=== PATIENT | female | born 1960 | race American Indian/Alaskan Native ===

== ENCOUNTER 2017-10-14 12:04 | Inpatient (IN) | payer MEDICARE ==
--- NOTE | 2017-10-14 13:10 | C.PDOC ---
History Of Present Illness REFERRED BY PODIATRY POSSIBLE L 1 TOE GANGRENE. WORSENING SX SINCE L LEG BYPASS MONTHS AGO. S/P LEG BYPASS X 3, LAST 2 WEEKS AGO. EVAL BY PODIATRY, "THEY WERE SCRAPING OFF STUFF" IN OFFICE DENIES PRIOR ABX FOR CURRENT SX. NO FEVER. PER DR REYNOLDS, CONSULT DR PATRICK Time Seen by Provider: 10/14/17 12:39 Chief Complaint (Nursing): Lower Extremity Problem/Injury Past Medical History Reviewed: Historical Data, Nursing Documentation, Vital Signs Vital Signs: Last Vital Signs Temp 98.1 F 10/14/17 12:19 Pulse 100 H 10/14/17 12:19 Resp 20 10/14/17 12:19 BP 118/70 10/14/17 12:19 Pulse Ox 96 10/14/17 14:52 - Medical History PMH: HTN, Hypercholesterolemia Family History: States: No Known Family Hx - Social History Hx Alcohol Use: No Hx Substance Use: No - Immunization History Hx Tetanus Toxoid Vaccination: No Hx Influenza Vaccination: No Hx Pneumococcal Vaccination: No Review Of Systems Cardiovascular: Negative for: Chest Pain Respiratory: Negative for: Shortness of Breath Gastrointestinal: Negative for: Vomiting Musculoskeletal: Negative for: Foot Pain Neurological: Negative for: Weakness, Numbness, Headache, Dizziness Physical Exam - Physical Exam Appears: Non-toxic, No Acute Distress Skin: Warm, Dry, No Rash Head: Normacephalic Eye(s): bilateral: PERRL Nose: Normal Oral Mucosa: Moist Lips: Normal Appearing Neck: Normal ROM Chest: Symmetrical Cardiovascular: Rhythm Regular, No Murmur Respiratory: No Accessory Muscle Use Extremity: Capillary Refill (<2 seconds), No Deformity, Other (LEFT LOWER EXTREMITY: FIRST DIGIT GANGRENOUS. NO LYMPHANGITIS) Neurological/Psych: Oriented x3, Normal Speech ED Course And Treatment - Laboratory Results Result Diagrams: 10/14/17 13:26 10/14/17 13:26 O2 Sat by Pulse Oximetry: 96 (RA) Pulse Ox Interpretation: Normal Progress - Re-Evaluation Re-evaluation Note: 10/14/17 13:11 D/W DR EDWARDS, STATES DOESNT ADMIT AND TO ADMIT MED WARP DRESSER 10/14/17 13:27 D/W PODIATRY RESIDENT 10/14/17 14:23 PS S/P ENDOSCOPY THIS YEAR, DX STOMACH ULCERS. HO BLACK BM BUT DENIES RECENT GI BLEED, ABN STOOL. NO ABD PAIN, NV. 10/14/17 14:24 D/W SURG RESIDENT DR BRADFORD 10/14/17 14:27 D/W DR MAYRA BRIONES WARP DRESSER AWARE OF ER FINDINGS WILL ADMIT - Data Reviewed Data Reviewed: Lab, Diagnostic imaging, EKG - Continuity of Care Discussed patient case with:: Patient, Family-HIPPA compliant, PMD Discussed pt. case with life consultant/specialty: Vascular Surgery, Other (PODIATRY) Disposition Counseled Patient/Family Regarding: Studies Performed, Diagnosis - Disposition Disposition: HOSPITALIZED Disposition Time: 14:33 Condition: STABLE Forms: [employer] (Austrian) - POA Present On Arrival: Poor Glycemic Control - Clinical Impression Clinical Impression: Toe gangrene, Anemia, Uncontrolled diabetes mellitus Decision To Admit - Pt Status Changed To: Hospital Disposition Of: Inpatient - Admit Certification Admit to Inpatient:: After my assessment, the patient will require hospitalization for at least two midnights. This is because of the severity of symptoms shown, intensity of services needed, and/or the medical risk in this patient being treated as an outpatient. - InPatient: Physician Admission Certification: I certify that this patient requires 2 or more midnights of care for the following reason:: SEE NOTE - . Bed Request Type: Regular Admitting Physician: Raul Toussaint Patient Diagnosis: Toe gangrene, Anemia, Uncontrolled diabetes mellitus
[2017-10-14] MEDS ORDERED: Vancomycin 1 GM 1 GM/250 ML BAG IV SCH (13:30)
[2017-10-14 13:32] LABS: BASO # 0.1 K/uL (0.0-0.2); BASO % 1.5 % (0.0-2.0); EOS # 0.1 K/uL (0.0-0.7); EOS % 1.4 % (0.0-4.0); HEMOGLOBIN 6.6 g/dL (11.0-16.0); LYMPH # 2.1 K/uL (1.0-4.3); LYMPH % 21.8 % (20.0-40.0); MEAN CELL VOLUME 80.9 fL (81.0-99.0); MEAN CORPUSCULAR HEMOGLOBIN 26.6 pg (27.0-31.0); MEAN CORPUSCULAR HGB CONC 32.8 g/dL (33.0-37.0); MEAN PLATELET VOLUME 8.4 fL (7.2-11.7); MONO # 0.5 K/uL (0.0-0.8); MONO % 4.9 % (0.0-10.0); NEUT # 6.8 K/uL (1.8-7.0); NEUT % 70.4 % (50.0-75.0); RBC 2.47 Mil/uL (3.80-5.20); RED CELL DISTRIBUTION WIDTH 18.4 % (11.5-14.5); WHITE BLOOD COUNT 9.7 K/uL (4.8-10.8)
[2017-10-14] MEDS ORDERED: Vancomycin 1 GM 1 GM/250 ML BAG IVPB ONE (13:34)
--- NOTE | 2017-10-14 13:44 | RAD ---
PROCEDURE: CHEST RADIOGRAPH, 1 VIEW HISTORY: MED CLEAR COMPARISON: None available. FINDINGS: LUNGS: Slightly increased - coarsened interstitial markings particularly in the mid to lower lung zones. Rule out mild chronic compensated pulmonary edema/CHF or possibly sequela of reactive- inflammatory airway disease or viral illness. PLEURA: No pneumothorax or pleural fluid seen. CARDIOVASCULAR: Medical clearance sternotomy wires and prostatic valve present. Heart is enlarged. OSSEOUS STRUCTURES: No significant abnormalities. VISUALIZED UPPER ABDOMEN: Normal. OTHER FINDINGS: None. IMPRESSION: Slightly increased - coarsened interstitial markings particularly in the mid to lower lung zones. Rule out mild chronic compensated pulmonary edema/CHF or possibly sequela of reactive- inflammatory airway disease or viral illness.
--- NOTE | 2017-10-14 13:46 | RAD ---
PROCEDURE: Left foot dated 10/14/2017 HISTORY: 1st toe gangrene COMPARISON: No prior FINDINGS: BONES: There appears to be mild cortical demineralization distal tuft distal phalanx 1st toe ; this could be due to disuse however early osteomyelitis not excluded. There is localized surrounding soft tissue loss about the distal phalanx consistent with this patient's history of gangrene. No evidence of acute displaced fracture nor dislocation. JOINTS: Normal. SOFT TISSUES: Normal. OTHER FINDINGS: None. IMPRESSION: There appears to be mild cortical demineralization distal tuft distal phalanx 1st toe ; this could be due to disuse however early osteomyelitis not excluded. There is localized surrounding soft tissue loss about the distal phalanx consistent with this patient's history of gangrene. No evidence of acute displaced fracture nor dislocation
[2017-10-14] MEDS ORDERED: Vancomycin 1 GM 1 GM/250 ML BAG IV ONE (13:50)
[2017-10-14 13:51] LABS: CALCIUM 8.5 mg/dl (8.6-10.4)
[2017-10-14] MEDS ORDERED: (Novolin R) Insulin Human Regular 100 units/ml vial IV STA (14:35)
[2017-10-14] MEDS ORDERED: (Novolin R) Insulin Human Regular 100 units/ml vial ONE (15:11)
[2017-10-14 16:43] LABS: INR 1.4; PROTHROMBIN TIME 15.3 SECONDS (9.7-12.2)
[2017-10-14] MEDS: Sodium Chloride 0.9% 1,000 ML IV SCH (19:05)
--- NOTE | 2017-10-14 19:29 | CP.PCM.CON ---
<Valeriano Tobar - Last Filed: 10/14/17 20:21> History of Present Illness - History of Present Illness History of Present Illness: Podiatry Consult Note- Dr. 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 Patient is seen resting comfortably in bed and in NAD. Patient reports that she was told to go to a new order clerk after a home visiting nurse from [place] told her to. She reports going to Dr. Hernández for the first time in which he removed her toenail in the office and instructed her to go to the hospital to get evaluated for vascular issues and possible bone infection. She reports she did not go to the hospital as instructed on because of recent of her brother. Patient appears to sad and in low spirits during visitation. Patient reports that her foot was more discolored in the past and underwent a revascularization about 2 weeks ago in which the toes has gotten "hotel casino floorperson" but the right big toe remains the same. She reports pain to the left big toe, describes the pain as pin and needles, rating the pain 8/10 on VAS scale. Reports a constant pain that stays localized to the left big toe. She denies nausea, fever, chest pain, or chills. She reports she has the same shortness of breath. PMH: uncontrolled DM, HTN, HLD, PVD, anemia, heart disease -Patient had trouble recalling all medical issues PSH: heart surgery, s/p leg bypass x3, left stent placement 2 weeks ago ALL: NKDA MEDS: see SEP list SH: 30 year smoker, denies drinking or illicit drug use FH: mother- DM, HTN father-DM Past Patient History - Past Social History Smoking Status: Light Smoker < 10 Cigarettes Daily - CARDIAC Hx Hypercholesterolemia: Yes Hx Hypertension: Yes - ENDOCRINE/METABOLIC Hx Diabetes Mellitus Type 2: Yes - MUSCULOSKELETAL/RHEUMATOLOGICAL Hx Falls: No - PSYCHIATRIC Hx Substance Use: No - SURGICAL HISTORY Hx Valve Replacement: Yes Other/Comment: left leg stent placement Meds Allergies/Adverse Reactions: Allergies Allergy/AdvReac Type Severity Reaction Status Date / Time No Known Allergies Allergy Verified 10/14/17 12:13 - Medications Medications: Current Medications Sodium Chloride (Sodium Chloride 0.9%) 1,000 mls @ 100 mls/hr IV .Q10H NYDIA Last Admin: 10/14/17 19:05 Dose: 100 mls/hr Physical Exam - Constitutional Appears: Well, Non-toxic, No Acute Distress - Extremities Exam Extremities exam: Negative for: calf tenderness Additional comments: Vasc: DP and PT unpalpable, lower extremities cool to cool, L foot increase warmth compared to contralateral side, edema noted to the entire left foot Ortho: pain with palpation to the left hallux and surrounding periwound, MM is 4 /5 in all four compartment secondary to age Neuro: gross sensation intact bilaterally, protective sensation diminished Derm: Dry gangrene noted to the distal left hallux to the level of the IPJ with nail plate absent from nail bed, wound base is 100% fibrous, distal mummification with demaracting process noted, no distinct demaraction from healthy tissue to necrotic tissue at this time, no active purulence drainage noted or expressed, malodorous, no appreciable erythema or streaking, no probe to bone, no tunneling, no undermining Results - Vital Signs Recent Vital Signs: Last Vital Signs Temp 98.5 F 10/14/17 19:23 Pulse 97 H 10/14/17 19:23 Resp 18 10/14/17 19:23 BP 117/70 10/14/17 19:23 Pulse Ox 97 10/14/17 15:50 - Labs Result Diagrams: 10/14/17 13:26 10/14/17 13:26 Labs: Laboratory Results - last 24 hr 10/14/17 10/14/17 10/14/17 13:26 13:26 14:58 WBC 9.7 RBC 2.47 L Hgb 6.6 L Hct 20.0 L MCV 80.9 L MCH 26.6 L MCHC 32.8 L RDW 18.4 H Plt Count 426 H MPV 8.4 Neut % (Auto) 70.4 Lymph % (Auto) 21.8 [place] % (Auto) 4.9 Eos % (Auto) 1.4 Baso % (Auto) 1.5 Neut # (Auto) 6.8 Lymph # (Auto) 2.1 [place] # (Auto) 0.5 Eos # (Auto) 0.1 Baso # (Auto) 0.1 PT INR APTT Sodium 135 Potassium 5.0 Chloride 100 Carbon Dioxide 23 Anion Gap 18 BUN 55 H Creatinine 1.6 H Est GFR ( Amer) 40 Est GFR (Non-Af Amer) 33 Random Glucose 408 H* Calcium 8.5 L Blood Type A POSITIVE Blood Type Confirm A POSITIVE Antibody Screen Negative 10/14/17 16:32 WBC RBC Hgb Hct MCV MCH MCHC RDW Plt Count MPV Neut % (Auto) Lymph % (Auto) [place] % (Auto) Eos % (Auto) Baso % (Auto) Neut # (Auto) Lymph # (Auto) [place] # (Auto) Eos # (Auto) Baso # (Auto) PT 15.3 H INR 1.4 APTT 30 Sodium Potassium Chloride Carbon Dioxide Anion Gap BUN Creatinine Est GFR ( Amer) Est GFR (Non-Af Amer) Random Glucose Calcium Blood Type Blood Type Confirm Antibody Screen Assessment & Plan - Assessment and Plan (Free Text) Assessment: 57 y.o female with PMHx of uncontrolled DM, HTN, HLD, PVD, anemia, heart disease with 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 Bhat WBC=9.7, absent leukocytosis X-rays impression- mild cortical dimineralization distal tuft distal phalanx 1st toe secondary to disuse vs early OM Wound culture taken in ER and pending Vascular on board- pending recommendations f/u ABIs/PVRs ID on board- pending recommendations Recommends psychology consult Cleansed left hallux with betadine, dressed with betadine w2d gauze and tape Left hallux most likely may need amputation pending vascular recommendations Spoke to patient treatment options and plans; patient understands may need future amputation of hallux Will continue to follow patient while in house Thank you for allowing us to take part in patient's care <Sheldon Bhat - Last Filed: 11/13/17 10:17> Meds - Medications Medications: Current Medications Amlodipine Besylate (Norvasc) 10 mg PO DAILY [facility] Last Admin: 10/20/17 09:57 Dose: Not Given Hydralazine HCl (Apresoline) 10 mg IVP Q6H PRN PRN Reason: Hypertension Last Admin: 11/12/17 00:33 Dose: 10 mg Insulin Aspart (Novolog) 0 unit SC Q6 NYDIA PRN Reason: Protocol Last Admin: 11/13/17 06:41 Dose: 2 unit Losartan Potassium (Cozaar) 100 mg PO DAILY [facility] Last Admin: 11/13/17 09:51 Dose: 100 mg Metoprolol Succinate (Toprol Xl) 100 mg PO DAILY [facility] Last Admin: 11/13/17 09:51 Dose: 100 mg Mupirocin (Bactroban 2% Nasal) 0.25 gm BROOK BID [facility] Last Admin: 11/13/17 09:51 Dose: 0.25 gm Nitroglycerin (Nitro-Bid 2% Oint) 1 ea TOP Q6 [facility] Last Admin: 11/13/17 06:43 Dose: 1 ea Ondansetron HCl (Zofran Inj) 4 mg IVP Q6H PRN PRN Reason: Nausea/Vomiting Last Admin: 10/30/17 08:51 Dose: 4 mg Pantoprazole Sodium (Protonix Inj) 40 mg IVP Q12H [facility] Last Admin: 11/13/17 06:44 Dose: 40 mg Phenytoin Sodium (Dilantin) 100 mg PO TID [facility] Last Admin: 11/13/17 09:51 Dose: 100 mg Potassium Chloride (K-Dur 20 Meq Er Tab) 20 meq PO DAILY [facility] Last Admin: 11/13/17 09:51 Dose: 20 meq Results - Vital Signs Recent Vital Signs: Last Vital Signs Temp 98.3 F 11/13/17 07:00 Pulse 85 11/13/17 09:51 Resp 20 11/13/17 07:00 BP 140/67 11/13/17 09:51 Pulse Ox 98 11/13/17 07:00 - Labs Result Diagrams: 11/11/17 06:16 11/11/17 06:16 Labs: Laboratory Results - last 24 hr 11/12/17 11/12/17 11/12/17 06:17 11:35 16:14 PT INR POC Glucose (mg/dL) 154 H 216 H 123 H 11/12/17 11/13/17 11/13/17 21:04 00:21 06:04 PT INR POC Glucose (mg/dL) 177 H 183 H 151 H 11/13/17 06:46 PT 45.1 H* D INR 3.8 D POC Glucose (mg/dL) Assessment & Plan - Assessment and Plan (Free Text) Plan: Agree with above plan after discussion with resident on case.
[2017-10-14] MEDS ORDERED: Heparin25000 units/250ml 1/2NS 25,000 UNITS/250 ML BAG IV PRN (20:16)
[2017-10-14] MEDS: Morphine 4 MG/ML VIAL IVP PRN (20:28)
[2017-10-14] MEDS ORDERED: Piperacillin/Tazobact 3.375 GM in Sodium Chloride 100 ML IVPB SCH (21:00)
[2017-10-14] MEDS: (Novolog) Insulin Aspart, Recombinant 100 u/ml 10 ml vial SC SCH (21:14)
--- NOTE | 2017-10-14 21:19 | CP.PCM.HP ---
History of Present Illness - History of Present Illness History of Present Illness: Cc: Left toe gangrene A 57 year old female with pmhx of DM, chronic smoker, HTN, dyslipidemia, heart valve sx with mechanical mitral valve on current anticoagulation with Coumadin and also severe PVD s/p multiple lower extremity angioplasties. The patient was referred to the ED by her powerhouse engineer for concerns of "bone infection" to her left first toe. The patient presents with gangrenous 1st left hallux with sharp pain which she rates as an 8/10 in severity. In the ED, the patient was noted to be severely anemic with a hgb of 6.6. The patient states that she had a recent GI work up in [place] where they found non-bleeding ulcers in her stomach and she was advised to take a PPI. The patient denies melena, brbpr, constipation, diarrhea. Denies chest pain, sob, dizziness, headache, fever or chills. The patient was admitted for further management. Present on Admission - Present on Admission Any Indicators Present on Admission: Yes History of Uncontrolled Diabetes: Yes Review of Systems - Review of Systems All systems: reviewed and no additional remarkable complaints except (as stated) - Constitutional Constitutional: As Per HPI - Cardiovascular Cardiovascular: As Per HPI - Respiratory Respiratory: As Per HPI - Gastrointestinal Gastrointestinal: As Per HPI. absent: Abdominal Pain, Hematochezia, Melena, Nausea, Vomiting Past Patient History - Past Medical History & Family History Past Medical History?: Yes - Past Social History Smoking Status: Light Smoker < 10 Cigarettes Daily - CARDIAC Hx Hypercholesterolemia: Yes Hx Hypertension: Yes - PULMONARY Hx Respiratory Disorders: Yes Hx Asthma: Yes - NEUROLOGICAL Hx Neurological Disorder: Yes Hx Seizures: Yes - HEENT Hx HEENT Problems: No - RENAL Hx Chronic Kidney Disease: No - ENDOCRINE/METABOLIC Hx Diabetes Mellitus Type 2: Yes - HEMATOLOGICAL/ONCOLOGICAL Hx Blood Disorders: Yes Hx Anemia: Yes Hx Blood Transfusions: Yes Hx Bruising: Yes - INTEGUMENTARY Hx Dermatological Problems: No - MUSCULOSKELETAL/RHEUMATOLOGICAL Hx Falls: No - GASTROINTESTINAL Hx Constipation: Yes Hx Gastritis: Yes Hx Gastroesophageal Reflux: Yes - GENITOURINARY/GYNECOLOGICAL Hx Genitourinary Disorders: No - PSYCHIATRIC Hx Substance Use: No - SURGICAL HISTORY Hx Valve Replacement: Yes Other/Comment: left leg stent placement - ANESTHESIA Hx Anesthesia: Yes Hx Anesthesia Reactions: No Has any member of the family had a problem w/ anesthesia?: No Meds Allergies/Adverse Reactions: Allergies Allergy/AdvReac Type Severity Reaction Status Date / Time No Known Allergies Allergy Verified 10/14/17 12:13 Physical Exam - Constitutional Appears: Well, No Acute Distress - Head Exam Head Exam: ATRAUMATIC, NORMOCEPHALIC - Eye Exam Eye Exam: EOMI, Normal appearance Pupil Exam: NORMAL ACCOMODATION - ENT Exam ENT Exam: Mucous Membranes Moist, Normal Exam - Neck Exam Neck exam: Positive for: Normal Inspection - Respiratory Exam Respiratory Exam: Clear to Auscultation Bilateral, NORMAL BREATHING PATTERN - Cardiovascular Exam Cardiovascular Exam: REGULAR RHYTHM, +S1, +S2 - GI/Abdominal Exam GI & Abdominal Exam: Normal Bowel Sounds, Soft - Extremities Exam Extremities exam: Positive for: full ROM Additional comments: gangrene left big toe - Back Exam Back exam: NORMAL INSPECTION - Neurological Exam Neurological exam: Alert, Oriented x3 - Psychiatric Exam Psychiatric exam: Normal Affect, Normal Mood - Skin Skin Exam: Dry, Normal Color, Warm Results - Vital Signs Recent Vital Signs: Last Vital Signs Temp 98.1 F 10/14/17 19:53 Pulse 99 H 10/14/17 19:53 Resp 18 10/14/17 19:53 BP 108/69 10/14/17 19:53 Pulse Ox 97 10/14/17 15:50 - Labs Result Diagrams: 10/17/17 07:07 10/17/17 07:07 Labs: Laboratory Results - last 24 hr 10/14/17 10/14/17 10/14/17 13:26 13:26 14:58 WBC 9.7 RBC 2.47 L Hgb 6.6 L Hct 20.0 L MCV 80.9 L MCH 26.6 L MCHC 32.8 L RDW 18.4 H Plt Count 426 H MPV 8.4 Neut % (Auto) 70.4 Lymph % (Auto) 21.8 [place] % (Auto) 4.9 Eos % (Auto) 1.4 Baso % (Auto) 1.5 Neut # (Auto) 6.8 Lymph # (Auto) 2.1 [place] # (Auto) 0.5 Eos # (Auto) 0.1 Baso # (Auto) 0.1 PT INR APTT Sodium 135 Potassium 5.0 Chloride 100 Carbon Dioxide 23 Anion Gap 18 BUN 55 H Creatinine 1.6 H Est GFR ( Amer) 40 Est GFR (Non-Af Amer) 33 POC Glucose (mg/dL) Random Glucose 408 H* Calcium 8.5 L Blood Type A POSITIVE Blood Type Confirm A POSITIVE Antibody Screen Negative 10/14/17 10/14/17 16:32 21:10 WBC RBC Hgb Hct MCV MCH MCHC RDW Plt Count MPV Neut % (Auto) Lymph % (Auto) [place] % (Auto) Eos % (Auto) Baso % (Auto) Neut # (Auto) Lymph # (Auto) [place] # (Auto) Eos # (Auto) Baso # (Auto) PT 15.3 H INR 1.4 APTT 30 Sodium Potassium Chloride Carbon Dioxide Anion Gap BUN Creatinine Est GFR ( Amer) Est GFR (Non-Af Amer) POC Glucose (mg/dL) 338 H Random Glucose Calcium Blood Type Blood Type Confirm Antibody Screen - Imaging and Cardiology Chest x-ray Additional comment: PROCEDURE: CHEST RADIOGRAPH, 1 VIEW HISTORY: MED CLEAR COMPARISON: None available. FINDINGS: LUNGS: Slightly increased - coarsened interstitial markings particularly in the mid to lower lung zones. Rule out mild chronic compensated pulmonary edema/CHF or possibly sequela of reactive- inflammatory airway disease or viral illness. PLEURA: No pneumothorax or pleural fluid seen. CARDIOVASCULAR: Medical clearance sternotomy wires and prostatic valve present. Heart is enlarged. OSSEOUS STRUCTURES: No significant abnormalities. VISUALIZED UPPER ABDOMEN: Normal. OTHER FINDINGS: None. IMPRESSION: Slightly increased - coarsened interstitial markings particularly in the mid to lower lung zones. Rule out mild chronic compensated pulmonary edema/CHF or possibly sequela of reactive- inflammatory airway disease or viral illness. Assessment & Plan (1) Toe gangrene Status: Acute Priority: High (2) Anemia Status: Acute Priority: High (3) CAD (coronary artery disease) Status: Chronic Priority: Low (4) PVD (peripheral vascular disease) Status: Chronic Priority: High (5) Uncontrolled diabetes mellitus Status: Chronic Priority: Medium (6) Dyslipidemia Status: Chronic Priority: Low - Assessment and Plan (Free Text) Assessment: 57 year old with hx of PVD, CAD, DM, HTN, dyslipidemia presents with left big toe gangrene and severe anemia Plan: Transfuse 2 units PRBC Start Vancomycin/Zosyn for toe infection Begin Heparin drip Hold coumadin Vascular consult Podiatry consult GI and ID consults GI prophylaxis Pain medication monitor labs wound/blood cultures
[2017-10-14] MEDS: Piperacill/Tazo 3.375gm in Dex 3.375 GM/50 ML BAG IVPB SCH (22:48)
[2017-10-15] MEDS: Vancomycin 1 gm/NS 200 ml 1 GM/200 ML BAG IVPB SCH ×2 (02:07→14:43)
[2017-10-15] MEDS: Morphine 4 MG/ML VIAL IVP PRN ×2 (02:20→17:23)
[2017-10-15] MEDS: Sodium Chloride 0.9% 1,000 ML IV SCH ×2 (04:45→14:46)
[2017-10-15] MEDS: Piperacill/Tazo 3.375gm in Dex 3.375 GM/50 ML BAG IVPB SCH ×3 (04:55→21:14)
--- NOTE | 2017-10-15 06:45 | CP.PCM.CON ---
History of Present Illness - History of Present Illness History of Present Illness: Vascular Consult: Dr. Cota Pt is a 57F with PMHx significant for HTN, DM, HLD, CAD s/p stents, COPD, PVD & anemia who presented to with complaints of L 1st toe gangrene. Pt was sent by her graphic arts technician for concerns of osteomyelitis. Pt states that she has recently had revascularization done on both of her legs by Dr. Lane, but can 't exactly recall what he did. She believes "he put stents" in her legs, and was done at an [facility]. Pt is a poor historian and not much more could be elicited from her. Currently, admits to pain in her L big toe & doesn' t want anyone touching it. Denies other complaints at this time. Denies F/C, chest pain. PMHx: as listed above PSHx: coronory stents, distal revascularization procedure SocialHx: smoker x 30 yrs; denies EtOH Allergies: NKDA Review of Systems - Review of Systems All systems: reviewed and no additional remarkable complaints except (as per HPI ) Past Patient History - Past Medical History & Family History Past Medical History?: Yes - Past Social History Smoking Status: Light Smoker < 10 Cigarettes Daily - CARDIAC Hx Hypercholesterolemia: Yes Hx Hypertension: Yes - PULMONARY Hx Respiratory Disorders: Yes Hx Asthma: Yes - NEUROLOGICAL Hx Neurological Disorder: Yes Hx Seizures: Yes - HEENT Hx HEENT Problems: No - RENAL Hx Chronic Kidney Disease: No - ENDOCRINE/METABOLIC Hx Diabetes Mellitus Type 2: Yes - HEMATOLOGICAL/ONCOLOGICAL Hx Blood Disorders: Yes Hx Anemia: Yes Hx Blood Transfusions: Yes Hx Bruising: Yes - INTEGUMENTARY Hx Dermatological Problems: No - MUSCULOSKELETAL/RHEUMATOLOGICAL Hx Falls: No - GASTROINTESTINAL Hx Constipation: Yes Hx Gastritis: Yes Hx Gastroesophageal Reflux: Yes - GENITOURINARY/GYNECOLOGICAL Hx Genitourinary Disorders: No - PSYCHIATRIC Hx Substance Use: No - SURGICAL HISTORY Hx Valve Replacement: Yes Other/Comment: left leg stent placement - ANESTHESIA Hx Anesthesia: Yes Hx Anesthesia Reactions: No Has any member of the family had a problem w/ anesthesia?: No Meds Allergies/Adverse Reactions: Allergies Allergy/AdvReac Type Severity Reaction Status Date / Time No Known Allergies Allergy Verified 10/14/17 12:13 - Medications Medications: Current Medications Amlodipine Besylate (Norvasc) 10 mg PO DAILY [facility] Aspirin (Aspirin Chewable) 81 mg PO DAILY [facility] Clopidogrel Bisulfate (Plavix) 75 mg PO DAILY [facility] Famotidine (Pepcid) 20 mg IVP DAILY [facility] Folic Acid (Folic Acid) 1 mg PO DAILY [facility] Sodium Chloride (Sodium Chloride 0.9%) 1,000 mls @ 100 mls/hr IV .Q10H [facility] Last Admin: 10/14/17 19:05 Dose: 100 mls/hr Heparin Sodium/Sodium Chloride (Heparin 51847 Units/250ml 1/2 Normal Saline) 25 ,000 units in 250 mls @ 16.084 mls/hr IV .[id number] PRN; Protocol; 18 UNITS/KG/HR PRN Reason: PROTOCOL Last Admin: 10/15/17 02:16 Dose: 18 units/kg/hr, 16.084 mls/hr Vancomycin/Sodium Chloride (Vancomycin 1 Gm/Ns 200 Ml) 1 gm in 200 mls @ 166.6 mls/hr IVPB Q12H [facility] PRN Reason: Protocol Stop: 10/20/17 02:01 Last Admin: 10/15/17 02:07 Dose: 166.6 mls/hr Piperacillin Sod/Tazobactam Sod (Zosyn 3.375 Gm Iv Premix) 3.375 gm in 50 mls @ 200 mls/hr IVPB Q8H [facility] PRN Reason: Protocol Last Admin: 10/15/17 04:55 Dose: 200 mls/hr Insulin Aspart (Novolog) 0 unit SC ACHS [facility] PRN Reason: Protocol Last Admin: 10/14/17 21:14 Dose: Not Given Morphine Sulfate (Morphine) 2 mg IVP Q4 PRN PRN Reason: Pain, severe (8-10) Last Admin: 10/15/17 02:20 Dose: 2 mg Phenytoin Sodium (Dilantin) 100 mg PO TID [facility] Pneumococcal Polyvalent Vaccine (Pneumovax 23 Vaccine) 0.5 ml IM .ONCE ONE Stop: 10/16/17 10:01 Physical Exam - Constitutional Appears: No Acute Distress - Head Exam Head Exam: ATRAUMATIC, NORMOCEPHALIC - Eye Exam Eye Exam: Normal appearance - ENT Exam ENT Exam: Mucous Membranes Moist - Respiratory Exam Respiratory Exam: NORMAL BREATHING PATTERN - Cardiovascular Exam Cardiovascular Exam: RRR - GI/Abdominal Exam GI & Abdominal Exam: Soft. absent: Tenderness - Extremities Exam Additional comments: LLE: warm, no palpable DP/PT, no palpable popliteal, palpable femoral RLE: warm, no palpable DP/PT, palpable popliteal, palpable femoral - Neurological Exam Neurological exam: Alert - Skin Skin Exam: Dry, Warm Results - Vital Signs Recent Vital Signs: Last Vital Signs Temp 98.3 F 10/15/17 01:45 Pulse 89 10/15/17 01:45 Resp 20 10/15/17 01:45 BP 126/80 10/15/17 01:45 Pulse Ox 98 10/14/17 23:37 - Labs Result Diagrams: 10/14/17 13:26 10/14/17 13:26 Labs: Laboratory Results - last 24 hr 10/14/17 10/14/17 10/14/17 13:26 13:26 14:58 WBC 9.7 RBC 2.47 L Hgb 6.6 L Hct 20.0 L MCV 80.9 L MCH 26.6 L MCHC 32.8 L RDW 18.4 H Plt Count 426 H MPV 8.4 Neut % (Auto) 70.4 Lymph % (Auto) 21.8 [place] % (Auto) 4.9 Eos % (Auto) 1.4 Baso % (Auto) 1.5 Neut # (Auto) 6.8 Lymph # (Auto) 2.1 [place] # (Auto) 0.5 Eos # (Auto) 0.1 Baso # (Auto) 0.1 PT INR APTT Sodium 135 Potassium 5.0 Chloride 100 Carbon Dioxide 23 Anion Gap 18 BUN 55 H Creatinine 1.6 H Est GFR ( Amer) 40 Est GFR (Non-Af Amer) 33 POC Glucose (mg/dL) Random Glucose 408 H* Calcium 8.5 L Blood Type A POSITIVE Blood Type Confirm A POSITIVE Antibody Screen Negative 10/14/17 10/14/17 16:32 21:10 WBC RBC Hgb Hct MCV MCH MCHC RDW Plt Count MPV Neut % (Auto) Lymph % (Auto) [place] % (Auto) Eos % (Auto) Baso % (Auto) Neut # (Auto) Lymph # (Auto) [place] # (Auto) Eos # (Auto) Baso # (Auto) PT 15.3 H INR 1.4 APTT 30 Sodium Potassium Chloride Carbon Dioxide Anion Gap BUN Creatinine Est GFR ( Amer) Est GFR (Non-Af Amer) POC Glucose (mg/dL) 338 H Random Glucose Calcium Blood Type Blood Type Confirm Antibody Screen Assessment & Plan - Assessment and Plan (Free Text) Assessment: 57F with PVD & L hallux gangrene Plan: - f/u CT angio, JHOAN/PVRs - hallux wound management per podiatry - d/w Dr. Beata Lamb, PGY-3
[2017-10-15 08:35] LABS: BASO # 0.1 K/uL (0.0-0.2); BASO % 0.6 % (0.0-2.0); EOS # 0.2 K/uL (0.0-0.7); EOS % 2.2 % (0.0-4.0); HEMOGLOBIN 8.4 g/dL (11.0-16.0); LYMPH # 2.2 K/uL (1.0-4.3); LYMPH % 22.3 % (20.0-40.0); MEAN CELL VOLUME 80.6 fL (81.0-99.0); MEAN CORPUSCULAR HEMOGLOBIN 26.8 pg (27.0-31.0); MEAN CORPUSCULAR HGB CONC 33.2 g/dL (33.0-37.0); MEAN PLATELET VOLUME 8.5 fL (7.2-11.7); MONO # 0.6 K/uL (0.0-0.8); MONO % 6.7 % (0.0-10.0); NEUT # 6.6 K/uL (1.8-7.0); NEUT % 68.2 % (50.0-75.0); RBC 3.16 Mil/uL (3.80-5.20); RED CELL DISTRIBUTION WIDTH 17.2 % (11.5-14.5); WHITE BLOOD COUNT 9.7 K/uL (4.8-10.8)
[2017-10-15] MEDS: (Novolog) Insulin Aspart, Recombinant 100 u/ml 10 ml vial SC SCH ×4 (08:37→21:18)
[2017-10-15 08:55] LABS: ALB/GLOB RATIO 0.8 (1.0-2.1); ALBUMIN 3.3 g/dL (3.5-5.0); AST/SGOT 25 U/L (14-36); BLOOD UREA NITROGEN 45 mg/dL (7-17); CALCIUM 8.1 mg/dl (8.6-10.4); GFR AFRICAN-AMERICAN 43; GFR NON-AFRICAN AMERICAN 36; HDL CHOLESTEROL 33 mg/dL (30-70)
[2017-10-15 08:59] LABS: ALT/SGPT < 6 U/L (9-52)
[2017-10-15 09:07] LABS: LDL CHOLESTEROL 119 mg/dL (0-129)
--- NOTE | 2017-10-15 09:12 | CP.PCM.PN ---
Subjective - Date & Time of Evaluation Date of Evaluation: 10/15/17 Time of Evaluation: 09:08 - Subjective Subjective: 57 y.o female with PMH of uncontrolled DM, HTN, HLD, PVD, anemia, heart disease seen at bedside for gangrenous left 1st hallux with underlying OM. Patient is AAO x 3 and NAD at time of visit. Says that pain is well controlled at this time. Denies any acute overnight events or any further pedal complaints at this time. Denies any recent N/V/F/C/CP/SOB/D/posterior calf pain when squeezed Objective - Vital Signs/Intake and Output Vital Signs (last 24 hours): Temp Pulse Resp BP Pulse Ox 98.9 F 84 20 109/72 98 10/15/17 06:00 10/15/17 06:00 10/15/17 06:00 10/15/17 06:00 10/15/17 06:00 Intake and Output: 10/15/17 10/15/17 06:59 18:59 Intake Total 1705 Balance 1705 - Medications Medications: Current Medications Amlodipine Besylate (Norvasc) 10 mg PO DAILY [facility] Aspirin (Aspirin Chewable) 81 mg PO DAILY [facility] Clopidogrel Bisulfate (Plavix) 75 mg PO DAILY [facility] Famotidine (Pepcid) 20 mg IVP DAILY [facility] Folic Acid (Folic Acid) 1 mg PO DAILY [facility] Sodium Chloride (Sodium Chloride 0.9%) 1,000 mls @ 100 mls/hr IV .Q10H [facility] Last Admin: 10/15/17 04:45 Dose: Not Given Heparin Sodium/Sodium Chloride (Heparin 29438 Units/250ml 1/2 Normal Saline) 25 ,000 units in 250 mls @ 16.084 mls/hr IV .[id number] PRN; Protocol; 18 UNITS/KG/HR PRN Reason: PROTOCOL Last Admin: 10/15/17 02:16 Dose: 18 units/kg/hr, 16.084 mls/hr Vancomycin/Sodium Chloride (Vancomycin 1 Gm/Ns 200 Ml) 1 gm in 200 mls @ 166.6 mls/hr IVPB Q12H [facility] PRN Reason: Protocol Stop: 10/20/17 02:01 Last Admin: 10/15/17 02:07 Dose: 166.6 mls/hr Piperacillin Sod/Tazobactam Sod (Zosyn 3.375 Gm Iv Premix) 3.375 gm in 50 mls @ 200 mls/hr IVPB Q8H [facility] PRN Reason: Protocol Last Admin: 10/15/17 04:55 Dose: 200 mls/hr Insulin Aspart (Novolog) 0 unit SC ACHS [facility] PRN Reason: Protocol Last Admin: 10/15/17 08:37 Dose: 5 unit Morphine Sulfate (Morphine) 2 mg IVP Q4 PRN PRN Reason: Pain, severe (8-10) Last Admin: 10/15/17 02:20 Dose: 2 mg Phenytoin Sodium (Dilantin) 100 mg PO TID [facility] Pneumococcal Polyvalent Vaccine (Pneumovax 23 Vaccine) 0.5 ml IM .ONCE ONE Stop: 10/16/17 10:01 - Labs Labs: 10/15/17 08:24 10/15/17 08:24 PT 15.3 SECONDS (9.7-12.2) H 10/14/17 16:32 INR 1.4 10/14/17 16:32 APTT 86 SECONDS (21-34) H D 10/15/17 08:24 - Constitutional Appears: Well, Non-toxic, No Acute Distress - Extremities Exam Additional comments: Vasc: DP and PT unpalpable, lower extremities cool to cool, L foot increase warmth compared to contralateral side, edema noted to the entire left foot Ortho: pain with palpation to the left hallux and surrounding periwound, MM is 4 /5 in all four compartments consistent with age Neuro: gross sensation intact bilaterally, protective sensation diminished Derm: Dry gangrene noted to the distal left hallux to the level of the IPJ with nail plate absent from nail bed, wound base is 100% necrotic and gangrenous, distal mummification with demaracting process noted, no active purulent drainage noted or expressed, no malodor, no appreciable erythema or streaking, no probe to bone, no tunneling, no undermining. No other grossly ischemic changes appreciated to b/l feet - Neurological Exam Neurological Exam: Alert, Awake, Oriented x3 - Psychiatric Exam Psychiatric exam: Normal Affect, Normal Mood Assessment and Plan - Assessment and Plan (Free Text) Assessment: 57 y.o female with PMH of uncontrolled DM, HTN, HLD, PVD, anemia, heart disease seen at bedside for gangrenous left 1st hallux with underlying OM Plan: Patient seen and evaluated at bedside Plan discussed with attending, Dr. Bhat Charts, labs, vitals reviewed Afebrile, Absent leukocytosis on last CBC Continue IV abx per ID Continue pain management and anticoagulation per Medicine L foot xray: Mild cortical demineralization to distal tuft of distal phalanx of first digit secondary to disuse vs. OM JHOAN/PVR- pending Wound cx - pending Patient unable to undergo CT angiogram due to abnormal GFR per Dr. Weinberg Wound dressed with betadine, DSD Podiatry will continue to follow patient while in house Dr. Bhat to discuss with Dr. Weinberg what next step in treatment should be No plan for surgical intervention at this time
--- NOTE | 2017-10-15 12:35 | CP.PCM.CON ---
<Bobby Zhou - Last Filed: 10/15/17 12:53> History of Present Illness - History of Present Illness History of Present Illness: PGY4 Initial GI Consult Brenna Dawkins is a 57F with Hx of HTN, DM, HLD, CAD s/p stents, COPD, PVD & anemia who presented to with complaints of L 1st toe gangrene. Pt was sent by her web user experience strategist for concerns of osteomyelitis. Pt states that she has recently had revascularization done on both of her legs by Dr. Lane. GI was consulted for anemia. Pt states that she had a recent work-up at [place], 2-3 weeks ago which included endoscopy. She notes that they found non-bleeding ulcer in her stomach and was advised to take PPI. She notes hx of anemia and continued bleeding from her toe. She denies any abd pain, BRBPR, melena, hematemesis or coffee-ground emesis. She states that she may have had a colonocopy but does not recall. She is currently on heparin drip and received 2 units PRBC PMHx: as listed above PSHx: coronory stents, distal revascularization procedure SocialHx: smoker x 30 yrs; denies EtOH Endo Hx: EGD 2-3 weeks ago at [facility] that revealed gastric ulcers? ROS: 12 point ROS conducted and neg other than above Past Patient History - Past Medical History & Family History Past Medical History?: Yes - Past Social History Smoking Status: Light Smoker < 10 Cigarettes Daily - CARDIAC Hx Hypercholesterolemia: Yes Hx Hypertension: Yes - PULMONARY Hx Respiratory Disorders: Yes Hx Asthma: Yes - NEUROLOGICAL Hx Neurological Disorder: Yes Hx Seizures: Yes - HEENT Hx HEENT Problems: No - RENAL Hx Chronic Kidney Disease: No - ENDOCRINE/METABOLIC Hx Diabetes Mellitus Type 2: Yes - HEMATOLOGICAL/ONCOLOGICAL Hx Blood Disorders: Yes Hx Anemia: Yes Hx Blood Transfusions: Yes Hx Bruising: Yes - INTEGUMENTARY Hx Dermatological Problems: No - MUSCULOSKELETAL/RHEUMATOLOGICAL Hx Falls: No - GASTROINTESTINAL Hx Constipation: Yes Hx Gastritis: Yes Hx Gastroesophageal Reflux: Yes - GENITOURINARY/GYNECOLOGICAL Hx Genitourinary Disorders: No - PSYCHIATRIC Hx Substance Use: No - SURGICAL HISTORY Hx Valve Replacement: Yes Other/Comment: left leg stent placement - ANESTHESIA Hx Anesthesia: Yes Hx Anesthesia Reactions: No Has any member of the family had a problem w/ anesthesia?: No Meds Allergies/Adverse Reactions: Allergies Allergy/AdvReac Type Severity Reaction Status Date / Time No Known Allergies Allergy Verified 10/14/17 12:13 - Medications Medications: Current Medications Amlodipine Besylate (Norvasc) 10 mg PO DAILY [facility] Last Admin: 10/15/17 10:12 Dose: 10 mg Aspirin (Aspirin Chewable) 81 mg PO DAILY [facility] Last Admin: 10/15/17 10:12 Dose: 81 mg Clopidogrel Bisulfate (Plavix) 75 mg PO DAILY [facility] Last Admin: 10/15/17 10:12 Dose: 75 mg Famotidine (Pepcid) 20 mg IVP DAILY [facility] Last Admin: 10/15/17 10:12 Dose: 20 mg Folic Acid (Folic Acid) 1 mg PO DAILY [facility] Last Admin: 10/15/17 10:12 Dose: 1 mg Sodium Chloride (Sodium Chloride 0.9%) 1,000 mls @ 100 mls/hr IV .Q10H [facility] Last Admin: 10/15/17 04:45 Dose: Not Given Heparin Sodium/Sodium Chloride (Heparin 02641 Units/250ml 1/2 Normal Saline) 25 ,000 units in 250 mls @ 16.084 mls/hr IV .[id number] PRN; Protocol; 18 UNITS/KG/HR PRN Reason: PROTOCOL Last Admin: 10/15/17 02:16 Dose: 18 units/kg/hr, 16.084 mls/hr Vancomycin/Sodium Chloride (Vancomycin 1 Gm/Ns 200 Ml) 1 gm in 200 mls @ 166.6 mls/hr IVPB Q12H [facility] PRN Reason: Protocol Stop: 10/20/17 02:01 Last Admin: 10/15/17 02:07 Dose: 166.6 mls/hr Piperacillin Sod/Tazobactam Sod (Zosyn 3.375 Gm Iv Premix) 3.375 gm in 50 mls @ 200 mls/hr IVPB Q8H [facility] PRN Reason: Protocol Last Admin: 10/15/17 04:55 Dose: 200 mls/hr Insulin Aspart (Novolog) 0 unit SC ACHS [facility] PRN Reason: Protocol Last Admin: 10/15/17 08:37 Dose: 5 unit Morphine Sulfate (Morphine) 2 mg IVP Q4 PRN PRN Reason: Pain, severe (8-10) Last Admin: 10/15/17 02:20 Dose: 2 mg Phenytoin Sodium (Dilantin) 100 mg PO TID [facility] Last Admin: 10/15/17 10:12 Dose: 100 mg Pneumococcal Polyvalent Vaccine (Pneumovax 23 Vaccine) 0.5 ml IM .ONCE ONE Stop: 10/16/17 10:01 Physical Exam - Constitutional Appears: Well, No Acute Distress - Head Exam Head Exam: ATRAUMATIC, NORMOCEPHALIC - Eye Exam Eye Exam: Normal appearance - ENT Exam ENT Exam: Mucous Membranes Moist, Normal Exam - Respiratory Exam Respiratory Exam: Clear to Auscultation Bilateral, NORMAL BREATHING PATTERN. absent: Rales, Rhonchi, Wheezes, Respiratory Distress - Cardiovascular Exam Cardiovascular Exam: REGULAR RHYTHM, +S1, +S2 - GI/Abdominal Exam GI & Abdominal Exam: Normal Bowel Sounds, Soft. absent: Firm, Guarding, Rebound , Rigid - Extremities Exam Extremities exam: Negative for: joint swelling Additional comments: bandage foot with bloody bandages - Neurological Exam Neurological exam: Alert, Oriented x3 - Psychiatric Exam Psychiatric exam: Normal Affect, Normal Mood - Skin Skin Exam: Dry, Intact, Normal Color, Warm Results - Vital Signs Recent Vital Signs: Last Vital Signs Temp 98.2 F 10/15/17 08:00 Pulse 80 10/15/17 08:00 Resp 20 10/15/17 08:00 BP 101/64 10/15/17 08:00 Pulse Ox 96 10/15/17 08:00 - Labs Result Diagrams: 10/15/17 08:24 10/15/17 08:24 Labs: Laboratory Results - last 24 hr 10/14/17 10/14/17 10/14/17 13:26 13:26 14:58 WBC 9.7 RBC 2.47 L Hgb 6.6 L Hct 20.0 L MCV 80.9 L MCH 26.6 L MCHC 32.8 L RDW 18.4 H Plt Count 426 H MPV 8.4 Neut % (Auto) 70.4 Lymph % (Auto) 21.8 [place] % (Auto) 4.9 Eos % (Auto) 1.4 Baso % (Auto) 1.5 Neut # (Auto) 6.8 Lymph # (Auto) 2.1 [place] # (Auto) 0.5 Eos # (Auto) 0.1 Baso # (Auto) 0.1 PT INR APTT Sodium 135 Potassium 5.0 Chloride 100 Carbon Dioxide 23 Anion Gap 18 BUN 55 H Creatinine 1.6 H Est GFR ( Amer) 40 Est GFR (Non-Af Amer) 33 POC Glucose (mg/dL) Random Glucose 408 H* Calcium 8.5 L Total Bilirubin AST ALT Alkaline Phosphatase Total Protein Albumin Globulin Albumin/Globulin Ratio Triglycerides Cholesterol LDL Cholesterol Direct HDL Cholesterol Blood Type A POSITIVE Blood Type Confirm A POSITIVE Antibody Screen Negative 10/14/17 10/14/17 10/15/17 16:32 21:10 07:54 WBC RBC Hgb Hct MCV MCH MCHC RDW Plt Count MPV Neut % (Auto) Lymph % (Auto) [place] % (Auto) Eos % (Auto) Baso % (Auto) Neut # (Auto) Lymph # (Auto) [place] # (Auto) Eos # (Auto) Baso # (Auto) PT 15.3 H INR 1.4 APTT 30 Sodium Potassium Chloride Carbon Dioxide Anion Gap BUN Creatinine Est GFR ( Amer) Est GFR (Non-Af Amer) POC Glucose (mg/dL) 338 H 351 H Random Glucose Calcium Total Bilirubin AST ALT Alkaline Phosphatase Total Protein Albumin Globulin Albumin/Globulin Ratio Triglycerides Cholesterol LDL Cholesterol Direct HDL Cholesterol Blood Type Blood Type Confirm Antibody Screen 10/15/17 10/15/17 10/15/17 08:24 08:24 08:24 WBC 9.7 RBC 3.16 L Hgb 8.4 L Hct 25.4 L MCV 80.6 L MCH 26.8 L MCHC 33.2 RDW 17.2 H Plt Count 370 MPV 8.5 Neut % (Auto) 68.2 Lymph % (Auto) 22.3 [place] % (Auto) 6.7 Eos % (Auto) 2.2 Baso % (Auto) 0.6 Neut # (Auto) 6.6 Lymph # (Auto) 2.2 [place] # (Auto) 0.6 Eos # (Auto) 0.2 Baso # (Auto) 0.1 PT INR APTT 86 H D Sodium 139 Potassium 5.2 Chloride 105 Carbon Dioxide 22 Anion Gap 17 BUN 45 H Creatinine 1.5 H Est GFR ( Amer) 43 Est GFR (Non-Af Amer) 36 POC Glucose (mg/dL) Random Glucose 340 H Calcium 8.1 L Total Bilirubin 0.6 AST 25 ALT < 6 L Alkaline Phosphatase 173 H Total Protein 7.2 Albumin 3.3 L Globulin 3.9 Albumin/Globulin Ratio 0.8 L Triglycerides 182 H Cholesterol 191 LDL Cholesterol Direct 119 HDL Cholesterol 33 Blood Type Blood Type Confirm Antibody Screen 10/15/17 12:06 WBC RBC Hgb Hct MCV MCH MCHC RDW Plt Count MPV Neut % (Auto) Lymph % (Auto) [place] % (Auto) Eos % (Auto) Baso % (Auto) Neut # (Auto) Lymph # (Auto) [place] # (Auto) Eos # (Auto) Baso # (Auto) PT INR APTT Sodium Potassium Chloride Carbon Dioxide Anion Gap BUN Creatinine Est GFR ( Amer) Est GFR (Non-Af Amer) POC Glucose (mg/dL) 266 H Random Glucose Calcium Total Bilirubin AST ALT Alkaline Phosphatase Total Protein Albumin Globulin Albumin/Globulin Ratio Triglycerides Cholesterol LDL Cholesterol Direct HDL Cholesterol Blood Type Blood Type Confirm Antibody Screen Assessment & Plan - Assessment and Plan (Free Text) Assessment: Brenna Dawkins is a 57F w/ hx of osteomyelitis, anemia, PVD, CAD who presents with gangrenous toe. Pt was found to be anemic with a hgb of 6.7. Anemia, etiology likely from chronic disease vs foot; r/o GI loss Hx of anemia Gastric ulcers? Plan: -keep hgb above 8 -transfuse as nessessay -monitor hgb -continue PPI BID 40mg -no indication for GI intervention at this time -will obtain records from [facility] to confirm reports of clean based gastric ulcers -pt is on anticoag of heparin, advise close monitoring of h/h -will continue to monitor D/W Dr. Cordoba <Bradley Cordoba - Last Filed: 10/15/17 16:19> Meds - Medications Medications: Current Medications Amlodipine Besylate (Norvasc) 10 mg PO DAILY [facility] Last Admin: 10/15/17 10:12 Dose: 10 mg Aspirin (Aspirin Chewable) 81 mg PO DAILY [facility] Last Admin: 10/15/17 10:12 Dose: 81 mg Clopidogrel Bisulfate (Plavix) 75 mg PO DAILY [facility] Last Admin: 10/15/17 10:12 Dose: 75 mg Famotidine (Pepcid) 20 mg IVP DAILY [facility] Last Admin: 10/15/17 10:12 Dose: 20 mg Folic Acid (Folic Acid) 1 mg PO DAILY [facility] Last Admin: 10/15/17 10:12 Dose: 1 mg Sodium Chloride (Sodium Chloride 0.9%) 1,000 mls @ 100 mls/hr IV .Q10H [facility] Last Admin: 10/15/17 14:46 Dose: 100 mls/hr Heparin Sodium/Sodium Chloride (Heparin 82533 Units/250ml 1/2 Normal Saline) 25 ,000 units in 250 mls @ 16.084 mls/hr IV .[id number] PRN; Protocol; 18 UNITS/KG/HR PRN Reason: PROTOCOL Last Admin: 10/15/17 02:16 Dose: 18 units/kg/hr, 16.084 mls/hr Vancomycin/Sodium Chloride (Vancomycin 1 Gm/Ns 200 Ml) 1 gm in 200 mls @ 166.6 mls/hr IVPB Q12H [facility] PRN Reason: Protocol Stop: 10/20/17 02:01 Last Admin: 10/15/17 14:43 Dose: 166.6 mls/hr Piperacillin Sod/Tazobactam Sod (Zosyn 3.375 Gm Iv Premix) 3.375 gm in 50 mls @ 200 mls/hr IVPB Q8H [facility] PRN Reason: Protocol Last Admin: 10/15/17 13:20 Dose: 200 mls/hr Insulin Aspart (Novolog) 0 unit SC ACHS [facility] PRN Reason: Protocol Last Admin: 10/15/17 12:39 Dose: 3 unit Morphine Sulfate (Morphine) 2 mg IVP Q4 PRN PRN Reason: Pain, severe (8-10) Last Admin: 10/15/17 02:20 Dose: 2 mg Phenytoin Sodium (Dilantin) 100 mg PO TID [facility] Last Admin: 10/15/17 13:21 Dose: 100 mg Pneumococcal Polyvalent Vaccine (Pneumovax 23 Vaccine) 0.5 ml IM .ONCE ONE Stop: 10/16/17 10:01 Results - Vital Signs Recent Vital Signs: Last Vital Signs Temp 97.9 F 10/15/17 15:17 Pulse 79 10/15/17 15:17 Resp 20 10/15/17 15:17 BP 128/71 10/15/17 15:17 Pulse Ox 97 10/15/17 15:17 - Labs Result Diagrams: 10/15/17 08:24 10/15/17 08:24 Labs: Laboratory Results - last 24 hr 03/10/14/17 10/14/17 14:58 16:32 21:10 WBC RBC Hgb Hct MCV MCH MCHC RDW Plt Count MPV Neut % (Auto) Lymph % (Auto) [place] % (Auto) Eos % (Auto) Baso % (Auto) Neut # (Auto) Lymph # (Auto) [place] # (Auto) Eos # (Auto) Baso # (Auto) PT 15.3 H INR 1.4 APTT 30 Sodium Potassium Chloride Carbon Dioxide Anion Gap BUN Creatinine Est GFR ( Amer) Est GFR (Non-Af Amer) POC Glucose (mg/dL) 338 H Random Glucose Calcium Total Bilirubin AST ALT Alkaline Phosphatase Total Protein Albumin Globulin Albumin/Globulin Ratio Triglycerides Cholesterol LDL Cholesterol Direct HDL Cholesterol Blood Type A POSITIVE Blood Type Confirm A POSITIVE Antibody Screen Negative 10/15/17 10/15/17 10/15/17 07:54 08:24 08:24 WBC 9.7 RBC 3.16 L Hgb 8.4 L Hct 25.4 L MCV 80.6 L MCH 26.8 L MCHC 33.2 RDW 17.2 H Plt Count 370 MPV 8.5 Neut % (Auto) 68.2 Lymph % (Auto) 22.3 [place] % (Auto) 6.7 Eos % (Auto) 2.2 Baso % (Auto) 0.6 Neut # (Auto) 6.6 Lymph # (Auto) 2.2 [place] # (Auto) 0.6 Eos # (Auto) 0.2 Baso # (Auto) 0.1 PT INR APTT Sodium 139 Potassium 5.2 Chloride 105 Carbon Dioxide 22 Anion Gap 17 BUN 45 H Creatinine 1.5 H Est GFR ( Amer) 43 Est GFR (Non-Af Amer) 36 POC Glucose (mg/dL) 351 H Random Glucose 340 H Calcium 8.1 L Total Bilirubin 0.6 AST 25 ALT < 6 L Alkaline Phosphatase 173 H Total Protein 7.2 Albumin 3.3 L Globulin 3.9 Albumin/Globulin Ratio 0.8 L Triglycerides 182 H Cholesterol 191 LDL Cholesterol Direct 119 HDL Cholesterol 33 Blood Type Blood Type Confirm Antibody Screen 10/15/17 10/15/17 10/15/17 08:24 12:06 16:16 WBC RBC Hgb Hct MCV MCH MCHC RDW Plt Count MPV Neut % (Auto) Lymph % (Auto) [place] % (Auto) Eos % (Auto) Baso % (Auto) Neut # (Auto) Lymph # (Auto) [place] # (Auto) Eos # (Auto) Baso # (Auto) PT INR APTT 86 H D Sodium Potassium Chloride Carbon Dioxide Anion Gap BUN Creatinine Est GFR ( Amer) Est GFR (Non-Af Amer) POC Glucose (mg/dL) 266 H 245 H Random Glucose Calcium Total Bilirubin AST ALT Alkaline Phosphatase Total Protein Albumin Globulin Albumin/Globulin Ratio Triglycerides Cholesterol LDL Cholesterol Direct HDL Cholesterol Blood Type Blood Type Confirm Antibody Screen Attending/Attestation - Attestation I have personally seen and examined this patient.: Yes I have fully participated in the care of the patient.: Yes I have reviewed all pertinent clinical information: Yes Notes (Text): 10/15/17 16:18 57 year old female with toe gangrene, pvd, also with anemia, recent UGIB 2/2 PUD. Recommend transfusion and PPI. [place] [facility] [place]
[2017-10-15] MEDS ORDERED: Heparin25000 units/250ml 1/2NS 25,000 UNITS/250 ML BAG IV PRN (17:45)
--- NOTE | 2017-10-15 23:05 | CP.PCM.PN ---
Subjective - Date & Time of Evaluation Date of Evaluation: 10/15/17 Time of Evaluation: 08:15 - Subjective Subjective: Has some pain to left leg and big toe. Tolerated blood transfusion. Denies dizziness, headache, cp, sob, fever or chills Objective - Vital Signs/Intake and Output Vital Signs (last 24 hours): Temp Pulse Resp BP Pulse Ox 97.9 F 79 20 128/71 97 10/15/17 15:17 10/15/17 15:17 10/15/17 15:17 10/15/17 15:17 10/15/17 15:17 Intake and Output: 10/15/17 10/16/17 18:59 06:59 Intake Total 1400 1296.50 Balance 1400 1296.50 - Medications Medications: Current Medications Amlodipine Besylate (Norvasc) 10 mg PO DAILY [facility] Last Admin: 10/15/17 10:12 Dose: 10 mg Aspirin (Aspirin Chewable) 81 mg PO DAILY [facility] Last Admin: 10/15/17 10:12 Dose: 81 mg Clopidogrel Bisulfate (Plavix) 75 mg PO DAILY [facility] Last Admin: 10/15/17 10:12 Dose: 75 mg Famotidine (Pepcid) 20 mg IVP DAILY [facility] Last Admin: 10/15/17 10:12 Dose: 20 mg Folic Acid (Folic Acid) 1 mg PO DAILY [facility] Last Admin: 10/15/17 10:12 Dose: 1 mg Sodium Chloride (Sodium Chloride 0.9%) 1,000 mls @ 100 mls/hr IV .Q10H [facility] Last Admin: 10/15/17 14:46 Dose: 100 mls/hr Vancomycin/Sodium Chloride (Vancomycin 1 Gm/Ns 200 Ml) 1 gm in 200 mls @ 166.6 mls/hr IVPB Q12H [facility] PRN Reason: Protocol Stop: 10/20/17 02:01 Last Admin: 10/15/17 14:43 Dose: 166.6 mls/hr Piperacillin Sod/Tazobactam Sod (Zosyn 3.375 Gm Iv Premix) 3.375 gm in 50 mls @ 200 mls/hr IVPB Q8H [facility] PRN Reason: Protocol Last Admin: 10/15/17 21:14 Dose: 200 mls/hr Heparin Sodium/Sodium Chloride (Heparin 59810 Units/250ml 1/2 Normal Saline) 25 ,000 units in 250 mls @ 13.404 mls/hr IV .[id number] PRN; Protocol; 15 UNITS/KG/HR PRN Reason: PROTOCOL Last Admin: 10/15/17 17:45 Dose: 15 units/kg/hr, 13.404 mls/hr Insulin Aspart (Novolog) 0 unit SC ACHS [facility] PRN Reason: Protocol Last Admin: 10/15/17 21:18 Dose: Not Given Morphine Sulfate (Morphine) 2 mg IVP Q4 PRN PRN Reason: Pain, severe (8-10) Last Admin: 10/15/17 17:23 Dose: 2 mg Phenytoin Sodium (Dilantin) 100 mg PO TID [facility] Last Admin: 10/15/17 17:15 Dose: 100 mg Pneumococcal Polyvalent Vaccine (Pneumovax 23 Vaccine) 0.5 ml IM .ONCE ONE Stop: 10/16/17 10:01 - Labs Labs: 10/15/17 08:24 10/15/17 08:24 PT 15.3 SECONDS (9.7-12.2) H 10/14/17 16:32 INR 1.4 10/14/17 16:32 APTT 114 SECONDS (21-34) H* D 10/15/17 15:58 - Constitutional Appears: Well, No Acute Distress - Head Exam Head Exam: ATRAUMATIC, NORMOCEPHALIC - Respiratory Exam Respiratory Exam: Clear to Ausculation Bilateral, NORMAL BREATHING PATTERN - Cardiovascular Exam Cardiovascular Exam: REGULAR RHYTHM, +S1, +S2 - GI/Abdominal Exam GI & Abdominal Exam: Soft, Normal Bowel Sounds - Neurological Exam Neurological Exam: Alert, Oriented x3 - Psychiatric Exam Psychiatric exam: Normal Affect, Normal Mood - Skin Skin Exam: Normal Color, Warm Assessment and Plan (1) Anemia Status: Acute (2) Toe gangrene Status: Acute (3) CAD (coronary artery disease) Status: Chronic (4) Dyslipidemia Status: Chronic (5) PVD (peripheral vascular disease) Status: Chronic (6) Uncontrolled diabetes mellitus Status: Chronic - Assessment and Plan (Free Text) Assessment: 57 year old with toe gangrene and severe anemia Plan: Hemoglobin improved to 8.4 antibiotics - vanco/zosyn heparin drip hold coumadin vascular consult GI prophylaxis f/u wound blood cultures f/u echo GI/ID consults podiatry on board
[2017-10-16] MEDS: Sodium Chloride 0.9% 1,000 ML IV SCH ×4 (00:45→17:43)
[2017-10-16] MEDS: Vancomycin 1 gm/NS 200 ml 1 GM/200 ML BAG IVPB SCH ×2 (02:00→14:15)
[2017-10-16] MEDS: Piperacill/Tazo 3.375gm in Dex 3.375 GM/50 ML BAG IVPB SCH ×3 (05:00→21:08)
[2017-10-16 06:14] LABS: BASO % 0.3 % (0.0-2.0); EOS # 0.3 K/uL (0.0-0.7); EOS % 3.6 % (0.0-4.0); HEMOGLOBIN 7.2 g/dL (11.0-16.0); LYMPH # 1.9 K/uL (1.0-4.3); LYMPH % 21.4 % (20.0-40.0); MEAN CELL VOLUME 80.8 fL (81.0-99.0); MEAN CORPUSCULAR HEMOGLOBIN 26.8 pg (27.0-31.0); MEAN CORPUSCULAR HGB CONC 33.2 g/dL (33.0-37.0); MEAN PLATELET VOLUME 7.9 fL (7.2-11.7); MONO # 0.5 K/uL (0.0-0.8); MONO % 5.5 % (0.0-10.0); NEUT # 6.1 K/uL (1.8-7.0); NEUT % 69.2 % (50.0-75.0); RBC 2.69 Mil/uL (3.80-5.20); RED CELL DISTRIBUTION WIDTH 17.6 % (11.5-14.5); WHITE BLOOD COUNT 8.8 K/uL (4.8-10.8)
[2017-10-16] MEDS: Heparin25000 units/250ml 1/2NS 25,000 UNITS/250 ML BAG IV PRN (07:01)
[2017-10-16 07:51] LABS: CALCIUM 8.5 mg/dl (8.6-10.4)
[2017-10-16 07:52] LABS: ALB/GLOB RATIO 0.8 (1.0-2.1); ALBUMIN 2.9 g/dL (3.5-5.0)
--- NOTE | 2017-10-16 08:08 | CP.PCM.PN ---
<AliciamarkambikaValentino - Last Filed: 10/16/17 12:07> Subjective - Date & Time of Evaluation Date of Evaluation: 10/16/17 Time of Evaluation: 07:00 - Subjective Subjective: PGY5 GI Fellow Progress Note Patient seen and examined bedside this morning. The patient states that she continues to have significant pain in the left foot. Admits to recent EGD at [facility] which she was told she had a non-bleeding gastric ulcer. No overt bleeding per patient and nursing staff. No events overnight. 12 system ROS performed and negative except where stated. Objective - Vital Signs/Intake and Output Vital Signs (last 24 hours): Temp Pulse Resp BP Pulse Ox 98.2 F 83 20 100/62 97 10/15/17 23:32 10/15/17 23:32 10/15/17 23:32 10/15/17 23:32 10/15/17 23:32 Intake and Output: 10/16/17 10/16/17 06:59 18:59 Intake Total 2200.50 Balance 2200.50 - Medications Medications: Current Medications Amlodipine Besylate (Norvasc) 10 mg PO DAILY [facility] Last Admin: 10/15/17 10:12 Dose: 10 mg Aspirin (Aspirin Chewable) 81 mg PO DAILY [facility] Last Admin: 10/15/17 10:12 Dose: 81 mg Clopidogrel Bisulfate (Plavix) 75 mg PO DAILY [facility] Last Admin: 10/15/17 10:12 Dose: 75 mg Famotidine (Pepcid) 20 mg PO DAILY [facility] Folic Acid (Folic Acid) 1 mg PO DAILY [facility] Last Admin: 10/15/17 10:12 Dose: 1 mg Sodium Chloride (Sodium Chloride 0.9%) 1,000 mls @ 100 mls/hr IV .Q10H [facility] Last Admin: 10/16/17 06:59 Dose: 100 mls/hr Vancomycin/Sodium Chloride (Vancomycin 1 Gm/Ns 200 Ml) 1 gm in 200 mls @ 166.6 mls/hr IVPB Q12H [facility] PRN Reason: Protocol Stop: 10/20/17 02:01 Last Admin: 10/15/17 14:43 Dose: 166.6 mls/hr Piperacillin Sod/Tazobactam Sod (Zosyn 3.375 Gm Iv Premix) 3.375 gm in 50 mls @ 200 mls/hr IVPB Q8H [facility] PRN Reason: Protocol Last Admin: 10/15/17 21:14 Dose: 200 mls/hr Heparin Sodium/Sodium Chloride (Heparin 66098 Units/250ml 1/2 Normal Saline) 25 ,000 units in 250 mls @ 11.617 mls/hr IV .[id number] PRN; Protocol; 13 UNITS/KG/HR PRN Reason: PROTOCOL Last Admin: 10/16/17 07:01 Dose: 13 units/kg/hr, 11.617 mls/hr Insulin Aspart (Novolog) 0 unit SC ACHS [facility] PRN Reason: Protocol Last Admin: 10/15/17 21:18 Dose: Not Given Morphine Sulfate (Morphine) 2 mg IVP Q4 PRN PRN Reason: Pain, severe (8-10) Last Admin: 10/15/17 17:23 Dose: 2 mg Phenytoin Sodium (Dilantin) 100 mg PO TID [facility] Last Admin: 10/15/17 17:15 Dose: 100 mg Pneumococcal Polyvalent Vaccine (Pneumovax 23 Vaccine) 0.5 ml IM .ONCE ONE Stop: 10/16/17 10:01 - Labs Labs: 10/16/17 06:02 10/16/17 06:02 PT 15.3 SECONDS (9.7-12.2) H 10/14/17 16:32 INR 1.4 10/14/17 16:32 APTT 100 SECONDS (21-34) H* 10/16/17 06:02 - Constitutional Appears: Non-toxic, Other (left foot pain) - Eye Exam Eye Exam: EOMI, PERRL - ENT Exam ENT Exam: Mucous Membranes Moist - Respiratory Exam Respiratory Exam: Clear to Ausculation Bilateral. absent: Rales, Rhonchi, Wheezes - Cardiovascular Exam Cardiovascular Exam: RRR, +S1, +S2, Murmur (suspect ) - GI/Abdominal Exam GI & Abdominal Exam: Soft, Normal Bowel Sounds. absent: Distended, Firm, Guarding, Rigid, Tenderness, Organomegaly - Rectal Exam Rectal Exam: absent: Black Stool, Bloody Stool, Hemorrhoids Additional comments: dark brown, formed stool - Extremities Exam Extremities Exam: Normal Inspection. absent: Pedal Edema - Neurological Exam Neurological Exam: Alert, Awake, Oriented x3 - Psychiatric Exam Psychiatric exam: Normal Affect, Normal Mood - Skin Skin Exam: Dry, Warm Assessment and Plan - Assessment and Plan (Free Text) Assessment: Patient is a 57yo female with history of peripheral vascular disease and concern for left great toe gangrene, CAD, anemia who presented to the ED referred by her traffic worker for concern of osteomyelitis. Our service is consulted for anemia. -Chronic microcytic anemia -H/O PUD -CAD -PVD Plan: -No overt GI blood loss since admission; one bowel movement since admission without evidence of melena/hematochezia -Rectal examination today showing dark brown, formed stool -Patient must be on Heparin gtt and Plavix given PVD and risk of limb ischemia -Consider echocardiogram given pronounced murmur suspicious for -Check reticulocyte count, LDH, haptoglobin -Transfusion support, consider hematology evaluation -Protonix 40mg PO QD - discussed with pharmacy and will discontinue H2 erica -No plan for endoscopic evaluation at this time -Encourage outpatient follow up with GI physician at [facility] that patient has seen previously; would likely benefit from colonoscopy once acute issues resolve and patient can be safely off antiplatelet/anticoagulation <Srikanth Robison - Last Filed: 10/16/17 16:15> Objective - Vital Signs/Intake and Output Vital Signs (last 24 hours): Temp Pulse Resp BP Pulse Ox 98.1 F 90 20 155/81 H 97 10/16/17 08:00 10/16/17 08:00 10/16/17 08:00 10/16/17 08:00 10/16/17 08:00 Intake and Output: 10/16/17 10/16/17 06:59 18:59 Intake Total 2200.50 1472 Balance 2200.50 1472 - Medications Medications: Current Medications Amlodipine Besylate (Norvasc) 10 mg PO DAILY [facility] Last Admin: 10/16/17 10:06 Dose: 10 mg Aspirin (Aspirin Chewable) 81 mg PO DAILY [facility] Last Admin: 10/16/17 10:06 Dose: 81 mg Clopidogrel Bisulfate (Plavix) 75 mg PO DAILY [facility] Last Admin: 10/16/17 10:06 Dose: 75 mg Folic Acid (Folic Acid) 1 mg PO DAILY [facility] Last Admin: 10/16/17 10:06 Dose: 1 mg Sodium Chloride (Sodium Chloride 0.9%) 1,000 mls @ 100 mls/hr IV .Q10H [facility] Last Admin: 10/16/17 10:10 Dose: Not Given Vancomycin/Sodium Chloride (Vancomycin 1 Gm/Ns 200 Ml) 1 gm in 200 mls @ 166.6 mls/hr IVPB Q12H [facility] PRN Reason: Protocol Stop: 10/20/17 02:01 Last Admin: 10/16/17 14:15 Dose: 166.6 mls/hr Piperacillin Sod/Tazobactam Sod (Zosyn 3.375 Gm Iv Premix) 3.375 gm in 50 mls @ 200 mls/hr IVPB Q8H [facility] PRN Reason: Protocol Last Admin: 10/16/17 13:59 Dose: 200 mls/hr Heparin Sodium/Sodium Chloride (Heparin 44427 Units/250ml 1/2 Normal Saline) 25 ,000 units in 250 mls @ 11.617 mls/hr IV .[id number] PRN; Protocol; 13 UNITS/KG/HR PRN Reason: PROTOCOL Last Admin: 10/16/17 07:01 Dose: 13 units/kg/hr, 11.617 mls/hr Insulin Aspart (Novolog) 0 unit SC ACHS [facility] PRN Reason: Protocol Last Admin: 10/16/17 12:10 Dose: 4 unit Morphine Sulfate (Morphine) 2 mg IVP Q4 PRN PRN Reason: Pain, severe (8-10) Last Admin: 10/16/17 10:06 Dose: 2 mg Pantoprazole Sodium (Protonix Ec Tab) 40 mg PO DAILY [facility] Last Admin: 10/16/17 10:06 Dose: 40 mg Phenytoin Sodium (Dilantin) 100 mg PO TID [facility] Last Admin: 10/16/17 14:21 Dose: 100 mg - Labs Labs: 10/16/17 06:02 10/16/17 06:02 PT 15.3 SECONDS (9.7-12.2) H 10/14/17 16:32 INR 1.4 10/14/17 16:32 APTT 69 SECONDS (21-34) H D 10/16/17 13:09 Attending/Attestation - Attestation I have personally seen and examined this patient.: Yes I have fully participated in the care of the patient.: Yes I have reviewed all pertinent clinical information, including history, physical exam and plan: Yes Notes (Text): 10/16/17 16:12 This is a 57 year old female with history of peripheral vascular disease and concern for left great toe gangrene, CAD, anemia who presented to the ED referred by her traffic worker for concern of osteomyelitis. Our service is consulted for anemia. She was given 2 u PRBC to which she responded appropriately. She has history of microcytic anemia for which she has got iron infusions. No overt GI blood loss since admission; one bowel movement since admission without evidence of melena/hematochezia. Rectal examination today showing dark brown, formed stool. Risk of stopping anti platelet outweighs benefit. Will continue anti platelet as indicated. EGD done at [facility] 2-3 weeks ago was unremarkable. Can follow with GI for outpatient colonoscopy. To follow with outside railway signal electrician for anemia work up. PPi once daily. -No plan for endoscopic evaluation at this time -Encourage outpatient follow up with GI physician at [facility] that patient has seen previously; would likely benefit from colonoscopy once acute issues resolve and patient can be safely off antiplatelet/anticoagulation
[2017-10-16] MEDS: (Novolog) Insulin Aspart, Recombinant 100 u/ml 10 ml vial SC SCH ×4 (08:30→21:09)
--- NOTE | 2017-10-16 09:07 | CP.PCM.PN ---
Subjective - Date & Time of Evaluation Date of Evaluation: 10/16/17 Time of Evaluation: 08:00 - Subjective Subjective: Vascular Surgery: Dr. Cota Pt seen and examined. No acute overnight events. States she is feeling well and denies complaints at this time. Denies N/V, F/C. Objective - Vital Signs/Intake and Output Vital Signs (last 24 hours): Temp Pulse Resp BP Pulse Ox 98.1 F 90 20 155/81 H 97 10/16/17 08:00 10/16/17 08:00 10/16/17 08:00 10/16/17 08:00 10/16/17 08:00 Intake and Output: 10/16/17 10/16/17 06:59 18:59 Intake Total 2200.50 Balance 2200.50 - Medications Medications: Current Medications Amlodipine Besylate (Norvasc) 10 mg PO DAILY [facility] Last Admin: 10/15/17 10:12 Dose: 10 mg Aspirin (Aspirin Chewable) 81 mg PO DAILY [facility] Last Admin: 10/15/17 10:12 Dose: 81 mg Clopidogrel Bisulfate (Plavix) 75 mg PO DAILY [facility] Last Admin: 10/15/17 10:12 Dose: 75 mg Folic Acid (Folic Acid) 1 mg PO DAILY [facility] Last Admin: 10/15/17 10:12 Dose: 1 mg Sodium Chloride (Sodium Chloride 0.9%) 1,000 mls @ 100 mls/hr IV .Q10H [facility] Last Admin: 10/16/17 06:59 Dose: 100 mls/hr Vancomycin/Sodium Chloride (Vancomycin 1 Gm/Ns 200 Ml) 1 gm in 200 mls @ 166.6 mls/hr IVPB Q12H [facility] PRN Reason: Protocol Stop: 10/20/17 02:01 Last Admin: 10/15/17 14:43 Dose: 166.6 mls/hr Piperacillin Sod/Tazobactam Sod (Zosyn 3.375 Gm Iv Premix) 3.375 gm in 50 mls @ 200 mls/hr IVPB Q8H [facility] PRN Reason: Protocol Last Admin: 10/15/17 21:14 Dose: 200 mls/hr Heparin Sodium/Sodium Chloride (Heparin 33341 Units/250ml 1/2 Normal Saline) 25 ,000 units in 250 mls @ 11.617 mls/hr IV .[id number] PRN; Protocol; 13 UNITS/KG/HR PRN Reason: PROTOCOL Last Admin: 10/16/17 07:01 Dose: 13 units/kg/hr, 11.617 mls/hr Insulin Aspart (Novolog) 0 unit SC ACHS [facility] PRN Reason: Protocol Last Admin: 10/16/17 08:30 Dose: 3 unit Morphine Sulfate (Morphine) 2 mg IVP Q4 PRN PRN Reason: Pain, severe (8-10) Last Admin: 10/15/17 17:23 Dose: 2 mg Pantoprazole Sodium (Protonix Ec Tab) 40 mg PO DAILY [facility] Phenytoin Sodium (Dilantin) 100 mg PO TID [facility] Last Admin: 10/15/17 17:15 Dose: 100 mg Pneumococcal Polyvalent Vaccine (Pneumovax 23 Vaccine) 0.5 ml IM .ONCE ONE Stop: 10/16/17 10:01 - Labs Labs: 10/16/17 06:02 10/16/17 06:02 PT 15.3 SECONDS (9.7-12.2) H 10/14/17 16:32 INR 1.4 10/14/17 16:32 APTT 100 SECONDS (21-34) H* 10/16/17 06:02 - Constitutional Appears: Well, No Acute Distress - Head Exam Head Exam: ATRAUMATIC, NORMOCEPHALIC - Eye Exam Eye Exam: Normal appearance - ENT Exam ENT Exam: Mucous Membranes Moist - Respiratory Exam Respiratory Exam: NORMAL BREATHING PATTERN - Cardiovascular Exam Cardiovascular Exam: RRR - GI/Abdominal Exam GI & Abdominal Exam: Soft. absent: Tenderness - Extremities Exam Additional comments: LLE: dry gangrene L hallux, no palpable DP/PT - Neurological Exam Neurological Exam: Alert, Awake, Oriented x3 - Skin Skin Exam: Dry, Warm Assessment and Plan - Assessment and Plan (Free Text) Assessment: 57F with PVD & dry gangrene of L hallux Plan: - f/u CT angio - f/u JHOAN/PVRs - d/w Dr. Beata Lamb, PGY-3
[2017-10-16] MEDS ORDERED: Pneumococcal 23-Valent Vaccine IM ONE (10:00)
[2017-10-16] MEDS ORDERED: Influenza Vaccine 60 mcg/0.5 mL SYR (4YR UP) IM ONE (10:00)
[2017-10-16] MEDS: Pantoprazole 40 mg EC Tab PO SCH (10:06)
[2017-10-16] MEDS: Morphine 4 MG/ML VIAL IVP PRN ×2 (10:06→16:59)
--- NOTE | 2017-10-16 12:08 | CP.PCM.CON ---
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 Patient is seen resting comfortably in bed and in NAD. Patient reports that she was told to go to a vessel slag worker after a home visiting nurse from [place] told her to. She reports going to Dr. Hernández for the first time in which he removed her toenail in the office and instructed her to go to the hospital to get evaluated for vascular issues and possible bone infection. She reports she did not go to the hospital as instructed on because of recent of her brother. Patient appears to sad and in low spirits during visitation. Patient reports that her foot was more discolored in the past and underwent a revascularization about 2 weeks ago in which the toes has gotten "program associate" but the big toe remains the same. She reports pain to the left big toe, describes the pain as pin and needles, rating the pain 8/10 on VAS scale. Reports a constant pain that stays localized to the left big toe. She denies nausea, fever, chest pain, or chills. She reports she has the same shortness of breath. PMH: uncontrolled DM, HTN, HLD, PVD, anemia, heart disease -Patient had trouble recalling all medical issues PSH: heart surgery, s/p leg bypass x3, left stent placement 2 weeks ago ALL: NKDA MEDS: see SEP list SH: 30 year smoker, denies drinking or illicit drug use FH: mother- DM, HTN father-DM Review of Systems - Constitutional Constitutional: As Per HPI - EENT Eyes: absent: As Per HPI, Blind Spots, Blurred Vision, Change in Vision, Decreased Night Vision, Diplopia, Discharge, Dry Eye, Exophthalmos, Floaters, Irritation, Itchy Eyes, Loss of Peripheral Vision, Pain, Photophobia, Requires Corrective Lenses, Sees Flashes, Spots in Vision, Tunnel Vision, Other Visual Disturbances, Loss of Vision, Other Ears: absent: As Per HPI, Decreased Hearing, Ear Discharge, Ear Pain, Tinnitus, Abnormal Hearing, Disequilibrium, Dizziness, Other Nose/Mouth/Throat: absent: As Per HPI, Epistaxis, Nasal Congestion, Nasal Discharge, Nasal Obstruction, Nasal Trauma, Nose Pain, Post Nasal Drip, Sinus Pain, Sinus Pressure, Bleeding Gums, Change in Voice, Dental Pain, Dry Mouth, Dysphagia, Halitosis, Hoarsness, Lip Swelling, Mouth Lesions, Mouth Pain, Odynophagia, Sore Throat, Throat Swelling, Tongue Swelling, Facial Pain, Neck Pain, Neck Mass, Other - Breasts Breasts: absent: As Per HPI, Change in Shape, Mass, Pain, Nipple Discharge, Nipple Inversion, Skin Changes, Swelling, Other - Cardiovascular Cardiovascular: As Per HPI - Respiratory Respiratory: absent: As Per HPI, Cough, Dyspnea, Hemoptysis, Dyspnea on Exertion , Wheezing, Snoring, Stridor, Pain on Inspiration, Chest Congestion, Excessive Mucous Production, Change in Mucous Color, Pain with Coughing, Other - Gastrointestinal Gastrointestinal: absent: As Per HPI, Abdominal Pain, Belching, Bloating, Change in Bowel Habits, Change in Stool Character, Coffee Ground Emesis, Constipation, Cramping, Diarrhea, Dyspepsia, Dysphagia, Early Satiety, Excessive Flatus, Fecal Incontinence, Heartburn, Hematemesis, Hematochezia, Loose Stools, Melena, Nausea, Odynophagia, Temesmus, Vomiting, Other - Reproductive: Female Reproductive:Female: absent: As Per HPI, Amenorrhea, Amenorrhea/ Control, Currently Menstual, Cycle <21 Days, Cycle >35 Days, Cycle Variable, Menses 1-7 Days, Menses >/= 8 Days, Menses Variable, Cycle > 4 Weeks Between, No Menses for 6 Months, Heavy Menses, Light Menses, Normal Menses, Spotting Between Cycles , S/P Hysterectomy, Menopausal, Post Menopausal, Premenarche, Abnormal Vaginal Bleeding, Dysmenorrhea, Dyspareunia, Genital Lesions, Genital Pruritis, Pelvic Pain, Prolapse Symptoms, Sexual Dysfunction, Vaginal Discharge, Vaginal Dryness , Vaginal Odor, Vaginal Pruritis, Other - Menstruation Menstruation: absent: As Per HPI, Amenorrhea, Amenorrhea/ Control, Currently Menstual, Cycle <21 Days, Cycle >35 Days, Cycle Variable, Menses 1-7 Days, Menses >/= 8 Days, Menses Variable, Cycle > 4 Weeks Between, No Menses for 6 Months, Heavy Menses, Light Menses, Normal Menses, Spotting Between Cycles , S/P Hysterectomy, Menopausal, Post Menopausal, Premenarche, Abnormal Vaginal Bleeding, Dysmenorrhea, Other - Musculoskeletal Musculoskeletal: As Per HPI - Integumentary Integumentary: As Per HPI - Neurological Neurological: As Per HPI - Psychiatric Psychiatric: absent: As Per HPI, Abnormal Sleep Pattern, Anhedonia, Anxiety, Auditory Hallucinations, Behavioral Changes, Change in Appetite, Change in Libido, Confusion, Depression, Difficulty Concentrating, Hallucinations, Homicidal Ideation, Hopelessness, Irritability, Memory Loss, Mood Swings, Panic Attacks, Paranoia, Suicidal Ideation, Visual Hallucinations, Tactile Hallucinations, Other Past Patient History - Past Medical History & Family History Past Medical History?: Yes - Past Social History Smoking Status: Light Smoker < 10 Cigarettes Daily - CARDIAC Hx Hypercholesterolemia: Yes Hx Hypertension: Yes - PULMONARY Hx Respiratory Disorders: Yes Hx Asthma: Yes - NEUROLOGICAL Hx Neurological Disorder: Yes Hx Seizures: Yes - HEENT Hx HEENT Problems: No - RENAL Hx Chronic Kidney Disease: No - ENDOCRINE/METABOLIC Hx Diabetes Mellitus Type 2: Yes - HEMATOLOGICAL/ONCOLOGICAL Hx Blood Disorders: Yes Hx Anemia: Yes Hx Blood Transfusions: Yes Hx Bruising: Yes - INTEGUMENTARY Hx Dermatological Problems: No - MUSCULOSKELETAL/RHEUMATOLOGICAL Hx Falls: No - GASTROINTESTINAL Hx Constipation: Yes Hx Gastritis: Yes Hx Gastroesophageal Reflux: Yes - GENITOURINARY/GYNECOLOGICAL Hx Genitourinary Disorders: No - PSYCHIATRIC Hx Substance Use: No - SURGICAL HISTORY Hx Valve Replacement: Yes Other/Comment: left leg stent placement - ANESTHESIA Hx Anesthesia: Yes Hx Anesthesia Reactions: No Has any member of the family had a problem w/ anesthesia?: No Meds Allergies/Adverse Reactions: Allergies Allergy/AdvReac Type Severity Reaction Status Date / Time No Known Allergies Allergy Verified 10/14/17 12:13 - Medications Medications: Current Medications Amlodipine Besylate (Norvasc) 10 mg PO DAILY [facility] Last Admin: 10/16/17 10:06 Dose: 10 mg Aspirin (Aspirin Chewable) 81 mg PO DAILY [facility] Last Admin: 10/16/17 10:06 Dose: 81 mg Clopidogrel Bisulfate (Plavix) 75 mg PO DAILY [facility] Last Admin: 10/16/17 10:06 Dose: 75 mg Folic Acid (Folic Acid) 1 mg PO DAILY [facility] Last Admin: 10/16/17 10:06 Dose: 1 mg Sodium Chloride (Sodium Chloride 0.9%) 1,000 mls @ 100 mls/hr IV .Q10H [facility] Last Admin: 10/16/17 10:10 Dose: Not Given Vancomycin/Sodium Chloride (Vancomycin 1 Gm/Ns 200 Ml) 1 gm in 200 mls @ 166.6 mls/hr IVPB Q12H [facility] PRN Reason: Protocol Stop: 10/20/17 02:01 Last Admin: 10/15/17 14:43 Dose: 166.6 mls/hr Piperacillin Sod/Tazobactam Sod (Zosyn 3.375 Gm Iv Premix) 3.375 gm in 50 mls @ 200 mls/hr IVPB Q8H [facility] PRN Reason: Protocol Last Admin: 10/15/17 21:14 Dose: 200 mls/hr Heparin Sodium/Sodium Chloride (Heparin 29612 Units/250ml 1/2 Normal Saline) 25 ,000 units in 250 mls @ 11.617 mls/hr IV .[id number] PRN; Protocol; 13 UNITS/KG/HR PRN Reason: PROTOCOL Last Admin: 10/16/17 07:01 Dose: 13 units/kg/hr, 11.617 mls/hr Insulin Aspart (Novolog) 0 unit SC ACHS [facility] PRN Reason: Protocol Last Admin: 10/16/17 08:30 Dose: 3 unit Morphine Sulfate (Morphine) 2 mg IVP Q4 PRN PRN Reason: Pain, severe (8-10) Last Admin: 10/16/17 10:06 Dose: 2 mg Pantoprazole Sodium (Protonix Ec Tab) 40 mg PO DAILY [facility] Last Admin: 10/16/17 10:06 Dose: 40 mg Phenytoin Sodium (Dilantin) 100 mg PO TID [facility] Last Admin: 10/16/17 10:06 Dose: 100 mg Physical Exam - Constitutional Appears: Non-toxic, Chronically Ill - Head Exam Head Exam: NORMOCEPHALIC - Eye Exam Eye Exam: PERRL - ENT Exam ENT Exam: Mucous Membranes Dry - Neck Exam Neck exam: Negative for: Lymphadenopathy - Respiratory Exam Respiratory Exam: Decreased Breath Sounds - Cardiovascular Exam Cardiovascular Exam: REGULAR RHYTHM - GI/Abdominal Exam GI & Abdominal Exam: Diminished Bowel Sounds, Soft - Rectal Exam Rectal Exam: Deferred - Exam Exam: NORMAL INSPECTION - Extremities Exam Extremities exam: Positive for: pedal edema. Negative for: calf tenderness, tenderness Additional comments: weak pulse necrotic left great toe - Back Exam Back exam: absent: CVA tenderness (L), CVA tenderness (R) - Neurological Exam Neurological exam: Alert, CN II-XII Intact, Oriented x3, Reflexes Normal - Psychiatric Exam Psychiatric exam: Normal Mood Results - Vital Signs Recent Vital Signs: Last Vital Signs Temp 98.1 F 10/16/17 08:00 Pulse 90 10/16/17 08:00 Resp 20 10/16/17 08:00 BP 155/81 H 10/16/17 08:00 Pulse Ox 97 10/16/17 08:00 - Labs Result Diagrams: 10/16/17 06:02 10/16/17 06:02 Labs: Laboratory Results - last 24 hr 10/15/17 10/15/17 10/15/17 12:06 15:57 15:58 WBC RBC Hgb Hct MCV MCH MCHC RDW Plt Count MPV Neut % (Auto) Lymph % (Auto) Emmet % (Auto) Eos % (Auto) Baso % (Auto) Neut # (Auto) Lymph # (Auto) Emmet # (Auto) Eos # (Auto) Baso # (Auto) Retic Count Haptoglobin APTT 114 H* D Sodium Potassium Chloride Carbon Dioxide Anion Gap BUN Creatinine Est GFR ( Amer) Est GFR (Non-Af Amer) POC Glucose (mg/dL) 266 H Random Glucose Hemoglobin A1c Calcium Total Bilirubin AST ALT Alkaline Phosphatase Lactate Dehydrogenase Total Protein Albumin Globulin Albumin/Globulin Ratio Triglycerides Cholesterol LDL Cholesterol Direct HDL Cholesterol Stool Occult Blood Positive H 10/15/17 10/15/17 10/16/17 16:16 21:00 00:40 WBC RBC Hgb Hct MCV MCH MCHC RDW Plt Count MPV Neut % (Auto) Lymph % (Auto) Emmet % (Auto) Eos % (Auto) Baso % (Auto) Neut # (Auto) Lymph # (Auto) Emmet # (Auto) Eos # (Auto) Baso # (Auto) Retic Count Haptoglobin APTT 95 H D Sodium Potassium Chloride Carbon Dioxide Anion Gap BUN Creatinine Est GFR ( Amer) Est GFR (Non-Af Amer) POC Glucose (mg/dL) 245 H 174 H Random Glucose Hemoglobin A1c Calcium Total Bilirubin AST ALT Alkaline Phosphatase Lactate Dehydrogenase Total Protein Albumin Globulin Albumin/Globulin Ratio Triglycerides Cholesterol LDL Cholesterol Direct HDL Cholesterol Stool Occult Blood 10/16/17 10/16/17 10/16/17 06:02 06:02 06:02 WBC 8.8 RBC 2.69 L Hgb 7.2 L Hct 21.7 L MCV 80.8 L MCH 26.8 L MCHC 33.2 RDW 17.6 H Plt Count 330 MPV 7.9 Neut % (Auto) 69.2 Lymph % (Auto) 21.4 Emmet % (Auto) 5.5 Eos % (Auto) 3.6 Baso % (Auto) 0.3 Neut # (Auto) 6.1 Lymph # (Auto) 1.9 Emmet # (Auto) 0.5 Eos # (Auto) 0.3 Baso # (Auto) 0.0 Retic Count 5.6 H Haptoglobin APTT Sodium 138 Potassium 4.7 Chloride 108 H Carbon Dioxide 18 L Anion Gap 17 BUN 32 H Creatinine 1.4 H Est GFR ( Amer) 47 Est GFR (Non-Af Amer) 39 POC Glucose (mg/dL) Random Glucose 228 H Hemoglobin A1c 7.9 H Calcium 8.5 L Total Bilirubin 0.5 AST 27 ALT 8 L D Alkaline Phosphatase 147 H Lactate Dehydrogenase 806 H Total Protein 6.4 Albumin 2.9 L Globulin 3.5 Albumin/Globulin Ratio 0.8 L Triglycerides 142 D Cholesterol 168 LDL Cholesterol Direct 110 HDL Cholesterol 35 Stool Occult Blood 10/16/17 10/16/17 10/16/17 06:02 07:18 09:56 WBC RBC Hgb Hct MCV MCH MCHC RDW Plt Count MPV Neut % (Auto) Lymph % (Auto) Emmet % (Auto) Eos % (Auto) Baso % (Auto) Neut # (Auto) Lymph # (Auto) Emmet # (Auto) Eos # (Auto) Baso # (Auto) Retic Count Haptoglobin < 20.0 L APTT 100 H* Sodium Potassium Chloride Carbon Dioxide Anion Gap BUN Creatinine Est GFR ( Amer) Est GFR (Non-Af Amer) POC Glucose (mg/dL) 260 H Random Glucose Hemoglobin A1c Calcium Total Bilirubin AST ALT Alkaline Phosphatase Lactate Dehydrogenase Total Protein Albumin Globulin Albumin/Globulin Ratio Triglycerides Cholesterol LDL Cholesterol Direct HDL Cholesterol Stool Occult Blood 10/16/17 11:00 WBC RBC Hgb Hct MCV MCH MCHC RDW Plt Count MPV Neut % (Auto) Lymph % (Auto) Emmet % (Auto) Eos % (Auto) Baso % (Auto) Neut # (Auto) Lymph # (Auto) Emmet # (Auto) Eos # (Auto) Baso # (Auto) Retic Count Haptoglobin APTT Sodium Potassium Chloride Carbon Dioxide Anion Gap BUN Creatinine Est GFR ( Amer) Est GFR (Non-Af Amer) POC Glucose (mg/dL) 319 H Random Glucose Hemoglobin A1c Calcium Total Bilirubin AST ALT Alkaline Phosphatase Lactate Dehydrogenase Total Protein Albumin Globulin Albumin/Globulin Ratio Triglycerides Cholesterol LDL Cholesterol Direct HDL Cholesterol Stool Occult Blood Assessment & Plan (1) Anemia Status: Acute Priority: High (2) Toe gangrene Status: Acute Priority: High (3) CAD (coronary artery disease) Status: Chronic Priority: Low (4) Dyslipidemia Status: Chronic Priority: Low (5) PVD (peripheral vascular disease) Status: Chronic Priority: High (6) Uncontrolled diabetes mellitus Status: Chronic Priority: Medium - Assessment and Plan (Free Text) Assessment: poor prognosis await vascular eval cont iv rx
--- NOTE | 2017-10-16 13:59 | VASCLAB ---
STUDY DESCRIPTION: HISTORY: L 1st toe gangrene PRIORS: None. TECHNIQUE: Pulse volume recording waveforms and segmental pressures of bilateral lower extremities at multiple levels were obtained. Ankle Brachial Indices (ABIs) were calculated. Report prepared by TIGIST Mariano, RVT RIGHT LOWER EXTREMITY: * Brachial artery: Pressure - 173 mmHg. * High thigh: Pressure - mmHg: Ratio - : PVR waveform - Pulsatile * Low thigh: Pressure - mmHg: Ratio - PVR waveform: Pulsatile * Calf: Pressure - 149 mmHg: Ratio - 0.86 PVR waveform: Pulsatile * Posterior tibial Artery: Pressure - 220 mmHg: Ratio - NC PVR waveform: Pulsatile * Dorsalis pedis Artery: Pressure - 220 mmHg: Ratio - NC PVR waveform: Pulsatile * Great toe: Pressure - mmHg: Ratio - PVR waveform: Ankle brachial index (JHOAN): NC LEFT LOWER EXTREMITY: * Brachial artery: Pressure - 159 mmHg. * High thigh: Pressure - mmHg: Ratio - : PVR waveform - Pulsatile * Low thigh: Pressure - mmHg: Ratio - PVR waveform: Pulsatile * Calf: Pressure - 220 mmHg: Ratio - NC PVR waveform: Pulsatile * Posterior tibial Artery: Pressure - 220 mmHg: Ratio - NC PVR waveform: Pulsatile * Dorsalis pedis Artery: Pressure - 190 mmHg: Ratio - 1.10 PVR waveform: Pulsatile * Great toe: Pressure - mmHg: Ratio - PVR waveform: Ankle brachial index (JHOAN): NC OTHER FINDINGS: Right: Left: IMPRESSION: Right: The ankle pressure index of the right lower extremity is non-diagnostic due to possible arterial wall calcifications. However, metatarsal pulse volume recording waveform in suggestive of distal small artery diseases. Left: The ankle pressure index of the left lower extremity is non-diagnostic due to possible arterial wall calcifications.
--- NOTE | 2017-10-16 15:00 | CP.PCM.PN ---
Subjective - Date & Time of Evaluation Date of Evaluation: 10/16/17 Time of Evaluation: 11:15 - Subjective Subjective: Podiatry Progress Note- Dr. Travis Bhat 57 y.o female with PMH of uncontrolled DM, HTN, HLD, PVD, anemia, heart disease seen at bedside for gangrenous left 1st hallux with underlying OM. Pt is seeing resting comfortably in bed at time of visit. Pt reports pain to hallux is well- controlled. Denies f/n/v/c/sob/cp at this time. Objective - Vital Signs/Intake and Output Vital Signs (last 24 hours): Temp Pulse Resp BP Pulse Ox 98.1 F 90 20 155/81 H 97 10/16/17 08:00 10/16/17 08:00 10/16/17 08:00 10/16/17 08:00 10/16/17 08:00 Intake and Output: 10/16/17 10/16/17 06:59 18:59 Intake Total 2200.50 1472 Balance 2200.50 1472 - Medications Medications: Current Medications Amlodipine Besylate (Norvasc) 10 mg PO DAILY [facility] Last Admin: 10/16/17 10:06 Dose: 10 mg Aspirin (Aspirin Chewable) 81 mg PO DAILY [facility] Last Admin: 10/16/17 10:06 Dose: 81 mg Clopidogrel Bisulfate (Plavix) 75 mg PO DAILY [facility] Last Admin: 10/16/17 10:06 Dose: 75 mg Folic Acid (Folic Acid) 1 mg PO DAILY [facility] Last Admin: 10/16/17 10:06 Dose: 1 mg Sodium Chloride (Sodium Chloride 0.9%) 1,000 mls @ 100 mls/hr IV .Q10H [facility] Last Admin: 10/16/17 10:10 Dose: Not Given Vancomycin/Sodium Chloride (Vancomycin 1 Gm/Ns 200 Ml) 1 gm in 200 mls @ 166.6 mls/hr IVPB Q12H [facility] PRN Reason: Protocol Stop: 10/20/17 02:01 Last Admin: 10/16/17 14:15 Dose: 166.6 mls/hr Piperacillin Sod/Tazobactam Sod (Zosyn 3.375 Gm Iv Premix) 3.375 gm in 50 mls @ 200 mls/hr IVPB Q8H [facility] PRN Reason: Protocol Last Admin: 10/16/17 13:59 Dose: 200 mls/hr Heparin Sodium/Sodium Chloride (Heparin 80947 Units/250ml 1/2 Normal Saline) 25 ,000 units in 250 mls @ 11.617 mls/hr IV .[id number] PRN; Protocol; 13 UNITS/KG/HR PRN Reason: PROTOCOL Last Admin: 10/16/17 07:01 Dose: 13 units/kg/hr, 11.617 mls/hr Insulin Aspart (Novolog) 0 unit SC ACHS [facility] PRN Reason: Protocol Last Admin: 10/16/17 12:10 Dose: 4 unit Morphine Sulfate (Morphine) 2 mg IVP Q4 PRN PRN Reason: Pain, severe (8-10) Last Admin: 10/16/17 10:06 Dose: 2 mg Pantoprazole Sodium (Protonix Ec Tab) 40 mg PO DAILY [facility] Last Admin: 10/16/17 10:06 Dose: 40 mg Phenytoin Sodium (Dilantin) 100 mg PO TID [facility] Last Admin: 10/16/17 14:21 Dose: 100 mg - Labs Labs: 10/16/17 06:02 10/16/17 06:02 PT 15.3 SECONDS (9.7-12.2) H 10/14/17 16:32 INR 1.4 10/14/17 16:32 APTT 69 SECONDS (21-34) H D 10/16/17 13:09 - Constitutional Appears: Non-toxic, No Acute Distress - Extremities Exam Extremities Exam: absent: Calf Tenderness Additional comments: LLE focused: Vasc: DP and PT pulses are nonpalpable, skin temp runs cool to cool (proximal to distal) lower extremities cool to cool Ortho: slight pain with palpation to the left hallux and surrounding periwound, MM is 4/5 in all four compartments consistent with age Neuro: gross sensation intact bilaterally, protective sensation diminished Derm: Dry gangrene noted to the distal left hallux to the level of the IPJ with nail plate absent from nail bed, wound base is 100% necrotic and gangrenous, distal mummification with demaracting process noted, no active purulent drainage noted or expressed, no malodor, no appreciable erythema or streaking, no probe to bone, no tunneling, no undermining. No other grossly ischemic changes appreciated to b/l feet - Neurological Exam Neurological Exam: Alert, Awake Assessment and Plan - Assessment and Plan (Free Text) Assessment: 57 y.o female with PMH of uncontrolled DM, HTN, HLD, PVD, anemia, heart disease seen at bedside for gangrenous left 1st hallux with underlying OM Plan: Patient S/E at bedside Plan discussed with attending, Dr. Bhat Charts, labs, vitals reviewed: afebrile, no leukocytosis Continue IV abx as per ID Continue pain management and anticoagulation per primary team L foot xray: Mild cortical demineralization to distal tuft of distal phalanx of first digit 2/2 disuse vs. OM Wound cx: +MRSA f/u CT angio per vascular team Wound dressed with betadine, DSD No surgical intervention at this time Podiatry will follow
[2017-10-16] MEDS ORDERED: Iodixanol 320 mg/ml 150 ml Bottle IV ONE ×2 (15:30→16:32)
[2017-10-17] MEDS: Morphine 4 MG/ML VIAL IVP PRN ×3 (00:48→19:44)
[2017-10-17] MEDS: Vancomycin 1 gm/NS 200 ml 1 GM/200 ML BAG IVPB SCH ×2 (02:05→14:38)
[2017-10-17] MEDS: Piperacill/Tazo 3.375gm in Dex 3.375 GM/50 ML BAG IVPB SCH ×3 (05:01→21:23)
[2017-10-17] MEDS: Sodium Chloride 0.9% 1,000 ML IV SCH (06:15)
[2017-10-17 07:28] LABS: BASO # 0.1 K/uL (0.0-0.2); BASO % 0.6 % (0.0-2.0); EOS # 0.3 K/uL (0.0-0.7); LYMPH # 1.8 K/uL (1.0-4.3); LYMPH % 20.3 % (20.0-40.0); MEAN CELL VOLUME 81.8 fL (81.0-99.0); MEAN CORPUSCULAR HEMOGLOBIN 27.1 pg (27.0-31.0); MEAN CORPUSCULAR HGB CONC 33.1 g/dL (33.0-37.0); MEAN PLATELET VOLUME 8.1 fL (7.2-11.7); MONO # 0.5 K/uL (0.0-0.8); MONO % 5.7 % (0.0-10.0); NEUT # 6.2 K/uL (1.8-7.0); NEUT % 70.4 % (50.0-75.0); RBC 2.21 Mil/uL (3.80-5.20); RED CELL DISTRIBUTION WIDTH 17.8 % (11.5-14.5); WHITE BLOOD COUNT 8.8 K/uL (4.8-10.8)
[2017-10-17 07:51] LABS: ALB/GLOB RATIO 0.8 (1.0-2.1); ALBUMIN 2.9 g/dL (3.5-5.0); CALCIUM 8.4 mg/dl (8.6-10.4)
[2017-10-17] MEDS: (Novolog) Insulin Aspart, Recombinant 100 u/ml 10 ml vial SC SCH ×4 (08:15→22:06)
[2017-10-17] MEDS: Pantoprazole 40 mg EC Tab PO SCH (09:08)
--- NOTE | 2017-10-17 09:38 | CP.PCM.PN ---
Subjective - Date & Time of Evaluation Date of Evaluation: 10/17/17 Time of Evaluation: 06:50 - Subjective Subjective: Patient seen and examined this AM. Overnight left great toe had mild bleeding from wound but was controlled with pressure dressing adequately. Pt reports pain well controlled. Patient still unable to get CTA yesterday d/t elevated creatinine. Hgb this AM dropped to 6.0 from 7.2 yesterday with mild tachycardia Objective - Vital Signs/Intake and Output Vital Signs (last 24 hours): Temp Pulse Resp BP Pulse Ox 97.7 F 103 H 20 117/72 97 10/17/17 08:00 10/17/17 09:08 10/17/17 08:00 10/17/17 09:08 10/17/17 08:00 Intake and Output: 10/17/17 10/17/17 06:59 18:59 Intake Total 1092.8 Balance 1092.8 - Medications Medications: Current Medications Amlodipine Besylate (Norvasc) 10 mg PO DAILY [facility] Last Admin: 10/17/17 09:08 Dose: 10 mg Aspirin (Aspirin Chewable) 81 mg PO DAILY [facility] Last Admin: 10/17/17 09:08 Dose: 81 mg Clopidogrel Bisulfate (Plavix) 75 mg PO DAILY [facility] Last Admin: 10/17/17 09:09 Dose: 75 mg Folic Acid (Folic Acid) 1 mg PO DAILY [facility] Last Admin: 10/17/17 09:09 Dose: 1 mg Sodium Chloride (Sodium Chloride 0.9%) 1,000 mls @ 100 mls/hr IV .Q10H [facility] Last Admin: 10/17/17 06:15 Dose: 100 mls/hr Vancomycin/Sodium Chloride (Vancomycin 1 Gm/Ns 200 Ml) 1 gm in 200 mls @ 166.6 mls/hr IVPB Q12H [facility] PRN Reason: Protocol Stop: 10/20/17 02:01 Last Admin: 10/17/17 02:05 Dose: 166.6 mls/hr Piperacillin Sod/Tazobactam Sod (Zosyn 3.375 Gm Iv Premix) 3.375 gm in 50 mls @ 200 mls/hr IVPB Q8H [facility] PRN Reason: Protocol Last Admin: 10/17/17 05:01 Dose: 200 mls/hr Heparin Sodium/Sodium Chloride (Heparin 52284 Units/250ml 1/2 Normal Saline) 25 ,000 units in 250 mls @ 11.617 mls/hr IV .[id number] PRN; Protocol; 13 UNITS/KG/HR PRN Reason: PROTOCOL Last Admin: 10/16/17 07:01 Dose: 13 units/kg/hr, 11.617 mls/hr Insulin Aspart (Novolog) 0 unit SC ACHS [facility] PRN Reason: Protocol Last Admin: 10/17/17 08:15 Dose: 3 unit Morphine Sulfate (Morphine) 2 mg IVP Q4 PRN PRN Reason: Pain, severe (8-10) Last Admin: 10/17/17 08:15 Dose: 2 mg Pantoprazole Sodium (Protonix Ec Tab) 40 mg PO DAILY [facility] Last Admin: 10/17/17 09:08 Dose: 40 mg Phenytoin Sodium (Dilantin) 100 mg PO TID [facility] Last Admin: 10/17/17 09:09 Dose: 100 mg - Labs Labs: 10/17/17 07:07 10/17/17 07:07 PT 15.3 SECONDS (9.7-12.2) H 10/14/17 16:32 INR 1.4 10/14/17 16:32 APTT 83 SECONDS (21-34) H D 10/17/17 07:07 - Constitutional Appears: Well, Non-toxic, No Acute Distress - Head Exam Head Exam: ATRAUMATIC, NORMOCEPHALIC - Eye Exam Eye Exam: Normal appearance - ENT Exam ENT Exam: Mucous Membranes Moist - Respiratory Exam Respiratory Exam: NORMAL BREATHING PATTERN. absent: Accessory Muscle Use, Respiratory Distress - Cardiovascular Exam Cardiovascular Exam: RRR - Extremities Exam Extremities Exam: absent: Calf Tenderness, Pedal Edema Additional comments: left great toe with bandage C/D/I, no evidence of acute bleeding - Neurological Exam Neurological Exam: Alert, Awake, Oriented x3 - Psychiatric Exam Psychiatric exam: Normal Affect, Normal Mood - Skin Skin Exam: Dry, Normal Color, Warm Assessment and Plan - Assessment and Plan (Free Text) Assessment: 57F with chronic left great toe wound Plan: F/U results of the CTA today further surgical intervention pending results of CTA Continue IVF blood transfusion as needed per primary. Suggest hematology consult Hold plavix while patient is getting heparin Continue antibiotics per ID Discussed with Dr. Beata Tuttle PGY2
--- NOTE | 2017-10-17 12:02 | CP.PCM.PN ---
Subjective - Date & Time of Evaluation Date of Evaluation: 10/17/17 Time of Evaluation: 07:00 - Subjective Subjective: iv rx in progress + MRSA Hgb down- transfused Objective - Vital Signs/Intake and Output Vital Signs (last 24 hours): Temp Pulse Resp BP Pulse Ox 98.1 F 93 H 18 136/84 97 10/17/17 11:51 10/17/17 11:51 10/17/17 11:51 10/17/17 11:51 10/17/17 08:00 Intake and Output: 10/17/17 10/17/17 06:59 18:59 Intake Total 1092.8 0 Balance 1092.8 0 - Medications Medications: Current Medications Amlodipine Besylate (Norvasc) 10 mg PO DAILY [facility] Last Admin: 10/17/17 09:08 Dose: 10 mg Aspirin (Aspirin Chewable) 81 mg PO DAILY [facility] Last Admin: 10/17/17 09:08 Dose: 81 mg Clopidogrel Bisulfate (Plavix) 75 mg PO DAILY [facility] Last Admin: 10/17/17 09:09 Dose: 75 mg Folic Acid (Folic Acid) 1 mg PO DAILY [facility] Last Admin: 10/17/17 09:09 Dose: 1 mg Sodium Chloride (Sodium Chloride 0.9%) 1,000 mls @ 100 mls/hr IV .Q10H [facility] Last Admin: 10/17/17 06:15 Dose: 100 mls/hr Vancomycin/Sodium Chloride (Vancomycin 1 Gm/Ns 200 Ml) 1 gm in 200 mls @ 166.6 mls/hr IVPB Q12H [facility] PRN Reason: Protocol Stop: 10/20/17 02:01 Last Admin: 10/17/17 02:05 Dose: 166.6 mls/hr Piperacillin Sod/Tazobactam Sod (Zosyn 3.375 Gm Iv Premix) 3.375 gm in 50 mls @ 200 mls/hr IVPB Q8H [facility] PRN Reason: Protocol Last Admin: 10/17/17 12:00 Dose: Not Given Heparin Sodium/Sodium Chloride (Heparin 35553 Units/250ml 1/2 Normal Saline) 25 ,000 units in 250 mls @ 11.617 mls/hr IV .[id number] PRN; Protocol; 13 UNITS/KG/HR PRN Reason: PROTOCOL Last Admin: 10/16/17 07:01 Dose: 13 units/kg/hr, 11.617 mls/hr Insulin Aspart (Novolog) 0 unit SC ACHS [facility] PRN Reason: Protocol Last Admin: 10/17/17 11:59 Dose: 2 unit Morphine Sulfate (Morphine) 2 mg IVP Q4 PRN PRN Reason: Pain, severe (8-10) Last Admin: 10/17/17 08:15 Dose: 2 mg Pantoprazole Sodium (Protonix Ec Tab) 40 mg PO DAILY [facility] Last Admin: 10/17/17 09:08 Dose: 40 mg Phenytoin Sodium (Dilantin) 100 mg PO TID [facility] Last Admin: 10/17/17 09:09 Dose: 100 mg - Labs Labs: 10/17/17 07:07 10/17/17 07:07 PT 15.3 SECONDS (9.7-12.2) H 10/14/17 16:32 INR 1.4 10/14/17 16:32 APTT 83 SECONDS (21-34) H D 10/17/17 07:07 - Constitutional Appears: Non-toxic, Chronically Ill - Head Exam Head Exam: NORMOCEPHALIC - Eye Exam Eye Exam: PERRL. absent: Scleral icterus - ENT Exam ENT Exam: Mucous Membranes Dry - Neck Exam Neck Exam: absent: Lymphadenopathy - Respiratory Exam Respiratory Exam: Decreased Breath Sounds - Cardiovascular Exam Cardiovascular Exam: REGULAR RHYTHM - GI/Abdominal Exam GI & Abdominal Exam: Distended, Soft. absent: Tenderness - Rectal Exam Rectal Exam: Deferred - Exam Exam: NORMAL INSPECTION - Extremities Exam Extremities Exam: absent: Pedal Edema - Back Exam Back Exam: absent: CVA tenderness (L), CVA tenderness (R) - Neurological Exam Neurological Exam: Alert, Awake, Normal Gait - Psychiatric Exam Psychiatric exam: Depressed - Skin Skin Exam: Dry, Intact Assessment and Plan (1) Anemia Status: Acute (2) Toe gangrene Status: Acute (3) CAD (coronary artery disease) Status: Chronic (4) Dyslipidemia Status: Chronic (5) PVD (peripheral vascular disease) Status: Chronic (6) Uncontrolled diabetes mellitus Status: Chronic
--- NOTE | 2017-10-17 12:11 | CARD ---
APPROVED REPORT EXAM: Two-dimensional and M-mode echocardiogram with Doppler and color Doppler. Other Information Quality : GoodRhythm : INDICATION Murmur Congestive Heart Failure Mechanical Mitral and Aortic Valve replacements RISK FACTORS Diabetes 2D DIMENSIONS IVSd1.1 (0.7-1.1cm)LVDd4.7 (3.9-5.9cm) PWd1.7 (0.7-1.1cm)LVDs3.2 (2.5-4.0cm) FS (%) 32.6 %LVEF (%)61.0 (>50%) M-Mode DIMENSIONS Left Atrium (MM)4.41 (2.5-4.0cm)Aortic Root3.41 (2.2-3.7cm) Aortic Cusp Exc.1.57 (1.5-2.0cm) Aortic Valve AoV Peak Afvzkmnk046.1cm/sAoV VTI73.7cmAO Peak GR.63mmHg LVOT Peak Xhtptrmh432.6cm/Lai Mean GR.40mmHg Mitral Valve MV E Sffielfe013.9cm/sMV E Peak Gr.16mmHgMV A Rutyuuye168.1cm/s MV E Mean Gr.10mmHgMV YKL58jbL/A ratio0.7 MVA (PHT)4.25cm2 TDI E/Lateral E'0.0E/Medial E'0.0 Tricuspid Valve TR Peak Fdigkzen218ej/sTR Peak Gr.35mmHg LEFT VENTRICLE The left ventricle is normal size. There is mild to moderate concentric left ventricular hypertrophy. The left ventricular function is normal. The left ventricular ejection fraction is within the normal range. There is normal LV segmental wall motion. No left ventricle thrombus noted on this study. There is no ventricular septal defect visualized. There is no left ventricular aneurysm. There is no mass noted in the left ventricle. RIGHT VENTRICLE The right ventricle is normal size. There is normal right ventricular wall thickness. The right ventricular systolic function is normal. ATRIA The left atrium is mildly dilated. The right atrium size is normal. The interatrial septum is intact with no evidence for an atrial septal defect. AORTIC VALVE The aortic valve is PROSTHETIC AND APPEARS NORMAL. No aortic regurgitation is present. There is mild to moderate valvular aortic stenosis. There is no aortic valvular vegetation. MITRAL VALVE MV IS PROSTHETIC AND METALLIC . APPEARS NORMAL. There is no mitral valve regurgitation noted. TRICUSPID VALVE The tricuspid valve is normal in structure. PULMONIC VALVE The pulmonary valve is normal in structure. There is no pulmonic valvular regurgitation. GREAT VESSELS The aortic root displays mild sclerocalcific changes of the aortic root. The ascending aorta is normal in size. The IVC is normal in size and collapses >50% with inspiration. PERICARDIAL EFFUSION There is no pericardial effusion. <Conclusion> There is mild to moderate concentric left ventricular hypertrophy. The left ventricular function is normal. The left ventricular ejection fraction is within the normal range. The left atrium is mildly dilated. The aortic valve is PROSTHETIC AND APPEARS NORMAL. MV IS PROSTHETIC AND METALLIC . APPEARS NORMAL.
[2017-10-17] MEDS: Heparin25000 units/250ml 1/2NS 25,000 UNITS/250 ML BAG IV PRN (14:47)
--- NOTE | 2017-10-17 21:08 | CP.PCM.PN ---
Subjective - Date & Time of Evaluation Date of Evaluation: 10/17/17 Time of Evaluation: 15:00 - Subjective Subjective: Has little pain to left big toe, pain medication helping. Denies cp, sob, fever or chills Objective - Vital Signs/Intake and Output Vital Signs (last 24 hours): Temp Pulse Resp BP Pulse Ox 98.2 F 80 20 122/80 100 10/17/17 17:00 10/17/17 17:00 10/17/17 17:00 10/17/17 17:00 10/17/17 16:01 Intake and Output: 10/17/17 10/18/17 18:59 06:59 Intake Total 1242.8 Balance 1242.8 - Medications Medications: Current Medications Amlodipine Besylate (Norvasc) 10 mg PO DAILY [facility] Last Admin: 10/17/17 09:08 Dose: 10 mg Aspirin (Aspirin Chewable) 81 mg PO DAILY [facility] Last Admin: 10/17/17 09:08 Dose: 81 mg Clopidogrel Bisulfate (Plavix) 75 mg PO DAILY [facility] Last Admin: 10/17/17 09:09 Dose: 75 mg Folic Acid (Folic Acid) 1 mg PO DAILY [facility] Last Admin: 10/17/17 09:09 Dose: 1 mg Vancomycin/Sodium Chloride (Vancomycin 1 Gm/Ns 200 Ml) 1 gm in 200 mls @ 166.6 mls/hr IVPB Q12H [facility] PRN Reason: Protocol Stop: 10/20/17 02:01 Last Admin: 10/17/17 14:38 Dose: Not Given Heparin Sodium/Sodium Chloride (Heparin 68917 Units/250ml 1/2 Normal Saline) 25 ,000 units in 250 mls @ 11.617 mls/hr IV .[id number] PRN; Protocol; 13 UNITS/KG/HR PRN Reason: PROTOCOL Last Admin: 10/17/17 14:47 Dose: 13 units/kg/hr, 11.617 mls/hr Insulin Aspart (Novolog) 0 unit SC ACHS [facility] PRN Reason: Protocol Last Admin: 10/17/17 17:41 Dose: 3 unit Morphine Sulfate (Morphine) 2 mg IVP Q4 PRN PRN Reason: Pain, severe (8-10) Last Admin: 10/17/17 19:44 Dose: 2 mg Pantoprazole Sodium (Protonix Ec Tab) 40 mg PO DAILY [facility] Last Admin: 10/17/17 09:08 Dose: 40 mg Phenytoin Sodium (Dilantin) 100 mg PO TID [facility] Last Admin: 10/17/17 17:40 Dose: 100 mg - Labs Labs: 10/17/17 07:07 10/17/17 07:07 PT 15.3 SECONDS (9.7-12.2) H 10/14/17 16:32 INR 1.4 10/14/17 16:32 APTT 83 SECONDS (21-34) H D 10/17/17 07:07 - Constitutional Appears: Well, No Acute Distress - Head Exam Head Exam: ATRAUMATIC - Respiratory Exam Respiratory Exam: Clear to Ausculation Bilateral, NORMAL BREATHING PATTERN - Cardiovascular Exam Cardiovascular Exam: REGULAR RHYTHM, +S1, +S2 - GI/Abdominal Exam GI & Abdominal Exam: Soft, Normal Bowel Sounds - Neurological Exam Neurological Exam: Alert, Oriented x3 - Psychiatric Exam Psychiatric exam: Normal Affect, Normal Mood - Skin Skin Exam: Normal Color, Warm Assessment and Plan (1) Anemia Status: Acute (2) Toe gangrene Status: Acute (3) CAD (coronary artery disease) Status: Chronic (4) Dyslipidemia Status: Chronic (5) PVD (peripheral vascular disease) Status: Chronic (6) Uncontrolled diabetes mellitus Status: Chronic - Assessment and Plan (Free Text) Assessment: 57 year old with PVD, toe gangrene and severe anemia Plan: Hgb dropped to 6.0 today, transfuse 2 units prbc continue IV abx continue heparin drip f/u CTA GI prophylaxis f/u labs consults appreciated
[2017-10-18] MEDS ORDERED: Sodium Chloride 0.9% 1,000 ML IV SCH
[2017-10-18] MEDS: Vancomycin 1 gm/NS 200 ml 1 GM/200 ML BAG IVPB SCH (02:00)
[2017-10-18 08:15] LABS: BASO # 0.1 K/uL (0.0-0.2); BASO % 0.7 % (0.0-2.0); EOS # 0.3 K/uL (0.0-0.7); EOS % 3.1 % (0.0-4.0); HEMOGLOBIN 7.3 g/dL (11.0-16.0); LYMPH # 1.7 K/uL (1.0-4.3); LYMPH % 18.8 % (20.0-40.0); MEAN CELL VOLUME 82.9 fL (81.0-99.0); MEAN CORPUSCULAR HEMOGLOBIN 28.3 pg (27.0-31.0); MEAN CORPUSCULAR HGB CONC 34.1 g/dL (33.0-37.0); MEAN PLATELET VOLUME 8.3 fL (7.2-11.7); MONO # 0.5 K/uL (0.0-0.8); MONO % 5.6 % (0.0-10.0); NEUT # 6.5 K/uL (1.8-7.0); NEUT % 71.8 % (50.0-75.0); NRBC % 0.2 % (0.0-2.0); RBC 2.6 Mil/uL (3.80-5.20); RED CELL DISTRIBUTION WIDTH 17.4 % (11.5-14.5)
[2017-10-18] MEDS: (Novolog) Insulin Aspart, Recombinant 100 u/ml 10 ml vial SC SCH ×3 (08:26→18:45)
[2017-10-18 08:39] LABS: ALB/GLOB RATIO 0.9 (1.0-2.1); ALBUMIN 2.9 g/dL (3.5-5.0); ALT/SGPT 6 U/L (9-52); AST/SGOT 22 U/L (14-36); BLOOD UREA NITROGEN 19 mg/dL (7-17); CALCIUM 8.5 mg/dl (8.6-10.4); GFR AFRICAN-AMERICAN > 60; GFR NON-AFRICAN AMERICAN 57; HDL CHOLESTEROL 34 mg/dL (30-70)
[2017-10-18 08:49] LABS: LDL CHOLESTEROL 88 mg/dL (0-129)
[2017-10-18] MEDS: Pantoprazole 40 mg EC Tab PO SCH (09:23)
--- NOTE | 2017-10-18 09:57 | CT ---
PROCEDURE: CT Angiography Abdomen, Pelvis and Lower Extremity with Contrast HISTORY: L 1st toe gangrene COMPARISON: None. TECHNIQUE: Technique: CT angiography of the abdomen, pelvis and bilateral lower extremities performed in the arterial phase of enhancement. Coronal and sagittal reformats, and well as rotating MIP images of the vessels generated at the workstation. Intravenous contrast dose: 150 mL Visipaque 320 Radiation dose: Total exam DLP = 2849.1 mGy-cm. This CT exam was performed using one or more of the following dose reduction techniques: Automated exposure control, adjustment of the mA and/or kV according to patient size, and/or use of iterative reconstruction technique. FINDINGS: CT ANGIOGRAPHY: ABDOMINAL AORTA:: No stenosis or aneurysm. MAJOR AORTIC BRANCHES: Celiac Eros: Unremarkable. Superior mesenteric artery: Unremarkable. Inferior mesenteric artery: Unremarkable. Renal arteries: Unremarkable. PELVIC ARTERIES: Right Common Iliac: Unremarkable. Right External Iliac: Unremarkable. Right Internal Iliac: Unremarkable. Left Common Iliac: Unremarkable. Left External Iliac: Unremarkable. Left Internal Iliac: Unremarkable. RIGHT LOWER EXTREMITY ARTERIES: Right Common Femoral: Unremarkable. Right Superficial Femoral: Short segment proximal moderate stenosis. Long segment severe stenosis at the mid/ distal portion proximal to and within the indwelling stent. Right Profunda Femoris: Unremarkable. Right Popliteal:Mild tandem stenoses. Right Anterior Tibial: Difficult to evaluate due to heavy arterial wall calcification. Right Tibioperoneal Trunk: Difficult to evaluate due to heavy arterial wall calcification. Right Posterior Tibial: Difficult to evaluate due to heavy arterial wall calcification. Right Peroneal: Difficult to evaluate due to heavy arterial wall calcification. Right dorsalis pedis : Difficult to evaluate due to heavy arterial wall calcification. LEFT LOWER EXTREMITY ARTERIES: Left Common Femoral: Unremarkable. Left Superficial Femoral: Short segment proximal moderate stenosis. Mild tandem stenoses. Patent mid/distal stent. Left Profunda Femoris: Unremarkable. Left Popliteal: Mild tandem stenoses. Left Anterior Tibial: Difficult to evaluate due to heavy arterial wall calcification. Left Tibioperoneal Trunk: Unremarkable. Left Posterior Tibial: Unremarkable. Left Peroneal: Difficult to evaluate due to heavy arterial wall calcification. Left Dorsalis pedis: Difficult to evaluate due to heavy arterial wall calcification. NON-ANGIOGRAPHIC ASPECT OF THE EXAM: LOWER THORAX: Bibasilar atelectasis/ scarring. Cardiomegaly. Aortic and mitral prosthetic valves. LIVER: Unremarkable. No gross lesion or ductal dilatation. GALLBLADDER AND BILE DUCTS: Unremarkable. PANCREAS: Unremarkable. No gross lesion or ductal dilatation. SPLEEN: Unremarkable. ADRENALS: Unremarkable. No mass. KIDNEYS AND URETERS: Unremarkable. No hydronephrosis. No solid mass. STOMACH AND BOWEL: Unremarkable. No obstruction. No gross mural thickening. APPENDIX: Normal appendix. PERITONEUM: Bilateral fat containing inguinal hernias. No free fluid. No free air. LYMPH NODES: Unremarkable. No enlarged lymph nodes. BLADDER: Unremarkable. REPRODUCTIVE: Calcified uterine fibroids. BONES: No acute fracture. OTHER FINDINGS: Left foot 1st digit distal soft tissue defect. IMPRESSION: Right lower extremity: Short-segment moderate stenosis of the proximal superficial femoral artery with long segment severe stenosis of the mid/distal superficial femoral artery proximal to within the indwelling mid/distal superficial femoral artery stent. Mild tandem stenosis the right popliteal artery. Markedly limited evaluation of the hvgmm-hxp-bohp arteries due to heavy arterial wall calcification. Left lower extremity: Short segment moderate stenosis of the proximal superficial femoral artery. Patent indwelling mid/ distal superficial femoral artery stent. Mild tandem stenoses of the superficial femoral and popliteal artery. Patent left posterior tibial artery. Markedly limited evaluation of the anterior tibial and peroneal arteries to heavy arterial wall calcification. Left foot 1st digit distal soft tissue defect. Additional findings as above.
[2017-10-18] MEDS ORDERED: Vancomycin 1 gm/NS 200 ml 1 GM/200 ML BAG IVPB SCH (10:00)
[2017-10-18] MEDS ORDERED: Piperacillin/Tazobact 3.375 GM in Sodium Chloride 100 ML IVPB SCH (10:00)
--- NOTE | 2017-10-18 11:08 | CP.PCM.PN ---
Subjective - Date & Time of Evaluation Date of Evaluation: 10/18/17 Time of Evaluation: 09:00 - Subjective Subjective: Podiatry Progress Note- Dr. Bhat 57 yo female with PMH of uncontrolled DM, HTN, HLD, PVD, anemia, heart disease seen at bedside for gangrenous left 1st hallux with underlying OM.Pt is seen resting comfortably in bed at time of visit, reports minimal pain to the foot today. Denies f/n/v/c/sob/cp at this time. Objective - Vital Signs/Intake and Output Vital Signs (last 24 hours): Temp Pulse Resp BP Pulse Ox 98.1 F 88 20 99/62 L 96 10/18/17 08:00 10/18/17 08:00 10/18/17 08:00 10/18/17 08:00 10/18/17 08:00 Intake and Output: 10/18/17 10/18/17 06:59 18:59 Intake Total 1417.8 Balance 1417.8 - Medications Medications: Current Medications Amlodipine Besylate (Norvasc) 10 mg PO DAILY [facility] Last Admin: 10/18/17 09:28 Dose: Not Given Aspirin (Aspirin Chewable) 81 mg PO DAILY [facility] Last Admin: 10/17/17 09:08 Dose: 81 mg Clopidogrel Bisulfate (Plavix) 75 mg PO DAILY [facility] Last Admin: 10/17/17 09:09 Dose: 75 mg Folic Acid (Folic Acid) 1 mg PO DAILY [facility] Last Admin: 10/18/17 09:23 Dose: 1 mg Heparin Sodium/Sodium Chloride (Heparin 36309 Units/250ml 1/2 Normal Saline) 25 ,000 units in 250 mls @ 11.617 mls/hr IV .[id number] PRN; Protocol; 13 UNITS/KG/HR PRN Reason: PROTOCOL Last Admin: 10/17/17 14:47 Dose: 13 units/kg/hr, 11.617 mls/hr Piperacillin Sod/Tazobactam (Sod 3.375 gm/ Sodium Chloride) 100 mls @ 200 mls/ hr IVPB Q8H [facility] PRN Reason: Protocol Vancomycin/Sodium Chloride (Vancomycin 1 Gm/Ns 200 Ml) 1 gm in 200 mls @ 166.7 mls/hr IVPB Q24H [facility] PRN Reason: Protocol Stop: 10/23/17 10:01 Insulin Aspart (Novolog) 0 unit SC ACHS [facility] PRN Reason: Protocol Morphine Sulfate (Morphine) 2 mg IVP Q4 PRN PRN Reason: Pain, severe (8-10) Last Admin: 10/17/17 19:44 Dose: 2 mg Pantoprazole Sodium (Protonix Ec Tab) 40 mg PO DAILY [facility] Last Admin: 10/18/17 09:23 Dose: 40 mg Phenytoin Sodium (Dilantin) 100 mg PO TID [facility] Last Admin: 10/18/17 09:22 Dose: 100 mg - Labs Labs: 10/18/17 08:07 10/18/17 08:07 PT 15.3 SECONDS (9.7-12.2) H 10/14/17 16:32 INR 1.4 10/14/17 16:32 APTT 60 SECONDS (21-34) H D 10/18/17 08:07 - Constitutional Appears: Non-toxic, No Acute Distress - Extremities Exam Extremities Exam: absent: Calf Tenderness Additional comments: LLE focused: dressed to left foot is c/d/i Vasc: DP and PT pulses are nonpalpable, skin temp runs cool to cool (proximal to distal) lower extremities cool to cool Ortho: slight pain with palpation to the left hallux and surrounding periwound, MM is 4/5 in all four compartments consistent with age Neuro: gross sensation intact bilaterally, protective sensation diminished Derm: Dry gangrene noted to the distal left hallux to the level of the IPJ with nail plate absent from nail bed, wound base is 100% necrotic and gangrenous, distal mummification with demarcating process noted, no active purulent drainage noted or expressed, no malodor, no appreciable erythema or streaking, no probe to bone, no tunneling, no undermining. No other grossly ischemic changes appreciated to b/l feet - Neurological Exam Neurological Exam: Alert, Awake - Psychiatric Exam Psychiatric exam: Normal Affect, Normal Mood Assessment and Plan - Assessment and Plan (Free Text) Assessment: 57 y.o female with PMH of uncontrolled DM, HTN, HLD, PVD, anemia, heart disease seen at bedside for gangrenous left 1st hallux with underlying OM Plan: Patient S/E at bedside Plan discussed with attending, Dr. Bhat Charts, labs, vitals reviewed: afebrile, no leukocytosis c/w IV abx pain mx per primary team L foot xray: Mild cortical demineralization to distal tuft of distal phalanx of first digit 2/2 disuse vs. OM Wound cx: +MRSA CT angio: -Right- short segment moderate stenosis prox SFA w/ long segment severe stenosis of the mid/distal SFA stent. Mild tandem stenosis of right popliteal. Markedly limited evaluation of below knee arteries due to heavy arterial wall calcification -Left- short segment moderate stenosis of prox SFA. Patent indwelling mid/ distal SFA stent. Mild tandem stenoses of the superficial femoral and popliteal artery. Markedly limited eval of anterior tibial and peroneal arteries due to heavy arterial wall calcification f/u vascular plan left hallux dressed with betadine + DSD Podiatry will follow
[2017-10-18] MEDS: Morphine 4 MG/ML VIAL IVP PRN (11:31)
[2017-10-18] MEDS: Heparin25000 units/250ml 1/2NS 25,000 UNITS/250 ML BAG IV PRN (11:50)
[2017-10-18] MEDS ORDERED: Pantoprazole 80 MG in Sodium Chloride 0.9% 100 ML IVP SCH (15:30)
[2017-10-18] MEDS ORDERED: Pantoprazole 80 MG in Sodium Chloride 0.9% 100 ML IVP ONE (15:45)
--- NOTE | 2017-10-18 16:00 | CP.PCM.PN ---
Subjective - Date & Time of Evaluation Date of Evaluation: 10/18/17 Time of Evaluation: 11:00 - Subjective Subjective: Vascular Surgery: Dr. Cota Pt seen and examined. No acute overnight events. Pt did however have multiple episodes of bloody BMs. States her left big toe feels better. Denies N/V, F/C. Objective - Vital Signs/Intake and Output Vital Signs (last 24 hours): Temp Pulse Resp BP Pulse Ox 98.5 F 92 H 18 128/71 95 10/18/17 15:52 10/18/17 15:52 10/18/17 15:52 10/18/17 15:52 10/18/17 14:52 Intake and Output: 10/18/17 10/18/17 06:59 18:59 Intake Total 1417.8 1122.8 Balance 1417.8 1122.8 - Medications Medications: Current Medications Amlodipine Besylate (Norvasc) 10 mg PO DAILY [facility] Last Admin: 10/18/17 09:28 Dose: Not Given Aspirin (Aspirin Chewable) 81 mg PO DAILY [facility] Last Admin: 10/17/17 09:08 Dose: 81 mg Clopidogrel Bisulfate (Plavix) 75 mg PO DAILY [facility] Last Admin: 10/17/17 09:09 Dose: 75 mg Folic Acid (Folic Acid) 1 mg PO DAILY [facility] Last Admin: 10/18/17 09:23 Dose: 1 mg Piperacillin Sod/Tazobactam (Sod 3.375 gm/ Sodium Chloride) 100 mls @ 200 mls/ hr IVPB Q8H [facility] PRN Reason: Protocol Last Admin: 10/18/17 10:00 Dose: 200 mls/hr Vancomycin/Sodium Chloride (Vancomycin 1 Gm/Ns 200 Ml) 1 gm in 200 mls @ 166.7 mls/hr IVPB Q24H [facility] PRN Reason: Protocol Stop: 10/23/17 10:01 Last Admin: 10/18/17 11:00 Dose: 166.7 mls/hr Pantoprazole Sodium 80 mg/ (Sodium Chloride) 100 mls @ 10 mls/hr IVP .Q10H [facility] PRN Reason: 8 MG/HR Insulin Aspart (Novolog) 0 unit SC ACHS [facility] PRN Reason: Protocol Last Admin: 10/18/17 12:30 Dose: 6 unit Morphine Sulfate (Morphine) 2 mg IVP Q4 PRN PRN Reason: Pain, severe (8-10) Last Admin: 10/18/17 11:31 Dose: 2 mg Phenytoin Sodium (Dilantin) 100 mg PO TID [facility] Last Admin: 10/18/17 13:46 Dose: 100 mg - Labs Labs: 10/18/17 08:07 10/18/17 08:07 PT 15.3 SECONDS (9.7-12.2) H 10/14/17 16:32 INR 1.4 10/14/17 16:32 APTT 60 SECONDS (21-34) H D 10/18/17 08:07 - Constitutional Appears: No Acute Distress - Head Exam Head Exam: ATRAUMATIC, NORMOCEPHALIC - Eye Exam Eye Exam: Normal appearance - ENT Exam ENT Exam: Mucous Membranes Moist - Respiratory Exam Respiratory Exam: NORMAL BREATHING PATTERN - Cardiovascular Exam Cardiovascular Exam: RRR - GI/Abdominal Exam GI & Abdominal Exam: Soft. absent: Tenderness - Extremities Exam Additional comments: LLE: 2+ PT, hallux with dry gangrene RLE: non palpable DP/PT - Neurological Exam Neurological Exam: Alert, Awake - Skin Skin Exam: Dry, Warm Assessment and Plan - Assessment and Plan (Free Text) Assessment: 57F with L hallux gangrene Plan: - no surgical intervention at this time - will consider angio once pt is more stable in regards to GI bleed - hallux wound management per podiatry - d/w Dr. Beata Lamb, PGY-3
[2017-10-18] MEDS ORDERED: Succinylcholine Chloride 20 mg/ml Syr (5 ml) IV ONE (16:51)
[2017-10-18] MEDS ORDERED: Etomidate 20 mg/10ml Inj IV ONE (16:51)
[2017-10-18] MEDS ORDERED: Propofol 10 mg/ml Inj (20 ML) ONE (17:31)
[2017-10-18] MEDS ORDERED: Esmolol 100 mg/10ml Inj IV ONE (17:37)
[2017-10-18] MEDS ORDERED: Peg-Electrolyte Oral Soln 4L (Golytely) PO ONE (17:44)
[2017-10-18] MEDS ORDERED: Phenylephrine 10 mg/ml Inj ONE (17:48)
--- NOTE | 2017-10-18 17:56 | CP.PCM.PN ---
Subjective - Date & Time of Evaluation Date of Evaluation: 10/18/17 Time of Evaluation: 05:00 - Subjective Subjective: 57 yo female with PMH of uncontrolled DM, HTN, HLD, PVD, anemia, heart disease seen at bedside for gangrenous left 1st hallux with underlying OM events noted will hold chris garcia Objective - Vital Signs/Intake and Output Vital Signs (last 24 hours): Temp Pulse Resp BP Pulse Ox 98.6 F 93 H 18 131/57 L 97 10/18/17 17:22 10/18/17 17:22 10/18/17 17:22 10/18/17 17:22 10/18/17 17:22 Intake and Output: 10/18/17 10/18/17 06:59 18:59 Intake Total 1417.8 1222.8 Balance 1417.8 1222.8 - Medications Medications: Current Medications Amlodipine Besylate (Norvasc) 10 mg PO DAILY [facility] Last Admin: 10/18/17 09:28 Dose: Not Given Aspirin (Aspirin Chewable) 81 mg PO DAILY [facility] Last Admin: 10/17/17 09:08 Dose: 81 mg Clopidogrel Bisulfate (Plavix) 75 mg PO DAILY [facility] Last Admin: 10/17/17 09:09 Dose: 75 mg Folic Acid (Folic Acid) 1 mg PO DAILY [facility] Last Admin: 10/18/17 09:23 Dose: 1 mg Piperacillin Sod/Tazobactam (Sod 3.375 gm/ Sodium Chloride) 100 mls @ 200 mls/ hr IVPB Q8H [facility] PRN Reason: Protocol Last Admin: 10/18/17 10:00 Dose: 200 mls/hr Vancomycin/Sodium Chloride (Vancomycin 1 Gm/Ns 200 Ml) 1 gm in 200 mls @ 166.7 mls/hr IVPB Q24H [facility] PRN Reason: Protocol Stop: 10/23/17 10:01 Last Admin: 10/18/17 11:00 Dose: 166.7 mls/hr Pantoprazole Sodium 80 mg/ (Sodium Chloride) 100 mls @ 10 mls/hr IVP .Q10H [facility] PRN Reason: 8 MG/HR Insulin Aspart (Novolog) 0 unit SC ACHS [facility] PRN Reason: Protocol Last Admin: 10/18/17 12:30 Dose: 6 unit Morphine Sulfate (Morphine) 2 mg IVP Q4 PRN PRN Reason: Pain, severe (8-10) Last Admin: 10/18/17 11:31 Dose: 2 mg Phenytoin Sodium (Dilantin) 100 mg PO TID [facility] Last Admin: 10/18/17 13:46 Dose: 100 mg - Labs Labs: 10/18/17 08:07 10/18/17 08:07 PT 15.3 SECONDS (9.7-12.2) H 10/14/17 16:32 INR 1.4 10/14/17 16:32 APTT 60 SECONDS (21-34) H D 10/18/17 08:07 - Constitutional Appears: Non-toxic, Chronically Ill - Head Exam Head Exam: NORMOCEPHALIC - Eye Exam Eye Exam: PERRL - ENT Exam ENT Exam: Mucous Membranes Dry - Neck Exam Neck Exam: absent: Lymphadenopathy - Respiratory Exam Respiratory Exam: Decreased Breath Sounds - Cardiovascular Exam Cardiovascular Exam: REGULAR RHYTHM - GI/Abdominal Exam GI & Abdominal Exam: Distended - Rectal Exam Rectal Exam: Deferred - Exam Exam: NORMAL INSPECTION - Extremities Exam Extremities Exam: Pedal Edema, Tenderness - Back Exam Back Exam: absent: CVA tenderness (L), CVA tenderness (R) Assessment and Plan (1) Anemia Status: Acute (2) Toe gangrene Status: Acute (3) CAD (coronary artery disease) Status: Chronic (4) Dyslipidemia Status: Chronic (5) PVD (peripheral vascular disease) Status: Chronic (6) Uncontrolled diabetes mellitus Status: Chronic - Assessment and Plan (Free Text) Assessment: 57 yo female with PMH of uncontrolled DM, HTN, HLD, PVD, anemia, heart disease seen at bedside for gangrenous left 1st hallux with underlying OM
[2017-10-18] MEDS ORDERED: Sodium Chloride 0.9% 100 ML IV ONE (18:07)
--- NOTE | 2017-10-18 20:18 | CP.PCM.CON ---
History of Present Illness - History of Present Illness History of Present Illness: A 57 year old female with pmhx of DM, chronic smoker, HTN, dyslipidemia, asthma , with mechanical mitral and Aortic valves,anemia,GI bleed,siezure disorder, severe PVD s/p multiple lower extremity angioplasties sent to Er with gangrenous toe. In the ED, the patient was noted to be severely anemic with a hgb of 6.6. The patient states that she had a recent GI work up in [place] where they found non-bleeding ulcers. patient was oh IV heparin until about noon time today,had EGD done after which she had dark stools and blood( as per PACU staff). EGD revealed multiple non bleeding linear gastric ulcers and duodenal erosions.She received 1 unit PRBC in PACU.last Hb this am was 7.3 patient denies chest pain,palpitations ,dizziness,shortness of breath Review of Systems - Constitutional Constitutional: absent: Anorexia, Chills, Malaise - EENT Eyes: absent: Blurred Vision, Decreased Night Vision Ears: absent: Dizziness Nose/Mouth/Throat: absent: Sore Throat, Neck Pain - Cardiovascular Cardiovascular: Claudication. absent: Chest Pain, Palpitations Additional comments: left 1st toe ulcer.Effort tolerance about 3-4 blocks,limited by leg pain - Respiratory Respiratory: absent: Cough, Dyspnea, Hemoptysis - Gastrointestinal Gastrointestinal: absent: Abdominal Pain, Change in Stool Character, Coffee Ground Emesis, Nausea, Vomiting Additional comments: patient not aware of mamta today - Genitourinary Genitourinary: absent: Dysuria, Hematuria - Musculoskeletal Musculoskeletal: absent: Back Pain - Integumentary Integumentary: absent: Bleeding Lesions, Rash - Neurological Neurological: absent: Dizziness - Hematologic/Lymphatic Hematologic: absent: Easy Bleeding Past Patient History - Past Medical History & Family History Past Medical History?: Yes - Past Social History Smoking Status: Light Smoker < 10 Cigarettes Daily - CARDIAC Hx Hypercholesterolemia: Yes Hx Hypertension: Yes - PULMONARY Hx Respiratory Disorders: Yes Hx Asthma: Yes - NEUROLOGICAL Hx Neurological Disorder: Yes Hx Seizures: Yes - HEENT Hx HEENT Problems: No - RENAL Hx Chronic Kidney Disease: No - ENDOCRINE/METABOLIC Hx Diabetes Mellitus Type 2: Yes - HEMATOLOGICAL/ONCOLOGICAL Hx Blood Disorders: Yes Hx Anemia: Yes Hx Blood Transfusions: Yes Hx Bruising: Yes - INTEGUMENTARY Hx Dermatological Problems: No - MUSCULOSKELETAL/RHEUMATOLOGICAL Hx Falls: No - GASTROINTESTINAL Hx Constipation: Yes Hx Gastritis: Yes Hx Gastroesophageal Reflux: Yes - GENITOURINARY/GYNECOLOGICAL Hx Genitourinary Disorders: No - PSYCHIATRIC Hx Substance Use: No - SURGICAL HISTORY Hx Valve Replacement: Yes Other/Comment: left leg stent placement - ANESTHESIA Hx Anesthesia: Yes Hx Anesthesia Reactions: No Has any member of the family had a problem w/ anesthesia?: No Meds Allergies/Adverse Reactions: Allergies Allergy/AdvReac Type Severity Reaction Status Date / Time No Known Allergies Allergy Verified 10/14/17 12:13 - Medications Medications: Current Medications Amlodipine Besylate (Norvasc) 10 mg PO DAILY [facility] Last Admin: 10/18/17 09:28 Dose: Not Given Aspirin (Aspirin Chewable) 81 mg PO DAILY [facility] Last Admin: 10/17/17 09:08 Dose: 81 mg Clopidogrel Bisulfate (Plavix) 75 mg PO DAILY [facility] Last Admin: 10/17/17 09:09 Dose: 75 mg Folic Acid (Folic Acid) 1 mg PO DAILY [facility] Last Admin: 10/18/17 09:23 Dose: 1 mg Vancomycin/Sodium Chloride (Vancomycin 1 Gm/Ns 200 Ml) 1 gm in 200 mls @ 166.7 mls/hr IVPB Q24H [facility] PRN Reason: Protocol Stop: 10/23/17 10:01 Last Admin: 10/18/17 11:00 Dose: 166.7 mls/hr Pantoprazole Sodium 80 mg/ (Sodium Chloride) 100 mls @ 10 mls/hr IVP .Q10H [facility] PRN Reason: 8 MG/HR Insulin Aspart (Novolog) 0 unit SC ACHS [facility] PRN Reason: Protocol Last Admin: 10/18/17 18:45 Dose: 8 unit Morphine Sulfate (Morphine) 2 mg IVP Q4 PRN PRN Reason: Pain, severe (8-10) Last Admin: 10/18/17 11:31 Dose: 2 mg Phenytoin Sodium (Dilantin) 100 mg PO TID [facility] Last Admin: 10/18/17 13:46 Dose: 100 mg Physical Exam - Constitutional Appears: No Acute Distress - Head Exam Head Exam: ATRAUMATIC, NORMAL INSPECTION, NORMOCEPHALIC - Eye Exam Eye Exam: EOMI, Normal appearance, PERRL Pupil Exam: NORMAL ACCOMODATION - ENT Exam ENT Exam: Mucous Membranes Moist - Neck Exam Neck exam: Positive for: Normal Inspection - Respiratory Exam Respiratory Exam: Clear to Auscultation Bilateral, NORMAL BREATHING PATTERN - Cardiovascular Exam Cardiovascular Exam: REGULAR RHYTHM. absent: JVD - GI/Abdominal Exam GI & Abdominal Exam: Normal Bowel Sounds, Soft. absent: Distended, Tenderness - Extremities Exam Extremities exam: Positive for: normal inspection. Negative for: pedal edema Additional comments: left 1 st toe with dry gangrene - Back Exam Back exam: NORMAL INSPECTION. absent: CVA tenderness (L), CVA tenderness (R) - Neurological Exam Neurological exam: Alert, Oriented x3 - Skin Skin Exam: Normal Color Results - Vital Signs Recent Vital Signs: Last Vital Signs Temp 99.2 F 10/18/17 19:00 Pulse 116 H 10/18/17 19:15 Resp 16 10/18/17 19:15 BP 100/61 10/18/17 19:15 Pulse Ox 100 10/18/17 19:15 - Labs Result Diagrams: 10/18/17 08:07 10/18/17 08:07 Labs: Laboratory Results - last 24 hr 10/17/17 10/17/17 10/18/17 08:28 21:30 07:20 WBC RBC Hgb Hct MCV MCH MCHC RDW Plt Count MPV Neut % (Auto) Lymph % (Auto) [place] % (Auto) Eos % (Auto) Baso % (Auto) Neut # (Auto) Lymph # (Auto) [place] # (Auto) Eos # (Auto) Baso # (Auto) APTT Sodium Potassium Chloride Carbon Dioxide Anion Gap BUN Creatinine Est GFR ( Amer) Est GFR (Non-Af Amer) POC Glucose (mg/dL) 291 H 272 H Random Glucose Calcium Total Bilirubin AST ALT Alkaline Phosphatase Total Protein Albumin Globulin Albumin/Globulin Ratio Triglycerides Cholesterol LDL Cholesterol Direct HDL Cholesterol Blood Type A POSITIVE Antibody Screen Negative 10/18/17 10/18/17 10/18/17 08:07 08:07 08:07 WBC 9.0 RBC 2.60 L Hgb 7.3 L Hct 21.5 L MCV 82.9 MCH 28.3 MCHC 34.1 RDW 17.4 H Plt Count 301 MPV 8.3 Neut % (Auto) 71.8 Lymph % (Auto) 18.8 L [place] % (Auto) 5.6 Eos % (Auto) 3.1 Baso % (Auto) 0.7 Neut # (Auto) 6.5 Lymph # (Auto) 1.7 [place] # (Auto) 0.5 Eos # (Auto) 0.3 Baso # (Auto) 0.1 APTT 60 H D Sodium 142 Potassium 4.6 Chloride 108 H Carbon Dioxide 19 L Anion Gap 20 BUN 19 H Creatinine 1.0 Est GFR ( Amer) > 60 Est GFR (Non-Af Amer) 57 POC Glucose (mg/dL) Random Glucose 266 H Calcium 8.5 L Total Bilirubin 0.6 AST 22 ALT 6 L D Alkaline Phosphatase 117 Total Protein 6.3 Albumin 2.9 L Globulin 3.4 Albumin/Globulin Ratio 0.9 L Triglycerides 163 H Cholesterol 153 LDL Cholesterol Direct 88 HDL Cholesterol 34 Blood Type Antibody Screen 10/18/17 10/18/17 11:14 18:31 WBC RBC Hgb Hct MCV MCH MCHC RDW Plt Count MPV Neut % (Auto) Lymph % (Auto) [place] % (Auto) Eos % (Auto) Baso % (Auto) Neut # (Auto) Lymph # (Auto) [place] # (Auto) Eos # (Auto) Baso # (Auto) APTT Sodium Potassium Chloride Carbon Dioxide Anion Gap BUN Creatinine Est GFR ( Amer) Est GFR (Non-Af Amer) POC Glucose (mg/dL) 319 H 376 H Random Glucose Calcium Total Bilirubin AST ALT Alkaline Phosphatase Total Protein Albumin Globulin Albumin/Globulin Ratio Triglycerides Cholesterol LDL Cholesterol Direct HDL Cholesterol Blood Type Antibody Screen Assessment & Plan - Assessment and Plan (Free Text) Assessment: 1.GI bleed/Anemia/ multiple non bleeding linear gastric ulcers and duodenal erosions had 1 unit PRBC transfusion today.rpt CBC Protonix IV For Colonoscopy 10/19/17 2.S/P Mitral and Aortic valve replacement,off anticoagulation due to GI bleed 3.Siezure disorder on Dilantin 4.PVD/Left toe gangrene,being f/u by Surgery. 5.DM on insulin coverage 6.HTN-on meds.BP controlled 7.Dyslipidemia restart meds when patient resumes feeding
[2017-10-18] MEDS: Sodium Chloride 0.9% 1,000 ML IV SCH (20:30)
[2017-10-18] MEDS: Pantoprazole 80 MG in Sodium Chloride 0.9% 100 ML IVP SCH (20:30)
[2017-10-18] MEDS ORDERED: (Novolog) Insulin Aspart, Recombinant 100 u/ml 10 ml vial SC SCH (20:45)
[2017-10-18] MEDS ORDERED: Sodium Chloride 0.45% 1,000 ML IV SCH (20:45)
[2017-10-18 20:50] LABS: HEMOGLOBIN 7.7 g/dL (11.0-16.0); MEAN CELL VOLUME 84.6 fL (81.0-99.0); MEAN CORPUSCULAR HEMOGLOBIN 27.6 pg (27.0-31.0); MEAN CORPUSCULAR HGB CONC 32.6 g/dL (33.0-37.0); RBC 2.79 Mil/uL (3.80-5.20); RED CELL DISTRIBUTION WIDTH 16.4 % (11.5-14.5)
[2017-10-18 20:52] LABS: WHITE BLOOD COUNT 14.3 K/uL (4.8-10.8)
[2017-10-18] MEDS: Phenytoin 100 mg/2 ml Inj IVP SCH (20:55)
--- NOTE | 2017-10-18 23:48 | CP.PCM.HP ---
History of Present Illness - History of Present Illness History of Present Illness: CC: weakness, mealnotic stool( pt is on heparin) HPI: A 57 year old female with pmhx of DM, chronic smoker, HTN, dyslipidemia, asthma , with mechanical mitral and Aortic valves,anemia,GI bleed,siezure disorder, severe PVD s/p multiple lower extremity angioplasties sent to ER with gangrenous toe. In the ED, the patient was noted to be severely anemic with a hgb of 6.6. The patient states that she had a recent GI work up in [place] where they found non-bleeding ulcers. patient was oh IV heparin until about noon time today,had EGD done after which she had dark stools and blood( as per PACU staff). EGD revealed multiple non bleeding linear gastric ulcers and duodenal erosions.She received 1 unit PRBC in PACU.last Hb this am was 7.3 patient denies chest pain,palpitations ,dizziness,shortness of breath Present on Admission - Present on Admission Any Indicators Present on Admission: Yes History of Uncontrolled Diabetes: Yes Review of Systems - Review of Systems Systems not reviewed;Unavailable: Acuity of Condition, Unstable Vital Signs - Constitutional Constitutional: Fatigue, Lethargy, Malaise, Weakness - EENT Eyes: absent: As Per HPI, Blind Spots, Blurred Vision, Change in Vision, Decreased Night Vision, Diplopia, Discharge, Dry Eye, Exophthalmos, Floaters, Irritation, Itchy Eyes, Loss of Peripheral Vision, Pain, Photophobia, Requires Corrective Lenses, Sees Flashes, Spots in Vision, Tunnel Vision, Other Visual Disturbances, Loss of Vision, Other Nose/Mouth/Throat: absent: As Per HPI, Epistaxis, Nasal Congestion, Nasal Discharge, Nasal Obstruction, Nasal Trauma, Nose Pain, Post Nasal Drip, Sinus Pain, Sinus Pressure, Bleeding Gums, Change in Voice, Dental Pain, Dry Mouth, Dysphagia, Halitosis, Hoarsness, Lip Swelling, Mouth Lesions, Mouth Pain, Odynophagia, Sore Throat, Throat Swelling, Tongue Swelling, Facial Pain, Neck Pain, Neck Mass, Other - Breasts Breasts: absent: As Per HPI, Change in Shape, Mass, Pain, Nipple Discharge, Nipple Inversion, Skin Changes, Swelling, Other - Cardiovascular Cardiovascular: Dyspnea on Exertion, Leg Ulcers, Palpitations - Respiratory Respiratory: absent: As Per HPI, Cough, Dyspnea, Hemoptysis, Dyspnea on Exertion , Wheezing, Snoring, Stridor, Pain on Inspiration, Chest Congestion, Excessive Mucous Production, Change in Mucous Color, Pain with Coughing, Other - Gastrointestinal Gastrointestinal: absent: As Per HPI, Abdominal Pain, Belching, Bloating, Change in Bowel Habits, Change in Stool Character, Coffee Ground Emesis, Constipation, Cramping, Diarrhea, Dyspepsia, Dysphagia, Early Satiety, Excessive Flatus, Fecal Incontinence, Heartburn, Hematemesis, Hematochezia, Loose Stools, Melena, Nausea, Odynophagia, Temesmus, Vomiting, Other - Genitourinary Genitourinary: absent: As Per HPI, Change in Urinary Stream, Difficulty Urinating, Dysuria, Flank Pain, Hematuria, Pyuria, Nocturia, Urinary Incontinence, Urinary Frequency, Urinary Hesitance, Urinary Urgency, Voiding Freq/Small Amts, Freq UTI, Hx Renal/Bladder Calculi, Hx /Renal Surgery, Bladder Distension, Other - Musculoskeletal Musculoskeletal: Muscle Weakness, Myalgias - Integumentary Integumentary: Dry Skin, Non-Healing Lesions - Neurological Neurological: Weakness - Psychiatric Psychiatric: absent: As Per HPI, Abnormal Sleep Pattern, Anhedonia, Anxiety, Auditory Hallucinations, Behavioral Changes, Change in Appetite, Change in Libido, Confusion, Depression, Difficulty Concentrating, Hallucinations, Homicidal Ideation, Hopelessness, Irritability, Memory Loss, Mood Swings, Panic Attacks, Paranoia, Suicidal Ideation, Visual Hallucinations, Tactile Hallucinations, Other Past Patient History - Past Medical History & Family History Past Medical History?: Yes - Past Social History Smoking Status: Light Smoker < 10 Cigarettes Daily - CARDIAC Hx Hypercholesterolemia: Yes Hx Hypertension: Yes - PULMONARY Hx Respiratory Disorders: Yes Hx Asthma: Yes - NEUROLOGICAL Hx Neurological Disorder: Yes Hx Seizures: Yes - HEENT Hx HEENT Problems: No - RENAL Hx Chronic Kidney Disease: No - ENDOCRINE/METABOLIC Hx Diabetes Mellitus Type 2: Yes - HEMATOLOGICAL/ONCOLOGICAL Hx Blood Disorders: Yes Hx Anemia: Yes Hx Blood Transfusions: Yes Hx Bruising: Yes - INTEGUMENTARY Hx Dermatological Problems: No - MUSCULOSKELETAL/RHEUMATOLOGICAL Hx Falls: No - GASTROINTESTINAL Hx Constipation: Yes Hx Gastritis: Yes Hx Gastroesophageal Reflux: Yes - GENITOURINARY/GYNECOLOGICAL Hx Genitourinary Disorders: No - PSYCHIATRIC Hx Substance Use: No - SURGICAL HISTORY Hx Valve Replacement: Yes Other/Comment: left leg stent placement - ANESTHESIA Hx Anesthesia: Yes Hx Anesthesia Reactions: No Has any member of the family had a problem w/ anesthesia?: No Meds Allergies/Adverse Reactions: Allergies Allergy/AdvReac Type Severity Reaction Status Date / Time No Known Allergies Allergy Verified 10/14/17 12:13 Physical Exam - Constitutional Appears: No Acute Distress - Head Exam Head Exam: ATRAUMATIC, NORMAL INSPECTION, NORMOCEPHALIC - Eye Exam Eye Exam: EOMI, Normal appearance, PERRL Pupil Exam: NORMAL ACCOMODATION, PERRL - ENT Exam ENT Exam: Mucous Membranes Moist, Normal Exam - Respiratory Exam Respiratory Exam: Decreased Breath Sounds, Rales, Rhonchi - Cardiovascular Exam Cardiovascular Exam: Tachycardia, +S1, +S2, Systolic Murmur - GI/Abdominal Exam GI & Abdominal Exam: Normal Bowel Sounds, Soft. absent: Tenderness - Rectal Exam Rectal Exam: Deferred Results - Vital Signs Recent Vital Signs: Last Vital Signs Temp 99.2 F 10/18/17 20:00 Pulse 119 H 10/18/17 20:00 Resp 18 10/18/17 20:00 BP 100/61 10/18/17 20:00 Pulse Ox 100 10/18/17 20:00 - Labs Result Diagrams: 10/27/17 06:11 10/27/17 08:06 Labs: Laboratory Results - last 24 hr 10/17/17 10/18/17 10/18/17 08:28 07:20 08:07 WBC 9.0 RBC 2.60 L Hgb 7.3 L Hct 21.5 L MCV 82.9 MCH 28.3 MCHC 34.1 RDW 17.4 H Plt Count 301 MPV 8.3 Neut % (Auto) 71.8 Lymph % (Auto) 18.8 L [place] % (Auto) 5.6 Eos % (Auto) 3.1 Baso % (Auto) 0.7 Neut # (Auto) 6.5 Lymph # (Auto) 1.7 [place] # (Auto) 0.5 Eos # (Auto) 0.3 Baso # (Auto) 0.1 APTT Sodium Potassium Chloride Carbon Dioxide Anion Gap BUN Creatinine Est GFR ( Amer) Est GFR (Non-Af Amer) POC Glucose (mg/dL) 272 H Random Glucose Calcium Total Bilirubin AST ALT Alkaline Phosphatase Total Protein Albumin Globulin Albumin/Globulin Ratio Triglycerides Cholesterol LDL Cholesterol Direct HDL Cholesterol Blood Type A POSITIVE Antibody Screen Negative 10/18/17 10/18/17 10/18/17 08:07 08:07 11:14 WBC RBC Hgb Hct MCV MCH MCHC RDW Plt Count MPV Neut % (Auto) Lymph % (Auto) [place] % (Auto) Eos % (Auto) Baso % (Auto) Neut # (Auto) Lymph # (Auto) [place] # (Auto) Eos # (Auto) Baso # (Auto) APTT 60 H D Sodium 142 Potassium 4.6 Chloride 108 H Carbon Dioxide 19 L Anion Gap 20 BUN 19 H Creatinine 1.0 Est GFR ( Amer) > 60 Est GFR (Non-Af Amer) 57 POC Glucose (mg/dL) 319 H Random Glucose 266 H Calcium 8.5 L Total Bilirubin 0.6 AST 22 ALT 6 L D Alkaline Phosphatase 117 Total Protein 6.3 Albumin 2.9 L Globulin 3.4 Albumin/Globulin Ratio 0.9 L Triglycerides 163 H Cholesterol 153 LDL Cholesterol Direct 88 HDL Cholesterol 34 Blood Type Antibody Screen 10/18/17 10/18/17 10/18/17 18:31 20:47 21:00 WBC 14.3 H D RBC 2.79 L Hgb 7.7 L Hct 23.6 L MCV 84.6 MCH 27.6 MCHC 32.6 L RDW 16.4 H Plt Count 288 MPV 8.0 Neut % (Auto) Lymph % (Auto) [place] % (Auto) Eos % (Auto) Baso % (Auto) Neut # (Auto) Lymph # (Auto) [place] # (Auto) Eos # (Auto) Baso # (Auto) APTT Sodium Potassium Chloride Carbon Dioxide Anion Gap BUN Creatinine Est GFR ( Amer) Est GFR (Non-Af Amer) POC Glucose (mg/dL) 376 H 248 H Random Glucose Calcium Total Bilirubin AST ALT Alkaline Phosphatase Total Protein Albumin Globulin Albumin/Globulin Ratio Triglycerides Cholesterol LDL Cholesterol Direct HDL Cholesterol Blood Type Antibody Screen 10/18/17 23:12 WBC RBC Hgb Hct MCV MCH MCHC RDW Plt Count MPV Neut % (Auto) Lymph % (Auto) [place] % (Auto) Eos % (Auto) Baso % (Auto) Neut # (Auto) Lymph # (Auto) [place] # (Auto) Eos # (Auto) Baso # (Auto) APTT Sodium Potassium Chloride Carbon Dioxide Anion Gap BUN Creatinine Est GFR ( Amer) Est GFR (Non-Af Amer) POC Glucose (mg/dL) 185 H Random Glucose Calcium Total Bilirubin AST ALT Alkaline Phosphatase Total Protein Albumin Globulin Albumin/Globulin Ratio Triglycerides Cholesterol LDL Cholesterol Direct HDL Cholesterol Blood Type Antibody Screen Assessment & Plan (1) Anemia Assessment and Plan: tacycardia due to hypovolemia s/p melena Status: Acute Priority: High (2) GI bleed Assessment and Plan: pt underwent EGD which show linear tear pt is for colonoscopy tommorow she is in PACU for observation Status: Acute (3) S/P MVR (mitral valve replacement) Status: Acute (4) Toe gangrene Status: Acute Priority: High (5) Uncontrolled hypertension Status: Acute (6) Uncontrolled diabetes mellitus Status: Chronic Priority: Medium
[2017-10-19 01:17] LABS: HEMOGLOBIN 7.3 g/dL (11.0-16.0); MEAN CELL VOLUME 84.4 fL (81.0-99.0); MEAN CORPUSCULAR HEMOGLOBIN 28.6 pg (27.0-31.0); MEAN CORPUSCULAR HGB CONC 33.8 g/dL (33.0-37.0); MEAN PLATELET VOLUME 7.6 fL (7.2-11.7); RBC 2.57 Mil/uL (3.80-5.20); RED CELL DISTRIBUTION WIDTH 16.6 % (11.5-14.5); WHITE BLOOD COUNT 10.4 K/uL (4.8-10.8)
[2017-10-19 01:25] LABS: INR 1.1; PROTHROMBIN TIME 12.3 SECONDS (9.7-12.2)
[2017-10-19] MEDS: (Novolog) Insulin Aspart, Recombinant 100 u/ml 10 ml vial SC SCH ×6 (04:00→20:15)
[2017-10-19] MEDS: Phenytoin 100 mg/2 ml Inj IVP SCH ×3 (04:35→20:10)
[2017-10-19] MEDS: Pantoprazole 80 MG in Sodium Chloride 0.9% 100 ML IVP SCH ×2 (06:10→12:16)
[2017-10-19 06:25] LABS: BASO # 0.1 K/uL (0.0-0.2); BASO % 0.6 % (0.0-2.0); EOS # 0.2 K/uL (0.0-0.7); EOS % 1.6 % (0.0-4.0); HEMOGLOBIN 6.7 g/dL (11.0-16.0); LYMPH # 1.7 K/uL (1.0-4.3); LYMPH % 18.6 % (20.0-40.0); MEAN CELL VOLUME 84.3 fL (81.0-99.0); MEAN CORPUSCULAR HEMOGLOBIN 28.4 pg (27.0-31.0); MEAN CORPUSCULAR HGB CONC 33.7 g/dL (33.0-37.0); MEAN PLATELET VOLUME 8.1 fL (7.2-11.7); MONO # 0.6 K/uL (0.0-0.8); MONO % 6.8 % (0.0-10.0); NEUT # 6.6 K/uL (1.8-7.0); NEUT % 72.4 % (50.0-75.0); NRBC % 0.2 % (0.0-2.0); RBC 2.38 Mil/uL (3.80-5.20); RED CELL DISTRIBUTION WIDTH 16.5 % (11.5-14.5); WHITE BLOOD COUNT 9.1 K/uL (4.8-10.8)
[2017-10-19 06:42] LABS: ALB/GLOB RATIO 0.9 (1.0-2.1); ALBUMIN 2.4 g/dL (3.5-5.0); ALT/SGPT 15 U/L (9-52); AST/SGOT 24 U/L (14-36); BLOOD UREA NITROGEN 15 mg/dL (7-17); CALCIUM 7.9 mg/dl (8.6-10.4); GFR AFRICAN-AMERICAN > 60; GFR NON-AFRICAN AMERICAN 57; HDL CHOLESTEROL 30 mg/dL (30-70)
[2017-10-19 06:52] LABS: LDL CHOLESTEROL 69 mg/dL (0-129)
--- NOTE | 2017-10-19 09:18 | CP.PCM.PN ---
Subjective - Date & Time of Evaluation Date of Evaluation: 10/19/17 Time of Evaluation: 09:17 - Subjective Subjective: has palpable pt pulse dry gangrene suspected to be atherombolic no intervention planned does not require anticoagulation for the toe Objective - Vital Signs/Intake and Output Vital Signs (last 24 hours): Temp Pulse Resp BP Pulse Ox 98.8 F 95 H 14 126/55 L 100 10/19/17 04:00 10/19/17 07:01 10/19/17 07:01 10/19/17 07:01 10/19/17 07:01 Intake and Output: 10/19/17 10/19/17 06:59 18:59 Intake Total 2230 70 Output Total 1850 Balance 380 70 - Medications Medications: Current Medications Amlodipine Besylate (Norvasc) 10 mg PO DAILY [facility] Last Admin: 10/18/17 09:28 Dose: Not Given Aspirin (Aspirin Chewable) 81 mg PO DAILY [facility] Last Admin: 10/17/17 09:08 Dose: 81 mg Clopidogrel Bisulfate (Plavix) 75 mg PO DAILY [facility] Last Admin: 10/17/17 09:09 Dose: 75 mg Folic Acid (Folic Acid) 1 mg PO DAILY [facility] Last Admin: 10/18/17 09:23 Dose: 1 mg Vancomycin/Sodium Chloride (Vancomycin 1 Gm/Ns 200 Ml) 1 gm in 200 mls @ 166.7 mls/hr IVPB Q24H [facility] PRN Reason: Protocol Stop: 10/23/17 10:01 Last Admin: 10/18/17 11:00 Dose: 166.7 mls/hr Pantoprazole Sodium 80 mg/ (Sodium Chloride) 100 mls @ 10 mls/hr IVP .Q10H [facility] PRN Reason: 8 MG/HR Last Admin: 10/19/17 06:10 Dose: 10 mls/hr Sodium Chloride (Sodium Chloride 0.9%) 1,000 mls @ 60 mls/hr IV .[id number] [facility] Last Admin: 10/19/17 00:00 Dose: 60 mls/hr Insulin Aspart (Novolog) 0 unit SC Q4H [facility] PRN Reason: Protocol Last Admin: 10/19/17 08:58 Dose: 2 unit Morphine Sulfate (Morphine) 2 mg IVP Q4 PRN PRN Reason: Pain, severe (8-10) Last Admin: 10/18/17 11:31 Dose: 2 mg Phenytoin (Dilantin) 100 mg IVP Q8H [facility] Last Admin: 10/19/17 04:35 Dose: 100 mg - Labs Labs: 10/19/17 06:15 10/19/17 06:15 PT 12.3 SECONDS (9.7-12.2) H 10/19/17 01:13 INR 1.1 10/19/17 01:13 APTT 27 SECONDS (21-34) D 10/19/17 01:13
--- NOTE | 2017-10-19 09:24 | CP.CCUPN ---
<Corie Matias - Last Filed: 10/19/17 09:58> CCU Subjective - Physician Review Subjective (Free Text): 10/19/17 09:22 Patient seen and examined at bedside. Per nursing no acute events overnight. Patient NPO for colonoscopy today. States that last BM had some blood in it. Hgb this morning is 6.7, admits to feeling lightheaded. Will transfuse two units of PRBCs. Denies headaches, fevers, chills, n/v, cp, palpitations, abdominal pain, urinary symptoms. CCU Objective - Vital Signs / Intake & Output Vital Signs (Last 4 hours): Vital Signs Pulse Resp BP Pulse Ox 10/19/17 07:01 95 H 14 126/55 L 100 10/19/17 06:01 96 H 10 L 121/58 L 100 Intake and Output (Last 8hrs): Intake & Output 10/18/17 10/19/17 10/19/17 22:59 06:59 14:59 Intake Total 1185 1320 70 Output Total 250 1600 Balance 935 -280 70 Weight 91.3 kg Intake: IV 275 Intake, IV Amount 430 600 70 Left Antecubital 100 Right Antecubital 300 520 60 Right Antecubital Y-site 30 80 10 Oral 480 720 Blood Product 0 Red Blood Cells Cpd As1 0 Lr Unit [id number] Output: Urine 250 Urine, Voided 250 Urine/Stool Mix 1600 Other: # Voids Urine, Voided 1 1 # Bowel Movements 2 2 - Physical Exam Head: Positive for: Atraumatic, Normocephalic Pupils: Positive for: PERRL Extroacular Muscles: Positive for: EOMI Conjunctiva: Positive for: Normal Mouth: Positive for: Moist Mucous Membranes Neck: Positive for: Normal Range of Motion Respiratory/Chest: Positive for: Clear to Auscultation, Good Air Exchange. Negative for: Respiratory Distress, Accessory Muscle Use Cardiovascular: Positive for: Regular Rate and Rhythm, Normal S1, S2. Negative for: Tachycardic Abdomen: Positive for: Normal Bowel Sounds. Negative for: Tenderness, Distention Upper Extremity: Positive for: Normal Inspection Lower Extremity: Positive for: Other (Right toe dressing intact) Skin: Positive for: Warm, Dry, Normal Color Psychiatric: Positive for: Alert, Oriented x 3 - Medications Active Medications: Active Medications Generic Name Dose Route Start Last Admin Trade Name Freq PRN Reason Stop Dose Admin Amlodipine Besylate 10 mg 10/15/17 10:00 10/18/17 09:28 Norvasc PO Not Given DAILY [facility] Aspirin 81 mg 10/15/17 10:00 10/17/17 09:08 Aspirin Chewable PO 81 mg DAILY [facility]DIA Administration Clopidogrel Bisulfate 75 mg 10/15/17 10:00 10/17/17 09:09 Plavix PO 75 mg DAILY NYDAI Administration Folic Acid 1 mg 10/15/17 10:00 10/18/17 09:23 Folic Acid PO 1 mg DAILY [facility]DIA Administration Vancomycin/Sodium Chloride 1 gm in 200 mls @ 166.7 mls/hr 10/18/17 10:00 11/01 11:00 Vancomycin 1 Gm/Ns 200 Ml IVPB 10/23/17 10:01 166.7 mls/hr Q24H [facility]DIA Administration Protocol Pantoprazole Sodium 80 mg/ 100 mls @ 10 mls/hr 10/18/17 16:00 10/19/17 06:10 Sodium Chloride IVP 10 mls/hr .Q10H NYDIA Administration 8 MG/HR Sodium Chloride 1,000 mls @ 60 mls/hr 10/19/17 00:00 10/19/17 00:00 Sodium Chloride 0.9% IV 60 mls/hr .[id number] NYDIA Administration Insulin Aspart 0 unit 10/19/17 00:01 10/19/17 08:58 Novolog SC 2 unit Q4H NYDIA Administration Protocol Morphine Sulfate 2 mg 10/14/17 19:56 10/18/17 11:31 Morphine IVP 2 mg Q4 PRN Administration Pain, severe (8-10) Phenytoin 100 mg 10/18/17 20:45 10/19/17 04:35 Dilantin IVP 100 mg Q8H NYDIA Administration - Patient Studies Lab Studies: Microbiology Studies 10/14/17 13:15 Blood Culture - Preliminary Blood NO GROWTH AFTER 4 DAYS 10/14/17 13:30 Blood Culture - Preliminary Blood NO GROWTH AFTER 4 DAYS Lab Studies 10/19/17 10/19/17 10/19/17 Range/Units 08:34 06:15 06:15 WBC (4.8-10.8) K/uL RBC (3.80-5.20) Mil/uL Hgb (11.0-16.0) g/dL Hct (34.0-47.0) % MCV (81.0-99.0) fL MCH (27.0-31.0) pg MCHC (33.0-37.0) g/dL RDW (11.5-14.5) % Plt Count (130-400) K/uL MPV (7.2-11.7) fL Neut % (Auto) (50.0-75.0) % Lymph % (Auto) (20.0-40.0) % [place] % (Auto) (0.0-10.0) % Eos % (Auto) (0.0-4.0) % Baso % (Auto) (0.0-2.0) % Neut # (Auto) (1.8-7.0) K/uL Lymph # (Auto) (1.0-4.3) K/uL [place] # (Auto) (0.0-0.8) K/uL Eos # (Auto) (0.0-0.7) K/uL Baso # (Auto) (0.0-0.2) K/uL PT (9.7-12.2) SECONDS INR APTT (21-34) SECONDS Sodium 139 (132-148) mmol/L Potassium 4.2 (3.6-5.2) mmol/L Chloride 108 H (98-107) mmol/L Carbon Dioxide 17 L (22-30) mmol/L Anion Gap 18 (10-20) BUN 15 (7-17) mg/dL Creatinine 1.0 (0.7-1.2) mg/dL Est GFR ( Amer) > 60 Est GFR (Non-Af Amer) 57 POC Glucose (mg/dL) 201 H (65-110) mg/dL Random Glucose 207 H (65-105) mg/dL Calcium 7.9 L (8.6-10.4) mg/dl Phosphorus 3.3 (2.5-4.5) mg/dL Magnesium 1.6 (1.6-2.3) mg/dL Total Bilirubin 0.5 (0.2-1.3) mg/dL AST 24 (14-36) U/L ALT 15 (9-52) U/L Alkaline Phosphatase 92 (38-126) U/L Total Protein 5.2 L (6.3-8.3) g/dL Albumin 2.4 L (3.5-5.0) g/dL Globulin 2.8 (2.2-3.9) gm/dL Albumin/Globulin Ratio 0.9 L (1.0-2.1) Triglycerides 149 (0-149) mg/dL Cholesterol 128 (0-199) mg/dL LDL Cholesterol Direct 69 (0-129) mg/dL HDL Cholesterol 30 (30-70) mg/dL Stool Occult Blood (NEGATIVE) Blood Type Antibody Screen 10/19/17 10/19/17 10/19/17 Range/Units 06:15 04:19 04:00 WBC 9.1 (4.8-10.8) K/uL RBC 2.38 L (3.80-5.20) Mil/uL Hgb 6.7 L (11.0-16.0) g/dL Hct 20.0 L (34.0-47.0) % MCV 84.3 (81.0-99.0) fL MCH 28.4 (27.0-31.0) pg MCHC 33.7 (33.0-37.0) g/dL RDW 16.5 H (11.5-14.5) % Plt Count 264 (130-400) K/uL MPV 8.1 (7.2-11.7) fL Neut % (Auto) 72.4 (50.0-75.0) % Lymph % (Auto) 18.6 L (20.0-40.0) % [place] % (Auto) 6.8 (0.0-10.0) % Eos % (Auto) 1.6 (0.0-4.0) % Baso % (Auto) 0.6 (0.0-2.0) % Neut # (Auto) 6.6 (1.8-7.0) K/uL Lymph # (Auto) 1.7 (1.0-4.3) K/uL [place] # (Auto) 0.6 (0.0-0.8) K/uL Eos # (Auto) 0.2 (0.0-0.7) K/uL Baso # (Auto) 0.1 (0.0-0.2) K/uL PT (9.7-12.2) SECONDS INR APTT (21-34) SECONDS Sodium (132-148) mmol/L Potassium (3.6-5.2) mmol/L Chloride (98-107) mmol/L Carbon Dioxide (22-30) mmol/L Anion Gap (10-20) BUN (7-17) mg/dL Creatinine (0.7-1.2) mg/dL Est GFR ( Amer) Est GFR (Non-Af Amer) POC Glucose (mg/dL) 216 H (65-110) mg/dL Random Glucose (65-105) mg/dL Calcium (8.6-10.4) mg/dl Phosphorus (2.5-4.5) mg/dL Magnesium (1.6-2.3) mg/dL Total Bilirubin (0.2-1.3) mg/dL AST (14-36) U/L ALT (9-52) U/L Alkaline Phosphatase (38-126) U/L Total Protein (6.3-8.3) g/dL Albumin (3.5-5.0) g/dL Globulin (2.2-3.9) gm/dL Albumin/Globulin Ratio (1.0-2.1) Triglycerides (0-149) mg/dL Cholesterol (0-199) mg/dL LDL Cholesterol Direct (0-129) mg/dL HDL Cholesterol (30-70) mg/dL Stool Occult Blood Positive H (NEGATIVE) Blood Type Antibody Screen 10/19/17 10/19/17 10/18/17 Range/Units 01:13 01:13 23:12 WBC 10.4 (4.8-10.8) K/uL RBC 2.57 L (3.80-5.20) Mil/uL Hgb 7.3 L (11.0-16.0) g/dL Hct 21.7 L (34.0-47.0) % MCV 84.4 (81.0-99.0) fL MCH 28.6 (27.0-31.0) pg MCHC 33.8 (33.0-37.0) g/dL RDW 16.6 H (11.5-14.5) % Plt Count 262 (130-400) K/uL MPV 7.6 (7.2-11.7) fL Neut % (Auto) (50.0-75.0) % Lymph % (Auto) (20.0-40.0) % [place] % (Auto) (0.0-10.0) % Eos % (Auto) (0.0-4.0) % Baso % (Auto) (0.0-2.0) % Neut # (Auto) (1.8-7.0) K/uL Lymph # (Auto) (1.0-4.3) K/uL [place] # (Auto) (0.0-0.8) K/uL Eos # (Auto) (0.0-0.7) K/uL Baso # (Auto) (0.0-0.2) K/uL PT 12.3 H (9.7-12.2) SECONDS INR 1.1 APTT 27 D (21-34) SECONDS Sodium (132-148) mmol/L Potassium (3.6-5.2) mmol/L Chloride (98-107) mmol/L Carbon Dioxide (22-30) mmol/L Anion Gap (10-20) BUN (7-17) mg/dL Creatinine (0.7-1.2) mg/dL Est GFR ( Amer) Est GFR (Non-Af Amer) POC Glucose (mg/dL) 185 H (65-110) mg/dL Random Glucose (65-105) mg/dL Calcium (8.6-10.4) mg/dl Phosphorus (2.5-4.5) mg/dL Magnesium (1.6-2.3) mg/dL Total Bilirubin (0.2-1.3) mg/dL AST (14-36) U/L ALT (9-52) U/L Alkaline Phosphatase (38-126) U/L Total Protein (6.3-8.3) g/dL Albumin (3.5-5.0) g/dL Globulin (2.2-3.9) gm/dL Albumin/Globulin Ratio (1.0-2.1) Triglycerides (0-149) mg/dL Cholesterol (0-199) mg/dL LDL Cholesterol Direct (0-129) mg/dL HDL Cholesterol (30-70) mg/dL Stool Occult Blood (NEGATIVE) Blood Type Antibody Screen 10/18/17 10/18/17 10/18/17 Range/Units 21:00 20:47 18:31 WBC 14.3 H D (4.8-10.8) K/uL RBC 2.79 L (3.80-5.20) Mil/uL Hgb 7.7 L (11.0-16.0) g/dL Hct 23.6 L (34.0-47.0) % MCV 84.6 (81.0-99.0) fL MCH 27.6 (27.0-31.0) pg MCHC 32.6 L (33.0-37.0) g/dL RDW 16.4 H (11.5-14.5) % Plt Count 288 (130-400) K/uL MPV 8.0 (7.2-11.7) fL Neut % (Auto) (50.0-75.0) % Lymph % (Auto) (20.0-40.0) % [place] % (Auto) (0.0-10.0) % Eos % (Auto) (0.0-4.0) % Baso % (Auto) (0.0-2.0) % Neut # (Auto) (1.8-7.0) K/uL Lymph # (Auto) (1.0-4.3) K/uL [place] # (Auto) (0.0-0.8) K/uL Eos # (Auto) (0.0-0.7) K/uL Baso # (Auto) (0.0-0.2) K/uL PT (9.7-12.2) SECONDS INR APTT (21-34) SECONDS Sodium (132-148) mmol/L Potassium (3.6-5.2) mmol/L Chloride (98-107) mmol/L Carbon Dioxide (22-30) mmol/L Anion Gap (10-20) BUN (7-17) mg/dL Creatinine (0.7-1.2) mg/dL Est GFR ( Amer) Est GFR (Non-Af Amer) POC Glucose (mg/dL) 248 H 376 H (65-110) mg/dL Random Glucose (65-105) mg/dL Calcium (8.6-10.4) mg/dl Phosphorus (2.5-4.5) mg/dL Magnesium (1.6-2.3) mg/dL Total Bilirubin (0.2-1.3) mg/dL AST (14-36) U/L ALT (9-52) U/L Alkaline Phosphatase (38-126) U/L Total Protein (6.3-8.3) g/dL Albumin (3.5-5.0) g/dL Globulin (2.2-3.9) gm/dL Albumin/Globulin Ratio (1.0-2.1) Triglycerides (0-149) mg/dL Cholesterol (0-199) mg/dL LDL Cholesterol Direct (0-129) mg/dL HDL Cholesterol (30-70) mg/dL Stool Occult Blood (NEGATIVE) Blood Type Antibody Screen 10/18/17 10/17/17 Range/Units 11:14 08:28 WBC (4.8-10.8) K/uL RBC (3.80-5.20) Mil/uL Hgb (11.0-16.0) g/dL Hct (34.0-47.0) % MCV (81.0-99.0) fL MCH (27.0-31.0) pg MCHC (33.0-37.0) g/dL RDW (11.5-14.5) % Plt Count (130-400) K/uL MPV (7.2-11.7) fL Neut % (Auto) (50.0-75.0) % Lymph % (Auto) (20.0-40.0) % [place] % (Auto) (0.0-10.0) % Eos % (Auto) (0.0-4.0) % Baso % (Auto) (0.0-2.0) % Neut # (Auto) (1.8-7.0) K/uL Lymph # (Auto) (1.0-4.3) K/uL [place] # (Auto) (0.0-0.8) K/uL Eos # (Auto) (0.0-0.7) K/uL Baso # (Auto) (0.0-0.2) K/uL PT (9.7-12.2) SECONDS INR APTT (21-34) SECONDS Sodium (132-148) mmol/L Potassium (3.6-5.2) mmol/L Chloride (98-107) mmol/L Carbon Dioxide (22-30) mmol/L Anion Gap (10-20) BUN (7-17) mg/dL Creatinine (0.7-1.2) mg/dL Est GFR ( Amer) Est GFR (Non-Af Amer) POC Glucose (mg/dL) 319 H (65-110) mg/dL Random Glucose (65-105) mg/dL Calcium (8.6-10.4) mg/dl Phosphorus (2.5-4.5) mg/dL Magnesium (1.6-2.3) mg/dL Total Bilirubin (0.2-1.3) mg/dL AST (14-36) U/L ALT (9-52) U/L Alkaline Phosphatase (38-126) U/L Total Protein (6.3-8.3) g/dL Albumin (3.5-5.0) g/dL Globulin (2.2-3.9) gm/dL Albumin/Globulin Ratio (1.0-2.1) Triglycerides (0-149) mg/dL Cholesterol (0-199) mg/dL LDL Cholesterol Direct (0-129) mg/dL HDL Cholesterol (30-70) mg/dL Stool Occult Blood (NEGATIVE) Blood Type A POSITIVE Antibody Screen Negative Laboratory Results - last 24 hr 10/17/17 10/18/17 10/18/17 08:28 11:14 18:31 WBC RBC Hgb Hct MCV MCH MCHC RDW Plt Count MPV Neut % (Auto) Lymph % (Auto) [place] % (Auto) Eos % (Auto) Baso % (Auto) Neut # (Auto) Lymph # (Auto) [place] # (Auto) Eos # (Auto) Baso # (Auto) PT INR APTT Sodium Potassium Chloride Carbon Dioxide Anion Gap BUN Creatinine Est GFR ( Amer) Est GFR (Non-Af Amer) POC Glucose (mg/dL) 319 H 376 H Random Glucose Calcium Phosphorus Magnesium Total Bilirubin AST ALT Alkaline Phosphatase Total Protein Albumin Globulin Albumin/Globulin Ratio Triglycerides Cholesterol LDL Cholesterol Direct HDL Cholesterol Stool Occult Blood Blood Type A POSITIVE Antibody Screen Negative 10/18/17 10/18/17 10/18/17 20:47 21:00 23:12 WBC 14.3 H D RBC 2.79 L Hgb 7.7 L Hct 23.6 L MCV 84.6 MCH 27.6 MCHC 32.6 L RDW 16.4 H Plt Count 288 MPV 8.0 Neut % (Auto) Lymph % (Auto) [place] % (Auto) Eos % (Auto) Baso % (Auto) Neut # (Auto) Lymph # (Auto) [place] # (Auto) Eos # (Auto) Baso # (Auto) PT INR APTT Sodium Potassium Chloride Carbon Dioxide Anion Gap BUN Creatinine Est GFR ( Amer) Est GFR (Non-Af Amer) POC Glucose (mg/dL) 248 H 185 H Random Glucose Calcium Phosphorus Magnesium Total Bilirubin AST ALT Alkaline Phosphatase Total Protein Albumin Globulin Albumin/Globulin Ratio Triglycerides Cholesterol LDL Cholesterol Direct HDL Cholesterol Stool Occult Blood Blood Type Antibody Screen 10/19/17 10/19/17 10/19/17 01:13 01:13 04:00 WBC 10.4 RBC 2.57 L Hgb 7.3 L Hct 21.7 L MCV 84.4 MCH 28.6 MCHC 33.8 RDW 16.6 H Plt Count 262 MPV 7.6 Neut % (Auto) Lymph % (Auto) [place] % (Auto) Eos % (Auto) Baso % (Auto) Neut # (Auto) Lymph # (Auto) [place] # (Auto) Eos # (Auto) Baso # (Auto) PT 12.3 H INR 1.1 APTT 27 D Sodium Potassium Chloride Carbon Dioxide Anion Gap BUN Creatinine Est GFR ( Amer) Est GFR (Non-Af Amer) POC Glucose (mg/dL) Random Glucose Calcium Phosphorus Magnesium Total Bilirubin AST ALT Alkaline Phosphatase Total Protein Albumin Globulin Albumin/Globulin Ratio Triglycerides Cholesterol LDL Cholesterol Direct HDL Cholesterol Stool Occult Blood Positive H Blood Type Antibody Screen 10/19/17 10/19/17 10/19/17 04:19 06:15 06:15 WBC 9.1 RBC 2.38 L Hgb 6.7 L Hct 20.0 L MCV 84.3 MCH 28.4 MCHC 33.7 RDW 16.5 H Plt Count 264 MPV 8.1 Neut % (Auto) 72.4 Lymph % (Auto) 18.6 L [place] % (Auto) 6.8 Eos % (Auto) 1.6 Baso % (Auto) 0.6 Neut # (Auto) 6.6 Lymph # (Auto) 1.7 [place] # (Auto) 0.6 Eos # (Auto) 0.2 Baso # (Auto) 0.1 PT INR APTT Sodium 139 Potassium 4.2 Chloride 108 H Carbon Dioxide 17 L Anion Gap 18 BUN 15 Creatinine 1.0 Est GFR ( Amer) > 60 Est GFR (Non-Af Amer) 57 POC Glucose (mg/dL) 216 H Random Glucose 207 H Calcium 7.9 L Phosphorus Magnesium Total Bilirubin 0.5 AST 24 ALT 15 Alkaline Phosphatase 92 Total Protein 5.2 L Albumin 2.4 L Globulin 2.8 Albumin/Globulin Ratio 0.9 L Triglycerides 149 Cholesterol 128 LDL Cholesterol Direct 69 HDL Cholesterol 30 Stool Occult Blood Blood Type Antibody Screen 10/19/17 10/19/17 06:15 08:34 WBC RBC Hgb Hct MCV MCH MCHC RDW Plt Count MPV Neut % (Auto) Lymph % (Auto) [place] % (Auto) Eos % (Auto) Baso % (Auto) Neut # (Auto) Lymph # (Auto) [place] # (Auto) Eos # (Auto) Baso # (Auto) PT INR APTT Sodium Potassium Chloride Carbon Dioxide Anion Gap BUN Creatinine Est GFR ( Amer) Est GFR (Non-Af Amer) POC Glucose (mg/dL) 201 H Random Glucose Calcium Phosphorus 3.3 Magnesium 1.6 Total Bilirubin AST ALT Alkaline Phosphatase Total Protein Albumin Globulin Albumin/Globulin Ratio Triglycerides Cholesterol LDL Cholesterol Direct HDL Cholesterol Stool Occult Blood Blood Type Antibody Screen Fingerstick Blood Sugar Results: 201 Critical Care Progress Note - Nutrition Nutrition: Nutrition Category Date Time Status NPO Diet [DIET] Diets 10/19/17 Breakfast Active Assessment/Plan - Assessment and Plan (Free Text) Assessment: Patient is a 57 year old female with past medical history of Diabetes, Mechanical aortic/mitral valve, chronic smoker, seizure disorder, PVD presented to the hospital initially for left toe infection. Was started on heparin drip. While on the floor patient started having bloody bowel movements. All anticoagulation on hold. Went for EGD yesterday which showed non-bleeding gastric ulcers and duodenitis. Received a total of 3 units of PRBCs. Transferred to the ICU for further monitoring -Stable, afebrile -Patient with GI bleed, stool occult positive -NPO for colonoscopy today 10/19/17 -Hgb 6.7 this morning, will transfuse additional 2 units of PRBCs -Continue Protonix drip -S/P Mitral and Aortic valve replacement,off anticoagulation due to GI bleed -Patient with PVD, left toe gangrene, no surgical intervention at this time, podiatry following -Antibiotics: Vancomycin 1 gm daily -History of seizure disorder, continue Dilantin 100 q8H -History of diabetes, on insulin coverage, Accuchecks ACHS -Will continue to monitor in the ICU -Plan discussed with Dr Zhou <Derick Zhou - Last Filed: 10/21/17 08:11> CCU Objective - Vital Signs / Intake & Output Vital Signs (Last 4 hours): Vital Signs Temp Pulse Resp BP Pulse Ox 10/19/17 14:35 93 H 21 157/68 H 100 10/19/17 14:22 98.5 F 99 H 16 10/19/17 14:07 98.4 F 91 H 18 123/50 L 10/19/17 13:52 98.4 F 92 H 18 143/57 L 10/19/17 13:48 98.4 F 98 H 18 143/57 L 10/19/17 13:34 98.4 F 101 H 18 143/69 Intake and Output (Last 8hrs): Intake & Output 10/19/17 10/19/17 10/19/17 06:59 14:59 22:59 Intake Total 1320 1050 Output Total 1600 300 Balance -280 750 Weight 201 lb 4.513 oz Intake: Intake, IV Amount 600 250 Right Antecubital 520 180 Right Antecubital Y-site 80 70 Oral 720 100 Blood Product 650 Red Blood Cells Cpd As1 0 Lr Unit [id number] Red Blood Cells Cpd As1 325 Lr Unit [id number] Red Blood Cells Cpd As1 325 Lr Unit [id number] Other 50 Red Blood Cells Cpd As1 50 Lr Unit [id number] Output: Urine 300 Urine, Voided 300 Stool 0 Urine/Stool Mix 1600 Other: # Voids Urine, Voided 1 # Bowel Movements 2 1 - Medications Active Medications: Active Medications Generic Name Dose Route Start Last Admin Trade Name Freq PRN Reason Stop Dose Admin Amlodipine Besylate 10 mg 10/15/17 10:00 10/19/17 10:00 Norvasc PO Not Given DAILY [facility] Aspirin 81 mg 10/15/17 10:00 10/17/17 09:08 Aspirin Chewable PO 81 mg DAILY [facility]DIA Administration Clopidogrel Bisulfate 75 mg 10/15/17 10:00 10/17/17 09:09 Plavix PO 75 mg DAILY [facility] Administration Folic Acid 1 mg 10/15/17 10:00 10/19/17 09:20 Folic Acid PO Not Given DAILY [facility]DIA Pantoprazole Sodium 80 mg/ 100 mls @ 10 mls/hr 10/18/17 16:00 10/19/17 12:16 Sodium Chloride IVP Not Given .Q10H NYDIA 8 MG/HR Sodium Chloride 1,000 mls @ 60 mls/hr 10/19/17 00:00 10/19/17 00:00 Sodium Chloride 0.9% IV 60 mls/hr .[id number] [facility]DIA Administration Vancomycin/Sodium Chloride 1 gm in 200 mls @ 166.7 mls/hr 10/19/17 18:00 Vancomycin 1 Gm/Ns 200 Ml IVPB 10/24/17 18:01 Q24H [facility] Protocol Insulin Aspart 0 unit 10/19/17 00:01 10/19/17 12:16 Novolog SC Not Given Q4H [facility] Protocol Morphine Sulfate 2 mg 10/14/17 19:56 10/18/17 11:31 Morphine IVP 2 mg Q4 PRN Administration Pain, severe (8-10) Phenytoin 100 mg 10/18/17 20:45 10/19/17 12:20 Dilantin IVP 100 mg Q8H [facility]DIA Administration - Patient Studies Lab Studies: Microbiology Studies 10/14/17 13:15 Blood Culture - Preliminary Blood NO GROWTH AFTER 4 DAYS 10/14/17 13:30 Blood Culture - Preliminary Blood NO GROWTH AFTER 4 DAYS Lab Studies 10/19/17 10/19/17 10/19/17 Range/Units 15:38 11:28 09:55 WBC (4.8-10.8) K/uL RBC (3.80-5.20) Mil/uL Hgb (11.0-16.0) g/dL Hct (34.0-47.0) % MCV (81.0-99.0) fL MCH (27.0-31.0) pg MCHC (33.0-37.0) g/dL RDW (11.5-14.5) % Plt Count (130-400) K/uL MPV (7.2-11.7) fL Neut % (Auto) (50.0-75.0) % Lymph % (Auto) (20.0-40.0) % [place] % (Auto) (0.0-10.0) % Eos % (Auto) (0.0-4.0) % Baso % (Auto) (0.0-2.0) % Neut # (Auto) (1.8-7.0) K/uL Lymph # (Auto) (1.0-4.3) K/uL [place] # (Auto) (0.0-0.8) K/uL Eos # (Auto) (0.0-0.7) K/uL Baso # (Auto) (0.0-0.2) K/uL PT (9.7-12.2) SECONDS INR APTT (21-34) SECONDS Sodium (132-148) mmol/L Potassium (3.6-5.2) mmol/L Chloride (98-107) mmol/L Carbon Dioxide (22-30) mmol/L Anion Gap (10-20) BUN (7-17) mg/dL Creatinine (0.7-1.2) mg/dL Est GFR ( Amer) Est GFR (Non-Af Amer) POC Glucose (mg/dL) 203 H 180 H (65-110) mg/dL Random Glucose (65-105) mg/dL Calcium (8.6-10.4) mg/dl Phosphorus (2.5-4.5) mg/dL Magnesium (1.6-2.3) mg/dL Total Bilirubin (0.2-1.3) mg/dL AST (14-36) U/L ALT (9-52) U/L Alkaline Phosphatase (38-126) U/L Total Protein (6.3-8.3) g/dL Albumin (3.5-5.0) g/dL Globulin (2.2-3.9) gm/dL Albumin/Globulin Ratio (1.0-2.1) Triglycerides (0-149) mg/dL Cholesterol (0-199) mg/dL LDL Cholesterol Direct (0-129) mg/dL HDL Cholesterol (30-70) mg/dL Stool Occult Blood (NEGATIVE) Vancomycin Trough 9.3 (5.0-10.0) ug/mL Blood Type Antibody Screen 10/19/17 10/19/17 10/19/17 Range/Units 08:34 06:15 06:15 WBC (4.8-10.8) K/uL RBC (3.80-5.20) Mil/uL Hgb (11.0-16.0) g/dL Hct (34.0-47.0) % MCV (81.0-99.0) fL MCH (27.0-31.0) pg MCHC (33.0-37.0) g/dL RDW (11.5-14.5) % Plt Count (130-400) K/uL MPV (7.2-11.7) fL Neut % (Auto) (50.0-75.0) % Lymph % (Auto) (20.0-40.0) % [place] % (Auto) (0.0-10.0) % Eos % (Auto) (0.0-4.0) % Baso % (Auto) (0.0-2.0) % Neut # (Auto) (1.8-7.0) K/uL Lymph # (Auto) (1.0-4.3) K/uL [place] # (Auto) (0.0-0.8) K/uL Eos # (Auto) (0.0-0.7) K/uL Baso # (Auto) (0.0-0.2) K/uL PT (9.7-12.2) SECONDS INR APTT (21-34) SECONDS Sodium 139 (132-148) mmol/L Potassium 4.2 (3.6-5.2) mmol/L Chloride 108 H (98-107) mmol/L Carbon Dioxide 17 L (22-30) mmol/L Anion Gap 18 (10-20) BUN 15 (7-17) mg/dL Creatinine 1.0 (0.7-1.2) mg/dL Est GFR ( Amer) > 60 Est GFR (Non-Af Amer) 57 POC Glucose (mg/dL) 201 H (65-110) mg/dL Random Glucose 207 H (65-105) mg/dL Calcium 7.9 L (8.6-10.4) mg/dl Phosphorus 3.3 (2.5-4.5) mg/dL Magnesium 1.6 (1.6-2.3) mg/dL Total Bilirubin 0.5 (0.2-1.3) mg/dL AST 24 (14-36) U/L ALT 15 (9-52) U/L Alkaline Phosphatase 92 (38-126) U/L Total Protein 5.2 L (6.3-8.3) g/dL Albumin 2.4 L (3.5-5.0) g/dL Globulin 2.8 (2.2-3.9) gm/dL Albumin/Globulin Ratio 0.9 L (1.0-2.1) Triglycerides 149 (0-149) mg/dL Cholesterol 128 (0-199) mg/dL LDL Cholesterol Direct 69 (0-129) mg/dL HDL Cholesterol 30 (30-70) mg/dL Stool Occult Blood (NEGATIVE) Vancomycin Trough (5.0-10.0) ug/mL Blood Type Antibody Screen 10/19/17 10/19/17 10/19/17 Range/Units 06:15 04:19 04:00 WBC 9.1 (4.8-10.8) K/uL RBC 2.38 L (3.80-5.20) Mil/uL Hgb 6.7 L (11.0-16.0) g/dL Hct 20.0 L (34.0-47.0) % MCV 84.3 (81.0-99.0) fL MCH 28.4 (27.0-31.0) pg MCHC 33.7 (33.0-37.0) g/dL RDW 16.5 H (11.5-14.5) % Plt Count 264 (130-400) K/uL MPV 8.1 (7.2-11.7) fL Neut % (Auto) 72.4 (50.0-75.0) % Lymph % (Auto) 18.6 L (20.0-40.0) % [place] % (Auto) 6.8 (0.0-10.0) % Eos % (Auto) 1.6 (0.0-4.0) % Baso % (Auto) 0.6 (0.0-2.0) % Neut # (Auto) 6.6 (1.8-7.0) K/uL Lymph # (Auto) 1.7 (1.0-4.3) K/uL [place] # (Auto) 0.6 (0.0-0.8) K/uL Eos # (Auto) 0.2 (0.0-0.7) K/uL Baso # (Auto) 0.1 (0.0-0.2) K/uL PT (9.7-12.2) SECONDS INR APTT (21-34) SECONDS Sodium (132-148) mmol/L Potassium (3.6-5.2) mmol/L Chloride (98-107) mmol/L Carbon Dioxide (22-30) mmol/L Anion Gap (10-20) BUN (7-17) mg/dL Creatinine (0.7-1.2) mg/dL Est GFR ( Amer) Est GFR (Non-Af Amer) POC Glucose (mg/dL) 216 H (65-110) mg/dL Random Glucose (65-105) mg/dL Calcium (8.6-10.4) mg/dl Phosphorus (2.5-4.5) mg/dL Magnesium (1.6-2.3) mg/dL Total Bilirubin (0.2-1.3) mg/dL AST (14-36) U/L ALT (9-52) U/L Alkaline Phosphatase (38-126) U/L Total Protein (6.3-8.3) g/dL Albumin (3.5-5.0) g/dL Globulin (2.2-3.9) gm/dL Albumin/Globulin Ratio (1.0-2.1) Triglycerides (0-149) mg/dL Cholesterol (0-199) mg/dL LDL Cholesterol Direct (0-129) mg/dL HDL Cholesterol (30-70) mg/dL Stool Occult Blood Positive H (NEGATIVE) Vancomycin Trough (5.0-10.0) ug/mL Blood Type Antibody Screen 10/19/17 10/19/17 10/18/17 Range/Units 01:13 01:13 23:12 WBC 10.4 (4.8-10.8) K/uL RBC 2.57 L (3.80-5.20) Mil/uL Hgb 7.3 L (11.0-16.0) g/dL Hct 21.7 L (34.0-47.0) % MCV 84.4 (81.0-99.0) fL MCH 28.6 (27.0-31.0) pg MCHC 33.8 (33.0-37.0) g/dL RDW 16.6 H (11.5-14.5) % Plt Count 262 (130-400) K/uL MPV 7.6 (7.2-11.7) fL Neut % (Auto) (50.0-75.0) % Lymph % (Auto) (20.0-40.0) % [place] % (Auto) (0.0-10.0) % Eos % (Auto) (0.0-4.0) % Baso % (Auto) (0.0-2.0) % Neut # (Auto) (1.8-7.0) K/uL Lymph # (Auto) (1.0-4.3) K/uL [place] # (Auto) (0.0-0.8) K/uL Eos # (Auto) (0.0-0.7) K/uL Baso # (Auto) (0.0-0.2) K/uL PT 12.3 H (9.7-12.2) SECONDS INR 1.1 APTT 27 D (21-34) SECONDS Sodium (132-148) mmol/L Potassium (3.6-5.2) mmol/L Chloride (98-107) mmol/L Carbon Dioxide (22-30) mmol/L Anion Gap (10-20) BUN (7-17) mg/dL Creatinine (0.7-1.2) mg/dL Est GFR ( Amer) Est GFR (Non-Af Amer) POC Glucose (mg/dL) 185 H (65-110) mg/dL Random Glucose (65-105) mg/dL Calcium (8.6-10.4) mg/dl Phosphorus (2.5-4.5) mg/dL Magnesium (1.6-2.3) mg/dL Total Bilirubin (0.2-1.3) mg/dL AST (14-36) U/L ALT (9-52) U/L Alkaline Phosphatase (38-126) U/L Total Protein (6.3-8.3) g/dL Albumin (3.5-5.0) g/dL Globulin (2.2-3.9) gm/dL Albumin/Globulin Ratio (1.0-2.1) Triglycerides (0-149) mg/dL Cholesterol (0-199) mg/dL LDL Cholesterol Direct (0-129) mg/dL HDL Cholesterol (30-70) mg/dL Stool Occult Blood (NEGATIVE) Vancomycin Trough (5.0-10.0) ug/mL Blood Type Antibody Screen 10/18/17 10/18/17 10/18/17 Range/Units 21:00 20:47 18:31 WBC 14.3 H D (4.8-10.8) K/uL RBC 2.79 L (3.80-5.20) Mil/uL Hgb 7.7 L (11.0-16.0) g/dL Hct 23.6 L (34.0-47.0) % MCV 84.6 (81.0-99.0) fL MCH 27.6 (27.0-31.0) pg MCHC 32.6 L (33.0-37.0) g/dL RDW 16.4 H (11.5-14.5) % Plt Count 288 (130-400) K/uL MPV 8.0 (7.2-11.7) fL Neut % (Auto) (50.0-75.0) % Lymph % (Auto) (20.0-40.0) % [place] % (Auto) (0.0-10.0) % Eos % (Auto) (0.0-4.0) % Baso % (Auto) (0.0-2.0) % Neut # (Auto) (1.8-7.0) K/uL Lymph # (Auto) (1.0-4.3) K/uL [place] # (Auto) (0.0-0.8) K/uL Eos # (Auto) (0.0-0.7) K/uL Baso # (Auto) (0.0-0.2) K/uL PT (9.7-12.2) SECONDS INR APTT (21-34) SECONDS Sodium (132-148) mmol/L Potassium (3.6-5.2) mmol/L Chloride (98-107) mmol/L Carbon Dioxide (22-30) mmol/L Anion Gap (10-20) BUN (7-17) mg/dL Creatinine (0.7-1.2) mg/dL Est GFR ( Amer) Est GFR (Non-Af Amer) POC Glucose (mg/dL) 248 H 376 H (65-110) mg/dL Random Glucose (65-105) mg/dL Calcium (8.6-10.4) mg/dl Phosphorus (2.5-4.5) mg/dL Magnesium (1.6-2.3) mg/dL Total Bilirubin (0.2-1.3) mg/dL AST (14-36) U/L ALT (9-52) U/L Alkaline Phosphatase (38-126) U/L Total Protein (6.3-8.3) g/dL Albumin (3.5-5.0) g/dL Globulin (2.2-3.9) gm/dL Albumin/Globulin Ratio (1.0-2.1) Triglycerides (0-149) mg/dL Cholesterol (0-199) mg/dL LDL Cholesterol Direct (0-129) mg/dL HDL Cholesterol (30-70) mg/dL Stool Occult Blood (NEGATIVE) Vancomycin Trough (5.0-10.0) ug/mL Blood Type Antibody Screen 10/17/17 Range/Units 08:28 WBC (4.8-10.8) K/uL RBC (3.80-5.20) Mil/uL Hgb (11.0-16.0) g/dL Hct (34.0-47.0) % MCV (81.0-99.0) fL MCH (27.0-31.0) pg MCHC (33.0-37.0) g/dL RDW (11.5-14.5) % Plt Count (130-400) K/uL MPV (7.2-11.7) fL Neut % (Auto) (50.0-75.0) % Lymph % (Auto) (20.0-40.0) % [place] % (Auto) (0.0-10.0) % Eos % (Auto) (0.0-4.0) % Baso % (Auto) (0.0-2.0) % Neut # (Auto) (1.8-7.0) K/uL Lymph # (Auto) (1.0-4.3) K/uL [place] # (Auto) (0.0-0.8) K/uL Eos # (Auto) (0.0-0.7) K/uL Baso # (Auto) (0.0-0.2) K/uL PT (9.7-12.2) SECONDS INR APTT (21-34) SECONDS Sodium (132-148) mmol/L Potassium (3.6-5.2) mmol/L Chloride (98-107) mmol/L Carbon Dioxide (22-30) mmol/L Anion Gap (10-20) BUN (7-17) mg/dL Creatinine (0.7-1.2) mg/dL Est GFR ( Amer) Est GFR (Non-Af Amer) POC Glucose (mg/dL) (65-110) mg/dL Random Glucose (65-105) mg/dL Calcium (8.6-10.4) mg/dl Phosphorus (2.5-4.5) mg/dL Magnesium (1.6-2.3) mg/dL Total Bilirubin (0.2-1.3) mg/dL AST (14-36) U/L ALT (9-52) U/L Alkaline Phosphatase (38-126) U/L Total Protein (6.3-8.3) g/dL Albumin (3.5-5.0) g/dL Globulin (2.2-3.9) gm/dL Albumin/Globulin Ratio (1.0-2.1) Triglycerides (0-149) mg/dL Cholesterol (0-199) mg/dL LDL Cholesterol Direct (0-129) mg/dL HDL Cholesterol (30-70) mg/dL Stool Occult Blood (NEGATIVE) Vancomycin Trough (5.0-10.0) ug/mL Blood Type A POSITIVE Antibody Screen Negative Laboratory Results - last 24 hr 10/17/17 10/18/17 10/18/17 08:28 18:31 20:47 WBC 14.3 H D RBC 2.79 L Hgb 7.7 L Hct 23.6 L MCV 84.6 MCH 27.6 MCHC 32.6 L RDW 16.4 H Plt Count 288 MPV 8.0 Neut % (Auto) Lymph % (Auto) [place] % (Auto) Eos % (Auto) Baso % (Auto) Neut # (Auto) Lymph # (Auto) [place] # (Auto) Eos # (Auto) Baso # (Auto) PT INR APTT Sodium Potassium Chloride Carbon Dioxide Anion Gap BUN Creatinine Est GFR ( Amer) Est GFR (Non-Af Amer) POC Glucose (mg/dL) 376 H Random Glucose Calcium Phosphorus Magnesium Total Bilirubin AST ALT Alkaline Phosphatase Total Protein Albumin Globulin Albumin/Globulin Ratio Triglycerides Cholesterol LDL Cholesterol Direct HDL Cholesterol Stool Occult Blood Vancomycin Trough Blood Type A POSITIVE Antibody Screen Negative 10/18/17 10/18/17 10/19/17 21:00 23:12 01:13 WBC RBC Hgb Hct MCV MCH MCHC RDW Plt Count MPV Neut % (Auto) Lymph % (Auto) [place] % (Auto) Eos % (Auto) Baso % (Auto) Neut # (Auto) Lymph # (Auto) [place] # (Auto) Eos # (Auto) Baso # (Auto) PT 12.3 H INR 1.1 APTT 27 D Sodium Potassium Chloride Carbon Dioxide Anion Gap BUN Creatinine Est GFR ( Amer) Est GFR (Non-Af Amer) POC Glucose (mg/dL) 248 H 185 H Random Glucose Calcium Phosphorus Magnesium Total Bilirubin AST ALT Alkaline Phosphatase Total Protein Albumin Globulin Albumin/Globulin Ratio Triglycerides Cholesterol LDL Cholesterol Direct HDL Cholesterol Stool Occult Blood Vancomycin Trough Blood Type Antibody Screen 10/19/17 10/19/17 10/19/17 01:13 04:00 04:19 WBC 10.4 RBC 2.57 L Hgb 7.3 L Hct 21.7 L MCV 84.4 MCH 28.6 MCHC 33.8 RDW 16.6 H Plt Count 262 MPV 7.6 Neut % (Auto) Lymph % (Auto) [place] % (Auto) Eos % (Auto) Baso % (Auto) Neut # (Auto) Lymph # (Auto) [place] # (Auto) Eos # (Auto) Baso # (Auto) PT INR APTT Sodium Potassium Chloride Carbon Dioxide Anion Gap BUN Creatinine Est GFR ( Amer) Est GFR (Non-Af Amer) POC Glucose (mg/dL) 216 H Random Glucose Calcium Phosphorus Magnesium Total Bilirubin AST ALT Alkaline Phosphatase Total Protein Albumin Globulin Albumin/Globulin Ratio Triglycerides Cholesterol LDL Cholesterol Direct HDL Cholesterol Stool Occult Blood Positive H Vancomycin Trough Blood Type Antibody Screen 10/19/17 10/19/17 10/19/17 06:15 06:15 06:15 WBC 9.1 RBC 2.38 L Hgb 6.7 L Hct 20.0 L MCV 84.3 MCH 28.4 MCHC 33.7 RDW 16.5 H Plt Count 264 MPV 8.1 Neut % (Auto) 72.4 Lymph % (Auto) 18.6 L [place] % (Auto) 6.8 Eos % (Auto) 1.6 Baso % (Auto) 0.6 Neut # (Auto) 6.6 Lymph # (Auto) 1.7 [place] # (Auto) 0.6 Eos # (Auto) 0.2 Baso # (Auto) 0.1 PT INR APTT Sodium 139 Potassium 4.2 Chloride 108 H Carbon Dioxide 17 L Anion Gap 18 BUN 15 Creatinine 1.0 Est GFR ( Amer) > 60 Est GFR (Non-Af Amer) 57 POC Glucose (mg/dL) Random Glucose 207 H Calcium 7.9 L Phosphorus 3.3 Magnesium 1.6 Total Bilirubin 0.5 AST 24 ALT 15 Alkaline Phosphatase 92 Total Protein 5.2 L Albumin 2.4 L Globulin 2.8 Albumin/Globulin Ratio 0.9 L Triglycerides 149 Cholesterol 128 LDL Cholesterol Direct 69 HDL Cholesterol 30 Stool Occult Blood Vancomycin Trough Blood Type Antibody Screen 10/19/17 10/19/17 10/19/17 08:34 09:55 11:28 WBC RBC Hgb Hct MCV MCH MCHC RDW Plt Count MPV Neut % (Auto) Lymph % (Auto) [place] % (Auto) Eos % (Auto) Baso % (Auto) Neut # (Auto) Lymph # (Auto) [place] # (Auto) Eos # (Auto) Baso # (Auto) PT INR APTT Sodium Potassium Chloride Carbon Dioxide Anion Gap BUN Creatinine Est GFR ( Amer) Est GFR (Non-Af Amer) POC Glucose (mg/dL) 201 H 180 H Random Glucose Calcium Phosphorus Magnesium Total Bilirubin AST ALT Alkaline Phosphatase Total Protein Albumin Globulin Albumin/Globulin Ratio Triglycerides Cholesterol LDL Cholesterol Direct HDL Cholesterol Stool Occult Blood Vancomycin Trough 9.3 Blood Type Antibody Screen 10/19/17 15:38 WBC RBC Hgb Hct MCV MCH MCHC RDW Plt Count MPV Neut % (Auto) Lymph % (Auto) [place] % (Auto) Eos % (Auto) Baso % (Auto) Neut # (Auto) Lymph # (Auto) [place] # (Auto) Eos # (Auto) Baso # (Auto) PT INR APTT Sodium Potassium Chloride Carbon Dioxide Anion Gap BUN Creatinine Est GFR ( Amer) Est GFR (Non-Af Amer) POC Glucose (mg/dL) 203 H Random Glucose Calcium Phosphorus Magnesium Total Bilirubin AST ALT Alkaline Phosphatase Total Protein Albumin Globulin Albumin/Globulin Ratio Triglycerides Cholesterol LDL Cholesterol Direct HDL Cholesterol Stool Occult Blood Vancomycin Trough Blood Type Antibody Screen EKG/Cardiology Studies: Cardiology / EKG Studies 10/19/17 14:49 EKG [ELECTROCARDIOGRAM] Stat Comment: Mode Of Transportation: Reason For Exam: tachycardia Isolation: Contact Critical Care Progress Note - Nutrition Nutrition: Nutrition Category Date Time Status NPO Diet [DIET] Diets 10/19/17 Breakfast Active Assessment/Plan - Assessment and Plan (Free Text) Assessment: Above patient seen and examined at bedside with ICU team. 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 -NPO for colonoscopy -continue abx tristian-colonoscopy -post colonoscopy obtain input from Gi regarding timing to restart anticoagulation -possible bleeding scan. -serial cbc, monitor hemodynamics Patient not on pressors. -continue to monitor
--- NOTE | 2017-10-19 10:32 | RAD ---
HISTORY: f/u r/o chf COMPARISON: Portable chest 10/14/2017. FINDINGS: LUNGS: Sternotomy wires and prosthetic cardiac valve again identified with cardiac size remaining borderline enlarged. No pulmonary vascular derangement appreciated. No infiltrate bilaterally. No pneumothorax or pleural effusion bilaterally either. PLEURA: As above. CARDIOVASCULAR: As above. OSSEOUS STRUCTURES: No significant abnormalities. VISUALIZED UPPER ABDOMEN: Normal. OTHER FINDINGS: None. IMPRESSION: No interval acute cardiopulmonary disease appreciated. Stable borderline cardiomegaly. No pulmonary vascular derangement.
--- NOTE | 2017-10-19 10:41 | CP.PCM.PN ---
Subjective - Date & Time of Evaluation Date of Evaluation: 10/19/17 Time of Evaluation: 08:00 - Subjective Subjective: Podiatry Progress Note- Dr. Bhat 57 yo female pt seen at the bedside in ICU this morning for gangrenous L 1st hallux with underlying OM. Of note, pt has developed a lower GI bleed which is being worked up and is for colonoscopy today. Pt does complain of slight pain to her left great toe today. She denies f/n/v/c/sob/cp at this time. Offers no other pedal complaints. Objective - Vital Signs/Intake and Output Vital Signs (last 24 hours): Temp Pulse Resp BP Pulse Ox 98.6 F 99 H 18 142/60 98 10/19/17 10:15 10/19/17 10:15 10/19/17 10:15 10/19/17 10:15 10/19/17 09:54 Intake and Output: 10/19/17 10/19/17 06:59 18:59 Intake Total 2230 210 Output Total 1850 Balance 380 210 - Medications Medications: Current Medications Amlodipine Besylate (Norvasc) 10 mg PO DAILY [facility] Last Admin: 10/18/17 09:28 Dose: Not Given Aspirin (Aspirin Chewable) 81 mg PO DAILY [facility] Last Admin: 10/17/17 09:08 Dose: 81 mg Clopidogrel Bisulfate (Plavix) 75 mg PO DAILY [facility] Last Admin: 10/17/17 09:09 Dose: 75 mg Folic Acid (Folic Acid) 1 mg PO DAILY [facility] Last Admin: 10/18/17 09:23 Dose: 1 mg Vancomycin/Sodium Chloride (Vancomycin 1 Gm/Ns 200 Ml) 1 gm in 200 mls @ 166.7 mls/hr IVPB Q24H [facility] PRN Reason: Protocol Stop: 10/23/17 10:01 Last Admin: 10/18/17 11:00 Dose: 166.7 mls/hr Pantoprazole Sodium 80 mg/ (Sodium Chloride) 100 mls @ 10 mls/hr IVP .Q10H [facility] PRN Reason: 8 MG/HR Last Admin: 10/19/17 06:10 Dose: 10 mls/hr Sodium Chloride (Sodium Chloride 0.9%) 1,000 mls @ 60 mls/hr IV .[id number] [facility] Last Admin: 10/19/17 00:00 Dose: 60 mls/hr Insulin Aspart (Novolog) 0 unit SC Q4H [facility] PRN Reason: Protocol Last Admin: 10/19/17 08:58 Dose: 2 unit Morphine Sulfate (Morphine) 2 mg IVP Q4 PRN PRN Reason: Pain, severe (8-10) Last Admin: 10/18/17 11:31 Dose: 2 mg Phenytoin (Dilantin) 100 mg IVP Q8H [facility] Last Admin: 10/19/17 04:35 Dose: 100 mg - Labs Labs: 10/19/17 06:15 10/19/17 06:15 PT 12.3 SECONDS (9.7-12.2) H 10/19/17 01:13 INR 1.1 10/19/17 01:13 APTT 27 SECONDS (21-34) D 10/19/17 01:13 - Constitutional Appears: Non-toxic, No Acute Distress - Extremities Exam Extremities Exam: absent: Calf Tenderness Additional comments: LLE focused: dressing to left foot appears c,d,i Vasc: DP and PT pulses are nonpalpable, skin temp runs cool to cool (proximal to distal) lower extremities cool to cool Ortho: slight pain with palpation to the left hallux and surrounding periwound, MM is 4/5 in all four compartments consistent with age Neuro: gross sensation intact bilaterally, protective sensation diminished Derm: Dry gangrene noted to the distal left hallux to the level of the IPJ with nail plate absent from nail bed, wound base is 100% necrotic and gangrenous, distal mummification with demarcating process noted, no active purulent drainage noted or expressed, no malodor, no appreciable erythema or streaking, no probe to bone, no tunneling, no undermining. No other grossly ischemic changes appreciated to b/l feet - Neurological Exam Neurological Exam: Alert, Awake, Oriented x3 - Psychiatric Exam Psychiatric exam: Normal Affect, Normal Mood Assessment and Plan - Assessment and Plan (Free Text) Assessment: 57 y.o female w/ gangrenous left 1st hallux with underlying OM Plan: Patient S/E at bedside Plan discussed with attending, Dr. Bhat Charts, labs, vitals reviewed: afebrile, no leukocytosis c/w IV abx, pain meds as per primary CT angio: -Right- short segment moderate stenosis prox SFA w/ long segment severe stenosis of the mid/distal SFA stent. Mild tandem stenosis of right popliteal. Markedly limited evaluation of below knee arteries due to heavy arterial wall calcification -Left- short segment moderate stenosis of prox SFA. Patent indwelling mid/ distal SFA stent. Mild tandem stenoses of the superficial femoral and popliteal artery. Markedly limited eval of anterior tibial and peroneal arteries due to heavy arterial wall calcification Per vascular no intervention at this time f/u GI recs left hallux dressed with betadine + DSD Podiatry will follow
[2017-10-19] MEDS ORDERED: Propofol 10 mg/ml Inj (20 ML) ONE ×3 (14:29→14:57)
[2017-10-19] MEDS ORDERED: Lactated Ringer's 500 ML IV ONE ×2 (14:33)
[2017-10-19] MEDS: Morphine 4 MG/ML VIAL IVP PRN (15:33)
[2017-10-19] MEDS: Pantoprazole 80 MG in Sodium Chloride 0.9% 100 ML IVPB SCH (16:00)
[2017-10-19] MEDS: Sodium Chloride 0.9% 1,000 ML IV SCH ×3 (16:40→20:30)
[2017-10-19] MEDS: Vancomycin 1 gm/NS 200 ml 1 GM/200 ML BAG IVPB SCH (18:16)
--- NOTE | 2017-10-19 18:25 | NM ---
PROCEDURE: Nuclear medicine gastrointestinal bleeding scan. November very pacs 1 HISTORY: rectal bleeding, anemia COMPARISON: None available. TECHNIQUE: 4 cc of patient blood was withdrawn and mixed with 21 mCi of technetium ultra tagged. Images of the abdomen and pelvis were obtained in the anterior and posterior projection at 1 min intervals over a period of 45 min. FINDINGS: Focus of activity in the left hemipelvis indicative of an acute gastrointestinal hemorrhage. This resides either it in redundant sigmoid colon or less likely pelvic loops of small bowel. This is based on the lateral views. Physiologic activity was seen in the heart, liver, spleen and blood vessels. IMPRESSION: Positive examination. Acute gastrointestinal hemorrhage. Movement of radionuclide within the lumen of either pelvic loop of small bowel wall or, more likely based on the lateral view, redundant sigmoid colon.
--- NOTE | 2017-10-19 19:04 | CP.PCM.PN ---
Subjective - Date & Time of Evaluation Date of Evaluation: 10/19/17 Time of Evaluation: 19:01 - Subjective Subjective: General surgery progress note for Dr. Espinoza More, PGY-1 Pt S & E at bedside. Per ICU, general surgery re-consulted for GI bleed. Pt with multiple episodes of BRBPR, taken for EGD and Colonoscopy with GI, findings positive for GI bleeding, inability to localize bleeding site. Bleeding scan positive for redundant sigmoid vs. small bowel bleed. Per ICU nurse- pt has required 5 units pRBCs over last 6 days. Pt reports no BM since prior to colonoscopy. Denies N & V, F & C, ab pain, other complaints. Objective - Vital Signs/Intake and Output Vital Signs (last 24 hours): Temp Pulse Resp BP Pulse Ox 98.5 F 93 H 21 157/68 H 100 10/19/17 14:22 10/19/17 14:35 10/19/17 14:35 10/19/17 14:35 10/19/17 14:35 Intake and Output: 10/19/17 10/20/17 18:59 06:59 Intake Total 1050 Output Total 300 Balance 750 - Medications Medications: Current Medications Amlodipine Besylate (Norvasc) 10 mg PO DAILY [facility] Last Admin: 10/19/17 10:00 Dose: Not Given Aspirin (Aspirin Chewable) 81 mg PO DAILY [facility] Last Admin: 10/17/17 09:08 Dose: 81 mg Clopidogrel Bisulfate (Plavix) 75 mg PO DAILY [facility] Last Admin: 10/17/17 09:09 Dose: 75 mg Folic Acid (Folic Acid) 1 mg PO DAILY [facility] Last Admin: 10/19/17 09:20 Dose: Not Given Sodium Chloride (Sodium Chloride 0.9%) 1,000 mls @ 60 mls/hr IV .[id number] [facility] Last Admin: 10/19/17 00:00 Dose: 60 mls/hr Vancomycin/Sodium Chloride (Vancomycin 1 Gm/Ns 200 Ml) 1 gm in 200 mls @ 166.7 mls/hr IVPB Q24H [facility] PRN Reason: Protocol Stop: 10/24/17 18:01 Last Admin: 10/19/17 18:16 Dose: 166.7 mls/hr Pantoprazole Sodium 80 mg/ (Sodium Chloride) 100 mls @ 10 mls/hr IVPB .Q10H [facility] PRN Reason: 8 MG/HR Last Admin: 10/19/17 16:00 Dose: 10 mls/hr Insulin Aspart (Novolog) 0 unit SC Q4H [facility] PRN Reason: Protocol Last Admin: 10/19/17 18:23 Dose: 2 unit Morphine Sulfate (Morphine) 2 mg IVP Q4 PRN PRN Reason: Pain, severe (8-10) Last Admin: 10/19/17 15:33 Dose: 2 mg Phenytoin (Dilantin) 100 mg IVP Q8H [facility] Last Admin: 10/19/17 12:20 Dose: 100 mg - Labs Labs: 10/19/17 06:15 10/19/17 06:15 PT 12.3 SECONDS (9.7-12.2) H 10/19/17 01:13 INR 1.1 10/19/17 01:13 APTT 27 SECONDS (21-34) D 10/19/17 01:13 - Constitutional Appears: Non-toxic, No Acute Distress - Head Exam Head Exam: ATRAUMATIC, NORMAL INSPECTION, NORMOCEPHALIC - Eye Exam Eye Exam: EOMI, Normal appearance - ENT Exam ENT Exam: Mucous Membranes Moist, Normal Exam - Neck Exam Neck Exam: Full ROM, Normal Inspection - Respiratory Exam Respiratory Exam: NORMAL BREATHING PATTERN - Cardiovascular Exam Cardiovascular Exam: REGULAR RHYTHM, +S1, +S2 - GI/Abdominal Exam GI & Abdominal Exam: Soft. absent: Distended, Firm, Guarding, Rigid, Tenderness - Rectal Exam Rectal Exam: Deferred - Extremities Exam Extremities Exam: absent: Normal Inspection (Left foot with dressing in place- clean/dry/intact) - Neurological Exam Neurological Exam: Alert, Awake, CN II-XII Intact, Oriented x3 - Psychiatric Exam Psychiatric exam: Normal Affect, Normal Mood - Skin Skin Exam: Dry, Intact, Normal Color, Warm Assessment and Plan - Assessment and Plan (Free Text) Assessment: 57F w/GI bleed Plan: CTA neg for acute GI bleed AC reversed NPO Cont PPI drip Further recs pending attending evaluation DW attending Argenis, PGY-1
[2017-10-19] MEDS: Piperacill/Tazo 3.375gm in Dex 3.375 GM/50 ML BAG IVPB SCH (20:30)
[2017-10-19 20:51] LABS: MEAN CELL VOLUME 86.1 fL (81.0-99.0); MEAN CORPUSCULAR HEMOGLOBIN 29.1 pg (27.0-31.0); MEAN CORPUSCULAR HGB CONC 33.8 g/dL (33.0-37.0); MEAN PLATELET VOLUME 8.2 fL (7.2-11.7); RBC 3.38 Mil/uL (3.80-5.20); RED CELL DISTRIBUTION WIDTH 15.9 % (11.5-14.5); WHITE BLOOD COUNT 9.8 K/uL (4.8-10.8)
[2017-10-19 20:56] LABS: HEMOGLOBIN 9.8 g/dL (11.0-16.0)
--- NOTE | 2017-10-19 21:16 | CT ---
EXAM: CT Abdomen and Pelvis With Intravenous Contrast EXAM DATE/TIME: Exam ordered 10/19/2017 7:38 PM CLINICAL HISTORY: 57 years old, female; Condition or disease; Other: Gi bleed; Additional info: Ongoing rectal bleeding TECHNIQUE: Axial computed tomography images of the abdomen and pelvis with intravenous contrast during the arterial phase of enhancement. All CT scans at this facility use one or more dose reduction techniques, viz.: automated exposure control; ma/kV adjustment per patient size (including targeted exams where dose is matched to indication; i.e. head); or iterative reconstruction technique. Coronal and sagittal reformatted images were created and reviewed. CONTRAST: 100 mL of visipaque 320 administered intravenously. COMPARISON: CT - ANGIOGRAPHY ABD ILEOFEM RUNOFF 2017-10-16 17:18 FINDINGS: VASCULATURE: Aorta: No acute findings. No aortic aneurysm. No dissection. Pulmonary arteries: Unremarkable as visualized. No pulmonary embolism is identified. Great vessels of aortic arch: No acute findings. No dissection. No arterial occlusion or significant stenosis. Celiac trunk and mesenteric arteries: No acute findings. No occlusion or significant stenosis. Renal arteries: No acute findings. No occlusion or significant stenosis. Iliac arteries: No acute findings. No occlusion or significant stenosis. CHEST: Lungs: Discoid atelectasis or scar is seen in the right middle lobe. Hypoventilatory changes are noted in the dependent portion of both lung bases, left side greater than right. Pleural space: Unremarkable. No significant effusion. No pneumothorax. Heart: The heart is moderately enlarged. A valvular prosthesis is noted in the region of the mitral valve. No significant pericardial effusion. Mediastinum: There is a small hiatal hernia. ABDOMEN: Liver: Unremarkable. No mass. Gallbladder and bile ducts: Unremarkable. No calcified stones. No ductal dilation. Pancreas: Unremarkable. No ductal dilation. No mass. Spleen: Unremarkable. No splenomegaly. Adrenals: Unremarkable. No mass. Kidneys and ureters: Calcifications are noted in the susy of both kidneys which appear to be vascular in nature.. Stomach and bowel: Scattered colonic diverticula. No obstruction. No mucosal thickening. Appendix: No findings to suggest acute appendicitis. PELVIS: Bladder: Unremarkable. No mass. Reproductive: Dense calcifications are noted in the uterus consistent with fibroid formation. ABDOMEN and PELVIS: Intraperitoneal space: Unremarkable. No significant fluid collection. No free air. Bones/joints: No acute fracture. No dislocation. Soft tissues: Unremarkable. Lymph nodes: Unremarkable. No enlarged lymph nodes. IMPRESSION: 1. No evidence of acute GI bleed. 2. Scattered colonic diverticula. 3. Small hiatal hernia. 4. Calcified uterine fibroids. 5. Cardiomegaly
--- NOTE | 2017-10-19 23:23 | CP.PCM.PN ---
Subjective - Date & Time of Evaluation Date of Evaluation: 10/19/17 Time of Evaluation: 18:00 - Subjective Subjective: Pt seen and examined at bedside, afebrile, more alert, in ICU, bleeding from small intestine, off heparin, surgical consult has been vcalled, pt is being transfused, most likely need surgical resection of small bowel Objective - Vital Signs/Intake and Output Vital Signs (last 24 hours): Temp Pulse Resp BP Pulse Ox 97.8 F 78 17 127/50 L 99 10/19/17 16:40 10/19/17 22:00 10/19/17 22:00 10/19/17 21:33 10/19/17 22:00 Intake and Output: 10/19/17 10/20/17 18:59 06:59 Intake Total 1715 210 Output Total 780 Balance 935 210 - Medications Medications: Current Medications Amlodipine Besylate (Norvasc) 10 mg PO DAILY [facility] Last Admin: 10/19/17 10:00 Dose: Not Given Aspirin (Aspirin Chewable) 81 mg PO DAILY [facility] Last Admin: 10/17/17 09:08 Dose: 81 mg Clopidogrel Bisulfate (Plavix) 75 mg PO DAILY [facility] Last Admin: 10/17/17 09:09 Dose: 75 mg Folic Acid (Folic Acid) 1 mg PO DAILY [facility] Last Admin: 10/19/17 09:20 Dose: Not Given Sodium Chloride (Sodium Chloride 0.9%) 1,000 mls @ 60 mls/hr IV .[id number] [facility] Last Admin: 10/19/17 20:30 Dose: 60 mls/hr Vancomycin/Sodium Chloride (Vancomycin 1 Gm/Ns 200 Ml) 1 gm in 200 mls @ 166.7 mls/hr IVPB Q24H [facility] PRN Reason: Protocol Stop: 10/24/17 18:01 Last Admin: 10/19/17 18:16 Dose: 166.7 mls/hr Pantoprazole Sodium 80 mg/ (Sodium Chloride) 100 mls @ 10 mls/hr IVPB .Q10H [facility] PRN Reason: 8 MG/HR Last Admin: 10/19/17 16:00 Dose: 10 mls/hr Piperacillin Sod/Tazobactam Sod (Zosyn 3.375 Gm Iv Premix) 3.375 gm in 50 mls @ 100 mls/hr IVPB Q6H [facility] PRN Reason: Protocol Last Admin: 10/19/17 20:30 Dose: 100 mls/hr Insulin Aspart (Novolog) 0 unit SC Q6H [facility] PRN Reason: Protocol Morphine Sulfate (Morphine) 2 mg IVP Q4 PRN PRN Reason: Pain, severe (8-10) Last Admin: 10/19/17 15:33 Dose: 2 mg Phenytoin (Dilantin) 100 mg IVP Q8H [facility] Last Admin: 10/19/17 20:10 Dose: 100 mg - Labs Labs: 10/19/17 20:42 10/19/17 06:15 PT 12.3 SECONDS (9.7-12.2) H 10/19/17 01:13 INR 1.1 10/19/17 01:13 APTT 27 SECONDS (21-34) D 10/19/17 01:13 - Constitutional Appears: No Acute Distress - Head Exam Head Exam: ATRAUMATIC, NORMAL INSPECTION, NORMOCEPHALIC - Eye Exam Eye Exam: EOMI, Normal appearance, PERRL Pupil Exam: NORMAL ACCOMODATION, PERRL - Respiratory Exam Respiratory Exam: Clear to Ausculation Bilateral, NORMAL BREATHING PATTERN - Cardiovascular Exam Cardiovascular Exam: Tachycardia, +S1, +S2, Murmur - GI/Abdominal Exam GI & Abdominal Exam: Soft, Normal Bowel Sounds. absent: Tenderness Assessment and Plan (1) Small intestinal hemorrhage requiring more than four units of blood in 24 hours, admission to ICU, or surgery Status: Acute (2) Anemia Status: Acute (3) GI bleed Status: Acute (4) S/P MVR (mitral valve replacement) Status: Acute (5) Toe gangrene Status: Acute (6) Uncontrolled hypertension Status: Acute (7) PVD (peripheral vascular disease) Status: Chronic (8) Uncontrolled diabetes mellitus Status: Chronic
[2017-10-20] MEDS: Piperacill/Tazo 3.375gm in Dex 3.375 GM/50 ML BAG IVPB SCH ×4 (01:00→20:22)
--- NOTE | 2017-10-20 02:21 | CON ---
DATE: CARDIOLOGY CONSULTATION REASON FOR CONSULTATION: Aortic and mitral valve replacement and peripheral vascular disease. HISTORY OF PRESENT ILLNESS: The patient is a 57-year-old -[place] female who underwent mitral and aortic valve replacement in 2008 at [facility] for what she was told was a leaky valve. The patient also has a peripheral vascular disease, underwent multiple stenting to lower extremities. The most recent one was in the left lower extremity 3 weeks ago at [facility] and right lower extremity most recent intervention was in March of last year. The patient presented 5 days ago with possible left big toe gangrene, and during the hospital admission, the patient developed lower GI bleeding and required packed RBC transfusion. The patient's initial hemoglobin and hematocrit on admission were 6.6 and 20.0. Her admitting INR was 1.4. The patient denies any chest pain or shortness of breath. The patient underwent upper endoscopy yesterday which revealed gastric ulcers with clean base and duodenitis and the patient is planned to have colonoscopy today. SOCIAL HISTORY: Nonsmoker. Nondrinker. The patient has no children. She is . MEDICATIONS: The patient's current medications are aspirin 81 mg once a day, 100 mg every 8 hours, folic acid 1 mg once a day, morphine sulfate 2 mg intravenously every 4 hours p.r.n., Norvasc 10 mg once a day, Protonix 80 mg IV push every 8 hours, Plavix 75 mg once a day, is currently on hold for the past two days, vancomycin 1 gm intravenously daily, and normal saline at 60 mL an hour. REVIEW OF SYSTEMS: The patient denies any hematemesis. She denies any dizziness or syncope. PHYSICAL EXAMINATION: GENERAL: The patient is a middle-age female who does not appear to be in acute distress. VITAL SIGNS: Blood pressure 157/68, heart rate 93, temperature 98.5, respirations 21. HEENT: Pale conjunctivae. CHEST: Clear. HEART: S1, S2 regular. ABDOMEN: Soft. EXTREMITIES: Dressings applied to the left forefoot. LABORATORY DATA: Today's hemoglobin and hematocrit 7.3 and 21.5; white count and platelet count are within normal limit. Today's PTT is 69. SMA-7, sodium 139, potassium 4.2, chloride 108, CO2 of 17, glucose 207, BUN 15, creatinine 1.0. Echocardiographic study revealed mild to moderate concentric LVH with normal ejection fraction, mild dilated left atrium, prosthetic mitral and aortic valves appear normal. Chest x-ray performed today revealed borderline cardiomegaly with prominent bronchovascular markings. Lower extremity ultrasound revealed the right ankle pressure index of the right lower extremity is nondiagnostic due to possible arterial wall calcification. The ankle pressure index of the left lower extremity is nondiagnostic due to possible arterial wall calcification. Abdominal angiography revealed right lower extremity showed a short segment moderate stenosis of the proximal superficial femoral artery with long segment of severe stenosis of the mid/distal superficial femoral artery, proximal to within the indwelling stent. Left lower extremity showed segment of moderate stenosis of the proximal superficial femoral artery. Patent indwelling mid/superficial femoral artery stent. Patent left posterior tibial artery. Moderately elevated evaluation of the anterior tibial and peroneal arteries due to aortic calcification. Left foot first digit distal soft tissue defect. ASSESSMENT: 1. 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 2. Bilateral peripheral vascular disease, status post left lower extremity stent 3 weeks ago. 3. Rule out left big toe gangrenous changes. 4. Diabetes mellitus. 5. History of seizure disorder. RECOMMENDATIONS: Both antiplatelet, aspirin and Plavix, are on hold for now. Continue intravenous vancomycin intravenously 1 gm daily, intravenous Protonix 60 mg intravenously every 8 hours. Continue oral Dilantin therapy. The patient can undergo colonoscopy from the cardiac point of view. I will obtain 12-lead EKG. Resumption of anticoagulation will be discussed with the senior medical transcriptionist after the completion of colonoscopy. Kraig Sheldon MD
[2017-10-20] MEDS: Pantoprazole 80 MG in Sodium Chloride 0.9% 100 ML IVPB SCH ×2 (04:00→17:14)
[2017-10-20] MEDS: Phenytoin 100 mg/2 ml Inj IVP SCH ×3 (05:00→20:22)
[2017-10-20] MEDS: (Novolog) Insulin Aspart, Recombinant 100 u/ml 10 ml vial SC SCH ×4 (06:45→17:43)
[2017-10-20 06:46] LABS: BASO # 0.1 K/uL (0.0-0.2); BASO % 0.8 % (0.0-2.0); EOS # 0.3 K/uL (0.0-0.7); HEMOGLOBIN 8.7 g/dL (11.0-16.0); LYMPH # 1.6 K/uL (1.0-4.3); LYMPH % 17.1 % (20.0-40.0); MEAN CELL VOLUME 86.8 fL (81.0-99.0); MEAN CORPUSCULAR HEMOGLOBIN 29.2 pg (27.0-31.0); MEAN CORPUSCULAR HGB CONC 33.7 g/dL (33.0-37.0); MEAN PLATELET VOLUME 8.1 fL (7.2-11.7); MONO # 0.6 K/uL (0.0-0.8); MONO % 6.2 % (0.0-10.0); NEUT # 6.8 K/uL (1.8-7.0); NEUT % 72.9 % (50.0-75.0); NRBC % 0.2 % (0.0-2.0); RBC 2.99 Mil/uL (3.80-5.20); RED CELL DISTRIBUTION WIDTH 15.8 % (11.5-14.5); WHITE BLOOD COUNT 9.3 K/uL (4.8-10.8)
[2017-10-20 07:02] LABS: ALB/GLOB RATIO 0.8 (1.0-2.1); ALBUMIN 2.5 g/dL (3.5-5.0); ALT/SGPT 13 U/L (9-52); AST/SGOT 24 U/L (14-36); BLOOD UREA NITROGEN 9 mg/dL (7-17); GFR AFRICAN-AMERICAN > 60; GFR NON-AFRICAN AMERICAN > 60
--- NOTE | 2017-10-20 07:23 | CP.PCM.PN ---
<AliciamarkValentino apple - Last Filed: 10/20/17 08:21> Subjective - Date & Time of Evaluation Date of Evaluation: 10/20/17 Time of Evaluation: 07:00 - Subjective Subjective: PGY5 GI Fellow Progress Note Patient seen and examined bedside this morning. Two days ago the patient developed melanotic stool two days ago and was taken for urgent endoscopy which revealed multiple nonbleeding erosions. Yesterday patient continued to drop her HGB and had ongoing melena with occasional episodes of fresh blood per rectum. Colonoscopy showed gross blood throughout colon as well as terminal ileum. Has been transfused 5 units thusfar and HGB improved to 9.8 yesterday, dropping again to 8.7 today. She denies any further episodes of melena/hematochezia overnight. Denies dizziness, lightheadedness, nausea, vomiting, abdominal pain, fever, chills. 12 system ROS performed and negative except where stated. Objective - Vital Signs/Intake and Output Vital Signs (last 24 hours): Temp Pulse Resp BP Pulse Ox 98.6 F 93 H 17 132/58 L 97 10/20/17 04:00 10/20/17 06:00 10/20/17 06:00 10/20/17 05:33 10/20/17 06:00 Intake and Output: 10/20/17 10/20/17 06:59 18:59 Intake Total 770 Output Total 850 Balance -80 - Medications Medications: Current Medications Amlodipine Besylate (Norvasc) 10 mg PO DAILY [facility] Last Admin: 10/19/17 10:00 Dose: Not Given Aspirin (Aspirin Chewable) 81 mg PO DAILY [facility] Last Admin: 10/17/17 09:08 Dose: 81 mg Clopidogrel Bisulfate (Plavix) 75 mg PO DAILY [facility] Last Admin: 10/17/17 09:09 Dose: 75 mg Folic Acid (Folic Acid) 1 mg PO DAILY [facility] Last Admin: 10/19/17 09:20 Dose: Not Given Sodium Chloride (Sodium Chloride 0.9%) 1,000 mls @ 60 mls/hr IV .[id number] [facility] Last Admin: 10/19/17 20:30 Dose: 60 mls/hr Vancomycin/Sodium Chloride (Vancomycin 1 Gm/Ns 200 Ml) 1 gm in 200 mls @ 166.7 mls/hr IVPB Q24H [facility] PRN Reason: Protocol Stop: 10/24/17 18:01 Last Admin: 10/19/17 18:16 Dose: 166.7 mls/hr Pantoprazole Sodium 80 mg/ (Sodium Chloride) 100 mls @ 10 mls/hr IVPB .Q10H [facility] PRN Reason: 8 MG/HR Last Admin: 10/20/17 04:00 Dose: 10 mls/hr Piperacillin Sod/Tazobactam Sod (Zosyn 3.375 Gm Iv Premix) 3.375 gm in 50 mls @ 100 mls/hr IVPB Q6H [facility] PRN Reason: Protocol Last Admin: 10/20/17 01:00 Dose: 100 mls/hr Insulin Aspart (Novolog) 0 unit SC Q6H [facility] PRN Reason: Protocol Last Admin: 10/20/17 06:45 Dose: Not Given Morphine Sulfate (Morphine) 2 mg IVP Q4 PRN PRN Reason: Pain, severe (8-10) Last Admin: 10/19/17 15:33 Dose: 2 mg Phenytoin (Dilantin) 100 mg IVP Q8H [facility] Last Admin: 10/20/17 05:00 Dose: 100 mg - Labs Labs: 10/20/17 06:42 10/20/17 06:42 PT 12.3 SECONDS (9.7-12.2) H 10/19/17 01:13 INR 1.1 10/19/17 01:13 APTT 27 SECONDS (21-34) D 10/19/17 01:13 - Constitutional Appears: No Acute Distress - Eye Exam Eye Exam: EOMI, PERRL - ENT Exam ENT Exam: Mucous Membranes Moist - Respiratory Exam Respiratory Exam: Clear to Ausculation Bilateral. absent: Rales, Rhonchi, Wheezes - Cardiovascular Exam Cardiovascular Exam: RRR, +S1, +S2 - GI/Abdominal Exam GI & Abdominal Exam: Soft, Normal Bowel Sounds. absent: Distended, Firm, Guarding, Rigid, Tenderness, Organomegaly - Extremities Exam Additional comments: left 1st toe gangrenous, dressings intact - Neurological Exam Neurological Exam: Alert, Awake, Oriented x3 - Psychiatric Exam Psychiatric exam: Normal Affect, Normal Mood - Skin Skin Exam: Dry, Warm Assessment and Plan - Assessment and Plan (Free Text) Assessment: Patient is a 57yo female with history of peripheral vascular disease and concern for left great toe gangrene, CAD, anemia who presented to the ED referred by her mix mill tender for concern of osteomyelitis. Our service is consulted for anemia. -Acute blood loss anemia -GI hemorrhage -CAD -PVD -Left 1st toe gangrene -H/O mitral/aortic mechanical valves Plan: -S/P EGD and colonoscopy -Bleeding scan positive yesterday evening with negative CTA -Discussed case with IR, prefer conservative therapy at this time in light of negative CTA -Surgical service following -Continue transfusion support at this time -Liquid diet OK from GI standpoint -Consider Push enteroscopy and repeat colonoscopy with adequate prep on Monday if ongoing anemia/blood loss <Hannah,Bradley - Last Filed: 10/20/17 08:27> Objective - Vital Signs/Intake and Output Vital Signs (last 24 hours): Temp Pulse Resp BP Pulse Ox 98.6 F 93 H 17 132/58 L 97 10/20/17 04:00 10/20/17 06:00 10/20/17 06:00 10/20/17 05:33 10/20/17 06:00 Intake and Output: 10/20/17 10/20/17 06:59 18:59 Intake Total 770 Output Total 850 Balance -80 - Medications Medications: Current Medications Amlodipine Besylate (Norvasc) 10 mg PO DAILY [facility] Last Admin: 10/19/17 10:00 Dose: Not Given Aspirin (Aspirin Chewable) 81 mg PO DAILY [facility] Last Admin: 10/17/17 09:08 Dose: 81 mg Clopidogrel Bisulfate (Plavix) 75 mg PO DAILY [facility] Last Admin: 10/17/17 09:09 Dose: 75 mg Folic Acid (Folic Acid) 1 mg PO DAILY [facility] Last Admin: 10/19/17 09:20 Dose: Not Given Sodium Chloride (Sodium Chloride 0.9%) 1,000 mls @ 60 mls/hr IV .[id number] [facility] Last Admin: 10/19/17 20:30 Dose: 60 mls/hr Vancomycin/Sodium Chloride (Vancomycin 1 Gm/Ns 200 Ml) 1 gm in 200 mls @ 166.7 mls/hr IVPB Q24H [facility] PRN Reason: Protocol Stop: 10/24/17 18:01 Last Admin: 10/19/17 18:16 Dose: 166.7 mls/hr Pantoprazole Sodium 80 mg/ (Sodium Chloride) 100 mls @ 10 mls/hr IVPB .Q10H [facility] PRN Reason: 8 MG/HR Last Admin: 10/20/17 04:00 Dose: 10 mls/hr Piperacillin Sod/Tazobactam Sod (Zosyn 3.375 Gm Iv Premix) 3.375 gm in 50 mls @ 100 mls/hr IVPB Q6H [facility] PRN Reason: Protocol Last Admin: 10/20/17 08:01 Dose: 100 mls/hr Insulin Aspart (Novolog) 0 unit SC Q6H [facility] PRN Reason: Protocol Last Admin: 10/20/17 06:45 Dose: Not Given Morphine Sulfate (Morphine) 2 mg IVP Q4 PRN PRN Reason: Pain, severe (8-10) Last Admin: 10/20/17 08:05 Dose: 2 mg Phenytoin (Dilantin) 100 mg IVP Q8H [facility] Last Admin: 10/20/17 05:00 Dose: 100 mg - Labs Labs: 10/20/17 06:42 10/20/17 06:42 PT 12.3 SECONDS (9.7-12.2) H 10/19/17 01:13 INR 1.1 10/19/17 01:13 APTT 27 SECONDS (21-34) D 10/19/17 01:13 Attending/Attestation - Attestation I have personally seen and examined this patient.: Yes I have fully participated in the care of the patient.: Yes I have reviewed all pertinent clinical information, including history, physical exam and plan: Yes Notes (Text): 10/20/17 08:25 57 year old female with history of PVD, Gangrene in L toe, CAD, Anemia, mechanical valve on anticoagulation also with GI bleeding of uncertain etiology. Monitor for recurrent bleeding. Consider repeat colonoscopy with better prep if she remains stable. If acute bleeding develops, would recommend IR angio. Transfuse as needed. Hold anticoagulation until bleeding has stopped and she is stable. Continue ppi for PUD. DDx includes diverticular bleeding, AVMs, or SB source. If she remains stable, would recommend outpatient VCE
[2017-10-20] MEDS: Morphine 4 MG/ML VIAL IVP PRN (08:05)
--- NOTE | 2017-10-20 08:53 | CP.PCM.PN ---
Subjective - Date & Time of Evaluation Date of Evaluation: 10/20/17 Time of Evaluation: 06:50 - Subjective Subjective: Pt seen and examined this AM. No adverse events overnight. Patient denies any abdominal pain or bowel movements overnight. Patient complains of pain in left toe that is unchanged. Objective - Vital Signs/Intake and Output Vital Signs (last 24 hours): Temp Pulse Resp BP Pulse Ox 98.6 F 93 H 17 132/58 L 97 10/20/17 04:00 10/20/17 06:00 10/20/17 06:00 10/20/17 05:33 10/20/17 06:00 Intake and Output: 10/20/17 10/20/17 06:59 18:59 Intake Total 770 Output Total 850 Balance -80 - Medications Medications: Current Medications Amlodipine Besylate (Norvasc) 10 mg PO DAILY [facility] Last Admin: 10/19/17 10:00 Dose: Not Given Aspirin (Aspirin Chewable) 81 mg PO DAILY [facility] Last Admin: 10/17/17 09:08 Dose: 81 mg Clopidogrel Bisulfate (Plavix) 75 mg PO DAILY [facility] Last Admin: 10/17/17 09:09 Dose: 75 mg Folic Acid (Folic Acid) 1 mg PO DAILY [facility] Last Admin: 10/19/17 09:20 Dose: Not Given Sodium Chloride (Sodium Chloride 0.9%) 1,000 mls @ 60 mls/hr IV .[id number] [facility] Last Admin: 10/19/17 20:30 Dose: 60 mls/hr Vancomycin/Sodium Chloride (Vancomycin 1 Gm/Ns 200 Ml) 1 gm in 200 mls @ 166.7 mls/hr IVPB Q24H [facility] PRN Reason: Protocol Stop: 10/24/17 18:01 Last Admin: 10/19/17 18:16 Dose: 166.7 mls/hr Pantoprazole Sodium 80 mg/ (Sodium Chloride) 100 mls @ 10 mls/hr IVPB .Q10H [facility] PRN Reason: 8 MG/HR Last Admin: 10/20/17 04:00 Dose: 10 mls/hr Piperacillin Sod/Tazobactam Sod (Zosyn 3.375 Gm Iv Premix) 3.375 gm in 50 mls @ 100 mls/hr IVPB Q6H [facility] PRN Reason: Protocol Last Admin: 10/20/17 08:01 Dose: 100 mls/hr Magnesium Sulfate/Dextrose (Magnesium Sulfate 1 Gm/100 Ml D5w) 1 gm in 100 mls @ 200 mls/hr IVPB Q30M [facility] Stop: 10/20/17 09:44 Insulin Aspart (Novolog) 0 unit SC Q6H [facility] PRN Reason: Protocol Last Admin: 10/20/17 06:45 Dose: Not Given Morphine Sulfate (Morphine) 2 mg IVP Q4 PRN PRN Reason: Pain, severe (8-10) Last Admin: 10/20/17 08:05 Dose: 2 mg Phenytoin (Dilantin) 100 mg IVP Q8H [facility] Last Admin: 10/20/17 05:00 Dose: 100 mg - Labs Labs: 10/20/17 06:42 10/20/17 06:42 PT 12.3 SECONDS (9.7-12.2) H 10/19/17 01:13 INR 1.1 10/19/17 01:13 APTT 27 SECONDS (21-34) D 10/19/17 01:13 - Constitutional Appears: Non-toxic, No Acute Distress - Head Exam Head Exam: ATRAUMATIC, NORMOCEPHALIC - Eye Exam Eye Exam: Normal appearance. absent: Conjunctival injection, Scleral icterus - ENT Exam ENT Exam: Mucous Membranes Moist, Normal Oropharynx - Respiratory Exam Respiratory Exam: NORMAL BREATHING PATTERN. absent: Accessory Muscle Use, Respiratory Distress - Cardiovascular Exam Cardiovascular Exam: RRR - GI/Abdominal Exam GI & Abdominal Exam: Soft. absent: Distended, Tenderness - Extremities Exam Extremities Exam: absent: Calf Tenderness, Pedal Edema, Tenderness Additional comments: left toe dressing dry and intact with minimal serous drainage - Neurological Exam Neurological Exam: Alert, Awake, Oriented x3 - Psychiatric Exam Psychiatric exam: Normal Affect, Normal Mood - Skin Skin Exam: Dry, Intact, Normal Color, Warm Assessment and Plan - Assessment and Plan (Free Text) Assessment: 57F with anemia with GI bleed and chronich left great toe wound Plan: -bleeding scan showed possible bleed in the small bowel vs redundant sigmoid colon, colonoscopy showed clots and fresh blood throughout entire colon and distal TI--no active site of bleeding identified. CTA of abdomen did not reveal site of bleed. Further surgical planning pending identification of origin of bleeding -Serial H/H monitoring -transfuse as needed -Further srugical planning of the PVD on hold pending resolution of GI bleeding issue -PRN pain medication -Continue to follow up GI recs -Will continue to evaluate Discussed with Dr. Beata Tuttle, [id number]
[2017-10-20] MEDS: Magnesium Sulfate 1 gm in D5W 1 GM/100 ML BAG IVPB SCH ×2 (09:19→09:58)
[2017-10-20] MEDS: Sodium Chloride 0.9% 1,000 ML IV SCH ×2 (10:00→20:25)
[2017-10-20 10:30] LABS: INR 1.1; PROTHROMBIN TIME 11.9 SECONDS (9.7-12.2)
--- NOTE | 2017-10-20 15:36 | CP.CCUPN ---
<Corie Matias - Last Filed: 10/20/17 15:43> CCU Subjective - Physician Review Subjective (Free Text): 10/20/17 09:30 Patient seen and examined at bedside. Per nursing no acute events overnight. Has not had a BM since before colonoscopy. Bleeding scan showed acute GI bleed in redundant sigmoid colon vs small bowel. General surgery consulted. Offers no complaints at this time. CCU Objective - Vital Signs / Intake & Output Vital Signs (Last 4 hours): Vital Signs Temp Pulse Resp BP Pulse Ox 10/20/17 15:00 100 H 11 L 99 10/20/17 14:33 104 H 18 119/51 L 96 10/20/17 14:00 96 H 19 98 10/20/17 13:33 85 17 142/57 L 98 10/20/17 12:33 95 H 16 138/64 96 10/20/17 12:00 98.6 F Intake and Output (Last 8hrs): Intake & Output 10/20/17 10/20/17 10/20/17 06:59 14:59 22:59 Intake Total 560 740 70 Output Total 850 300 Balance -290 440 70 Weight 83 kg Intake: Intake, IV Amount 560 740 70 Right Antecubital 480 660 60 Right Antecubital Y Port 80 80 10 Output: Urine 850 300 Urine, Voided 850 300 Other: # Voids Urine, Voided 3 1 - Physical Exam Head: Positive for: Atraumatic, Normocephalic Pupils: Positive for: PERRL Extroacular Muscles: Positive for: EOMI Conjunctiva: Positive for: Normal Mouth: Positive for: Moist Mucous Membranes Neck: Positive for: Normal Range of Motion Respiratory/Chest: Positive for: Clear to Auscultation, Good Air Exchange. Negative for: Respiratory Distress, Accessory Muscle Use Cardiovascular: Positive for: Regular Rate and Rhythm, Normal S1, S2. Negative for: Tachycardic Abdomen: Positive for: Normal Bowel Sounds. Negative for: Tenderness, Distention Upper Extremity: Positive for: Normal Inspection Lower Extremity: Positive for: Other (Right toe dressing intact) Skin: Positive for: Warm, Dry, Normal Color Psychiatric: Positive for: Alert, Oriented x 3 - Medications Active Medications: Active Medications Generic Name Dose Route Start Last Admin Trade Name Freq PRN Reason Stop Dose Admin Amlodipine Besylate 10 mg 10/15/17 10:00 10/20/17 09:57 Norvasc PO Not Given DAILY [facility] Aspirin 81 mg 10/15/17 10:00 10/17/17 09:08 Aspirin Chewable PO 81 mg DAILY [facility] Administration Clopidogrel Bisulfate 75 mg 10/15/17 10:00 10/17/17 09:09 Plavix PO 75 mg DAILY [facility] Administration Folic Acid 1 mg 10/15/17 10:00 10/20/17 09:57 Folic Acid PO Not Given DAILY [facility] Sodium Chloride 1,000 mls @ 60 mls/hr 10/19/17 00:00 10/19/17 20:30 Sodium Chloride 0.9% IV 60 mls/hr .[id number] [facility] Administration Vancomycin/Sodium Chloride 1 gm in 200 mls @ 166.7 mls/hr 10/19/17 18:00 12/01 18:16 Vancomycin 1 Gm/Ns 200 Ml IVPB 10/24/17 18:01 166.7 mls/hr Q24H [facility] Administration Protocol Pantoprazole Sodium 80 mg/ 100 mls @ 10 mls/hr 10/19/17 18:30 10/20/17 04:00 Sodium Chloride IVPB 10 mls/hr .Q10H [facility] Administration 8 MG/HR Piperacillin Sod/Tazobactam Sod 3.375 gm in 50 mls @ 100 mls/hr 10/19/17 20: 00 10/20/17 13:15 Zosyn 3.375 Gm Iv Premix IVPB 100 mls/hr Q6H [facility] Administration Protocol Insulin Aspart 0 unit 10/20/17 00:00 10/20/17 12:00 Novolog SC Not Given Q6H [facility] Protocol Morphine Sulfate 2 mg 10/14/17 19:56 10/20/17 08:05 Morphine IVP 2 mg Q4 PRN Administration Pain, severe (8-10) Phenytoin 100 mg 10/18/17 20:45 10/20/17 12:12 Dilantin IVP 100 mg Q8H [facility] Administration - Patient Studies Lab Studies: Microbiology Studies 10/14/17 13:15 Blood Culture - Final Blood NO GROWTH AFTER 5 DAYS Gram Stain - Final TEST NOT PERFORMED 10/14/17 13:30 Blood Culture - Final Blood NO GROWTH AFTER 5 DAYS Gram Stain - Final TEST NOT PERFORMED Lab Studies 10/20/17 10/20/17 10/20/17 Range/Units 11:45 10:05 06:46 WBC (4.8-10.8) K/uL RBC (3.80-5.20) Mil/uL Hgb (11.0-16.0) g/dL Hct (34.0-47.0) % MCV (81.0-99.0) fL MCH (27.0-31.0) pg MCHC (33.0-37.0) g/dL RDW (11.5-14.5) % Plt Count (130-400) K/uL MPV (7.2-11.7) fL Neut % (Auto) (50.0-75.0) % Lymph % (Auto) (20.0-40.0) % [place] % (Auto) (0.0-10.0) % Eos % (Auto) (0.0-4.0) % Baso % (Auto) (0.0-2.0) % Neut # (Auto) (1.8-7.0) K/uL Lymph # (Auto) (1.0-4.3) K/uL [place] # (Auto) (0.0-0.8) K/uL Eos # (Auto) (0.0-0.7) K/uL Baso # (Auto) (0.0-0.2) K/uL PT 11.9 (9.7-12.2) SECONDS INR 1.1 APTT 18 L D (21-34) SECONDS Sodium (132-148) mmol/L Potassium (3.6-5.2) mmol/L Chloride (98-107) mmol/L Carbon Dioxide (22-30) mmol/L Anion Gap (10-20) BUN (7-17) mg/dL Creatinine (0.7-1.2) mg/dL Est GFR ( Amer) Est GFR (Non-Af Amer) POC Glucose (mg/dL) 220 H 171 H (65-110) mg/dL Random Glucose (65-105) mg/dL Calcium (8.6-10.4) mg/dl Phosphorus (2.5-4.5) mg/dL Magnesium (1.6-2.3) mg/dL Total Bilirubin (0.2-1.3) mg/dL AST (14-36) U/L ALT (9-52) U/L Alkaline Phosphatase (38-126) U/L Total Protein (6.3-8.3) g/dL Albumin (3.5-5.0) g/dL Globulin (2.2-3.9) gm/dL Albumin/Globulin Ratio (1.0-2.1) 10/20/17 10/20/17 10/19/17 Range/Units 06:42 06:42 23:07 WBC 9.3 (4.8-10.8) K/uL RBC 2.99 L (3.80-5.20) Mil/uL Hgb 8.7 L (11.0-16.0) g/dL Hct 25.9 L (34.0-47.0) % MCV 86.8 (81.0-99.0) fL MCH 29.2 (27.0-31.0) pg MCHC 33.7 (33.0-37.0) g/dL RDW 15.8 H (11.5-14.5) % Plt Count 233 (130-400) K/uL MPV 8.1 (7.2-11.7) fL Neut % (Auto) 72.9 (50.0-75.0) % Lymph % (Auto) 17.1 L (20.0-40.0) % [place] % (Auto) 6.2 (0.0-10.0) % Eos % (Auto) 3.0 (0.0-4.0) % Baso % (Auto) 0.8 (0.0-2.0) % Neut # (Auto) 6.8 (1.8-7.0) K/uL Lymph # (Auto) 1.6 (1.0-4.3) K/uL [place] # (Auto) 0.6 (0.0-0.8) K/uL Eos # (Auto) 0.3 (0.0-0.7) K/uL Baso # (Auto) 0.1 (0.0-0.2) K/uL PT (9.7-12.2) SECONDS INR APTT (21-34) SECONDS Sodium 141 (132-148) mmol/L Potassium 4.4 (3.6-5.2) mmol/L Chloride 115 H (98-107) mmol/L Carbon Dioxide 17 L (22-30) mmol/L Anion Gap 14 (10-20) BUN 9 (7-17) mg/dL Creatinine 0.9 (0.7-1.2) mg/dL Est GFR ( Amer) > 60 Est GFR (Non-Af Amer) > 60 POC Glucose (mg/dL) 135 H (65-110) mg/dL Random Glucose 165 H (65-105) mg/dL Calcium 8.0 L (8.6-10.4) mg/dl Phosphorus 3.3 (2.5-4.5) mg/dL Magnesium 1.4 L (1.6-2.3) mg/dL Total Bilirubin 0.8 (0.2-1.3) mg/dL AST 24 (14-36) U/L ALT 13 (9-52) U/L Alkaline Phosphatase 96 (38-126) U/L Total Protein 5.5 L (6.3-8.3) g/dL Albumin 2.5 L (3.5-5.0) g/dL Globulin 3.0 (2.2-3.9) gm/dL Albumin/Globulin Ratio 0.8 L (1.0-2.1) 10/19/17 10/19/17 10/19/17 Range/Units 20:42 19:40 18:03 WBC 9.8 (4.8-10.8) K/uL RBC 3.38 L (3.80-5.20) Mil/uL Hgb 9.8 L D (11.0-16.0) g/dL Hct 29.1 L (34.0-47.0) % MCV 86.1 (81.0-99.0) fL MCH 29.1 (27.0-31.0) pg MCHC 33.8 (33.0-37.0) g/dL RDW 15.9 H (11.5-14.5) % Plt Count 264 (130-400) K/uL MPV 8.2 (7.2-11.7) fL Neut % (Auto) (50.0-75.0) % Lymph % (Auto) (20.0-40.0) % [place] % (Auto) (0.0-10.0) % Eos % (Auto) (0.0-4.0) % Baso % (Auto) (0.0-2.0) % Neut # (Auto) (1.8-7.0) K/uL Lymph # (Auto) (1.0-4.3) K/uL [place] # (Auto) (0.0-0.8) K/uL Eos # (Auto) (0.0-0.7) K/uL Baso # (Auto) (0.0-0.2) K/uL PT (9.7-12.2) SECONDS INR APTT (21-34) SECONDS Sodium (132-148) mmol/L Potassium (3.6-5.2) mmol/L Chloride (98-107) mmol/L Carbon Dioxide (22-30) mmol/L Anion Gap (10-20) BUN (7-17) mg/dL Creatinine (0.7-1.2) mg/dL Est GFR ( Amer) Est GFR (Non-Af Amer) POC Glucose (mg/dL) 201 H 203 H (65-110) mg/dL Random Glucose (65-105) mg/dL Calcium (8.6-10.4) mg/dl Phosphorus (2.5-4.5) mg/dL Magnesium (1.6-2.3) mg/dL Total Bilirubin (0.2-1.3) mg/dL AST (14-36) U/L ALT (9-52) U/L Alkaline Phosphatase (38-126) U/L Total Protein (6.3-8.3) g/dL Albumin (3.5-5.0) g/dL Globulin (2.2-3.9) gm/dL Albumin/Globulin Ratio (1.0-2.1) 10/19/17 Range/Units 15:38 WBC (4.8-10.8) K/uL RBC (3.80-5.20) Mil/uL Hgb (11.0-16.0) g/dL Hct (34.0-47.0) % MCV (81.0-99.0) fL MCH (27.0-31.0) pg MCHC (33.0-37.0) g/dL RDW (11.5-14.5) % Plt Count (130-400) K/uL MPV (7.2-11.7) fL Neut % (Auto) (50.0-75.0) % Lymph % (Auto) (20.0-40.0) % [place] % (Auto) (0.0-10.0) % Eos % (Auto) (0.0-4.0) % Baso % (Auto) (0.0-2.0) % Neut # (Auto) (1.8-7.0) K/uL Lymph # (Auto) (1.0-4.3) K/uL [place] # (Auto) (0.0-0.8) K/uL Eos # (Auto) (0.0-0.7) K/uL Baso # (Auto) (0.0-0.2) K/uL PT (9.7-12.2) SECONDS INR APTT (21-34) SECONDS Sodium (132-148) mmol/L Potassium (3.6-5.2) mmol/L Chloride (98-107) mmol/L Carbon Dioxide (22-30) mmol/L Anion Gap (10-20) BUN (7-17) mg/dL Creatinine (0.7-1.2) mg/dL Est GFR ( Amer) Est GFR (Non-Af Amer) POC Glucose (mg/dL) 203 H (65-110) mg/dL Random Glucose (65-105) mg/dL Calcium (8.6-10.4) mg/dl Phosphorus (2.5-4.5) mg/dL Magnesium (1.6-2.3) mg/dL Total Bilirubin (0.2-1.3) mg/dL AST (14-36) U/L ALT (9-52) U/L Alkaline Phosphatase (38-126) U/L Total Protein (6.3-8.3) g/dL Albumin (3.5-5.0) g/dL Globulin (2.2-3.9) gm/dL Albumin/Globulin Ratio (1.0-2.1) Laboratory Results - last 24 hr 10/19/17 10/19/17 10/19/17 15:38 18:03 19:40 WBC RBC Hgb Hct MCV MCH MCHC RDW Plt Count MPV Neut % (Auto) Lymph % (Auto) [place] % (Auto) Eos % (Auto) Baso % (Auto) Neut # (Auto) Lymph # (Auto) [place] # (Auto) Eos # (Auto) Baso # (Auto) PT INR APTT Sodium Potassium Chloride Carbon Dioxide Anion Gap BUN Creatinine Est GFR ( Amer) Est GFR (Non-Af Amer) POC Glucose (mg/dL) 203 H 203 H 201 H Random Glucose Calcium Phosphorus Magnesium Total Bilirubin AST ALT Alkaline Phosphatase Total Protein Albumin Globulin Albumin/Globulin Ratio 10/19/17 10/19/17 10/20/17 20:42 23:07 06:42 WBC 9.8 9.3 RBC 3.38 L 2.99 L Hgb 9.8 L D 8.7 L Hct 29.1 L 25.9 L MCV 86.1 86.8 MCH 29.1 29.2 MCHC 33.8 33.7 RDW 15.9 H 15.8 H Plt Count 264 233 MPV 8.2 8.1 Neut % (Auto) 72.9 Lymph % (Auto) 17.1 L [place] % (Auto) 6.2 Eos % (Auto) 3.0 Baso % (Auto) 0.8 Neut # (Auto) 6.8 Lymph # (Auto) 1.6 [place] # (Auto) 0.6 Eos # (Auto) 0.3 Baso # (Auto) 0.1 PT INR APTT Sodium Potassium Chloride Carbon Dioxide Anion Gap BUN Creatinine Est GFR ( Amer) Est GFR (Non-Af Amer) POC Glucose (mg/dL) 135 H Random Glucose Calcium Phosphorus Magnesium Total Bilirubin AST ALT Alkaline Phosphatase Total Protein Albumin Globulin Albumin/Globulin Ratio 10/20/17 10/20/17 10/20/17 06:42 06:46 10:05 WBC RBC Hgb Hct MCV MCH MCHC RDW Plt Count MPV Neut % (Auto) Lymph % (Auto) [place] % (Auto) Eos % (Auto) Baso % (Auto) Neut # (Auto) Lymph # (Auto) [place] # (Auto) Eos # (Auto) Baso # (Auto) PT 11.9 INR 1.1 APTT 18 L D Sodium 141 Potassium 4.4 Chloride 115 H Carbon Dioxide 17 L Anion Gap 14 BUN 9 Creatinine 0.9 Est GFR ( Amer) > 60 Est GFR (Non-Af Amer) > 60 POC Glucose (mg/dL) 171 H Random Glucose 165 H Calcium 8.0 L Phosphorus 3.3 Magnesium 1.4 L Total Bilirubin 0.8 AST 24 ALT 13 Alkaline Phosphatase 96 Total Protein 5.5 L Albumin 2.5 L Globulin 3.0 Albumin/Globulin Ratio 0.8 L 10/20/17 11:45 WBC RBC Hgb Hct MCV MCH MCHC RDW Plt Count MPV Neut % (Auto) Lymph % (Auto) [place] % (Auto) Eos % (Auto) Baso % (Auto) Neut # (Auto) Lymph # (Auto) [place] # (Auto) Eos # (Auto) Baso # (Auto) PT INR APTT Sodium Potassium Chloride Carbon Dioxide Anion Gap BUN Creatinine Est GFR ( Amer) Est GFR (Non-Af Amer) POC Glucose (mg/dL) 220 H Random Glucose Calcium Phosphorus Magnesium Total Bilirubin AST ALT Alkaline Phosphatase Total Protein Albumin Globulin Albumin/Globulin Ratio EKG/Cardiology Studies: Cardiology / EKG Studies 10/19/17 14:49 EKG [ELECTROCARDIOGRAM] Stat Comment: Mode Of Transportation: Reason For Exam: tachycardia Isolation: Contact Fingerstick Blood Sugar Results: 220 Critical Care Progress Note - Nutrition Nutrition: Nutrition Category Date Time Status NPO Diet [DIET] Diets 10/19/17 Breakfast Active Assessment/Plan - Assessment and Plan (Free Text) Assessment: Patient is a 57 year old female with past medical history of Diabetes, Mechanical aortic/mitral valve, chronic smoker, seizure disorder, PVD presented to the hospital initially for left toe infection. Was started on heparin drip. While on the floor patient started having bloody bowel movements. All anticoagulation on hold. Went for EGD yesterday which showed non-bleeding gastric ulcers and duodenitis. Received a total of 3 units of PRBCs. Transferred to the ICU for further monitoring -Stable, afebrile -Patient with GI bleed, stool occult positive -s/p 2 units of PRBCs yesterday, hgb stable at 8.7 -Will repeat CBC later this afternoon -Patient went for CTA last night - showed no evidence of acute GI bleed (see full report) -NPO, Continue Protonix drip -S/P Mitral and Aortic valve replacement,off anticoagulation due to GI bleed -Patient with PVD, left toe gangrene, no surgical intervention at this time, podiatry following -Antibiotics: Vancomycin 1 gm daily, Zosyn 3.375mg Q6H -History of seizure disorder, continue Dilantin 100 q8H -History of diabetes, on insulin coverage, Accuchecks ACHS -Will continue to monitor in the ICU -Plan discussed with Dr Zhou <Derick Zhou - Last Filed: 10/21/17 09:26> CCU Objective - Vital Signs / Intake & Output Vital Signs (Last 4 hours): Vital Signs Pulse Resp BP Pulse Ox 10/21/17 07:00 90 14 100 10/21/17 06:54 91 H 13 148/61 100 10/21/17 06:00 94 H 15 99 10/21/17 05:33 104 H 17 158/69 H 96 Intake and Output (Last 8hrs): Intake & Output 10/20/17 10/21/17 10/21/17 22:59 06:59 14:59 Intake Total 700 580 70 Output Total 400 500 1 Balance 300 80 69 Weight 182 lb 12.211 oz Intake: Intake, IV Amount 700 580 70 Right Antecubital 420 Right Antecubital Y Port 50 Right PICC 200 500 60 Right Upper arm 30 80 10 Output: Urine 400 250 Urine, Voided 400 250 Urine/Stool Mix 250 1 Other: # Voids Urine, Voided 1 1 1 # Bowel Movements 1 1 - Medications Active Medications: Active Medications Generic Name Dose Route Start Last Admin Trade Name Jannie PRN Reason Stop Dose Admin Amlodipine Besylate 10 mg 10/15/17 10:00 10/20/17 09:57 Norvasc PO Not Given DAILY [facility] Folic Acid 1 mg 10/15/17 10:00 10/20/17 09:57 Folic Acid PO Not Given DAILY [facility] Sodium Chloride 1,000 mls @ 60 mls/hr 10/19/17 00:00 10/21/17 02:00 Sodium Chloride 0.9% IV Not Given .[id number] [facility] Vancomycin/Sodium Chloride 1 gm in 200 mls @ 166.7 mls/hr 10/19/17 18:00 01/01 17:12 Vancomycin 1 Gm/Ns 200 Ml IVPB 10/24/17 18:01 166.7 mls/hr Q24H [facility] Administration Protocol Pantoprazole Sodium 80 mg/ 100 mls @ 10 mls/hr 10/19/17 18:30 10/21/17 06:37 Sodium Chloride IVPB 10 mls/hr .Q10H [facility] Administration 8 MG/HR Piperacillin Sod/Tazobactam Sod 3.375 gm in 50 mls @ 100 mls/hr 10/19/17 20: 00 10/21/17 08:01 Zosyn 3.375 Gm Iv Premix IVPB 100 mls/hr Q6H [facility] Administration Protocol Insulin Aspart 0 unit 10/20/17 00:00 10/21/17 06:35 Novolog SC Not Given Q6H [facility] Protocol Morphine Sulfate 2 mg 10/14/17 19:56 10/20/17 08:05 Morphine IVP 2 mg Q4 PRN Administration Pain, severe (8-10) Mupirocin 0.5 gm 10/21/17 10:00 Bactroban 2% Nasal BR[place] BID [facility] Phenytoin 100 mg 10/18/17 20:45 10/21/17 05:27 Dilantin IVP 100 mg Q8H [facility] Administration - Patient Studies Lab Studies: Microbiology Studies 10/18/17 21:00 MRSA Culture (Admit) - Final Naris MRSA DETECTED Lab Studies 10/21/17 10/21/17 10/21/17 Range/Units 06:41 06:41 06:41 WBC 6.6 (4.8-10.8) K/uL RBC 2.14 L (3.80-5.20) Mil/uL Hgb 6.3 L* (11.0-16.0) g/dL Hct 18.8 L (34.0-47.0) % MCV 87.9 (81.0-99.0) fL MCH 29.3 (27.0-31.0) pg MCHC 33.3 (33.0-37.0) g/dL RDW 16.1 H (11.5-14.5) % Plt Count 197 (130-400) K/uL MPV 8.0 (7.2-11.7) fL Neut % (Auto) 70.1 (50.0-75.0) % Lymph % (Auto) 19.7 L (20.0-40.0) % [place] % (Auto) 6.5 (0.0-10.0) % Eos % (Auto) 3.3 (0.0-4.0) % Baso % (Auto) 0.4 (0.0-2.0) % Neut # (Auto) 4.6 (1.8-7.0) K/uL Lymph # (Auto) 1.3 (1.0-4.3) K/uL [place] # (Auto) 0.4 (0.0-0.8) K/uL Eos # (Auto) 0.2 (0.0-0.7) K/uL Baso # (Auto) 0.0 (0.0-0.2) K/uL PT (9.7-12.2) SECONDS INR APTT (21-34) SECONDS Sodium 145 (132-148) mmol/L Potassium 3.5 L (3.6-5.2) mmol/L Chloride 106 (98-107) mmol/L Carbon Dioxide 16 L (22-30) mmol/L Anion Gap 27 H (10-20) BUN 9 (7-17) mg/dL Creatinine 0.8 (0.7-1.2) mg/dL Est GFR ( Amer) > 60 Est GFR (Non-Af Amer) > 60 POC Glucose (mg/dL) (65-110) mg/dL Random Glucose 215 H (65-105) mg/dL Calcium 7.0 L (8.6-10.4) mg/dl Phosphorus 2.8 (2.5-4.5) mg/dL Magnesium 1.4 L (1.6-2.3) mg/dL Total Bilirubin 0.3 (0.2-1.3) mg/dL AST 17 (14-36) U/L ALT 13 (9-52) U/L Alkaline Phosphatase 66 (38-126) U/L Total Protein 5.1 L (6.3-8.3) g/dL Albumin 2.1 L (3.5-5.0) g/dL Globulin 3.0 (2.2-3.9) gm/dL Albumin/Globulin Ratio 0.7 L (1.0-2.1) Vancomycin Trough 11.3 H (5.0-10.0) ug/mL 10/21/17 10/20/17 10/20/17 Range/Units 05:48 23:54 17:38 WBC (4.8-10.8) K/uL RBC (3.80-5.20) Mil/uL Hgb (11.0-16.0) g/dL Hct (34.0-47.0) % MCV (81.0-99.0) fL MCH (27.0-31.0) pg MCHC (33.0-37.0) g/dL RDW (11.5-14.5) % Plt Count (130-400) K/uL MPV (7.2-11.7) fL Neut % (Auto) (50.0-75.0) % Lymph % (Auto) (20.0-40.0) % [place] % (Auto) (0.0-10.0) % Eos % (Auto) (0.0-4.0) % Baso % (Auto) (0.0-2.0) % Neut # (Auto) (1.8-7.0) K/uL Lymph # (Auto) (1.0-4.3) K/uL [place] # (Auto) (0.0-0.8) K/uL Eos # (Auto) (0.0-0.7) K/uL Baso # (Auto) (0.0-0.2) K/uL PT (9.7-12.2) SECONDS INR APTT (21-34) SECONDS Sodium (132-148) mmol/L Potassium (3.6-5.2) mmol/L Chloride (98-107) mmol/L Carbon Dioxide (22-30) mmol/L Anion Gap (10-20) BUN (7-17) mg/dL Creatinine (0.7-1.2) mg/dL Est GFR ( Amer) Est GFR (Non-Af Amer) POC Glucose (mg/dL) 216 H 227 H 204 H (65-110) mg/dL Random Glucose (65-105) mg/dL Calcium (8.6-10.4) mg/dl Phosphorus (2.5-4.5) mg/dL Magnesium (1.6-2.3) mg/dL Total Bilirubin (0.2-1.3) mg/dL AST (14-36) U/L ALT (9-52) U/L Alkaline Phosphatase (38-126) U/L Total Protein (6.3-8.3) g/dL Albumin (3.5-5.0) g/dL Globulin (2.2-3.9) gm/dL Albumin/Globulin Ratio (1.0-2.1) Vancomycin Trough (5.0-10.0) ug/mL 10/20/17 10/20/17 10/20/17 Range/Units 15:56 11:45 10:05 WBC 8.1 (4.8-10.8) K/uL RBC 2.76 L (3.80-5.20) Mil/uL Hgb 7.9 L (11.0-16.0) g/dL Hct 23.9 L (34.0-47.0) % MCV 86.9 (81.0-99.0) fL MCH 28.6 (27.0-31.0) pg MCHC 32.9 L (33.0-37.0) g/dL RDW 15.9 H (11.5-14.5) % Plt Count 237 (130-400) K/uL MPV 8.0 (7.2-11.7) fL Neut % (Auto) 77.0 H (50.0-75.0) % Lymph % (Auto) 12.6 L (20.0-40.0) % [place] % (Auto) 5.5 (0.0-10.0) % Eos % (Auto) 3.3 (0.0-4.0) % Baso % (Auto) 1.6 (0.0-2.0) % Neut # (Auto) 6.3 (1.8-7.0) K/uL Lymph # (Auto) 1.0 (1.0-4.3) K/uL [place] # (Auto) 0.4 (0.0-0.8) K/uL Eos # (Auto) 0.3 (0.0-0.7) K/uL Baso # (Auto) 0.1 (0.0-0.2) K/uL PT 11.9 (9.7-12.2) SECONDS INR 1.1 APTT 18 L D (21-34) SECONDS Sodium (132-148) mmol/L Potassium (3.6-5.2) mmol/L Chloride (98-107) mmol/L Carbon Dioxide (22-30) mmol/L Anion Gap (10-20) BUN (7-17) mg/dL Creatinine (0.7-1.2) mg/dL Est GFR ( Amer) Est GFR (Non-Af Amer) POC Glucose (mg/dL) 220 H (65-110) mg/dL Random Glucose (65-105) mg/dL Calcium (8.6-10.4) mg/dl Phosphorus (2.5-4.5) mg/dL Magnesium (1.6-2.3) mg/dL Total Bilirubin (0.2-1.3) mg/dL AST (14-36) U/L ALT (9-52) U/L Alkaline Phosphatase (38-126) U/L Total Protein (6.3-8.3) g/dL Albumin (3.5-5.0) g/dL Globulin (2.2-3.9) gm/dL Albumin/Globulin Ratio (1.0-2.1) Vancomycin Trough (5.0-10.0) ug/mL Laboratory Results - last 24 hr 10/20/17 10/20/17 10/20/17 10:05 11:45 15:56 WBC 8.1 RBC 2.76 L Hgb 7.9 L Hct 23.9 L MCV 86.9 MCH 28.6 MCHC 32.9 L RDW 15.9 H Plt Count 237 MPV 8.0 Neut % (Auto) 77.0 H Lymph % (Auto) 12.6 L [place] % (Auto) 5.5 Eos % (Auto) 3.3 Baso % (Auto) 1.6 Neut # (Auto) 6.3 Lymph # (Auto) 1.0 [place] # (Auto) 0.4 Eos # (Auto) 0.3 Baso # (Auto) 0.1 PT 11.9 INR 1.1 APTT 18 L D Sodium Potassium Chloride Carbon Dioxide Anion Gap BUN Creatinine Est GFR ( Amer) Est GFR (Non-Af Amer) POC Glucose (mg/dL) 220 H Random Glucose Calcium Phosphorus Magnesium Total Bilirubin AST ALT Alkaline Phosphatase Total Protein Albumin Globulin Albumin/Globulin Ratio Vancomycin Trough 10/20/17 10/20/17 10/21/17 17:38 23:54 05:48 WBC RBC Hgb Hct MCV MCH MCHC RDW Plt Count MPV Neut % (Auto) Lymph % (Auto) [place] % (Auto) Eos % (Auto) Baso % (Auto) Neut # (Auto) Lymph # (Auto) [place] # (Auto) Eos # (Auto) Baso # (Auto) PT INR APTT Sodium Potassium Chloride Carbon Dioxide Anion Gap BUN Creatinine Est GFR ( Amer) Est GFR (Non-Af Amer) POC Glucose (mg/dL) 204 H 227 H 216 H Random Glucose Calcium Phosphorus Magnesium Total Bilirubin AST ALT Alkaline Phosphatase Total Protein Albumin Globulin Albumin/Globulin Ratio Vancomycin Trough 10/21/17 10/21/17 10/21/17 06:41 06:41 06:41 WBC 6.6 RBC 2.14 L Hgb 6.3 L* Hct 18.8 L MCV 87.9 MCH 29.3 MCHC 33.3 RDW 16.1 H Plt Count 197 MPV 8.0 Neut % (Auto) 70.1 Lymph % (Auto) 19.7 L [place] % (Auto) 6.5 Eos % (Auto) 3.3 Baso % (Auto) 0.4 Neut # (Auto) 4.6 Lymph # (Auto) 1.3 [place] # (Auto) 0.4 Eos # (Auto) 0.2 Baso # (Auto) 0.0 PT INR APTT Sodium 145 Potassium 3.5 L Chloride 106 Carbon Dioxide 16 L Anion Gap 27 H BUN 9 Creatinine 0.8 Est GFR ( Amer) > 60 Est GFR (Non-Af Amer) > 60 POC Glucose (mg/dL) Random Glucose 215 H Calcium 7.0 L Phosphorus 2.8 Magnesium 1.4 L Total Bilirubin 0.3 AST 17 ALT 13 Alkaline Phosphatase 66 Total Protein 5.1 L Albumin 2.1 L Globulin 3.0 Albumin/Globulin Ratio 0.7 L Vancomycin Trough 11.3 H Critical Care Progress Note - Nutrition Nutrition: Nutrition Category Date Time Status NPO Diet [DIET] Diets 10/19/17 Breakfast Active Assessment/Plan - Assessment and Plan (Free Text) Assessment: Patient seen and examiend at bedside. Patient remains hemodyanmically stable. Above resident note documens my clinical findings and discussion of management -off AC and off antiplatelets; -HB stable near 8.7 -serial cbc and transfuse as needed to keep hemodynamic stability -IR eval if clinically bleeding -left great toe: MRSA (embolic veruss primary infectious) -d/w ICU team -Patient does not require pressors and remains hemodynamically stable - Date & Time Date: 10/20/17 Time: 16:00
--- NOTE | 2017-10-20 15:53 | RAD ---
HISTORY: Verify right PICC COMPARISON: Comparison chest 10/19/2017 FINDINGS: Interval placement right-sided PICC line with tip in the SVC. LUNGS: Mild linear and subsegmental atelectasis left lung base. There also appears to be some minor atelectasis right medial lung base as well. . PLEURA: No significant pleural effusion identified, no pneumothorax apparent. CARDIOVASCULAR: Sternotomy wires and prostatic valve unchanged. Heart remains mildly enlarged OSSEOUS STRUCTURES: No significant abnormalities. VISUALIZED UPPER ABDOMEN: Normal. OTHER FINDINGS: None. IMPRESSION: Interval placement right-sided PICC line as described above. Linear and subsegmental atelectasis left lung base with minor atelectasis right medial lung base.
[2017-10-20 16:03] LABS: BASO # 0.1 K/uL (0.0-0.2); BASO % 1.6 % (0.0-2.0); EOS # 0.3 K/uL (0.0-0.7); EOS % 3.3 % (0.0-4.0); HEMOGLOBIN 7.9 g/dL (11.0-16.0); LYMPH % 12.6 % (20.0-40.0); MEAN CELL VOLUME 86.9 fL (81.0-99.0); MEAN CORPUSCULAR HEMOGLOBIN 28.6 pg (27.0-31.0); MEAN CORPUSCULAR HGB CONC 32.9 g/dL (33.0-37.0); MONO # 0.4 K/uL (0.0-0.8); MONO % 5.5 % (0.0-10.0); NEUT # 6.3 K/uL (1.8-7.0); NRBC % 0.2 % (0.0-2.0); RBC 2.76 Mil/uL (3.80-5.20); RED CELL DISTRIBUTION WIDTH 15.9 % (11.5-14.5); WHITE BLOOD COUNT 8.1 K/uL (4.8-10.8)
[2017-10-20] MEDS: Vancomycin 1 gm/NS 200 ml 1 GM/200 ML BAG IVPB SCH (17:12)
--- NOTE | 2017-10-20 18:35 | PN ---
DATE: SUBJECTIVE: The patient denied any chest pain or shortness of breath. Colonoscopy performed yesterday revealed the preparation of the colon was inadequate, blood in the terminal ileum, and blood in the entire examined colon. No specimen was collected. CT angio of the abdomen and pelvis was performed and revealed no evidence of acute GI bleeding, scattered colonic diverticula, small hiatus hernia, calcified uterine fibroid, and cardiomegaly. ASSESSMENT: 1. Status post aortic and mitral valve replacement in 2008. 2. Peripheral artery disease, status post left lower extremity stenting some 3 weeks ago at [facility] with some gangrenous changes to the left big toe. 3. Gastrointestinal bleeding. The patient had melanotic stool and upper endoscopy was consistent with bleeding erosions and colonoscopy revealed gross blood throughout the colon as well as terminal ileum. 4. Diabetes mellitus. 5. History of seizure disorder. 6. Anemia. RECOMMENDATIONS: Continue current Dilantin, IV Protonix, IV vancomycin, IV Zosyn, both aspirin and Plavix are on hold for now and are not justified in the presence of active bleeding. Kraig Sheldon MD
--- NOTE | 2017-10-20 19:00 | CP.PCM.PN ---
Subjective - Date & Time of Evaluation Date of Evaluation: 10/20/17 Time of Evaluation: 08:00 - Subjective Subjective: Bleeding scan showed acute GI bleed in redundant sigmoid colon vs small bowel. General surgery consulted. Offers no complaints at this time. + Mrsa foot and nose IV rx in progress Objective - Vital Signs/Intake and Output Vital Signs (last 24 hours): Temp Pulse Resp BP Pulse Ox 98.4 F 88 12 134/49 L 98 10/20/17 16:00 10/20/17 18:00 10/20/17 18:00 10/20/17 18:33 10/20/17 18:00 Intake and Output: 10/20/17 10/20/17 06:59 18:59 Intake Total 770 1140 Output Total 850 500 Balance -80 640 - Medications Medications: Current Medications Amlodipine Besylate (Norvasc) 10 mg PO DAILY [facility] Last Admin: 10/20/17 09:57 Dose: Not Given Aspirin (Aspirin Chewable) 81 mg PO DAILY [facility] Last Admin: 10/17/17 09:08 Dose: 81 mg Clopidogrel Bisulfate (Plavix) 75 mg PO DAILY [facility] Last Admin: 10/17/17 09:09 Dose: 75 mg Folic Acid (Folic Acid) 1 mg PO DAILY [facility] Last Admin: 10/20/17 09:57 Dose: Not Given Sodium Chloride (Sodium Chloride 0.9%) 1,000 mls @ 60 mls/hr IV .[id number] [facility] Last Admin: 10/20/17 10:00 Dose: Not Given Vancomycin/Sodium Chloride (Vancomycin 1 Gm/Ns 200 Ml) 1 gm in 200 mls @ 166.7 mls/hr IVPB Q24H [facility] PRN Reason: Protocol Stop: 10/24/17 18:01 Last Admin: 10/20/17 17:12 Dose: 166.7 mls/hr Pantoprazole Sodium 80 mg/ (Sodium Chloride) 100 mls @ 10 mls/hr IVPB .Q10H [facility] PRN Reason: 8 MG/HR Last Admin: 10/20/17 17:14 Dose: 10 mls/hr Piperacillin Sod/Tazobactam Sod (Zosyn 3.375 Gm Iv Premix) 3.375 gm in 50 mls @ 100 mls/hr IVPB Q6H [facility] PRN Reason: Protocol Last Admin: 10/20/17 13:15 Dose: 100 mls/hr Insulin Aspart (Novolog) 0 unit SC Q6H [facility] PRN Reason: Protocol Last Admin: 10/20/17 17:43 Dose: Not Given Morphine Sulfate (Morphine) 2 mg IVP Q4 PRN PRN Reason: Pain, severe (8-10) Last Admin: 10/20/17 08:05 Dose: 2 mg Phenytoin (Dilantin) 100 mg IVP Q8H [facility] Last Admin: 10/20/17 12:12 Dose: 100 mg - Labs Labs: 10/20/17 15:56 10/20/17 06:42 PT 11.9 SECONDS (9.7-12.2) 10/20/17 10:05 INR 1.1 10/20/17 10:05 APTT 18 SECONDS (21-34) L D 10/20/17 10:05 - Constitutional Appears: Non-toxic, Chronically Ill - Head Exam Head Exam: NORMOCEPHALIC - Eye Exam Eye Exam: PERRL - ENT Exam ENT Exam: Mucous Membranes Dry - Neck Exam Neck Exam: absent: Lymphadenopathy - Respiratory Exam Respiratory Exam: Decreased Breath Sounds - Cardiovascular Exam Cardiovascular Exam: REGULAR RHYTHM - GI/Abdominal Exam GI & Abdominal Exam: Distended - Rectal Exam Rectal Exam: Deferred - Exam Exam: NORMAL INSPECTION - Extremities Exam Extremities Exam: absent: Pedal Edema - Back Exam Back Exam: absent: CVA tenderness (L), CVA tenderness (R) - Neurological Exam Neurological Exam: Alert, Awake, Oriented x3 Assessment and Plan (1) Anemia Status: Acute (2) Toe gangrene Status: Acute (3) CAD (coronary artery disease) Status: Chronic (4) Dyslipidemia Status: Chronic (5) PVD (peripheral vascular disease) Status: Chronic (6) Uncontrolled diabetes mellitus Status: Chronic
--- NOTE | 2017-10-20 22:26 | CARD ---
APPROVED REPORT EKG Measurement Heart [id number] OK 150P50 [id number] <Conclusion> Normal sinus rhythm Marked T wave abnormality, consider anterolateral ischemia Prolonged QT Abnormal ECG
--- NOTE | 2017-10-20 23:42 | CP.PCM.PN ---
Subjective - Date & Time of Evaluation Date of Evaluation: 10/20/17 Time of Evaluation: 18:40 - Subjective Subjective: Pt seen and evalauted, Bleeding scan showed acute GI bleed in redundant sigmoid colon vs small bowel. General surgery consulted. Offers no complaints at this time. + Mrsa foot and nose IV rx in progress Objective - Vital Signs/Intake and Output Vital Signs (last 24 hours): Temp Pulse Resp BP Pulse Ox 98.1 F 85 13 145/50 L 99 10/20/17 20:00 10/20/17 22:33 10/20/17 22:33 10/20/17 22:33 10/20/17 19:33 Intake and Output: 10/20/17 10/21/17 18:59 06:59 Intake Total 1140 370 Output Total 500 200 Balance 640 170 - Medications Medications: Current Medications Amlodipine Besylate (Norvasc) 10 mg PO DAILY [facility] Last Admin: 10/20/17 09:57 Dose: Not Given Aspirin (Aspirin Chewable) 81 mg PO DAILY [facility] Last Admin: 10/17/17 09:08 Dose: 81 mg Clopidogrel Bisulfate (Plavix) 75 mg PO DAILY [facility] Last Admin: 10/17/17 09:09 Dose: 75 mg Folic Acid (Folic Acid) 1 mg PO DAILY [facility] Last Admin: 10/20/17 09:57 Dose: Not Given Sodium Chloride (Sodium Chloride 0.9%) 1,000 mls @ 60 mls/hr IV .[id number] [facility] Last Admin: 10/20/17 20:25 Dose: 60 mls/hr Vancomycin/Sodium Chloride (Vancomycin 1 Gm/Ns 200 Ml) 1 gm in 200 mls @ 166.7 mls/hr IVPB Q24H [facility] PRN Reason: Protocol Stop: 10/24/17 18:01 Last Admin: 10/20/17 17:12 Dose: 166.7 mls/hr Pantoprazole Sodium 80 mg/ (Sodium Chloride) 100 mls @ 10 mls/hr IVPB .Q10H [facility] PRN Reason: 8 MG/HR Last Admin: 10/20/17 17:14 Dose: 10 mls/hr Piperacillin Sod/Tazobactam Sod (Zosyn 3.375 Gm Iv Premix) 3.375 gm in 50 mls @ 100 mls/hr IVPB Q6H [facility] PRN Reason: Protocol Last Admin: 10/20/17 20:22 Dose: 100 mls/hr Insulin Aspart (Novolog) 0 unit SC Q6H [facility] PRN Reason: Protocol Last Admin: 10/20/17 17:43 Dose: Not Given Morphine Sulfate (Morphine) 2 mg IVP Q4 PRN PRN Reason: Pain, severe (8-10) Last Admin: 10/20/17 08:05 Dose: 2 mg Mupirocin (Bactroban 2% Nasal) 0.5 gm BROOK BID [facility] Phenytoin (Dilantin) 100 mg IVP Q8H [facility] Last Admin: 10/20/17 20:22 Dose: 100 mg - Labs Labs: 10/20/17 15:56 10/20/17 06:42 PT 11.9 SECONDS (9.7-12.2) 10/20/17 10:05 INR 1.1 10/20/17 10:05 APTT 18 SECONDS (21-34) L D 10/20/17 10:05 Assessment and Plan (1) Anemia Status: Acute (2) GI bleed Status: Acute (3) S/P MVR (mitral valve replacement) Status: Acute (4) Small intestinal hemorrhage requiring more than four units of blood in 24 hours, admission to ICU, or surgery Status: Acute (5) Toe gangrene Status: Acute (6) Uncontrolled hypertension Status: Acute (7) CAD (coronary artery disease) Status: Chronic
[2017-10-21] MEDS: (Novolog) Insulin Aspart, Recombinant 100 u/ml 10 ml vial SC SCH ×4 (00:33→18:09)
[2017-10-21] MEDS: Pantoprazole 80 MG in Sodium Chloride 0.9% 100 ML IVPB SCH ×5 (00:35→20:30)
[2017-10-21] MEDS: Piperacill/Tazo 3.375gm in Dex 3.375 GM/50 ML BAG IVPB SCH ×4 (01:47→20:14)
[2017-10-21] MEDS: Sodium Chloride 0.9% 1,000 ML IV SCH ×2 (02:00→18:50)
[2017-10-21] MEDS: Phenytoin 100 mg/2 ml Inj IVP SCH ×3 (05:27→20:14)
[2017-10-21 06:46] LABS: BASO % 0.4 % (0.0-2.0); EOS # 0.2 K/uL (0.0-0.7); EOS % 3.3 % (0.0-4.0); LYMPH # 1.3 K/uL (1.0-4.3); LYMPH % 19.7 % (20.0-40.0); MEAN CELL VOLUME 87.9 fL (81.0-99.0); MEAN CORPUSCULAR HEMOGLOBIN 29.3 pg (27.0-31.0); MEAN CORPUSCULAR HGB CONC 33.3 g/dL (33.0-37.0); MONO # 0.4 K/uL (0.0-0.8); MONO % 6.5 % (0.0-10.0); NEUT # 4.6 K/uL (1.8-7.0); NEUT % 70.1 % (50.0-75.0); RBC 2.14 Mil/uL (3.80-5.20); RED CELL DISTRIBUTION WIDTH 16.1 % (11.5-14.5); WHITE BLOOD COUNT 6.6 K/uL (4.8-10.8)
[2017-10-21 06:49] LABS: HEMOGLOBIN 6.3 g/dL (11.0-16.0)
[2017-10-21 07:02] LABS: ALB/GLOB RATIO 0.7 (1.0-2.1); ALBUMIN 2.1 g/dL (3.5-5.0); ALT/SGPT 13 U/L (9-52); AST/SGOT 17 U/L (14-36); BLOOD UREA NITROGEN 9 mg/dL (7-17); GFR AFRICAN-AMERICAN > 60; GFR NON-AFRICAN AMERICAN > 60
--- NOTE | 2017-10-21 08:04 | CP.PCM.PN ---
Subjective - Date & Time of Evaluation Date of Evaluation: 10/21/17 Time of Evaluation: 07:57 - Subjective Subjective: Patient seen and examined, resting in bed comfortably. She remains in critical care unit, reports 3 episodes of bright red rectal bleeding overnight which was verified by nursing staff. She denies associated abdominal pain, nausea, vomiting, fever/chills. Review of vitals from today shows tachycardia. 12 point review of systems performed, negative aside from mentioned above. Objective - Vital Signs/Intake and Output Vital Signs (last 24 hours): Temp Pulse Resp BP Pulse Ox 98.4 F 90 14 148/61 100 10/21/17 04:00 10/21/17 07:00 10/21/17 07:00 10/21/17 06:54 10/21/17 07:00 Intake and Output: 10/21/17 10/21/17 06:59 18:59 Intake Total 880 70 Output Total 700 1 Balance 180 69 - Medications Medications: Current Medications Amlodipine Besylate (Norvasc) 10 mg PO DAILY [facility] Last Admin: 10/20/17 09:57 Dose: Not Given Aspirin (Aspirin Chewable) 81 mg PO DAILY [facility] Last Admin: 10/17/17 09:08 Dose: 81 mg Clopidogrel Bisulfate (Plavix) 75 mg PO DAILY [facility] Last Admin: 10/17/17 09:09 Dose: 75 mg Folic Acid (Folic Acid) 1 mg PO DAILY [facility] Last Admin: 10/20/17 09:57 Dose: Not Given Sodium Chloride (Sodium Chloride 0.9%) 1,000 mls @ 60 mls/hr IV .[id number] [facility] Last Admin: 10/21/17 02:00 Dose: Not Given Vancomycin/Sodium Chloride (Vancomycin 1 Gm/Ns 200 Ml) 1 gm in 200 mls @ 166.7 mls/hr IVPB Q24H [facility] PRN Reason: Protocol Stop: 10/24/17 18:01 Last Admin: 10/20/17 17:12 Dose: 166.7 mls/hr Pantoprazole Sodium 80 mg/ (Sodium Chloride) 100 mls @ 10 mls/hr IVPB .Q10H [facility] PRN Reason: 8 MG/HR Last Admin: 10/21/17 06:37 Dose: 10 mls/hr Piperacillin Sod/Tazobactam Sod (Zosyn 3.375 Gm Iv Premix) 3.375 gm in 50 mls @ 100 mls/hr IVPB Q6H [facility] PRN Reason: Protocol Last Admin: 10/21/17 01:47 Dose: 100 mls/hr Insulin Aspart (Novolog) 0 unit SC Q6H [facility] PRN Reason: Protocol Last Admin: 10/21/17 06:35 Dose: Not Given Morphine Sulfate (Morphine) 2 mg IVP Q4 PRN PRN Reason: Pain, severe (8-10) Last Admin: 10/20/17 08:05 Dose: 2 mg Mupirocin (Bactroban 2% Nasal) 0.5 gm BROOK BID [facility] Phenytoin (Dilantin) 100 mg IVP Q8H [facility] Last Admin: 10/21/17 05:27 Dose: 100 mg - Labs Labs: 10/21/17 06:41 10/21/17 06:41 PT 11.9 SECONDS (9.7-12.2) 10/20/17 10:05 INR 1.1 10/20/17 10:05 APTT 18 SECONDS (21-34) L D 10/20/17 10:05 - Constitutional Appears: Non-toxic, No Acute Distress - Head Exam Head Exam: NORMAL INSPECTION - Eye Exam Eye Exam: EOMI, Normal appearance - ENT Exam ENT Exam: Mucous Membranes Moist - Respiratory Exam Respiratory Exam: Clear to Ausculation Bilateral - Cardiovascular Exam Cardiovascular Exam: Clicks, +S1, +S2 - GI/Abdominal Exam GI & Abdominal Exam: Soft, Normal Bowel Sounds Additional comments: non tender to palpation in four quadrants - Extremities Exam Extremities Exam: Normal Inspection - Skin Skin Exam: Dry, Intact, Normal Color, Warm Assessment and Plan - Assessment and Plan (Free Text) Assessment: CAD Osteomyelitis History of mitral/aortic valve replacement Anemia - rectal bleeding Bleeding scan + for acute GI bleeding with suspected small bowel source s/p EGD and colonoscopy without active bleeding visualized, though presence of blood in ileum noted Plan: - NPO - Continue with IV PPI infusion therapy - H/H continues to trend down, transfuse and monitor - Suggest IR evaluation for potential intervention given clinical evidence of ongoing bleeding - Will continue to closely monitor patient clinical course
[2017-10-21] MEDS ORDERED: Iodixanol 320 mg/ml 150 ml Bottle IV ONE (08:21)
--- NOTE | 2017-10-21 09:40 | CP.PCM.PN ---
Subjective - Date & Time of Evaluation Date of Evaluation: 10/21/17 Time of Evaluation: 09:36 - Subjective Subjective: Overnight patient had multiple black/brown BM, today morning hb low Objective - Vital Signs/Intake and Output Vital Signs (last 24 hours): Temp Pulse Resp BP Pulse Ox 98.4 F 90 14 148/61 100 10/21/17 04:00 10/21/17 07:00 10/21/17 07:00 10/21/17 06:54 10/21/17 07:00 Intake and Output: 10/21/17 10/21/17 06:59 18:59 Intake Total 880 70 Output Total 700 1 Balance 180 69 - Medications Medications: Current Medications Amlodipine Besylate (Norvasc) 10 mg PO DAILY [facility] Last Admin: 10/20/17 09:57 Dose: Not Given Folic Acid (Folic Acid) 1 mg PO DAILY [facility] Last Admin: 10/20/17 09:57 Dose: Not Given Sodium Chloride (Sodium Chloride 0.9%) 1,000 mls @ 60 mls/hr IV .[id number] [facility] Last Admin: 10/21/17 02:00 Dose: Not Given Vancomycin/Sodium Chloride (Vancomycin 1 Gm/Ns 200 Ml) 1 gm in 200 mls @ 166.7 mls/hr IVPB Q24H [facility] PRN Reason: Protocol Stop: 10/24/17 18:01 Last Admin: 10/20/17 17:12 Dose: 166.7 mls/hr Pantoprazole Sodium 80 mg/ (Sodium Chloride) 100 mls @ 10 mls/hr IVPB .Q10H [facility] PRN Reason: 8 MG/HR Last Admin: 10/21/17 06:37 Dose: 10 mls/hr Piperacillin Sod/Tazobactam Sod (Zosyn 3.375 Gm Iv Premix) 3.375 gm in 50 mls @ 100 mls/hr IVPB Q6H [facility] PRN Reason: Protocol Last Admin: 10/21/17 08:01 Dose: 100 mls/hr Insulin Aspart (Novolog) 0 unit SC Q6H [facility] PRN Reason: Protocol Last Admin: 10/21/17 06:35 Dose: Not Given Morphine Sulfate (Morphine) 2 mg IVP Q4 PRN PRN Reason: Pain, severe (8-10) Last Admin: 04/06/18 08:05 Dose: 2 mg Mupirocin (Bactroban 2% Nasal) 0.5 gm BROOK BID [facility] Phenytoin (Dilantin) 100 mg IVP Q8H [facility] Last Admin: 10/21/17 05:27 Dose: 100 mg - Labs Labs: 10/21/17 06:41 10/21/17 06:41 PT 11.9 SECONDS (9.7-12.2) 10/20/17 10:05 INR 1.1 10/20/17 10:05 APTT 18 SECONDS (21-34) L D 10/20/17 10:05 - Constitutional Appears: No Acute Distress - Head Exam Head Exam: ATRAUMATIC - Respiratory Exam Respiratory Exam: NORMAL BREATHING PATTERN - Cardiovascular Exam Cardiovascular Exam: REGULAR RHYTHM, +S1, +S2 Additional comments: click - Extremities Exam Extremities Exam: Normal Inspection, Pedal Edema - Neurological Exam Neurological Exam: Alert, Awake, Oriented x3 Assessment and Plan - Assessment and Plan (Free Text) Assessment: -Acute blood loss: anemia: s/p EGD and colonoscopy, and bleeding scan, lkely diagnosis as per payroll consultant is Small bowel bleed,off all AC and antiplatelets, 2 units PRBC to be transfused today -called IR for evaluation -CT angio orderd -continue PPI -Patient remains hemodynamically stable -continue serial cbc and transfuse as needed -contineu vanco for left toe infection (MRSA) -Patient remains hemodyanmically stable with episodic blood loss from GI tract.
[2017-10-21 09:59] LABS: BASO % 0.6 % (0.0-2.0); EOS # 0.3 K/uL (0.0-0.7); EOS % 3.1 % (0.0-4.0); HEMOGLOBIN 7.5 g/dL (11.0-16.0); LYMPH # 1.4 K/uL (1.0-4.3); LYMPH % 15.9 % (20.0-40.0); MEAN CELL VOLUME 89.2 fL (81.0-99.0); MEAN CORPUSCULAR HEMOGLOBIN 29.1 pg (27.0-31.0); MEAN CORPUSCULAR HGB CONC 32.6 g/dL (33.0-37.0); MEAN PLATELET VOLUME 8.6 fL (7.2-11.7); MONO # 0.5 K/uL (0.0-0.8); MONO % 6.4 % (0.0-10.0); NEUT # 6.3 K/uL (1.8-7.0); NRBC % 0.1 % (0.0-2.0); RBC 2.57 Mil/uL (3.80-5.20); RED CELL DISTRIBUTION WIDTH 16.5 % (11.5-14.5); WHITE BLOOD COUNT 8.5 K/uL (4.8-10.8)
[2017-10-21] MEDS: Mupirocin 2% Ointment (NASAL) NAS SCH ×2 (10:23→17:23)
[2017-10-21] MEDS: Magnesium Sulfate 1 gm in D5W 1 GM/100 ML BAG IVPB SCH ×2 (11:46→12:02)
--- NOTE | 2017-10-21 12:00 | CP.PCM.PN ---
Subjective - Date & Time of Evaluation Date of Evaluation: 10/21/17 Time of Evaluation: 12:00 - Subjective Subjective: Podiatry Progress Note- Dr. Bhat 57 yo female pt seen at the bedside in ICU this morning for gangrenous L 1st hallux with underlying OM. Patient receiving transfusion at time of visit. Patient reports mild pain to left great toe, controlled. Dressing clean/dry/ intact. Denies N/V/F/D/C/SOB/WOOD/dizziness. Offers no other pedal complaints. Objective - Vital Signs/Intake and Output Vital Signs (last 24 hours): Temp Pulse Resp BP Pulse Ox 98.2 F 100 H 18 136/59 L 100 10/21/17 11:17 10/21/17 11:17 10/21/17 11:17 10/21/17 11:17 10/21/17 11:00 Intake and Output: 10/21/17 10/21/17 06:59 18:59 Intake Total 880 360 Output Total 700 251 Balance 180 109 - Medications Medications: Current Medications Amlodipine Besylate (Norvasc) 10 mg PO DAILY [facility] Last Admin: 10/20/17 09:57 Dose: Not Given Folic Acid (Folic Acid) 1 mg PO DAILY [facility] Last Admin: 10/21/17 10:21 Dose: Not Given Sodium Chloride (Sodium Chloride 0.9%) 1,000 mls @ 60 mls/hr IV .[id number] [facility] Last Admin: 10/21/17 02:00 Dose: Not Given Vancomycin/Sodium Chloride (Vancomycin 1 Gm/Ns 200 Ml) 1 gm in 200 mls @ 166.7 mls/hr IVPB Q24H [facility] PRN Reason: Protocol Stop: 10/24/17 18:01 Last Admin: 10/20/17 17:12 Dose: 166.7 mls/hr Pantoprazole Sodium 80 mg/ (Sodium Chloride) 100 mls @ 10 mls/hr IVPB .Q10H [facility] PRN Reason: 8 MG/HR Last Admin: 10/21/17 10:21 Dose: Not Given Piperacillin Sod/Tazobactam Sod (Zosyn 3.375 Gm Iv Premix) 3.375 gm in 50 mls @ 100 mls/hr IVPB Q6H [facility] PRN Reason: Protocol Last Admin: 10/21/17 08:01 Dose: 100 mls/hr Magnesium Sulfate/Dextrose (Magnesium Sulfate 1 Gm/100 Ml D5w) 1 gm in 100 mls @ 300 mls/hr IVPB Q30M [facility] Stop: 10/21/17 12:19 Last Admin: 10/21/17 11:46 Dose: 300 mls/hr Potassium Chloride (Potassium Chloride 20 Meq/100 Ml) 20 meq in 100 mls @ 50 mls/hr IVPB Q2H [facility] Stop: 10/21/17 15:29 Last Admin: 10/21/17 11:46 Dose: 50 mls/hr Insulin Aspart (Novolog) 0 unit SC Q6H [facility] PRN Reason: Protocol Last Admin: 10/21/17 06:35 Dose: Not Given Morphine Sulfate (Morphine) 2 mg IVP Q4 PRN PRN Reason: Pain, severe (8-10) Last Admin: 10/20/17 08:05 Dose: 2 mg Mupirocin (Bactroban 2% Nasal) 0.5 gm BROOK BID [facility] Last Admin: 10/21/17 10:23 Dose: 0.5 gm Phenytoin (Dilantin) 100 mg IVP Q8H [facility] Last Admin: 10/21/17 05:27 Dose: 100 mg - Labs Labs: 10/21/17 09:55 10/21/17 06:41 PT 11.9 SECONDS (9.7-12.2) 10/20/17 10:05 INR 1.1 10/20/17 10:05 APTT 18 SECONDS (21-34) L D 10/20/17 10:05 - Constitutional Appears: Well, Non-toxic, No Acute Distress - Extremities Exam Additional comments: LLE focused: dressing to left foot appears c,d,i Vasc: DP and PT pulses are nonpalpable, skin temp runs cool to cool (proximal to distal) lower extremities cool to cool Ortho: Mild pain with palpation to the left hallux and surrounding periwound, MM is 4/5 in all four compartments consistent with age Neuro: gross sensation intact bilaterally, protective sensation diminished Derm: Dry gangrene noted to the distal left hallux to the level of the IPJ with nail plate absent from nail bed, wound base is 100% necrotic and gangrenous, distal mummification with demarcating process noted, no active purulent drainage noted or expressed, no malodor, no appreciable erythema or streaking, no probe to bone, no tunneling, no undermining. No other grossly ischemic changes appreciated to b/l feet - Neurological Exam Neurological Exam: Alert, Awake, Oriented x3 - Psychiatric Exam Psychiatric exam: Normal Affect, Normal Mood Assessment and Plan - Assessment and Plan (Free Text) Assessment: 57 y.o female w/ gangrenous left 1st hallux with underlying OM Plan: Patient seen and evaluated at bedside Discussed with attending, Dr. Bhat Afebrile, WBC WNL CT angio: -Right- short segment moderate stenosis prox SFA w/ long segment severe stenosis of the mid/distal SFA stent. Mild tandem stenosis of right popliteal. Markedly limited evaluation of below knee arteries due to heavy arterial wall calcification -Left- short segment moderate stenosis of prox SFA. Patent indwelling mid/ distal SFA stent. Mild tandem stenoses of the superficial femoral and popliteal artery. Markedly limited eval of anterior tibial and peroneal arteries due to heavy arterial wall calcification Per vascular, further surgical planning of PVD on hold pending resolution of GI bleed Continue abx per ID - Vancomycin 1g IV, Zosyn 3.375g IV Pain regimen per primary GI recs appreciated - monitor H/H, possible IR eval of bleeding Continue local wound care: betadine, DSD to left hallux Podiatry will follow
--- NOTE | 2017-10-21 12:05 | CT ---
CT angiography abdomen and pelvis with intravenous contrast. History: Abdominal pain. Active GI bleed. Comparison: CT scan dated 10/19/2017. Technique: Axial computed tomographic angiographic images of the abdomen and pelvis were performed with intravenous contrast. Subsequently, sagittal and coronal reformatted images were obtained. This CT exam was performed using one or more of the following dose reduction techniques: Automated exposure control, adjustment of the mA and/or kV according to patient size, and/or use of iterative reconstruction technique. Findings: No evidence of abdominal aortic aneurysm. 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 No active arterial extravasation visualized but opacification of the distal arterial branches is suboptimal. Scattered calcification and plaque within the visualized vessels. No gross stenosis or occlusion of the renal arteries. No gross stenosis or occlusion of the iliac arteries. Bilateral lower lobe atelectasis. Heterogeneous echotexture of the liver. Gallbladder appears preserved. Pancreas and spleen appear preserved. Adrenals appear preserved. Kidneys and ureters appear preserved. Visualized bowel appears preserved. The visualized urinary bladder appears preserved. Calcified fibroid lesions in the uterus. Bilateral inguinal canal lipomas. Impression: Technically limited exam without visualization of active arterial extravasation. Please note there was a positive nuclear medicine study on 10/19/2017 which demonstrated active bleed. 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 Additional findings as above. These findings were preliminarily reported at 10:04 a.m. on 10/21/[address] Jean Caballero from [facility].
--- NOTE | 2017-10-21 16:38 | PN ---
DATE: SUBJECTIVE: The patient is having melena and is currently receiving packed RBC transfusion. She denies any dizziness, chest pain, shortness of breath, or abdominal pain. PHYSICAL EXAMINATION: VITAL SIGNS: Blood pressure 127/55, heart rate 88, temperature 98.3, respirations 19. HEENT: Pale conjunctivae. CHEST: Clear. HEART: S1, S2 regular. EXTREMITIES: Trace leg edema. LABORATORY DATA: Today's hemoglobin and hematocrit 7.5 and 22.9; white count and platelet count are within normal limit. Today's SMA-7: Sodium 145, potassium 3.5, chloride 106, CO2 16, glucose 215, BUN 27, creatinine 0.9. A repeat abdomen and pelvis CT angio was performed and impression was technically limited without visualization of active arterial extravasation. An earlier nuclear scan on 10/19/2017 reported positive tests, movement of the radionuclide within the lumen of either pelvic, loop, or small bowel or more likely on the lateral view. ASSESSMENT: 1. Lower gastrointestinal bleeding, most likely from the small bowel. 2. Status post aortic and mitral valve replacement. 3. Peripheral vascular disease, status post left lower extremity stenting some 3 weeks ago with left big toe gangrenous changes. 4. Borderline hypokalemia. RECOMMENDATIONS: Continue morphine sulfate 2 mg IV every 4 hours p.r.n. Continue IV Zosyn and IV vancomycin. The patient did receive magnesium sulphate infusion today for a magnesium level of 1.4. The patient has an order for KCl 20 mEq to be administered today. Kraig Sheldon MD
[2017-10-21] MEDS: Vancomycin 1 gm/NS 200 ml 1 GM/200 ML BAG IVPB SCH (17:23)
[2017-10-21] MEDS ORDERED: Peg-Electrolyte Oral Soln 4L (Golytely) PO ONE (18:30)
--- NOTE | 2017-10-21 23:00 | CP.PCM.PN ---
Subjective - Date & Time of Evaluation Date of Evaluation: 10/21/17 Time of Evaluation: 17:30 - Subjective Subjective: Pt seen and examined, bleeding has stoppd, no blood in stool had 1 bowel movement today, H and H is stable, Patient receiving transfusion at time of visit. Patient reports mild pain to left great toe, controlled. Dressing clean/ dry/intact. Denies N/V/F/D/C/SOB/WOOD/dizziness. Offers no other pedal complaints. Objective - Vital Signs/Intake and Output Vital Signs (last 24 hours): Temp Pulse Resp BP Pulse Ox 98.2 F 80 17 170/70 H 97 10/21/17 20:00 10/21/17 21:00 10/21/17 21:00 10/21/17 19:16 10/21/17 21:00 Intake and Output: 10/21/17 10/22/17 18:59 06:59 Intake Total 1700 880 Output Total 1301 275 Balance 399 605 - Medications Medications: Current Medications Amlodipine Besylate (Norvasc) 10 mg PO DAILY [facility] Last Admin: 10/20/17 09:57 Dose: Not Given Folic Acid (Folic Acid) 1 mg PO DAILY [facility] Last Admin: 10/21/17 10:21 Dose: Not Given Sodium Chloride (Sodium Chloride 0.9%) 1,000 mls @ 60 mls/hr IV .[id number] [facility] Last Admin: 10/21/17 18:50 Dose: Not Given Vancomycin/Sodium Chloride (Vancomycin 1 Gm/Ns 200 Ml) 1 gm in 200 mls @ 166.7 mls/hr IVPB Q24H [facility] PRN Reason: Protocol Stop: 10/24/17 18:01 Last Admin: 10/21/17 17:23 Dose: 166.7 mls/hr Pantoprazole Sodium 80 mg/ (Sodium Chloride) 100 mls @ 10 mls/hr IVPB .Q10H [facility] PRN Reason: 8 MG/HR Last Admin: 10/21/17 20:30 Dose: Not Given Piperacillin Sod/Tazobactam Sod (Zosyn 3.375 Gm Iv Premix) 3.375 gm in 50 mls @ 100 mls/hr IVPB Q6H [facility] PRN Reason: Protocol Last Admin: 10/21/17 20:14 Dose: 100 mls/hr Insulin Aspart (Novolog) 0 unit SC Q6H [facility] PRN Reason: Protocol Last Admin: 10/21/17 18:09 Dose: 2 unit Morphine Sulfate (Morphine) 2 mg IVP Q4 PRN PRN Reason: Pain, severe (8-10) Last Admin: 10/20/17 08:05 Dose: 2 mg Mupirocin (Bactroban 2% Nasal) 0.5 gm BROOK BID [facility] Last Admin: 10/21/17 17:23 Dose: 0.5 gm Phenytoin (Dilantin) 100 mg IVP Q8H [facility] Last Admin: 10/21/17 20:14 Dose: 100 mg - Labs Labs: 10/21/17 09:55 10/21/17 06:41 PT 11.9 SECONDS (9.7-12.2) 10/20/17 10:05 INR 1.1 10/20/17 10:05 APTT 18 SECONDS (21-34) L D 10/20/17 10:05 - Constitutional Appears: No Acute Distress - Head Exam Head Exam: ATRAUMATIC, NORMAL INSPECTION, NORMOCEPHALIC - Eye Exam Eye Exam: EOMI, Normal appearance, PERRL Pupil Exam: NORMAL ACCOMODATION, PERRL - Respiratory Exam Respiratory Exam: Clear to Ausculation Bilateral, NORMAL BREATHING PATTERN - Cardiovascular Exam Cardiovascular Exam: REGULAR RHYTHM, +S1, +S2. absent: Murmur - GI/Abdominal Exam GI & Abdominal Exam: Soft, Normal Bowel Sounds. absent: Tenderness - Rectal Exam Rectal Exam: Deferred Assessment and Plan (1) GI bleed Status: Acute (2) Anemia Status: Acute (3) Toe gangrene Status: Acute (4) CAD (coronary artery disease) Status: Chronic
[2017-10-22] MEDS: (Novolog) Insulin Aspart, Recombinant 100 u/ml 10 ml vial SC SCH ×4 (00:01→17:42)
[2017-10-22] MEDS: Sodium Chloride 0.9% 1,000 ML IV SCH ×3 (01:00→19:30)
[2017-10-22] MEDS: Piperacill/Tazo 3.375gm in Dex 3.375 GM/50 ML BAG IVPB SCH ×2 (02:00→07:38)
[2017-10-22] MEDS: Pantoprazole 80 MG in Sodium Chloride 0.9% 100 ML IVPB SCH ×4 (03:16→21:11)
[2017-10-22] MEDS: Phenytoin 100 mg/2 ml Inj IVP SCH ×3 (04:45→19:46)
[2017-10-22 06:23] LABS: BASO % 0.4 % (0.0-2.0); EOS # 0.2 K/uL (0.0-0.7); EOS % 2.9 % (0.0-4.0); HEMOGLOBIN 8.7 g/dL (11.0-16.0); LYMPH # 1.7 K/uL (1.0-4.3); LYMPH % 20.8 % (20.0-40.0); MEAN CELL VOLUME 86.3 fL (81.0-99.0); MEAN CORPUSCULAR HEMOGLOBIN 29.5 pg (27.0-31.0); MEAN CORPUSCULAR HGB CONC 34.2 g/dL (33.0-37.0); MEAN PLATELET VOLUME 8.4 fL (7.2-11.7); MONO # 0.6 K/uL (0.0-0.8); MONO % 7.4 % (0.0-10.0); NEUT # 5.7 K/uL (1.8-7.0); NEUT % 68.5 % (50.0-75.0); NRBC % 0.1 % (0.0-2.0); RBC 2.94 Mil/uL (3.80-5.20); RED CELL DISTRIBUTION WIDTH 17.2 % (11.5-14.5); WHITE BLOOD COUNT 8.4 K/uL (4.8-10.8)
[2017-10-22 06:31] LABS: ALB/GLOB RATIO 0.9 (1.0-2.1); ALBUMIN 2.6 g/dL (3.5-5.0); ALT/SGPT 13 U/L (9-52); AST/SGOT 19 U/L (14-36); BLOOD UREA NITROGEN 11 mg/dL (7-17); CALCIUM 8.2 mg/dl (8.6-10.4); GFR AFRICAN-AMERICAN > 60; GFR NON-AFRICAN AMERICAN 57
[2017-10-22] MEDS ORDERED: Peg-Electrolyte Oral Soln 4L (Golytely) PO ONE (08:21)
--- NOTE | 2017-10-22 08:27 | CP.PCM.PN ---
Subjective - Date & Time of Evaluation Date of Evaluation: 10/22/17 Time of Evaluation: 08:21 - Subjective Subjective: Patient seen and examined. She remains in critical care unit, seen resting in bed comfortably. No acute events overnight, she denies abdominal pain, nausea, vomiting, fever/chills. She began Golytely bowel preparation yesterday, has noted ongoing dark stool mixed with clot. She received 2 units PRBC transfusion yesterday. Review of vitals from today shows tachycardia. 12 point review of systems performed, negative aside from mentioned above. Objective - Vital Signs/Intake and Output Vital Signs (last 24 hours): Temp Pulse Resp BP Pulse Ox 98 F 97 H 21 127/54 L 97 10/22/17 04:00 10/22/17 07:15 10/22/17 07:15 10/22/17 07:15 10/22/17 07:15 Intake and Output: 10/22/17 10/22/17 06:59 18:59 Intake Total 2220 70 Output Total 1425 Balance 795 70 - Medications Medications: Current Medications Amlodipine Besylate (Norvasc) 10 mg PO DAILY [facility] Last Admin: 10/20/17 09:57 Dose: Not Given Folic Acid (Folic Acid) 1 mg PO DAILY [facility] Last Admin: 10/21/17 10:21 Dose: Not Given Vancomycin/Sodium Chloride (Vancomycin 1 Gm/Ns 200 Ml) 1 gm in 200 mls @ 166.7 mls/hr IVPB Q24H [facility] PRN Reason: Protocol Stop: 10/24/17 18:01 Last Admin: 10/21/17 17:23 Dose: 166.7 mls/hr Pantoprazole Sodium 80 mg/ (Sodium Chloride) 100 mls @ 10 mls/hr IVPB .Q10H [facility] PRN Reason: 8 MG/HR Last Admin: 10/22/17 06:30 Dose: Not Given Sodium Chloride (Sodium Chloride 0.9%) 1,000 mls @ 60 mls/hr IV .[id number] [facility] Last Admin: 10/22/17 01:00 Dose: 60 mls/hr Insulin Aspart (Novolog) 0 unit SC Q6H [facility] PRN Reason: Protocol Last Admin: 10/22/17 06:04 Dose: 3 unit Morphine Sulfate (Morphine) 2 mg IVP Q4 PRN PRN Reason: Pain, severe (8-10) Last Admin: 10/20/17 08:05 Dose: 2 mg Mupirocin (Bactroban 2% Nasal) 0.5 gm BROOK BID [facility] Last Admin: 10/21/17 17:23 Dose: 0.5 gm Phenytoin (Dilantin) 100 mg IVP Q8H [facility] Last Admin: 10/22/17 04:45 Dose: 100 mg - Labs Labs: 10/22/17 06:09 10/22/17 06:10 PT 11.9 SECONDS (9.7-12.2) 10/20/17 10:05 INR 1.1 10/20/17 10:05 APTT 18 SECONDS (21-34) L D 10/20/17 10:05 - Constitutional Appears: Non-toxic, No Acute Distress - Head Exam Head Exam: NORMAL INSPECTION - Eye Exam Eye Exam: EOMI, Normal appearance - ENT Exam ENT Exam: Mucous Membranes Moist - Respiratory Exam Respiratory Exam: Clear to Ausculation Bilateral - Cardiovascular Exam Cardiovascular Exam: Clicks, +S1, +S2 Additional comments: mid sternal surgical scar present - GI/Abdominal Exam GI & Abdominal Exam: Soft, Normal Bowel Sounds Additional comments: non tender to palpation in four quadrants - Extremities Exam Extremities Exam: Normal Inspection - Skin Skin Exam: Dry, Intact, Normal Color, Warm Assessment and Plan - Assessment and Plan (Free Text) Assessment: CAD s/p mitral/aortic mechanical valve replacement Osteomyelitis Anemia, rectal bleeding CT angio from yesterday reviewed by me, no signs of active bleeding noted Plan: - Continue to monitor H/H, s/p 2 units PRBC transfusion - Continue with PPI infusion - Clear liquid diet as tolerated - Given ongoing overt GI bleeding without established source, will plan for repeat endoscopic evaluation tomorrow with push enteroscopy and colonoscopy. Differential includes diverticular, small bowel etiologies. Will administer another 2 L Golytely bowel preparation today, NPO after midnight.
--- NOTE | 2017-10-22 08:38 | CP.PCM.PN ---
Subjective - Date & Time of Evaluation Date of Evaluation: 10/22/17 Time of Evaluation: 08:37 - Subjective Subjective: Events overnight reviewed. PAtient being prepped for endscopy Objective - Vital Signs/Intake and Output Vital Signs (last 24 hours): Temp Pulse Resp BP Pulse Ox 98 F 97 H 21 127/54 L 97 10/22/17 04:00 10/22/17 07:15 10/22/17 07:15 10/22/17 07:15 10/22/17 07:15 Intake and Output: 10/22/17 10/22/17 06:59 18:59 Intake Total 2220 70 Output Total 1425 Balance 795 70 - Medications Medications: Current Medications Amlodipine Besylate (Norvasc) 10 mg PO DAILY [facility] Last Admin: 10/20/17 09:57 Dose: Not Given Folic Acid (Folic Acid) 1 mg PO DAILY [facility] Last Admin: 10/21/17 10:21 Dose: Not Given Vancomycin/Sodium Chloride (Vancomycin 1 Gm/Ns 200 Ml) 1 gm in 200 mls @ 166.7 mls/hr IVPB Q24H [facility] PRN Reason: Protocol Stop: 10/24/17 18:01 Last Admin: 10/21/17 17:23 Dose: 166.7 mls/hr Pantoprazole Sodium 80 mg/ (Sodium Chloride) 100 mls @ 10 mls/hr IVPB .Q10H [facility] PRN Reason: 8 MG/HR Last Admin: 10/22/17 06:30 Dose: Not Given Sodium Chloride (Sodium Chloride 0.9%) 1,000 mls @ 60 mls/hr IV .[id number] [facility] Last Admin: 10/22/17 01:00 Dose: 60 mls/hr Insulin Aspart (Novolog) 0 unit SC Q6H [facility] PRN Reason: Protocol Last Admin: 10/22/17 06:04 Dose: 3 unit Morphine Sulfate (Morphine) 2 mg IVP Q4 PRN PRN Reason: Pain, severe (8-10) Last Admin: 10/20/17 08:05 Dose: 2 mg Mupirocin (Bactroban 2% Nasal) 0.5 gm BROOK BID [facility] Last Admin: 10/21/17 17:23 Dose: 0.5 gm Phenytoin (Dilantin) 100 mg IVP Q8H [facility] Last Admin: 10/22/17 04:45 Dose: 100 mg - Labs Labs: 10/22/17 06:09 10/22/17 06:10 PT 11.9 SECONDS (9.7-12.2) 10/20/17 10:05 INR 1.1 10/20/17 10:05 APTT 18 SECONDS (21-34) L D 10/20/17 10:05 - Constitutional Appears: Well - Head Exam Head Exam: ATRAUMATIC - ENT Exam ENT Exam: Mucous Membranes Moist - Neck Exam Neck Exam: Normal Inspection - Respiratory Exam Respiratory Exam: NORMAL BREATHING PATTERN - Cardiovascular Exam Cardiovascular Exam: REGULAR RHYTHM, +S1, +S2, Murmur Additional comments: click - Extremities Exam Extremities Exam: Normal Inspection Assessment and Plan - Assessment and Plan (Free Text) Assessment: -Acute blood loss: anemia: s/p EGD and colonoscopy, and bleeding scan, lkely diagnosis as per cardiology consultant is Small bowel bleed,off all AC and antiplatelets, 2 units PRBC to be transfused today -CT angio revealed no active bleeding -continue PPI -Patient remains hemodynamically stable -continue serial cbc and transfuse as needed -contineu vanco for left toe infection (MRSA) -Patient remains hemodyanmically stable with episodic blood loss from GI tract. -continue dvt/pud ppx: scds/protonix
[2017-10-22] MEDS: Mupirocin 2% Ointment (NASAL) NAS SCH ×2 (09:33→17:12)
[2017-10-22] MEDS: Morphine 4 MG/ML VIAL IVP PRN (09:35)
--- NOTE | 2017-10-22 16:09 | CP.PCM.PN ---
Subjective - Date & Time of Evaluation Date of Evaluation: 10/22/17 Time of Evaluation: 08:00 - Subjective Subjective: + Mrsa foot and nose IV rx in progress Objective - Vital Signs/Intake and Output Vital Signs (last 24 hours): Temp Pulse Resp BP Pulse Ox 98.4 F 86 16 129/64 93 L 10/22/17 12:00 10/22/17 15:00 10/22/17 15:00 10/22/17 13:50 10/22/17 13:00 Intake and Output: 10/22/17 10/22/17 06:59 18:59 Intake Total 2220 2250 Output Total 1425 800 Balance 795 1450 - Medications Medications: Current Medications Amlodipine Besylate (Norvasc) 10 mg PO DAILY [facility] Last Admin: 10/20/17 09:57 Dose: Not Given Folic Acid (Folic Acid) 1 mg PO DAILY [facility] Last Admin: 10/22/17 09:34 Dose: 1 mg Vancomycin/Sodium Chloride (Vancomycin 1 Gm/Ns 200 Ml) 1 gm in 200 mls @ 166.7 mls/hr IVPB Q24H [facility] PRN Reason: Protocol Stop: 10/24/17 18:01 Last Admin: 10/21/17 17:23 Dose: 166.7 mls/hr Pantoprazole Sodium 80 mg/ (Sodium Chloride) 100 mls @ 10 mls/hr IVPB .Q10H [facility] PRN Reason: 8 MG/HR Last Admin: 10/22/17 15:42 Dose: 10 mls/hr Sodium Chloride (Sodium Chloride 0.9%) 1,000 mls @ 60 mls/hr IV .[id number] [facility] Last Admin: 10/22/17 01:00 Dose: 60 mls/hr Insulin Aspart (Novolog) 0 unit SC Q6H [facility] PRN Reason: Protocol Last Admin: 10/22/17 11:49 Dose: 4 unit Mupirocin (Bactroban 2% Nasal) 0.5 gm BROOK BID [facility] Last Admin: 10/22/17 09:33 Dose: 0.5 gm Phenytoin (Dilantin) 100 mg IVP Q8H [facility] Last Admin: 10/22/17 11:49 Dose: 100 mg - Labs Labs: 10/22/17 06:09 10/22/17 06:10 PT 11.9 SECONDS (9.7-12.2) 10/20/17 10:05 INR 1.1 10/20/17 10:05 APTT 18 SECONDS (21-34) L D 10/20/17 10:05 - Constitutional Appears: Non-toxic, Chronically Ill - Head Exam Head Exam: NORMOCEPHALIC - Eye Exam Eye Exam: absent: Scleral icterus - ENT Exam ENT Exam: Mucous Membranes Dry - Neck Exam Neck Exam: absent: Lymphadenopathy - Respiratory Exam Respiratory Exam: Decreased Breath Sounds - Cardiovascular Exam Cardiovascular Exam: REGULAR RHYTHM - GI/Abdominal Exam GI & Abdominal Exam: Distended - Rectal Exam Rectal Exam: Deferred Assessment and Plan (1) Anemia Status: Acute (2) Toe gangrene Status: Acute (3) CAD (coronary artery disease) Status: Chronic (4) Dyslipidemia Status: Chronic (5) PVD (peripheral vascular disease) Status: Chronic (6) Uncontrolled diabetes mellitus Status: Chronic
[2017-10-22] MEDS: Vancomycin 1 gm/NS 200 ml 1 GM/200 ML BAG IVPB SCH (17:13)
[2017-10-22] MEDS ORDERED: Bisacodyl 5mg EC Tab PO ONE (17:27)
--- NOTE | 2017-10-22 18:58 | PN ---
DATE: 10/22/2017 SUBJECTIVE: The patient denies chest pain or shortness of breath and she denies leg pain. No reported ventricular tachycardia on the monitor. PHYSICAL EXAMINATION: VITAL SIGNS: Blood pressure 123/54, heart rate 98, respirations 17, temperature 98.4. HEENT: Pale conjunctivae. CHEST: Clear. HEART: S1 and S2, regular. EXTREMITIES: Trace leg edema. LABORATORY DATA: Today's SMA-7: Sodium 138, potassium 4.1, chloride 109, CO2 19, glucose 164, BUN 11, creatinine 1.0. Subsequent blood sugar was 333. Today's hemoglobin and hematocrit after 2 packed RBC transfusions yesterday is 8.7 and 25.4; white count and platelet count are within normal limit. ASSESSMENT: 1. Lower gastrointestinal bleeding. 2. Status post aortic and mitral valve replacement. 3. Peripheral vascular disease, status post recent left lower extremity stenting at [facility]. 4. Uncontrolled diabetes mellitus. 5. Anemia. 6. History of seizure disorder. RECOMMENDATIONS: Continue current IV Dilantin 100 mg every 8 hours. Continue Norvasc 10 mg once a day, IV Protonix, and continue as infusion and continue normal saline 60 mL/hour and IV vancomycin at 1 gm daily. The plan is to perform colonoscopy tomorrow. The most recent vancomycin level yesterday is 11.3. I recommend obtaining Dilantin level in a.m. Kraig Sheldon MD
[2017-10-22] MEDS ORDERED: (Novolog) Insulin Aspart, Recombinant 100 u/ml 10 ml vial SC SCH (19:08)
--- NOTE | 2017-10-22 23:51 | CP.PCM.PN ---
Subjective - Date & Time of Evaluation Date of Evaluation: 10/22/17 Time of Evaluation: 18:00 - Subjective Subjective: Pt seen and evalauted, GI bleed is resolved, she had 1 small bowel movement with little blood , pt is on medical management. + Mrsa foot and nose, IV rx in progress Objective - Vital Signs/Intake and Output Vital Signs (last 24 hours): Temp Pulse Resp BP Pulse Ox 98.3 F 85 13 146/55 L 99 10/22/17 20:00 10/22/17 22:00 10/22/17 22:00 10/22/17 21:51 10/22/17 22:00 Intake and Output: 10/22/17 10/23/17 18:59 06:59 Intake Total 2740 440 Output Total 800 1 Balance 1940 439 - Medications Medications: Current Medications Amlodipine Besylate (Norvasc) 10 mg PO DAILY [facility] Last Admin: 10/20/17 09:57 Dose: Not Given Folic Acid (Folic Acid) 1 mg PO DAILY [facility] Last Admin: 10/22/17 09:34 Dose: 1 mg Vancomycin/Sodium Chloride (Vancomycin 1 Gm/Ns 200 Ml) 1 gm in 200 mls @ 166.7 mls/hr IVPB Q24H [facility] PRN Reason: Protocol Stop: 10/24/17 18:01 Last Admin: 10/22/17 17:13 Dose: 166.7 mls/hr Pantoprazole Sodium 80 mg/ (Sodium Chloride) 100 mls @ 10 mls/hr IVPB .Q10H [facility] PRN Reason: 8 MG/HR Last Admin: 10/22/17 21:11 Dose: 10 mls/hr Sodium Chloride (Sodium Chloride 0.9%) 1,000 mls @ 100 mls/hr IV .Q10H [facility] Last Admin: 10/22/17 19:30 Dose: 100 mls/hr Insulin Aspart (Novolog) 0 unit SC Q6H [facility] PRN Reason: Protocol Morphine Sulfate (Morphine) 2 mg IV Q4H PRN PRN Reason: Pain, severe (8-10) Mupirocin (Bactroban 2% Nasal) 0.5 gm BROOK BID [facility] Last Admin: 10/22/17 17:12 Dose: 0.5 gm Phenytoin (Dilantin) 100 mg IVP Q8H [facility] Last Admin: 10/22/17 19:46 Dose: 100 mg - Labs Labs: 10/22/17 06:09 10/22/17 06:10 PT 11.9 SECONDS (9.7-12.2) 10/20/17 10:05 INR 1.1 10/20/17 10:05 APTT 18 SECONDS (21-34) L D 10/20/17 10:05 - Constitutional Appears: No Acute Distress - Head Exam Head Exam: ATRAUMATIC, NORMAL INSPECTION, NORMOCEPHALIC - Eye Exam Eye Exam: EOMI, Normal appearance, PERRL Pupil Exam: NORMAL ACCOMODATION, PERRL - Respiratory Exam Respiratory Exam: Decreased Breath Sounds, Rales, Rhonchi - Cardiovascular Exam Cardiovascular Exam: REGULAR RHYTHM, +S1, +S2. absent: Murmur - GI/Abdominal Exam GI & Abdominal Exam: Soft, Normal Bowel Sounds. absent: Tenderness - Rectal Exam Rectal Exam: Deferred Assessment and Plan (1) GI bleed Status: Acute (2) Anemia Status: Acute (3) Toe gangrene Status: Acute (4) CAD (coronary artery disease) Status: Chronic
[2017-10-23 00:13] LABS: PHENYTOIN,FREE 0.8 mg/L (1.0-2.0)
[2017-10-23] MEDS: (Novolog) Insulin Aspart, Recombinant 100 u/ml 10 ml vial SC SCH ×4 (00:37→17:33)
[2017-10-23] MEDS: Pantoprazole 80 MG in Sodium Chloride 0.9% 100 ML IVPB SCH ×2 (04:16→17:20)
[2017-10-23] MEDS: Sodium Chloride 0.9% 1,000 ML IV SCH ×3 (04:17→20:45)
[2017-10-23] MEDS: Phenytoin 100 mg/2 ml Inj IVP SCH ×3 (04:28→20:47)
[2017-10-23 06:16] LABS: BASO % 0.4 % (0.0-2.0); EOS # 0.2 K/uL (0.0-0.7); EOS % 3.3 % (0.0-4.0); LYMPH # 1.5 K/uL (1.0-4.3); LYMPH % 21.5 % (20.0-40.0); MEAN CELL VOLUME 85.8 fL (81.0-99.0); MEAN CORPUSCULAR HGB CONC 33.9 g/dL (33.0-37.0); MEAN PLATELET VOLUME 7.8 fL (7.2-11.7); MONO # 0.5 K/uL (0.0-0.8); MONO % 6.7 % (0.0-10.0); NEUT # 4.8 K/uL (1.8-7.0); NEUT % 68.1 % (50.0-75.0); RBC 2.25 Mil/uL (3.80-5.20); RED CELL DISTRIBUTION WIDTH 17.6 % (11.5-14.5)
[2017-10-23 06:19] LABS: HEMOGLOBIN 6.5 g/dL (11.0-16.0)
[2017-10-23 06:32] LABS: ALB/GLOB RATIO 0.8 (1.0-2.1); ALBUMIN 2.2 g/dL (3.5-5.0); ALT/SGPT 16 U/L (9-52); AST/SGOT 16 U/L (14-36); BLOOD UREA NITROGEN 6 mg/dL (7-17); CALCIUM 7.6 mg/dl (8.6-10.4); GFR AFRICAN-AMERICAN > 60; GFR NON-AFRICAN AMERICAN > 60
--- NOTE | 2017-10-23 08:13 | CP.CCUPN ---
<Nicolas Zavala - Last Filed: 10/23/17 17:21> CCU Subjective - Physician Review Subjective (Free Text): 10/23/17 08:14 Patient seen and examined at bedside. Complaining of fatigue. NPO for repeat EGD and colonoscopy today. CCU Objective - Vital Signs / Intake & Output Vital Signs (Last 4 hours): Vital Signs Temp Pulse Resp BP Pulse Ox 10/23/17 08:00 98 H 16 98 10/23/17 07:49 100 H 20 137/59 L 97 10/23/17 07:30 98.4 F 10/23/17 07:18 88 11 L 112/53 L 99 10/23/17 07:00 93 H 17 98 10/23/17 06:53 110/51 L 10/23/17 06:00 107 H 21 130/50 L 95 10/23/17 05:51 130/50 L 10/23/17 05:00 101 H 19 96 10/23/17 04:51 126/55 L Intake and Output (Last 8hrs): Intake & Output 10/22/17 10/23/17 10/23/17 22:59 06:59 14:59 Intake Total 1000 880 120 Output Total 1000 2000 200 Balance 0 -1120 -80 Weight 219 lb 4.8 oz Intake: Intake, IV Amount 760 880 120 Purple port Right PICC 80 80 20 line Red Port Right Picc line 680 800 100 Oral 240 Output: Urine/Stool Mix 1000 2000 200 Other: # Voids Urine, Voided 1 # Bowel Movements 1 - Physical Exam Head: Positive for: Atraumatic, Normocephalic Pupils: Positive for: PERRL Extroacular Muscles: Positive for: EOMI Conjunctiva: Positive for: Normal Mouth: Positive for: Moist Mucous Membranes Neck: Positive for: Normal Range of Motion Respiratory/Chest: Positive for: Clear to Auscultation, Good Air Exchange. Negative for: Respiratory Distress, Accessory Muscle Use Cardiovascular: Positive for: Regular Rate and Rhythm, Normal S1, S2, Other ( systolic murmur). Negative for: Tachycardic Abdomen: Positive for: Normal Bowel Sounds. Negative for: Tenderness, Distention Upper Extremity: Positive for: Normal Inspection Lower Extremity: Positive for: Other (Right toe dressing intact) Neurological: Positive for: GCS=15 Skin: Positive for: Warm, Dry, Normal Color Psychiatric: Positive for: Alert, Oriented x 3 - Medications Active Medications: Active Medications Generic Name Dose Route Start Last Admin Trade Name Freq PRN Reason Stop Dose Admin Amlodipine Besylate 10 mg 10/15/17 10:00 10/20/17 09:57 Norvasc PO Not Given DAILY NYDIA Folic Acid 1 mg 10/15/17 10:00 10/22/17 09:34 Folic Acid PO 1 mg DAILY [facility]DIA Administration Vancomycin/Sodium Chloride 1 gm in 200 mls @ 166.7 mls/hr 10/19/17 18:00 03/03 17:13 Vancomycin 1 Gm/Ns 200 Ml IVPB 10/24/17 18:01 166.7 mls/hr Q24H [facility]DIA Administration Protocol Pantoprazole Sodium 80 mg/ 100 mls @ 10 mls/hr 10/19/17 18:30 10/23/17 04:16 Sodium Chloride IVPB Not Given .Q10H NYDIA 8 MG/HR Sodium Chloride 1,000 mls @ 100 mls/hr 10/22/17 19:09 10/23/17 04:17 Sodium Chloride 0.9% IV Not Given .Q10H [facility]DIA Insulin Aspart 0 unit 10/23/17 00:00 10/23/17 07:06 Novolog SC Not Given Q6H [facility] Protocol Morphine Sulfate 2 mg 10/22/17 16:17 Morphine IV Q4H PRN Pain, severe (8-10) Mupirocin 0.5 gm 10/21/17 10:00 10/22/17 17:12 Bactroban 2% Nasal BROOK 0.5 gm BID NYDIA Administration Phenytoin 100 mg 10/18/17 20:45 10/23/17 04:28 Dilantin IVP 100 mg Q8H NYDIA Administration - Patient Studies Lab Studies: Lab Studies 10/23/17 10/23/17 10/23/17 Range/Units 05:52 05:52 05:52 WBC 7.0 (4.8-10.8) K/uL RBC 2.25 L (3.80-5.20) Mil/uL Hgb 6.5 L* D (11.0-16.0) g/dL Hct 19.3 L (34.0-47.0) % MCV 85.8 (81.0-99.0) fL MCH 29.0 (27.0-31.0) pg MCHC 33.9 (33.0-37.0) g/dL RDW 17.6 H (11.5-14.5) % Plt Count 209 (130-400) K/uL MPV 7.8 (7.2-11.7) fL Neut % (Auto) 68.1 (50.0-75.0) % Lymph % (Auto) 21.5 (20.0-40.0) % [place] % (Auto) 6.7 (0.0-10.0) % Eos % (Auto) 3.3 (0.0-4.0) % Baso % (Auto) 0.4 (0.0-2.0) % Neut # (Auto) 4.8 (1.8-7.0) K/uL Lymph # (Auto) 1.5 (1.0-4.3) K/uL [place] # (Auto) 0.5 (0.0-0.8) K/uL Eos # (Auto) 0.2 (0.0-0.7) K/uL Baso # (Auto) 0.0 (0.0-0.2) K/uL Sodium 140 (132-148) mmol/L Potassium 4.0 (3.6-5.2) mmol/L Chloride 111 H (98-107) mmol/L Carbon Dioxide 21 L (22-30) mmol/L Anion Gap 11 (10-20) BUN 6 L (7-17) mg/dL Creatinine 0.8 (0.7-1.2) mg/dL Est GFR ( Amer) > 60 Est GFR (Non-Af Amer) > 60 POC Glucose (mg/dL) (65-110) mg/dL Random Glucose 271 H (65-105) mg/dL Calcium 7.6 L (8.6-10.4) mg/dl Phosphorus 2.5 (2.5-4.5) mg/dL Magnesium 1.5 L (1.6-2.3) mg/dL Total Bilirubin 0.2 (0.2-1.3) mg/dL AST 16 (14-36) U/L ALT 16 (9-52) U/L Alkaline Phosphatase 81 (38-126) U/L Total Protein 4.9 L (6.3-8.3) g/dL Albumin 2.2 L (3.5-5.0) g/dL Globulin 2.7 (2.2-3.9) gm/dL Albumin/Globulin Ratio 0.8 L (1.0-2.1) Phenytoin 6.6 L (10-20) ug/mL Free Phenytoin (1.0-2.0) mg/L Blood Type Antibody Screen 10/23/17 10/22/17 10/22/17 Range/Units 05:01 23:43 17:33 WBC (4.8-10.8) K/uL RBC (3.80-5.20) Mil/uL Hgb (11.0-16.0) g/dL Hct (34.0-47.0) % MCV (81.0-99.0) fL MCH (27.0-31.0) pg MCHC (33.0-37.0) g/dL RDW (11.5-14.5) % Plt Count (130-400) K/uL MPV (7.2-11.7) fL Neut % (Auto) (50.0-75.0) % Lymph % (Auto) (20.0-40.0) % [place] % (Auto) (0.0-10.0) % Eos % (Auto) (0.0-4.0) % Baso % (Auto) (0.0-2.0) % Neut # (Auto) (1.8-7.0) K/uL Lymph # (Auto) (1.0-4.3) K/uL [place] # (Auto) (0.0-0.8) K/uL Eos # (Auto) (0.0-0.7) K/uL Baso # (Auto) (0.0-0.2) K/uL Sodium (132-148) mmol/L Potassium (3.6-5.2) mmol/L Chloride (98-107) mmol/L Carbon Dioxide (22-30) mmol/L Anion Gap (10-20) BUN (7-17) mg/dL Creatinine (0.7-1.2) mg/dL Est GFR ( Amer) Est GFR (Non-Af Amer) POC Glucose (mg/dL) 285 H 312 H 333 H (65-110) mg/dL Random Glucose (65-105) mg/dL Calcium (8.6-10.4) mg/dl Phosphorus (2.5-4.5) mg/dL Magnesium (1.6-2.3) mg/dL Total Bilirubin (0.2-1.3) mg/dL AST (14-36) U/L ALT (9-52) U/L Alkaline Phosphatase (38-126) U/L Total Protein (6.3-8.3) g/dL Albumin (3.5-5.0) g/dL Globulin (2.2-3.9) gm/dL Albumin/Globulin Ratio (1.0-2.1) Phenytoin (10-20) ug/mL Free Phenytoin (1.0-2.0) mg/L Blood Type Antibody Screen 10/22/17 10/21/17 10/19/17 Range/Units 11:37 08:45 06:15 WBC (4.8-10.8) K/uL RBC (3.80-5.20) Mil/uL Hgb (11.0-16.0) g/dL Hct (34.0-47.0) % MCV (81.0-99.0) fL MCH (27.0-31.0) pg MCHC (33.0-37.0) g/dL RDW (11.5-14.5) % Plt Count (130-400) K/uL MPV (7.2-11.7) fL Neut % (Auto) (50.0-75.0) % Lymph % (Auto) (20.0-40.0) % [place] % (Auto) (0.0-10.0) % Eos % (Auto) (0.0-4.0) % Baso % (Auto) (0.0-2.0) % Neut # (Auto) (1.8-7.0) K/uL Lymph # (Auto) (1.0-4.3) K/uL [place] # (Auto) (0.0-0.8) K/uL Eos # (Auto) (0.0-0.7) K/uL Baso # (Auto) (0.0-0.2) K/uL Sodium (132-148) mmol/L Potassium (3.6-5.2) mmol/L Chloride (98-107) mmol/L Carbon Dioxide (22-30) mmol/L Anion Gap (10-20) BUN (7-17) mg/dL Creatinine (0.7-1.2) mg/dL Est GFR ( Amer) Est GFR (Non-Af Amer) POC Glucose (mg/dL) 333 H (65-110) mg/dL Random Glucose (65-105) mg/dL Calcium (8.6-10.4) mg/dl Phosphorus (2.5-4.5) mg/dL Magnesium (1.6-2.3) mg/dL Total Bilirubin (0.2-1.3) mg/dL AST (14-36) U/L ALT (9-52) U/L Alkaline Phosphatase (38-126) U/L Total Protein (6.3-8.3) g/dL Albumin (3.5-5.0) g/dL Globulin (2.2-3.9) gm/dL Albumin/Globulin Ratio (1.0-2.1) Phenytoin (10-20) ug/mL Free Phenytoin 0.8 L (1.0-2.0) mg/L Blood Type A POSITIVE Antibody Screen Negative Laboratory Results - last 24 hr 10/19/17 10/21/17 10/22/17 06:15 08:45 11:37 WBC RBC Hgb Hct MCV MCH MCHC RDW Plt Count MPV Neut % (Auto) Lymph % (Auto) [place] % (Auto) Eos % (Auto) Baso % (Auto) Neut # (Auto) Lymph # (Auto) [place] # (Auto) Eos # (Auto) Baso # (Auto) Sodium Potassium Chloride Carbon Dioxide Anion Gap BUN Creatinine Est GFR ( Amer) Est GFR (Non-Af Amer) POC Glucose (mg/dL) 333 H Random Glucose Calcium Phosphorus Magnesium Total Bilirubin AST ALT Alkaline Phosphatase Total Protein Albumin Globulin Albumin/Globulin Ratio Phenytoin Free Phenytoin 0.8 L Blood Type A POSITIVE Antibody Screen Negative 10/22/17 10/22/17 10/23/17 17:33 23:43 05:01 WBC RBC Hgb Hct MCV MCH MCHC RDW Plt Count MPV Neut % (Auto) Lymph % (Auto) [place] % (Auto) Eos % (Auto) Baso % (Auto) Neut # (Auto) Lymph # (Auto) [place] # (Auto) Eos # (Auto) Baso # (Auto) Sodium Potassium Chloride Carbon Dioxide Anion Gap BUN Creatinine Est GFR ( Amer) Est GFR (Non-Af Amer) POC Glucose (mg/dL) 333 H 312 H 285 H Random Glucose Calcium Phosphorus Magnesium Total Bilirubin AST ALT Alkaline Phosphatase Total Protein Albumin Globulin Albumin/Globulin Ratio Phenytoin Free Phenytoin Blood Type Antibody Screen 10/23/17 10/23/17 10/23/17 05:52 05:52 05:52 WBC 7.0 RBC 2.25 L Hgb 6.5 L* D Hct 19.3 L MCV 85.8 MCH 29.0 MCHC 33.9 RDW 17.6 H Plt Count 209 MPV 7.8 Neut % (Auto) 68.1 Lymph % (Auto) 21.5 [place] % (Auto) 6.7 Eos % (Auto) 3.3 Baso % (Auto) 0.4 Neut # (Auto) 4.8 Lymph # (Auto) 1.5 [place] # (Auto) 0.5 Eos # (Auto) 0.2 Baso # (Auto) 0.0 Sodium 140 Potassium 4.0 Chloride 111 H Carbon Dioxide 21 L Anion Gap 11 BUN 6 L Creatinine 0.8 Est GFR ( Amer) > 60 Est GFR (Non-Af Amer) > 60 POC Glucose (mg/dL) Random Glucose 271 H Calcium 7.6 L Phosphorus 2.5 Magnesium 1.5 L Total Bilirubin 0.2 AST 16 ALT 16 Alkaline Phosphatase 81 Total Protein 4.9 L Albumin 2.2 L Globulin 2.7 Albumin/Globulin Ratio 0.8 L Phenytoin 6.6 L Free Phenytoin Blood Type Antibody Screen Fingerstick Blood Sugar Results: 333 Critical Care Progress Note - Nutrition Nutrition: Nutrition Category Date Time Status NPO Diet [DIET] Diets 10/23/17 Breakfast Active Assessment/Plan - Assessment and Plan (Free Text) Assessment: Patient is a 57 year old female with past medical history of Diabetes, Mechanical aortic/mitral valve, chronic smoker, seizure disorder, PVD presented to the hospital initially for left toe infection. Was started on heparin drip. While on the floor patient started having bloody bowel movements. All anticoagulation on hold. Went for EGD prior which showed non-bleeding gastric ulcers and duodenitis. Transferred to the ICU for further monitoring Neuro AAOx3 Seizure disorder on Dilantin 100 mg IV Q8 Cardio Currently holding Norvasc 10 mg PO daily Monitor BP History of mitral and aortic mechanical valves, currently holding anticoagulation due to significant GI bleed Pulmonary saturating well on room air GI Protonix drip 8 cc/hr NPO for repeat EGD and colonoscopy Prior EGD showed multiple non-bleeding gastric ulcers and duodenitis Prior colonoscopy had inadequate preparation but did show much melena/coffee ground material throughout the colon Repeat EGD up to the jejunum negative However, repeat colonoscopy showed fresh pooling of blood from the region of the ileocecal valve indicating likely small bowel bleed f/u CT Angiogram abdomen/pelvis to assess source of bleed. We will see if IR can do an intervention. If not, then surgical exploration at this point would be indicated along with possible intraoperative endoscopy as well ID Left foot wound grew MRSA Vancomycin 1 gm Q24H Contact precaution Endocrine Novolog sliding scale O7Y--moowae dose Accuchecks Heme/Onc Hemoglobin 6.5 this morning Transfusing 3 units pRBCs Transfusing 2 units FFP After these 3 units of pRBCs, the patient will have received 12 in total on this admission GI/DVT Prophylaxis VTE ppx contraindicated due to GI bleed Protonix drip Dispo: Critical care Seen and discussed with Dr. Marie <Ryland Marie - Last Filed: 11/06/17 08:44> CCU Objective - Vital Signs / Intake & Output Vital Signs (Last 4 hours): Vital Signs Temp Pulse Resp BP Pulse Ox 11/06/17 07:00 98.8 F 76 20 137/72 99 Intake and Output (Last 8hrs): Intake & Output 11/05/17 11/06/17 11/06/17 22:59 06:59 14:59 Intake Total 440 Balance 440 Weight 205 lb Intake: Intake, IV Amount 200 Right Upper arm 200 Oral 240 Other: # Voids Urine, Voided 1 - Medications Active Medications: Active Medications Generic Name Dose Route Start Last Admin Trade Name Freq PRN Reason Stop Dose Admin Al Hydrox/Mg Hydrox/Simethicone 30 ml 10/29/17 08:25 10/30/17 17:32 Maalox Plus 30 Ml PO 30 ml Q6H PRN Administration Indigestion / Heartburn Amlodipine Besylate 10 mg 10/15/17 10:00 10/20/17 09:57 Norvasc PO Not Given DAILY NYDIA Enoxaparin Sodium 90 mg 11/02/17 14:00 11/05/17 09:56 Lovenox SC 90 mg Q12 NYDIA Administration Ferric Sodium Gluconate Complex 125 mg 10/29/17 10:00 11/05/17 09:55 Ferrlecit IVPB 11/06/17 10:01 125 mg DAILY NYDIA Administration Hydralazine HCl 10 mg 10/28/17 02:05 10/30/17 17:37 Apresoline IVP 10 mg Q6H PRN Administration Hypertension Folic Acid 1 mg/ Sodium 100.2 mls @ 60 mls/hr 10/27/17 10:00 11/05/17 09:55 Chloride IV 60 mls/hr DAILY NYDIA Administration Insulin Aspart 0 unit 10/26/17 18:00 11/06/17 05:55 Novolog SC 4 unit Q6 NYDIA Administration Protocol Losartan Potassium 50 mg 11/02/17 10:08 11/05/17 09:56 Cozaar PO 50 mg DAILY NYDIA Administration Metoprolol Succinate 25 mg 11/02/17 10:06 11/05/17 09:56 Toprol Xl PO 25 mg DAILY NYDIA Administration Mupirocin 0.5 gm 10/21/17 10:00 11/05/17 17:29 Bactroban 2% Nasal BROOK 0.5 gm BID NYDIA Administration Nitroglycerin 1 ea 10/28/17 00:00 11/06/17 05:46 Nitro-Bid 2% Oint TOP 1 ea Q6 NYDIA Administration Ondansetron HCl 4 mg 10/27/17 19:35 10/30/17 08:51 Zofran Inj IVP 4 mg Q6H PRN Administration Nausea/Vomiting Oxycodone/Acetaminophen 1 tab 11/04/17 11:37 11/06/17 07:55 Percocet 5/325 Mg Tab PO 11/07/17 11:38 1 tab Q6H PRN Administration Pain, moderate (4-7) Pantoprazole Sodium 40 mg 10/25/17 18:00 11/06/17 05:46 Protonix Inj IVP 40 mg Q12H NYDIA Administration Phenytoin 100 mg 10/18/17 20:45 11/06/17 04:45 Dilantin IVP 100 mg Q8H NYDIA Administration - Patient Studies Lab Studies: Lab Studies 11/06/17 11/06/17 11/05/17 Range/Units 07:18 05:49 23:58 WBC 7.3 (4.8-10.8) K/uL RBC 3.14 L (3.80-5.20) Mil/uL Hgb 9.2 L (11.0-16.0) g/dL Hct 27.5 L (34.0-47.0) % MCV 87.5 (81.0-99.0) fL MCH 29.4 (27.0-31.0) pg MCHC 33.6 (33.0-37.0) g/dL RDW 16.1 H (11.5-14.5) % Plt Count 328 (130-400) K/uL MPV 8.5 (7.2-11.7) fL POC Glucose (mg/dL) 224 H 241 H (65-110) mg/dL Vancomycin Trough (5.0-10.0) ug/mL 11/05/17 11/05/17 11/05/17 Range/Units 17:33 17:18 11:17 WBC (4.8-10.8) K/uL RBC (3.80-5.20) Mil/uL Hgb (11.0-16.0) g/dL Hct (34.0-47.0) % MCV (81.0-99.0) fL MCH (27.0-31.0) pg MCHC (33.0-37.0) g/dL RDW (11.5-14.5) % Plt Count (130-400) K/uL MPV (7.2-11.7) fL POC Glucose (mg/dL) 159 H 212 H (65-110) mg/dL Vancomycin Trough 9.3 (5.0-10.0) ug/mL Laboratory Results - last 24 hr 11/05/17 11/05/17 11/05/17 11:17 17:18 17:33 WBC RBC Hgb Hct MCV MCH MCHC RDW Plt Count MPV POC Glucose (mg/dL) 212 H 159 H Vancomycin Trough 9.3 11/05/17 11/06/17 11/06/17 23:58 05:49 07:18 WBC 7.3 RBC 3.14 L Hgb 9.2 L Hct 27.5 L MCV 87.5 MCH 29.4 MCHC 33.6 RDW 16.1 H Plt Count 328 MPV 8.5 POC Glucose (mg/dL) 241 H 224 H Vancomycin Trough Critical Care Progress Note - Nutrition Nutrition: Nutrition Category Date Time Status NPO Diet [DIET] Diets 11/06/17 Breakfast Active Attending/Attestation - Attestation I have personally seen and examined this patient.: Yes I have fully participated in the care of the patient.: Yes I have reviewed all pertinent clinical information: Yes
[2017-10-23] MEDS ORDERED: Midazolam 2 MG/2 ML VIAL ONE (09:22)
[2017-10-23] MEDS ORDERED: Propofol 10 mg/ml Inj (20 ML) ONE ×3 (09:22→10:49)
[2017-10-23] MEDS ORDERED: Lactated Ringer's 500 ML IV ONE ×3 (09:39→10:56)
[2017-10-23] MEDS: Mupirocin 2% Ointment (NASAL) NAS SCH ×2 (11:20→17:44)
[2017-10-23] MEDS: Magnesium Sulfate 1 gm in D5W 1 GM/100 ML BAG IVPB SCH ×2 (11:20→11:41)
[2017-10-23] MEDS ORDERED: Iodixanol 320 MG/ML 100 ML BOTTLE IV ONE (12:30)
[2017-10-23] MEDS: Morphine 4 MG/ML VIAL IV PRN (16:48)
--- NOTE | 2017-10-23 17:30 | CP.PCM.PCO ---
Physician Communication Note - Physician Communication Note Physician Communication Note: Keep NPO for possible OR on 10/24
[2017-10-23 18:09] LABS: BASO % 0.4 % (0.0-2.0); EOS # 0.2 K/uL (0.0-0.7); EOS % 2.2 % (0.0-4.0); HEMOGLOBIN 9.7 g/dL (11.0-16.0); LYMPH # 1.1 K/uL (1.0-4.3); LYMPH % 11.2 % (20.0-40.0); MEAN CELL VOLUME 85.2 fL (81.0-99.0); MEAN CORPUSCULAR HEMOGLOBIN 29.1 pg (27.0-31.0); MEAN CORPUSCULAR HGB CONC 34.1 g/dL (33.0-37.0); MEAN PLATELET VOLUME 8.2 fL (7.2-11.7); MONO # 0.5 K/uL (0.0-0.8); NEUT # 7.9 K/uL (1.8-7.0); NEUT % 81.2 % (50.0-75.0); NRBC % 0.1 % (0.0-2.0); RBC 3.32 Mil/uL (3.80-5.20); RED CELL DISTRIBUTION WIDTH 16.3 % (11.5-14.5); WHITE BLOOD COUNT 9.7 K/uL (4.8-10.8)
[2017-10-23] MEDS: Vancomycin 1 gm/NS 200 ml 1 GM/200 ML BAG IVPB SCH (20:43)
--- NOTE | 2017-10-23 21:23 | PN ---
DATE: SUBJECTIVE: The patient still has the pain. She is receiving 3 units of packed RBC transfusion and 2 units of fresh frozen plasma. EGD and colonoscopy were performed today. The finding of endoscopy; normal examined duodenum, gastritis, normal esophagus and colonoscopy revealed blood in the entire examined colon, diverticulosis in the ascending colon, internal hemorrhoids. The patient underwent CT angio of the pelvis and abdomen for the third time. Report is still pending. ASSESSMENT: 1. Intractable lower gastrointestinal bleeding. 2. 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 3. Peripheral vascular disease, status post recent stenting to the left lower extremity. 4. Gangrenous left big toe. 5. Significant anemia. Today's hemoglobin and hematocrit were 6.5 and 19.3. RECOMMENDATIONS: Case was discussed with the medical team in ICU. The patient will be given now morphine sulfate intravenously for her toe pain. Continue current IV vancomycin 1 gm daily, and Norvasc is on hold. Dilantin level today is 6.6 and oral Dilantin will be continued. The plan is to follow the CT angio of the abdomen and pelvis and if no interventional radiology procedure is planned, then surgical exploration will follow. Kraig Sheldon MD
--- NOTE | 2017-10-23 21:38 | CP.PCM.PN ---
Subjective - Date & Time of Evaluation Date of Evaluation: 10/23/17 Time of Evaluation: 19:35 - Subjective Subjective: Pt seen and examined, denies nausea, vomiting or any other complaint at this time. Objective - Vital Signs/Intake and Output Vital Signs (last 24 hours): Temp Pulse Resp BP Pulse Ox 98.2 F 91 H 17 134/56 L 95 10/23/17 20:00 10/23/17 21:23 10/23/17 21:23 10/23/17 21:23 10/23/17 21:23 Intake and Output: 10/23/17 10/24/17 18:59 06:59 Intake Total 1195 780 Output Total 1501 300 Balance -306 480 - Medications Medications: Current Medications Amlodipine Besylate (Norvasc) 10 mg PO DAILY [facility] Last Admin: 10/20/17 09:57 Dose: Not Given Folic Acid (Folic Acid) 1 mg PO DAILY [facility] Last Admin: 10/23/17 17:43 Dose: 1 mg Vancomycin/Sodium Chloride (Vancomycin 1 Gm/Ns 200 Ml) 1 gm in 200 mls @ 166.7 mls/hr IVPB Q24H [facility] PRN Reason: Protocol Stop: 10/24/17 18:01 Last Admin: 10/23/17 20:43 Dose: 166.7 mls/hr Pantoprazole Sodium 80 mg/ (Sodium Chloride) 100 mls @ 10 mls/hr IVPB .Q10H [facility]IA PRN Reason: 8 MG/HR Last Admin: 10/23/17 17:20 Dose: 10 mls/hr Sodium Chloride (Sodium Chloride 0.9%) 1,000 mls @ 100 mls/hr IV .Q10H [facility] Last Admin: 10/23/17 20:45 Dose: 100 mls/hr Insulin Aspart (Novolog) 0 unit SC Q6H [facility]DIA PRN Reason: Protocol Last Admin: 10/23/17 17:33 Dose: 3 unit Morphine Sulfate (Morphine) 2 mg IV Q4H PRN PRN Reason: Pain, severe (8-10) Last Admin: 10/23/17 16:48 Dose: 2 mg Mupirocin (Bactroban 2% Nasal) 0.5 gm BROOK BID [facility] Last Admin: 10/23/17 17:44 Dose: 0.5 gm Phenytoin (Dilantin) 100 mg IVP Q8H [facility] Last Admin: 10/23/17 20:47 Dose: 100 mg - Labs Labs: 10/23/17 18:04 10/23/17 05:52 PT 11.9 SECONDS (9.7-12.2) 10/20/17 10:05 INR 1.1 10/20/17 10:05 APTT 18 SECONDS (21-34) L D 10/20/17 10:05 Assessment and Plan (1) GI bleed Assessment & Plan: not actively bleeding s/p EGD, Colonoscopy pt H and H is stable Status: Acute (2) Anemia Status: Acute (3) Toe gangrene Status: Acute (4) CAD (coronary artery disease) Status: Chronic
[2017-10-24] MEDS: Sodium Chloride 0.9% 1,000 ML IV SCH ×3 (01:52→23:39)
[2017-10-24] MEDS: Pantoprazole 80 MG in Sodium Chloride 0.9% 100 ML IVPB SCH ×4 (02:32→19:15)
[2017-10-24] MEDS: Morphine 4 MG/ML VIAL IV PRN ×2 (03:21→18:03)
[2017-10-24] MEDS: Phenytoin 100 mg/2 ml Inj IVP SCH ×3 (03:51→21:00)
[2017-10-24] MEDS: (Novolog) Insulin Aspart, Recombinant 100 u/ml 10 ml vial SC SCH ×4 (06:19→18:22)
[2017-10-24 06:34] LABS: BASO % 0.5 % (0.0-2.0); EOS # 0.3 K/uL (0.0-0.7); EOS % 3.6 % (0.0-4.0); HEMOGLOBIN 9.1 g/dL (11.0-16.0); LYMPH # 1.5 K/uL (1.0-4.3); LYMPH % 17.6 % (20.0-40.0); MEAN CELL VOLUME 85.5 fL (81.0-99.0); MEAN CORPUSCULAR HEMOGLOBIN 29.9 pg (27.0-31.0); MEAN PLATELET VOLUME 8.5 fL (7.2-11.7); MONO # 0.5 K/uL (0.0-0.8); MONO % 5.8 % (0.0-10.0); NEUT % 72.5 % (50.0-75.0); RBC 3.05 Mil/uL (3.80-5.20); RED CELL DISTRIBUTION WIDTH 16.8 % (11.5-14.5); WHITE BLOOD COUNT 8.3 K/uL (4.8-10.8)
[2017-10-24 06:35] LABS: INR 1.1; PROTHROMBIN TIME 12.8 SECONDS (9.7-12.2)
[2017-10-24 06:50] LABS: ALBUMIN 2.4 g/dL (3.5-5.0); ALT/SGPT 17 U/L (9-52); AST/SGOT 18 U/L (14-36); BLOOD UREA NITROGEN 3 mg/dL (7-17); CALCIUM 7.3 mg/dl (8.6-10.4); GFR AFRICAN-AMERICAN > 60; GFR NON-AFRICAN AMERICAN > 60
--- NOTE | 2017-10-24 09:17 | CP.PCM.PN ---
<Valentino Lopez - Last Filed: 10/24/17 09:13> Subjective - Date & Time of Evaluation Date of Evaluation: 10/24/17 Time of Evaluation: 07:00 - Subjective Subjective: PGY5 GI Fellow Progress Note Patient seen and examined bedside this morning. The patient states that she had one episode of loose, bloody stool overnight. Denies any pain, dizziness, lightheadedness, nausea, vomiting. Has been maintained NPO for possible bowel resection today. 12 system ROS performed and negative except where stated. Objective - Vital Signs/Intake and Output Vital Signs (last 24 hours): Temp Pulse Resp BP Pulse Ox 98.4 F 77 16 143/43 L 100 10/24/17 08:54 10/24/17 08:54 10/24/17 08:54 10/24/17 08:54 10/24/17 08:00 Intake and Output: 10/24/17 10/24/17 06:59 18:59 Intake Total 1880 110 Output Total 800 Balance 1080 110 - Medications Medications: Current Medications Amlodipine Besylate (Norvasc) 10 mg PO DAILY [facility] Last Admin: 10/20/17 09:57 Dose: Not Given Folic Acid (Folic Acid) 1 mg PO DAILY [facility] Last Admin: 10/23/17 17:43 Dose: 1 mg Vancomycin/Sodium Chloride (Vancomycin 1 Gm/Ns 200 Ml) 1 gm in 200 mls @ 166.7 mls/hr IVPB Q24H [facility] PRN Reason: Protocol Stop: 10/24/17 18:01 Last Admin: 10/23/17 20:43 Dose: 166.7 mls/hr Pantoprazole Sodium 80 mg/ (Sodium Chloride) 100 mls @ 10 mls/hr IVPB .Q10H [facility] PRN Reason: 8 MG/HR Last Admin: 10/24/17 02:32 Dose: 10 mls/hr Sodium Chloride (Sodium Chloride 0.9%) 1,000 mls @ 100 mls/hr IV .Q10H [facility] Last Admin: 10/24/17 01:52 Dose: Not Given Insulin Aspart (Novolog) 0 unit SC Q6H [facility] PRN Reason: Protocol Last Admin: 10/24/17 06:19 Dose: Not Given Morphine Sulfate (Morphine) 2 mg IV Q4H PRN PRN Reason: Pain, severe (8-10) Last Admin: 10/24/17 03:21 Dose: 2 mg Mupirocin (Bactroban 2% Nasal) 0.5 gm BROOK BID [facility] Last Admin: 10/23/17 17:44 Dose: 0.5 gm Phenytoin (Dilantin) 100 mg IVP Q8H [facility] Last Admin: 10/24/17 03:51 Dose: 100 mg - Labs Labs: 10/24/17 06:22 10/24/17 06:22 PT 12.8 SECONDS (9.7-12.2) H 10/24/17 06:22 INR 1.1 10/24/17 06:22 APTT 30 SECONDS (21-34) 10/24/17 06:22 - Constitutional Appears: Non-toxic, No Acute Distress - Eye Exam Eye Exam: EOMI, PERRL - ENT Exam ENT Exam: Mucous Membranes Dry - Respiratory Exam Respiratory Exam: Clear to Ausculation Bilateral. absent: Rales, Rhonchi, Wheezes - Cardiovascular Exam Cardiovascular Exam: RRR, +S1, +S2 - GI/Abdominal Exam GI & Abdominal Exam: Soft, Normal Bowel Sounds. absent: Distended, Firm, Guarding, Rigid, Tenderness, Organomegaly - Extremities Exam Extremities Exam: Normal Inspection. absent: Pedal Edema - Neurological Exam Neurological Exam: Alert, Awake, Oriented x3 - Psychiatric Exam Psychiatric exam: Normal Affect, Normal Mood - Skin Skin Exam: Dry, Warm Assessment and Plan - Assessment and Plan (Free Text) Assessment: Patient is a 57yo female with history of peripheral vascular disease and concern for left great toe gangrene, CAD, anemia who presented to the ED referred by her electrician's helper for concern of osteomyelitis. Our service is consulted for anemia. -Acute blood loss anemia -Acute GI hemmorhage -H/O mitral/aortic mechanical valve replacement previously on anticoagulation -Left 1st toe gangrene -CAD -PVD Plan: -Pt s/p push enteroscopy and colonoscopy yesterday with blood noted throughout colon; none noted on push enteroscopy to jejunum -Suspect bleeding location to be in the distal small bowel -Appreciate surgical consultation and consideration for resection -Repeat CTA cannot identify location of bleeding -IR input appreciated -Consider DDAVP, continued blood product support for ongoing blood loss -Liquid diet OK if patient not going for surgery today -Will follow <Urban Cesar - Last Filed: 10/24/17 09:26> Objective - Vital Signs/Intake and Output Vital Signs (last 24 hours): Temp Pulse Resp BP Pulse Ox 98.4 F 77 16 143/43 L 100 10/24/17 08:54 10/24/17 08:54 10/24/17 08:54 10/24/17 08:54 10/24/17 08:00 Intake and Output: 10/24/17 10/24/17 06:59 18:59 Intake Total 1880 110 Output Total 800 Balance 1080 110 - Medications Medications: Current Medications Amlodipine Besylate (Norvasc) 10 mg PO DAILY [facility] Last Admin: 10/20/17 09:57 Dose: Not Given Folic Acid (Folic Acid) 1 mg PO DAILY [facility] Last Admin: 10/23/17 17:43 Dose: 1 mg Vancomycin/Sodium Chloride (Vancomycin 1 Gm/Ns 200 Ml) 1 gm in 200 mls @ 166.7 mls/hr IVPB Q24H [facility] PRN Reason: Protocol Stop: 10/24/17 18:01 Last Admin: 10/23/17 20:43 Dose: 166.7 mls/hr Pantoprazole Sodium 80 mg/ (Sodium Chloride) 100 mls @ 10 mls/hr IVPB .Q10H [facility] PRN Reason: 8 MG/HR Last Admin: 10/24/17 02:32 Dose: 10 mls/hr Sodium Chloride (Sodium Chloride 0.9%) 1,000 mls @ 100 mls/hr IV .Q10H [facility] Last Admin: 10/24/17 01:52 Dose: Not Given Insulin Aspart (Novolog) 0 unit SC Q6H [facility] PRN Reason: Protocol Last Admin: 10/24/17 06:19 Dose: Not Given Morphine Sulfate (Morphine) 2 mg IV Q4H PRN PRN Reason: Pain, severe (8-10) Last Admin: 10/24/17 03:21 Dose: 2 mg Mupirocin (Bactroban 2% Nasal) 0.5 gm BROOK BID [facility] Last Admin: 10/23/17 17:44 Dose: 0.5 gm Phenytoin (Dilantin) 100 mg IVP Q8H [facility] Last Admin: 10/24/17 03:51 Dose: 100 mg - Labs Labs: 10/24/17 06:22 10/24/17 06:22 PT 12.8 SECONDS (9.7-12.2) H 10/24/17 06:22 INR 1.1 10/24/17 06:22 APTT 30 SECONDS (21-34) 10/24/17 06:22 Attending/Attestation - Attestation I have personally seen and examined this patient.: Yes I have fully participated in the care of the patient.: Yes I have reviewed all pertinent clinical information, including history, physical exam and plan: Yes Notes (Text): 10/24/17 09:22 I have seen and examined patient with GI fellow. No acute events overnight, no bowel movements. She reports one bloody bowel movement this morning. No associated abdominal pain, nausea, vomiting. Tolerating PO liquids without difficulty. Review of vitals from this morning are normal. PVD Osteomyelitis History of aortic/mitral valve replacement - Clear liquid diet as tolerated - H/H stable, s/p PRBC transfusion yesterday - Continue with PPI therapy - Suggest addition of DDAVP for potential platelet dysfunction therapy given prior history of plavix use in setting of ongoing bleeding - Patient planned for potential surgical small bowel exploration today, will follow up results - Will continue to closely monitor patient clinical course
[2017-10-24] MEDS: Mupirocin 2% Ointment (NASAL) NAS SCH ×2 (09:30→17:25)
[2017-10-24] MEDS ORDERED: Desmopressin 20 MCG in Sodium Chloride 0.9% 50 ML IV ONE (09:34)
--- NOTE | 2017-10-24 10:29 | CP.CCUPN ---
<Nicolas Zavala - Last Filed: 10/24/17 15:14> CCU Subjective - Physician Review Subjective (Free Text): 10/23/17 08:14 Patient seen and examined at bedside. Complaining of fatigue. NPO for repeat EGD and colonoscopy today. 10/24/17 10:23 Patient seen and examined. Patient reports feeling a bit better than yesterday. She is anxiously anticipating OR later today. CCU Objective - Vital Signs / Intake & Output Vital Signs (Last 4 hours): Vital Signs Temp Pulse Resp BP Pulse Ox 10/24/17 10:00 79 15 95 10/24/17 09:56 73 20 166/58 H 93 L 10/24/17 09:54 98.5 F 77 16 156/58 H 10/24/17 09:24 98.4 F 78 13 170/62 H 97 10/24/17 09:09 98.4 F 75 13 159/60 H 97 10/24/17 09:00 80 13 98 10/24/17 08:54 98.4 F 77 16 143/43 L 10/24/17 08:49 73 11 L 143/43 L 97 10/24/17 08:00 98.5 F 77 16 100 10/24/17 07:49 145/60 10/24/17 07:30 76 11 L 143/36 L 100 10/24/17 07:00 78 12 100 Intake and Output (Last 8hrs): Intake & Output 10/23/17 10/24/17 10/24/17 22:59 06:59 14:59 Intake Total 1180 990 330 Output Total 1601 500 Balance -421 490 330 Weight 219 lb Intake: Intake, IV Amount 290 990 330 Purple port Right PICC 90 90 30 line Red Port Right Picc line 200 900 300 Oral 590 Blood Product 300 0 Apheresis Rbc Cp2d As3 Lr 0 1st Unit [id number] Output: Urine 1600 Urine, Voided 1600 Urine/Stool Mix 500 Emesis 1 - Physical Exam Head: Positive for: Atraumatic, Normocephalic Pupils: Positive for: PERRL Extroacular Muscles: Positive for: EOMI Conjunctiva: Positive for: Normal Mouth: Positive for: Moist Mucous Membranes Neck: Positive for: Normal Range of Motion Respiratory/Chest: Positive for: Clear to Auscultation, Good Air Exchange. Negative for: Respiratory Distress, Accessory Muscle Use Cardiovascular: Positive for: Regular Rate and Rhythm, Normal S1, S2, Other ( systolic murmur). Negative for: Tachycardic Abdomen: Positive for: Normal Bowel Sounds. Negative for: Tenderness, Distention Upper Extremity: Positive for: Normal Inspection Lower Extremity: Positive for: Other (Right toe dressing intact) Neurological: Positive for: GCS=15 Skin: Positive for: Warm, Dry, Normal Color Psychiatric: Positive for: Alert, Oriented x 3 - Medications Active Medications: Active Medications Generic Name Dose Route Start Last Admin Trade Name Freq PRN Reason Stop Dose Admin Amlodipine Besylate 10 mg 10/15/17 10:00 10/20/17 09:57 Norvasc PO Not Given DAILY NYDIA Folic Acid 1 mg 10/15/17 10:00 10/23/17 17:43 Folic Acid PO 1 mg DAILY NYDIA Administration Vancomycin/Sodium Chloride 1 gm in 200 mls @ 166.7 mls/hr 10/19/17 18:00 04/03 20:43 Vancomycin 1 Gm/Ns 200 Ml IVPB 10/24/17 18:01 166.7 mls/hr Q24H [facility]DIA Administration Protocol Pantoprazole Sodium 80 mg/ 100 mls @ 10 mls/hr 10/19/17 18:30 10/24/17 02:32 Sodium Chloride IVPB 10 mls/hr .Q10H NYDIA Administration 8 MG/HR Sodium Chloride 1,000 mls @ 100 mls/hr 10/22/17 19:09 10/24/17 01:52 Sodium Chloride 0.9% IV Not Given .Q10H [facility]DIA Insulin Aspart 0 unit 10/23/17 00:00 10/24/17 06:19 Novolog SC Not Given Q6H [facility]DIA Protocol Morphine Sulfate 2 mg 10/22/17 16:17 10/24/17 03:21 Morphine IV 2 mg Q4H PRN Administration Pain, severe (8-10) Mupirocin 0.5 gm 10/21/17 10:00 10/24/17 09:30 Bactroban 2% Nasal BROOK 0.5 gm BID NYDIA Administration Phenytoin 100 mg 10/18/17 20:45 10/24/17 03:51 Dilantin IVP 100 mg Q8H NYDIA Administration - Patient Studies Lab Studies: Lab Studies 04/05/0310/24/17 10/24/17 Range/Units 06:22 06:22 06:22 WBC 8.3 (4.8-10.8) K/uL RBC 3.05 L (3.80-5.20) Mil/uL Hgb 9.1 L (11.0-16.0) g/dL Hct 26.1 L (34.0-47.0) % MCV 85.5 (81.0-99.0) fL MCH 29.9 (27.0-31.0) pg MCHC 35.0 (33.0-37.0) g/dL RDW 16.8 H (11.5-14.5) % Plt Count 197 (130-400) K/uL MPV 8.5 (7.2-11.7) fL Neut % (Auto) 72.5 (50.0-75.0) % Lymph % (Auto) 17.6 L (20.0-40.0) % Terrell % (Auto) 5.8 (0.0-10.0) % Eos % (Auto) 3.6 (0.0-4.0) % Baso % (Auto) 0.5 (0.0-2.0) % Neut # (Auto) 6.0 (1.8-7.0) K/uL Lymph # (Auto) 1.5 (1.0-4.3) K/uL Terrell # (Auto) 0.5 (0.0-0.8) K/uL Eos # (Auto) 0.3 (0.0-0.7) K/uL Baso # (Auto) 0.0 (0.0-0.2) K/uL PT 12.8 H (9.7-12.2) SECONDS INR 1.1 APTT 30 (21-34) SECONDS Sodium 140 (132-148) mmol/L Potassium 3.9 (3.6-5.2) mmol/L Chloride 111 H (98-107) mmol/L Carbon Dioxide 20 L (22-30) mmol/L Anion Gap 14 (10-20) BUN 3 L (7-17) mg/dL Creatinine 0.8 (0.7-1.2) mg/dL Est GFR ( Amer) > 60 Est GFR (Non-Af Amer) > 60 POC Glucose (mg/dL) (65-110) mg/dL Random Glucose 186 H (65-105) mg/dL Calcium 7.3 L (8.6-10.4) mg/dl Phosphorus 2.8 (2.5-4.5) mg/dL Magnesium 1.6 (1.6-2.3) mg/dL Total Bilirubin 0.3 (0.2-1.3) mg/dL AST 18 (14-36) U/L ALT 17 (9-52) U/L Alkaline Phosphatase 82 (38-126) U/L Total Protein 5.0 L (6.3-8.3) g/dL Albumin 2.4 L (3.5-5.0) g/dL Globulin 2.5 (2.2-3.9) gm/dL Albumin/Globulin Ratio 1.0 (1.0-2.1) Blood Type Antibody Screen 10/24/17 10/24/17 10/23/17 Range/Units 05:05 00:38 20:43 WBC (4.8-10.8) K/uL RBC (3.80-5.20) Mil/uL Hgb (11.0-16.0) g/dL Hct (34.0-47.0) % MCV (81.0-99.0) fL MCH (27.0-31.0) pg MCHC (33.0-37.0) g/dL RDW (11.5-14.5) % Plt Count (130-400) K/uL MPV (7.2-11.7) fL Neut % (Auto) (50.0-75.0) % Lymph % (Auto) (20.0-40.0) % Terrell % (Auto) (0.0-10.0) % Eos % (Auto) (0.0-4.0) % Baso % (Auto) (0.0-2.0) % Neut # (Auto) (1.8-7.0) K/uL Lymph # (Auto) (1.0-4.3) K/uL Terrell # (Auto) (0.0-0.8) K/uL Eos # (Auto) (0.0-0.7) K/uL Baso # (Auto) (0.0-0.2) K/uL PT (9.7-12.2) SECONDS INR APTT (21-34) SECONDS Sodium (132-148) mmol/L Potassium (3.6-5.2) mmol/L Chloride (98-107) mmol/L Carbon Dioxide (22-30) mmol/L Anion Gap (10-20) BUN (7-17) mg/dL Creatinine (0.7-1.2) mg/dL Est GFR ( Amer) Est GFR (Non-Af Amer) POC Glucose (mg/dL) 181 H 175 H (65-110) mg/dL Random Glucose (65-105) mg/dL Calcium (8.6-10.4) mg/dl Phosphorus (2.5-4.5) mg/dL Magnesium (1.6-2.3) mg/dL Total Bilirubin (0.2-1.3) mg/dL AST (14-36) U/L ALT (9-52) U/L Alkaline Phosphatase (38-126) U/L Total Protein (6.3-8.3) g/dL Albumin (3.5-5.0) g/dL Globulin (2.2-3.9) gm/dL Albumin/Globulin Ratio (1.0-2.1) Blood Type A POSITIVE Antibody Screen Negative 10/23/17 10/23/17 10/23/17 Range/Units 18:04 17:22 12:07 WBC 9.7 (4.8-10.8) K/uL RBC 3.32 L (3.80-5.20) Mil/uL Hgb 9.7 L D (11.0-16.0) g/dL Hct 28.3 L (34.0-47.0) % MCV 85.2 (81.0-99.0) fL MCH 29.1 (27.0-31.0) pg MCHC 34.1 (33.0-37.0) g/dL RDW 16.3 H (11.5-14.5) % Plt Count 193 (130-400) K/uL MPV 8.2 (7.2-11.7) fL Neut % (Auto) 81.2 H (50.0-75.0) % Lymph % (Auto) 11.2 L (20.0-40.0) % Terrell % (Auto) 5.0 (0.0-10.0) % Eos % (Auto) 2.2 (0.0-4.0) % Baso % (Auto) 0.4 (0.0-2.0) % Neut # (Auto) 7.9 H (1.8-7.0) K/uL Lymph # (Auto) 1.1 (1.0-4.3) K/uL Terrell # (Auto) 0.5 (0.0-0.8) K/uL Eos # (Auto) 0.2 (0.0-0.7) K/uL Baso # (Auto) 0.0 (0.0-0.2) K/uL PT (9.7-12.2) SECONDS INR APTT (21-34) SECONDS Sodium (132-148) mmol/L Potassium (3.6-5.2) mmol/L Chloride (98-107) mmol/L Carbon Dioxide (22-30) mmol/L Anion Gap (10-20) BUN (7-17) mg/dL Creatinine (0.7-1.2) mg/dL Est GFR ( Amer) Est GFR (Non-Af Amer) POC Glucose (mg/dL) 221 H 320 H (65-110) mg/dL Random Glucose (65-105) mg/dL Calcium (8.6-10.4) mg/dl Phosphorus (2.5-4.5) mg/dL Magnesium (1.6-2.3) mg/dL Total Bilirubin (0.2-1.3) mg/dL AST (14-36) U/L ALT (9-52) U/L Alkaline Phosphatase (38-126) U/L Total Protein (6.3-8.3) g/dL Albumin (3.5-5.0) g/dL Globulin (2.2-3.9) gm/dL Albumin/Globulin Ratio (1.0-2.1) Blood Type Antibody Screen 10/21/17 Range/Units 08:45 WBC (4.8-10.8) K/uL RBC (3.80-5.20) Mil/uL Hgb (11.0-16.0) g/dL Hct (34.0-47.0) % MCV (81.0-99.0) fL MCH (27.0-31.0) pg MCHC (33.0-37.0) g/dL RDW (11.5-14.5) % Plt Count (130-400) K/uL MPV (7.2-11.7) fL Neut % (Auto) (50.0-75.0) % Lymph % (Auto) (20.0-40.0) % Terrell % (Auto) (0.0-10.0) % Eos % (Auto) (0.0-4.0) % Baso % (Auto) (0.0-2.0) % Neut # (Auto) (1.8-7.0) K/uL Lymph # (Auto) (1.0-4.3) K/uL Terrell # (Auto) (0.0-0.8) K/uL Eos # (Auto) (0.0-0.7) K/uL Baso # (Auto) (0.0-0.2) K/uL PT (9.7-12.2) SECONDS INR APTT (21-34) SECONDS Sodium (132-148) mmol/L Potassium (3.6-5.2) mmol/L Chloride (98-107) mmol/L Carbon Dioxide (22-30) mmol/L Anion Gap (10-20) BUN (7-17) mg/dL Creatinine (0.7-1.2) mg/dL Est GFR ( Amer) Est GFR (Non-Af Amer) POC Glucose (mg/dL) (65-110) mg/dL Random Glucose (65-105) mg/dL Calcium (8.6-10.4) mg/dl Phosphorus (2.5-4.5) mg/dL Magnesium (1.6-2.3) mg/dL Total Bilirubin (0.2-1.3) mg/dL AST (14-36) U/L ALT (9-52) U/L Alkaline Phosphatase (38-126) U/L Total Protein (6.3-8.3) g/dL Albumin (3.5-5.0) g/dL Globulin (2.2-3.9) gm/dL Albumin/Globulin Ratio (1.0-2.1) Blood Type A POSITIVE Antibody Screen Negative Laboratory Results - last 24 hr 10/21/17 10/23/17 10/23/17 08:45 12:07 17:22 WBC RBC Hgb Hct MCV MCH MCHC RDW Plt Count MPV Neut % (Auto) Lymph % (Auto) Terrell % (Auto) Eos % (Auto) Baso % (Auto) Neut # (Auto) Lymph # (Auto) Terrell # (Auto) Eos # (Auto) Baso # (Auto) PT INR APTT Sodium Potassium Chloride Carbon Dioxide Anion Gap BUN Creatinine Est GFR ( Amer) Est GFR (Non-Af Amer) POC Glucose (mg/dL) 320 H 221 H Random Glucose Calcium Phosphorus Magnesium Total Bilirubin AST ALT Alkaline Phosphatase Total Protein Albumin Globulin Albumin/Globulin Ratio Blood Type A POSITIVE Antibody Screen Negative 10/23/17 10/23/17 10/24/17 18:04 20:43 00:38 WBC 9.7 RBC 3.32 L Hgb 9.7 L D Hct 28.3 L MCV 85.2 MCH 29.1 MCHC 34.1 RDW 16.3 H Plt Count 193 MPV 8.2 Neut % (Auto) 81.2 H Lymph % (Auto) 11.2 L Terrell % (Auto) 5.0 Eos % (Auto) 2.2 Baso % (Auto) 0.4 Neut # (Auto) 7.9 H Lymph # (Auto) 1.1 Terrell # (Auto) 0.5 Eos # (Auto) 0.2 Baso # (Auto) 0.0 PT INR APTT Sodium Potassium Chloride Carbon Dioxide Anion Gap BUN Creatinine Est GFR ( Amer) Est GFR (Non-Af Amer) POC Glucose (mg/dL) 175 H Random Glucose Calcium Phosphorus Magnesium Total Bilirubin AST ALT Alkaline Phosphatase Total Protein Albumin Globulin Albumin/Globulin Ratio Blood Type A POSITIVE Antibody Screen Negative 10/24/17 10/24/17 10/24/17 05:05 06:22 06:22 WBC 8.3 RBC 3.05 L Hgb 9.1 L Hct 26.1 L MCV 85.5 MCH 29.9 MCHC 35.0 RDW 16.8 H Plt Count 197 MPV 8.5 Neut % (Auto) 72.5 Lymph % (Auto) 17.6 L Terrell % (Auto) 5.8 Eos % (Auto) 3.6 Baso % (Auto) 0.5 Neut # (Auto) 6.0 Lymph # (Auto) 1.5 Terrell # (Auto) 0.5 Eos # (Auto) 0.3 Baso # (Auto) 0.0 PT INR APTT Sodium 140 Potassium 3.9 Chloride 111 H Carbon Dioxide 20 L Anion Gap 14 BUN 3 L Creatinine 0.8 Est GFR ( Amer) > 60 Est GFR (Non-Af Amer) > 60 POC Glucose (mg/dL) 181 H Random Glucose 186 H Calcium 7.3 L Phosphorus 2.8 Magnesium 1.6 Total Bilirubin 0.3 AST 18 ALT 17 Alkaline Phosphatase 82 Total Protein 5.0 L Albumin 2.4 L Globulin 2.5 Albumin/Globulin Ratio 1.0 Blood Type Antibody Screen 10/24/17 06:22 WBC RBC Hgb Hct MCV MCH MCHC RDW Plt Count MPV Neut % (Auto) Lymph % (Auto) Terrell % (Auto) Eos % (Auto) Baso % (Auto) Neut # (Auto) Lymph # (Auto) Terrell # (Auto) Eos # (Auto) Baso # (Auto) PT 12.8 H INR 1.1 APTT 30 Sodium Potassium Chloride Carbon Dioxide Anion Gap BUN Creatinine Est GFR ( Amer) Est GFR (Non-Af Amer) POC Glucose (mg/dL) Random Glucose Calcium Phosphorus Magnesium Total Bilirubin AST ALT Alkaline Phosphatase Total Protein Albumin Globulin Albumin/Globulin Ratio Blood Type Antibody Screen Fingerstick Blood Sugar Results: 181 Critical Care Progress Note - Nutrition Nutrition: Nutrition Category Date Time Status NPO Diet [DIET] Diets 10/24/17 Breakfast Active Assessment/Plan - Assessment and Plan (Free Text) Assessment: Patient is a 57 year old female with past medical history of Diabetes, Mechanical aortic/mitral valve, chronic smoker, seizure disorder, PVD presented to the hospital initially for left toe infection. Was started on heparin drip. While on the floor patient started having bloody bowel movements. All anticoagulation on hold. Went for EGD prior which showed non-bleeding gastric ulcers and duodenitis. Transferred to the ICU for further monitoring Neuro AAOx3 Seizure disorder on Dilantin 100 mg IV Q8 Cardio Currently holding Norvasc 10 mg PO daily Monitor BP History of mitral and aortic mechanical valves, currently holding anticoagulation due to significant GI bleed Pulmonary saturating well on room air GI Protonix drip 8 cc/hr Prior EGD showed multiple non-bleeding gastric ulcers and duodenitis Prior colonoscopy had inadequate preparation but did show much melena/coffee ground material throughout the colon Repeat EGD up to the jejunum negative However, repeat colonoscopy showed fresh pooling of blood from the region of the ileocecal valve indicating likely small bowel bleed Today on 10/24/17, patient underwent exploratory laparotomy where a questionable lesion proximal to the ligament of Trietz was resected as well as the distal small bowel in an effort to stop the patient's GI bleed. The regions were then anastomosed. Patient NPO tonight and is to remain with NGT ID Left foot wound grew MRSA Vancomycin 1 gm Q24H Contact precaution Endocrine Novolog sliding scale [id number] dose Accuchecks Heme/Onc Hemoglobin 9.1 this morning. Receiving 1 unit of pRBCs this morning prior to surgery which makes it so that the patient has received 13 units pRBCs in total on this admission GI/DVT Prophylaxis VTE ppx contraindicated due to GI bleed Protonix drip Dispo: Critical care Seen and discussed with Dr. Otero <David Otero - Last Filed: 10/24/17 16:48> CCU Objective - Vital Signs / Intake & Output Vital Signs (Last 4 hours): Vital Signs Temp Pulse Resp BP Pulse Ox 10/24/17 16:06 87 17 156/67 H 96 10/24/17 16:00 97.7 F 86 16 96 10/24/17 15:51 85 16 176/68 H 96 10/24/17 15:38 86 16 180/76 H 97 10/24/17 15:19 98 H 13 189/69 H 100 10/24/17 15:14 85 100 Intake and Output (Last 8hrs): Intake & Output 10/24/17 10/24/17 10/24/17 06:59 14:59 22:59 Intake Total 990 531 120 Output Total 500 750 225 Balance 490 -219 -105 Weight 219 lb Intake: Intake, IV Amount 990 250 120 Purple port Right PICC 90 50 20 line Red Port Right Picc line 900 200 100 Blood Product 281 Apheresis Rbc Cp2d As3 Lr 281 1st Unit [id number] Output: Urine 750 225 Urethral (Villanueva) 225 Urine/Stool Mix 500 Other: # Voids Urine, Voided 1 - Medications Active Medications: Active Medications Generic Name Dose Route Start Last Admin Trade Name Freq PRN Reason Stop Dose Admin Amlodipine Besylate 10 mg 10/15/17 10:00 10/20/17 09:57 Norvasc PO Not Given DAILY NYDIA Folic Acid 1 mg 10/15/17 10:00 10/24/17 15:53 Folic Acid PO Not Given DAILY [facility] Hydromorphone HCl 1 mg 10/24/17 15:28 10/24/17 15:42 Dilaudid IVP 1 mg Q3H PRN Administration Pain, severe (8-10) Vancomycin/Sodium Chloride 1 gm in 200 mls @ 166.7 mls/hr 10/19/17 18:00 04/03 20:43 Vancomycin 1 Gm/Ns 200 Ml IVPB 10/24/17 18:01 166.7 mls/hr Q24H NYDIA Administration Protocol Pantoprazole Sodium 80 mg/ 100 mls @ 10 mls/hr 10/19/17 18:30 10/24/17 15:35 Sodium Chloride IVPB 10 mls/hr .Q10H NYDIA Administration 8 MG/HR Sodium Chloride 1,000 mls @ 100 mls/hr 10/22/17 19:09 10/24/17 11:28 Sodium Chloride 0.9% IV 100 mls/hr .Q10H NYDIA Administration Insulin Aspart 0 unit 10/23/17 00:00 10/24/17 11:29 Novolog SC Not Given Q6H [facility] Protocol Morphine Sulfate 2 mg 10/24/17 15:45 Morphine IV Q4H PRN Pain, MODERATE (4-7) Mupirocin 0.5 gm 10/21/17 10:00 10/24/17 09:30 Bactroban 2% Nasal BROOK 0.5 gm BID NYDIA Administration Phenytoin 100 mg 10/18/17 20:45 10/24/17 11:52 Dilantin IVP 100 mg Q8H NYDIA Administration - Patient Studies Lab Studies: Lab Studies 10/24/17 10/24/17 10/24/17 Range/Units 11:20 06:22 06:22 WBC (4.8-10.8) K/uL RBC (3.80-5.20) Mil/uL Hgb (11.0-16.0) g/dL Hct (34.0-47.0) % MCV (81.0-99.0) fL MCH (27.0-31.0) pg MCHC (33.0-37.0) g/dL RDW (11.5-14.5) % Plt Count (130-400) K/uL MPV (7.2-11.7) fL Neut % (Auto) (50.0-75.0) % Lymph % (Auto) (20.0-40.0) % Terrell % (Auto) (0.0-10.0) % Eos % (Auto) (0.0-4.0) % Baso % (Auto) (0.0-2.0) % Neut # (Auto) (1.8-7.0) K/uL Lymph # (Auto) (1.0-4.3) K/uL Terrell # (Auto) (0.0-0.8) K/uL Eos # (Auto) (0.0-0.7) K/uL Baso # (Auto) (0.0-0.2) K/uL PT 12.8 H (9.7-12.2) SECONDS INR 1.1 APTT 30 (21-34) SECONDS Sodium 140 (132-148) mmol/L Potassium 3.9 (3.6-5.2) mmol/L Chloride 111 H (98-107) mmol/L Carbon Dioxide 20 L (22-30) mmol/L Anion Gap 14 (10-20) BUN 3 L (7-17) mg/dL Creatinine 0.8 (0.7-1.2) mg/dL Est GFR ( Amer) > 60 Est GFR (Non-Af Amer) > 60 POC Glucose (mg/dL) 221 H (65-110) mg/dL Random Glucose 186 H (65-105) mg/dL Calcium 7.3 L (8.6-10.4) mg/dl Phosphorus 2.8 (2.5-4.5) mg/dL Magnesium 1.6 (1.6-2.3) mg/dL Total Bilirubin 0.3 (0.2-1.3) mg/dL AST 18 (14-36) U/L ALT 17 (9-52) U/L Alkaline Phosphatase 82 (38-126) U/L Total Protein 5.0 L (6.3-8.3) g/dL Albumin 2.4 L (3.5-5.0) g/dL Globulin 2.5 (2.2-3.9) gm/dL Albumin/Globulin Ratio 1.0 (1.0-2.1) Blood Type Antibody Screen 10/24/17 10/24/17 10/24/17 Range/Units 06:22 05:05 00:38 WBC 8.3 (4.8-10.8) K/uL RBC 3.05 L (3.80-5.20) Mil/uL Hgb 9.1 L (11.0-16.0) g/dL Hct 26.1 L (34.0-47.0) % MCV 85.5 (81.0-99.0) fL MCH 29.9 (27.0-31.0) pg MCHC 35.0 (33.0-37.0) g/dL RDW 16.8 H (11.5-14.5) % Plt Count 197 (130-400) K/uL MPV 8.5 (7.2-11.7) fL Neut % (Auto) 72.5 (50.0-75.0) % Lymph % (Auto) 17.6 L (20.0-40.0) % Terrell % (Auto) 5.8 (0.0-10.0) % Eos % (Auto) 3.6 (0.0-4.0) % Baso % (Auto) 0.5 (0.0-2.0) % Neut # (Auto) 6.0 (1.8-7.0) K/uL Lymph # (Auto) 1.5 (1.0-4.3) K/uL Terrell # (Auto) 0.5 (0.0-0.8) K/uL Eos # (Auto) 0.3 (0.0-0.7) K/uL Baso # (Auto) 0.0 (0.0-0.2) K/uL PT (9.7-12.2) SECONDS INR APTT (21-34) SECONDS Sodium (132-148) mmol/L Potassium (3.6-5.2) mmol/L Chloride (98-107) mmol/L Carbon Dioxide (22-30) mmol/L Anion Gap (10-20) BUN (7-17) mg/dL Creatinine (0.7-1.2) mg/dL Est GFR ( Amer) Est GFR (Non-Af Amer) POC Glucose (mg/dL) 181 H 175 H (65-110) mg/dL Random Glucose (65-105) mg/dL Calcium (8.6-10.4) mg/dl Phosphorus (2.5-4.5) mg/dL Magnesium (1.6-2.3) mg/dL Total Bilirubin (0.2-1.3) mg/dL AST (14-36) U/L ALT (9-52) U/L Alkaline Phosphatase (38-126) U/L Total Protein (6.3-8.3) g/dL Albumin (3.5-5.0) g/dL Globulin (2.2-3.9) gm/dL Albumin/Globulin Ratio (1.0-2.1) Blood Type Antibody Screen 10/23/17 10/23/17 10/23/17 Range/Units 20:43 18:04 17:22 WBC 9.7 (4.8-10.8) K/uL RBC 3.32 L (3.80-5.20) Mil/uL Hgb 9.7 L D (11.0-16.0) g/dL Hct 28.3 L (34.0-47.0) % MCV 85.2 (81.0-99.0) fL MCH 29.1 (27.0-31.0) pg MCHC 34.1 (33.0-37.0) g/dL RDW 16.3 H (11.5-14.5) % Plt Count 193 (130-400) K/uL MPV 8.2 (7.2-11.7) fL Neut % (Auto) 81.2 H (50.0-75.0) % Lymph % (Auto) 11.2 L (20.0-40.0) % Terrell % (Auto) 5.0 (0.0-10.0) % Eos % (Auto) 2.2 (0.0-4.0) % Baso % (Auto) 0.4 (0.0-2.0) % Neut # (Auto) 7.9 H (1.8-7.0) K/uL Lymph # (Auto) 1.1 (1.0-4.3) K/uL Terrell # (Auto) 0.5 (0.0-0.8) K/uL Eos # (Auto) 0.2 (0.0-0.7) K/uL Baso # (Auto) 0.0 (0.0-0.2) K/uL PT (9.7-12.2) SECONDS INR APTT (21-34) SECONDS Sodium (132-148) mmol/L Potassium (3.6-5.2) mmol/L Chloride (98-107) mmol/L Carbon Dioxide (22-30) mmol/L Anion Gap (10-20) BUN (7-17) mg/dL Creatinine (0.7-1.2) mg/dL Est GFR ( Amer) Est GFR (Non-Af Amer) POC Glucose (mg/dL) 221 H (65-110) mg/dL Random Glucose (65-105) mg/dL Calcium (8.6-10.4) mg/dl Phosphorus (2.5-4.5) mg/dL Magnesium (1.6-2.3) mg/dL Total Bilirubin (0.2-1.3) mg/dL AST (14-36) U/L ALT (9-52) U/L Alkaline Phosphatase (38-126) U/L Total Protein (6.3-8.3) g/dL Albumin (3.5-5.0) g/dL Globulin (2.2-3.9) gm/dL Albumin/Globulin Ratio (1.0-2.1) Blood Type A POSITIVE Antibody Screen Negative Laboratory Results - last 24 hr 10/23/17 10/23/17 10/23/17 17:22 18:04 20:43 WBC 9.7 RBC 3.32 L Hgb 9.7 L D Hct 28.3 L MCV 85.2 MCH 29.1 MCHC 34.1 RDW 16.3 H Plt Count 193 MPV 8.2 Neut % (Auto) 81.2 H Lymph % (Auto) 11.2 L Terrell % (Auto) 5.0 Eos % (Auto) 2.2 Baso % (Auto) 0.4 Neut # (Auto) 7.9 H Lymph # (Auto) 1.1 Terrell # (Auto) 0.5 Eos # (Auto) 0.2 Baso # (Auto) 0.0 PT INR APTT Sodium Potassium Chloride Carbon Dioxide Anion Gap BUN Creatinine Est GFR ( Amer) Est GFR (Non-Af Amer) POC Glucose (mg/dL) 221 H Random Glucose Calcium Phosphorus Magnesium Total Bilirubin AST ALT Alkaline Phosphatase Total Protein Albumin Globulin Albumin/Globulin Ratio Blood Type A POSITIVE Antibody Screen Negative 10/24/17 10/24/17 10/24/17 00:38 05:05 06:22 WBC 8.3 RBC 3.05 L Hgb 9.1 L Hct 26.1 L MCV 85.5 MCH 29.9 MCHC 35.0 RDW 16.8 H Plt Count 197 MPV 8.5 Neut % (Auto) 72.5 Lymph % (Auto) 17.6 L Terrell % (Auto) 5.8 Eos % (Auto) 3.6 Baso % (Auto) 0.5 Neut # (Auto) 6.0 Lymph # (Auto) 1.5 Terrell # (Auto) 0.5 Eos # (Auto) 0.3 Baso # (Auto) 0.0 PT INR APTT Sodium Potassium Chloride Carbon Dioxide Anion Gap BUN Creatinine Est GFR ( Amer) Est GFR (Non-Af Amer) POC Glucose (mg/dL) 175 H 181 H Random Glucose Calcium Phosphorus Magnesium Total Bilirubin AST ALT Alkaline Phosphatase Total Protein Albumin Globulin Albumin/Globulin Ratio Blood Type Antibody Screen 10/24/17 10/24/17 10/24/17 06:22 06:22 11:20 WBC RBC Hgb Hct MCV MCH MCHC RDW Plt Count MPV Neut % (Auto) Lymph % (Auto) Terrell % (Auto) Eos % (Auto) Baso % (Auto) Neut # (Auto) Lymph # (Auto) Terrell # (Auto) Eos # (Auto) Baso # (Auto) PT 12.8 H INR 1.1 APTT 30 Sodium 140 Potassium 3.9 Chloride 111 H Carbon Dioxide 20 L Anion Gap 14 BUN 3 L Creatinine 0.8 Est GFR ( Amer) > 60 Est GFR (Non-Af Amer) > 60 POC Glucose (mg/dL) 221 H Random Glucose 186 H Calcium 7.3 L Phosphorus 2.8 Magnesium 1.6 Total Bilirubin 0.3 AST 18 ALT 17 Alkaline Phosphatase 82 Total Protein 5.0 L Albumin 2.4 L Globulin 2.5 Albumin/Globulin Ratio 1.0 Blood Type Antibody Screen Critical Care Progress Note - Nutrition Nutrition: Nutrition Category Date Time Status NPO Diet [DIET] Diets 10/24/17 Breakfast Active Attending/Attestation - Attestation I have personally seen and examined this patient.: Yes I have fully participated in the care of the patient.: Yes I have reviewed all pertinent clinical information: Yes Notes (Text): 10/24/17 16:46 patient seen and examined in the intensive care unit. Status post transfusion of multiple units packed RBCs for GI bleeding s/p Ex-Lap with Small Bowel Resection/Anastomosis x 3 Distal 1/3 of Small bowel, small segment of proximal small bowel removed Monitor H&H Continue present treatment
--- NOTE | 2017-10-24 10:35 | CT ---
PROCEDURE: CT Angiography Abdomen, Pelvis and Lower Extremity with Contrast HISTORY: Assess SMA bleeding COMPARISON: 10/21/2017. TECHNIQUE: Technique: CT angiography of the abdomen, pelvis and bilateral lower extremities performed in the arterial phase of enhancement. Coronal and sagittal reformats, and well as rotating MIP images of the vessels generated at the workstation. Intravenous contrast dose: Radiation dose: Total exam DLP = mGy-cm. This CT exam was performed using one or more of the following dose reduction techniques: Automated exposure control, adjustment of the mA and/or kV according to patient size, and/or use of iterative reconstruction technique. FINDINGS: CT ANGIOGRAPHY: ABDOMINAL AORTA:: Unremarkable. MAJOR AORTIC BRANCHES: Celiac [place]: Unremarkable. Superior mesenteric artery: Unremarkable. Inferior mesenteric artery: Unremarkable. Renal arteries: Unremarkable. PELVIC ARTERIES: Right Common Iliac: Unremarkable. Right External Iliac: Unremarkable. Right Internal Iliac: Unremarkable. Left Common Iliac: Unremarkable. Left External Iliac: Unremarkable. Left Internal Iliac: Unremarkable. NON-ANGIOGRAPHIC ASPECT OF THE EXAM: LOWER THORAX: Bibasilar pleural thickening and consolidation, right greater than left. LIVER: Unremarkable. No gross lesion or ductal dilatation. GALLBLADDER AND BILE DUCTS: Unremarkable. PANCREAS: Unremarkable. No gross lesion or ductal dilatation. SPLEEN: Large crescentic lesions noted within the spleen along the hilum possibly representing splenic evolving infarcts. Abscesses related to emboli are not definitively excluded. These are more pronounced compared the prior examination. . ADRENALS: Unremarkable. No mass. KIDNEYS AND URETERS: Unremarkable. No hydronephrosis. No solid mass. STOMACH AND BOWEL: Unremarkable. No obstruction. No gross mural thickening. APPENDIX: Normal appendix. PERITONEUM: Unremarkable. No free fluid. No free air. LYMPH NODES: Unremarkable. No enlarged lymph nodes. BLADDER: Unremarkable. REPRODUCTIVE: Enlarged calcified leiomyomatous uterus. BONES: No acute fracture. OTHER FINDINGS: None. IMPRESSION: Grossly unremarkable appearance of the splenic artery. Prominent crescentic lesions in the spleen near the hilum possibly representing evolving splenic infarcts though abscesses are not definitively excluded. No evidence of intra-abdominal hemorrhage.
--- NOTE | 2017-10-24 10:54 | CP.PCM.PN ---
Subjective - Date & Time of Evaluation Date of Evaluation: 10/24/17 Time of Evaluation: 10:20 - Subjective Subjective: Podiatry Progress Note- Dr. 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 Pt receiving blood transfusion. Says she is getting another colonoscopy today. Denies any pain or discomfort to either lower extremity. She denies f/n/v/c/sob/cp/weakness or dizziness. Objective - Vital Signs/Intake and Output Vital Signs (last 24 hours): Temp Pulse Resp BP Pulse Ox 98.5 F 79 15 166/58 H 95 10/24/17 09:54 10/24/17 10:00 10/24/17 10:00 10/24/17 09:56 10/24/17 10:00 Intake and Output: 10/24/17 10/24/17 06:59 18:59 Intake Total 1880 330 Output Total 800 Balance 1080 330 - Medications Medications: Current Medications Amlodipine Besylate (Norvasc) 10 mg PO DAILY [facility] Last Admin: 10/20/17 09:57 Dose: Not Given Folic Acid (Folic Acid) 1 mg PO DAILY [facility] Last Admin: 10/23/17 17:43 Dose: 1 mg Vancomycin/Sodium Chloride (Vancomycin 1 Gm/Ns 200 Ml) 1 gm in 200 mls @ 166.7 mls/hr IVPB Q24H [facility] PRN Reason: Protocol Stop: 10/24/17 18:01 Last Admin: 10/23/17 20:43 Dose: 166.7 mls/hr Pantoprazole Sodium 80 mg/ (Sodium Chloride) 100 mls @ 10 mls/hr IVPB .Q10H [facility] PRN Reason: 8 MG/HR Last Admin: 10/24/17 02:32 Dose: 10 mls/hr Sodium Chloride (Sodium Chloride 0.9%) 1,000 mls @ 100 mls/hr IV .Q10H [facility] Last Admin: 10/24/17 01:52 Dose: Not Given Insulin Aspart (Novolog) 0 unit SC Q6H [facility] PRN Reason: Protocol Last Admin: 10/24/17 06:19 Dose: Not Given Morphine Sulfate (Morphine) 2 mg IV Q4H PRN PRN Reason: Pain, severe (8-10) Last Admin: 10/24/17 03:21 Dose: 2 mg Mupirocin (Bactroban 2% Nasal) 0.5 gm BROOK BID [facility] Last Admin: 10/24/17 09:30 Dose: 0.5 gm Phenytoin (Dilantin) 100 mg IVP Q8H [facility] Last Admin: 10/24/17 03:51 Dose: 100 mg - Labs Labs: 10/24/17 06:22 10/24/17 06:22 PT 12.8 SECONDS (9.7-12.2) H 10/24/17 06:22 INR 1.1 10/24/17 06:22 APTT 30 SECONDS (21-34) 10/24/17 06:22 - Constitutional Appears: Non-toxic, No Acute Distress - Extremities Exam Extremities Exam: absent: Calf Tenderness Additional comments: LLE focused: dressing to left foot appears c,d,i Vasc: DP and PT pulses are nonpalpable, skin temp runs cool to cool (proximal to distal) lower extremities cool to cool Ortho: Mild pain with palpation to the left hallux and surrounding periwound, MM is 4/5 in all four compartments consistent with age Neuro: gross sensation intact bilaterally, protective sensation diminished Derm: dry gangrene noted to the distal left hallux to the level of the IPJ with nail plate absent from nail bed, wound base is 100% necrotic and gangrenous, distal mummification with demarcating process noted, no active purulent drainage noted or expressed, no malodor, no appreciable erythema or streaking, no probe to bone, no tunneling, no undermining. No other grossly ischemic changes appreciated to b/l feet - Neurological Exam Neurological Exam: Alert, Awake, Oriented x3 - Psychiatric Exam Psychiatric exam: Normal Affect, Normal Mood Assessment and Plan - Assessment and Plan (Free Text) Assessment: 57 y.o female w/ gangrenous left 1st hallux with underlying OM Plan: Patient S&E at bedside Discussed with attending, Dr. Bhat afebrile, no leukocytosis CT angio: -Right- short segment moderate stenosis prox SFA w/ long segment severe stenosis of the mid/distal SFA stent. Mild tandem stenosis of right popliteal. Markedly limited evaluation of below knee arteries due to heavy arterial wall calcification -Left- short segment moderate stenosis of prox SFA. Patent indwelling mid/ distal SFA stent. Mild tandem stenoses of the superficial femoral and popliteal artery. Markedly limited eval of anterior tibial and peroneal arteries due to heavy arterial wall calcification Per vascular, no sx intervention for PVD at this time due to GI bleed c/w IV abx for repeat colonoscopy today will follow
[2017-10-24] MEDS ORDERED: Sodium Chloride 0.9% 1,000 ML IV ONE (12:10)
[2017-10-24] MEDS ORDERED: Lactated Ringer's 1,000 ML IV ONE (12:10)
[2017-10-24] MEDS ORDERED: Propofol 10 mg/ml Inj (20 ML) ONE (12:21)
[2017-10-24] MEDS ORDERED: Midazolam 2 MG/2 ML VIAL ONE (12:21)
[2017-10-24] MEDS ORDERED: ceFAZolin 1 gm in NS 2 GM/200 ML BAG IVPB ONE (12:31)
[2017-10-24] MEDS ORDERED: metroNIDAZOLE IV 500 mg/100 ml 500 MG/100 ML BAG ONE (12:31)
[2017-10-24] MEDS ORDERED: Rocuronium 10 mg/ml (5 ml) ONE (12:59)
[2017-10-24] MEDS ORDERED: Succinylcholine Chloride 20 mg/ml Syr (5 ml) IV ONE (12:59)
[2017-10-24] MEDS ORDERED: ePHEDrine 50 mg/ml Inj ONE (12:59)
[2017-10-24] MEDS ORDERED: Phenylephrine 10 mg/ml Inj ONE (12:59)
[2017-10-24] MEDS ORDERED: Morphine 4 MG/ML VIAL ONE (13:36)
[2017-10-24] MEDS ORDERED: Labetalol 25mg/5ml Syringe ONE (13:36)
[2017-10-24] MEDS ORDERED: Neostigmine Methylsulfate 3mg/3ml Syringe IV ONE (14:46)
--- NOTE | 2017-10-24 15:27 | PCM.SURG1 ---
Surgeon's Initial Post Op Note - Surgeon's Notes Surgeon: Dr. Cota Distributed Generation Project Manager: Dr. Lamb PGY-3, Dr. More PGY-1, Yared Rico MS3 Type of Anesthesia: General Endo Anesthesia Administered By: Dr. Renteria Pre-Operative Diagnosis: GI bleed Operative Findings: See operative report Post-Operative Diagnosis: Same Operation Performed: Ex-Lap with Small Bowel Resection/Anastomosis x 3 Specimen/Specimens Removed: Distal 1/3 of Small bowel, small segment of proximal small bowel Estimated Blood Loss: EBL {In ML}: 150 Blood Products Given: N/A Drains Used: No Drains Post-Op Condition: Good Date of Surgery/Procedure: 10/24/17 Time of Surgery/Procedure: 15:27
[2017-10-24] MEDS: HYDROmorphone 1 mg/ml ISec IVP PRN ×2 (15:42→22:06)
[2017-10-24 16:35] LABS: MEAN CELL VOLUME 86.1 fL (81.0-99.0); MEAN CORPUSCULAR HEMOGLOBIN 29.1 pg (27.0-31.0); MEAN CORPUSCULAR HGB CONC 33.8 g/dL (33.0-37.0); MEAN PLATELET VOLUME 8.3 fL (7.2-11.7); RBC 4.12 Mil/uL (3.80-5.20); RED CELL DISTRIBUTION WIDTH 16.2 % (11.5-14.5)
[2017-10-24 16:47] LABS: WHITE BLOOD COUNT 20.9 K/uL (4.8-10.8)
[2017-10-24] MEDS: Vancomycin 1 gm/NS 200 ml 1 GM/200 ML BAG IVPB SCH (17:25)
--- NOTE | 2017-10-24 23:05 | CP.PCM.PN ---
Subjective - Date & Time of Evaluation Date of Evaluation: 10/24/17 Time of Evaluation: 18:00 - Subjective Subjective: Pt seen and examined, is for colonoscopy today. Denies any pain or discomfort to either lower extremity. She denies f/n/v/c/sob/cp/weakness or dizziness. pt underwent resection of small intestine' post op Objective - Vital Signs/Intake and Output Vital Signs (last 24 hours): Temp Pulse Resp BP Pulse Ox 98.1 F 96 H 12 149/61 100 10/24/17 20:00 10/24/17 20:00 10/24/17 20:00 10/24/17 19:34 10/24/17 20:00 Intake and Output: 10/24/17 10/25/17 18:59 06:59 Intake Total 871 320 Output Total 1150 100 Balance -279 220 - Medications Medications: Current Medications Amlodipine Besylate (Norvasc) 10 mg PO DAILY [facility] Last Admin: 10/20/17 09:57 Dose: Not Given Folic Acid (Folic Acid) 1 mg PO DAILY [facility] Last Admin: 10/24/17 15:53 Dose: Not Given Hydromorphone HCl (Dilaudid) 1 mg IVP Q3H PRN PRN Reason: Pain, severe (8-10) Last Admin: 10/24/17 15:42 Dose: 1 mg Pantoprazole Sodium 80 mg/ (Sodium Chloride) 100 mls @ 10 mls/hr IVPB .Q10H [facility] PRN Reason: 8 MG/HR Last Admin: 10/24/17 19:15 Dose: Not Given Sodium Chloride (Sodium Chloride 0.9%) 1,000 mls @ 100 mls/hr IV .Q10H [facility] Last Admin: 10/24/17 11:28 Dose: 100 mls/hr Insulin Aspart (Novolog) 0 unit SC Q6H [facility] PRN Reason: Protocol Last Admin: 10/24/17 18:22 Dose: 6 unit Morphine Sulfate (Morphine) 2 mg IV Q4H PRN PRN Reason: Pain, MODERATE (4-7) Last Admin: 10/24/17 18:03 Dose: 2 mg Mupirocin (Bactroban 2% Nasal) 0.5 gm BROOK BID [facility] Last Admin: 10/24/17 17:25 Dose: 0.5 gm Phenytoin (Dilantin) 100 mg IVP Q8H [facility] Last Admin: 10/24/17 11:52 Dose: 100 mg - Labs Labs: 10/24/17 16:32 10/24/17 06:22 PT 12.8 SECONDS (9.7-12.2) H 10/24/17 06:22 INR 1.1 10/24/17 06:22 APTT 30 SECONDS (21-34) 10/24/17 06:22 - Constitutional Appears: No Acute Distress - Head Exam Head Exam: ATRAUMATIC, NORMAL INSPECTION, NORMOCEPHALIC - Eye Exam Eye Exam: EOMI, Normal appearance, PERRL Pupil Exam: NORMAL ACCOMODATION, PERRL - Respiratory Exam Respiratory Exam: Decreased Breath Sounds, Rales, Rhonchi - Cardiovascular Exam Cardiovascular Exam: REGULAR RHYTHM, +S1, +S2. absent: Murmur Assessment and Plan (1) GI bleed Status: Acute (2) Anemia Status: Acute (3) Toe gangrene Status: Acute (4) CAD (coronary artery disease) Status: Chronic
--- NOTE | 2017-10-25 00:52 | OP ---
PROCEDURE DATE: 10/24/2017 PREOPERATIVE DIAGNOSIS: Continued gastrointestinal bleeding, suspected small bowel. POSTOPERATIVE DIAGNOSIS: Continued gastrointestinal bleeding, suspected small bowel. PROCEDURE CARRIED OUT: Exploratory laparotomy, small bowel resection with anastomosis x3. SURGEON: Raghu Cota Jr., MD DREDGE WORKER: Dr. Lamb. ANESTHESIOLOGIST: Ms. Gail CRNA. INDICATIONS: The patient is a middle-aged woman with history of valve replacement with massive GI bleeding, requiring 10 units of blood. OPERATIVE FINDINGS: There was no gross abnormality detected. There was no Meckel's diverticulum. There was no evidence of overt diverticular disease. There was no gross abnormality detected except approximately a foot distal to ligament of Treitz, there was an external mucosa lesion, measuring approximately 2 cm in size. This was sent for frozen section with Dr. Storm who felt that this was benign, and more importantly, there was no mucosal component to the abnormality seen. After we resected this, we have to re-resect it again because of technical problems related to it. We then went distally, and as per our discussion with the decided to resect it, good portion of the distal small bowel. Prior to doing this; however, we made multiple enterotomies and we were unable to identify any blood in the lumen of the bowel. Thus approximately 6 inches proximal to the cecum, we left the small bowel. We did not see a Meckel's as I mentioned. We then resected 3 to 4 feet proximally to this and then carried out a [id number] anastomosis. The bowel exam did not have any overt blood in it. After this had been done, we then closed the abdomen with running sutures of Novafil and PDS and closed the skin with skin clips. In addition, we carefully examined the liver, the pelvis, only found a heavily calcified fibroid uterus. To detect any other abnormalities on her exam, for example, gallstones, etc, there is a tube in the stomach but we could not identify any other abnormalities. So in summation, we explored the patient. We resected into the frozen section abnormality on the surface of the bowel proximally. Distally, there was no gross abnormalities or overt abnormalities. We resected this and terminated the procedure. Blood loss of the procedure was 150 mL, and the operation carried out was exploratory laparotomy, small bowel resection with anastomosis x3. No drains were left. Raghu Cota Jr., MD
[2017-10-25] MEDS: Pantoprazole 80 MG in Sodium Chloride 0.9% 100 ML IVPB SCH ×2 (01:07→05:47)
[2017-10-25] MEDS: (Novolog) Insulin Aspart, Recombinant 100 u/ml 10 ml vial SC SCH ×5 (01:08→23:35)
[2017-10-25] MEDS ORDERED: Nitroglycerin 2% Ointment Foilpak UD TOP STA (03:16)
[2017-10-25] MEDS: Morphine 4 MG/ML VIAL IV PRN ×2 (03:31→15:32)
[2017-10-25] MEDS: Phenytoin 100 mg/2 ml Inj IVP SCH ×3 (05:52→20:29)
[2017-10-25] MEDS ORDERED: Labetalol 25mg/5ml Syringe IVP STA (06:10)
--- NOTE | 2017-10-25 06:25 | CP.PCM.PN ---
<Valentino Lopez - Last Filed: 10/25/17 12:19> Subjective - Date & Time of Evaluation Date of Evaluation: 10/25/17 Time of Evaluation: 06:25 - Subjective Subjective: PGY5 GI Fellow Progress Note Patient seen and examined bedside this morning. She is complaining of abdominal pain near her midline surgical site. No events overnight. Patient had NGT placed after surgery with dark black liquid return initially. No nausea, vomiting, diarrhea, melena, hematochezia overnight. 12 system ROS performed and negative except where stated. Objective - Vital Signs/Intake and Output Vital Signs (last 24 hours): Temp Pulse Resp BP Pulse Ox 98.5 F 106 H 12 188/75 H 100 10/25/17 03:55 10/25/17 06:00 10/25/17 06:00 10/25/17 05:53 10/25/17 06:00 Intake and Output: 10/24/17 10/25/17 18:59 06:59 Intake Total 871 1420 Output Total 1150 1310 Balance -279 110 - Medications Medications: Current Medications Amlodipine Besylate (Norvasc) 10 mg PO DAILY [facility] Last Admin: 10/20/17 09:57 Dose: Not Given Folic Acid (Folic Acid) 1 mg PO DAILY [facility] Last Admin: 10/24/17 15:53 Dose: Not Given Hydromorphone HCl (Dilaudid) 1 mg IVP Q3H PRN PRN Reason: Pain, severe (8-10) Last Admin: 10/24/17 22:06 Dose: 1 mg Pantoprazole Sodium 80 mg/ (Sodium Chloride) 100 mls @ 10 mls/hr IVPB .Q10H [facility] PRN Reason: 8 MG/HR Last Admin: 10/25/17 05:47 Dose: Not Given Sodium Chloride (Sodium Chloride 0.9%) 1,000 mls @ 100 mls/hr IV .Q10H [facility] Last Admin: 10/24/17 23:39 Dose: Not Given Insulin Aspart (Novolog) 0 unit SC Q6H [facility] PRN Reason: Protocol Last Admin: 10/25/17 05:56 Dose: 3 unit Morphine Sulfate (Morphine) 2 mg IV Q4H PRN PRN Reason: Pain, MODERATE (4-7) Last Admin: 10/25/17 03:31 Dose: 2 mg Mupirocin (Bactroban 2% Nasal) 0.5 gm BROOK BID [facility] Last Admin: 10/24/17 17:25 Dose: 0.5 gm Phenytoin (Dilantin) 100 mg IVP Q8H [facility] Last Admin: 10/25/17 05:52 Dose: 100 mg - Labs Labs: 10/24/17 16:32 10/24/17 06:22 PT 12.8 SECONDS (9.7-12.2) H 10/24/17 06:22 INR 1.1 10/24/17 06:22 APTT 30 SECONDS (21-34) 10/24/17 06:22 - Constitutional Appears: No Acute Distress, Chronically Ill - Eye Exam Eye Exam: EOMI, PERRL - ENT Exam ENT Exam: Mucous Membranes Dry - Respiratory Exam Respiratory Exam: Decreased Breath Sounds. absent: Rales, Rhonchi, Wheezes - Cardiovascular Exam Cardiovascular Exam: RRR, +S1, +S2, Murmur (systolic) - GI/Abdominal Exam GI & Abdominal Exam: Soft, Tenderness (diffusely), Normal Bowel Sounds. absent : Distended, Firm, Guarding, Rigid, Organomegaly Additional comments: midline surgical wound - Extremities Exam Additional comments: left 1st toe gangrene - Neurological Exam Neurological Exam: Alert, Awake, Oriented x3 - Psychiatric Exam Psychiatric exam: Normal Affect, Normal Mood - Skin Skin Exam: Dry, Warm Assessment and Plan - Assessment and Plan (Free Text) Assessment: Patient is a 57yo female with history of peripheral vascular disease and concern for left great toe gangrene, CAD, anemia who presented to the ED referred by her lyft driver for concern of osteomyelitis. Our service is consulted for anemia. -Acute blood loss anemia -Acute GI hemorrhage -S/P small bowel resection -H/O mitral/aortic mechanical valve replacement previously on anticoagulation -Left 1st toe gangrene -CAD -PVD Plan: -S/P exploratory laparotomy with proximal and distal small bowel resection and anastomosis POD#1 -Monitor NGT output which appears very dark/bloody -Continued on PPI gtt -Monitor H/H, transfusion support as needed -S/P 1 dose of DDAVP 20mcg IV yesterday -Significant leukocytosis noted today; received Ancef, Vanc, Flagyl yesterday -ID following -Post-op care per surgical team -Will follow <Urban Cesar Y - Last Filed: 10/25/17 16:17> Objective - Vital Signs/Intake and Output Vital Signs (last 24 hours): Temp Pulse Resp BP Pulse Ox 98.7 F 104 H 12 143/62 98 10/25/17 16:00 10/25/17 16:00 10/25/17 16:00 10/25/17 15:53 10/25/17 16:00 Intake and Output: 10/25/17 10/25/17 06:59 18:59 Intake Total 1530 910 Output Total 1510 775 Balance 20 135 - Medications Medications: Current Medications Amlodipine Besylate (Norvasc) 10 mg PO DAILY [facility] Last Admin: 10/20/17 09:57 Dose: Not Given Folic Acid (Folic Acid) 1 mg PO DAILY [facility] Last Admin: 10/25/17 12:43 Dose: Not Given Hydromorphone HCl (Dilaudid) 1 mg IVP Q3H PRN PRN Reason: Pain, severe (8-10) Last Admin: 10/25/17 10:13 Dose: 1 mg Sodium Chloride (Sodium Chloride 0.9%) 1,000 mls @ 100 mls/hr IV .Q10H [facility] Last Admin: 10/25/17 15:34 Dose: 100 mls/hr Vancomycin/Sodium Chloride (Vancomycin 1 Gm/Ns 200 Ml) 1 gm in 200 mls @ 133 mls/hr IVPB Q24H [facility] PRN Reason: Protocol Stop: 10/30/17 18:01 Piperacillin Sod/Tazobactam Sod (Zosyn 3.375 Gm Iv Premix) 3.375 gm in 50 mls @ 100 mls/hr IVPB Q6H [facility] PRN Reason: Protocol Stop: 10/27/17 14:01 Last Admin: 10/25/17 13:24 Dose: 100 mls/hr Insulin Aspart (Novolog) 0 unit SC Q6H [facility] PRN Reason: Protocol Last Admin: 10/25/17 13:17 Dose: 4 unit Morphine Sulfate (Morphine) 2 mg IV Q4H PRN PRN Reason: Pain, MODERATE (4-7) Last Admin: 10/25/17 15:32 Dose: 2 mg Mupirocin (Bactroban 2% Nasal) 0.5 gm BROOK BID [facility] Last Admin: 04/11/18 10:19 Dose: 0.5 gm Pantoprazole Sodium (Protonix Inj) 40 mg IVP Q12H [facility] Phenytoin (Dilantin) 100 mg IVP Q8H [facility] Last Admin: 10/25/17 13:17 Dose: 100 mg - Labs Labs: 10/25/17 07:17 10/25/17 04:00 PT 12.8 SECONDS (9.7-12.2) H 10/24/17 06:22 INR 1.1 10/24/17 06:22 APTT 30 SECONDS (21-34) 10/24/17 06:22 Attending/Attestation - Attestation I have personally seen and examined this patient.: Yes I have fully participated in the care of the patient.: Yes I have reviewed all pertinent clinical information, including history, physical exam and plan: Yes Notes (Text): 10/25/17 16:14 I have seen and examined patient with GI fellow. She is seen sitting in chair at bedside, appears comfortable. She complains of mild abdominal pain at surgical site but otherwise denies nausea, vomiting, fever/chills. No bowel movements or flatus since surgical intervention yesterday. Review of vitals from today shows elevated BP and tachycardia. PVD, osteomyelitis History of aortic/mitral valve replacement Overt GI bleeding, thought to be distal small bowel in etiology, s/p partial small bowel resection yesterday - NPO - NGT to suction, monitor output - H/H stable, continue to monitor. s/p DDAVP administration yesterday. - Continue with PPI therapy - Follow up surgical recommendations - Continue with antibiotic therapy - Will continue to monitor patient clinical course
[2017-10-25 07:25] LABS: BASO # 0.1 K/uL (0.0-0.2); BASO % 0.4 % (0.0-2.0); EOS % 0.2 % (0.0-4.0); HEMOGLOBIN 11.4 g/dL (11.0-16.0); LYMPH # 1.1 K/uL (1.0-4.3); LYMPH % 6.7 % (20.0-40.0); MEAN CELL VOLUME 86.7 fL (81.0-99.0); MEAN CORPUSCULAR HEMOGLOBIN 29.6 pg (27.0-31.0); MEAN CORPUSCULAR HGB CONC 34.1 g/dL (33.0-37.0); MEAN PLATELET VOLUME 9.2 fL (7.2-11.7); MONO # 0.7 K/uL (0.0-0.8); MONO % 4.4 % (0.0-10.0); NEUT # 14.3 K/uL (1.8-7.0); NEUT % 88.3 % (50.0-75.0); NRBC % 0.1 % (0.0-2.0); PLATELET COUNT 225 K/uL (130-400); RBC 3.85 Mil/uL (3.80-5.20); RED CELL DISTRIBUTION WIDTH 16.8 % (11.5-14.5); WHITE BLOOD COUNT 16.2 K/uL (4.8-10.8)
[2017-10-25 07:29] LABS: ALB/GLOB RATIO 0.8 (1.0-2.1); ALBUMIN 2.6 g/dL (3.5-5.0); ALT/SGPT 13 U/L (9-52); AST/SGOT 23 U/L (14-36); BLOOD UREA NITROGEN 5 mg/dL (7-17); CALCIUM 7.8 mg/dl (8.6-10.4); GFR AFRICAN-AMERICAN > 60; GFR NON-AFRICAN AMERICAN > 60
[2017-10-25] MEDS: Magnesium Sulfate 1 gm in D5W 1 GM/100 ML BAG IVPB SCH ×2 (08:27→10:35)
[2017-10-25 09:01] LABS: ANISOCYTOSIS SLIGHT; BURR CELLS SLIGHT; LYMPHOCYTE 6 % (20-40); MONOCYTE 3 % (0-10); NEUTROPHIL 91 % (50-75); PLATELET ESTIMATE NORMAL (NORMAL); POIKILOCYTOSIS SLIGHT; POLYCHROMIC SLIGHT; TOTAL CELLS COUNTED 100
[2017-10-25 09:02] LABS: SMUDGE CELLS PRESENT
[2017-10-25] MEDS: HYDROmorphone 1 mg/ml ISec IVP PRN ×2 (10:13→20:44)
[2017-10-25] MEDS: Mupirocin 2% Ointment (NASAL) NAS SCH ×2 (10:19→17:18)
--- NOTE | 2017-10-25 12:53 | CP.CCUPN ---
<Nicolas Zavala - Last Filed: 10/25/17 16:03> CCU Subjective - Physician Review Subjective (Free Text): 10/23/17 08:14 Patient seen and examined at bedside. Complaining of fatigue. NPO for repeat EGD and colonoscopy today. 10/24/17 10:23 Patient seen and examined. Patient reports feeling a bit better than yesterday. She is anxiously anticipating OR later today. 10/25/17 12:50 Patient seen and examined. She reports that she is feeling "so-so." Patient is complaining of abdominal pain in the region of her operation. CCU Objective - Vital Signs / Intake & Output Vital Signs (Last 4 hours): Vital Signs Temp Pulse Resp BP Pulse Ox 10/25/17 12:00 98.7 F 101 H 12 99 10/25/17 11:54 102 H 16 124/49 L 98 10/25/17 11:00 102 H 25 H 97 10/25/17 10:53 101 H 25 H 111/49 L 97 10/25/17 10:00 103 H 19 100 10/25/17 09:53 104 H 18 184/68 H 100 10/25/17 09:00 100 H 15 99 10/25/17 08:53 100 H 15 168/66 H 98 Intake and Output (Last 8hrs): Intake & Output 10/24/17 10/25/17 10/25/17 22:59 06:59 14:59 Intake Total 880 990 510 Output Total 700 1210 425 Balance 180 -220 85 Weight 218 lb Intake: Intake, IV Amount 880 990 510 Purple port Right PICC 80 90 10 line [place] Right Picc line 800 900 500 Output: Urine 700 1210 425 Urethral (Villanueva) 700 1210 425 - Physical Exam Head: Positive for: Atraumatic, Normocephalic Pupils: Positive for: PERRL Extroacular Muscles: Positive for: EOMI Conjunctiva: Positive for: Normal Mouth: Positive for: Moist Mucous Membranes Nose (External): Positive for: Other (NGT in place suctioning dark red/brown material) Neck: Positive for: Normal Range of Motion Respiratory/Chest: Positive for: Clear to Auscultation, Good Air Exchange. Negative for: Respiratory Distress, Accessory Muscle Use Cardiovascular: Positive for: Regular Rate and Rhythm, Normal S1, S2, Other ( systolic murmur). Negative for: Tachycardic Abdomen: Positive for: Normal Bowel Sounds. Negative for: Tenderness, Distention Upper Extremity: Positive for: Normal Inspection Lower Extremity: Positive for: Other (Right toe dressing intact) Neurological: Positive for: GCS=15 Skin: Positive for: Warm, Dry, Normal Color Psychiatric: Positive for: Alert, Oriented x 3 - Medications Active Medications: Active Medications Generic Name Dose Route Start Last Admin Trade Name Freq PRN Reason Stop Dose Admin Amlodipine Besylate 10 mg 10/15/17 10:00 10/20/17 09:57 Norvasc PO Not Given DAILY NYDIA Folic Acid 1 mg 10/15/17 10:00 10/25/17 12:43 Folic Acid PO Not Given DAILY [facility] Hydromorphone HCl 1 mg 10/24/17 15:28 10/25/17 10:13 Dilaudid IVP 1 mg Q3H PRN Administration Pain, severe (8-10) Sodium Chloride 1,000 mls @ 100 mls/hr 10/22/17 19:09 10/24/17 23:39 Sodium Chloride 0.9% IV Not Given .Q10H [facility] Insulin Aspart 0 unit 10/23/17 00:00 10/25/17 05:56 Novolog SC 3 unit Q6H NYDIA Administration Protocol Morphine Sulfate 2 mg 10/24/17 15:45 10/25/17 03:31 Morphine IV 2 mg Q4H PRN Administration Pain, MODERATE (4-7) Mupirocin 0.5 gm 10/21/17 10:00 10/25/17 10:19 Bactroban 2% Nasal BROKO 0.5 gm BID NYDIA Administration Pantoprazole Sodium 40 mg 10/26/17 10:00 Protonix Inj IVP DAILY NYDIA Phenytoin 100 mg 10/18/17 20:45 10/25/17 05:52 Dilantin IVP 100 mg Q8H NYDIA Administration - Patient Studies Lab Studies: Lab Studies 10/25/17 10/25/17 10/25/17 Range/Units 11:36 07:17 05:20 WBC 16.2 H (4.8-10.8) K/uL RBC 3.85 (3.80-5.20) Mil/uL Hgb 11.4 (11.0-16.0) g/dL Hct 33.4 L (34.0-47.0) % MCV 86.7 (81.0-99.0) fL MCH 29.6 (27.0-31.0) pg MCHC 34.1 (33.0-37.0) g/dL RDW 16.8 H (11.5-14.5) % Plt Count 225 (130-400) K/uL MPV 9.2 (7.2-11.7) fL Neut % (Auto) 88.3 H (50.0-75.0) % Lymph % (Auto) 6.7 L (20.0-40.0) % [place] % (Auto) 4.4 (0.0-10.0) % Eos % (Auto) 0.2 (0.0-4.0) % Baso % (Auto) 0.4 (0.0-2.0) % Neut # (Auto) 14.3 H (1.8-7.0) K/uL Lymph # (Auto) 1.1 (1.0-4.3) K/uL [place] # (Auto) 0.7 (0.0-0.8) K/uL Eos # (Auto) 0.0 (0.0-0.7) K/uL Baso # (Auto) 0.1 (0.0-0.2) K/uL Neutrophils % (Manual) 91 H (50-75) % Lymphocytes % (Manual) 6 L (20-40) % Monocytes % (Manual) 3 (0-10) % Smudge Cells Present Platelet Estimate Normal (NORMAL) Polychromasia Slight Poikilocytosis (manual Slight Anisocytosis (manual) Slight [place] Cells Slight Sodium (132-148) mmol/L Potassium (3.6-5.2) mmol/L Chloride (98-107) mmol/L Carbon Dioxide (22-30) mmol/L Anion Gap (10-20) BUN (7-17) mg/dL Creatinine (0.7-1.2) mg/dL Est GFR ( Amer) Est GFR (Non-Af Amer) POC Glucose (mg/dL) 260 H 236 H (65-110) mg/dL Random Glucose (65-105) mg/dL Calcium (8.6-10.4) mg/dl Phosphorus (2.5-4.5) mg/dL Magnesium (1.6-2.3) mg/dL Total Bilirubin (0.2-1.3) mg/dL AST (14-36) U/L ALT (9-52) U/L Alkaline Phosphatase (38-126) U/L Total Protein (6.3-8.3) g/dL Albumin (3.5-5.0) g/dL Globulin (2.2-3.9) gm/dL Albumin/Globulin Ratio (1.0-2.1) 10/25/17 10/24/17 10/24/17 Range/Units 04:00 23:42 22:10 WBC (4.8-10.8) K/uL RBC (3.80-5.20) Mil/uL Hgb 12.0 (11.0-16.0) g/dL Hct 35.7 (34.0-47.0) % MCV (81.0-99.0) fL MCH (27.0-31.0) pg MCHC (33.0-37.0) g/dL RDW (11.5-14.5) % Plt Count (130-400) K/uL MPV (7.2-11.7) fL Neut % (Auto) (50.0-75.0) % Lymph % (Auto) (20.0-40.0) % [place] % (Auto) (0.0-10.0) % Eos % (Auto) (0.0-4.0) % Baso % (Auto) (0.0-2.0) % Neut # (Auto) (1.8-7.0) K/uL Lymph # (Auto) (1.0-4.3) K/uL [place] # (Auto) (0.0-0.8) K/uL Eos # (Auto) (0.0-0.7) K/uL Baso # (Auto) (0.0-0.2) K/uL Neutrophils % (Manual) (50-75) % Lymphocytes % (Manual) (20-40) % Monocytes % (Manual) (0-10) % Smudge Cells Platelet Estimate (NORMAL) Polychromasia Poikilocytosis (manual Anisocytosis (manual) Addi Cells Sodium 141 (132-148) mmol/L Potassium 4.2 (3.6-5.2) mmol/L Chloride 109 H (98-107) mmol/L Carbon Dioxide 21 L (22-30) mmol/L Anion Gap 15 (10-20) BUN 5 L (7-17) mg/dL Creatinine 0.7 (0.7-1.2) mg/dL Est GFR ( Amer) > 60 Est GFR (Non-Af Amer) > 60 POC Glucose (mg/dL) 276 H (65-110) mg/dL Random Glucose 249 H (65-105) mg/dL Calcium 7.8 L (8.6-10.4) mg/dl Phosphorus 3.6 (2.5-4.5) mg/dL Magnesium 1.4 L (1.6-2.3) mg/dL Total Bilirubin 0.5 (0.2-1.3) mg/dL AST 23 (14-36) U/L ALT 13 (9-52) U/L Alkaline Phosphatase 94 (38-126) U/L Total Protein 5.7 L (6.3-8.3) g/dL Albumin 2.6 L (3.5-5.0) g/dL Globulin 3.1 (2.2-3.9) gm/dL Albumin/Globulin Ratio 0.8 L (1.0-2.1) 10/24/17 10/24/17 Range/Units 18:12 16:32 WBC 20.9 H D (4.8-10.8) K/uL RBC 4.12 (3.80-5.20) Mil/uL Hgb 12.0 D (11.0-16.0) g/dL Hct 35.4 (34.0-47.0) % MCV 86.1 (81.0-99.0) fL MCH 29.1 (27.0-31.0) pg MCHC 33.8 (33.0-37.0) g/dL RDW 16.2 H (11.5-14.5) % Plt Count 222 (130-400) K/uL MPV 8.3 (7.2-11.7) fL Neut % (Auto) (50.0-75.0) % Lymph % (Auto) (20.0-40.0) % [place] % (Auto) (0.0-10.0) % Eos % (Auto) (0.0-4.0) % Baso % (Auto) (0.0-2.0) % Neut # (Auto) (1.8-7.0) K/uL Lymph # (Auto) (1.0-4.3) K/uL [place] # (Auto) (0.0-0.8) K/uL Eos # (Auto) (0.0-0.7) K/uL Baso # (Auto) (0.0-0.2) K/uL Neutrophils % (Manual) (50-75) % Lymphocytes % (Manual) (20-40) % Monocytes % (Manual) (0-10) % Smudge Cells Platelet Estimate (NORMAL) Polychromasia Poikilocytosis (manual Anisocytosis (manual) Addi Cells Sodium (132-148) mmol/L Potassium (3.6-5.2) mmol/L Chloride (98-107) mmol/L Carbon Dioxide (22-30) mmol/L Anion Gap (10-20) BUN (7-17) mg/dL Creatinine (0.7-1.2) mg/dL Est GFR ( Amer) Est GFR (Non-Af Amer) POC Glucose (mg/dL) 302 H (65-110) mg/dL Random Glucose (65-105) mg/dL Calcium (8.6-10.4) mg/dl Phosphorus (2.5-4.5) mg/dL Magnesium (1.6-2.3) mg/dL Total Bilirubin (0.2-1.3) mg/dL AST (14-36) U/L ALT (9-52) U/L Alkaline Phosphatase (38-126) U/L Total Protein (6.3-8.3) g/dL Albumin (3.5-5.0) g/dL Globulin (2.2-3.9) gm/dL Albumin/Globulin Ratio (1.0-2.1) Laboratory Results - last 24 hr 10/24/17 10/24/17 10/24/17 16:32 18:12 22:10 WBC 20.9 H D RBC 4.12 Hgb 12.0 D 12.0 Hct 35.4 35.7 MCV 86.1 MCH 29.1 MCHC 33.8 RDW 16.2 H Plt Count 222 MPV 8.3 Neut % (Auto) Lymph % (Auto) [place] % (Auto) Eos % (Auto) Baso % (Auto) Neut # (Auto) Lymph # (Auto) [place] # (Auto) Eos # (Auto) Baso # (Auto) Neutrophils % (Manual) Lymphocytes % (Manual) Monocytes % (Manual) Smudge Cells Platelet Estimate Polychromasia Poikilocytosis (manual Anisocytosis (manual) Addi Cells Sodium Potassium Chloride Carbon Dioxide Anion Gap BUN Creatinine Est GFR ( Amer) Est GFR (Non-Af Amer) POC Glucose (mg/dL) 302 H Random Glucose Calcium Phosphorus Magnesium Total Bilirubin AST ALT Alkaline Phosphatase Total Protein Albumin Globulin Albumin/Globulin Ratio 10/24/17 10/25/17 10/25/17 23:42 04:00 05:20 WBC RBC Hgb Hct MCV MCH MCHC RDW Plt Count MPV Neut % (Auto) Lymph % (Auto) [place] % (Auto) Eos % (Auto) Baso % (Auto) Neut # (Auto) Lymph # (Auto) [place] # (Auto) Eos # (Auto) Baso # (Auto) Neutrophils % (Manual) Lymphocytes % (Manual) Monocytes % (Manual) Smudge Cells Platelet Estimate Polychromasia Poikilocytosis (manual Anisocytosis (manual) [place] Cells Sodium 141 Potassium 4.2 Chloride 109 H Carbon Dioxide 21 L Anion Gap 15 BUN 5 L Creatinine 0.7 Est GFR ( Amer) > 60 Est GFR (Non-Af Amer) > 60 POC Glucose (mg/dL) 276 H 236 H Random Glucose 249 H Calcium 7.8 L Phosphorus 3.6 Magnesium 1.4 L Total Bilirubin 0.5 AST 23 ALT 13 Alkaline Phosphatase 94 Total Protein 5.7 L Albumin 2.6 L Globulin 3.1 Albumin/Globulin Ratio 0.8 L 10/25/17 10/25/17 07:17 11:36 WBC 16.2 H RBC 3.85 Hgb 11.4 Hct 33.4 L MCV 86.7 MCH 29.6 MCHC 34.1 RDW 16.8 H Plt Count 225 MPV 9.2 Neut % (Auto) 88.3 H Lymph % (Auto) 6.7 L [place] % (Auto) 4.4 Eos % (Auto) 0.2 Baso % (Auto) 0.4 Neut # (Auto) 14.3 H Lymph # (Auto) 1.1 [place] # (Auto) 0.7 Eos # (Auto) 0.0 Baso # (Auto) 0.1 Neutrophils % (Manual) 91 H Lymphocytes % (Manual) 6 L Monocytes % (Manual) 3 Smudge Cells Present Platelet Estimate Normal Polychromasia Slight Poikilocytosis (manual Slight Anisocytosis (manual) Slight [place] Cells Slight Sodium Potassium Chloride Carbon Dioxide Anion Gap BUN Creatinine Est GFR ( Amer) Est GFR (Non-Af Amer) POC Glucose (mg/dL) 260 H Random Glucose Calcium Phosphorus Magnesium Total Bilirubin AST ALT Alkaline Phosphatase Total Protein Albumin Globulin Albumin/Globulin Ratio Fingerstick Blood Sugar Results: 302 Critical Care Progress Note - Nutrition Nutrition: Nutrition Category Date Time Status NPO Diet [DIET] Diets 10/24/17 Breakfast Active Assessment/Plan - Assessment and Plan (Free Text) Assessment: Patient is a 57 year old female with past medical history of Diabetes, Mechanical aortic/mitral valve, chronic smoker, seizure disorder, PVD presented to the hospital initially for left toe infection. Was started on heparin drip. While on the floor patient started having bloody bowel movements. All anticoagulation on hold. Went for EGD prior which showed non-bleeding gastric ulcers and duodenitis. Transferred to the ICU for further monitoring. On 10/24/17 , patient underwent exploratory laparotomy where a questionable lesion proximal to the ligament of Trietz was resected as well as the distal small bowel in an effort to stop the patient's GI bleed. The regions were then anastomosed. She is POD #1. Neuro AAOx3 Seizure disorder on Dilantin 100 mg IV Q8 Cardio Currently holding Norvasc 10 mg PO daily Monitor BP History of mitral and aortic mechanical valves, currently holding anticoagulation due to significant GI bleed Pulmonary saturating well on room air GI Protonix 40 mg IV Q12H Prior EGD showed multiple non-bleeding gastric ulcers and duodenitis Prior colonoscopy had inadequate preparation but did show much melena/coffee ground material throughout the colon Repeat EGD up to the jejunum negative However, repeat colonoscopy showed fresh pooling of blood from the region of the ileocecal valve indicating likely small bowel bleed Patient NPO until cleared by surgery ID Left foot wound grew MRSA Vancomycin 1 gm Q24H Zosyn 3.375 gm Q6H for 48 hours starting today per ID Contact precaution Endocrine Novolog sliding scale [id number] dose Accuchecks Heme/Onc Hemoglobin 11.4 this morning. Patient has received 14 units pRBCs in total on this admission Continue to monitor GI/DVT Prophylaxis VTE ppx contraindicated due to GI bleed Protonix 40 mg IV Q12H Dispo: Critical care Seen and discussed with Dr. Otero <David Otero - Last Filed: 10/25/17 16:09> CCU Objective - Vital Signs / Intake & Output Vital Signs (Last 4 hours): Vital Signs Temp Pulse Resp BP Pulse Ox 10/25/17 16:00 98.7 F 104 H 12 98 10/25/17 15:53 103 H 13 143/62 99 10/25/17 15:00 104 H 16 98 10/25/17 14:53 107 H 12 144/61 97 10/25/17 14:00 105 H 12 98 10/25/17 13:53 103 H 13 148/63 99 10/25/17 13:00 104 H 13 95 10/25/17 12:53 104 H 13 142/59 L 95 Intake and Output (Last 8hrs): Intake & Output 10/25/17 10/25/17 10/25/17 06:59 14:59 22:59 Intake Total 990 710 200 Output Total 1210 600 175 Balance -220 110 25 Weight 218 lb Intake: Intake, IV Amount 990 710 200 Purple port Right PICC 90 10 line Red [place] Right Picc line 900 700 200 Output: Urine 1210 600 175 Urethral (Villanueva) 1210 600 175 - Medications Active Medications: Active Medications Generic Name Dose Route Start Last Admin Trade Name Freq PRN Reason Stop Dose Admin Amlodipine Besylate 10 mg 10/15/17 10:00 10/20/17 09:57 Norvasc PO Not Given DAILY NYDIA Folic Acid 1 mg 10/15/17 10:00 10/25/17 12:43 Folic Acid PO Not Given DAILY NYDIA Hydromorphone HCl 1 mg 10/24/17 15:28 10/25/17 10:13 Dilaudid IVP 1 mg Q3H PRN Administration Pain, severe (8-10) Sodium Chloride 1,000 mls @ 100 mls/hr 10/22/17 19:09 10/25/17 15:34 Sodium Chloride 0.9% IV 100 mls/hr .Q10H NYDIA Administration Vancomycin/Sodium Chloride 1 gm in 200 mls @ 133 mls/hr 10/25/17 18:00 Vancomycin 1 Gm/Ns 200 Ml IVPB 10/30/17 18:01 Q24H NYDIA Protocol Piperacillin Sod/Tazobactam Sod 3.375 gm in 50 mls @ 100 mls/hr 10/25/17 14: 00 10/25/17 13:24 Zosyn 3.375 Gm Iv Premix IVPB 10/27/17 14:01 100 mls/hr Q6H NYDIA Administration Protocol Insulin Aspart 0 unit 10/23/17 00:00 10/25/17 13:17 Novolog SC 4 unit Q6H NYDIA Administration Protocol Morphine Sulfate 2 mg 10/24/17 15:45 10/25/17 15:32 Morphine IV 2 mg Q4H PRN Administration Pain, MODERATE (4-7) Mupirocin 0.5 gm 10/21/17 10:00 10/25/17 10:19 Bactroban 2% Nasal BROOK 0.5 gm BID NYDIA Administration Pantoprazole Sodium 40 mg 10/25/17 18:00 Protonix Inj IVP Q12H NYDIA Phenytoin 100 mg 10/18/17 20:45 10/25/17 13:17 Dilantin IVP 100 mg Q8H NYDIA Administration - Patient Studies Lab Studies: Lab Studies 10/25/17 10/25/17 10/25/17 Range/Units 11:36 07:17 05:20 WBC 16.2 H (4.8-10.8) K/uL RBC 3.85 (3.80-5.20) Mil/uL Hgb 11.4 (11.0-16.0) g/dL Hct 33.4 L (34.0-47.0) % MCV 86.7 (81.0-99.0) fL MCH 29.6 (27.0-31.0) pg MCHC 34.1 (33.0-37.0) g/dL RDW 16.8 H (11.5-14.5) % Plt Count 225 (130-400) K/uL MPV 9.2 (7.2-11.7) fL Neut % (Auto) 88.3 H (50.0-75.0) % Lymph % (Auto) 6.7 L (20.0-40.0) % [place] % (Auto) 4.4 (0.0-10.0) % Eos % (Auto) 0.2 (0.0-4.0) % Baso % (Auto) 0.4 (0.0-2.0) % Neut # (Auto) 14.3 H (1.8-7.0) K/uL Lymph # (Auto) 1.1 (1.0-4.3) K/uL [place] # (Auto) 0.7 (0.0-0.8) K/uL Eos # (Auto) 0.0 (0.0-0.7) K/uL Baso # (Auto) 0.1 (0.0-0.2) K/uL Neutrophils % (Manual) 91 H (50-75) % Lymphocytes % (Manual) 6 L (20-40) % Monocytes % (Manual) 3 (0-10) % Smudge Cells Present Platelet Estimate Normal (NORMAL) Polychromasia Slight Poikilocytosis (manual Slight Anisocytosis (manual) Slight [place] Cells Slight Sodium (132-148) mmol/L Potassium (3.6-5.2) mmol/L Chloride (98-107) mmol/L Carbon Dioxide (22-30) mmol/L Anion Gap (10-20) BUN (7-17) mg/dL Creatinine (0.7-1.2) mg/dL Est GFR ( Amer) Est GFR (Non-Af Amer) POC Glucose (mg/dL) 260 H 236 H (65-110) mg/dL Random Glucose (65-105) mg/dL Calcium (8.6-10.4) mg/dl Phosphorus (2.5-4.5) mg/dL Magnesium (1.6-2.3) mg/dL Total Bilirubin (0.2-1.3) mg/dL AST (14-36) U/L ALT (9-52) U/L Alkaline Phosphatase (38-126) U/L Total Protein (6.3-8.3) g/dL Albumin (3.5-5.0) g/dL Globulin (2.2-3.9) gm/dL Albumin/Globulin Ratio (1.0-2.1) 10/25/17 10/24/17 10/24/17 Range/Units 04:00 23:42 22:10 WBC (4.8-10.8) K/uL RBC (3.80-5.20) Mil/uL Hgb 12.0 (11.0-16.0) g/dL Hct 35.7 (34.0-47.0) % MCV (81.0-99.0) fL MCH (27.0-31.0) pg MCHC (33.0-37.0) g/dL RDW (11.5-14.5) % Plt Count (130-400) K/uL MPV (7.2-11.7) fL Neut % (Auto) (50.0-75.0) % Lymph % (Auto) (20.0-40.0) % [place] % (Auto) (0.0-10.0) % Eos % (Auto) (0.0-4.0) % Baso % (Auto) (0.0-2.0) % Neut # (Auto) (1.8-7.0) K/uL Lymph # (Auto) (1.0-4.3) K/uL [place] # (Auto) (0.0-0.8) K/uL Eos # (Auto) (0.0-0.7) K/uL Baso # (Auto) (0.0-0.2) K/uL Neutrophils % (Manual) (50-75) % Lymphocytes % (Manual) (20-40) % Monocytes % (Manual) (0-10) % Smudge Cells Platelet Estimate (NORMAL) Polychromasia Poikilocytosis (manual Anisocytosis (manual) [place] Cells Sodium 141 (132-148) mmol/L Potassium 4.2 (3.6-5.2) mmol/L Chloride 109 H (98-107) mmol/L Carbon Dioxide 21 L (22-30) mmol/L Anion Gap 15 (10-20) BUN 5 L (7-17) mg/dL Creatinine 0.7 (0.7-1.2) mg/dL Est GFR ( Amer) > 60 Est GFR (Non-Af Amer) > 60 POC Glucose (mg/dL) 276 H (65-110) mg/dL Random Glucose 249 H (65-105) mg/dL Calcium 7.8 L (8.6-10.4) mg/dl Phosphorus 3.6 (2.5-4.5) mg/dL Magnesium 1.4 L (1.6-2.3) mg/dL Total Bilirubin 0.5 (0.2-1.3) mg/dL AST 23 (14-36) U/L ALT 13 (9-52) U/L Alkaline Phosphatase 94 (38-126) U/L Total Protein 5.7 L (6.3-8.3) g/dL Albumin 2.6 L (3.5-5.0) g/dL Globulin 3.1 (2.2-3.9) gm/dL Albumin/Globulin Ratio 0.8 L (1.0-2.1) 10/24/17 10/24/17 Range/Units 18:12 16:32 WBC 20.9 H D (4.8-10.8) K/uL RBC 4.12 (3.80-5.20) Mil/uL Hgb 12.0 D (11.0-16.0) g/dL Hct 35.4 (34.0-47.0) % MCV 86.1 (81.0-99.0) fL MCH 29.1 (27.0-31.0) pg MCHC 33.8 (33.0-37.0) g/dL RDW 16.2 H (11.5-14.5) % Plt Count 222 (130-400) K/uL MPV 8.3 (7.2-11.7) fL Neut % (Auto) (50.0-75.0) % Lymph % (Auto) (20.0-40.0) % [place] % (Auto) (0.0-10.0) % Eos % (Auto) (0.0-4.0) % Baso % (Auto) (0.0-2.0) % Neut # (Auto) (1.8-7.0) K/uL Lymph # (Auto) (1.0-4.3) K/uL [place] # (Auto) (0.0-0.8) K/uL Eos # (Auto) (0.0-0.7) K/uL Baso # (Auto) (0.0-0.2) K/uL Neutrophils % (Manual) (50-75) % Lymphocytes % (Manual) (20-40) % Monocytes % (Manual) (0-10) % Smudge Cells Platelet Estimate (NORMAL) Polychromasia Poikilocytosis (manual Anisocytosis (manual) Addi Cells Sodium (132-148) mmol/L Potassium (3.6-5.2) mmol/L Chloride (98-107) mmol/L Carbon Dioxide (22-30) mmol/L Anion Gap (10-20) BUN (7-17) mg/dL Creatinine (0.7-1.2) mg/dL Est GFR ( Amer) Est GFR (Non-Af Amer) POC Glucose (mg/dL) 302 H (65-110) mg/dL Random Glucose (65-105) mg/dL Calcium (8.6-10.4) mg/dl Phosphorus (2.5-4.5) mg/dL Magnesium (1.6-2.3) mg/dL Total Bilirubin (0.2-1.3) mg/dL AST (14-36) U/L ALT (9-52) U/L Alkaline Phosphatase (38-126) U/L Total Protein (6.3-8.3) g/dL Albumin (3.5-5.0) g/dL Globulin (2.2-3.9) gm/dL Albumin/Globulin Ratio (1.0-2.1) Laboratory Results - last 24 hr 10/24/17 10/24/17 10/24/17 16:32 18:12 22:10 WBC 20.9 H D RBC 4.12 Hgb 12.0 D 12.0 Hct 35.4 35.7 MCV 86.1 MCH 29.1 MCHC 33.8 RDW 16.2 H Plt Count 222 MPV 8.3 Neut % (Auto) Lymph % (Auto) [place] % (Auto) Eos % (Auto) Baso % (Auto) Neut # (Auto) Lymph # (Auto) [place] # (Auto) Eos # (Auto) Baso # (Auto) Neutrophils % (Manual) Lymphocytes % (Manual) Monocytes % (Manual) Smudge Cells Platelet Estimate Polychromasia Poikilocytosis (manual Anisocytosis (manual) [place] Cells Sodium Potassium Chloride Carbon Dioxide Anion Gap BUN Creatinine Est GFR ( Amer) Est GFR (Non-Af Amer) POC Glucose (mg/dL) 302 H Random Glucose Calcium Phosphorus Magnesium Total Bilirubin AST ALT Alkaline Phosphatase Total Protein Albumin Globulin Albumin/Globulin Ratio 10/24/17 10/25/17 10/25/17 23:42 04:00 05:20 WBC RBC Hgb Hct MCV MCH MCHC RDW Plt Count MPV Neut % (Auto) Lymph % (Auto) [place] % (Auto) Eos % (Auto) Baso % (Auto) Neut # (Auto) Lymph # (Auto) [place] # (Auto) Eos # (Auto) Baso # (Auto) Neutrophils % (Manual) Lymphocytes % (Manual) Monocytes % (Manual) Smudge Cells Platelet Estimate Polychromasia Poikilocytosis (manual Anisocytosis (manual) [place] Cells Sodium 141 Potassium 4.2 Chloride 109 H Carbon Dioxide 21 L Anion Gap 15 BUN 5 L Creatinine 0.7 Est GFR ( Amer) > 60 Est GFR (Non-Af Amer) > 60 POC Glucose (mg/dL) 276 H 236 H Random Glucose 249 H Calcium 7.8 L Phosphorus 3.6 Magnesium 1.4 L Total Bilirubin 0.5 AST 23 ALT 13 Alkaline Phosphatase 94 Total Protein 5.7 L Albumin 2.6 L Globulin 3.1 Albumin/Globulin Ratio 0.8 L 10/25/17 10/25/17 07:17 11:36 WBC 16.2 H RBC 3.85 Hgb 11.4 Hct 33.4 L MCV 86.7 MCH 29.6 MCHC 34.1 RDW 16.8 H Plt Count 225 MPV 9.2 Neut % (Auto) 88.3 H Lymph % (Auto) 6.7 L [place] % (Auto) 4.4 Eos % (Auto) 0.2 Baso % (Auto) 0.4 Neut # (Auto) 14.3 H Lymph # (Auto) 1.1 [place] # (Auto) 0.7 Eos # (Auto) 0.0 Baso # (Auto) 0.1 Neutrophils % (Manual) 91 H Lymphocytes % (Manual) 6 L Monocytes % (Manual) 3 Smudge Cells Present Platelet Estimate Normal Polychromasia Slight Poikilocytosis (manual Slight Anisocytosis (manual) Slight [place] Cells Slight Sodium Potassium Chloride Carbon Dioxide Anion Gap BUN Creatinine Est GFR ( Amer) Est GFR (Non-Af Amer) POC Glucose (mg/dL) 260 H Random Glucose Calcium Phosphorus Magnesium Total Bilirubin AST ALT Alkaline Phosphatase Total Protein Albumin Globulin Albumin/Globulin Ratio EKG/Cardiology Studies: Cardiology / EKG Studies 10/25/17 15:00 EKG [ELECTROCARDIOGRAM] Routine Comment: Mode Of Transportation: Reason For Exam: postop Isolation: Contact Critical Care Progress Note - Nutrition Nutrition: Nutrition Category Date Time Status NPO Diet [DIET] Diets 10/24/17 Breakfast Active Attending/Attestation - Attestation I have personally seen and examined this patient.: Yes I have fully participated in the care of the patient.: Yes I have reviewed all pertinent clinical information: Yes Notes (Text): 10/25/17 16:08 Patient seen and examined in the intensive care unit. case discussed with house staff in the morning rounds. Postop no active bleeding and H&H stable Continue present treatment Discontinue Protonix drip
[2017-10-25] MEDS: Piperacill/Tazo 3.375gm in Dex 3.375 GM/50 ML BAG IVPB SCH ×2 (13:24→20:29)
--- NOTE | 2017-10-25 13:29 | CP.PCM.PN ---
Subjective - Date & Time of Evaluation Date of Evaluation: 10/25/17 Time of Evaluation: 13:28 - Subjective Subjective: awake and alert. discussed operative findings with patient. She is aware of findings and plans Objective - Vital Signs/Intake and Output Vital Signs (last 24 hours): Temp Pulse Resp BP Pulse Ox 98.7 F 104 H 13 142/59 L 95 10/25/17 12:00 10/25/17 13:00 10/25/17 13:00 10/25/17 12:53 10/25/17 13:00 Intake and Output: 10/25/17 10/25/17 06:59 18:59 Intake Total 1530 610 Output Total 1510 425 Balance 20 185 - Medications Medications: Current Medications Amlodipine Besylate (Norvasc) 10 mg PO DAILY [facility] Last Admin: 10/20/17 09:57 Dose: Not Given Folic Acid (Folic Acid) 1 mg PO DAILY [facility] Last Admin: 10/25/17 12:43 Dose: Not Given Hydromorphone HCl (Dilaudid) 1 mg IVP Q3H PRN PRN Reason: Pain, severe (8-10) Last Admin: 10/25/17 10:13 Dose: 1 mg Sodium Chloride (Sodium Chloride 0.9%) 1,000 mls @ 100 mls/hr IV .Q10H [facility] Last Admin: 10/24/17 23:39 Dose: Not Given Vancomycin/Sodium Chloride (Vancomycin 1 Gm/Ns 200 Ml) 1 gm in 200 mls @ 133 mls/hr IVPB Q24H NYDIA PRN Reason: Protocol Stop: 10/30/17 18:01 Piperacillin Sod/Tazobactam Sod (Zosyn 3.375 Gm Iv Premix) 3.375 gm in 50 mls @ 100 mls/hr IVPB Q6H NYDIA PRN Reason: Protocol Stop: 10/27/17 14:01 Last Admin: 10/25/17 13:24 Dose: 100 mls/hr Insulin Aspart (Novolog) 0 unit SC Q6H NYDIA PRN Reason: Protocol Last Admin: 10/25/17 13:17 Dose: 4 unit Morphine Sulfate (Morphine) 2 mg IV Q4H PRN PRN Reason: Pain, MODERATE (4-7) Last Admin: 10/25/17 03:31 Dose: 2 mg Mupirocin (Bactroban 2% Nasal) 0.5 gm BROOK BID [facility] Last Admin: 10/25/17 10:19 Dose: 0.5 gm Pantoprazole Sodium (Protonix Inj) 40 mg IVP DAILY [facility] Phenytoin (Dilantin) 100 mg IVP Q8H [facility] Last Admin: 10/25/17 13:17 Dose: 100 mg - Labs Labs: 10/25/17 07:17 10/25/17 04:00 PT 12.8 SECONDS (9.7-12.2) H 10/24/17 06:22 INR 1.1 10/24/17 06:22 APTT 30 SECONDS (21-34) 10/24/17 06:22
[2017-10-25] MEDS: Sodium Chloride 0.9% 1,000 ML IV SCH ×2 (15:34→17:46)
--- NOTE | 2017-10-25 16:33 | PN ---
DATE: SUBJECTIVE: The patient underwent small bowel resection yesterday. She is still on nasogastric tube suction. No reported ventricular tachycardia or hypotension. PHYSICAL EXAMINATION: VITAL SIGNS: Blood pressure 142/59, heart rate 104, temperature 97.8, respirations 15. HEENT: Mild facial edema. CHEST: Diminished breath sounds over the bases. HEART: S1 and S2, regular. A 3/6 ejection systolic murmur over left sternal border. EXTREMITIES: Trace leg edema. LABORATORY DATA: SMA-7: Sodium 141, potassium 4.2, chloride 109, CO2 21, glucose 249, BUN 5, creatinine 0.7. Today's hemoglobin and hematocrit are 11.4 and 32.4; white count 16.2, platelet count 225,000. ASSESSMENT: 1. Status post distal small bowel resection for persistent lower gastrointestinal bleeding. 2. Status post aortic and mitral valve replacement. 3. Peripheral vascular disease, status post recent left lower extremity stenting with gangrenous left big toe changes. RECOMMENDATIONS: Continue current Dilantin, Norvasc, normal saline infusion, IV vancomycin, and IV Zosyn. Obtain 12-lead EKG. Case was discussed with Dr. Cota, the surgeon who performed the surgery yesterday. Kraig Sheldon MD
[2017-10-25] MEDS: Vancomycin 1 gm/NS 200 ml 1 GM/200 ML BAG IVPB SCH (17:17)
--- NOTE | 2017-10-25 17:52 | CP.PCM.PN ---
Subjective - Date & Time of Evaluation Date of Evaluation: 10/25/17 Time of Evaluation: 09:00 - Subjective Subjective: rx in progress ngt in place cont iv antibiotics Objective - Vital Signs/Intake and Output Vital Signs (last 24 hours): Temp Pulse Resp BP Pulse Ox 98.7 F 104 H 13 153/67 H 98 10/25/17 16:00 10/25/17 17:00 10/25/17 17:00 10/25/17 16:53 10/25/17 17:00 Intake and Output: 10/25/17 10/25/17 06:59 18:59 Intake Total 1530 1010 Output Total 1510 825 Balance 20 185 - Medications Medications: Current Medications Amlodipine Besylate (Norvasc) 10 mg PO DAILY [facility] Last Admin: 10/20/17 09:57 Dose: Not Given Folic Acid (Folic Acid) 1 mg PO DAILY [facility] Last Admin: 10/25/17 12:43 Dose: Not Given Hydromorphone HCl (Dilaudid) 1 mg IVP Q3H PRN PRN Reason: Pain, severe (8-10) Last Admin: 10/25/17 10:13 Dose: 1 mg Sodium Chloride (Sodium Chloride 0.9%) 1,000 mls @ 100 mls/hr IV .Q10H [facility] Last Admin: 10/25/17 17:46 Dose: Not Given Vancomycin/Sodium Chloride (Vancomycin 1 Gm/Ns 200 Ml) 1 gm in 200 mls @ 133 mls/hr IVPB Q24H [facility] PRN Reason: Protocol Stop: 10/30/17 18:01 Last Admin: 10/25/17 17:17 Dose: 133 mls/hr Piperacillin Sod/Tazobactam Sod (Zosyn 3.375 Gm Iv Premix) 3.375 gm in 50 mls @ 100 mls/hr IVPB Q6H [facility] PRN Reason: Protocol Stop: 10/27/17 14:01 Last Admin: 10/25/17 13:24 Dose: 100 mls/hr Insulin Aspart (Novolog) 0 unit SC Q6H [facility] PRN Reason: Protocol Last Admin: 10/25/17 13:17 Dose: 4 unit Morphine Sulfate (Morphine) 2 mg IV Q4H PRN PRN Reason: Pain, MODERATE (4-7) Last Admin: 10/25/17 15:32 Dose: 2 mg Mupirocin (Bactroban 2% Nasal) 0.5 gm BROOK BID [facility] Last Admin: 10/25/17 17:18 Dose: 0.5 gm Pantoprazole Sodium (Protonix Inj) 40 mg IVP Q12H [facility] Last Admin: 10/25/17 17:19 Dose: 40 mg Phenytoin (Dilantin) 100 mg IVP Q8H [facility] Last Admin: 10/25/17 13:17 Dose: 100 mg - Labs Labs: 10/25/17 07:17 10/25/17 04:00 PT 12.8 SECONDS (9.7-12.2) H 10/24/17 06:22 INR 1.1 10/24/17 06:22 APTT 30 SECONDS (21-34) 10/24/17 06:22 - Constitutional Appears: Non-toxic - Head Exam Head Exam: NORMOCEPHALIC - Eye Exam Eye Exam: PERRL - ENT Exam ENT Exam: Mucous Membranes Dry - Neck Exam Neck Exam: absent: Lymphadenopathy - Respiratory Exam Respiratory Exam: Decreased Breath Sounds - Cardiovascular Exam Cardiovascular Exam: REGULAR RHYTHM - GI/Abdominal Exam GI & Abdominal Exam: Distended, Soft Assessment and Plan (1) Anemia Status: Acute (2) Toe gangrene Status: Acute (3) CAD (coronary artery disease) Status: Chronic (4) Dyslipidemia Status: Chronic (5) PVD (peripheral vascular disease) Status: Chronic (6) Uncontrolled diabetes mellitus Status: Chronic
--- NOTE | 2017-10-25 23:54 | CP.PCM.PN ---
Subjective - Date & Time of Evaluation Date of Evaluation: 10/25/17 Time of Evaluation: 19:00 - Subjective Subjective: pt seen and examined s/p small bowel resection H and H is stable Objective - Vital Signs/Intake and Output Vital Signs (last 24 hours): Temp Pulse Resp BP Pulse Ox 98.2 F 103 H 12 144/61 92 L 10/25/17 20:00 10/25/17 21:53 10/25/17 21:53 10/25/17 21:53 10/25/17 21:53 Intake and Output: 10/25/17 10/26/17 18:59 06:59 Intake Total 1210 400 Output Total 825 250 Balance 385 150 - Medications Medications: Current Medications Amlodipine Besylate (Norvasc) 10 mg PO DAILY [facility] Last Admin: 10/20/17 09:57 Dose: Not Given Folic Acid (Folic Acid) 1 mg PO DAILY [facility] Last Admin: 10/25/17 12:43 Dose: Not Given Hydromorphone HCl (Dilaudid) 1 mg IVP Q3H PRN PRN Reason: Pain, severe (8-10) Last Admin: 10/25/17 20:44 Dose: 1 mg Sodium Chloride (Sodium Chloride 0.9%) 1,000 mls @ 100 mls/hr IV .Q10H [facility] Last Admin: 10/25/17 17:46 Dose: Not Given Vancomycin/Sodium Chloride (Vancomycin 1 Gm/Ns 200 Ml) 1 gm in 200 mls @ 133 mls/hr IVPB Q24H [facility] PRN Reason: Protocol Stop: 10/30/17 18:01 Last Admin: 10/25/17 17:17 Dose: 133 mls/hr Piperacillin Sod/Tazobactam Sod (Zosyn 3.375 Gm Iv Premix) 3.375 gm in 50 mls @ 100 mls/hr IVPB Q6H [facility] PRN Reason: Protocol Stop: 10/27/17 14:01 Last Admin: 10/25/17 20:29 Dose: 100 mls/hr Insulin Aspart (Novolog) 0 unit SC Q6H [facility] PRN Reason: Protocol Last Admin: 10/25/17 23:35 Dose: Not Given Morphine Sulfate (Morphine) 2 mg IV Q4H PRN PRN Reason: Pain, MODERATE (4-7) Last Admin: 10/25/17 15:32 Dose: 2 mg Mupirocin (Bactroban 2% Nasal) 0.5 gm BROOK BID [facility] Last Admin: 10/25/17 17:18 Dose: 0.5 gm Pantoprazole Sodium (Protonix Inj) 40 mg IVP Q12H [facility] Last Admin: 10/25/17 17:19 Dose: 40 mg Phenytoin (Dilantin) 100 mg IVP Q8H [facility] Last Admin: 10/25/17 20:29 Dose: 100 mg - Labs Labs: 10/25/17 07:17 10/25/17 04:00 PT 12.8 SECONDS (9.7-12.2) H 10/24/17 06:22 INR 1.1 10/24/17 06:22 APTT 30 SECONDS (21-34) 10/24/17 06:22 - Constitutional Appears: No Acute Distress - Head Exam Head Exam: ATRAUMATIC, NORMAL INSPECTION, NORMOCEPHALIC - Eye Exam Eye Exam: EOMI, Normal appearance, PERRL Pupil Exam: NORMAL ACCOMODATION, PERRL - Respiratory Exam Respiratory Exam: Clear to Ausculation Bilateral, NORMAL BREATHING PATTERN - Cardiovascular Exam Cardiovascular Exam: REGULAR RHYTHM, +S1, +S2. absent: Murmur - GI/Abdominal Exam GI & Abdominal Exam: Soft, Normal Bowel Sounds. absent: Tenderness Assessment and Plan (1) GI bleed Status: Acute (2) Anemia Status: Acute (3) Toe gangrene Status: Acute (4) CAD (coronary artery disease) Status: Chronic
[2017-10-26] MEDS: Piperacill/Tazo 3.375gm in Dex 3.375 GM/50 ML BAG IVPB SCH ×5 (01:08→22:00)
[2017-10-26] MEDS: HYDROmorphone 1 mg/ml ISec IVP PRN ×2 (03:43→09:07)
[2017-10-26] MEDS: Phenytoin 100 mg/2 ml Inj IVP SCH ×3 (04:35→20:10)
[2017-10-26] MEDS: Sodium Chloride 0.9% 1,000 ML IV SCH (04:39)
[2017-10-26] MEDS: (Novolog) Insulin Aspart, Recombinant 100 u/ml 10 ml vial SC SCH ×2 (05:17→18:15)
[2017-10-26 06:09] LABS: BASO % 0.2 % (0.0-2.0); EOS # 0.1 K/uL (0.0-0.7); EOS % 0.8 % (0.0-4.0); HEMOGLOBIN 10.5 g/dL (11.0-16.0); LYMPH # 0.8 K/uL (1.0-4.3); LYMPH % 6.2 % (20.0-40.0); MEAN CELL VOLUME 88.4 fL (81.0-99.0); MEAN CORPUSCULAR HEMOGLOBIN 29.5 pg (27.0-31.0); MEAN CORPUSCULAR HGB CONC 33.4 g/dL (33.0-37.0); MEAN PLATELET VOLUME 8.8 fL (7.2-11.7); MONO # 0.6 K/uL (0.0-0.8); MONO % 4.7 % (0.0-10.0); NEUT # 11.8 K/uL (1.8-7.0); NEUT % 88.1 % (50.0-75.0); NRBC % 0.1 % (0.0-2.0); PLATELET COUNT 235 K/uL (130-400); RBC 3.55 Mil/uL (3.80-5.20); RED CELL DISTRIBUTION WIDTH 16.9 % (11.5-14.5); WHITE BLOOD COUNT 13.4 K/uL (4.8-10.8)
[2017-10-26 06:31] LABS: ALB/GLOB RATIO 0.8 (1.0-2.1); ALBUMIN 2.5 g/dL (3.5-5.0); ALT/SGPT 12 U/L (9-52); AST/SGOT 21 U/L (14-36); BLOOD UREA NITROGEN 5 mg/dL (7-17); CALCIUM 8.1 mg/dl (8.6-10.4); GFR AFRICAN-AMERICAN > 60; GFR NON-AFRICAN AMERICAN > 60
--- NOTE | 2017-10-26 07:30 | CP.PCM.PN ---
<Valentino Lopez - Last Filed: 10/26/17 08:05> Subjective - Date & Time of Evaluation Date of Evaluation: 10/26/17 Time of Evaluation: 06:30 - Subjective Subjective: PGY5 GI Fellow Progress Note Patient seen and examined bedside this morning. The patient continues to complain of pain near the surgical site. She denies passing stool but nursing state patient passed liquid green/brown stool yesterday evening. No nausea, vomiting. BP has been high requiring intervention. No other complaints at this time. 12 system ROS performed and negative except where stated. Objective - Vital Signs/Intake and Output Vital Signs (last 24 hours): Temp Pulse Resp BP Pulse Ox 97.4 F L 108 H 19 178/71 H 94 L 10/26/17 04:00 10/26/17 06:00 10/26/17 06:00 10/26/17 05:53 10/26/17 06:00 Intake and Output: 10/26/17 10/26/17 06:59 18:59 Intake Total 1200 100 Output Total 1100 Balance 100 100 - Medications Medications: Current Medications Amlodipine Besylate (Norvasc) 10 mg PO DAILY [facility] Last Admin: 10/20/17 09:57 Dose: Not Given Folic Acid (Folic Acid) 1 mg PO DAILY [facility] Last Admin: 10/25/17 12:43 Dose: Not Given Hydromorphone HCl (Dilaudid) 1 mg IVP Q3H PRN PRN Reason: Pain, severe (8-10) Last Admin: 10/26/17 03:43 Dose: 1 mg Sodium Chloride (Sodium Chloride 0.9%) 1,000 mls @ 100 mls/hr IV .Q10H [facility] Last Admin: 10/26/17 04:39 Dose: 100 mls/hr Vancomycin/Sodium Chloride (Vancomycin 1 Gm/Ns 200 Ml) 1 gm in 200 mls @ 133 mls/hr IVPB Q24H [facility] PRN Reason: Protocol Stop: 10/30/17 18:01 Last Admin: 10/25/17 17:17 Dose: 133 mls/hr Piperacillin Sod/Tazobactam Sod (Zosyn 3.375 Gm Iv Premix) 3.375 gm in 50 mls @ 100 mls/hr IVPB Q6H [facility] PRN Reason: Protocol Stop: 10/27/17 14:01 Last Admin: 10/26/17 01:08 Dose: 100 mls/hr Insulin Aspart (Novolog) 0 unit SC Q6H [facility] PRN Reason: Protocol Last Admin: 10/26/17 05:17 Dose: 3 unit Morphine Sulfate (Morphine) 2 mg IV Q4H PRN PRN Reason: Pain, MODERATE (4-7) Last Admin: 10/25/17 15:32 Dose: 2 mg Mupirocin (Bactroban 2% Nasal) 0.5 gm BROOK BID [facility] Last Admin: 10/25/17 17:18 Dose: 0.5 gm Pantoprazole Sodium (Protonix Inj) 40 mg IVP Q12H [facility] Last Admin: 10/26/17 05:18 Dose: 40 mg Phenytoin (Dilantin) 100 mg IVP Q8H [facility] Last Admin: 10/26/17 04:35 Dose: 100 mg - Labs Labs: 10/26/17 06:04 10/26/17 06:03 PT 12.8 SECONDS (9.7-12.2) H 10/24/17 06:22 INR 1.1 10/24/17 06:22 APTT 30 SECONDS (21-34) 10/24/17 06:22 - Constitutional Appears: Non-toxic, No Acute Distress - Eye Exam Eye Exam: EOMI, PERRL - ENT Exam ENT Exam: Mucous Membranes Dry - Respiratory Exam Respiratory Exam: Clear to Ausculation Bilateral. absent: Rales, Rhonchi, Wheezes - Cardiovascular Exam Cardiovascular Exam: RRR, +S1, +S2, Murmur (systolic, loudest at aortic post) - GI/Abdominal Exam GI & Abdominal Exam: Soft, Tenderness (around surgical site, L>R), Normal Bowel Sounds. absent: Distended, Firm, Guarding, Rigid, Organomegaly Additional comments: midline surgical wound - Extremities Exam Extremities Exam: Normal Inspection. absent: Pedal Edema - Neurological Exam Neurological Exam: Alert, Awake, Oriented x3 - Psychiatric Exam Psychiatric exam: Normal Affect, Normal Mood - Skin Skin Exam: Dry, Warm Assessment and Plan - Assessment and Plan (Free Text) Assessment: Patient is a 57yo female with history of peripheral vascular disease and concern for left great toe gangrene, CAD, anemia who presented to the ED referred by her multicultural manager for concern of osteomyelitis. Our service is consulted for anemia. -Acute blood loss anemia -Acute GI hemorrhage -S/P small bowel resection for above -H/O mitral/aortic mechanical valve replacement previously on anticoagulation -Left 1st toe gangrene -CAD -PVD Plan: -S/P exploratory laparotomy with proximal and distal small bowel resection and anastomosis POD#2 -HGB has fallen again today to 10 without overt losses noted by patient/staff -Would recommend hematology input and evaluation for possibility of hemolysis given prior lab work which was suggestive of such and may be contributing to overall anemia if persistent -Consider work-up for von Willebrand disease/syndrome or Heyde syndrome given mechanical valves -NGT output improved - no longer dark black -Switched to Protonix 40mg IV BID -Monitor H/H, transfusion support as needed -Leukocytosis improved, on Vanc/Zosyn -ID following -Post-op care per surgical team -Will follow <Urban Cesar - Last Filed: 10/26/17 10:39> Objective - Vital Signs/Intake and Output Vital Signs (last 24 hours): Temp Pulse Resp BP Pulse Ox 97.4 F L 108 H 19 178/71 H 94 L 10/26/17 04:00 10/26/17 06:00 10/26/17 06:00 10/26/17 05:53 10/26/17 06:00 Intake and Output: 10/26/17 10/26/17 06:59 18:59 Intake Total 1200 100 Output Total 1100 Balance 100 100 - Medications Medications: Current Medications Amlodipine Besylate (Norvasc) 10 mg PO DAILY [facility] Last Admin: 10/20/17 09:57 Dose: Not Given Folic Acid (Folic Acid) 1 mg PO DAILY [facility] Last Admin: 10/26/17 09:19 Dose: 1 mg Hydromorphone HCl (Dilaudid) 1 mg IVP Q3H PRN PRN Reason: Pain, severe (8-10) Last Admin: 10/26/17 09:07 Dose: 1 mg Sodium Chloride (Sodium Chloride 0.9%) 1,000 mls @ 100 mls/hr IV .Q10H [facility] Last Admin: 10/26/17 04:39 Dose: 100 mls/hr Vancomycin/Sodium Chloride (Vancomycin 1 Gm/Ns 200 Ml) 1 gm in 200 mls @ 133 mls/hr IVPB Q24H [facility] PRN Reason: Protocol Stop: 10/30/17 18:01 Last Admin: 10/25/17 17:17 Dose: 133 mls/hr Piperacillin Sod/Tazobactam Sod (Zosyn 3.375 Gm Iv Premix) 3.375 gm in 50 mls @ 100 mls/hr IVPB Q6H [facility] PRN Reason: Protocol Stop: 10/27/17 14:01 Last Admin: 10/26/17 09:08 Dose: 100 mls/hr Insulin Aspart (Novolog) 0 unit SC Q6H [facility] PRN Reason: Protocol Last Admin: 10/26/17 05:17 Dose: 3 unit Morphine Sulfate (Morphine) 2 mg IV Q4H PRN PRN Reason: Pain, MODERATE (4-7) Last Admin: 10/25/17 15:32 Dose: 2 mg Mupirocin (Bactroban 2% Nasal) 0.5 gm BROOK BID [facility] Last Admin: 10/26/17 09:19 Dose: 0.5 gm Pantoprazole Sodium (Protonix Inj) 40 mg IVP Q12H [facility] Last Admin: 10/26/17 05:18 Dose: 40 mg Phenytoin (Dilantin) 100 mg IVP Q8H [facility] Last Admin: 10/26/17 04:35 Dose: 100 mg - Labs Labs: 10/26/17 06:04 10/26/17 06:03 PT 12.8 SECONDS (9.7-12.2) H 10/24/17 06:22 INR 1.1 10/24/17 06:22 APTT 30 SECONDS (21-34) 10/24/17 06:22 Attending/Attestation - Attestation I have personally seen and examined this patient.: Yes I have fully participated in the care of the patient.: Yes I have reviewed all pertinent clinical information, including history, physical exam and plan: Yes Notes (Text): 10/26/17 10:35 I have seen and examined patient with GI fellow. No acute events overnight, she is seen sitting in chair next to bedside. She complains of abdominal pain at surgical site but otherwise denies nausea, vomiting, fever/chills. No bowel movements or flatus. Minimal bilious output noted via NGT. Review of vitals shows elevated BP and tachycardia. PVD Osteomyelitis History of aortic/mitral valve replacement Overt GI bleeding, suspected small bowel source s/p partial bowel resection - NPO - H/H drop noted, though no overt blood loss, continue to monitor - Continue with PPI therapy - Follow up surgical recommendations - Incentive spirometry - Continue with antibiotic therapy - Consider hematology evaluation - Will continue to monitor patient clinical course
--- NOTE | 2017-10-26 08:28 | CP.PCM.PN ---
Subjective - Date & Time of Evaluation Date of Evaluation: 10/26/17 Time of Evaluation: 07:10 - Subjective Subjective: General surgery progress note for Dr. Gerald More, PGY-1 Pt S & E sitting in chair. Pt continues to c/o ab pain, nausea. Denies emesis, fevers, chills, flatus, BM. No other complaints. Per nursing, had brownish/green NGT overnight. Objective - Vital Signs/Intake and Output Vital Signs (last 24 hours): Temp Pulse Resp BP Pulse Ox 97.4 F L 108 H 19 178/71 H 94 L 10/26/17 04:00 10/26/17 06:00 10/26/17 06:00 10/26/17 05:53 10/26/17 06:00 Intake and Output: 10/26/17 10/26/17 06:59 18:59 Intake Total 1200 100 Output Total 1100 Balance 100 100 - Medications Medications: Current Medications Amlodipine Besylate (Norvasc) 10 mg PO DAILY [facility] Last Admin: 10/20/17 09:57 Dose: Not Given Folic Acid (Folic Acid) 1 mg PO DAILY [facility] Last Admin: 10/25/17 12:43 Dose: Not Given Hydromorphone HCl (Dilaudid) 1 mg IVP Q3H PRN PRN Reason: Pain, severe (8-10) Last Admin: 10/26/17 03:43 Dose: 1 mg Sodium Chloride (Sodium Chloride 0.9%) 1,000 mls @ 100 mls/hr IV .Q10H [facility] Last Admin: 10/26/17 04:39 Dose: 100 mls/hr Vancomycin/Sodium Chloride (Vancomycin 1 Gm/Ns 200 Ml) 1 gm in 200 mls @ 133 mls/hr IVPB Q24H [facility] PRN Reason: Protocol Stop: 10/30/17 18:01 Last Admin: 10/25/17 17:17 Dose: 133 mls/hr Piperacillin Sod/Tazobactam Sod (Zosyn 3.375 Gm Iv Premix) 3.375 gm in 50 mls @ 100 mls/hr IVPB Q6H [facility] PRN Reason: Protocol Stop: 10/27/17 14:01 Last Admin: 10/26/17 01:08 Dose: 100 mls/hr Insulin Aspart (Novolog) 0 unit SC Q6H [facility] PRN Reason: Protocol Last Admin: 10/26/17 05:17 Dose: 3 unit Morphine Sulfate (Morphine) 2 mg IV Q4H PRN PRN Reason: Pain, MODERATE (4-7) Last Admin: 10/25/17 15:32 Dose: 2 mg Mupirocin (Bactroban 2% Nasal) 0.5 gm BROOK BID [facility] Last Admin: 10/25/17 17:18 Dose: 0.5 gm Pantoprazole Sodium (Protonix Inj) 40 mg IVP Q12H [facility] Last Admin: 10/26/17 05:18 Dose: 40 mg Phenytoin (Dilantin) 100 mg IVP Q8H [facility] Last Admin: 10/26/17 04:35 Dose: 100 mg - Labs Labs: 10/26/17 06:04 10/26/17 06:03 PT 12.8 SECONDS (9.7-12.2) H 10/24/17 06:22 INR 1.1 10/24/17 06:22 APTT 30 SECONDS (21-34) 10/24/17 06:22 - Constitutional Appears: Non-toxic, No Acute Distress - Head Exam Head Exam: ATRAUMATIC, NORMAL INSPECTION, NORMOCEPHALIC Additional comments: NGT in place - Eye Exam Eye Exam: EOMI, Normal appearance - ENT Exam ENT Exam: Mucous Membranes Moist, Normal Exam - Neck Exam Neck Exam: Full ROM, Normal Inspection - Respiratory Exam Respiratory Exam: NORMAL BREATHING PATTERN - Cardiovascular Exam Cardiovascular Exam: Tachycardia, +S1, +S2 - GI/Abdominal Exam GI & Abdominal Exam: Soft, Tenderness (difuse, over surgical sites). absent: Firm, Guarding, Rigid, Rebound Additional comments: Midline dressings in place - clean/dry/intact - Extremities Exam Extremities Exam: Normal Inspection - Neurological Exam Neurological Exam: Alert, Awake, CN II-XII Intact, Oriented x3 - Psychiatric Exam Psychiatric exam: Normal Affect, Normal Mood - Skin Skin Exam: Dry, Intact, Normal Color, Warm Assessment and Plan - Assessment and Plan (Free Text) Assessment: POD #2 s/p Ex-lap w/SB resection & anastomosis x 3 Plan: Will d/c NGT when pt has bowel function Cont pain control OOBTC Encourage IS use Monitor for bleeding Monitor for bowel function Further mgmt as per primary and ICU teams Will DW attending Argenis, PGY-1
[2017-10-26 08:31] LABS: ANISOCYTOSIS SLIGHT; BURR CELLS SLIGHT; HYPOCHROMIC SLIGHT; LYMPHOCYTE 6 % (20-40); MONOCYTE 4 % (0-10); NEUTROPHIL 90 % (50-75); PLATELET ESTIMATE NORMAL (NORMAL); TOTAL CELLS COUNTED 100
[2017-10-26 08:32] LABS: LARGE PLATELETS PRESENT; POIKILOCYTOSIS SLIGHT; SMUDGE CELLS PRESENT
[2017-10-26] MEDS: Mupirocin 2% Ointment (NASAL) NAS SCH ×2 (09:19→17:01)
[2017-10-26] MEDS ORDERED: (Novolog) Insulin Aspart, Recombinant 100 u/ml 10 ml vial SC SCH (11:37)
--- NOTE | 2017-10-26 11:44 | CP.CCUPN ---
<Nicolas Zavala - Last Filed: 10/26/17 18:10> CCU Subjective - Physician Review Subjective (Free Text): 10/23/17 08:14 Patient seen and examined at bedside. Complaining of fatigue. NPO for repeat EGD and colonoscopy today. 10/24/17 10:23 Patient seen and examined. Patient reports feeling a bit better than yesterday. She is anxiously anticipating OR later today. 10/25/17 12:50 Patient seen and examined. She reports that she is feeling "so-so." Patient is complaining of abdominal pain in the region of her operation. 10/26/17 11:38 Patient seen and examined. Patient is requesting advancement of diet. However, she has not yet passed flatus or had a bowel movement. Until she does, surgery cannot clear her for advancement of diet. CCU Objective - Vital Signs / Intake & Output Intake and Output (Last 8hrs): Intake & Output 10/25/17 10/26/17 10/26/17 22:59 06:59 14:59 Intake Total 900 800 100 Output Total 575 750 Balance 325 50 100 Intake: Intake, IV Amount 900 800 100 Red Port Right Picc line 900 800 100 Output: Gastric Amount 100 50 Right Nares 100 50 Urine 475 700 Urethral (Villanueva) 225 Urine, Voided 250 700 - Physical Exam Head: Positive for: Atraumatic, Normocephalic Pupils: Positive for: PERRL Extroacular Muscles: Positive for: EOMI Conjunctiva: Positive for: Normal Mouth: Positive for: Moist Mucous Membranes Nose (External): Positive for: Other (NGT in place suctioning dark red/brown material) Neck: Positive for: Normal Range of Motion Respiratory/Chest: Positive for: Clear to Auscultation, Good Air Exchange. Negative for: Respiratory Distress, Accessory Muscle Use Cardiovascular: Positive for: Regular Rate and Rhythm, Normal S1, S2, Other ( systolic murmur). Negative for: Tachycardic Abdomen: Positive for: Normal Bowel Sounds. Negative for: Tenderness, Distention Upper Extremity: Positive for: Normal Inspection Lower Extremity: Positive for: Other (Right toe dressing intact) Neurological: Positive for: GCS=15 Skin: Positive for: Warm, Dry, Normal Color Psychiatric: Positive for: Alert, Oriented x 3 - Medications Active Medications: Active Medications Generic Name Dose Route Start Last Admin Trade Name Freq PRN Reason Stop Dose Admin Amlodipine Besylate 10 mg 10/15/17 10:00 10/20/17 09:57 Norvasc PO Not Given DAILY [facility] Folic Acid 1 mg 10/15/17 10:00 10/26/17 09:19 Folic Acid PO 1 mg DAILY [facility] Administration Vancomycin/Sodium Chloride 1 gm in 200 mls @ 133 mls/hr 10/25/17 18:00 17:17 Vancomycin 1 Gm/Ns 200 Ml IVPB 10/30/17 18:01 133 mls/hr Q24H [facility] Administration Protocol Piperacillin Sod/Tazobactam Sod 3.375 gm in 50 mls @ 100 mls/hr 10/25/17 14: 00 10/26/17 09:08 Zosyn 3.375 Gm Iv Premix IVPB 10/27/17 14:01 100 mls/hr Q6H [facility] Administration Protocol Potassium Chloride 20 meq/ 1,010 mls @ 100 mls/hr 10/26/17 11:15 Dextrose/Sodium Chloride IV .Q10H6M [facility] Insulin Aspart 0 unit 10/26/17 11:37 Novolog SC Q6H [facility] Protocol Morphine Sulfate 2 mg 10/24/17 15:45 10/25/17 15:32 Morphine IV 2 mg Q4H PRN Administration Pain, MODERATE (4-7) Morphine Sulfate 4 mg 10/26/17 11:15 Morphine IVP Q3H PRN Pain, severe (8-10) Mupirocin 0.5 gm 10/21/17 10:00 10/26/17 09:19 Bactroban 2% Nasal BROOK 0.5 gm BID [facility] Administration Pantoprazole Sodium 40 mg 10/25/17 18:00 10/26/17 05:18 Protonix Inj IVP 40 mg Q12H [facility] Administration Phenytoin 100 mg 10/18/17 20:45 10/26/17 04:35 Dilantin IVP 100 mg Q8H [facility] Administration - Patient Studies Lab Studies: Lab Studies 10/26/17 10/26/17 10/26/17 Range/Units 11:16 06:04 06:03 WBC 13.4 H (4.8-10.8) K/uL RBC 3.55 L (3.80-5.20) Mil/uL Hgb 10.5 L (11.0-16.0) g/dL Hct 31.4 L (34.0-47.0) % MCV 88.4 (81.0-99.0) fL MCH 29.5 (27.0-31.0) pg MCHC 33.4 (33.0-37.0) g/dL RDW 16.9 H (11.5-14.5) % Plt Count 235 (130-400) K/uL MPV 8.8 (7.2-11.7) fL Neut % (Auto) 88.1 H (50.0-75.0) % Lymph % (Auto) 6.2 L (20.0-40.0) % [place] % (Auto) 4.7 (0.0-10.0) % Eos % (Auto) 0.8 (0.0-4.0) % Baso % (Auto) 0.2 (0.0-2.0) % Neut # (Auto) 11.8 H (1.8-7.0) K/uL Lymph # (Auto) 0.8 L (1.0-4.3) K/uL [place] # (Auto) 0.6 (0.0-0.8) K/uL Eos # (Auto) 0.1 (0.0-0.7) K/uL Baso # (Auto) 0.0 (0.0-0.2) K/uL Neutrophils % (Manual) 90 H (50-75) % Lymphocytes % (Manual) 6 L (20-40) % Monocytes % (Manual) 4 (0-10) % Smudge Cells Present Platelet Estimate Normal (NORMAL) Large Platelets Present Hypochromasia (manual) Slight Poikilocytosis (manual Slight Anisocytosis (manual) Slight Addi Cells Slight Sodium 140 (132-148) mmol/L Potassium 3.9 (3.6-5.2) mmol/L Chloride 108 H (98-107) mmol/L Carbon Dioxide 20 L (22-30) mmol/L Anion Gap 15 (10-20) BUN 5 L (7-17) mg/dL Creatinine 0.8 (0.7-1.2) mg/dL Est GFR ( Amer) > 60 Est GFR (Non-Af Amer) > 60 POC Glucose (mg/dL) 233 H (65-110) mg/dL Random Glucose 245 H (65-105) mg/dL Calcium 8.1 L (8.6-10.4) mg/dl Phosphorus 2.5 (2.5-4.5) mg/dL Magnesium 1.7 (1.6-2.3) mg/dL Total Bilirubin 0.5 (0.2-1.3) mg/dL AST 21 (14-36) U/L ALT 12 (9-52) U/L Alkaline Phosphatase 101 (38-126) U/L Total Protein 5.5 L (6.3-8.3) g/dL Albumin 2.5 L (3.5-5.0) g/dL Globulin 3.1 (2.2-3.9) gm/dL Albumin/Globulin Ratio 0.8 L (1.0-2.1) 10/26/17 10/25/17 10/25/17 Range/Units 05:13 23:30 17:49 WBC (4.8-10.8) K/uL RBC (3.80-5.20) Mil/uL Hgb (11.0-16.0) g/dL Hct (34.0-47.0) % MCV (81.0-99.0) fL MCH (27.0-31.0) pg MCHC (33.0-37.0) g/dL RDW (11.5-14.5) % Plt Count (130-400) K/uL MPV (7.2-11.7) fL Neut % (Auto) (50.0-75.0) % Lymph % (Auto) (20.0-40.0) % [place] % (Auto) (0.0-10.0) % Eos % (Auto) (0.0-4.0) % Baso % (Auto) (0.0-2.0) % Neut # (Auto) (1.8-7.0) K/uL Lymph # (Auto) (1.0-4.3) K/uL [place] # (Auto) (0.0-0.8) K/uL Eos # (Auto) (0.0-0.7) K/uL Baso # (Auto) (0.0-0.2) K/uL Neutrophils % (Manual) (50-75) % Lymphocytes % (Manual) (20-40) % Monocytes % (Manual) (0-10) % Smudge Cells Platelet Estimate (NORMAL) Large Platelets Hypochromasia (manual) Poikilocytosis (manual Anisocytosis (manual) Addi Cells Sodium (132-148) mmol/L Potassium (3.6-5.2) mmol/L Chloride (98-107) mmol/L Carbon Dioxide (22-30) mmol/L Anion Gap (10-20) BUN (7-17) mg/dL Creatinine (0.7-1.2) mg/dL Est GFR ( Amer) Est GFR (Non-Af Amer) POC Glucose (mg/dL) 240 H 245 H 219 H (65-110) mg/dL Random Glucose (65-105) mg/dL Calcium (8.6-10.4) mg/dl Phosphorus (2.5-4.5) mg/dL Magnesium (1.6-2.3) mg/dL Total Bilirubin (0.2-1.3) mg/dL AST (14-36) U/L ALT (9-52) U/L Alkaline Phosphatase (38-126) U/L Total Protein (6.3-8.3) g/dL Albumin (3.5-5.0) g/dL Globulin (2.2-3.9) gm/dL Albumin/Globulin Ratio (1.0-2.1) 10/25/17 Range/Units 11:36 WBC (4.8-10.8) K/uL RBC (3.80-5.20) Mil/uL Hgb (11.0-16.0) g/dL Hct (34.0-47.0) % MCV (81.0-99.0) fL MCH (27.0-31.0) pg MCHC (33.0-37.0) g/dL RDW (11.5-14.5) % Plt Count (130-400) K/uL MPV (7.2-11.7) fL Neut % (Auto) (50.0-75.0) % Lymph % (Auto) (20.0-40.0) % [place] % (Auto) (0.0-10.0) % Eos % (Auto) (0.0-4.0) % Baso % (Auto) (0.0-2.0) % Neut # (Auto) (1.8-7.0) K/uL Lymph # (Auto) (1.0-4.3) K/uL [place] # (Auto) (0.0-0.8) K/uL Eos # (Auto) (0.0-0.7) K/uL Baso # (Auto) (0.0-0.2) K/uL Neutrophils % (Manual) (50-75) % Lymphocytes % (Manual) (20-40) % Monocytes % (Manual) (0-10) % Smudge Cells Platelet Estimate (NORMAL) Large Platelets Hypochromasia (manual) Poikilocytosis (manual Anisocytosis (manual) Addi Cells Sodium (132-148) mmol/L Potassium (3.6-5.2) mmol/L Chloride (98-107) mmol/L Carbon Dioxide (22-30) mmol/L Anion Gap (10-20) BUN (7-17) mg/dL Creatinine (0.7-1.2) mg/dL Est GFR ( Amer) Est GFR (Non-Af Amer) POC Glucose (mg/dL) 260 H (65-110) mg/dL Random Glucose (65-105) mg/dL Calcium (8.6-10.4) mg/dl Phosphorus (2.5-4.5) mg/dL Magnesium (1.6-2.3) mg/dL Total Bilirubin (0.2-1.3) mg/dL AST (14-36) U/L ALT (9-52) U/L Alkaline Phosphatase (38-126) U/L Total Protein (6.3-8.3) g/dL Albumin (3.5-5.0) g/dL Globulin (2.2-3.9) gm/dL Albumin/Globulin Ratio (1.0-2.1) Laboratory Results - last 24 hr 10/25/17 10/25/17 10/25/17 11:36 17:49 23:30 WBC RBC Hgb Hct MCV MCH MCHC RDW Plt Count MPV Neut % (Auto) Lymph % (Auto) [place] % (Auto) Eos % (Auto) Baso % (Auto) Neut # (Auto) Lymph # (Auto) [place] # (Auto) Eos # (Auto) Baso # (Auto) Neutrophils % (Manual) Lymphocytes % (Manual) Monocytes % (Manual) Smudge Cells Platelet Estimate Large Platelets Hypochromasia (manual) Poikilocytosis (manual Anisocytosis (manual) [place] Cells Sodium Potassium Chloride Carbon Dioxide Anion Gap BUN Creatinine Est GFR ( Amer) Est GFR (Non-Af Amer) POC Glucose (mg/dL) 260 H 219 H 245 H Random Glucose Calcium Phosphorus Magnesium Total Bilirubin AST ALT Alkaline Phosphatase Total Protein Albumin Globulin Albumin/Globulin Ratio 10/26/17 10/26/17 10/26/17 05:13 06:03 06:04 WBC 13.4 H RBC 3.55 L Hgb 10.5 L Hct 31.4 L MCV 88.4 MCH 29.5 MCHC 33.4 RDW 16.9 H Plt Count 235 MPV 8.8 Neut % (Auto) 88.1 H Lymph % (Auto) 6.2 L [place] % (Auto) 4.7 Eos % (Auto) 0.8 Baso % (Auto) 0.2 Neut # (Auto) 11.8 H Lymph # (Auto) 0.8 L [place] # (Auto) 0.6 Eos # (Auto) 0.1 Baso # (Auto) 0.0 Neutrophils % (Manual) 90 H Lymphocytes % (Manual) 6 L Monocytes % (Manual) 4 Smudge Cells Present Platelet Estimate Normal Large Platelets Present Hypochromasia (manual) Slight Poikilocytosis (manual Slight Anisocytosis (manual) Slight [place] Cells Slight Sodium 140 Potassium 3.9 Chloride 108 H Carbon Dioxide 20 L Anion Gap 15 BUN 5 L Creatinine 0.8 Est GFR ( Amer) > 60 Est GFR (Non-Af Amer) > 60 POC Glucose (mg/dL) 240 H Random Glucose 245 H Calcium 8.1 L Phosphorus 2.5 Magnesium 1.7 Total Bilirubin 0.5 AST 21 ALT 12 Alkaline Phosphatase 101 Total Protein 5.5 L Albumin 2.5 L Globulin 3.1 Albumin/Globulin Ratio 0.8 L 10/26/17 11:16 WBC RBC Hgb Hct MCV MCH MCHC RDW Plt Count MPV Neut % (Auto) Lymph % (Auto) [place] % (Auto) Eos % (Auto) Baso % (Auto) Neut # (Auto) Lymph # (Auto) [place] # (Auto) Eos # (Auto) Baso # (Auto) Neutrophils % (Manual) Lymphocytes % (Manual) Monocytes % (Manual) Smudge Cells Platelet Estimate Large Platelets Hypochromasia (manual) Poikilocytosis (manual Anisocytosis (manual) [place] Cells Sodium Potassium Chloride Carbon Dioxide Anion Gap BUN Creatinine Est GFR ( Amer) Est GFR (Non-Af Amer) POC Glucose (mg/dL) 233 H Random Glucose Calcium Phosphorus Magnesium Total Bilirubin AST ALT Alkaline Phosphatase Total Protein Albumin Globulin Albumin/Globulin Ratio EKG/Cardiology Studies: Cardiology / EKG Studies 10/25/17 15:00 EKG [ELECTROCARDIOGRAM] Routine Comment: Mode Of Transportation: Reason For Exam: postop Isolation: Contact Fingerstick Blood Sugar Results: 240 Critical Care Progress Note - Nutrition Nutrition: Nutrition Category Date Time Status NPO Diet [DIET] Diets 10/24/17 Breakfast Active Assessment/Plan - Assessment and Plan (Free Text) Assessment: Patient is a 57 year old female with past medical history of Diabetes, Mechanical aortic/mitral valve, chronic smoker, seizure disorder, PVD presented to the hospital initially for left toe infection. Was started on heparin drip. While on the floor patient started having bloody bowel movements. All anticoagulation on hold. Went for EGD prior which showed non-bleeding gastric ulcers and duodenitis. Transferred to the ICU for further monitoring. On 10/24/17 , patient underwent exploratory laparotomy where a questionable lesion proximal to the ligament of Trietz was resected as well as the distal small bowel in an effort to stop the patient's GI bleed. The regions were then anastomosed. She is POD #2. Neuro AAOx3 Seizure disorder on Dilantin 100 mg IV Q8 Cardio Currently holding Norvasc 10 mg PO daily Monitor BP History of mitral and aortic mechanical valves, currently holding anticoagulation due to significant GI bleed Labetalol 10 mg IV Q6H with holding parameters Pulmonary saturating well on room air GI Protonix 40 mg IV Q12H Prior EGD showed multiple non-bleeding gastric ulcers and duodenitis Prior colonoscopy had inadequate preparation but did show much melena/coffee ground material throughout the colon Repeat EGD up to the jejunum negative However, repeat colonoscopy showed fresh pooling of blood from the region of the ileocecal valve indicating likely small bowel bleed Patient NPO until cleared by surgery ID Left foot wound grew MRSA Vancomycin 1 gm Q24H Zosyn 3.375 gm Q6H for 48 hours starting yesterday per ID Contact precaution Endocrine Novolog sliding scale J2O--snic dose Accuchecks Heme/Onc Hemoglobin 11.4 this morning. Patient has received 14 units pRBCs in total on this admission Continue to monitor GI/DVT Prophylaxis VTE ppx contraindicated due to GI bleed Protonix 40 mg IV Q12H Discussed with Dr. Clark <Javon Clark M - Last Filed: 10/27/17 15:33> CCU Objective - Vital Signs / Intake & Output Vital Signs (Last 4 hours): Vital Signs Temp Pulse Resp BP Pulse Ox 10/27/17 12:00 98.5 F 86 16 134/48 L 99 10/27/17 11:53 84 9 L 134/48 L Intake and Output (Last 8hrs): Intake & Output 10/27/17 10/27/17 10/27/17 06:59 14:59 22:59 Intake Total 850 560 Output Total 920 Balance 850 -360 Weight 216 lb 8 oz Intake: Intake, IV Amount 850 400 Purple port Right PICC 800 400 line Red Port Right Picc line 50 Oral 160 Output: Urine 920 Urine, Voided 920 Other: # Voids Urine, Voided 1 - Medications Active Medications: Active Medications Generic Name Dose Route Start Last Admin Trade Name Freq PRN Reason Stop Dose Admin Amlodipine Besylate 10 mg 10/15/17 10:00 10/20/17 09:57 Norvasc PO Not Given DAILY [facility] Enalaprilat 1.25 mg 10/27/17 12:26 Vasotec IV Q6 [facility] Vancomycin/Sodium Chloride 1 gm in 200 mls @ 133 mls/hr 10/25/17 18:00 17:02 Vancomycin 1 Gm/Ns 200 Ml IVPB 10/30/17 18:01 133 mls/hr Q24H [facility] Administration Protocol Multivitamins/Vitamin C 10 ml/ 1,010.1 mls @ 104 mls/hr 10/27/17 18:00 Insulin Human Regular 10 unit IV 10/28/17 03:42 / Amino Acids .Q9H43M [facility] Insulin Human Regular 10 unit/ 1,000.1 mls @ 104 mls/hr 10/28/17 03:43 Amino Acids IV 10/28/17 13:19 .Q9H37M ONE Insulin Human Regular 10 unit/ 1,000.1 mls @ 104 mls/hr 10/28/17 13:20 Amino Acids IV 10/28/17 17:59 .Q9H37M [facility] Folic Acid 1 mg/ Sodium 100.2 mls @ 60 mls/hr 10/27/17 10:00 10/27/17 11:50 Chloride IV 60 mls/hr DAILY [facility] Administration Insulin Aspart 0 unit 10/26/17 18:00 10/27/17 12:27 Novolog SC 6 unit Q6 [facility] Administration Protocol Metoprolol Tartrate 5 mg 10/26/17 21:15 10/27/17 15:32 Lopressor IVP 5 mg Q6H [facility] Administration Morphine Sulfate 2 mg 10/24/17 15:45 10/25/17 15:32 Morphine IV 2 mg Q4H PRN Administration Pain, MODERATE (4-7) Morphine Sulfate 4 mg 10/26/17 11:15 10/27/17 10:30 Morphine IVP 4 mg Q3H PRN Administration Pain, severe (8-10) Mupirocin 0.5 gm 10/21/17 10:00 10/26/17 17:01 Bactroban 2% Nasal BROOK 0.5 gm BID [facility]IA Administration Pantoprazole Sodium 40 mg 10/25/17 18:00 10/27/17 05:43 Protonix Inj IVP 40 mg Q12H [facility] Administration Phenytoin 100 mg 10/18/17 20:45 10/27/17 12:28 Dilantin IVP 100 mg Q8H [facility] Administration - Patient Studies Lab Studies: Lab Studies 10/27/17 10/27/17 10/27/17 Range/Units 12:17 12:00 12:00 WBC (4.8-10.8) K/uL RBC (3.80-5.20) Mil/uL Hgb (11.0-16.0) g/dL Hct (34.0-47.0) % MCV (81.0-99.0) fL MCH (27.0-31.0) pg MCHC (33.0-37.0) g/dL RDW (11.5-14.5) % Plt Count (130-400) K/uL MPV (7.2-11.7) fL Neut % (Auto) (50.0-75.0) % Lymph % (Auto) (20.0-40.0) % [place] % (Auto) (0.0-10.0) % Eos % (Auto) (0.0-4.0) % Baso % (Auto) (0.0-2.0) % Neut # (Auto) (1.8-7.0) K/uL Lymph # (Auto) (1.0-4.3) K/uL [place] # (Auto) (0.0-0.8) K/uL Eos # (Auto) (0.0-0.7) K/uL Baso # (Auto) (0.0-0.2) K/uL Neutrophils % (Manual) (50-75) % Lymphocytes % (Manual) (20-40) % Monocytes % (Manual) (0-10) % Platelet Estimate (NORMAL) Giant Platelets Hypochromasia (manual) Poikilocytosis (manual Anisocytosis (manual) Target Cells Ovalocytes Addi Cells Retic Count 4.5 H D (0.5-1.5) % Sodium Potassium Chloride Carbon Dioxide Anion Gap BUN Creatinine (0.7-1.2) mg/dL Est GFR ( Amer) Est GFR (Non-Af Amer) POC Glucose (mg/dL) (65-110) mg/dL Random Glucose Calcium Phosphorus (2.5-4.5) mg/dL Magnesium (1.6-2.3) mg/dL Ferritin 102.0 ng/mL Total Bilirubin AST ALT Alkaline Phosphatase Total Protein Albumin Globulin Albumin/Globulin Ratio Vitamin B12 824 (239-931) pg/mL Folate 13.8 ng/mL Blood Type A POSITIVE Antibody Screen Negative ELISEO, Poly Interpret Negative (NEGATIVE) 10/27/17 10/27/17 10/27/17 Range/Units 11:25 08:06 06:11 WBC (4.8-10.8) K/uL RBC (3.80-5.20) Mil/uL Hgb (11.0-16.0) g/dL Hct (34.0-47.0) % MCV (81.0-99.0) fL MCH (27.0-31.0) pg MCHC (33.0-37.0) g/dL RDW (11.5-14.5) % Plt Count (130-400) K/uL MPV (7.2-11.7) fL Neut % (Auto) (50.0-75.0) % Lymph % (Auto) (20.0-40.0) % [place] % (Auto) (0.0-10.0) % Eos % (Auto) (0.0-4.0) % Baso % (Auto) (0.0-2.0) % Neut # (Auto) (1.8-7.0) K/uL Lymph # (Auto) (1.0-4.3) K/uL [place] # (Auto) (0.0-0.8) K/uL Eos # (Auto) (0.0-0.7) K/uL Baso # (Auto) (0.0-0.2) K/uL Neutrophils % (Manual) (50-75) % Lymphocytes % (Manual) (20-40) % Monocytes % (Manual) (0-10) % Platelet Estimate (NORMAL) Giant Platelets Hypochromasia (manual) Poikilocytosis (manual Anisocytosis (manual) Target Cells Ovalocytes Addi Cells Retic Count (0.5-1.5) % Sodium 138 Cancelled Potassium 4.3 Cancelled Chloride 106 Cancelled Carbon Dioxide 20 L Cancelled Anion Gap 17 Cancelled BUN 9 Cancelled Creatinine 0.9 0.7 (0.7-1.2) mg/dL Est GFR ( Amer) > 60 Cancelled Est GFR (Non-Af Amer) > 60 Cancelled POC Glucose (mg/dL) 260 H (65-110) mg/dL Random Glucose 359 H Cancelled Calcium 8.4 L Cancelled Phosphorus 2.8 (2.5-4.5) mg/dL Magnesium 1.3 L (1.6-2.3) mg/dL Ferritin ng/mL Total Bilirubin 0.5 Cancelled AST 23 Cancelled ALT < 6 L D Cancelled Alkaline Phosphatase 95 Cancelled Total Protein 5.8 L Cancelled Albumin 2.6 L Cancelled Globulin 3.2 Cancelled Albumin/Globulin Ratio 0.8 L Cancelled Vitamin B12 (239-931) pg/mL Folate ng/mL Blood Type Antibody Screen ELISEO, Poly Interpret (NEGATIVE) 10/27/17 10/27/17 10/26/17 Range/Units 06:11 05:46 23:36 WBC 10.8 (4.8-10.8) K/uL RBC 2.87 L (3.80-5.20) Mil/uL Hgb 8.6 L (11.0-16.0) g/dL Hct 26.2 L (34.0-47.0) % MCV 91.3 D (81.0-99.0) fL MCH 29.8 (27.0-31.0) pg MCHC 32.6 L (33.0-37.0) g/dL RDW 17.3 H (11.5-14.5) % Plt Count 228 (130-400) K/uL MPV 8.8 (7.2-11.7) fL Neut % (Auto) 86.1 H (50.0-75.0) % Lymph % (Auto) 7.3 L (20.0-40.0) % [place] % (Auto) 5.5 (0.0-10.0) % Eos % (Auto) 0.1 (0.0-4.0) % Baso % (Auto) 1.0 (0.0-2.0) % Neut # (Auto) 9.3 H (1.8-7.0) K/uL Lymph # (Auto) 0.8 L (1.0-4.3) K/uL [place] # (Auto) 0.6 (0.0-0.8) K/uL Eos # (Auto) 0.0 (0.0-0.7) K/uL Baso # (Auto) 0.1 (0.0-0.2) K/uL Neutrophils % (Manual) 85 H (50-75) % Lymphocytes % (Manual) 7 L (20-40) % Monocytes % (Manual) 8 (0-10) % Platelet Estimate Normal (NORMAL) Giant Platelets Present Hypochromasia (manual) Slight Poikilocytosis (manual Slight Anisocytosis (manual) Slight Target Cells Slight Ovalocytes Slight Addi Cells Slight Retic Count (0.5-1.5) % Sodium Potassium Chloride Carbon Dioxide Anion Gap BUN Creatinine (0.7-1.2) mg/dL Est GFR ( Amer) Est GFR (Non-Af Amer) POC Glucose (mg/dL) 355 H 382 H (65-110) mg/dL Random Glucose Calcium Phosphorus (2.5-4.5) mg/dL Magnesium (1.6-2.3) mg/dL Ferritin ng/mL Total Bilirubin AST ALT Alkaline Phosphatase Total Protein Albumin Globulin Albumin/Globulin Ratio Vitamin B12 (239-931) pg/mL Folate ng/mL Blood Type Antibody Screen ELISEO, Poly Interpret (NEGATIVE) 10/26/17 Range/Units 17:39 WBC (4.8-10.8) K/uL RBC (3.80-5.20) Mil/uL Hgb (11.0-16.0) g/dL Hct (34.0-47.0) % MCV (81.0-99.0) fL MCH (27.0-31.0) pg MCHC (33.0-37.0) g/dL RDW (11.5-14.5) % Plt Count (130-400) K/uL MPV (7.2-11.7) fL Neut % (Auto) (50.0-75.0) % Lymph % (Auto) (20.0-40.0) % [place] % (Auto) (0.0-10.0) % Eos % (Auto) (0.0-4.0) % Baso % (Auto) (0.0-2.0) % Neut # (Auto) (1.8-7.0) K/uL Lymph # (Auto) (1.0-4.3) K/uL [place] # (Auto) (0.0-0.8) K/uL Eos # (Auto) (0.0-0.7) K/uL Baso # (Auto) (0.0-0.2) K/uL Neutrophils % (Manual) (50-75) % Lymphocytes % (Manual) (20-40) % Monocytes % (Manual) (0-10) % Platelet Estimate (NORMAL) Giant Platelets Hypochromasia (manual) Poikilocytosis (manual Anisocytosis (manual) Target Cells Ovalocytes [place] Cells Retic Count (0.5-1.5) % Sodium Potassium Chloride Carbon Dioxide Anion Gap BUN Creatinine (0.7-1.2) mg/dL Est GFR ( Amer) Est GFR (Non-Af Amer) POC Glucose (mg/dL) 293 H (65-110) mg/dL Random Glucose Calcium Phosphorus (2.5-4.5) mg/dL Magnesium (1.6-2.3) mg/dL Ferritin ng/mL Total Bilirubin AST ALT Alkaline Phosphatase Total Protein Albumin Globulin Albumin/Globulin Ratio Vitamin B12 (239-931) pg/mL Folate ng/mL Blood Type Antibody Screen ELISEO, Poly Interpret (NEGATIVE) Laboratory Results - last 24 hr 10/26/17 10/26/17 10/27/17 17:39 23:36 05:46 WBC RBC Hgb Hct MCV MCH MCHC RDW Plt Count MPV Neut % (Auto) Lymph % (Auto) [place] % (Auto) Eos % (Auto) Baso % (Auto) Neut # (Auto) Lymph # (Auto) [place] # (Auto) Eos # (Auto) Baso # (Auto) Neutrophils % (Manual) Lymphocytes % (Manual) Monocytes % (Manual) Platelet Estimate Giant Platelets Hypochromasia (manual) Poikilocytosis (manual Anisocytosis (manual) Target Cells Ovalocytes Addi Cells Retic Count Sodium Potassium Chloride Carbon Dioxide Anion Gap BUN Creatinine Est GFR ( Amer) Est GFR (Non-Af Amer) POC Glucose (mg/dL) 293 H 382 H 355 H Random Glucose Calcium Phosphorus Magnesium Ferritin Total Bilirubin AST ALT Alkaline Phosphatase Total Protein Albumin Globulin Albumin/Globulin Ratio Vitamin B12 Folate Blood Type Antibody Screen ELISEO, Poly Interpret 10/27/17 10/27/17 10/27/17 06:11 06:11 08:06 WBC 10.8 RBC 2.87 L Hgb 8.6 L Hct 26.2 L MCV 91.3 D MCH 29.8 MCHC 32.6 L RDW 17.3 H Plt Count 228 MPV 8.8 Neut % (Auto) 86.1 H Lymph % (Auto) 7.3 L [place] % (Auto) 5.5 Eos % (Auto) 0.1 Baso % (Auto) 1.0 Neut # (Auto) 9.3 H Lymph # (Auto) 0.8 L [place] # (Auto) 0.6 Eos # (Auto) 0.0 Baso # (Auto) 0.1 Neutrophils % (Manual) 85 H Lymphocytes % (Manual) 7 L Monocytes % (Manual) 8 Platelet Estimate Normal Giant Platelets Present Hypochromasia (manual) Slight Poikilocytosis (manual Slight Anisocytosis (manual) Slight Target Cells Slight Ovalocytes Slight Addi Cells Slight Retic Count Sodium Cancelled 138 Potassium Cancelled 4.3 Chloride Cancelled 106 Carbon Dioxide Cancelled 20 L Anion Gap Cancelled 17 BUN Cancelled 9 Creatinine 0.7 0.9 Est GFR ( Amer) Cancelled > 60 Est GFR (Non-Af Amer) Cancelled > 60 POC Glucose (mg/dL) Random Glucose Cancelled 359 H Calcium Cancelled 8.4 L Phosphorus 2.8 Magnesium 1.3 L Ferritin Total Bilirubin Cancelled 0.5 AST Cancelled 23 ALT Cancelled < 6 L D Alkaline Phosphatase Cancelled 95 Total Protein Cancelled 5.8 L Albumin Cancelled 2.6 L Globulin Cancelled 3.2 Albumin/Globulin Ratio Cancelled 0.8 L Vitamin B12 Folate Blood Type Antibody Screen ELISEO, Poly Interpret 10/27/17 10/27/17 10/27/17 11:25 12:00 12:00 WBC RBC Hgb Hct MCV MCH MCHC RDW Plt Count MPV Neut % (Auto) Lymph % (Auto) [place] % (Auto) Eos % (Auto) Baso % (Auto) Neut # (Auto) Lymph # (Auto) [place] # (Auto) Eos # (Auto) Baso # (Auto) Neutrophils % (Manual) Lymphocytes % (Manual) Monocytes % (Manual) Platelet Estimate Giant Platelets Hypochromasia (manual) Poikilocytosis (manual Anisocytosis (manual) Target Cells Ovalocytes Addi Cells Retic Count 4.5 H D Sodium Potassium Chloride Carbon Dioxide Anion Gap BUN Creatinine Est GFR ( Amer) Est GFR (Non-Af Amer) POC Glucose (mg/dL) 260 H Random Glucose Calcium Phosphorus Magnesium Ferritin 102.0 Total Bilirubin AST ALT Alkaline Phosphatase Total Protein Albumin Globulin Albumin/Globulin Ratio Vitamin B12 824 Folate 13.8 Blood Type Antibody Screen ELISEO, Poly Interpret 10/27/17 12:17 WBC RBC Hgb Hct MCV MCH MCHC RDW Plt Count MPV Neut % (Auto) Lymph % (Auto) [place] % (Auto) Eos % (Auto) Baso % (Auto) Neut # (Auto) Lymph # (Auto) [place] # (Auto) Eos # (Auto) Baso # (Auto) Neutrophils % (Manual) Lymphocytes % (Manual) Monocytes % (Manual) Platelet Estimate Giant Platelets Hypochromasia (manual) Poikilocytosis (manual Anisocytosis (manual) Target Cells Ovalocytes [place] Cells Retic Count Sodium Potassium Chloride Carbon Dioxide Anion Gap BUN Creatinine Est GFR ( Amer) Est GFR (Non-Af Amer) POC Glucose (mg/dL) Random Glucose Calcium Phosphorus Magnesium Ferritin Total Bilirubin AST ALT Alkaline Phosphatase Total Protein Albumin Globulin Albumin/Globulin Ratio Vitamin B12 Folate Blood Type A POSITIVE Antibody Screen Negative ELISEO, Poly Interpret Negative Critical Care Progress Note - Nutrition Nutrition: Nutrition Category Date Time Status Liquid Diet [DIET] Diets 10/27/17 Breakfast Active Attending/Attestation - Attestation I have personally seen and examined this patient.: Yes I have fully participated in the care of the patient.: Yes I have reviewed all pertinent clinical information: Yes Notes (Text): 10/26/17 Today: , October 26, 2017 The Patient was seen and examined at the bedside, Medical records reviewed, and management issues were discussed and formulated with the house staff. I have reviewed all the relevant clinical, laboratory, hemodynamic, radiographic data and medications Events reviewed Pain issues, skin care, head of the bed elevation, glycemic control were addressed. Agree with above resident's assessment and treatment plans of care as transcribed in Dr. Zavala note.
[2017-10-26] MEDS: Potassium Chloride 20 MEQ in Dextrose 5%/0.45% NS 1,000 ML IV SCH ×2 (12:00→21:32)
[2017-10-26] MEDS ORDERED: Labetalol 25mg/5ml Syringe IVP STA ×2 (13:30→17:50)
--- NOTE | 2017-10-26 14:01 | PN ---
DATE: SUBJECTIVE: The patient still has nasogastric tube suction. She denies any chest pain or shortness of breath. No reported ventricular tachycardia or hypotension. PHYSICAL EXAMINATION VITAL SIGNS: Blood pressure 176/72, heart rate 106, temperature 97.4, respirations 12. HEENT: Pale conjunctivae. CHEST: Diminished breath sounds over the bases. HEART: S1 and S2, regular. Grade 2/6 ejection systolic murmur over the left sternal border. ABDOMEN: Absent bowel sounds. EXTREMITIES: Trace leg edema. LABORATORY DATA: SMA-7: Sodium 140, potassium 3.9, chloride 108, CO2 20, glucose 145, BUN 5, creatinine 0.8. Today's hemoglobin and hematocrit are 10.5 and 31.4, white count 15.4, platelet count 235,000. EKG done yesterday revealed sinus tachycardia at 102, T wave abnormality, consider lateral ischemic Q wave inversion. ASSESSMENT: 1. Status post distal small bowel resection. 2. History of prosthetic mitral and aortic valve replacement in 2008. 3. Peripheral vascular disease, status post recent stenting to the left lower extremity. 4. Gastrointestinal bleeding. 5. Gangrenous left big toe changes. 6. Hypertension and diabetes mellitus. RECOMMENDATIONS: Continue current folic acid 1 mg daily, Norvasc 10 mg once a day, IV potassium replacement 20 mEq, Protonix 40 mg intravenously twice a day, continue IV Zosyn and IV vancomycin. Resumption of anticoagulation will be justified after further observation and after surgical clearance and gastrointestinal clearance. Kraig Sheldon MD
[2017-10-26] MEDS: Labetalol 25mg/5ml Syringe IVP SCH ×2 (14:57→20:10)
[2017-10-26] MEDS: Morphine 4 MG/ML VIAL IVP PRN ×2 (15:39→21:31)
[2017-10-26] MEDS: Vancomycin 1 gm/NS 200 ml 1 GM/200 ML BAG IVPB SCH (17:02)
[2017-10-26] MEDS ORDERED: Enalaprilat 2.5 MG/2 ML IV ONE (18:28)
[2017-10-26] MEDS: Metoprolol 1 mg/ml Inj IVP SCH (21:20)
--- NOTE | 2017-10-26 23:44 | CP.PCM.PN ---
Subjective - Date & Time of Evaluation Date of Evaluation: 10/26/17 Time of Evaluation: 17:30 - Subjective Subjective: PT SEEN AND EXAMINED, CONTINUES TO RECOVER POST OPERATIVELY, S/P SMALL INTESTINAL BLEED AND RESECTION OFF HEPARIN Objective - Vital Signs/Intake and Output Vital Signs (last 24 hours): Temp Pulse Resp BP Pulse Ox 98.2 F 93 H 15 176/71 H 100 10/26/17 20:00 10/26/17 22:00 10/26/17 22:00 10/26/17 21:53 10/26/17 22:00 Intake and Output: 10/26/17 10/27/17 18:59 06:59 Intake Total 1083 450 Output Total 2300 Balance -1217 450 - Medications Medications: Current Medications Amlodipine Besylate (Norvasc) 10 mg PO DAILY [facility] Last Admin: 10/20/17 09:57 Dose: Not Given Enalaprilat (Vasotec) 1.25 mg IV Q6 [facility] Folic Acid (Folic Acid) 1 mg PO DAILY [facility] Last Admin: 10/26/17 09:19 Dose: 1 mg Vancomycin/Sodium Chloride (Vancomycin 1 Gm/Ns 200 Ml) 1 gm in 200 mls @ 133 mls/hr IVPB Q24H [facility] PRN Reason: Protocol Stop: 10/30/17 18:01 Last Admin: 10/26/17 17:02 Dose: 133 mls/hr Potassium Chloride 20 meq/ (Dextrose/Sodium Chloride) 1,010 mls @ 100 mls/hr IV .Q10H6M [facility] Last Admin: 10/26/17 21:32 Dose: Not Given Piperacillin Sod/Tazobactam Sod (Zosyn 3.375 Gm Iv Premix) 3.375 gm in 50 mls @ 100 mls/hr IVPB Q6H [facility] Stop: 10/27/17 11:29 Last Admin: 10/26/17 17:13 Dose: 100 mls/hr Insulin Aspart (Novolog) 0 unit SC Q6 [facility] PRN Reason: Protocol Last Admin: 10/26/17 18:15 Dose: Not Given Metoprolol Tartrate (Lopressor) 5 mg IVP Q6H [facility] Last Admin: 10/26/17 21:20 Dose: 5 mg Morphine Sulfate (Morphine) 2 mg IV Q4H PRN PRN Reason: Pain, MODERATE (4-7) Last Admin: 10/25/17 15:32 Dose: 2 mg Morphine Sulfate (Morphine) 4 mg IVP Q3H PRN PRN Reason: Pain, severe (8-10) Last Admin: 10/26/17 21:31 Dose: 4 mg Mupirocin (Bactroban 2% Nasal) 0.5 gm BROOK BID [facility] Last Admin: 10/26/17 17:01 Dose: 0.5 gm Pantoprazole Sodium (Protonix Inj) 40 mg IVP Q12H [facility] Last Admin: 10/26/17 17:00 Dose: 40 mg Phenytoin (Dilantin) 100 mg IVP Q8H [facility] Last Admin: 10/26/17 20:10 Dose: 100 mg - Labs Labs: 10/26/17 06:04 10/26/17 06:03 PT 12.8 SECONDS (9.7-12.2) H 10/24/17 06:22 INR 1.1 10/24/17 06:22 APTT 30 SECONDS (21-34) 10/24/17 06:22 - Constitutional Appears: No Acute Distress - Head Exam Head Exam: ATRAUMATIC, NORMAL INSPECTION, NORMOCEPHALIC - Eye Exam Eye Exam: EOMI, Normal appearance, PERRL Pupil Exam: NORMAL ACCOMODATION, PERRL - Respiratory Exam Respiratory Exam: Decreased Breath Sounds, Rales - Cardiovascular Exam Cardiovascular Exam: REGULAR RHYTHM, +S1, +S2. absent: Murmur - GI/Abdominal Exam GI & Abdominal Exam: Soft, Normal Bowel Sounds Assessment and Plan (1) GI bleed Status: Acute (2) Anemia Status: Acute (3) Toe gangrene Status: Acute (4) CAD (coronary artery disease) Status: Chronic
[2017-10-27] MEDS: Enalaprilat 2.5 MG/2 ML IV SCH ×4 (01:00→18:03)
[2017-10-27] MEDS: Potassium Chloride 20 MEQ in Dextrose 5%/0.45% NS 1,000 ML IV SCH (01:45)
[2017-10-27] MEDS: Piperacill/Tazo 3.375gm in Dex 3.375 GM/50 ML BAG IVPB SCH ×2 (04:00→11:05)
[2017-10-27] MEDS: Metoprolol 1 mg/ml Inj IVP SCH ×4 (04:10→20:14)
[2017-10-27] MEDS: Phenytoin 100 mg/2 ml Inj IVP SCH ×3 (04:40→19:45)
[2017-10-27] MEDS: Morphine 4 MG/ML VIAL IVP PRN ×4 (04:46→21:56)
[2017-10-27 06:20] LABS: BASO # 0.1 K/uL (0.0-0.2); EOS % 0.1 % (0.0-4.0); HEMOGLOBIN 8.6 g/dL (11.0-16.0); LYMPH # 0.8 K/uL (1.0-4.3); LYMPH % 7.3 % (20.0-40.0); MEAN CELL VOLUME 91.3 fL (81.0-99.0); MEAN CORPUSCULAR HEMOGLOBIN 29.8 pg (27.0-31.0); MEAN CORPUSCULAR HGB CONC 32.6 g/dL (33.0-37.0); MEAN PLATELET VOLUME 8.8 fL (7.2-11.7); MONO # 0.6 K/uL (0.0-0.8); MONO % 5.5 % (0.0-10.0); NEUT # 9.3 K/uL (1.8-7.0); NEUT % 86.1 % (50.0-75.0); PLATELET COUNT 228 K/uL (130-400); RBC 2.87 Mil/uL (3.80-5.20); RED CELL DISTRIBUTION WIDTH 17.3 % (11.5-14.5); WHITE BLOOD COUNT 10.8 K/uL (4.8-10.8)
[2017-10-27] MEDS: (Novolog) Insulin Aspart, Recombinant 100 u/ml 10 ml vial SC SCH ×4 (06:31→18:00)
[2017-10-27 08:37] LABS: ALB/GLOB RATIO 0.8 (1.0-2.1); ALBUMIN 2.6 g/dL (3.5-5.0); ALT/SGPT < 6 U/L (9-52); AST/SGOT 23 U/L (14-36); BLOOD UREA NITROGEN 9 mg/dL (7-17); CALCIUM 8.4 mg/dl (8.6-10.4); GFR AFRICAN-AMERICAN > 60; GFR NON-AFRICAN AMERICAN > 60
[2017-10-27] MEDS: Magnesium Sulfate 1 gm in D5W 1 GM/100 ML BAG IVPB SCH ×2 (08:44→09:45)
[2017-10-27 09:04] LABS: LYMPHOCYTE 7 % (20-40); MONOCYTE 8 % (0-10); NEUTROPHIL 85 % (50-75); PLATELET ESTIMATE NORMAL (NORMAL); TOTAL CELLS COUNTED 100
[2017-10-27 09:05] LABS: ANISOCYTOSIS SLIGHT; BURR CELLS SLIGHT; HYPOCHROMIC SLIGHT; POIKILOCYTOSIS SLIGHT
[2017-10-27 09:06] LABS: OVALOCYTES SLIGHT; TARGET CELLS SLIGHT
[2017-10-27 09:07] LABS: GIANT PLATELETS PRESENT
[2017-10-27] MEDS: Mupirocin 2% Ointment (NASAL) NAS SCH ×2 (09:30→18:00)
[2017-10-27] MEDS ORDERED: (Novolog) Insulin Aspart, Recombinant 100 u/ml 10 ml vial SC STA (09:46)
--- NOTE | 2017-10-27 10:12 | CP.PCM.PN ---
<Valentino Lopez - Last Filed: 10/27/17 10:08> Subjective - Date & Time of Evaluation Date of Evaluation: 10/27/17 Time of Evaluation: 07:00 - Subjective Subjective: PGY5 GI Fellow Progress Note Patient seen and examined bedside this morning. Still no BM per patient and not passing flatus. She is very hungry and eager to eat. Mild-moderate abdominal discomfort. No nausea, vomiting or overt GI blood loss since surgery. 12 system ROS performed and negative except where stated. Objective - Vital Signs/Intake and Output Vital Signs (last 24 hours): Temp Pulse Resp BP Pulse Ox 98.3 F 89 11 L 156/57 H 100 10/27/17 08:00 10/27/17 08:53 10/27/17 08:53 10/27/17 08:53 10/27/17 08:53 Intake and Output: 10/27/17 10/27/17 06:59 18:59 Intake Total 1300 200 Output Total 920 Balance 1300 -720 - Medications Medications: Current Medications Amlodipine Besylate (Norvasc) 10 mg PO DAILY [facility] Last Admin: 10/20/17 09:57 Dose: Not Given Enalaprilat (Vasotec) 1.25 mg IV Q6 [facility] Last Admin: 10/27/17 05:43 Dose: 1.25 mg Vancomycin/Sodium Chloride (Vancomycin 1 Gm/Ns 200 Ml) 1 gm in 200 mls @ 133 mls/hr IVPB Q24H [facility] PRN Reason: Protocol Stop: 10/30/17 18:01 Last Admin: 10/26/17 17:02 Dose: 133 mls/hr Piperacillin Sod/Tazobactam Sod (Zosyn 3.375 Gm Iv Premix) 3.375 gm in 50 mls @ 100 mls/hr IVPB Q6H [facility] Stop: 10/27/17 11:29 Last Admin: 10/27/17 04:00 Dose: 100 mls/hr Multivitamins/Vitamin C 10 ml/Insulin Human Regular 10 unit / Amino Acids 1, 010.1 mls @ 104 mls/hr IV .Q9H43M [facility] Stop: 10/28/17 03:42 Insulin Human Regular 10 unit/ (Amino Acids) 1,000.1 mls @ 104 mls/hr IV .Q9H37M [facility] Stop: 10/28/17 13:19 Insulin Human Regular 10 unit/ (Amino Acids) 1,000.1 mls @ 104 mls/hr IV .Q9H37M [facility] Stop: 10/28/17 17:59 Folic Acid 1 mg/ Sodium (Chloride) 100.2 mls @ 60 mls/hr IV DAILY [facility] Insulin Aspart (Novolog) 0 unit SC Q6 [facility] PRN Reason: Protocol Last Admin: 10/27/17 06:31 Dose: Not Given Insulin Aspart (Novolog) 8 unit SC STAT [facility] Stop: 10/27/17 09:47 Metoprolol Tartrate (Lopressor) 5 mg IVP Q6H [facility] Last Admin: 10/27/17 09:34 Dose: 5 mg Morphine Sulfate (Morphine) 2 mg IV Q4H PRN PRN Reason: Pain, MODERATE (4-7) Last Admin: 10/25/17 15:32 Dose: 2 mg Morphine Sulfate (Morphine) 4 mg IVP Q3H PRN PRN Reason: Pain, severe (8-10) Last Admin: 10/27/17 04:46 Dose: 4 mg Mupirocin (Bactroban 2% Nasal) 0.5 gm BROOK BID [facility] Last Admin: 10/26/17 17:01 Dose: 0.5 gm Pantoprazole Sodium (Protonix Inj) 40 mg IVP Q12H [facility] Last Admin: 10/27/17 05:43 Dose: 40 mg Phenytoin (Dilantin) 100 mg IVP Q8H [facility] Last Admin: 10/27/17 04:40 Dose: 100 mg - Labs Labs: 10/27/17 06:11 10/27/17 08:06 PT 12.8 SECONDS (9.7-12.2) H 10/24/17 06:22 INR 1.1 10/24/17 06:22 APTT 30 SECONDS (21-34) 10/24/17 06:22 - Constitutional Appears: No Acute Distress, Chronically Ill - Eye Exam Eye Exam: EOMI, PERRL - ENT Exam ENT Exam: Mucous Membranes Moist Additional comments: NGT in place, clamped - Respiratory Exam Respiratory Exam: Clear to Ausculation Bilateral. absent: Rales, Rhonchi, Wheezes - Cardiovascular Exam Cardiovascular Exam: Tachycardia, REGULAR RHYTHM, +S1, +S2 - GI/Abdominal Exam GI & Abdominal Exam: Soft, Tenderness (around surgical site), Normal Bowel Sounds. absent: Distended, Firm, Guarding, Rigid, Organomegaly Additional comments: midline surgical wound - Extremities Exam Extremities Exam: absent: Pedal Edema Additional comments: left great toe gangrene - Neurological Exam Neurological Exam: Alert, Awake, Oriented x3 - Psychiatric Exam Psychiatric exam: Depressed - Skin Skin Exam: Dry, Warm Assessment and Plan - Assessment and Plan (Free Text) Assessment: Patient is a 57yo female with history of peripheral vascular disease and concern for left great toe gangrene, CAD, anemia who presented to the ED referred by her cupola charger for concern of osteomyelitis. Our service is consulted for anemia. -Ongoing anemia with component of acute blood loss anemia -S/P small bowel resection for above -H/O mitral/aortic mechanical valve replacement previously on anticoagulation -Left 1st toe gangrene -CAD -PVD Plan: +Bowel sounds, however without flatus or BM since procedure per patient; check abdominal flat plate -HGB down again today to 8.6 without overt blood loss -Suggest consideration of other factors such as hemolysis and recommend hematology consultation in the face of ongoing anemia requiring frequent transfusion -Consider work-up for von Willebrand disease/syndrome or Heyde syndrome given mechanical valves - HGB did improve with DDAVP -Protonix as ordered -Post-op care per surgical team -Will follow <Srikanth Robison - Last Filed: 10/27/17 11:35> Objective - Vital Signs/Intake and Output Vital Signs (last 24 hours): Temp Pulse Resp BP Pulse Ox 98.3 F 89 11 L 156/57 H 100 10/27/17 08:00 10/27/17 08:53 10/27/17 08:53 10/27/17 08:53 10/27/17 08:53 Intake and Output: 10/27/17 10/27/17 06:59 18:59 Intake Total 1300 200 Output Total 920 Balance 1300 -720 - Medications Medications: Current Medications Amlodipine Besylate (Norvasc) 10 mg PO DAILY [facility] Last Admin: 10/20/17 09:57 Dose: Not Given Enalaprilat (Vasotec) 1.25 mg IV Q6 [facility] Last Admin: 10/27/17 05:43 Dose: 1.25 mg Vancomycin/Sodium Chloride (Vancomycin 1 Gm/Ns 200 Ml) 1 gm in 200 mls @ 133 mls/hr IVPB Q24H [facility] PRN Reason: Protocol Stop: 10/30/17 18:01 Last Admin: 10/26/17 17:02 Dose: 133 mls/hr Multivitamins/Vitamin C 10 ml/Insulin Human Regular 10 unit / Amino Acids 1, 010.1 mls @ 104 mls/hr IV .Q9H43M [facility] Stop: 10/28/17 03:42 Insulin Human Regular 10 unit/ (Amino Acids) 1,000.1 mls @ 104 mls/hr IV .Q9H37M [facility] Stop: 10/28/17 13:19 Insulin Human Regular 10 unit/ (Amino Acids) 1,000.1 mls @ 104 mls/hr IV .Q9H37M [facility] Stop: 10/28/17 17:59 Folic Acid 1 mg/ Sodium (Chloride) 100.2 mls @ 60 mls/hr IV DAILY [facility] Insulin Aspart (Novolog) 0 unit SC Q6 [facility] PRN Reason: Protocol Last Admin: 10/27/17 06:31 Dose: Not Given Metoprolol Tartrate (Lopressor) 5 mg IVP Q6H [facility] Last Admin: 10/27/17 09:34 Dose: 5 mg Morphine Sulfate (Morphine) 2 mg IV Q4H PRN PRN Reason: Pain, MODERATE (4-7) Last Admin: 10/25/17 15:32 Dose: 2 mg Morphine Sulfate (Morphine) 4 mg IVP Q3H PRN PRN Reason: Pain, severe (8-10) Last Admin: 10/27/17 10:30 Dose: 4 mg Mupirocin (Bactroban 2% Nasal) 0.5 gm BROOK BID [facility] Last Admin: 10/26/17 17:01 Dose: 0.5 gm Pantoprazole Sodium (Protonix Inj) 40 mg IVP Q12H [facility] Last Admin: 10/27/17 05:43 Dose: 40 mg Phenytoin (Dilantin) 100 mg IVP Q8H [facility] Last Admin: 10/27/17 04:40 Dose: 100 mg - Labs Labs: 10/27/17 06:11 10/27/17 08:06 PT 12.8 SECONDS (9.7-12.2) H 10/24/17 06:22 INR 1.1 10/24/17 06:22 APTT 30 SECONDS (21-34) 10/24/17 06:22 Attending/Attestation - Attestation I have personally seen and examined this patient.: Yes I have fully participated in the care of the patient.: Yes I have reviewed all pertinent clinical information, including history, physical exam and plan: Yes Notes (Text): 10/27/17 11:33 I have seen and examined patient with GI fellow. No acute events overnight. She complains of abdominal pain at surgical site but otherwise denies nausea, vomiting, fever/chills. No bowel movements or flatus. H/H drop noted, though no overt blood loss, continue to monitor and recommend hematology consult. Continue with PPI therapy. Follow up surgical recommendations. Discussed with the continuous still operator in detail
--- NOTE | 2017-10-27 11:09 | RAD ---
HISTORY: abdominal pain R/O ileus COMPARISON: CT angiography of the abdomen and pelvis dated 10/23/2017. FINDINGS: BOWEL: Enteric tube with tip in the stomach. Nonspecific bowel gas pattern without distention. BONES: Degenerative changes. OTHER FINDINGS: Large lucency under the left hemidiaphragm. Calcified uterine fibroids. IMPRESSION: Large lucency under left hemidiaphragm raises the possibility of free air, more than would be expected 3 days post-operatively. Direct/decubitus views or, alternatively, CT scan of the abdomen pelvis can be obtained for further evaluation. Findings conveyed to Dr. Zavala by Dr. Vora at 11:00 am on 10/27/2017.
--- NOTE | 2017-10-27 11:20 | CP.PCM.PN ---
Subjective - Date & Time of Evaluation Date of Evaluation: 10/27/17 Time of Evaluation: 11:14 - Subjective Subjective: PGY-1 surgery progress note for Dr Cota. No acute events noted overnight. Patient remains NPO, no flatus, no evidence of bleeding. Mild abdominal discomfort. Denies fever, chills, chest pain, vomiting. Objective - Vital Signs/Intake and Output Vital Signs (last 24 hours): Temp Pulse Resp BP Pulse Ox 98.3 F 89 11 L 156/57 H 100 10/27/17 08:00 10/27/17 08:53 10/27/17 08:53 10/27/17 08:53 10/27/17 08:53 Intake and Output: 10/27/17 10/27/17 06:59 18:59 Intake Total 1300 200 Output Total 920 Balance 1300 -720 - Medications Medications: Current Medications Amlodipine Besylate (Norvasc) 10 mg PO DAILY [facility] Last Admin: 10/20/17 09:57 Dose: Not Given Enalaprilat (Vasotec) 1.25 mg IV Q6 [facility] Last Admin: 10/27/17 05:43 Dose: 1.25 mg Vancomycin/Sodium Chloride (Vancomycin 1 Gm/Ns 200 Ml) 1 gm in 200 mls @ 133 mls/hr IVPB Q24H [facility] PRN Reason: Protocol Stop: 10/30/17 18:01 Last Admin: 10/26/17 17:02 Dose: 133 mls/hr Piperacillin Sod/Tazobactam Sod (Zosyn 3.375 Gm Iv Premix) 3.375 gm in 50 mls @ 100 mls/hr IVPB Q6H [facility] Stop: 10/27/17 11:29 Last Admin: 10/27/17 11:05 Dose: 100 mls/hr Multivitamins/Vitamin C 10 ml/Insulin Human Regular 10 unit / Amino Acids 1, 010.1 mls @ 104 mls/hr IV .Q9H43M [facility] Stop: 10/28/17 03:42 Insulin Human Regular 10 unit/ (Amino Acids) 1,000.1 mls @ 104 mls/hr IV .Q9H37M [facility] Stop: 10/28/17 13:19 Insulin Human Regular 10 unit/ (Amino Acids) 1,000.1 mls @ 104 mls/hr IV .Q9H37M [facility] Stop: 10/28/17 17:59 Folic Acid 1 mg/ Sodium (Chloride) 100.2 mls @ 60 mls/hr IV DAILY [facility] Insulin Aspart (Novolog) 0 unit SC Q6 [facility] PRN Reason: Protocol Last Admin: 10/27/17 06:31 Dose: Not Given Metoprolol Tartrate (Lopressor) 5 mg IVP Q6H [facility] Last Admin: 10/27/17 09:34 Dose: 5 mg Morphine Sulfate (Morphine) 2 mg IV Q4H PRN PRN Reason: Pain, MODERATE (4-7) Last Admin: 10/25/17 15:32 Dose: 2 mg Morphine Sulfate (Morphine) 4 mg IVP Q3H PRN PRN Reason: Pain, severe (8-10) Last Admin: 10/27/17 10:30 Dose: 4 mg Mupirocin (Bactroban 2% Nasal) 0.5 gm BROOK BID [facility] Last Admin: 10/26/17 17:01 Dose: 0.5 gm Pantoprazole Sodium (Protonix Inj) 40 mg IVP Q12H [facility] Last Admin: 10/27/17 05:43 Dose: 40 mg Phenytoin (Dilantin) 100 mg IVP Q8H [facility] Last Admin: 10/27/17 04:40 Dose: 100 mg - Labs Labs: 10/27/17 06:11 10/27/17 08:06 PT 12.8 SECONDS (9.7-12.2) H 10/24/17 06:22 INR 1.1 10/24/17 06:22 APTT 30 SECONDS (21-34) 10/24/17 06:22 - Additional Findings Additional findings: - Constitutional Appears: No Acute Distress, Chronically Ill - Eye Exam Eye Exam: EOMI, PERRL - ENT Exam ENT Exam: Mucous Membranes Moist Additional comments: NGT in place, clamped - Respiratory Exam Respiratory Exam: Clear to Ausculation Bilateral. absent: Rales, Rhonchi, Wheezes - Cardiovascular Exam Cardiovascular Exam: Tachycardia, REGULAR RHYTHM, +S1, +S2 - GI/Abdominal Exam GI & Abdominal Exam: Soft, Tenderness (around surgical site), Normal Bowel Sounds. absent: Distended, Firm, Guarding, Rigid, Organomegaly Additional comments: midline surgical wound - Extremities Exam Extremities Exam: absent: Pedal Edema Additional comments: left great toe gangrene - Neurological Exam Neurological Exam: Alert, Awake, Oriented x3 - Psychiatric Exam Psychiatric exam: Depressed - Skin Skin Exam: Dry, Warm Assessment and Plan - Assessment and Plan (Free Text) Assessment: POD #3 s/p Ex-lap w/SB resection & anastomosis x 3 Plan: Discontinued NGT and started clear liquid diet Cont pain control OOBTC Encourage IS use Monitor for bleeding Monitor for bowel function Further mgmt as per primary and ICU teams Will MARTA attending
--- NOTE | 2017-10-27 11:32 | CP.PCM.PN ---
Subjective - Date & Time of Evaluation Date of Evaluation: 10/27/17 Time of Evaluation: 11:15 - Subjective Subjective: Podiatry Progress Note- Dr. 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 Pt seen resting in bed at time of visit, appears lethargic today. She is s/p small bowel resection with anastamosis with Dr. Cota. She denies any lower extremity pain today. Denies f/n/v/c/sob/or cp. No other pedal complaints. Objective - Vital Signs/Intake and Output Vital Signs (last 24 hours): Temp Pulse Resp BP Pulse Ox 98.3 F 89 11 L 156/57 H 100 10/27/17 08:00 10/27/17 08:53 10/27/17 08:53 10/27/17 08:53 10/27/17 08:53 Intake and Output: 10/27/17 10/27/17 06:59 18:59 Intake Total 1300 200 Output Total 920 Balance 1300 -720 - Medications Medications: Current Medications Amlodipine Besylate (Norvasc) 10 mg PO DAILY [facility] Last Admin: 10/20/17 09:57 Dose: Not Given Enalaprilat (Vasotec) 1.25 mg IV Q6 [facility] Last Admin: 10/27/17 05:43 Dose: 1.25 mg Vancomycin/Sodium Chloride (Vancomycin 1 Gm/Ns 200 Ml) 1 gm in 200 mls @ 133 mls/hr IVPB Q24H [facility] PRN Reason: Protocol Stop: 10/30/17 18:01 Last Admin: 10/26/17 17:02 Dose: 133 mls/hr Multivitamins/Vitamin C 10 ml/Insulin Human Regular 10 unit / Amino Acids 1, 010.1 mls @ 104 mls/hr IV .Q9H43M [facility] Stop: 10/28/17 03:42 Insulin Human Regular 10 unit/ (Amino Acids) 1,000.1 mls @ 104 mls/hr IV .Q9H37M [facility] Stop: 10/28/17 13:19 Insulin Human Regular 10 unit/ (Amino Acids) 1,000.1 mls @ 104 mls/hr IV .Q9H37M [facility] Stop: 10/28/17 17:59 Folic Acid 1 mg/ Sodium (Chloride) 100.2 mls @ 60 mls/hr IV DAILY [facility] Insulin Aspart (Novolog) 0 unit SC Q6 [facility] PRN Reason: Protocol Last Admin: 10/27/17 06:31 Dose: Not Given Metoprolol Tartrate (Lopressor) 5 mg IVP Q6H [facility] Last Admin: 10/27/17 09:34 Dose: 5 mg Morphine Sulfate (Morphine) 2 mg IV Q4H PRN PRN Reason: Pain, MODERATE (4-7) Last Admin: 10/25/17 15:32 Dose: 2 mg Morphine Sulfate (Morphine) 4 mg IVP Q3H PRN PRN Reason: Pain, severe (8-10) Last Admin: 10/27/17 10:30 Dose: 4 mg Mupirocin (Bactroban 2% Nasal) 0.5 gm BROOK BID [facility] [place] Last Admin: 10/26/17 17:01 Dose: 0.5 gm Pantoprazole Sodium (Protonix Inj) 40 mg IVP Q12H [facility] Last Admin: 10/27/17 05:43 Dose: 40 mg Phenytoin (Dilantin) 100 mg IVP Q8H [facility] Last Admin: 10/27/17 04:40 Dose: 100 mg - Labs Labs: 10/27/17 06:11 10/27/17 08:06 PT 12.8 SECONDS (9.7-12.2) H 10/24/17 06:22 INR 1.1 10/24/17 06:22 APTT 30 SECONDS (21-34) 10/24/17 06:22 - Constitutional Appears: Non-toxic, No Acute Distress - Extremities Exam Extremities Exam: absent: Calf Tenderness Additional comments: LLE focused: dressing to left foot appears c,d,i Vasc: DP and PT pulses are nonpalpable, skin temp runs cool to cool (proximal to distal) lower extremities cool to cool Ortho: Mild pain with palpation to the left hallux and surrounding periwound, MM is 4/5 in all four compartments consistent with age Neuro: gross sensation intact bilaterally, protective sensation diminished Derm: dry gangrene noted to the distal left hallux to the level of the IPJ with nail plate absent from nail bed, wound base is 100% necrotic and gangrenous, distal mummification with demarcating process noted, no active purulent drainage noted or expressed, no malodor, no appreciable erythema or streaking, no probe to bone, no tunneling, no undermining. No other grossly ischemic changes appreciated to b/l feet - Neurological Exam Neurological Exam: Alert, Awake - Psychiatric Exam Psychiatric exam: Normal Affect, Normal Mood Assessment and Plan - Assessment and Plan (Free Text) Assessment: 57 y.o female w/ gangrenous left 1st hallux with underlying OM Plan: Patient S&E at bedside d/w Dr. Travis Bhat, DPM afebrile, no leukocytosis CT angio: -Right- short segment moderate stenosis prox SFA w/ long segment severe stenosis of the mid/distal SFA stent. Mild tandem stenosis of right popliteal. Markedly limited evaluation of below knee arteries due to heavy arterial wall calcification -Left- short segment moderate stenosis of prox SFA. Patent indwelling mid/ distal SFA stent. Mild tandem stenoses of the superficial femoral and popliteal artery. Markedly limited eval of anterior tibial and peroneal arteries due to heavy arterial wall calcification -2 days s/p small bowel resection and anastamosis -conservative care for toe at this time, betadine + DSD applied -will follow
--- NOTE | 2017-10-27 12:32 | CP.CCUPN ---
<Nicolas Zavala - Last Filed: 10/27/17 15:20> CCU Subjective - Physician Review Subjective (Free Text): 10/23/17 08:14 Patient seen and examined at bedside. Complaining of fatigue. NPO for repeat EGD and colonoscopy today. 10/24/17 10:23 Patient seen and examined. Patient reports feeling a bit better than yesterday. She is anxiously anticipating OR later today. 10/25/17 12:50 Patient seen and examined. She reports that she is feeling "so-so." Patient is complaining of abdominal pain in the region of her operation. 10/26/17 11:38 Patient seen and examined. Patient is requesting advancement of diet. However, she has not yet passed flatus or had a bowel movement. Until she does, surgery cannot clear her for advancement of diet. 10/27/17 12:20 Patient seen and examined. Patient reports that her pain is controlled at this time. She is not in any distress but is wondering when her diet can be advanced. CCU Objective - Vital Signs / Intake & Output Vital Signs (Last 4 hours): Vital Signs Pulse Resp BP Pulse Ox 10/27/17 08:53 89 11 L 156/57 H 100 Intake and Output (Last 8hrs): Intake & Output 10/26/17 10/27/17 10/27/17 22:59 06:59 14:59 Intake Total 833 850 200 Output Total 800 920 Balance 33 850 -720 Weight 216 lb 8 oz Intake: Intake, IV Amount 833 850 200 Purple port Right PICC 400 800 200 line Red Port Right Picc line 433 50 Output: Urine 800 920 Urine, Voided 800 920 Other: # Voids Urine, Voided 1 1 # Bowel Movements 1 - Physical Exam Head: Positive for: Atraumatic, Normocephalic Pupils: Positive for: PERRL Extroacular Muscles: Positive for: EOMI Conjunctiva: Positive for: Normal Mouth: Positive for: Moist Mucous Membranes Nose (External): Positive for: Other (NGT in place) Neck: Positive for: Normal Range of Motion Respiratory/Chest: Positive for: Clear to Auscultation, Good Air Exchange. Negative for: Respiratory Distress, Accessory Muscle Use Cardiovascular: Positive for: Regular Rate and Rhythm, Normal S1, S2, Other ( systolic murmur). Negative for: Tachycardic Abdomen: Positive for: Normal Bowel Sounds. Negative for: Tenderness, Distention Upper Extremity: Positive for: Normal Inspection Lower Extremity: Positive for: Other (Right toe dressing intact) Neurological: Positive for: GCS=15 Skin: Positive for: Warm, Dry, Normal Color Psychiatric: Positive for: Alert, Oriented x 3 - Medications Active Medications: Active Medications Generic Name Dose Route Start Last Admin Trade Name Freq PRN Reason Stop Dose Admin Amlodipine Besylate 10 mg 10/15/17 10:00 10/20/17 09:57 Norvasc PO Not Given DAILY NYDIA Enalaprilat 1.25 mg 10/27/17 00:00 10/27/17 05:43 Vasotec IV 1.25 mg Q6 NYDIA Administration Vancomycin/Sodium Chloride 1 gm in 200 mls @ 133 mls/hr 10/25/17 18:00 17:02 Vancomycin 1 Gm/Ns 200 Ml IVPB 10/30/17 18:01 133 mls/hr Q24H NYDIA Administration Protocol Multivitamins/Vitamin C 10 ml/ 1,010.1 mls @ 104 mls/hr 10/27/17 18:00 Insulin Human Regular 10 unit IV 10/28/17 03:42 / Amino Acids .Q9H43M NYDIA Insulin Human Regular 10 unit/ 1,000.1 mls @ 104 mls/hr 10/28/17 03:43 Amino Acids IV 10/28/17 13:19 .Q9H37M ONE Insulin Human Regular 10 unit/ 1,000.1 mls @ 104 mls/hr 10/28/17 13:20 Amino Acids IV 10/28/17 17:59 .Q9H37M NYDIA Folic Acid 1 mg/ Sodium 100.2 mls @ 60 mls/hr 10/27/17 10:00 10/27/17 11:50 Chloride IV 60 mls/hr DAILY NYDIA Administration Insulin Aspart 0 unit 10/26/17 18:00 10/27/17 06:31 Novolog SC Not Given Q6 [facility] Protocol Metoprolol Tartrate 5 mg 10/26/17 21:15 10/27/17 09:34 Lopressor IVP 5 mg Q6H NYDIA Administration Morphine Sulfate 2 mg 10/24/17 15:45 10/25/17 15:32 Morphine IV 2 mg Q4H PRN Administration Pain, MODERATE (4-7) Morphine Sulfate 4 mg 10/26/17 11:15 10/27/17 10:30 Morphine IVP 4 mg Q3H PRN Administration Pain, severe (8-10) Mupirocin 0.5 gm 10/21/17 10:00 10/26/17 17:01 Bactroban 2% Nasal BROOK 0.5 gm BID NYDIA Administration Pantoprazole Sodium 40 mg 10/25/17 18:00 10/27/17 05:43 Protonix Inj IVP 40 mg Q12H NYDIA Administration Phenytoin 100 mg 10/18/17 20:45 10/27/17 04:40 Dilantin IVP 100 mg Q8H NYDIA Administration - Patient Studies Lab Studies: Lab Studies 10/27/17 10/27/17 10/27/17 Range/Units 11:25 08:06 06:11 WBC (4.8-10.8) K/uL RBC (3.80-5.20) Mil/uL Hgb (11.0-16.0) g/dL Hct (34.0-47.0) % MCV (81.0-99.0) fL MCH (27.0-31.0) pg MCHC (33.0-37.0) g/dL RDW (11.5-14.5) % Plt Count (130-400) K/uL MPV (7.2-11.7) fL Neut % (Auto) (50.0-75.0) % Lymph % (Auto) (20.0-40.0) % [place] % (Auto) (0.0-10.0) % Eos % (Auto) (0.0-4.0) % Baso % (Auto) (0.0-2.0) % Neut # (Auto) (1.8-7.0) K/uL Lymph # (Auto) (1.0-4.3) K/uL [place] # (Auto) (0.0-0.8) K/uL Eos # (Auto) (0.0-0.7) K/uL Baso # (Auto) (0.0-0.2) K/uL Neutrophils % (Manual) (50-75) % Lymphocytes % (Manual) (20-40) % Monocytes % (Manual) (0-10) % Platelet Estimate (NORMAL) Giant Platelets Hypochromasia (manual) Poikilocytosis (manual Anisocytosis (manual) Target Cells Ovalocytes [place] Cells Sodium 138 Cancelled Potassium 4.3 Cancelled Chloride 106 Cancelled Carbon Dioxide 20 L Cancelled Anion Gap 17 Cancelled BUN 9 Cancelled Creatinine 0.9 0.7 (0.7-1.2) mg/dL Est GFR ( Amer) > 60 Cancelled Est GFR (Non-Af Amer) > 60 Cancelled POC Glucose (mg/dL) 260 H (65-110) mg/dL Random Glucose 359 H Cancelled Calcium 8.4 L Cancelled Phosphorus 2.8 (2.5-4.5) mg/dL Magnesium 1.3 L (1.6-2.3) mg/dL Total Bilirubin 0.5 Cancelled AST 23 Cancelled ALT < 6 L D Cancelled Alkaline Phosphatase 95 Cancelled Total Protein 5.8 L Cancelled Albumin 2.6 L Cancelled Globulin 3.2 Cancelled Albumin/Globulin Ratio 0.8 L Cancelled 10/27/17 10/27/17 10/26/17 Range/Units 06:11 05:46 23:36 WBC 10.8 (4.8-10.8) K/uL RBC 2.87 L (3.80-5.20) Mil/uL Hgb 8.6 L (11.0-16.0) g/dL Hct 26.2 L (34.0-47.0) % MCV 91.3 D (81.0-99.0) fL MCH 29.8 (27.0-31.0) pg MCHC 32.6 L (33.0-37.0) g/dL RDW 17.3 H (11.5-14.5) % Plt Count 228 (130-400) K/uL MPV 8.8 (7.2-11.7) fL Neut % (Auto) 86.1 H (50.0-75.0) % Lymph % (Auto) 7.3 L (20.0-40.0) % [place] % (Auto) 5.5 (0.0-10.0) % Eos % (Auto) 0.1 (0.0-4.0) % Baso % (Auto) 1.0 (0.0-2.0) % Neut # (Auto) 9.3 H (1.8-7.0) K/uL Lymph # (Auto) 0.8 L (1.0-4.3) K/uL [place] # (Auto) 0.6 (0.0-0.8) K/uL Eos # (Auto) 0.0 (0.0-0.7) K/uL Baso # (Auto) 0.1 (0.0-0.2) K/uL Neutrophils % (Manual) 85 H (50-75) % Lymphocytes % (Manual) 7 L (20-40) % Monocytes % (Manual) 8 (0-10) % Platelet Estimate Normal (NORMAL) Giant Platelets Present Hypochromasia (manual) Slight Poikilocytosis (manual Slight Anisocytosis (manual) Slight Target Cells Slight Ovalocytes Slight Addi Cells Slight Sodium Potassium Chloride Carbon Dioxide Anion Gap BUN Creatinine (0.7-1.2) mg/dL Est GFR ( Amer) Est GFR (Non-Af Amer) POC Glucose (mg/dL) 355 H 382 H (65-110) mg/dL Random Glucose Calcium Phosphorus (2.5-4.5) mg/dL Magnesium (1.6-2.3) mg/dL Total Bilirubin AST ALT Alkaline Phosphatase Total Protein Albumin Globulin Albumin/Globulin Ratio 10/26/17 Range/Units 17:39 WBC (4.8-10.8) K/uL RBC (3.80-5.20) Mil/uL Hgb (11.0-16.0) g/dL Hct (34.0-47.0) % MCV (81.0-99.0) fL MCH (27.0-31.0) pg MCHC (33.0-37.0) g/dL RDW (11.5-14.5) % Plt Count (130-400) K/uL MPV (7.2-11.7) fL Neut % (Auto) (50.0-75.0) % Lymph % (Auto) (20.0-40.0) % [place] % (Auto) (0.0-10.0) % Eos % (Auto) (0.0-4.0) % Baso % (Auto) (0.0-2.0) % Neut # (Auto) (1.8-7.0) K/uL Lymph # (Auto) (1.0-4.3) K/uL [place] # (Auto) (0.0-0.8) K/uL Eos # (Auto) (0.0-0.7) K/uL Baso # (Auto) (0.0-0.2) K/uL Neutrophils % (Manual) (50-75) % Lymphocytes % (Manual) (20-40) % Monocytes % (Manual) (0-10) % Platelet Estimate (NORMAL) Giant Platelets Hypochromasia (manual) Poikilocytosis (manual Anisocytosis (manual) Target Cells Ovalocytes [place] Cells Sodium Potassium Chloride Carbon Dioxide Anion Gap BUN Creatinine (0.7-1.2) mg/dL Est GFR ( Amer) Est GFR (Non-Af Amer) POC Glucose (mg/dL) 293 H (65-110) mg/dL Random Glucose Calcium Phosphorus (2.5-4.5) mg/dL Magnesium (1.6-2.3) mg/dL Total Bilirubin AST ALT Alkaline Phosphatase Total Protein Albumin Globulin Albumin/Globulin Ratio Laboratory Results - last 24 hr 10/26/17 10/26/17 10/27/17 17:39 23:36 05:46 WBC RBC Hgb Hct MCV MCH MCHC RDW Plt Count MPV Neut % (Auto) Lymph % (Auto) [place] % (Auto) Eos % (Auto) Baso % (Auto) Neut # (Auto) Lymph # (Auto) [place] # (Auto) Eos # (Auto) Baso # (Auto) Neutrophils % (Manual) Lymphocytes % (Manual) Monocytes % (Manual) Platelet Estimate Giant Platelets Hypochromasia (manual) Poikilocytosis (manual Anisocytosis (manual) Target Cells Ovalocytes [place] Cells Sodium Potassium Chloride Carbon Dioxide Anion Gap BUN Creatinine Est GFR ( Amer) Est GFR (Non-Af Amer) POC Glucose (mg/dL) 293 H 382 H 355 H Random Glucose Calcium Phosphorus Magnesium Total Bilirubin AST ALT Alkaline Phosphatase Total Protein Albumin Globulin Albumin/Globulin Ratio 10/27/17 10/27/17 10/27/17 06:11 06:11 08:06 WBC 10.8 RBC 2.87 L Hgb 8.6 L Hct 26.2 L MCV 91.3 D MCH 29.8 MCHC 32.6 L RDW 17.3 H Plt Count 228 MPV 8.8 Neut % (Auto) 86.1 H Lymph % (Auto) 7.3 L [place] % (Auto) 5.5 Eos % (Auto) 0.1 Baso % (Auto) 1.0 Neut # (Auto) 9.3 H Lymph # (Auto) 0.8 L [place] # (Auto) 0.6 Eos # (Auto) 0.0 Baso # (Auto) 0.1 Neutrophils % (Manual) 85 H Lymphocytes % (Manual) 7 L Monocytes % (Manual) 8 Platelet Estimate Normal Giant Platelets Present Hypochromasia (manual) Slight Poikilocytosis (manual Slight Anisocytosis (manual) Slight Target Cells Slight Ovalocytes Slight Addi Cells Slight Sodium Cancelled 138 Potassium Cancelled 4.3 Chloride Cancelled 106 Carbon Dioxide Cancelled 20 L Anion Gap Cancelled 17 BUN Cancelled 9 Creatinine 0.7 0.9 Est GFR ( Amer) Cancelled > 60 Est GFR (Non-Af Amer) Cancelled > 60 POC Glucose (mg/dL) Random Glucose Cancelled 359 H Calcium Cancelled 8.4 L Phosphorus 2.8 Magnesium 1.3 L Total Bilirubin Cancelled 0.5 AST Cancelled 23 ALT Cancelled < 6 L D Alkaline Phosphatase Cancelled 95 Total Protein Cancelled 5.8 L Albumin Cancelled 2.6 L Globulin Cancelled 3.2 Albumin/Globulin Ratio Cancelled 0.8 L 10/27/17 11:25 WBC RBC Hgb Hct MCV MCH MCHC RDW Plt Count MPV Neut % (Auto) Lymph % (Auto) [place] % (Auto) Eos % (Auto) Baso % (Auto) Neut # (Auto) Lymph # (Auto) [place] # (Auto) Eos # (Auto) Baso # (Auto) Neutrophils % (Manual) Lymphocytes % (Manual) Monocytes % (Manual) Platelet Estimate Giant Platelets Hypochromasia (manual) Poikilocytosis (manual Anisocytosis (manual) Target Cells Ovalocytes Addi Cells Sodium Potassium Chloride Carbon Dioxide Anion Gap BUN Creatinine Est GFR ( Amer) Est GFR (Non-Af Amer) POC Glucose (mg/dL) 260 H Random Glucose Calcium Phosphorus Magnesium Total Bilirubin AST ALT Alkaline Phosphatase Total Protein Albumin Globulin Albumin/Globulin Ratio Fingerstick Blood Sugar Results: 359 Critical Care Progress Note - Nutrition Nutrition: Nutrition Category Date Time Status Liquid Diet [DIET] Diets 10/27/17 Breakfast Active Assessment/Plan - Assessment and Plan (Free Text) Assessment: Patient is a 57 year old female with past medical history of Diabetes, Mechanical aortic/mitral valve, chronic smoker, seizure disorder, PVD presented to the hospital initially for left toe infection. Was started on heparin drip. While on the floor patient started having bloody bowel movements. All anticoagulation on hold. Went for EGD prior which showed non-bleeding gastric ulcers and duodenitis. Transferred to the ICU for further monitoring. On 10/24/17 , patient underwent exploratory laparotomy where a questionable lesion proximal to the ligament of Trietz was resected as well as the distal small bowel in an effort to stop the patient's GI bleed. The regions were then anastomosed. She is POD #3. CT Angiogram of abdomen/pelvis to assess for splenic infarct/hemorrhage as source of bleeding. Neuro AAOx3 Seizure disorder on Dilantin 100 mg IV Q8 Cardio Monitor BP History of mitral and aortic mechanical valves, currently holding anticoagulation due to significant GI bleed Lopressor 5 mg IV Q6H with holding parameters Vasotec 1.25 mg IV Q6H with holding parameters Pulmonary saturating well on room air GI Protonix 40 mg IV Q12H Prior EGD showed multiple non-bleeding gastric ulcers and duodenitis Prior colonoscopy had inadequate preparation but did show much melena/coffee ground material throughout the colon Repeat EGD up to the jejunum negative However, repeat colonoscopy showed fresh pooling of blood from the region of the ileocecal valve indicating likely small bowel bleed Surgery advanced to clear liquid diet f/u CT angiogram of abdomen/pelvis to assess for splenic hemorrhage ID Left foot wound grew MRSA Vancomycin 1 gm Q24H (Day 14) Zosyn 3.375 gm Q6H for 48 hours to end today Contact precaution Endocrine Novolog sliding scale T6X--owrd dose Accuchecks Q6H due to PPN Heme/Onc Patient has received 13 units pRBCs in total on this admission Hematology consult ordered, work up in progress Continue to monitor GI/DVT Prophylaxis VTE ppx contraindicated due to GI bleed Protonix 40 mg IV Q12H Disposition: Follow up hematology work up and CTA to assess for spleen as source of further bleeding. Discussed with Dr. Clark <Javon Clark - Last Filed: 10/27/17 16:07> CCU Objective - Vital Signs / Intake & Output Intake and Output (Last 8hrs): Intake & Output 10/27/17 10/27/17 10/27/17 06:59 14:59 22:59 Intake Total 850 560 Output Total 920 Balance 850 -360 Weight 216 lb 8 oz Intake: Intake, IV Amount 850 400 Purple port Right PICC 800 400 line Red Port Right Picc line 50 Oral 160 Output: Urine 920 Urine, Voided 920 Other: # Voids Urine, Voided 1 - Medications Active Medications: Active Medications Generic Name Dose Route Start Last Admin Trade Name Freq PRN Reason Stop Dose Admin Amlodipine Besylate 10 mg 10/15/17 10:00 10/20/17 09:57 Norvasc PO Not Given DAILY NYDIA Enalaprilat 1.25 mg 10/27/17 12:26 Vasotec IV Q6 NYDIA Vancomycin/Sodium Chloride 1 gm in 200 mls @ 133 mls/hr 10/25/17 18:00 17:02 Vancomycin 1 Gm/Ns 200 Ml IVPB 10/30/17 18:01 133 mls/hr Q24H NYDIA Administration Protocol Multivitamins/Vitamin C 10 ml/ 1,010.1 mls @ 104 mls/hr 10/27/17 18:00 Insulin Human Regular 10 unit IV 10/28/17 03:42 / Amino Acids .Q9H43M NYDIA Insulin Human Regular 10 unit/ 1,000.1 mls @ 104 mls/hr 10/28/17 03:43 Amino Acids IV 10/28/17 13:19 .Q9H37M ONE Insulin Human Regular 10 unit/ 1,000.1 mls @ 104 mls/hr 10/28/17 13:20 Amino Acids IV 10/28/17 17:59 .Q9H37M NYDIA Folic Acid 1 mg/ Sodium 100.2 mls @ 60 mls/hr 10/27/17 10:00 10/27/17 11:50 Chloride IV 60 mls/hr DAILY NYDIA Administration Insulin Aspart 0 unit 10/26/17 18:00 10/27/17 12:27 Novolog SC 6 unit Q6 NYDIA Administration Protocol Metoprolol Tartrate 5 mg 10/26/17 21:15 10/27/17 15:32 Lopressor IVP 5 mg Q6H NYDIA Administration Morphine Sulfate 2 mg 10/24/17 15:45 10/25/17 15:32 Morphine IV 2 mg Q4H PRN Administration Pain, MODERATE (4-7) Morphine Sulfate 4 mg 10/26/17 11:15 10/27/17 10:30 Morphine IVP 4 mg Q3H PRN Administration Pain, severe (8-10) Mupirocin 0.5 gm 10/21/17 10:00 10/26/17 17:01 Bactroban 2% Nasal BROOK 0.5 gm BID NYDIA Administration Pantoprazole Sodium 40 mg 10/25/17 18:00 10/27/17 05:43 Protonix Inj IVP 40 mg Q12H NYDIA Administration Phenytoin 100 mg 10/18/17 20:45 10/27/17 12:28 Dilantin IVP 100 mg Q8H NYDIA Administration - Patient Studies Lab Studies: Lab Studies 10/27/17 10/27/17 10/27/17 Range/Units 12:17 12:00 12:00 WBC (4.8-10.8) K/uL RBC (3.80-5.20) Mil/uL Hgb (11.0-16.0) g/dL Hct (34.0-47.0) % MCV (81.0-99.0) fL MCH (27.0-31.0) pg MCHC (33.0-37.0) g/dL RDW (11.5-14.5) % Plt Count (130-400) K/uL MPV (7.2-11.7) fL Neut % (Auto) (50.0-75.0) % Lymph % (Auto) (20.0-40.0) % [place] % (Auto) (0.0-10.0) % Eos % (Auto) (0.0-4.0) % Baso % (Auto) (0.0-2.0) % Neut # (Auto) (1.8-7.0) K/uL Lymph # (Auto) (1.0-4.3) K/uL [place] # (Auto) (0.0-0.8) K/uL Eos # (Auto) (0.0-0.7) K/uL Baso # (Auto) (0.0-0.2) K/uL Neutrophils % (Manual) (50-75) % Lymphocytes % (Manual) (20-40) % Monocytes % (Manual) (0-10) % Platelet Estimate (NORMAL) Giant Platelets Hypochromasia (manual) Poikilocytosis (manual Anisocytosis (manual) Target Cells Ovalocytes [place] Cells Retic Count 4.5 H D (0.5-1.5) % Sodium Potassium Chloride Carbon Dioxide Anion Gap BUN Creatinine (0.7-1.2) mg/dL Est GFR ( Amer) Est GFR (Non-Af Amer) POC Glucose (mg/dL) (65-110) mg/dL Random Glucose Calcium Phosphorus (2.5-4.5) mg/dL Magnesium (1.6-2.3) mg/dL Ferritin 102.0 ng/mL Total Bilirubin AST ALT Alkaline Phosphatase Total Protein Albumin Globulin Albumin/Globulin Ratio Vitamin B12 824 (239-931) pg/mL Folate 13.8 ng/mL Blood Type A POSITIVE Antibody Screen Negative ELISEO, Poly Interpret Negative (NEGATIVE) 10/27/17 10/27/17 10/27/17 Range/Units 11:25 08:06 06:11 WBC (4.8-10.8) K/uL RBC (3.80-5.20) Mil/uL Hgb (11.0-16.0) g/dL Hct (34.0-47.0) % MCV (81.0-99.0) fL MCH (27.0-31.0) pg MCHC (33.0-37.0) g/dL RDW (11.5-14.5) % Plt Count (130-400) K/uL MPV (7.2-11.7) fL Neut % (Auto) (50.0-75.0) % Lymph % (Auto) (20.0-40.0) % [place] % (Auto) (0.0-10.0) % Eos % (Auto) (0.0-4.0) % Baso % (Auto) (0.0-2.0) % Neut # (Auto) (1.8-7.0) K/uL Lymph # (Auto) (1.0-4.3) K/uL [place] # (Auto) (0.0-0.8) K/uL Eos # (Auto) (0.0-0.7) K/uL Baso # (Auto) (0.0-0.2) K/uL Neutrophils % (Manual) (50-75) % Lymphocytes % (Manual) (20-40) % Monocytes % (Manual) (0-10) % Platelet Estimate (NORMAL) Giant Platelets Hypochromasia (manual) Poikilocytosis (manual Anisocytosis (manual) Target Cells Ovalocytes [place] Cells Retic Count (0.5-1.5) % Sodium 138 Cancelled Potassium 4.3 Cancelled Chloride 106 Cancelled Carbon Dioxide 20 L Cancelled Anion Gap 17 Cancelled BUN 9 Cancelled Creatinine 0.9 0.7 (0.7-1.2) mg/dL Est GFR ( Amer) > 60 Cancelled Est GFR (Non-Af Amer) > 60 Cancelled POC Glucose (mg/dL) 260 H (65-110) mg/dL Random Glucose 359 H Cancelled Calcium 8.4 L Cancelled Phosphorus 2.8 (2.5-4.5) mg/dL Magnesium 1.3 L (1.6-2.3) mg/dL Ferritin ng/mL Total Bilirubin 0.5 Cancelled AST 23 Cancelled ALT < 6 L D Cancelled Alkaline Phosphatase 95 Cancelled Total Protein 5.8 L Cancelled Albumin 2.6 L Cancelled Globulin 3.2 Cancelled Albumin/Globulin Ratio 0.8 L Cancelled Vitamin B12 (239-931) pg/mL Folate ng/mL Blood Type Antibody Screen ELISEO, Poly Interpret (NEGATIVE) 10/27/17 10/27/17 10/26/17 Range/Units 06:11 05:46 23:36 WBC 10.8 (4.8-10.8) K/uL RBC 2.87 L (3.80-5.20) Mil/uL Hgb 8.6 L (11.0-16.0) g/dL Hct 26.2 L (34.0-47.0) % MCV 91.3 D (81.0-99.0) fL MCH 29.8 (27.0-31.0) pg MCHC 32.6 L (33.0-37.0) g/dL RDW 17.3 H (11.5-14.5) % Plt Count 228 (130-400) K/uL MPV 8.8 (7.2-11.7) fL Neut % (Auto) 86.1 H (50.0-75.0) % Lymph % (Auto) 7.3 L (20.0-40.0) % [place] % (Auto) 5.5 (0.0-10.0) % Eos % (Auto) 0.1 (0.0-4.0) % Baso % (Auto) 1.0 (0.0-2.0) % Neut # (Auto) 9.3 H (1.8-7.0) K/uL Lymph # (Auto) 0.8 L (1.0-4.3) K/uL [place] # (Auto) 0.6 (0.0-0.8) K/uL Eos # (Auto) 0.0 (0.0-0.7) K/uL Baso # (Auto) 0.1 (0.0-0.2) K/uL Neutrophils % (Manual) 85 H (50-75) % Lymphocytes % (Manual) 7 L (20-40) % Monocytes % (Manual) 8 (0-10) % Platelet Estimate Normal (NORMAL) Giant Platelets Present Hypochromasia (manual) Slight Poikilocytosis (manual Slight Anisocytosis (manual) Slight Target Cells Slight Ovalocytes Slight Addi Cells Slight Retic Count (0.5-1.5) % Sodium Potassium Chloride Carbon Dioxide Anion Gap BUN Creatinine (0.7-1.2) mg/dL Est GFR ( Amer) Est GFR (Non-Af Amer) POC Glucose (mg/dL) 355 H 382 H (65-110) mg/dL Random Glucose Calcium Phosphorus (2.5-4.5) mg/dL Magnesium (1.6-2.3) mg/dL Ferritin ng/mL Total Bilirubin AST ALT Alkaline Phosphatase Total Protein Albumin Globulin Albumin/Globulin Ratio Vitamin B12 (239-931) pg/mL Folate ng/mL Blood Type Antibody Screen ELISEO, Poly Interpret (NEGATIVE) 10/26/17 Range/Units 17:39 WBC (4.8-10.8) K/uL RBC (3.80-5.20) Mil/uL Hgb (11.0-16.0) g/dL Hct (34.0-47.0) % MCV (81.0-99.0) fL MCH (27.0-31.0) pg MCHC (33.0-37.0) g/dL RDW (11.5-14.5) % Plt Count (130-400) K/uL MPV (7.2-11.7) fL Neut % (Auto) (50.0-75.0) % Lymph % (Auto) (20.0-40.0) % [place] % (Auto) (0.0-10.0) % Eos % (Auto) (0.0-4.0) % Baso % (Auto) (0.0-2.0) % Neut # (Auto) (1.8-7.0) K/uL Lymph # (Auto) (1.0-4.3) K/uL [place] # (Auto) (0.0-0.8) K/uL Eos # (Auto) (0.0-0.7) K/uL Baso # (Auto) (0.0-0.2) K/uL Neutrophils % (Manual) (50-75) % Lymphocytes % (Manual) (20-40) % Monocytes % (Manual) (0-10) % Platelet Estimate (NORMAL) Giant Platelets Hypochromasia (manual) Poikilocytosis (manual Anisocytosis (manual) Target Cells Ovalocytes Addi Cells Retic Count (0.5-1.5) % Sodium Potassium Chloride Carbon Dioxide Anion Gap BUN Creatinine (0.7-1.2) mg/dL Est GFR ( Amer) Est GFR (Non-Af Amer) POC Glucose (mg/dL) 293 H (65-110) mg/dL Random Glucose Calcium Phosphorus (2.5-4.5) mg/dL Magnesium (1.6-2.3) mg/dL Ferritin ng/mL Total Bilirubin AST ALT Alkaline Phosphatase Total Protein Albumin Globulin Albumin/Globulin Ratio Vitamin B12 (239-931) pg/mL Folate ng/mL Blood Type Antibody Screen ELISEO, Poly Interpret (NEGATIVE) Laboratory Results - last 24 hr 10/26/17 10/26/17 10/27/17 17:39 23:36 05:46 WBC RBC Hgb Hct MCV MCH MCHC RDW Plt Count MPV Neut % (Auto) Lymph % (Auto) [place] % (Auto) Eos % (Auto) Baso % (Auto) Neut # (Auto) Lymph # (Auto) [place] # (Auto) Eos # (Auto) Baso # (Auto) Neutrophils % (Manual) Lymphocytes % (Manual) Monocytes % (Manual) Platelet Estimate Giant Platelets Hypochromasia (manual) Poikilocytosis (manual Anisocytosis (manual) Target Cells Ovalocytes [place] Cells Retic Count Sodium Potassium Chloride Carbon Dioxide Anion Gap BUN Creatinine Est GFR ( Amer) Est GFR (Non-Af Amer) POC Glucose (mg/dL) 293 H 382 H 355 H Random Glucose Calcium Phosphorus Magnesium Ferritin Total Bilirubin AST ALT Alkaline Phosphatase Total Protein Albumin Globulin Albumin/Globulin Ratio Vitamin B12 Folate Blood Type Antibody Screen ELISEO, Poly Interpret 10/27/17 10/27/17 10/27/17 06:11 06:11 08:06 WBC 10.8 RBC 2.87 L Hgb 8.6 L Hct 26.2 L MCV 91.3 D MCH 29.8 MCHC 32.6 L RDW 17.3 H Plt Count 228 MPV 8.8 Neut % (Auto) 86.1 H Lymph % (Auto) 7.3 L [place] % (Auto) 5.5 Eos % (Auto) 0.1 Baso % (Auto) 1.0 Neut # (Auto) 9.3 H Lymph # (Auto) 0.8 L [place] # (Auto) 0.6 Eos # (Auto) 0.0 Baso # (Auto) 0.1 Neutrophils % (Manual) 85 H Lymphocytes % (Manual) 7 L Monocytes % (Manual) 8 Platelet Estimate Normal Giant Platelets Present Hypochromasia (manual) Slight Poikilocytosis (manual Slight Anisocytosis (manual) Slight Target Cells Slight Ovalocytes Slight [place] Cells Slight Retic Count Sodium Cancelled 138 Potassium Cancelled 4.3 Chloride Cancelled 106 Carbon Dioxide Cancelled 20 L Anion Gap Cancelled 17 BUN Cancelled 9 Creatinine 0.7 0.9 Est GFR ( Amer) Cancelled > 60 Est GFR (Non-Af Amer) Cancelled > 60 POC Glucose (mg/dL) Random Glucose Cancelled 359 H Calcium Cancelled 8.4 L Phosphorus 2.8 Magnesium 1.3 L Ferritin Total Bilirubin Cancelled 0.5 AST Cancelled 23 ALT Cancelled < 6 L D Alkaline Phosphatase Cancelled 95 Total Protein Cancelled 5.8 L Albumin Cancelled 2.6 L Globulin Cancelled 3.2 Albumin/Globulin Ratio Cancelled 0.8 L Vitamin B12 Folate Blood Type Antibody Screen ELISEO, Poly Interpret 10/27/17 10/27/17 10/27/17 11:25 12:00 12:00 WBC RBC Hgb Hct MCV MCH MCHC RDW Plt Count MPV Neut % (Auto) Lymph % (Auto) [place] % (Auto) Eos % (Auto) Baso % (Auto) Neut # (Auto) Lymph # (Auto) [place] # (Auto) Eos # (Auto) Baso # (Auto) Neutrophils % (Manual) Lymphocytes % (Manual) Monocytes % (Manual) Platelet Estimate Giant Platelets Hypochromasia (manual) Poikilocytosis (manual Anisocytosis (manual) Target Cells Ovalocytes [place] Cells Retic Count 4.5 H D Sodium Potassium Chloride Carbon Dioxide Anion Gap BUN Creatinine Est GFR ( Amer) Est GFR (Non-Af Amer) POC Glucose (mg/dL) 260 H Random Glucose Calcium Phosphorus Magnesium Ferritin 102.0 Total Bilirubin AST ALT Alkaline Phosphatase Total Protein Albumin Globulin Albumin/Globulin Ratio Vitamin B12 824 Folate 13.8 Blood Type Antibody Screen ELISEO, Poly Interpret 10/27/17 12:17 WBC RBC Hgb Hct MCV MCH MCHC RDW Plt Count MPV Neut % (Auto) Lymph % (Auto) [place] % (Auto) Eos % (Auto) Baso % (Auto) Neut # (Auto) Lymph # (Auto) [place] # (Auto) Eos # (Auto) Baso # (Auto) Neutrophils % (Manual) Lymphocytes % (Manual) Monocytes % (Manual) Platelet Estimate Giant Platelets Hypochromasia (manual) Poikilocytosis (manual Anisocytosis (manual) Target Cells Ovalocytes [place] Cells Retic Count Sodium Potassium Chloride Carbon Dioxide Anion Gap BUN Creatinine Est GFR ( Amer) Est GFR (Non-Af Amer) POC Glucose (mg/dL) Random Glucose Calcium Phosphorus Magnesium Ferritin Total Bilirubin AST ALT Alkaline Phosphatase Total Protein Albumin Globulin Albumin/Globulin Ratio Vitamin B12 Folate Blood Type A POSITIVE Antibody Screen Negative ELISEO, Poly Interpret Negative Critical Care Progress Note - Nutrition Nutrition: Nutrition Category Date Time Status Liquid Diet [DIET] Diets 10/27/17 Breakfast Active Attending/Attestation - Attestation I have personally seen and examined this patient.: Yes I have fully participated in the care of the patient.: Yes I have reviewed all pertinent clinical information: Yes Notes (Text): 10/27/17 16:07 Today: Friday, October 27, 2017 The Patient was seen and examined at the bedside, Medical records reviewed, and management issues were discussed and formulated with the house staff. I have reviewed all the relevant clinical, laboratory, hemodynamic, radiographic data and medications Events reviewed Pain issues, skin care, head of the bed elevation, glycemic control were addressed. Agree with above resident's assessment and treatment plans of care as transcribed in Dr. Cristal Zavala note.
[2017-10-27 13:43] LABS: FOLATE 13.8 ng/mL
--- NOTE | 2017-10-27 15:21 | CP.PCM.PN ---
Subjective - Date & Time of Evaluation Date of Evaluation: 10/27/17 Time of Evaluation: 08:00 - Subjective Subjective: iv rx in progress Objective - Vital Signs/Intake and Output Vital Signs (last 24 hours): Temp Pulse Resp BP Pulse Ox 98.5 F 98 H 18 134/48 L 99 10/27/17 12:00 10/27/17 12:00 10/27/17 12:00 10/27/17 12:00 10/27/17 12:00 Intake and Output: 10/27/17 10/27/17 06:59 18:59 Intake Total 1300 560 Output Total 920 Balance 1300 -360 - Medications Medications: Current Medications Amlodipine Besylate (Norvasc) 10 mg PO DAILY [facility] Last Admin: 10/20/17 09:57 Dose: Not Given Enalaprilat (Vasotec) 1.25 mg IV Q6 [facility] Vancomycin/Sodium Chloride (Vancomycin 1 Gm/Ns 200 Ml) 1 gm in 200 mls @ 133 mls/hr IVPB Q24H [facility] PRN Reason: Protocol Stop: 10/30/17 18:01 Last Admin: 10/26/17 17:02 Dose: 133 mls/hr Multivitamins/Vitamin C 10 ml/Insulin Human Regular 10 unit / Amino Acids 1, 010.1 mls @ 104 mls/hr IV .Q9H43M [facility] Stop: 10/28/17 03:42 Insulin Human Regular 10 unit/ (Amino Acids) 1,000.1 mls @ 104 mls/hr IV .Q9H37M ONE Stop: 10/28/17 13:19 Insulin Human Regular 10 unit/ (Amino Acids) 1,000.1 mls @ 104 mls/hr IV .Q9H37M [facility] Stop: 10/28/17 17:59 Folic Acid 1 mg/ Sodium (Chloride) 100.2 mls @ 60 mls/hr IV DAILY [facility] Last Admin: 10/27/17 11:50 Dose: 60 mls/hr Insulin Aspart (Novolog) 0 unit SC Q6 [facility] PRN Reason: Protocol Last Admin: 10/27/17 12:27 Dose: 6 unit Metoprolol Tartrate (Lopressor) 5 mg IVP Q6H [facility] Last Admin: 10/27/17 09:34 Dose: 5 mg Morphine Sulfate (Morphine) 2 mg IV Q4H PRN PRN Reason: Pain, MODERATE (4-7) Last Admin: 10/25/17 15:32 Dose: 2 mg Morphine Sulfate (Morphine) 4 mg IVP Q3H PRN PRN Reason: Pain, severe (8-10) Last Admin: 10/27/17 10:30 Dose: 4 mg Mupirocin (Bactroban 2% Nasal) 0.5 gm BROOK BID [facility] Last Admin: 10/26/17 17:01 Dose: 0.5 gm Pantoprazole Sodium (Protonix Inj) 40 mg IVP Q12H [facility] Last Admin: 10/27/17 05:43 Dose: 40 mg Phenytoin (Dilantin) 100 mg IVP Q8H [facility] Last Admin: 10/27/17 12:28 Dose: 100 mg - Labs Labs: 10/27/17 06:11 10/27/17 08:06 PT 12.8 SECONDS (9.7-12.2) H 10/24/17 06:22 INR 1.1 10/24/17 06:22 APTT 30 SECONDS (21-34) 10/24/17 06:22 - Constitutional Appears: Non-toxic, Chronically Ill - Head Exam Head Exam: NORMOCEPHALIC - Eye Exam Eye Exam: PERRL - ENT Exam ENT Exam: Mucous Membranes Dry - Neck Exam Neck Exam: absent: Lymphadenopathy - Respiratory Exam Respiratory Exam: Decreased Breath Sounds - Cardiovascular Exam Cardiovascular Exam: REGULAR RHYTHM Assessment and Plan (1) Anemia Status: Acute (2) Toe gangrene Status: Acute (3) CAD (coronary artery disease) Status: Chronic (4) Dyslipidemia Status: Chronic (5) PVD (peripheral vascular disease) Status: Chronic (6) Uncontrolled diabetes mellitus Status: Chronic
[2017-10-27] MEDS ORDERED: Iodixanol 320 MG/ML 100 ML BOTTLE IV ONE (16:34)
--- NOTE | 2017-10-27 17:35 | CT ---
PROCEDURE: CT Angiography chest, abdomen and pelvis HISTORY: assess for splenic hemorrhage COMPARISON: CT abdomen/ pelvis 10/23/2017 TECHNIQUE: IV dose administered: 100 mL Visipaque [address] exam was performed using one or more of the following dose reduction techniques: Automated exposure control, adjustment of the mA and/or kV according to patient size, and/or use of iterative reconstruction technique. Radiation dose: Total exam DLP = 1112.34 mGy-cm. FINDINGS: CT CHEST WITH CONTRAST: LUNGS: Bilateral lower lobe compressive atelectasis. Mild mosaic attenuation noted in both upper lobes, nonspecific. No acute infiltrate. No pulmonary mass. MEDIASTINUM: Normal thoracic aorta and pulmonary arterial trunk. Mild cardiomegaly. No pericardial effusion. LYMPH NODES: Unremarkable. PLEURA: Small bilateral pleural effusion. No pneumothorax. BONES: Status post sternotomy. No acute fracture. OTHER FINDINGS: None. CT ABDOMEN AND PELVIS: LIVER: Mild hepatomegaly. The liver measures 19.6 cm craniocaudal. No mass. Smooth contour. Normal attenuation. No biliary dilatation. GALLBLADDER AND BILE DUCTS: Unremarkable. PANCREAS: Unremarkable. No gross lesion or ductal dilatation. SPLEEN: No evidence of splenic laceration or hemorrhage. Heterogeneous enhancement of spleen appropriate for CT angiography. Inadequate evaluation for splenic infarction due to arterial phase of enhancement. No splenic mass appreciated. ADRENALS: Unremarkable. No mass. KIDNEYS AND URETERS: Unremarkable. No hydronephrosis. No solid mass. VASCULATURE: No evidence of thoracic or abdominal aortic aneurysm. There is severe stenosis of the proximal SMA over a length of approximately 1.4 cm. There is no occlusion. The celiac axis is patent. The inferior mesenteric artery is patent. There is mild stenosis at the origin of the inferior mesenteric artery. The common iliac and internal and external iliac vessels are unremarkable. BOWEL: No evidence of bowel obstruction. There is a surgical anastomosis seen in small bowel loops in the left upper quadrant of the abdomen. A 2nd anastomosis is seen loops of ileum in the right lower quadrant of the abdomen. APPENDIX: Normal appendix. PERITONEUM: Unremarkable. No free fluid. No free air. LYMPH NODES: Unremarkable. No enlarged lymph nodes. BLADDER: Small amount of gas seen within the urinary bladder likely due to instrumentation/catheterization. REPRODUCTIVE: Coarsely calcified uterine fibroids. Vaguely tubular fluid density structure in the right adnexal region may reflect hydrosalpinx. No change from prior CT. BONES: No acute fracture. OTHER FINDINGS: None. IMPRESSION: No evidence of splenic laceration/ hematoma. Unable to evaluate for splenic infarction due to arterial phase of imaging as per the requested study. Bilateral small pleural effusion with bilateral lower lobe compressive atelectasis. Mosaic attenuation in both upper lobes common nonspecific. Postoperative changes in jejunum and ileum. 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 Stenosis at the origin of the SARAVANAN. No evidence of aortic aneurysm or dissection. Calcified uterine fibroids. Possible right hydrosalpinx.
[2017-10-27] MEDS ORDERED: PPN #1 IV SCH (18:00)
[2017-10-27] MEDS: Vancomycin 1 gm/NS 200 ml 1 GM/200 ML BAG IVPB SCH (18:02)
[2017-10-27] MEDS ORDERED: Enalaprilat 2.5 MG/2 ML IV ONE ×2 (19:09→20:59)
--- NOTE | 2017-10-27 22:39 | CP.PCM.CON ---
History of Present Illness - History of Present Illness History of Present Illness: 57 year old female with a history of tobacco abuse, DM, PVC with vascular intervention, mechanical mitral and aortic valve replacement, admitted with left toe gangrene s/p anticoagulation complicated by GI bleeding, requiring exploratory laparotomy with resection of distal small bowel, with anemia and concern for hemolysis. The patient reports to abdominal pain post surgery. She notes to intermittent GI bleeding in the past and was treated at an outside hospital. Review of her medical records show the patient has been transfused 13 units PRBC. She has a low haptoglobin, with a concern for hemolytic anemia. Past medical history: tobacco abuse, DM, PVC, mechanical mitral and aortic valve replacement, toe gangrene Past surgical history: Mitral/aortic valve replacement Family history: Denies hematologic and oncologic problems Social history: Tobacco abuse Allergies: NKA All remaining review of systems including HEENT, cardiovascular, respiratory, gastrointestinal, genitourinary, musculoskeletal, dermatologic, neurologic, and psychiatric are negative unless mentioned in the HPI. Past Patient History - Past Medical History & Family History Past Medical History?: Yes - Past Social History Smoking Status: Light Smoker < 10 Cigarettes Daily - CARDIAC Hx Hypercholesterolemia: Yes Hx Hypertension: Yes - PULMONARY Hx Respiratory Disorders: Yes Hx Asthma: Yes - NEUROLOGICAL Hx Neurological Disorder: Yes Hx Seizures: Yes - HEENT Hx HEENT Problems: No - RENAL Hx Chronic Kidney Disease: No - ENDOCRINE/METABOLIC Hx Diabetes Mellitus Type 2: Yes - HEMATOLOGICAL/ONCOLOGICAL Hx Blood Disorders: Yes Hx Anemia: Yes Hx Blood Transfusions: Yes Hx Bruising: Yes - INTEGUMENTARY Hx Dermatological Problems: No - MUSCULOSKELETAL/RHEUMATOLOGICAL Hx Falls: No - GASTROINTESTINAL Hx Constipation: Yes Hx Gastritis: Yes Hx Gastroesophageal Reflux: Yes - GENITOURINARY/GYNECOLOGICAL Hx Genitourinary Disorders: No - PSYCHIATRIC Hx Substance Use: No - SURGICAL HISTORY Hx Valve Replacement: Yes Other/Comment: left leg stent placement - ANESTHESIA Hx Anesthesia: Yes Hx Anesthesia Reactions: No Has any member of the family had a problem w/ anesthesia?: No Meds Allergies/Adverse Reactions: Allergies Allergy/AdvReac Type Severity Reaction Status Date / Time No Known Allergies Allergy Verified 10/14/17 12:13 - Medications Medications: Current Medications Amlodipine Besylate (Norvasc) 10 mg PO DAILY [facility] Last Admin: 10/20/17 09:57 Dose: Not Given Enalaprilat (Vasotec) 1.25 mg IV Q6 [facility] Last Admin: 10/27/17 18:03 Dose: 1.25 mg Vancomycin/Sodium Chloride (Vancomycin 1 Gm/Ns 200 Ml) 1 gm in 200 mls @ 133 mls/hr IVPB Q24H [facility] PRN Reason: Protocol Stop: 10/30/17 18:01 Last Admin: 10/27/17 18:02 Dose: 133 mls/hr Multivitamins/Vitamin C 10 ml/Insulin Human Regular 10 unit / Amino Acids 1, 010.1 mls @ 104 mls/hr IV .Q9H43M [facility] Stop: 10/28/17 03:42 Last Admin: 10/27/17 18:04 Dose: 104 mls/hr Insulin Human Regular 10 unit/ (Amino Acids) 1,000.1 mls @ 104 mls/hr IV .Q9H37M [facility] Stop: 10/28/17 13:19 Insulin Human Regular 10 unit/ (Amino Acids) 1,000.1 mls @ 104 mls/hr IV .Q9H37M [facility] Stop: 10/28/17 17:59 Folic Acid 1 mg/ Sodium (Chloride) 100.2 mls @ 60 mls/hr IV DAILY [facility] Last Admin: 10/27/17 11:50 Dose: 60 mls/hr Insulin Aspart (Novolog) 0 unit SC Q6 [facility] PRN Reason: Protocol Last Admin: 10/27/17 18:00 Dose: 4 unit Metoprolol Tartrate (Lopressor) 5 mg IVP Q6H [facility] Last Admin: 10/27/17 20:14 Dose: 5 mg Morphine Sulfate (Morphine) 2 mg IV Q4H PRN PRN Reason: Pain, MODERATE (4-7) Last Admin: 10/25/17 15:32 Dose: 2 mg Morphine Sulfate (Morphine) 4 mg IVP Q3H PRN PRN Reason: Pain, severe (8-10) Last Admin: 10/27/17 21:56 Dose: 4 mg Mupirocin (Bactroban 2% Nasal) 0.5 gm BROOK BID [facility] Last Admin: 10/27/17 18:00 Dose: 0.5 gm Nitroglycerin (Nitro-Bid 2% Oint) 1 ea TOP Q6 [facility] Ondansetron HCl (Zofran Inj) 4 mg IVP Q6H PRN PRN Reason: Nausea/Vomiting Last Admin: 10/27/17 19:41 Dose: 4 mg Pantoprazole Sodium (Protonix Inj) 40 mg IVP Q12H [facility] Last Admin: 10/27/17 18:01 Dose: 40 mg Phenytoin (Dilantin) 100 mg IVP Q8H [facility] Last Admin: 10/27/17 19:45 Dose: 100 mg Physical Exam - Head Exam Head Exam: ATRAUMATIC - Eye Exam Eye Exam: Normal appearance - ENT Exam ENT Exam: Mucous Membranes Dry - Respiratory Exam Respiratory Exam: NORMAL BREATHING PATTERN - Cardiovascular Exam Cardiovascular Exam: +S1, +S2 - GI/Abdominal Exam GI & Abdominal Exam: Normal Bowel Sounds - Extremities Exam Additional comments: foot bandage - Neurological Exam Neurological exam: Oriented x3 - Psychiatric Exam Psychiatric exam: Normal Affect, Normal Mood - Skin Skin Exam: Warm Results - Vital Signs Recent Vital Signs: Last Vital Signs Temp 98.5 F 10/27/17 20:00 Pulse 100 H 10/27/17 20:03 Resp 15 10/27/17 20:03 BP 207/85 H 10/27/17 21:22 Pulse Ox 99 10/27/17 20:03 - Labs Result Diagrams: 10/27/17 06:11 10/27/17 08:06 Labs: Laboratory Results - last 24 hr 10/26/17 10/27/17 10/27/17 23:36 05:46 06:11 WBC 10.8 RBC 2.87 L Hgb 8.6 L Hct 26.2 L MCV 91.3 D MCH 29.8 MCHC 32.6 L RDW 17.3 H Plt Count 228 MPV 8.8 Neut % (Auto) 86.1 H Lymph % (Auto) 7.3 L [place] % (Auto) 5.5 Eos % (Auto) 0.1 Baso % (Auto) 1.0 Neut # (Auto) 9.3 H Lymph # (Auto) 0.8 L [place] # (Auto) 0.6 Eos # (Auto) 0.0 Baso # (Auto) 0.1 Neutrophils % (Manual) 85 H Lymphocytes % (Manual) 7 L Monocytes % (Manual) 8 Platelet Estimate Normal Giant Platelets Present Hypochromasia (manual) Slight Poikilocytosis (manual Slight Anisocytosis (manual) Slight Target Cells Slight Ovalocytes Slight Add[place] Cells Slight Retic Count Sodium Potassium Chloride Carbon Dioxide Anion Gap BUN Creatinine Est GFR ( Amer) Est GFR (Non-Af Amer) POC Glucose (mg/dL) 382 H 355 H Random Glucose Calcium Phosphorus Magnesium Ferritin Total Bilirubin AST ALT Alkaline Phosphatase Total Protein Albumin Globulin Albumin/Globulin Ratio Vitamin B12 Folate Blood Type Antibody Screen ELISEO, Poly Interpret 10/27/17 10/27/17 10/27/17 06:11 08:06 11:25 WBC RBC Hgb Hct MCV MCH MCHC RDW Plt Count MPV Neut % (Auto) Lymph % (Auto) [place] % (Auto) Eos % (Auto) Baso % (Auto) Neut # (Auto) Lymph # (Auto) [place] # (Auto) Eos # (Auto) Baso # (Auto) Neutrophils % (Manual) Lymphocytes % (Manual) Monocytes % (Manual) Platelet Estimate Giant Platelets Hypochromasia (manual) Poikilocytosis (manual Anisocytosis (manual) Target Cells Ovalocytes Add[place] Cells Retic Count Sodium Cancelled 138 Potassium Cancelled 4.3 Chloride Cancelled 106 Carbon Dioxide Cancelled 20 L Anion Gap Cancelled 17 BUN Cancelled 9 Creatinine 0.7 0.9 Est GFR ( Amer) Cancelled > 60 Est GFR (Non-Af Amer) Cancelled > 60 POC Glucose (mg/dL) 260 H Random Glucose Cancelled 359 H Calcium Cancelled 8.4 L Phosphorus 2.8 Magnesium 1.3 L Ferritin Total Bilirubin Cancelled 0.5 AST Cancelled 23 ALT Cancelled < 6 L D Alkaline Phosphatase Cancelled 95 Total Protein Cancelled 5.8 L Albumin Cancelled 2.6 L Globulin Cancelled 3.2 Albumin/Globulin Ratio Cancelled 0.8 L Vitamin B12 Folate Blood Type Antibody Screen ELISEO, Poly Interpret 10/27/17 10/27/17 10/27/17 12:00 12:00 12:17 WBC RBC Hgb Hct MCV MCH MCHC RDW Plt Count MPV Neut % (Auto) Lymph % (Auto) [place] % (Auto) Eos % (Auto) Baso % (Auto) Neut # (Auto) Lymph # (Auto) [place] # (Auto) Eos # (Auto) Baso # (Auto) Neutrophils % (Manual) Lymphocytes % (Manual) Monocytes % (Manual) Platelet Estimate Giant Platelets Hypochromasia (manual) Poikilocytosis (manual Anisocytosis (manual) Target Cells Ovalocytes Addi Cells Retic Count 4.5 H D Sodium Potassium Chloride Carbon Dioxide Anion Gap BUN Creatinine Est GFR ( Amer) Est GFR (Non-Af Amer) POC Glucose (mg/dL) Random Glucose Calcium Phosphorus Magnesium Ferritin 102.0 Total Bilirubin AST ALT Alkaline Phosphatase Total Protein Albumin Globulin Albumin/Globulin Ratio Vitamin B12 824 Folate 13.8 Blood Type A POSITIVE Antibody Screen Negative ELISEO, Poly Interpret Negative 10/27/17 17:31 WBC RBC Hgb Hct MCV MCH MCHC RDW Plt Count MPV Neut % (Auto) Lymph % (Auto) [place] % (Auto) Eos % (Auto) Baso % (Auto) Neut # (Auto) Lymph # (Auto) [place] # (Auto) Eos # (Auto) Baso # (Auto) Neutrophils % (Manual) Lymphocytes % (Manual) Monocytes % (Manual) Platelet Estimate Giant Platelets Hypochromasia (manual) Poikilocytosis (manual Anisocytosis (manual) Target Cells Ovalocytes [place] Cells Retic Count Sodium Potassium Chloride Carbon Dioxide Anion Gap BUN Creatinine Est GFR ( Amer) Est GFR (Non-Af Amer) POC Glucose (mg/dL) 206 H Random Glucose Calcium Phosphorus Magnesium Ferritin Total Bilirubin AST ALT Alkaline Phosphatase Total Protein Albumin Globulin Albumin/Globulin Ratio Vitamin B12 Folate Blood Type Antibody Screen ELISEO, Poly Interpret Assessment & Plan (1) Anemia Assessment and Plan: multifactorial; hypoproliferative erythroid response likely chronic iron deficiency from chronic slow GI blood loss while on anticoagulation exacerbated by acute faster GI bleeding 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 Status: Acute Priority: High
--- NOTE | 2017-10-27 23:41 | CP.PCM.PN ---
Subjective - Date & Time of Evaluation Date of Evaluation: 10/27/17 Time of Evaluation: 18:00 - Subjective Subjective: Pt is post op, feeling better, B.P is high so i ordered nitropaste, pt is denying any chest pain, nausea, vomitting, afebrile,H and H is stable Objective - Vital Signs/Intake and Output Vital Signs (last 24 hours): Temp Pulse Resp BP Pulse Ox 98.5 F 100 H 15 207/85 H 99 10/27/17 20:00 10/27/17 20:03 10/27/17 20:03 10/27/17 21:22 10/27/17 20:03 Intake and Output: 10/27/17 10/28/17 18:59 06:59 Intake Total 897.3 549.3 Output Total 1370 Balance -472.7 549.3 - Medications Medications: Current Medications Amlodipine Besylate (Norvasc) 10 mg PO DAILY [facility] Last Admin: 10/20/17 09:57 Dose: Not Given Enalaprilat (Vasotec) 1.25 mg IV Q6 [facility] Last Admin: 10/27/17 18:03 Dose: 1.25 mg Vancomycin/Sodium Chloride (Vancomycin 1 Gm/Ns 200 Ml) 1 gm in 200 mls @ 133 mls/hr IVPB Q24H [facility] PRN Reason: Protocol Stop: 10/30/17 18:01 Last Admin: 10/27/17 18:02 Dose: 133 mls/hr Multivitamins/Vitamin C 10 ml/Insulin Human Regular 10 unit / Amino Acids 1, 010.1 mls @ 104 mls/hr IV .Q9H43M [facility] Stop: 10/28/17 03:42 Last Admin: 10/27/17 18:04 Dose: 104 mls/hr Insulin Human Regular 10 unit/ (Amino Acids) 1,000.1 mls @ 104 mls/hr IV .Q9H37M [facility] Stop: 10/28/17 13:19 Insulin Human Regular 10 unit/ (Amino Acids) 1,000.1 mls @ 104 mls/hr IV .Q9H37M [facility] Stop: 10/28/17 17:59 Folic Acid 1 mg/ Sodium (Chloride) 100.2 mls @ 60 mls/hr IV DAILY [facility] Last Admin: 10/27/17 11:50 Dose: 60 mls/hr Insulin Aspart (Novolog) 0 unit SC Q6 [facility] PRN Reason: Protocol Last Admin: 10/27/17 18:00 Dose: 4 unit Metoprolol Tartrate (Lopressor) 5 mg IVP Q6H [facility] Last Admin: 10/27/17 20:14 Dose: 5 mg Morphine Sulfate (Morphine) 2 mg IV Q4H PRN PRN Reason: Pain, MODERATE (4-7) Last Admin: 10/25/17 15:32 Dose: 2 mg Morphine Sulfate (Morphine) 4 mg IVP Q3H PRN PRN Reason: Pain, severe (8-10) Last Admin: 10/27/17 21:56 Dose: 4 mg Mupirocin (Bactroban 2% Nasal) 0.5 gm BROOK BID [facility] Last Admin: 10/27/17 18:00 Dose: 0.5 gm Nitroglycerin (Nitro-Bid 2% Oint) 1 ea TOP Q6 [facility] Ondansetron HCl (Zofran Inj) 4 mg IVP Q6H PRN PRN Reason: Nausea/Vomiting Last Admin: 10/27/17 19:41 Dose: 4 mg Pantoprazole Sodium (Protonix Inj) 40 mg IVP Q12H [facility] Last Admin: 10/27/17 18:01 Dose: 40 mg Phenytoin (Dilantin) 100 mg IVP Q8H [facility] Last Admin: 10/27/17 19:45 Dose: 100 mg - Labs Labs: 10/27/17 06:11 10/27/17 08:06 PT 12.8 SECONDS (9.7-12.2) H 10/24/17 06:22 INR 1.1 10/24/17 06:22 APTT 30 SECONDS (21-34) 10/24/17 06:22 - Constitutional Appears: No Acute Distress - Head Exam Head Exam: ATRAUMATIC, NORMAL INSPECTION, NORMOCEPHALIC - Eye Exam Eye Exam: EOMI, Normal appearance, PERRL Pupil Exam: NORMAL ACCOMODATION, PERRL - Respiratory Exam Respiratory Exam: Decreased Breath Sounds, Rales - Cardiovascular Exam Cardiovascular Exam: REGULAR RHYTHM, +S1, +S2, Murmur Assessment and Plan (1) GI bleed Status: Acute (2) Anemia Status: Acute (3) Toe gangrene Status: Acute (4) CAD (coronary artery disease) Status: Chronic (5) Uncontrolled hypertension Status: Acute (6) S/P MVR (mitral valve replacement) Status: Acute
--- NOTE | 2017-10-28 00:11 | PN ---
DATE: SUBJECTIVE: The patient had no reported melena. However, her hemoglobin is dropping. She denies any chest pain. No reported respiratory distress. PHYSICAL EXAMINATION: VITAL SIGNS: Blood pressure 189/48, heart rate 95, respirations 12, temperature 97.9. HEENT: Pale conjunctivae. CHEST: Basal rhonchi. HEART: S1 and S2, regular. ABDOMEN: Absent bowel sounds. EXTREMITIES: 1+ pitting edema. LABORATORY DATA: Today's SMA-7 is within normal limits except glucose was 359 and carbon dioxide was 20. Today's hemoglobin and hematocrit are 8.6 and 26.3, white count and platelet count are within normal limits. Repeat chest and abdomen and pelvic CT angio revealed no evidence of splenic laceration or hematoma. Unable to evaluate for splenic infarct due to arterial [place] of imaging. Bilateral small pleural effusion with bilateral lower lobe compressive atelectasis. ASSESSMENT: 1. Status post mitral and aortic valve replacement. 2. Status post distal small bowel resection. 3. Peripheral vascular disease, status post recent left lower extremity stenting. 4. Uncontrolled hypertension. 5. Seizure disorder. RECOMMENDATIONS: The patient did receive IV Vasotec 2.5 mg today and she is on IV 1.25 intravenous every 6 hours. Continue IV vancomycin and IV Protonix. The patient was started on clear liquids and oral Lopressor was resumed today. So far anticoagulation was not indicated unless approved by both the surgeon and the surgical dressing maker. Kraig Sheldon MD
[2017-10-28] MEDS: Enalaprilat 2.5 MG/2 ML IV SCH ×5 (00:15→23:34)
[2017-10-28] MEDS: Nitroglycerin 2% Ointment Foilpak UD TOP SCH ×5 (00:15→23:34)
[2017-10-28] MEDS: (Novolog) Insulin Aspart, Recombinant 100 u/ml 10 ml vial SC SCH ×4 (00:26→18:19)
[2017-10-28] MEDS: Morphine 4 MG/ML VIAL IVP PRN ×2 (02:18→20:40)
[2017-10-28] MEDS: Metoprolol 1 mg/ml Inj IVP SCH ×4 (02:22→20:39)
[2017-10-28] MEDS ORDERED: PPN #2 IV ONE (03:43)
[2017-10-28] MEDS: Phenytoin 100 mg/2 ml Inj IVP SCH ×3 (04:07→21:08)
[2017-10-28 06:18] LABS: BASO # 0.1 K/uL (0.0-0.2); BASO % 0.9 % (0.0-2.0); EOS # 0.1 K/uL (0.0-0.7); EOS % 0.4 % (0.0-4.0); HEMOGLOBIN 10.9 g/dL (11.0-16.0); LYMPH # 1.2 K/uL (1.0-4.3); LYMPH % 9.7 % (20.0-40.0); MEAN CELL VOLUME 87.6 fL (81.0-99.0); MEAN CORPUSCULAR HGB CONC 33.1 g/dL (33.0-37.0); MEAN PLATELET VOLUME 8.4 fL (7.2-11.7); MONO # 0.5 K/uL (0.0-0.8); MONO % 4.4 % (0.0-10.0); NEUT # 10.4 K/uL (1.8-7.0); NEUT % 84.6 % (50.0-75.0); NRBC % 0.1 % (0.0-2.0); PLATELET COUNT 359 K/uL (130-400); RBC 3.74 Mil/uL (3.80-5.20); RED CELL DISTRIBUTION WIDTH 16.7 % (11.5-14.5); WHITE BLOOD COUNT 12.3 K/uL (4.8-10.8)
[2017-10-28 06:32] LABS: ALB/GLOB RATIO 0.8 (1.0-2.1); ALBUMIN 2.8 g/dL (3.5-5.0); ALT/SGPT 7 U/L (9-52); AST/SGOT 20 U/L (14-36); BLOOD UREA NITROGEN 13 mg/dL (7-17); CALCIUM 8.5 mg/dl (8.6-10.4); GFR AFRICAN-AMERICAN > 60; GFR NON-AFRICAN AMERICAN > 60
--- NOTE | 2017-10-28 06:37 | CP.PCM.PN ---
Subjective - Date & Time of Evaluation Date of Evaluation: 10/28/17 Time of Evaluation: 06:15 - Subjective Subjective: General surgery progress note for Gerald Yousif, PGY-1 Pt S & E at bedside. Pt tolerating fluids, pain well controlled. Is OOBTC, reports flatus. Denies N & V, F & C. Per nursing, pt with soft stool overnight, non bloody. Objective - Vital Signs/Intake and Output Vital Signs (last 24 hours): Temp Pulse Resp BP Pulse Ox 98.5 F 100 H 12 101/50 L 99 10/27/17 20:00 10/28/17 06:03 10/28/17 06:03 10/28/17 06:03 10/28/17 06:03 Intake and Output: 10/27/17 10/28/17 18:59 06:59 Intake Total 897.3 1381.3 Output Total 1370 Balance -472.7 1381.3 - Medications Medications: Current Medications Amlodipine Besylate (Norvasc) 10 mg PO DAILY [facility] Last Admin: 10/20/17 09:57 Dose: Not Given Enalaprilat (Vasotec) 1.25 mg IV Q6 [facility] Last Admin: 10/28/17 05:03 Dose: 1.25 mg Hydralazine HCl (Apresoline) 10 mg IVP Q6H PRN PRN Reason: Hypertension Last Admin: 10/28/17 04:06 Dose: 10 mg Vancomycin/Sodium Chloride (Vancomycin 1 Gm/Ns 200 Ml) 1 gm in 200 mls @ 133 mls/hr IVPB Q24H [facility] PRN Reason: Protocol Stop: 10/30/17 18:01 Last Admin: 10/27/17 18:02 Dose: 133 mls/hr Insulin Human Regular 10 unit/ (Amino Acids) 1,000.1 mls @ 104 mls/hr IV .Q9H37M ONE Stop: 10/28/17 13:19 Last Admin: 10/28/17 04:00 Dose: 104 mls/hr Insulin Human Regular 10 unit/ (Amino Acids) 1,000.1 mls @ 104 mls/hr IV .Q9H37M [facility]DIA Stop: 10/28/17 17:59 Folic Acid 1 mg/ Sodium (Chloride) 100.2 mls @ 60 mls/hr IV DAILY [facility] Last Admin: 10/27/17 11:50 Dose: 60 mls/hr Insulin Aspart (Novolog) 0 unit SC Q6 [facility]DIA PRN Reason: Protocol Last Admin: 10/28/17 06:05 Dose: 10 unit Metoprolol Tartrate (Lopressor) 5 mg IVP Q6H [facility] Last Admin: 10/28/17 02:22 Dose: 5 mg Morphine Sulfate (Morphine) 2 mg IV Q4H PRN PRN Reason: Pain, MODERATE (4-7) Last Admin: 10/25/17 15:32 Dose: 2 mg Morphine Sulfate (Morphine) 4 mg IVP Q3H PRN PRN Reason: Pain, severe (8-10) Last Admin: 10/28/17 02:18 Dose: 4 mg Mupirocin (Bactroban 2% Nasal) 0.5 gm BROOK BID [facility] Last Admin: 10/27/17 18:00 Dose: 0.5 gm Nitroglycerin (Nitro-Bid 2% Oint) 1 ea TOP Q6 [facility] Last Admin: 10/28/17 05:03 Dose: 1 ea Ondansetron HCl (Zofran Inj) 4 mg IVP Q6H PRN PRN Reason: Nausea/Vomiting Last Admin: 10/28/17 00:50 Dose: 4 mg Pantoprazole Sodium (Protonix Inj) 40 mg IVP Q12H [facility] Last Admin: 10/28/17 05:03 Dose: 40 mg Phenytoin (Dilantin) 100 mg IVP Q8H [facility] Last Admin: 10/28/17 04:07 Dose: 100 mg - Labs Labs: 10/28/17 06:07 10/28/17 06:07 PT 12.8 SECONDS (9.7-12.2) H 10/24/17 06:22 INR 1.1 10/24/17 06:22 APTT 30 SECONDS (21-34) 10/24/17 06:22 - Constitutional Appears: Non-toxic, No Acute Distress - Head Exam Head Exam: ATRAUMATIC, NORMAL INSPECTION, NORMOCEPHALIC - Eye Exam Eye Exam: EOMI, Normal appearance - ENT Exam ENT Exam: Mucous Membranes Moist, Normal Exam - Neck Exam Neck Exam: Full ROM, Normal Inspection - Respiratory Exam Respiratory Exam: NORMAL BREATHING PATTERN - Cardiovascular Exam Cardiovascular Exam: Tachycardia, +S1, +S2 - GI/Abdominal Exam GI & Abdominal Exam: Soft, Tenderness (mild, along surgical incision site). absent: Distended, Firm, Guarding, Rigid Additional comments: Dressing along midline incision clean/dry/intact - Extremities Exam Extremities Exam: Normal Inspection. absent: Pedal Edema - Neurological Exam Neurological Exam: Alert, CN II-XII Intact, Oriented x3. absent: Awake (asleep , arousable to verbal stimuli) - Psychiatric Exam Psychiatric exam: Normal Affect, Normal Mood - Skin Skin Exam: Dry, Intact, Normal Color, Warm Assessment and Plan - Assessment and Plan (Free Text) Assessment: 57F POD#4 s/p ex-lap w/SB resection & anastomosis x 3 Plan: Cont CLD for now Cont pain control OOBTC Encourage IS use Monitor for bleeding, H/H Further mgmt as per primary & ICU teams Will MARTA attending Argenis, PGY-1
--- NOTE | 2017-10-28 08:42 | CP.CCUPN ---
CCU Subjective - Physician Review Events Since Last Encounter (Free Text): 10/28/17 08:42 57-year-old female with a history of hypertension and hyperlipidemia mechanical mitral, aortic valve replacement Patient was on anticoagulation, admitted to the intensive great with recurrent GI bleed Patient underwent 2 times upper endoscopy, colonoscopy. Finally patient underwent a small bowel resection, for an occult GI bleed. Jocelyn she does not have any active bleeding. Hemoglobin is stable. On examination: Vital signs stable. Chest good air entry irregular heart sound nontender abdomen Hemoglobin is stable. Elevated blood sugar noted, well-controlled. And coagulation needs to be addressed. Mr. continue to monitor. Assessment and recommendation: 57-year-old female with a history of hypertension, hyperlipidemia, mitral and aortic valve replacement mechanical Currently not on any antibiotic resolution, will discuss with the surgery and will follow the patient CCU Objective - Vital Signs / Intake & Output Vital Signs (Last 4 hours): Vital Signs Pulse Resp BP Pulse Ox 10/28/17 07:03 99 H 11 L 120/54 L 99 10/28/17 07:00 98 H 10 L 99 10/28/17 06:03 100 H 12 101/50 L 99 10/28/17 06:00 100 H 11 L 99/42 L 98 10/28/17 05:03 111 H 16 132/49 L 97 10/28/17 05:00 112 H 16 97 10/28/17 04:55 112 H 17 126/52 L 98 Intake and Output (Last 8hrs): Intake & Output 10/27/17 10/28/17 10/28/17 22:59 06:59 14:59 Intake Total 886.6 832 224 Output Total 450 1500 Balance 436.6 832 -1276 Weight 217 lb 5 oz Intake: Intake, IV Amount 786.6 832 104 Purple port Right PICC 266.6 line Red Port Right Picc line 520 832 104 Oral 100 120 Output: Urine 450 1500 Urine, Voided 450 1500 Other: # Voids Urine, Voided 1 2 # Bowel Movements 1 - Physical Exam Head: Positive for: Atraumatic, Normocephalic Pupils: Positive for: PERRL Extroacular Muscles: Positive for: EOMI Conjunctiva: Positive for: Normal Mouth: Positive for: Moist Mucous Membranes Nose (External): Positive for: Other (NGT in place) Neck: Positive for: Normal Range of Motion Respiratory/Chest: Positive for: Clear to Auscultation, Good Air Exchange. Negative for: Respiratory Distress, Accessory Muscle Use Cardiovascular: Positive for: Regular Rate and Rhythm, Normal S1, S2, Other ( systolic murmur). Negative for: Tachycardic Abdomen: Positive for: Normal Bowel Sounds. Negative for: Tenderness, Distention Upper Extremity: Positive for: Normal Inspection Lower Extremity: Positive for: Other (Right toe dressing intact) Neurological: Positive for: GCS=15 Skin: Positive for: Warm, Dry, Normal Color Psychiatric: Positive for: Alert, Oriented x 3 - Medications Active Medications: Active Medications Generic Name Dose Route Start Last Admin Trade Name Freq PRN Reason Stop Dose Admin Amlodipine Besylate 10 mg 10/15/17 10:00 10/20/17 09:57 Norvasc PO Not Given DAILY [facility] Enalaprilat 1.25 mg 10/27/17 12:26 10/28/17 05:03 Vasotec IV 1.25 mg Q6 NYDIA Administration Hydralazine HCl 10 mg 10/28/17 02:05 10/28/17 04:06 Apresoline IVP 10 mg Q6H PRN Administration Hypertension Vancomycin/Sodium Chloride 1 gm in 200 mls @ 133 mls/hr 10/25/17 18:00 18:02 Vancomycin 1 Gm/Ns 200 Ml IVPB 10/30/17 18:01 133 mls/hr Q24H [facility] Administration Protocol Insulin Human Regular 10 unit/ 1,000.1 mls @ 104 mls/hr 10/28/17 03:43 04:00 Amino Acids IV 10/28/17 13:19 104 mls/hr .Q9H37M ONE Administration Insulin Human Regular 10 unit/ 1,000.1 mls @ 104 mls/hr 10/28/17 13:20 Amino Acids IV 10/28/17 17:59 .Q9H37M [facility]DIA Folic Acid 1 mg/ Sodium 100.2 mls @ 60 mls/hr 10/27/17 10:00 10/27/17 11:50 Chloride IV 60 mls/hr DAILY [facility] Administration Insulin Aspart 0 unit 10/26/17 18:00 10/28/17 06:05 Novolog SC 10 unit Q6 [facility]DIA Administration Protocol Metoprolol Tartrate 5 mg 10/26/17 21:15 10/28/17 02:22 Lopressor IVP 5 mg Q6H [facility] Administration Morphine Sulfate 2 mg 10/24/17 15:45 10/25/17 15:32 Morphine IV 2 mg Q4H PRN Administration Pain, MODERATE (4-7) Morphine Sulfate 4 mg 10/26/17 11:15 10/28/17 02:18 Morphine IVP 4 mg Q3H PRN Administration Pain, severe (8-10) Mupirocin 0.5 gm 10/21/17 10:00 10/27/17 18:00 Bactroban 2% Nasal BROOK 0.5 gm BID [facility]DIA Administration Nitroglycerin 1 ea 10/28/17 00:00 10/28/17 05:03 Nitro-Bid 2% Oint TOP 1 ea Q6 [facility]DIA Administration Ondansetron HCl 4 mg 10/27/17 19:35 10/28/17 00:50 Zofran Inj IVP 4 mg Q6H PRN Administration Nausea/Vomiting Pantoprazole Sodium 40 mg 10/25/17 18:00 10/28/17 05:03 Protonix Inj IVP 40 mg Q12H [facility] Administration Phenytoin 100 mg 10/18/17 20:45 10/28/17 04:07 Dilantin IVP 100 mg Q8H [facility]IA Administration - Patient Studies Lab Studies: Lab Studies 10/28/17 10/28/17 10/28/17 Range/Units 06:07 06:07 06:07 WBC 12.3 H (4.8-10.8) K/uL RBC 3.74 L (3.80-5.20) Mil/uL Hgb 10.9 L D (11.0-16.0) g/dL Hct 32.8 L (34.0-47.0) % MCV 87.6 D (81.0-99.0) fL MCH 29.0 (27.0-31.0) pg MCHC 33.1 (33.0-37.0) g/dL RDW 16.7 H (11.5-14.5) % Plt Count 359 D (130-400) K/uL MPV 8.4 (7.2-11.7) fL Neut % (Auto) 84.6 H (50.0-75.0) % Lymph % (Auto) 9.7 L (20.0-40.0) % Branch % (Auto) 4.4 (0.0-10.0) % Eos % (Auto) 0.4 (0.0-4.0) % Baso % (Auto) 0.9 (0.0-2.0) % Neut # (Auto) 10.4 H (1.8-7.0) K/uL Lymph # (Auto) 1.2 (1.0-4.3) K/uL Branch # (Auto) 0.5 (0.0-0.8) K/uL Eos # (Auto) 0.1 (0.0-0.7) K/uL Baso # (Auto) 0.1 (0.0-0.2) K/uL Neutrophils % (Manual) (50-75) % Lymphocytes % (Manual) (20-40) % Monocytes % (Manual) (0-10) % Platelet Estimate (NORMAL) Giant Platelets Hypochromasia (manual) Poikilocytosis (manual Anisocytosis (manual) Target Cells Ovalocytes Addi Cells Retic Count (0.5-1.5) % Sodium 138 (132-148) mmol/L Potassium 3.8 (3.6-5.2) mmol/L Chloride 103 (98-107) mmol/L Carbon Dioxide 22 (22-30) mmol/L Anion Gap 18 (10-20) BUN 13 (7-17) mg/dL Creatinine 0.9 (0.7-1.2) mg/dL Est GFR ( Amer) > 60 Est GFR (Non-Af Amer) > 60 POC Glucose (mg/dL) (65-110) mg/dL Random Glucose 400 H* (65-105) mg/dL Calcium 8.5 L (8.6-10.4) mg/dl Phosphorus 2.6 (2.5-4.5) mg/dL Magnesium 1.9 (1.6-2.3) mg/dL Ferritin ng/mL Total Bilirubin 0.5 (0.2-1.3) mg/dL AST 20 (14-36) U/L ALT 7 L (9-52) U/L Alkaline Phosphatase 110 (38-126) U/L Total Protein 6.3 (6.3-8.3) g/dL Albumin 2.8 L (3.5-5.0) g/dL Globulin 3.5 (2.2-3.9) gm/dL Albumin/Globulin Ratio 0.8 L (1.0-2.1) Vitamin B12 (239-931) pg/mL Folate ng/mL Vancomycin Trough 10.9 H (5.0-10.0) ug/mL Blood Type Antibody Screen ELISEO, Poly Interpret (NEGATIVE) 10/28/17 10/28/17 10/27/17 Range/Units 05:59 00:23 17:31 WBC (4.8-10.8) K/uL RBC (3.80-5.20) Mil/uL Hgb (11.0-16.0) g/dL Hct (34.0-47.0) % MCV (81.0-99.0) fL MCH (27.0-31.0) pg MCHC (33.0-37.0) g/dL RDW (11.5-14.5) % Plt Count (130-400) K/uL MPV (7.2-11.7) fL Neut % (Auto) (50.0-75.0) % Lymph % (Auto) (20.0-40.0) % Branch % (Auto) (0.0-10.0) % Eos % (Auto) (0.0-4.0) % Baso % (Auto) (0.0-2.0) % Neut # (Auto) (1.8-7.0) K/uL Lymph # (Auto) (1.0-4.3) K/uL Branch # (Auto) (0.0-0.8) K/uL Eos # (Auto) (0.0-0.7) K/uL Baso # (Auto) (0.0-0.2) K/uL Neutrophils % (Manual) (50-75) % Lymphocytes % (Manual) (20-40) % Monocytes % (Manual) (0-10) % Platelet Estimate (NORMAL) Giant Platelets Hypochromasia (manual) Poikilocytosis (manual Anisocytosis (manual) Target Cells Ovalocytes Crete Cells Retic Count (0.5-1.5) % Sodium (132-148) mmol/L Potassium (3.6-5.2) mmol/L Chloride (98-107) mmol/L Carbon Dioxide (22-30) mmol/L Anion Gap (10-20) BUN (7-17) mg/dL Creatinine (0.7-1.2) mg/dL Est GFR ( Amer) Est GFR (Non-Af Amer) POC Glucose (mg/dL) 390 H 359 H 206 H (65-110) mg/dL Random Glucose (65-105) mg/dL Calcium (8.6-10.4) mg/dl Phosphorus (2.5-4.5) mg/dL Magnesium (1.6-2.3) mg/dL Ferritin ng/mL Total Bilirubin (0.2-1.3) mg/dL AST (14-36) U/L ALT (9-52) U/L Alkaline Phosphatase (38-126) U/L Total Protein (6.3-8.3) g/dL Albumin (3.5-5.0) g/dL Globulin (2.2-3.9) gm/dL Albumin/Globulin Ratio (1.0-2.1) Vitamin B12 (239-931) pg/mL Folate ng/mL Vancomycin Trough (5.0-10.0) ug/mL Blood Type Antibody Screen ELISEO, Poly Interpret (NEGATIVE) 10/27/17 10/27/17 10/27/17 Range/Units 12:17 12:00 12:00 WBC (4.8-10.8) K/uL RBC (3.80-5.20) Mil/uL Hgb (11.0-16.0) g/dL Hct (34.0-47.0) % MCV (81.0-99.0) fL MCH (27.0-31.0) pg MCHC (33.0-37.0) g/dL RDW (11.5-14.5) % Plt Count (130-400) K/uL MPV (7.2-11.7) fL Neut % (Auto) (50.0-75.0) % Lymph % (Auto) (20.0-40.0) % Branch % (Auto) (0.0-10.0) % Eos % (Auto) (0.0-4.0) % Baso % (Auto) (0.0-2.0) % Neut # (Auto) (1.8-7.0) K/uL Lymph # (Auto) (1.0-4.3) K/uL Branch # (Auto) (0.0-0.8) K/uL Eos # (Auto) (0.0-0.7) K/uL Baso # (Auto) (0.0-0.2) K/uL Neutrophils % (Manual) (50-75) % Lymphocytes % (Manual) (20-40) % Monocytes % (Manual) (0-10) % Platelet Estimate (NORMAL) Giant Platelets Hypochromasia (manual) Poikilocytosis (manual Anisocytosis (manual) Target Cells Ovalocytes Addi Cells Retic Count 4.5 H D (0.5-1.5) % Sodium (132-148) mmol/L Potassium (3.6-5.2) mmol/L Chloride (98-107) mmol/L Carbon Dioxide (22-30) mmol/L Anion Gap (10-20) BUN (7-17) mg/dL Creatinine (0.7-1.2) mg/dL Est GFR ( Amer) Est GFR (Non-Af Amer) POC Glucose (mg/dL) (65-110) mg/dL Random Glucose (65-105) mg/dL Calcium (8.6-10.4) mg/dl Phosphorus (2.5-4.5) mg/dL Magnesium (1.6-2.3) mg/dL Ferritin 102.0 ng/mL Total Bilirubin (0.2-1.3) mg/dL AST (14-36) U/L ALT (9-52) U/L Alkaline Phosphatase (38-126) U/L Total Protein (6.3-8.3) g/dL Albumin (3.5-5.0) g/dL Globulin (2.2-3.9) gm/dL Albumin/Globulin Ratio (1.0-2.1) Vitamin B12 824 (239-931) pg/mL Folate 13.8 ng/mL Vancomycin Trough (5.0-10.0) ug/mL Blood Type A POSITIVE Antibody Screen Negative ELISEO, Poly Interpret Negative (NEGATIVE) 10/27/17 10/27/17 Range/Units 11:25 06:11 WBC (4.8-10.8) K/uL RBC (3.80-5.20) Mil/uL Hgb (11.0-16.0) g/dL Hct (34.0-47.0) % MCV (81.0-99.0) fL MCH (27.0-31.0) pg MCHC (33.0-37.0) g/dL RDW (11.5-14.5) % Plt Count (130-400) K/uL MPV (7.2-11.7) fL Neut % (Auto) (50.0-75.0) % Lymph % (Auto) (20.0-40.0) % Branch % (Auto) (0.0-10.0) % Eos % (Auto) (0.0-4.0) % Baso % (Auto) (0.0-2.0) % Neut # (Auto) (1.8-7.0) K/uL Lymph # (Auto) (1.0-4.3) K/uL Branch # (Auto) (0.0-0.8) K/uL Eos # (Auto) (0.0-0.7) K/uL Baso # (Auto) (0.0-0.2) K/uL Neutrophils % (Manual) 85 H (50-75) % Lymphocytes % (Manual) 7 L (20-40) % Monocytes % (Manual) 8 (0-10) % Platelet Estimate Normal (NORMAL) Giant Platelets Present Hypochromasia (manual) Slight Poikilocytosis (manual Slight Anisocytosis (manual) Slight Target Cells Slight Ovalocytes Slight Addi Cells Slight Retic Count (0.5-1.5) % Sodium (132-148) mmol/L Potassium (3.6-5.2) mmol/L Chloride (98-107) mmol/L Carbon Dioxide (22-30) mmol/L Anion Gap (10-20) BUN (7-17) mg/dL Creatinine (0.7-1.2) mg/dL Est GFR ( Amer) Est GFR (Non-Af Amer) POC Glucose (mg/dL) 260 H (65-110) mg/dL Random Glucose (65-105) mg/dL Calcium (8.6-10.4) mg/dl Phosphorus (2.5-4.5) mg/dL Magnesium (1.6-2.3) mg/dL Ferritin ng/mL Total Bilirubin (0.2-1.3) mg/dL AST (14-36) U/L ALT (9-52) U/L Alkaline Phosphatase (38-126) U/L Total Protein (6.3-8.3) g/dL Albumin (3.5-5.0) g/dL Globulin (2.2-3.9) gm/dL Albumin/Globulin Ratio (1.0-2.1) Vitamin B12 (239-931) pg/mL Folate ng/mL Vancomycin Trough (5.0-10.0) ug/mL Blood Type Antibody Screen ELISEO, Poly Interpret (NEGATIVE) Laboratory Results - last 24 hr 10/27/17 10/27/17 10/27/17 06:11 11:25 12:00 WBC RBC Hgb Hct MCV MCH MCHC RDW Plt Count MPV Neut % (Auto) Lymph % (Auto) Branch % (Auto) Eos % (Auto) Baso % (Auto) Neut # (Auto) Lymph # (Auto) Branch # (Auto) Eos # (Auto) Baso # (Auto) Neutrophils % (Manual) 85 H Lymphocytes % (Manual) 7 L Monocytes % (Manual) 8 Platelet Estimate Normal Giant Platelets Present Hypochromasia (manual) Slight Poikilocytosis (manual Slight Anisocytosis (manual) Slight Target Cells Slight Ovalocytes Slight Addi Cells Slight Retic Count 4.5 H D Sodium Potassium Chloride Carbon Dioxide Anion Gap BUN Creatinine Est GFR ( Amer) Est GFR (Non-Af Amer) POC Glucose (mg/dL) 260 H Random Glucose Calcium Phosphorus Magnesium Ferritin Total Bilirubin AST ALT Alkaline Phosphatase Total Protein Albumin Globulin Albumin/Globulin Ratio Vitamin B12 Folate Vancomycin Trough Blood Type Antibody Screen ELISEO, Poly Interpret 10/27/17 10/27/17 10/27/17 12:00 12:17 17:31 WBC RBC Hgb Hct MCV MCH MCHC RDW Plt Count MPV Neut % (Auto) Lymph % (Auto) Branch % (Auto) Eos % (Auto) Baso % (Auto) Neut # (Auto) Lymph # (Auto) Branch # (Auto) Eos # (Auto) Baso # (Auto) Neutrophils % (Manual) Lymphocytes % (Manual) Monocytes % (Manual) Platelet Estimate Giant Platelets Hypochromasia (manual) Poikilocytosis (manual Anisocytosis (manual) Target Cells Ovalocytes Addi Cells Retic Count Sodium Potassium Chloride Carbon Dioxide Anion Gap BUN Creatinine Est GFR ( Amer) Est GFR (Non-Af Amer) POC Glucose (mg/dL) 206 H Random Glucose Calcium Phosphorus Magnesium Ferritin 102.0 Total Bilirubin AST ALT Alkaline Phosphatase Total Protein Albumin Globulin Albumin/Globulin Ratio Vitamin B12 824 Folate 13.8 Vancomycin Trough Blood Type A POSITIVE Antibody Screen Negative ELISEO, Poly Interpret Negative 10/28/17 10/28/17 10/28/17 00:23 05:59 06:07 WBC RBC Hgb Hct MCV MCH MCHC RDW Plt Count MPV Neut % (Auto) Lymph % (Auto) Branch % (Auto) Eos % (Auto) Baso % (Auto) Neut # (Auto) Lymph # (Auto) Branch # (Auto) Eos # (Auto) Baso # (Auto) Neutrophils % (Manual) Lymphocytes % (Manual) Monocytes % (Manual) Platelet Estimate Giant Platelets Hypochromasia (manual) Poikilocytosis (manual Anisocytosis (manual) Target Cells Ovalocytes Crete Cells Retic Count Sodium Potassium Chloride Carbon Dioxide Anion Gap BUN Creatinine Est GFR ( Amer) Est GFR (Non-Af Amer) POC Glucose (mg/dL) 359 H 390 H Random Glucose Calcium Phosphorus Magnesium Ferritin Total Bilirubin AST ALT Alkaline Phosphatase Total Protein Albumin Globulin Albumin/Globulin Ratio Vitamin B12 Folate Vancomycin Trough 10.9 H Blood Type Antibody Screen ELISEO, Poly Interpret 10/28/17 10/28/17 06:07 06:07 WBC 12.3 H RBC 3.74 L Hgb 10.9 L D Hct 32.8 L MCV 87.6 D MCH 29.0 MCHC 33.1 RDW 16.7 H Plt Count 359 D MPV 8.4 Neut % (Auto) 84.6 H Lymph % (Auto) 9.7 L Branch % (Auto) 4.4 Eos % (Auto) 0.4 Baso % (Auto) 0.9 Neut # (Auto) 10.4 H Lymph # (Auto) 1.2 Branch # (Auto) 0.5 Eos # (Auto) 0.1 Baso # (Auto) 0.1 Neutrophils % (Manual) Lymphocytes % (Manual) Monocytes % (Manual) Platelet Estimate Giant Platelets Hypochromasia (manual) Poikilocytosis (manual Anisocytosis (manual) Target Cells Ovalocytes Crete Cells Retic Count Sodium 138 Potassium 3.8 Chloride 103 Carbon Dioxide 22 Anion Gap 18 BUN 13 Creatinine 0.9 Est GFR ( Amer) > 60 Est GFR (Non-Af Amer) > 60 POC Glucose (mg/dL) Random Glucose 400 H* Calcium 8.5 L Phosphorus 2.6 Magnesium 1.9 Ferritin Total Bilirubin 0.5 AST 20 ALT 7 L Alkaline Phosphatase 110 Total Protein 6.3 Albumin 2.8 L Globulin 3.5 Albumin/Globulin Ratio 0.8 L Vitamin B12 Folate Vancomycin Trough Blood Type Antibody Screen ELISEO, Poly Interpret Fingerstick Blood Sugar Results: 390 Critical Care Progress Note - Nutrition Nutrition: Nutrition Category Date Time Status Liquid Diet [DIET] Diets 10/27/17 Breakfast Active
[2017-10-28 09:10] LABS: ANISOCYTOSIS SLIGHT; LYMPHOCYTE 9 % (20-40); MONOCYTE 6 % (0-10); NEUTROPHIL 85 % (50-75); PLATELET ESTIMATE NORMAL (NORMAL); TOTAL CELLS COUNTED 100
[2017-10-28 09:11] LABS: OVALOCYTES SLIGHT; POIKILOCYTOSIS SLIGHT; TEARDROP CELLS SLIGHT
[2017-10-28] MEDS: Mupirocin 2% Ointment (NASAL) NAS SCH ×2 (10:04→17:41)
--- NOTE | 2017-10-28 13:03 | CP.PCM.PN ---
<Adelita Scales - Last Filed: 10/28/17 13:04> Subjective - Date & Time of Evaluation Date of Evaluation: 10/28/17 Time of Evaluation: 10:00 - Subjective Subjective: GI Fellow PGY4 Progress Note Patient seen and examined bedside this morning. Pt has a BM last night, no melena or rectal bleeding reported. No nausea, vomiting or overt GI blood loss since surgery. Pt is drowsy received pain medication this am. ROS: A 12 system ROS performed and negative except where stated. Objective - Vital Signs/Intake and Output Vital Signs (last 24 hours): Temp Pulse Resp BP Pulse Ox 98.6 F 99 H 11 L 128/56 L 99 10/28/17 09:36 10/28/17 07:03 10/28/17 07:03 10/28/17 12:08 10/28/17 09:36 Intake and Output: 10/28/17 10/28/17 06:59 18:59 Intake Total 1381.3 224 Output Total 1500 Balance 1381.3 -1276 - Medications Medications: Current Medications Amlodipine Besylate (Norvasc) 10 mg PO DAILY [facility] Last Admin: 10/20/17 09:57 Dose: Not Given Enalaprilat (Vasotec) 1.25 mg IV Q6 [facility] Last Admin: 10/28/17 12:08 Dose: 1.25 mg Hydralazine HCl (Apresoline) 10 mg IVP Q6H PRN PRN Reason: Hypertension Last Admin: 10/28/17 04:06 Dose: 10 mg Vancomycin/Sodium Chloride (Vancomycin 1 Gm/Ns 200 Ml) 1 gm in 200 mls @ 133 mls/hr IVPB Q24H [facility] PRN Reason: Protocol Stop: 10/30/17 18:01 Last Admin: 10/27/17 18:02 Dose: 133 mls/hr Insulin Human Regular 10 unit/ (Amino Acids) 1,000.1 mls @ 104 mls/hr IV .[id number] ONE Stop: 10/28/17 13:19 Last Admin: 10/28/17 04:00 Dose: 104 mls/hr Folic Acid 1 mg/ Sodium (Chloride) 100.2 mls @ 60 mls/hr IV DAILY [facility] Last Admin: 10/28/17 09:44 Dose: 60 mls/hr Insulin Human Regular 10 unit/Multivitamins/Vitamin C 10 ml / Amino Acids 1, 010.1 mls @ 60 mls/hr IV .[id number] [facility] Stop: 10/29/17 10:00 Insulin Human Regular 10 unit/ (Amino Acids) 1,000.1 mls @ 60 mls/hr IV .[id number] [facility] Stop: 10/29/17 18:00 Insulin Aspart (Novolog) 0 unit SC Q6 [facility] PRN Reason: Protocol Last Admin: 10/28/17 12:09 Dose: 4 unit Metoprolol Tartrate (Lopressor) 5 mg IVP Q6H [facility] Last Admin: 10/28/17 09:33 Dose: 5 mg Morphine Sulfate (Morphine) 2 mg IV Q4H PRN PRN Reason: Pain, MODERATE (4-7) Last Admin: 10/25/17 15:32 Dose: 2 mg Morphine Sulfate (Morphine) 4 mg IVP Q3H PRN PRN Reason: Pain, severe (8-10) Last Admin: 10/28/17 02:18 Dose: 4 mg Mupirocin (Bactroban 2% Nasal) 0.5 gm BROOK BID [facility] Last Admin: 10/28/17 10:04 Dose: 0.5 gm Nitroglycerin (Nitro-Bid 2% Oint) 1 ea TOP Q6 [facility] Last Admin: 10/28/17 12:10 Dose: 1 ea Ondansetron HCl (Zofran Inj) 4 mg IVP Q6H PRN PRN Reason: Nausea/Vomiting Last Admin: 10/28/17 00:50 Dose: 4 mg Pantoprazole Sodium (Protonix Inj) 40 mg IVP Q12H [facility] Last Admin: 10/28/17 05:03 Dose: 40 mg Phenytoin (Dilantin) 100 mg IVP Q8H [facility] Last Admin: 10/28/17 04:07 Dose: 100 mg - Labs Labs: 10/28/17 06:07 10/28/17 06:07 PT 12.8 SECONDS (9.7-12.2) H 10/24/17 06:22 INR 1.1 10/24/17 06:22 APTT 30 SECONDS (21-34) 10/24/17 06:22 - Constitutional Appears: Non-toxic, No Acute Distress - Eye Exam Eye Exam: EOMI, Normal appearance Pupil Exam: PERRL - ENT Exam ENT Exam: Mucous Membranes Dry - Respiratory Exam Respiratory Exam: Clear to Ausculation Bilateral, NORMAL BREATHING PATTERN - Cardiovascular Exam Cardiovascular Exam: RRR, +S1, +S2 - GI/Abdominal Exam GI & Abdominal Exam: Soft, Tenderness, Normal Bowel Sounds. absent: Distended, Guarding - Rectal Exam Rectal Exam: Deferred - Extremities Exam Extremities Exam: Full ROM - Neurological Exam Neurological Exam: Alert, Awake, Oriented x3 - Psychiatric Exam Psychiatric exam: Normal Affect, Normal Mood - Skin Skin Exam: Dry, Intact, Normal Color, Warm Assessment and Plan - Assessment and Plan (Free Text) Assessment: Patient is a 57yo female with history of peripheral vascular disease and concern for left great toe gangrene, CAD, anemia who presented to the ED referred by her rd project manager for concern of osteomyelitis. 1. Anemia 2. S/P small bowel resection 3. H/O mitral/aortic mechanical valve replacement previously on anticoagulation 4. Left 1st toe gangrene 5. CAD 6. PVD Plan: -Continue supportive care with pain control and anti-emetics -Positive bowel movements, having BM -HGB stable without overt blood loss -Hematology recommendations appreciated -Protonix -Post-op care per surgical team -Please call with any questions or concerns <Srikanth Robison - Last Filed: 10/28/17 13:55> Objective - Vital Signs/Intake and Output Vital Signs (last 24 hours): Temp Pulse Resp BP Pulse Ox 98.6 F 88 12 131/54 L 100 10/28/17 09:36 10/28/17 13:03 10/28/17 13:03 10/28/17 13:03 10/28/17 13:03 Intake and Output: 10/28/17 10/28/17 06:59 18:59 Intake Total 1381.3 996 Output Total 1900 Balance 1381.3 -904 - Medications Medications: Current Medications Amlodipine Besylate (Norvasc) 10 mg PO DAILY [facility] Last Admin: 10/20/17 09:57 Dose: Not Given Enalaprilat (Vasotec) 1.25 mg IV Q6 [facility] Last Admin: 10/28/17 12:08 Dose: 1.25 mg Hydralazine HCl (Apresoline) 10 mg IVP Q6H PRN PRN Reason: Hypertension Last Admin: 10/28/17 04:06 Dose: 10 mg Vancomycin/Sodium Chloride (Vancomycin 1 Gm/Ns 200 Ml) 1 gm in 200 mls @ 133 mls/hr IVPB Q24H [facility] PRN Reason: Protocol Stop: 10/30/17 18:01 Last Admin: 10/27/17 18:02 Dose: 133 mls/hr Folic Acid 1 mg/ Sodium (Chloride) 100.2 mls @ 60 mls/hr IV DAILY [facility] Last Admin: 10/28/17 09:44 Dose: 60 mls/hr Insulin Human Regular 10 unit/Multivitamins/Vitamin C 10 ml / Amino Acids 1, 010.1 mls @ 60 mls/hr IV .[id number] [facility] Stop: 10/29/17 10:00 Insulin Human Regular 10 unit/ (Amino Acids) 1,000.1 mls @ 60 mls/hr IV .[id number] [facility] Stop: 10/29/17 18:00 Insulin Aspart (Novolog) 0 unit SC Q6 [facility] PRN Reason: Protocol Last Admin: 10/28/17 12:09 Dose: 4 unit Metoprolol Tartrate (Lopressor) 5 mg IVP Q6H [facility] Last Admin: 10/28/17 09:33 Dose: 5 mg Morphine Sulfate (Morphine) 2 mg IV Q4H PRN PRN Reason: Pain, MODERATE (4-7) Last Admin: 10/25/17 15:32 Dose: 2 mg Morphine Sulfate (Morphine) 4 mg IVP Q3H PRN PRN Reason: Pain, severe (8-10) Last Admin: 10/28/17 02:18 Dose: 4 mg Mupirocin (Bactroban 2% Nasal) 0.5 gm BROOK BID [facility] Last Admin: 10/28/17 10:04 Dose: 0.5 gm Nitroglycerin (Nitro-Bid 2% Oint) 1 ea TOP Q6 [facility] Last Admin: 10/28/17 12:10 Dose: 1 ea Ondansetron HCl (Zofran Inj) 4 mg IVP Q6H PRN PRN Reason: Nausea/Vomiting Last Admin: 10/28/17 00:50 Dose: 4 mg Pantoprazole Sodium (Protonix Inj) 40 mg IVP Q12H [facility] Last Admin: 10/28/17 05:03 Dose: 40 mg Phenytoin (Dilantin) 100 mg IVP Q8H [facility] Last Admin: 10/28/17 13:45 Dose: 100 mg - Labs Labs: 10/28/17 06:07 10/28/17 06:07 PT 12.8 SECONDS (9.7-12.2) H 10/24/17 06:22 INR 1.1 10/24/17 06:22 APTT 30 SECONDS (21-34) 10/24/17 06:22 Attending/Attestation - Attestation I have personally seen and examined this patient.: Yes I have fully participated in the care of the patient.: Yes I have reviewed all pertinent clinical information, including history, physical exam and plan: Yes Notes (Text): 10/28/17 13:52 I have seen and examined patient with GI fellow. No acute events overnight. Sitiing in chair. She complains of abdominal pain at surgical site but otherwise denies nausea, vomiting, fever/chills. No bowel movements or flatus. Total 13 units PRBC transfused with no overt blood loss, continue to monitor. Appreciate hematology consult and noted. Continue with PPI therapy. Follow up surgical recommendations. No further GI intervention needed. Will sign off now. Thank you for letting us participate in the care of your patient
[2017-10-28] MEDS ORDERED: PPN #3 IV SCH (13:20)
[2017-10-28] MEDS: Vancomycin 1 gm/NS 200 ml 1 GM/200 ML BAG IVPB SCH (17:45)
[2017-10-28] MEDS ORDERED: PPN IV SCH (18:00)
--- NOTE | 2017-10-28 21:29 | PN ---
DATE: SUBJECTIVE: The patient denies any abdominal pain or chest pain. No reported melena. No reported ventricular tachycardia. The patient is noted to be hypertensive and required IV Apresoline 10 mg daily yesterday. PHYSICAL EXAMINATION: VITAL SIGNS: Blood pressure 128/56, heart rate 88, respirations 11, temperature 98.6. HEENT: Pale conjunctivae. CHEST: Clear. HEART: S1, S2 regular. Grade 2/6 ejection systolic murmur over the left sternal border. ABDOMEN: Absent bowel sounds. LABORATORY DATA: Today's SMA-7 is within normal limits except for glucose of 400. Today's hemoglobin and hematocrit 10.9 and 32.8, white count 12.3, platelet count 359,000. ASSESSMENT: 1. Status post distal small bowel resection for lower gastrointestinal bleeding. 2. Hypertension. 3. Status post mitral and aortic valve replacement. 4. Peripheral vascular disease, status post recent left lower extremity stenting, angio ischemic symptoms. 5. Anemia. 6. Seizure disorder. RECOMMENDATIONS: Continue current IV hydralazine 10 mg p.r.n. every 6 hours. Continue current IV vancomycin 200 mg daily and continue enalapril 1.25 mg every 6 hours. I discussed the case with information technology internship Dr. Marie regarding initiating subcutaneous heparin 5000 units every 8 hours once approved by the surgical team. As per Dr. Marie, anticoagulation was discussed earlier with the surgical team, however, no definite recommendation of anticoagulation was given so far. Kraig Sheldon MD
--- NOTE | 2017-10-28 23:13 | CP.PCM.PN ---
Subjective - Date & Time of Evaluation Date of Evaluation: 10/28/17 Time of Evaluation: 19:35 - Subjective Subjective: pt seen and examined, pt is recovering, sugars are going up and down, s/p GI bleed Objective - Vital Signs/Intake and Output Vital Signs (last 24 hours): Temp Pulse Resp BP Pulse Ox 98.7 F 97 H 13 164/60 H 98 10/28/17 21:00 10/28/17 22:00 10/28/17 16:03 10/28/17 21:55 10/28/17 22:00 Intake and Output: 10/28/17 10/29/17 18:59 06:59 Intake Total 1796 180 Output Total 2500 100 Balance -704 80 - Medications Medications: Current Medications Amlodipine Besylate (Norvasc) 10 mg PO DAILY [facility] Last Admin: 10/20/17 09:57 Dose: Not Given Enalaprilat (Vasotec) 1.25 mg IV Q6 [facility] Last Admin: 10/28/17 18:19 Dose: Not Given Heparin Sodium (Porcine) (Heparin) 5,000 units SC Q8 [facility] Last Admin: 10/28/17 21:08 Dose: 5,000 units Hydralazine HCl (Apresoline) 10 mg IVP Q6H PRN PRN Reason: Hypertension Last Admin: 10/28/17 21:08 Dose: 10 mg Vancomycin/Sodium Chloride (Vancomycin 1 Gm/Ns 200 Ml) 1 gm in 200 mls @ 133 mls/hr IVPB Q24H [facility] PRN Reason: Protocol Stop: 10/30/17 18:01 Last Admin: 10/28/17 17:45 Dose: 133 mls/hr Folic Acid 1 mg/ Sodium (Chloride) 100.2 mls @ 60 mls/hr IV DAILY [facility] Last Admin: 10/28/17 09:44 Dose: 60 mls/hr Insulin Human Regular 10 unit/Multivitamins/Vitamin C 10 ml / Amino Acids 1, 010.1 mls @ 60 mls/hr IV .[id number] [facility] Stop: 10/29/17 10:00 Last Admin: 10/28/17 17:43 Dose: 60 mls/hr Insulin Human Regular 10 unit/ (Amino Acids) 1,000.1 mls @ 60 mls/hr IV .[id number] [facility] Stop: 10/29/17 18:00 Insulin Aspart (Novolog) 0 unit SC Q6 [facility] PRN Reason: Protocol Last Admin: 10/28/17 18:19 Dose: 1 unit Metoprolol Tartrate (Lopressor) 5 mg IVP Q6H [facility] Last Admin: 10/28/17 20:39 Dose: 5 mg Morphine Sulfate (Morphine) 4 mg IVP Q3H PRN PRN Reason: Pain, severe (8-10) Last Admin: 10/28/17 02:18 Dose: 4 mg Morphine Sulfate (Morphine) 2 mg IVP Q4 PRN PRN Reason: Pain, moderate (4-7) Last Admin: 10/28/17 20:40 Dose: 2 mg Mupirocin (Bactroban 2% Nasal) 0.5 gm BROOK BID [facility] Last Admin: 10/28/17 17:41 Dose: 0.5 gm Nitroglycerin (Nitro-Bid 2% Oint) 1 ea TOP Q6 [facility] Last Admin: 10/28/17 17:43 Dose: 1 ea Ondansetron HCl (Zofran Inj) 4 mg IVP Q6H PRN PRN Reason: Nausea/Vomiting Last Admin: 10/28/17 20:40 Dose: 4 mg Pantoprazole Sodium (Protonix Inj) 40 mg IVP Q12H [facility] Last Admin: 10/28/17 17:42 Dose: 40 mg Phenytoin (Dilantin) 100 mg IVP Q8H [facility] Last Admin: 10/28/17 21:08 Dose: 100 mg - Labs Labs: 10/28/17 06:07 10/28/17 06:07 PT 12.8 SECONDS (9.7-12.2) H 10/24/17 06:22 INR 1.1 10/24/17 06:22 APTT 30 SECONDS (21-34) 10/24/17 06:22 - Constitutional Appears: No Acute Distress - Head Exam Head Exam: ATRAUMATIC, NORMAL INSPECTION, NORMOCEPHALIC - Eye Exam Eye Exam: EOMI, Normal appearance, PERRL Pupil Exam: NORMAL ACCOMODATION, PERRL - Respiratory Exam Respiratory Exam: Clear to Ausculation Bilateral, NORMAL BREATHING PATTERN - Cardiovascular Exam Cardiovascular Exam: REGULAR RHYTHM, +S1, +S2. absent: Murmur - GI/Abdominal Exam GI & Abdominal Exam: Soft, Normal Bowel Sounds. absent: Tenderness Assessment and Plan (1) GI bleed Status: Acute (2) Anemia Status: Acute (3) Toe gangrene Status: Acute (4) CAD (coronary artery disease) Status: Chronic
[2017-10-29] MEDS: (Novolog) Insulin Aspart, Recombinant 100 u/ml 10 ml vial SC SCH ×4 (00:41→18:30)
[2017-10-29] MEDS: Morphine 4 MG/ML VIAL IVP PRN ×3 (00:41→23:56)
[2017-10-29] MEDS: Metoprolol 1 mg/ml Inj IVP SCH ×4 (02:50→21:00)
--- NOTE | 2017-10-29 03:37 | CP.PCM.PN ---
Subjective - Date & Time of Evaluation Date of Evaluation: 10/28/17 Time of Evaluation: 16:30 - Subjective Subjective: Feeling better. Objective - Vital Signs/Intake and Output Vital Signs (last 24 hours): Temp Pulse Resp BP Pulse Ox 98.4 F 90 13 177/76 H 98 10/29/17 00:00 10/29/17 03:00 10/28/17 16:03 10/29/17 03:00 10/29/17 03:00 Intake and Output: 10/28/17 10/29/17 18:59 06:59 Intake Total 1796 480 Output Total 2500 400 Balance -704 80 - Medications Medications: Current Medications Amlodipine Besylate (Norvasc) 10 mg PO DAILY [facility] Last Admin: 10/20/17 09:57 Dose: Not Given Enalaprilat (Vasotec) 1.25 mg IV Q6 [facility] [place] Last Admin: 10/28/17 23:34 Dose: 1.25 mg Heparin Sodium (Porcine) (Heparin) 5,000 units SC Q8 [facility] [place] Last Admin: 10/28/17 21:08 Dose: 5,000 units Hydralazine HCl (Apresoline) 10 mg IVP Q6H PRN PRN Reason: Hypertension Last Admin: 10/28/17 21:08 Dose: 10 mg Vancomycin/Sodium Chloride (Vancomycin 1 Gm/Ns 200 Ml) 1 gm in 200 mls @ 133 mls/hr IVPB Q24H [facility] [place] PRN Reason: Protocol Stop: 10/30/17 18:01 Last Admin: 10/28/17 17:45 Dose: 133 mls/hr Folic Acid 1 mg/ Sodium (Chloride) 100.2 mls @ 60 mls/hr IV DAILY [facility] Last Admin: 10/28/17 09:44 Dose: 60 mls/hr Insulin Human Regular 10 unit/Multivitamins/Vitamin C 10 ml / Amino Acids 1, 010.1 mls @ 60 mls/hr IV .[id number] [facility] [place] Stop: 10/29/17 10:00 Last Admin: 10/28/17 17:43 Dose: 60 mls/hr Insulin Human Regular 10 unit/ (Amino Acids) 1,000.1 mls @ 60 mls/hr IV .[id number] [facility] Stop: 10/29/17 18:00 Insulin Aspart (Novolog) 0 unit SC Q6 [facility] [place] PRN Reason: Protocol Last Admin: 10/29/17 00:41 Dose: 4 unit Metoprolol Tartrate (Lopressor) 5 mg IVP Q6H [facility] Last Admin: 10/29/17 02:50 Dose: 5 mg Morphine Sulfate (Morphine) 4 mg IVP Q3H PRN PRN Reason: Pain, severe (8-10) Last Admin: 10/28/17 02:18 Dose: 4 mg Morphine Sulfate (Morphine) 2 mg IVP Q4 PRN PRN Reason: Pain, moderate (4-7) Last Admin: 10/29/17 00:41 Dose: 2 mg Mupirocin (Bactroban 2% Nasal) 0.5 gm BROOK BID [facility] Last Admin: 10/28/17 17:41 Dose: 0.5 gm Nitroglycerin (Nitro-Bid 2% Oint) 1 ea TOP Q6 [facility] [place] Last Admin: 10/28/17 23:34 Dose: 1 ea Ondansetron HCl (Zofran Inj) 4 mg IVP Q6H PRN PRN Reason: Nausea/Vomiting Last Admin: 10/28/17 20:40 Dose: 4 mg Pantoprazole Sodium (Protonix Inj) 40 mg IVP Q12H [facility] [place] Last Admin: 10/28/17 17:42 Dose: 40 mg Phenytoin (Dilantin) 100 mg IVP Q8H [facility] Last Admin: 10/28/17 21:08 Dose: 100 mg - Labs Labs: 10/28/17 06:07 10/28/17 06:07 PT 12.8 SECONDS (9.7-12.2) H 10/24/17 06:22 INR 1.1 10/24/17 06:22 APTT 30 SECONDS (21-34) 10/24/17 06:22 - Head Exam Head Exam: ATRAUMATIC - Eye Exam Eye Exam: Normal appearance - ENT Exam ENT Exam: Mucous Membranes Dry - Respiratory Exam Respiratory Exam: NORMAL BREATHING PATTERN - Cardiovascular Exam Cardiovascular Exam: +S1, +S2 - GI/Abdominal Exam GI & Abdominal Exam: Normal Bowel Sounds Assessment and Plan (1) Anemia Assessment & Plan: multifactorial; hypoproliferative erythroid response likely chronic iron deficiency from chronic slow GI blood loss while on anticoagulation exacerbated by acute faster GI bleeding 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
[2017-10-29] MEDS: Enalaprilat 2.5 MG/2 ML IV SCH ×4 (05:20→23:57)
[2017-10-29] MEDS: Nitroglycerin 2% Ointment Foilpak UD TOP SCH ×4 (05:21→23:57)
[2017-10-29] MEDS: Phenytoin 100 mg/2 ml Inj IVP SCH ×3 (05:21→21:01)
[2017-10-29 06:21] LABS: BASO # 0.1 K/uL (0.0-0.2); EOS # 0.2 K/uL (0.0-0.7); EOS % 1.7 % (0.0-4.0); HEMOGLOBIN 10.6 g/dL (11.0-16.0); LYMPH % 10.6 % (20.0-40.0); MEAN CELL VOLUME 86.7 fL (81.0-99.0); MEAN CORPUSCULAR HEMOGLOBIN 29.3 pg (27.0-31.0); MEAN CORPUSCULAR HGB CONC 33.8 g/dL (33.0-37.0); MEAN PLATELET VOLUME 8.2 fL (7.2-11.7); MONO # 0.6 K/uL (0.0-0.8); MONO % 6.9 % (0.0-10.0); NEUT # 7.3 K/uL (1.8-7.0); NEUT % 79.8 % (50.0-75.0); NRBC % 0.1 % (0.0-2.0); RBC 3.62 Mil/uL (3.80-5.20); RED CELL DISTRIBUTION WIDTH 15.9 % (11.5-14.5); WHITE BLOOD COUNT 9.2 K/uL (4.8-10.8)
[2017-10-29 06:26] LABS: PROTHROMBIN TIME 11.1 SECONDS (9.7-12.2)
[2017-10-29 06:36] LABS: ALB/GLOB RATIO 0.8 (1.0-2.1); ALBUMIN 2.7 g/dL (3.5-5.0); ALT/SGPT < 6 U/L (9-52); AST/SGOT 19 U/L (14-36); BLOOD UREA NITROGEN 16 mg/dL (7-17); CALCIUM 8.5 mg/dl (8.6-10.4); GFR AFRICAN-AMERICAN > 60; GFR NON-AFRICAN AMERICAN > 60
--- NOTE | 2017-10-29 08:08 | CP.CCUPN ---
CCU Subjective - Physician Review Events Since Last Encounter (Free Text): 10/29/17 08:07 57-year-old female with a history of hypertension and hyperlipidemia mechanical mitral, aortic valve replacement Patient was on anticoagulation, admitted to the intensive great with recurrent GI bleed Patient underwent 2 times upper endoscopy, colonoscopy. Finally patient underwent a small bowel resection, for an occult GI bleed. Jocelyn she does not have any active bleeding. Hemoglobin is stable. On examination: Vital signs stable. Chest good air entry irregular heart sound nontender abdomen Hemoglobin is stable. Elevated blood sugar noted, well-controlled. anticoagulation needs to be addressed again continue to monitor I spoke to the wearing apparel shaker, currently started on DVT prophylaxis Assessment and recommendation: 57-year-old female with a history of hypertension, hyperlipidemia, mitral and aortic valve replacement mechanical Will discuss with the surgery for anticoagulation. will discuss with the surgery and will follow the patient CCU Objective - Vital Signs / Intake & Output Vital Signs (Last 4 hours): Vital Signs Temp Pulse BP Pulse Ox 10/29/17 07:00 108 H 97 10/29/17 06:54 162/63 H 10/29/17 06:40 98 F 10/29/17 06:00 97 H 10/29/17 05:54 181/70 H 10/29/17 05:48 96 H 171/74 H 99 10/29/17 05:34 192/78 H 10/29/17 05:20 190/77 H 10/29/17 04:54 96 H 190/77 H 98 Intake and Output (Last 8hrs): Intake & Output 10/28/17 10/29/17 10/29/17 22:59 06:59 14:59 Intake Total 740 540 Output Total 700 900 Balance 40 -360 Weight 209 lb Intake: Intake, IV Amount 620 540 Purple port Right PICC 200 line Red Port Right Picc line 420 540 Oral 120 Output: Urine 700 900 Urine, Voided 700 900 Other: # Voids Urine, Voided 1 # Bowel Movements 1 - Physical Exam Head: Positive for: Atraumatic, Normocephalic Pupils: Positive for: PERRL Extroacular Muscles: Positive for: EOMI Conjunctiva: Positive for: Normal Mouth: Positive for: Moist Mucous Membranes Nose (External): Positive for: Other (NGT in place) Neck: Positive for: Normal Range of Motion Respiratory/Chest: Positive for: Clear to Auscultation, Good Air Exchange. Negative for: Respiratory Distress, Accessory Muscle Use Cardiovascular: Positive for: Regular Rate and Rhythm, Normal S1, S2, Other ( systolic murmur). Negative for: Tachycardic Abdomen: Positive for: Normal Bowel Sounds. Negative for: Tenderness, Distention Upper Extremity: Positive for: Normal Inspection Lower Extremity: Positive for: Other (Right toe dressing intact) Neurological: Positive for: GCS=15 Skin: Positive for: Warm, Dry, Normal Color Psychiatric: Positive for: Alert, Oriented x 3 - Medications Active Medications: Active Medications Generic Name Dose Route Start Last Admin Trade Name Freq PRN Reason Stop Dose Admin Amlodipine Besylate 10 mg 10/15/17 10:00 10/20/17 09:57 Norvasc PO Not Given DAILY [facility] Enalaprilat 1.25 mg 10/27/17 12:26 10/29/17 05:20 Vasotec IV 1.25 mg Q6 [facility] Administration Ferric Sodium Gluconate Complex 125 mg 10/29/17 10:00 Ferrlecit IVPB 11/06/17 10:01 DAILY [facility] Heparin Sodium (Porcine) 5,000 units 10/28/17 22:00 10/29/17 05:21 Heparin SC 5,000 units Q8 [facility] Administration Hydralazine HCl 10 mg 10/28/17 02:05 10/29/17 06:30 Apresoline IVP 10 mg Q6H PRN Administration Hypertension Vancomycin/Sodium Chloride 1 gm in 200 mls @ 133 mls/hr 10/25/17 18:00 17:45 Vancomycin 1 Gm/Ns 200 Ml IVPB 10/30/17 18:01 133 mls/hr Q24H [facility] Administration Protocol Folic Acid 1 mg/ Sodium 100.2 mls @ 60 mls/hr 10/27/17 10:00 10/28/17 09:44 Chloride IV 60 mls/hr DAILY [facility] Administration Insulin Human Regular 10 unit/ 1,010.1 mls @ 60 mls/hr 10/28/17 18:00 17:43 Multivitamins/Vitamin C 10 ml IV 10/29/17 10:00 60 mls/hr / Amino Acids .[id number] [facility] Administration Insulin Human Regular 10 unit/ 1,000.1 mls @ 60 mls/hr 10/29/17 10:00 Amino Acids IV 10/29/17 18:00 .[id number] [facility] Potassium Chloride 20 meq in 100 mls @ 50 mls/hr 10/29/17 08:07 Potassium Chloride 20 Meq/100 Ml IVPB 10/29/17 10:06 ONCE ONE Insulin Aspart 0 unit 10/26/17 18:00 10/29/17 06:30 Novolog SC 4 unit Q6 [facility] Administration Protocol Metoprolol Tartrate 5 mg 10/26/17 21:15 10/29/17 02:50 Lopressor IVP 5 mg Q6H [facility] Administration Morphine Sulfate 4 mg 10/26/17 11:15 10/28/17 02:18 Morphine IVP 4 mg Q3H PRN Administration Pain, severe (8-10) Morphine Sulfate 2 mg 10/28/17 20:19 10/29/17 00:41 Morphine IVP 2 mg Q4 PRN Administration Pain, moderate (4-7) Mupirocin 0.5 gm 10/21/17 10:00 10/28/17 17:41 Bactroban 2% Nasal BROOK 0.5 gm BID [facility] Administration Nitroglycerin 1 ea 10/28/17 00:00 10/29/17 05:21 Nitro-Bid 2% Oint TOP 1 ea Q6 [facility] Administration Ondansetron HCl 4 mg 10/27/17 19:35 10/28/17 20:40 Zofran Inj IVP 4 mg Q6H PRN Administration Nausea/Vomiting Pantoprazole Sodium 40 mg 10/25/17 18:00 10/29/17 05:23 Protonix Inj IVP 40 mg Q12H [facility] Administration Phenytoin 100 mg 10/18/17 20:45 10/29/17 05:21 Dilantin IVP 100 mg Q8H [facility] Administration - Patient Studies Lab Studies: Lab Studies 10/29/17 10/29/17 10/29/17 Range/Units 06:10 06:10 06:10 WBC 9.2 (4.8-10.8) K/uL RBC 3.62 L (3.80-5.20) Mil/uL Hgb 10.6 L (11.0-16.0) g/dL Hct 31.4 L (34.0-47.0) % MCV 86.7 (81.0-99.0) fL MCH 29.3 (27.0-31.0) pg MCHC 33.8 (33.0-37.0) g/dL RDW 15.9 H (11.5-14.5) % Plt Count 352 (130-400) K/uL MPV 8.2 (7.2-11.7) fL Neut % (Auto) 79.8 H (50.0-75.0) % Lymph % (Auto) 10.6 L (20.0-40.0) % [place] % (Auto) 6.9 (0.0-10.0) % Eos % (Auto) 1.7 (0.0-4.0) % Baso % (Auto) 1.0 (0.0-2.0) % Neut # (Auto) 7.3 H (1.8-7.0) K/uL Lymph # (Auto) 1.0 (1.0-4.3) K/uL [place] # (Auto) 0.6 (0.0-0.8) K/uL Eos # (Auto) 0.2 (0.0-0.7) K/uL Baso # (Auto) 0.1 (0.0-0.2) K/uL Neutrophils % (Manual) (50-75) % Lymphocytes % (Manual) (20-40) % Monocytes % (Manual) (0-10) % Platelet Estimate (NORMAL) Poikilocytosis (manual Anisocytosis (manual) Tear Drop Cells Ovalocytes PT 11.1 (9.7-12.2) SECONDS INR 1.0 APTT 29 (21-34) SECONDS Sodium 138 (132-148) mmol/L Potassium 3.3 L (3.6-5.2) mmol/L Chloride 105 (98-107) mmol/L Carbon Dioxide 24 (22-30) mmol/L Anion Gap 12 (10-20) BUN 16 (7-17) mg/dL Creatinine 0.8 (0.7-1.2) mg/dL Est GFR ( Amer) > 60 Est GFR (Non-Af Amer) > 60 POC Glucose (mg/dL) (65-110) mg/dL Random Glucose 229 H (65-105) mg/dL Calcium 8.5 L (8.6-10.4) mg/dl Phosphorus 2.8 (2.5-4.5) mg/dL Magnesium 1.8 (1.6-2.3) mg/dL Total Bilirubin 0.4 (0.2-1.3) mg/dL AST 19 (14-36) U/L ALT < 6 L (9-52) U/L Alkaline Phosphatase 106 (38-126) U/L Total Protein 6.2 L (6.3-8.3) g/dL Albumin 2.7 L (3.5-5.0) g/dL Globulin 3.5 (2.2-3.9) gm/dL Albumin/Globulin Ratio 0.8 L (1.0-2.1) 10/29/17 10/28/17 10/28/17 Range/Units 05:48 23:27 17:33 WBC (4.8-10.8) K/uL RBC (3.80-5.20) Mil/uL Hgb (11.0-16.0) g/dL Hct (34.0-47.0) % MCV (81.0-99.0) fL MCH (27.0-31.0) pg MCHC (33.0-37.0) g/dL RDW (11.5-14.5) % Plt Count (130-400) K/uL MPV (7.2-11.7) fL Neut % (Auto) (50.0-75.0) % Lymph % (Auto) (20.0-40.0) % [place] % (Auto) (0.0-10.0) % Eos % (Auto) (0.0-4.0) % Baso % (Auto) (0.0-2.0) % Neut # (Auto) (1.8-7.0) K/uL Lymph # (Auto) (1.0-4.3) K/uL [place] # (Auto) (0.0-0.8) K/uL Eos # (Auto) (0.0-0.7) K/uL Baso # (Auto) (0.0-0.2) K/uL Neutrophils % (Manual) (50-75) % Lymphocytes % (Manual) (20-40) % Monocytes % (Manual) (0-10) % Platelet Estimate (NORMAL) Poikilocytosis (manual Anisocytosis (manual) Tear Drop Cells Ovalocytes PT (9.7-12.2) SECONDS INR APTT (21-34) SECONDS Sodium (132-148) mmol/L Potassium (3.6-5.2) mmol/L Chloride (98-107) mmol/L Carbon Dioxide (22-30) mmol/L Anion Gap (10-20) BUN (7-17) mg/dL Creatinine (0.7-1.2) mg/dL Est GFR ( Amer) Est GFR (Non-Af Amer) POC Glucose (mg/dL) 218 H 219 H 163 H (65-110) mg/dL Random Glucose (65-105) mg/dL Calcium (8.6-10.4) mg/dl Phosphorus (2.5-4.5) mg/dL Magnesium (1.6-2.3) mg/dL Total Bilirubin (0.2-1.3) mg/dL AST (14-36) U/L ALT (9-52) U/L Alkaline Phosphatase (38-126) U/L Total Protein (6.3-8.3) g/dL Albumin (3.5-5.0) g/dL Globulin (2.2-3.9) gm/dL Albumin/Globulin Ratio (1.0-2.1) 10/28/17 10/28/17 Range/Units 11:25 06:07 WBC (4.8-10.8) K/uL RBC (3.80-5.20) Mil/uL Hgb (11.0-16.0) g/dL Hct (34.0-47.0) % MCV (81.0-99.0) fL MCH (27.0-31.0) pg MCHC (33.0-37.0) g/dL RDW (11.5-14.5) % Plt Count (130-400) K/uL MPV (7.2-11.7) fL Neut % (Auto) (50.0-75.0) % Lymph % (Auto) (20.0-40.0) % [place] % (Auto) (0.0-10.0) % Eos % (Auto) (0.0-4.0) % Baso % (Auto) (0.0-2.0) % Neut # (Auto) (1.8-7.0) K/uL Lymph # (Auto) (1.0-4.3) K/uL [place] # (Auto) (0.0-0.8) K/uL Eos # (Auto) (0.0-0.7) K/uL Baso # (Auto) (0.0-0.2) K/uL Neutrophils % (Manual) 85 H (50-75) % Lymphocytes % (Manual) 9 L (20-40) % Monocytes % (Manual) 6 (0-10) % Platelet Estimate Normal (NORMAL) Poikilocytosis (manual Slight Anisocytosis (manual) Slight Tear Drop Cells Slight Ovalocytes Slight PT (9.7-12.2) SECONDS INR APTT (21-34) SECONDS Sodium (132-148) mmol/L Potassium (3.6-5.2) mmol/L Chloride (98-107) mmol/L Carbon Dioxide (22-30) mmol/L Anion Gap (10-20) BUN (7-17) mg/dL Creatinine (0.7-1.2) mg/dL Est GFR ( Amer) Est GFR (Non-Af Amer) POC Glucose (mg/dL) 216 H (65-110) mg/dL Random Glucose (65-105) mg/dL Calcium (8.6-10.4) mg/dl Phosphorus (2.5-4.5) mg/dL Magnesium (1.6-2.3) mg/dL Total Bilirubin (0.2-1.3) mg/dL AST (14-36) U/L ALT (9-52) U/L Alkaline Phosphatase (38-126) U/L Total Protein (6.3-8.3) g/dL Albumin (3.5-5.0) g/dL Globulin (2.2-3.9) gm/dL Albumin/Globulin Ratio (1.0-2.1) Laboratory Results - last 24 hr 10/28/17 10/28/17 10/28/17 06:07 11:25 17:33 WBC RBC Hgb Hct MCV MCH MCHC RDW Plt Count MPV Neut % (Auto) Lymph % (Auto) [place] % (Auto) Eos % (Auto) Baso % (Auto) Neut # (Auto) Lymph # (Auto) [place] # (Auto) Eos # (Auto) Baso # (Auto) Neutrophils % (Manual) 85 H Lymphocytes % (Manual) 9 L Monocytes % (Manual) 6 Platelet Estimate Normal Poikilocytosis (manual Slight Anisocytosis (manual) Slight Tear Drop Cells Slight Ovalocytes Slight PT INR APTT Sodium Potassium Chloride Carbon Dioxide Anion Gap BUN Creatinine Est GFR ( Amer) Est GFR (Non-Af Amer) POC Glucose (mg/dL) 216 H 163 H Random Glucose Calcium Phosphorus Magnesium Total Bilirubin AST ALT Alkaline Phosphatase Total Protein Albumin Globulin Albumin/Globulin Ratio 10/28/17 10/29/17 10/29/17 23:27 05:48 06:10 WBC RBC Hgb Hct MCV MCH MCHC RDW Plt Count MPV Neut % (Auto) Lymph % (Auto) [place] % (Auto) Eos % (Auto) Baso % (Auto) Neut # (Auto) Lymph # (Auto) [place] # (Auto) Eos # (Auto) Baso # (Auto) Neutrophils % (Manual) Lymphocytes % (Manual) Monocytes % (Manual) Platelet Estimate Poikilocytosis (manual Anisocytosis (manual) Tear Drop Cells Ovalocytes PT 11.1 INR 1.0 APTT 29 Sodium Potassium Chloride Carbon Dioxide Anion Gap BUN Creatinine Est GFR ( Amer) Est GFR (Non-Af Amer) POC Glucose (mg/dL) 219 H 218 H Random Glucose Calcium Phosphorus Magnesium Total Bilirubin AST ALT Alkaline Phosphatase Total Protein Albumin Globulin Albumin/Globulin Ratio 10/29/17 10/29/17 06:10 06:10 WBC 9.2 RBC 3.62 L Hgb 10.6 L Hct 31.4 L MCV 86.7 MCH 29.3 MCHC 33.8 RDW 15.9 H Plt Count 352 MPV 8.2 Neut % (Auto) 79.8 H Lymph % (Auto) 10.6 L [place] % (Auto) 6.9 Eos % (Auto) 1.7 Baso % (Auto) 1.0 Neut # (Auto) 7.3 H Lymph # (Auto) 1.0 [place] # (Auto) 0.6 Eos # (Auto) 0.2 Baso # (Auto) 0.1 Neutrophils % (Manual) Lymphocytes % (Manual) Monocytes % (Manual) Platelet Estimate Poikilocytosis (manual Anisocytosis (manual) Tear Drop Cells Ovalocytes PT INR APTT Sodium 138 Potassium 3.3 L Chloride 105 Carbon Dioxide 24 Anion Gap 12 BUN 16 Creatinine 0.8 Est GFR ( Amer) > 60 Est GFR (Non-Af Amer) > 60 POC Glucose (mg/dL) Random Glucose 229 H Calcium 8.5 L Phosphorus 2.8 Magnesium 1.8 Total Bilirubin 0.4 AST 19 ALT < 6 L Alkaline Phosphatase 106 Total Protein 6.2 L Albumin 2.7 L Globulin 3.5 Albumin/Globulin Ratio 0.8 L Fingerstick Blood Sugar Results: 218 Critical Care Progress Note - Nutrition Nutrition: Nutrition Category Date Time Status Liquid Diet [DIET] Diets 10/27/17 Breakfast Active
[2017-10-29] MEDS: Alum-Mag Hydrox-Simethicone Susp (30 mL) PO PRN ×2 (08:52→14:53)
[2017-10-29] MEDS ORDERED: PPN #4 IV SCH (10:00)
--- NOTE | 2017-10-29 10:00 | CP.PCM.PN ---
Subjective - Date & Time of Evaluation Date of Evaluation: 10/29/17 Time of Evaluation: 09:56 - Subjective Subjective: Surgery: Dr. Cota Pt seen and examined. No acute overnight events. States she feels ok but is having heartburn. Abdominal pain is well controlled. Pt had 1 soft brown BM per nursing. Denies N/V, F/C. Objective - Vital Signs/Intake and Output Vital Signs (last 24 hours): Temp Pulse Resp BP Pulse Ox 98 F 97 H 13 179/72 H 96 10/29/17 06:40 10/29/17 09:00 10/28/17 16:03 10/29/17 07:54 10/29/17 09:00 Intake and Output: 10/29/17 10/29/17 06:59 18:59 Intake Total 720 120 Output Total 1000 360 Balance -280 -240 - Medications Medications: Current Medications Al Hydrox/Mg Hydrox/Simethicone (Maalox Plus 30 Ml) 30 ml PO Q6H PRN PRN Reason: Indigestion / Heartburn Last Admin: 10/29/17 08:52 Dose: 30 ml Amlodipine Besylate (Norvasc) 10 mg PO DAILY [facility] Last Admin: 10/20/17 09:57 Dose: Not Given Enalaprilat (Vasotec) 1.25 mg IV Q6 [facility] Last Admin: 10/29/17 05:20 Dose: 1.25 mg Ferric Sodium Gluconate Complex (Ferrlecit) 125 mg IVPB DAILY [facility] Stop: 11/06/17 10:01 Heparin Sodium (Porcine) (Heparin) 5,000 units SC Q8 [facility] Last Admin: 10/29/17 05:21 Dose: 5,000 units Hydralazine HCl (Apresoline) 10 mg IVP Q6H PRN PRN Reason: Hypertension Last Admin: 10/29/17 06:30 Dose: 10 mg Vancomycin/Sodium Chloride (Vancomycin 1 Gm/Ns 200 Ml) 1 gm in 200 mls @ 133 mls/hr IVPB Q24H [facility] PRN Reason: Protocol Stop: 10/30/17 18:01 Last Admin: 10/28/17 17:45 Dose: 133 mls/hr Folic Acid 1 mg/ Sodium (Chloride) 100.2 mls @ 60 mls/hr IV DAILY [facility] Last Admin: 10/28/17 09:44 Dose: 60 mls/hr Insulin Human Regular 10 unit/Multivitamins/Vitamin C 10 ml / Amino Acids 1, 010.1 mls @ 60 mls/hr IV .[id number] [facility] Stop: 10/29/17 10:00 Last Admin: 10/28/17 17:43 Dose: 60 mls/hr Insulin Human Regular 10 unit/ (Amino Acids) 1,000.1 mls @ 60 mls/hr IV .[id number] [facility] Stop: 10/29/17 18:00 Potassium Chloride (Potassium Chloride 20 Meq/100 Ml) 20 meq in 100 mls @ 50 mls/hr IVPB ONCE ONE Stop: 10/29/17 10:29 Last Admin: 10/29/17 08:54 Dose: 50 mls/hr Insulin Aspart (Novolog) 0 unit SC Q6 [facility] PRN Reason: Protocol Last Admin: 10/29/17 06:30 Dose: 4 unit Metoprolol Tartrate (Lopressor) 5 mg IVP Q6H [facility] Last Admin: 10/29/17 02:50 Dose: 5 mg Morphine Sulfate (Morphine) 4 mg IVP Q3H PRN PRN Reason: Pain, severe (8-10) Last Admin: 10/28/17 02:18 Dose: 4 mg Morphine Sulfate (Morphine) 2 mg IVP Q4 PRN PRN Reason: Pain, moderate (4-7) Last Admin: 10/29/17 00:41 Dose: 2 mg Mupirocin (Bactroban 2% Nasal) 0.5 gm BROOK BID [facility] Last Admin: 10/28/17 17:41 Dose: 0.5 gm Nitroglycerin (Nitro-Bid 2% Oint) 1 ea TOP Q6 [facility] Last Admin: 10/29/17 05:21 Dose: 1 ea Ondansetron HCl (Zofran Inj) 4 mg IVP Q6H PRN PRN Reason: Nausea/Vomiting Last Admin: 10/28/17 20:40 Dose: 4 mg Pantoprazole Sodium (Protonix Inj) 40 mg IVP Q12H [facility] Last Admin: 10/29/17 05:23 Dose: 40 mg Phenytoin (Dilantin) 100 mg IVP Q8H [facility] Last Admin: 10/29/17 05:21 Dose: 100 mg - Labs Labs: 10/29/17 06:10 10/29/17 06:10 PT 11.1 SECONDS (9.7-12.2) 10/29/17 06:10 INR 1.0 10/29/17 06:10 APTT 29 SECONDS (21-34) 10/29/17 06:10 - Constitutional Appears: Well, No Acute Distress - Head Exam Head Exam: ATRAUMATIC, NORMOCEPHALIC - Eye Exam Eye Exam: Normal appearance - ENT Exam ENT Exam: Mucous Membranes Moist - Respiratory Exam Respiratory Exam: NORMAL BREATHING PATTERN - Cardiovascular Exam Cardiovascular Exam: Tachycardia - GI/Abdominal Exam GI & Abdominal Exam: Soft. absent: Distended, Tenderness - Neurological Exam Neurological Exam: Alert, Awake, Oriented x3 - Skin Skin Exam: Dry, Intact, Warm Assessment and Plan - Assessment and Plan (Free Text) Assessment: 57F s/p Ex-Lap with distal 1/3 SB resection; POD#4 Plan: - advance to FLD - monitor bowel movements for blood per rectum; H/H has remained stable - encourage ambulation - d/w Dr. Beata Lamb, PGY-3
[2017-10-29] MEDS: Mupirocin 2% Ointment (NASAL) NAS SCH ×2 (10:28→18:34)
[2017-10-29] MEDS: Ferric Sodium Gluconat Complex 62.5 mg/5 ml Vial IVPB SCH (10:35)
--- NOTE | 2017-10-29 16:35 | CP.PCM.PN ---
Subjective - Date & Time of Evaluation Date of Evaluation: 10/29/17 Time of Evaluation: 13:30 - Subjective Subjective: Podiatry Progress Note- Dr. 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 Pt seen resting in bed at time of visit, appears to be in NAD, and more alert. Reports pain to the L big toe. Denies f/v/c/sob/ or cp. Reports same nausea. No other pedal complaints. Objective - Vital Signs/Intake and Output Vital Signs (last 24 hours): Temp Pulse Resp BP Pulse Ox 98 F 94 H 14 198/76 H 98 10/29/17 06:40 10/29/17 15:00 10/29/17 15:00 10/29/17 14:54 10/29/17 10:00 Intake and Output: 10/29/17 10/29/17 06:59 18:59 Intake Total 720 1070 Output Total 1000 360 Balance -280 710 - Medications Medications: Current Medications Al Hydrox/Mg Hydrox/Simethicone (Maalox Plus 30 Ml) 30 ml PO Q6H PRN PRN Reason: Indigestion / Heartburn Last Admin: 10/29/17 14:53 Dose: 30 ml Amlodipine Besylate (Norvasc) 10 mg PO DAILY [facility] Last Admin: 10/20/17 09:57 Dose: Not Given Enalaprilat (Vasotec) 1.25 mg IV Q6 [facility] Last Admin: 10/29/17 13:00 Dose: 1.25 mg Ferric Sodium Gluconate Complex (Ferrlecit) 125 mg IVPB DAILY [facility] Stop: 11/06/17 10:01 Last Admin: 10/29/17 10:35 Dose: 125 mg Heparin Sodium (Porcine) (Heparin) 5,000 units SC Q8 [facility] Last Admin: 10/29/17 14:45 Dose: 5,000 units Hydralazine HCl (Apresoline) 10 mg IVP Q6H PRN PRN Reason: Hypertension Last Admin: 10/29/17 06:30 Dose: 10 mg Vancomycin/Sodium Chloride (Vancomycin 1 Gm/Ns 200 Ml) 1 gm in 200 mls @ 133 mls/hr IVPB Q24H [facility] PRN Reason: Protocol Stop: 10/30/17 18:01 Last Admin: 10/28/17 17:45 Dose: 133 mls/hr Folic Acid 1 mg/ Sodium (Chloride) 100.2 mls @ 60 mls/hr IV DAILY [facility] Last Admin: 10/29/17 10:32 Dose: 60 mls/hr Insulin Human Regular 10 unit/ (Amino Acids) 1,000.1 mls @ 60 mls/hr IV .[id number] [facility] Stop: 10/29/17 18:00 Last Admin: 10/29/17 10:33 Dose: 60 mls/hr Insulin Human Regular 10 unit/ (Amino Acids) 1,000.1 mls @ 60 mls/hr IV .[id number] [facility] Stop: 10/30/17 10:00 Insulin Human Regular 10 unit/ (Amino Acids) 1,000.1 mls @ 60 mls/hr IV .[id number] [facility] Stop: 10/30/17 18:00 Insulin Aspart (Novolog) 0 unit SC Q6 [facility] PRN Reason: Protocol Last Admin: 10/29/17 12:30 Dose: 6 unit Metoprolol Tartrate (Lopressor) 5 mg IVP Q6H [facility] Last Admin: 10/29/17 14:53 Dose: 5 mg Morphine Sulfate (Morphine) 2 mg IVP Q4 PRN PRN Reason: Pain, moderate (4-7) Last Admin: 10/29/17 12:19 Dose: 2 mg Mupirocin (Bactroban 2% Nasal) 0.5 gm BROOK BID [facility] Last Admin: 10/29/17 10:28 Dose: 0.5 gm Nitroglycerin (Nitro-Bid 2% Oint) 1 ea TOP Q6 [facility] Last Admin: 10/29/17 12:30 Dose: 1 ea Ondansetron HCl (Zofran Inj) 4 mg IVP Q6H PRN PRN Reason: Nausea/Vomiting Last Admin: 10/29/17 10:24 Dose: 4 mg Pantoprazole Sodium (Protonix Inj) 40 mg IVP Q12H [facility] Last Admin: 10/29/17 05:23 Dose: 40 mg Phenytoin (Dilantin) 100 mg IVP Q8H [facility] Last Admin: 10/29/17 05:21 Dose: 100 mg - Labs Labs: 10/29/17 06:10 10/29/17 06:10 PT 11.1 SECONDS (9.7-12.2) 10/29/17 06:10 INR 1.0 10/29/17 06:10 APTT 29 SECONDS (21-34) 10/29/17 06:10 - Constitutional Appears: Well, Non-toxic, No Acute Distress - Extremities Exam Extremities Exam: absent: Calf Tenderness Additional comments: LLE focused: dressing to left foot appears c,d,i Vasc: DP and PT pulses are nonpalpable, skin temp runs cool to cool (proximal to distal) lower extremities cool to cool Ortho: Mild pain with palpation to the left hallux and surrounding periwound, MM is 4/5 in all four compartments consistent with age Neuro: gross sensation intact bilaterally, protective sensation diminished Derm: dry gangrene noted to the distal left hallux to the level of the IPJ with nail plate absent from nail bed, wound base is 100% necrotic and gangrenous, distal mummification with demarcating process noted, no active purulent drainage noted or expressed, no malodor, no appreciable erythema or streaking, no probe to bone, no tunneling, no undermining. 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 Travis Bhat, DPM afebrile, no leukocytosis CT angio: -Right- short segment moderate stenosis prox SFA w/ long segment severe stenosis of the mid/distal SFA stent. Mild tandem stenosis of right popliteal. Markedly limited evaluation of below knee arteries due to heavy arterial wall calcification -Left- short segment moderate stenosis of prox SFA. Patent indwelling mid/ distal SFA stent. Mild tandem stenoses of the superficial femoral and popliteal artery. Markedly limited eval of anterior tibial and peroneal arteries due to heavy arterial wall calcification -4 days s/p small bowel resection and anastamosis -conservative care for toe at this time, betadine + DSD applied -will follow
--- NOTE | 2017-10-29 17:06 | CP.PCM.PN ---
Subjective - Date & Time of Evaluation Date of Evaluation: 10/29/17 Time of Evaluation: 17:00 - Subjective Subjective: No complaints. Objective - Vital Signs/Intake and Output Vital Signs (last 24 hours): Temp Pulse Resp BP Pulse Ox 98.4 F 101 H 16 174/66 H 98 10/29/17 15:00 10/29/17 16:00 10/29/17 16:00 10/29/17 15:54 10/29/17 10:00 Intake and Output: 10/29/17 10/29/17 06:59 18:59 Intake Total 720 1190 Output Total 1000 360 Balance -280 830 - Medications Medications: Current Medications Al Hydrox/Mg Hydrox/Simethicone (Maalox Plus 30 Ml) 30 ml PO Q6H PRN PRN Reason: Indigestion / Heartburn Last Admin: 10/29/17 14:53 Dose: 30 ml Amlodipine Besylate (Norvasc) 10 mg PO DAILY [facility] Last Admin: 10/20/17 09:57 Dose: Not Given Enalaprilat (Vasotec) 1.25 mg IV Q6 [facility] Last Admin: 10/29/17 13:00 Dose: 1.25 mg Ferric Sodium Gluconate Complex (Ferrlecit) 125 mg IVPB DAILY [facility] Stop: 11/06/17 10:01 Last Admin: 10/29/17 10:35 Dose: 125 mg Furosemide (Lasix) 20 mg IVP DAILY [facility] Heparin Sodium (Porcine) (Heparin) 5,000 units SC Q8 [facility] Last Admin: 10/29/17 14:45 Dose: 5,000 units Hydralazine HCl (Apresoline) 10 mg IVP Q6H PRN PRN Reason: Hypertension Last Admin: 10/29/17 06:30 Dose: 10 mg Vancomycin/Sodium Chloride (Vancomycin 1 Gm/Ns 200 Ml) 1 gm in 200 mls @ 133 mls/hr IVPB Q24H [facility] PRN Reason: Protocol Stop: 10/30/17 18:01 Last Admin: 10/28/17 17:45 Dose: 133 mls/hr Folic Acid 1 mg/ Sodium (Chloride) 100.2 mls @ 60 mls/hr IV DAILY [facility] Last Admin: 10/29/17 10:32 Dose: 60 mls/hr Insulin Human Regular 10 unit/ (Amino Acids) 1,000.1 mls @ 60 mls/hr IV .[id number] [facility] Stop: 10/29/17 18:00 Last Admin: 10/29/17 10:33 Dose: 60 mls/hr Insulin Human Regular 10 unit/ (Amino Acids) 1,000.1 mls @ 60 mls/hr IV .[id number] [facility] Stop: 10/30/17 10:00 Insulin Human Regular 10 unit/ (Amino Acids) 1,000.1 mls @ 60 mls/hr IV .[id number] [facility] Stop: 10/30/17 18:00 Insulin Aspart (Novolog) 0 unit SC Q6 [facility] PRN Reason: Protocol Last Admin: 10/29/17 12:30 Dose: 6 unit Metoprolol Tartrate (Lopressor) 5 mg IVP Q6H [facility] Last Admin: 10/29/17 14:53 Dose: 5 mg Morphine Sulfate (Morphine) 2 mg IVP Q4 PRN PRN Reason: Pain, moderate (4-7) Last Admin: 10/29/17 12:19 Dose: 2 mg Mupirocin (Bactroban 2% Nasal) 0.5 gm BROOK BID [facility] Last Admin: 10/29/17 10:28 Dose: 0.5 gm Nitroglycerin (Nitro-Bid 2% Oint) 1 ea TOP Q6 [facility] Last Admin: 10/29/17 12:30 Dose: 1 ea Ondansetron HCl (Zofran Inj) 4 mg IVP Q6H PRN PRN Reason: Nausea/Vomiting Last Admin: 10/29/17 10:24 Dose: 4 mg Pantoprazole Sodium (Protonix Inj) 40 mg IVP Q12H [facility] Last Admin: 10/29/17 05:23 Dose: 40 mg Phenytoin (Dilantin) 100 mg IVP Q8H [facility] Last Admin: 10/29/17 05:21 Dose: 100 mg - Labs Labs: 10/29/17 06:10 10/29/17 06:10 PT 11.1 SECONDS (9.7-12.2) 10/29/17 06:10 INR 1.0 10/29/17 06:10 APTT 29 SECONDS (21-34) 10/29/17 06:10 - Head Exam Head Exam: ATRAUMATIC - Eye Exam Eye Exam: Normal appearance - ENT Exam ENT Exam: Mucous Membranes Dry - Respiratory Exam Respiratory Exam: NORMAL BREATHING PATTERN - Cardiovascular Exam Cardiovascular Exam: +S1, +S2 - GI/Abdominal Exam GI & Abdominal Exam: Normal Bowel Sounds Assessment and Plan (1) Anemia Assessment & Plan: multifactorial; hypoproliferative erythroid response likely chronic iron deficiency from chronic slow GI blood loss while on anticoagulation exacerbated by acute faster GI bleeding 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
--- NOTE | 2017-10-29 17:46 | CP.PCM.PN ---
Subjective - Date & Time of Evaluation Date of Evaluation: 10/29/17 Time of Evaluation: 08:00 - Subjective Subjective: no fever on iv antibiotics Objective - Vital Signs/Intake and Output Vital Signs (last 24 hours): Temp Pulse Resp BP Pulse Ox 98.4 F 101 H 16 174/66 H 98 10/29/17 15:00 10/29/17 16:00 10/29/17 16:00 10/29/17 15:54 10/29/17 10:00 Intake and Output: 10/29/17 10/29/17 06:59 18:59 Intake Total 720 1190 Output Total 1000 360 Balance -280 830 - Medications Medications: Current Medications Al Hydrox/Mg Hydrox/Simethicone (Maalox Plus 30 Ml) 30 ml PO Q6H PRN PRN Reason: Indigestion / Heartburn Last Admin: 10/29/17 14:53 Dose: 30 ml Amlodipine Besylate (Norvasc) 10 mg PO DAILY [facility] Last Admin: 10/20/17 09:57 Dose: Not Given Enalaprilat (Vasotec) 1.25 mg IV Q6 [facility] Last Admin: 10/29/17 13:00 Dose: 1.25 mg Ferric Sodium Gluconate Complex (Ferrlecit) 125 mg IVPB DAILY [facility] Stop: 11/06/17 10:01 Last Admin: 10/29/17 10:35 Dose: 125 mg Furosemide (Lasix) 20 mg IVP DAILY [facility] Heparin Sodium (Porcine) (Heparin) 5,000 units SC Q8 [facility] Last Admin: 10/29/17 14:45 Dose: 5,000 units Hydralazine HCl (Apresoline) 10 mg IVP Q6H PRN PRN Reason: Hypertension Last Admin: 10/29/17 06:30 Dose: 10 mg Vancomycin/Sodium Chloride (Vancomycin 1 Gm/Ns 200 Ml) 1 gm in 200 mls @ 133 mls/hr IVPB Q24H [facility] PRN Reason: Protocol Stop: 10/30/17 18:01 Last Admin: 10/28/17 17:45 Dose: 133 mls/hr Folic Acid 1 mg/ Sodium (Chloride) 100.2 mls @ 60 mls/hr IV DAILY [facility] Last Admin: 10/29/17 10:32 Dose: 60 mls/hr Insulin Human Regular 10 unit/ (Amino Acids) 1,000.1 mls @ 60 mls/hr IV .[id number] [facility] Stop: 10/29/17 18:00 Last Admin: 10/29/17 10:33 Dose: 60 mls/hr Insulin Human Regular 10 unit/ (Amino Acids) 1,000.1 mls @ 60 mls/hr IV .[id number] [facility] Stop: 10/30/17 10:00 Insulin Human Regular 10 unit/ (Amino Acids) 1,000.1 mls @ 60 mls/hr IV .[id number] [facility] Stop: 10/30/17 18:00 Insulin Aspart (Novolog) 0 unit SC Q6 [facility] PRN Reason: Protocol Last Admin: 10/29/17 12:30 Dose: 6 unit Metoprolol Tartrate (Lopressor) 5 mg IVP Q6H [facility] Last Admin: 10/29/17 14:53 Dose: 5 mg Morphine Sulfate (Morphine) 2 mg IVP Q4 PRN PRN Reason: Pain, moderate (4-7) Last Admin: 10/29/17 12:19 Dose: 2 mg Mupirocin (Bactroban 2% Nasal) 0.5 gm BROOK BID [facility] Last Admin: 10/29/17 10:28 Dose: 0.5 gm Nitroglycerin (Nitro-Bid 2% Oint) 1 ea TOP Q6 [facility] Last Admin: 10/29/17 12:30 Dose: 1 ea Ondansetron HCl (Zofran Inj) 4 mg IVP Q6H PRN PRN Reason: Nausea/Vomiting Last Admin: 10/29/17 10:24 Dose: 4 mg Pantoprazole Sodium (Protonix Inj) 40 mg IVP Q12H [facility] Last Admin: 10/29/17 05:23 Dose: 40 mg Phenytoin (Dilantin) 100 mg IVP Q8H [facility] Last Admin: 10/29/17 05:21 Dose: 100 mg - Labs Labs: 10/29/17 06:10 10/29/17 06:10 PT 11.1 SECONDS (9.7-12.2) 10/29/17 06:10 INR 1.0 10/29/17 06:10 APTT 29 SECONDS (21-34) 10/29/17 06:10 - Constitutional Appears: Non-toxic, Chronically Ill - Head Exam Head Exam: NORMOCEPHALIC - Eye Exam Eye Exam: PERRL - ENT Exam ENT Exam: Mucous Membranes Dry - Neck Exam Neck Exam: absent: Lymphadenopathy - Respiratory Exam Respiratory Exam: Decreased Breath Sounds - Cardiovascular Exam Cardiovascular Exam: REGULAR RHYTHM - GI/Abdominal Exam GI & Abdominal Exam: Distended, Soft. absent: Tenderness Assessment and Plan (1) Anemia Status: Acute (2) Toe gangrene Status: Acute (3) CAD (coronary artery disease) Status: Chronic (4) Dyslipidemia Status: Chronic (5) PVD (peripheral vascular disease) Status: Chronic (6) Uncontrolled diabetes mellitus Status: Chronic
[2017-10-29] MEDS ORDERED: PPN #5 IV SCH (18:00)
[2017-10-29] MEDS: Vancomycin 1 gm/NS 200 ml 1 GM/200 ML BAG IVPB SCH (18:31)
--- NOTE | 2017-10-29 21:14 | CARD ---
APPROVED REPORT EKG Measurement Heart [id number] <Conclusion> Sinus tachycardia Anterior infarct, age undetermined T wave abnormality, consider inferolateral ischemia Abnormal ECG
--- NOTE | 2017-10-29 22:13 | PN ---
DATE: SUBJECTIVE: The patient's bowel movement today according to the nurse, that was not black in color. The patient denied any chest pain. The patient was started on subcutaneous heparin therapy today at 5000 units every 8 hours. PHYSICAL EXAMINATION: VITAL SIGNS: Blood pressure 198/76, heart rate 108, temperature 9 8.5. HEENT: Pale conjunctivae. CHEST: Clear. HEART: S1 and S2, regular. ABDOMEN: Diminished bowel sounds. EXTREMITIES: 1+ pitting edema. LABORATORY DATA: Today's hemoglobin and hematocrit 10.6 and 31.4, white count and platelet count are within normal limits. Today's SMA-7 is within normal limits except for glucose of 229 and potassium of 3.3. Calcium is 8.5. ASSESSMENT: 1. Status post distal small-bowel resection for lower gastrointestinal bleeding. 2. Status post aortic and mitral valve replacement. 3. Peripheral vascular disease, status post recent left lower extremity stenting. 4. Anemia. 5. Seizure disorder. RECOMMENDATIONS: Continue current subcutaneous heparin 5000 units every 8 hours. Continue Lopressor 5 mg intravenously every 6 hours p.r.n. Continue Lasix 1.25 mg intravenously every 6 hours. Start Lasix 20 mg intravenously daily. Continue IV vancomycin at 1 gm daily. The patient did receive 20 mEq of IV potassium replacement today. Follow up BMP tomorrow. Kraig Sheldon MD
--- NOTE | 2017-10-29 22:45 | CP.PCM.PN ---
Subjective - Date & Time of Evaluation Date of Evaluation: 10/29/17 Time of Evaluation: 17:40 - Subjective Subjective: Pt seen and examined, pt is improving, electrolytes are improving Objective - Vital Signs/Intake and Output Vital Signs (last 24 hours): Temp Pulse Resp BP Pulse Ox 98.7 F 81 13 121/53 L 99 10/29/17 20:00 10/29/17 22:00 10/29/17 22:00 10/29/17 21:54 10/29/17 22:00 Intake and Output: 10/29/17 10/30/17 18:59 06:59 Intake Total 1360 320 Output Total 660 0 Balance 700 320 - Medications Medications: Current Medications Al Hydrox/Mg Hydrox/Simethicone (Maalox Plus 30 Ml) 30 ml PO Q6H PRN PRN Reason: Indigestion / Heartburn Last Admin: 10/29/17 14:53 Dose: 30 ml Amlodipine Besylate (Norvasc) 10 mg PO DAILY [facility] Last Admin: 10/20/17 09:57 Dose: Not Given Enalaprilat (Vasotec) 1.25 mg IV Q6 [facility] Last Admin: 10/29/17 18:31 Dose: 1.25 mg Ferric Sodium Gluconate Complex (Ferrlecit) 125 mg IVPB DAILY [facility] Stop: 11/06/17 10:01 Last Admin: 10/29/17 10:35 Dose: 125 mg Furosemide (Lasix) 20 mg IVP DAILY [facility] Last Admin: 10/29/17 18:34 Dose: 20 mg Heparin Sodium (Porcine) (Heparin) 5,000 units SC Q8 [facility] Last Admin: 10/29/17 21:00 Dose: 5,000 units Hydralazine HCl (Apresoline) 10 mg IVP Q6H PRN PRN Reason: Hypertension Last Admin: 10/29/17 06:30 Dose: 10 mg Vancomycin/Sodium Chloride (Vancomycin 1 Gm/Ns 200 Ml) 1 gm in 200 mls @ 133 mls/hr IVPB Q24H [facility] PRN Reason: Protocol Stop: 10/30/17 18:01 Last Admin: 10/29/17 18:31 Dose: 133 mls/hr Folic Acid 1 mg/ Sodium (Chloride) 100.2 mls @ 60 mls/hr IV DAILY [facility] Last Admin: 10/29/17 10:32 Dose: 60 mls/hr Insulin Human Regular 10 unit/ (Amino Acids) 1,000.1 mls @ 60 mls/hr IV .[id number] [facility] Stop: 10/30/17 10:00 Last Admin: 10/29/17 18:37 Dose: 60 mls/hr Insulin Human Regular 10 unit/ (Amino Acids) 1,000.1 mls @ 60 mls/hr IV .[id number] [facility] Stop: 10/30/17 18:00 Insulin Aspart (Novolog) 0 unit SC Q6 [facility] PRN Reason: Protocol Last Admin: 10/29/17 18:30 Dose: 4 unit Metoprolol Tartrate (Lopressor) 5 mg IVP Q6H [facility] Last Admin: 10/29/17 21:00 Dose: 5 mg Morphine Sulfate (Morphine) 2 mg IVP Q4 PRN PRN Reason: Pain, moderate (4-7) Last Admin: 10/29/17 12:19 Dose: 2 mg Mupirocin (Bactroban 2% Nasal) 0.5 gm BROOK BID [facility] Last Admin: 10/29/17 18:34 Dose: 0.5 gm Nitroglycerin (Nitro-Bid 2% Oint) 1 ea TOP Q6 [facility] Last Admin: 10/29/17 18:35 Dose: Not Given Ondansetron HCl (Zofran Inj) 4 mg IVP Q6H PRN PRN Reason: Nausea/Vomiting Last Admin: 10/29/17 10:24 Dose: 4 mg Pantoprazole Sodium (Protonix Inj) 40 mg IVP Q12H [facility] Last Admin: 10/29/17 18:31 Dose: 40 mg Phenytoin (Dilantin) 100 mg IVP Q8H [facility] Last Admin: 10/29/17 21:01 Dose: 100 mg - Labs Labs: 10/29/17 06:10 10/29/17 06:10 PT 11.1 SECONDS (9.7-12.2) 10/29/17 06:10 INR 1.0 10/29/17 06:10 APTT 29 SECONDS (21-34) 10/29/17 06:10 - Constitutional Appears: No Acute Distress - Head Exam Head Exam: ATRAUMATIC, NORMAL INSPECTION, NORMOCEPHALIC - Eye Exam Eye Exam: EOMI, Normal appearance, PERRL Pupil Exam: NORMAL ACCOMODATION, PERRL - Respiratory Exam Respiratory Exam: Clear to Ausculation Bilateral, NORMAL BREATHING PATTERN - Cardiovascular Exam Cardiovascular Exam: REGULAR RHYTHM, +S1, +S2. absent: Murmur - GI/Abdominal Exam GI & Abdominal Exam: Soft, Normal Bowel Sounds. absent: Tenderness Assessment and Plan (1) GI bleed Status: Acute (2) Anemia Status: Acute (3) Toe gangrene Status: Acute (4) CAD (coronary artery disease) Status: Chronic
[2017-10-30] MEDS: (Novolog) Insulin Aspart, Recombinant 100 u/ml 10 ml vial SC SCH ×4 (00:02→17:46)
[2017-10-30] MEDS: Alum-Mag Hydrox-Simethicone Susp (30 mL) PO PRN ×2 (00:29→17:32)
[2017-10-30] MEDS: Phenytoin 100 mg/2 ml Inj IVP SCH ×3 (04:00→21:16)
[2017-10-30] MEDS: Metoprolol 1 mg/ml Inj IVP SCH ×4 (04:00→21:16)
[2017-10-30] MEDS: Morphine 4 MG/ML VIAL IVP PRN ×4 (04:06→21:37)
[2017-10-30] MEDS: Nitroglycerin 2% Ointment Foilpak UD TOP SCH ×4 (05:07→23:33)
[2017-10-30] MEDS: Enalaprilat 2.5 MG/2 ML IV SCH ×4 (05:07→23:33)
[2017-10-30 06:02] LABS: BASO # 0.1 K/uL (0.0-0.2); BASO % 1.2 % (0.0-2.0); EOS # 0.3 K/uL (0.0-0.7); EOS % 2.6 % (0.0-4.0); LYMPH % 10.3 % (20.0-40.0); MEAN CELL VOLUME 87.1 fL (81.0-99.0); MEAN CORPUSCULAR HEMOGLOBIN 29.2 pg (27.0-31.0); MEAN CORPUSCULAR HGB CONC 33.6 g/dL (33.0-37.0); MEAN PLATELET VOLUME 8.3 fL (7.2-11.7); MONO # 0.5 K/uL (0.0-0.8); MONO % 5.4 % (0.0-10.0); NEUT # 7.9 K/uL (1.8-7.0); NEUT % 80.5 % (50.0-75.0); NRBC % 0.1 % (0.0-2.0); RBC 3.75 Mil/uL (3.80-5.20); RED CELL DISTRIBUTION WIDTH 15.7 % (11.5-14.5); WHITE BLOOD COUNT 9.8 K/uL (4.8-10.8)
[2017-10-30 07:19] LABS: ALB/GLOB RATIO 0.8 (1.0-2.1); ALBUMIN 2.9 g/dL (3.5-5.0); ALT/SGPT < 6 U/L (9-52); AST/SGOT 31 U/L (14-36); BLOOD UREA NITROGEN 15 mg/dL (7-17); CALCIUM 8.5 mg/dl (8.6-10.4); GFR AFRICAN-AMERICAN > 60; GFR NON-AFRICAN AMERICAN > 60
[2017-10-30] MEDS: Mupirocin 2% Ointment (NASAL) NAS SCH ×2 (09:35→17:39)
[2017-10-30] MEDS: Ferric Sodium Gluconat Complex 62.5 mg/5 ml Vial IVPB SCH (09:36)
[2017-10-30] MEDS ORDERED: PPN #6 IV SCH (10:00)
[2017-10-30] MEDS: Enoxaparin 60 mg Syringe SC SCH ×2 (12:04→21:17)
--- NOTE | 2017-10-30 14:23 | CP.PCM.PN ---
Subjective - Date & Time of Evaluation Date of Evaluation: 10/30/17 Time of Evaluation: 07:10 - Subjective Subjective: General surgery progress note for Gerald Yousif, PGY-1 Pt S & E at bedside. Pt reports BM, is voinding without problem, some abdominal pain, especially with deep breaths. Denies N & V, F & C. Objective - Vital Signs/Intake and Output Vital Signs (last 24 hours): Temp Pulse Resp BP Pulse Ox 98.6 F 104 H 18 157/62 H 97 10/30/17 12:00 10/30/17 13:00 10/30/17 13:00 10/30/17 13:00 10/30/17 13:00 Intake and Output: 10/30/17 10/30/17 06:59 18:59 Intake Total 860 680 Output Total 1200 Balance -340 680 - Medications Medications: Current Medications Al Hydrox/Mg Hydrox/Simethicone (Maalox Plus 30 Ml) 30 ml PO Q6H PRN PRN Reason: Indigestion / Heartburn Last Admin: 10/30/17 00:29 Dose: 30 ml Amlodipine Besylate (Norvasc) 10 mg PO DAILY [facility] Last Admin: 10/20/17 09:57 Dose: Not Given Enalaprilat (Vasotec) 1.25 mg IV Q6 [facility] Last Admin: 10/30/17 12:03 Dose: 1.25 mg Enoxaparin Sodium (Lovenox) 60 mg SC Q12 [facility] Last Admin: 10/30/17 12:04 Dose: 60 mg Ferric Sodium Gluconate Complex (Ferrlecit) 125 mg IVPB DAILY [facility] Stop: 11/06/17 10:01 Last Admin: 10/30/17 09:36 Dose: 125 mg Furosemide (Lasix) 20 mg IVP DAILY [facility] Last Admin: 10/30/17 09:45 Dose: 20 mg Hydralazine HCl (Apresoline) 10 mg IVP Q6H PRN PRN Reason: Hypertension Last Admin: 10/30/17 04:00 Dose: 10 mg Vancomycin/Sodium Chloride (Vancomycin 1 Gm/Ns 200 Ml) 1 gm in 200 mls @ 133 mls/hr IVPB Q24H [facility] PRN Reason: Protocol Stop: 10/30/17 18:01 Last Admin: 10/29/17 18:31 Dose: 133 mls/hr Folic Acid 1 mg/ Sodium (Chloride) 100.2 mls @ 60 mls/hr IV DAILY [facility] Last Admin: 10/30/17 09:38 Dose: 60 mls/hr Insulin Human Regular 10 unit/ (Amino Acids) 1,000.1 mls @ 60 mls/hr IV .[id number] [facility] Stop: 10/30/17 18:00 Last Admin: 10/30/17 12:06 Dose: 60 mls/hr Insulin Human Regular 10 unit/Multivitamins/Vitamin C 10 ml / Amino Acids 1, 010.1 mls @ 60 mls/hr IV .[id number] [facility] Stop: 10/31/17 10:00 Insulin Human Regular 10 unit/ (Amino Acids) 1,000.1 mls @ 60 mls/hr IV .[id number] [facility] Stop: 10/31/17 17:59 Potassium Chloride (Potassium Chloride 20 Meq/100 Ml) 20 meq in 100 mls @ 50 mls/hr IVPB ONCE ONE Stop: 10/30/17 16:06 Last Admin: 10/30/17 14:19 Dose: 50 mls/hr Insulin Aspart (Novolog) 0 unit SC Q6 [facility] PRN Reason: Protocol Last Admin: 10/30/17 12:16 Dose: 4 unit Metoprolol Tartrate (Lopressor) 5 mg IVP Q6H [facility] Last Admin: 10/30/17 14:18 Dose: 5 mg Morphine Sulfate (Morphine) 2 mg IVP Q4 PRN PRN Reason: Pain, moderate (4-7) Last Admin: 10/30/17 09:53 Dose: 2 mg Mupirocin (Bactroban 2% Nasal) 0.5 gm BROOK BID [facility] Last Admin: 10/30/17 09:35 Dose: 0.5 gm Nitroglycerin (Nitro-Bid 2% Oint) 1 ea TOP Q6 [facility] Last Admin: 10/30/17 12:04 Dose: 1 ea Ondansetron HCl (Zofran Inj) 4 mg IVP Q6H PRN PRN Reason: Nausea/Vomiting Last Admin: 10/30/17 08:51 Dose: 4 mg Pantoprazole Sodium (Protonix Inj) 40 mg IVP Q12H [facility] Last Admin: 10/30/17 05:07 Dose: 40 mg Phenytoin (Dilantin) 100 mg IVP Q8H [facility] Last Admin: 10/30/17 13:00 Dose: 100 mg - Labs Labs: 10/30/17 05:56 10/30/17 05:56 PT 11.1 SECONDS (9.7-12.2) 10/29/17 06:10 INR 1.0 10/29/17 06:10 APTT 29 SECONDS (21-34) 10/29/17 06:10 - Constitutional Appears: Non-toxic, No Acute Distress - Head Exam Head Exam: ATRAUMATIC, NORMAL INSPECTION, NORMOCEPHALIC - Eye Exam Eye Exam: EOMI, Normal appearance - ENT Exam ENT Exam: Mucous Membranes Moist, Normal Exam - Neck Exam Neck Exam: Full ROM, Normal Inspection - Respiratory Exam Respiratory Exam: NORMAL BREATHING PATTERN - Cardiovascular Exam Cardiovascular Exam: Tachycardia, +S1, +S2 - GI/Abdominal Exam GI & Abdominal Exam: Soft, Tenderness (mild, around surgical site). absent: Distended, Firm, Guarding, Rigid - Extremities Exam Extremities Exam: absent: Normal Inspection (Left foot with dressing in place- Clean/dry/intact), Pedal Edema - Neurological Exam Neurological Exam: Alert, Awake, CN II-XII Intact, Oriented x3 - Psychiatric Exam Psychiatric exam: Normal Affect, Normal Mood - Skin Skin Exam: Dry, Intact, Normal Color, Warm Assessment and Plan - Assessment and Plan (Free Text) Assessment: 57F s/p Ex-Lap with distal 1/3 SB resection; POD#5 Plan: Advanced to soft diet Pain mgmt Monitor for bleeding Monitor H/H- currently stable Encourage IS use Encourage ambulation with assistance Will MARTA attending [facility], PGY-1
--- NOTE | 2017-10-30 16:22 | PN ---
DATE: SUBJECTIVE: The patient has no melena. She is experiencing nausea and vomiting. No chest pain or shortness of breath and no reported hypotension. PHYSICAL EXAMINATION VITAL SIGNS: Blood pressure 157/62, heart rate 107, temperature 98.6, respirations 18. HEENT: Pale conjunctivae. CHEST: Clear. HEART: S1 and S2, regular. Grade 2/6 ejection systolic murmur over the left sternal border. ABDOMEN: Diminished bowel sounds. EXTREMITIES: 1+ pitting edema. LABORATORY DATA: Hemoglobin and hematocrit 11 and 32.6. White count and platelet count are within normal limits. SMA-7 is within normal limits except for a potassium of 3.5 and glucose 291. Magnesium is 1.6. ASSESSMENT: 1. Status post distal small bowel resection for lower gastrointestinal bleeding. 2. Status post mitral and aortic valve replacement with mechanical prosthetic valve in 2008. 3. Status post recent stenting of the left lower extremity at [facility]. 4. Hypokalemia. RECOMMENDATIONS: The case was discussed with the medical team. The patient was started on subcutaneous Lovenox at 60 mg twice a day. Subcutaneous heparin was discontinued. Continue current IV Vasotec at 1.25 mg every 6 hours p.r.n. Continue Lopressor 5 mg intravenously every 6 hours p.r.n. The patient is also on hydralazine 10 mg intravenously every 6 hours p.r.n. We will order intravenous potassium replacement and continue Lasix 20 mg intravenously daily. Kraig Sheldon MD
--- NOTE | 2017-10-30 16:51 | CP.CCUPN ---
<Nicolas Zavala - Last Filed: 10/30/17 18:23> CCU Subjective - Physician Review Subjective (Free Text): 10/30/17 16:48 Patient seen and examined. Patient feels overall bad this morning with nausea/ vomiting after meals. CCU Objective - Vital Signs / Intake & Output Vital Signs (Last 4 hours): Vital Signs Temp Pulse Resp BP Pulse Ox 10/30/17 16:00 98.5 F 100 H 15 166/100 H 98 10/30/17 15:29 100 H 12 166/115 H 10/30/17 15:00 94 H 17 161/67 H 98 10/30/17 14:00 91 H 14 157/60 H 99 10/30/17 13:59 102 H 12 10/30/17 13:00 104 H 13 157/62 H 97 Intake and Output (Last 8hrs): Intake & Output 10/30/17 10/30/17 10/30/17 06:59 14:59 22:59 Intake Total 540 740 230 Output Total 1200 Balance -660 740 230 Weight 208 lb Intake: Intake, IV Amount 540 620 120 Purple port Right PICC 200 line Red Port Right Picc line 540 420 120 Oral 120 110 Output: Urine 1200 Urine, Voided 1200 Other: # Bowel Movements 1 - Physical Exam Head: Positive for: Atraumatic, Normocephalic Pupils: Positive for: PERRL Extroacular Muscles: Positive for: EOMI Conjunctiva: Positive for: Normal Mouth: Positive for: Moist Mucous Membranes Nose (External): Positive for: Other (NGT in place) Neck: Positive for: Normal Range of Motion Respiratory/Chest: Positive for: Clear to Auscultation, Good Air Exchange. Negative for: Respiratory Distress, Accessory Muscle Use Cardiovascular: Positive for: Regular Rate and Rhythm, Normal S1, S2, Other ( systolic murmur). Negative for: Tachycardic Abdomen: Positive for: Normal Bowel Sounds. Negative for: Tenderness, Distention Upper Extremity: Positive for: Normal Inspection Lower Extremity: Positive for: Other (Right toe dressing intact) Neurological: Positive for: GCS=15 Skin: Positive for: Warm, Dry, Normal Color Psychiatric: Positive for: Alert, Oriented x 3 - Medications Active Medications: Active Medications Generic Name Dose Route Start Last Admin Trade Name Freq PRN Reason Stop Dose Admin Al Hydrox/Mg Hydrox/Simethicone 30 ml 10/29/17 08:25 10/30/17 00:29 Maalox Plus 30 Ml PO 30 ml Q6H PRN Administration Indigestion / Heartburn Amlodipine Besylate 10 mg 10/15/17 10:00 10/20/17 09:57 Norvasc PO Not Given DAILY [facility] Enalaprilat 1.25 mg 10/27/17 12:26 10/30/17 12:03 Vasotec IV 1.25 mg Q6 [facility] Administration Enoxaparin Sodium 60 mg 10/30/17 12:00 10/30/17 12:04 Lovenox SC 60 mg Q12 [facility] Administration Ferric Sodium Gluconate Complex 125 mg 10/29/17 10:00 10/30/17 09:36 Ferrlecit IVPB 11/06/17 10:01 125 mg DAILY [facility] Administration Furosemide 20 mg 10/29/17 17:00 10/30/17 09:45 Lasix IVP 20 mg DAILY [facility] Administration Hydralazine HCl 10 mg 10/28/17 02:05 10/30/17 04:00 Apresoline IVP 10 mg Q6H PRN Administration Hypertension Vancomycin/Sodium Chloride 1 gm in 200 mls @ 133 mls/hr 10/25/17 18:00 18:31 Vancomycin 1 Gm/Ns 200 Ml IVPB 10/30/17 18:01 133 mls/hr Q24H [facility] Administration Protocol Folic Acid 1 mg/ Sodium 100.2 mls @ 60 mls/hr 10/27/17 10:00 10/30/17 09:38 Chloride IV 60 mls/hr DAILY [facility] Administration Insulin Human Regular 10 unit/ 1,000.1 mls @ 60 mls/hr 10/30/17 10:00 12:06 Amino Acids IV 10/30/17 18:00 60 mls/hr .[id number] [facility] Administration Insulin Human Regular 10 unit/ 1,010.1 mls @ 60 mls/hr 10/30/17 18:00 Multivitamins/Vitamin C 10 ml IV 10/31/17 10:00 / Amino Acids .[id number] [facility] Insulin Human Regular 10 unit/ 1,000.1 mls @ 60 mls/hr 10/31/17 10:00 Amino Acids IV 10/31/17 17:59 .[id number] [facility] Insulin Aspart 0 unit 10/26/17 18:00 10/30/17 12:16 Novolog SC 4 unit Q6 [facility] Administration Protocol Metoprolol Tartrate 5 mg 10/26/17 21:15 10/30/17 14:18 Lopressor IVP 5 mg Q6H [facility] Administration Morphine Sulfate 2 mg 10/28/17 20:19 10/30/17 09:53 Morphine IVP 2 mg Q4 PRN Administration Pain, moderate (4-7) Mupirocin 0.5 gm 10/21/17 10:00 10/30/17 09:35 Bactroban 2% Nasal BROOK 0.5 gm BID [facility] Administration Nitroglycerin 1 ea 10/28/17 00:00 10/30/17 12:04 Nitro-Bid 2% Oint TOP 1 ea Q6 [facility] Administration Ondansetron HCl 4 mg 10/27/17 19:35 10/30/17 08:51 Zofran Inj IVP 4 mg Q6H PRN Administration Nausea/Vomiting Pantoprazole Sodium 40 mg 10/25/17 18:00 10/30/17 05:07 Protonix Inj IVP 40 mg Q12H [facility] Administration Phenytoin 100 mg 10/18/17 20:45 10/30/17 13:00 Dilantin IVP 100 mg Q8H [facility] Administration - Patient Studies Lab Studies: Lab Studies 10/30/17 10/30/17 10/30/17 Range/Units 11:29 05:56 05:56 WBC 9.8 (4.8-10.8) K/uL RBC 3.75 L (3.80-5.20) Mil/uL Hgb 11.0 (11.0-16.0) g/dL Hct 32.6 L (34.0-47.0) % MCV 87.1 (81.0-99.0) fL MCH 29.2 (27.0-31.0) pg MCHC 33.6 (33.0-37.0) g/dL RDW 15.7 H (11.5-14.5) % Plt Count 367 (130-400) K/uL MPV 8.3 (7.2-11.7) fL Neut % (Auto) 80.5 H (50.0-75.0) % Lymph % (Auto) 10.3 L (20.0-40.0) % Haakon % (Auto) 5.4 (0.0-10.0) % Eos % (Auto) 2.6 (0.0-4.0) % Baso % (Auto) 1.2 (0.0-2.0) % Neut # (Auto) 7.9 H (1.8-7.0) K/uL Lymph # (Auto) 1.0 (1.0-4.3) K/uL Haakon # (Auto) 0.5 (0.0-0.8) K/uL Eos # (Auto) 0.3 (0.0-0.7) K/uL Baso # (Auto) 0.1 (0.0-0.2) K/uL Sodium 136 (132-148) mmol/L Potassium 3.5 L (3.6-5.2) mmol/L Chloride 100 (98-107) mmol/L Carbon Dioxide 23 (22-30) mmol/L Anion Gap 17 (10-20) BUN 15 (7-17) mg/dL Creatinine 0.8 (0.7-1.2) mg/dL Est GFR ( Amer) > 60 Est GFR (Non-Af Amer) > 60 POC Glucose (mg/dL) 244 H (65-110) mg/dL Random Glucose 291 H (65-105) mg/dL Calcium 8.5 L (8.6-10.4) mg/dl Phosphorus 3.0 (2.5-4.5) mg/dL Magnesium 1.6 (1.6-2.3) mg/dL Total Bilirubin 0.6 (0.2-1.3) mg/dL AST 31 (14-36) U/L ALT < 6 L (9-52) U/L Alkaline Phosphatase 116 (38-126) U/L Total Protein 6.6 (6.3-8.3) g/dL Albumin 2.9 L (3.5-5.0) g/dL Globulin 3.6 (2.2-3.9) gm/dL Albumin/Globulin Ratio 0.8 L (1.0-2.1) 10/30/17 10/29/17 10/29/17 Range/Units 05:28 23:43 17:37 WBC (4.8-10.8) K/uL RBC (3.80-5.20) Mil/uL Hgb (11.0-16.0) g/dL Hct (34.0-47.0) % MCV (81.0-99.0) fL MCH (27.0-31.0) pg MCHC (33.0-37.0) g/dL RDW (11.5-14.5) % Plt Count (130-400) K/uL MPV (7.2-11.7) fL Neut % (Auto) (50.0-75.0) % Lymph % (Auto) (20.0-40.0) % Haakon % (Auto) (0.0-10.0) % Eos % (Auto) (0.0-4.0) % Baso % (Auto) (0.0-2.0) % Neut # (Auto) (1.8-7.0) K/uL Lymph # (Auto) (1.0-4.3) K/uL Haakon # (Auto) (0.0-0.8) K/uL Eos # (Auto) (0.0-0.7) K/uL Baso # (Auto) (0.0-0.2) K/uL Sodium (132-148) mmol/L Potassium (3.6-5.2) mmol/L Chloride (98-107) mmol/L Carbon Dioxide (22-30) mmol/L Anion Gap (10-20) BUN (7-17) mg/dL Creatinine (0.7-1.2) mg/dL Est GFR ( Amer) Est GFR (Non-Af Amer) POC Glucose (mg/dL) 291 H 173 H 242 H (65-110) mg/dL Random Glucose (65-105) mg/dL Calcium (8.6-10.4) mg/dl Phosphorus (2.5-4.5) mg/dL Magnesium (1.6-2.3) mg/dL Total Bilirubin (0.2-1.3) mg/dL AST (14-36) U/L ALT (9-52) U/L Alkaline Phosphatase (38-126) U/L Total Protein (6.3-8.3) g/dL Albumin (3.5-5.0) g/dL Globulin (2.2-3.9) gm/dL Albumin/Globulin Ratio (1.0-2.1) Laboratory Results - last 24 hr 10/29/17 10/29/17 10/30/17 17:37 23:43 05:28 WBC RBC Hgb Hct MCV MCH MCHC RDW Plt Count MPV Neut % (Auto) Lymph % (Auto) Haakon % (Auto) Eos % (Auto) Baso % (Auto) Neut # (Auto) Lymph # (Auto) Haakon # (Auto) Eos # (Auto) Baso # (Auto) Sodium Potassium Chloride Carbon Dioxide Anion Gap BUN Creatinine Est GFR ( Amer) Est GFR (Non-Af Amer) POC Glucose (mg/dL) 242 H 173 H 291 H Random Glucose Calcium Phosphorus Magnesium Total Bilirubin AST ALT Alkaline Phosphatase Total Protein Albumin Globulin Albumin/Globulin Ratio 10/30/17 10/30/17 10/30/17 05:56 05:56 11:29 WBC 9.8 RBC 3.75 L Hgb 11.0 Hct 32.6 L MCV 87.1 MCH 29.2 MCHC 33.6 RDW 15.7 H Plt Count 367 MPV 8.3 Neut % (Auto) 80.5 H Lymph % (Auto) 10.3 L Haakon % (Auto) 5.4 Eos % (Auto) 2.6 Baso % (Auto) 1.2 Neut # (Auto) 7.9 H Lymph # (Auto) 1.0 Haakon # (Auto) 0.5 Eos # (Auto) 0.3 Baso # (Auto) 0.1 Sodium 136 Potassium 3.5 L Chloride 100 Carbon Dioxide 23 Anion Gap 17 BUN 15 Creatinine 0.8 Est GFR ( Amer) > 60 Est GFR (Non-Af Amer) > 60 POC Glucose (mg/dL) 244 H Random Glucose 291 H Calcium 8.5 L Phosphorus 3.0 Magnesium 1.6 Total Bilirubin 0.6 AST 31 ALT < 6 L Alkaline Phosphatase 116 Total Protein 6.6 Albumin 2.9 L Globulin 3.6 Albumin/Globulin Ratio 0.8 L Fingerstick Blood Sugar Results: 244 Critical Care Progress Note - Nutrition Nutrition: Nutrition Category Date Time Status Soft [Dysphagia/Modified Consistency Diet] [DIET] Diets 10/30/17 Dinner Active Assessment/Plan - Assessment and Plan (Free Text) Assessment: Patient is a 57 year old female with past medical history of Diabetes, Mechanical aortic/mitral valve, chronic smoker, seizure disorder, PVD presented to the hospital initially for left toe infection. Was started on heparin drip. While on the floor patient started having bloody bowel movements. All anticoagulation on hold. Went for EGD prior which showed non-bleeding gastric ulcers and duodenitis. Transferred to the ICU for further monitoring. On 10/24/17 , patient underwent exploratory laparotomy where a questionable lesion proximal to the ligament of Trietz was resected as well as the distal small bowel in an effort to stop the patient's GI bleed. The regions were then anastomosed. Neuro AAOx3 Seizure disorder on Dilantin 100 mg IV Q8 Cardio Monitor BP History of mitral and aortic mechanical valves, currently holding anticoagulation due to significant GI bleed Lopressor 5 mg IV Q6H with holding parameters Vasotec 1.25 mg IV Q6H with holding parameters Lasix 20 mg IV daily Pulmonary saturating well on room air GI Protonix 40 mg IV Q12H Prior EGD showed multiple non-bleeding gastric ulcers and duodenitis Prior colonoscopy had inadequate preparation but did show much melena/coffee ground material throughout the colon Repeat EGD up to the jejunum negative However, repeat colonoscopy showed fresh pooling of blood from the region of the ileocecal valve indicating likely small bowel bleed Surgery advanced to clear liquid diet ID Left foot wound grew MRSA Finished course of Vancomycin Contact precaution Endocrine Novolog sliding scale [id number] dose Accuchecks Q6H due to PPN Heme/Onc Hematology consult in place Patient receiving IV iron Continue to monitor GI/DVT Prophylaxis Lovenox 60 mg SC [id number] be progressed gradually before switching to Coumadin to assess for possible bleeding Protonix 40 mg IV Q12H Disposition: Progress the anticoagulation gradually Discussed with Dr. Marie <Ryland Marie - Last Filed: 11/06/17 09:01> CCU Objective - Vital Signs / Intake & Output Vital Signs (Last 4 hours): Vital Signs Temp Pulse Resp BP Pulse Ox 11/06/17 07:00 98.8 F 76 20 137/72 99 Intake and Output (Last 8hrs): Intake & Output 11/05/17 11/06/17 11/06/17 22:59 06:59 14:59 Intake Total 440 Balance 440 Weight 205 lb Intake: Intake, IV Amount 200 Right Upper arm 200 Oral 240 Other: # Voids Urine, Voided 1 - Medications Active Medications: Active Medications Generic Name Dose Route Start Last Admin Trade Name Freq PRN Reason Stop Dose Admin Al Hydrox/Mg Hydrox/Simethicone 30 ml 10/29/17 08:25 10/30/17 17:32 Maalox Plus 30 Ml PO 30 ml Q6H PRN Administration Indigestion / Heartburn Amlodipine Besylate 10 mg 10/15/17 10:00 10/20/17 09:57 Norvasc PO Not Given DAILY [facility] Enoxaparin Sodium 90 mg 11/02/17 14:00 11/05/17 09:56 Lovenox SC 90 mg Q12 [facility] Administration Ferric Sodium Gluconate Complex 125 mg 10/29/17 10:00 11/05/17 09:55 Ferrlecit IVPB 11/06/17 10:01 125 mg DAILY [facility] Administration Hydralazine HCl 10 mg 10/28/17 02:05 10/30/17 17:37 Apresoline IVP 10 mg Q6H PRN Administration Hypertension Folic Acid 1 mg/ Sodium 100.2 mls @ 60 mls/hr 10/27/17 10:00 11/05/17 09:55 Chloride IV 60 mls/hr DAILY [facility] Administration Insulin Aspart 0 unit 10/26/17 18:00 11/06/17 05:55 Novolog SC 4 unit Q6 [facility] Administration Protocol Losartan Potassium 50 mg 11/02/17 10:08 11/05/17 09:56 Cozaar PO 50 mg DAILY [facility] Administration Metoprolol Succinate 25 mg 11/02/17 10:06 11/05/17 09:56 Toprol Xl PO 25 mg DAILY [facility] Administration Mupirocin 0.5 gm 10/21/17 10:00 11/05/17 17:29 Bactroban 2% Nasal BROOK 0.5 gm BID [facility] Administration Nitroglycerin 1 ea 10/28/17 00:00 11/06/17 05:46 Nitro-Bid 2% Oint TOP 1 ea Q6 [facility] Administration Ondansetron HCl 4 mg 10/27/17 19:35 10/30/17 08:51 Zofran Inj IVP 4 mg Q6H PRN Administration Nausea/Vomiting Oxycodone/Acetaminophen 1 tab 11/04/17 11:37 11/06/17 07:55 Percocet 5/325 Mg Tab PO 11/07/17 11:38 1 tab Q6H PRN Administration Pain, moderate (4-7) Pantoprazole Sodium 40 mg 10/25/17 18:00 11/06/17 05:46 Protonix Inj IVP 40 mg Q12H [facility] Administration Phenytoin 100 mg 10/18/17 20:45 11/06/17 04:45 Dilantin IVP 100 mg Q8H [facility] Administration - Patient Studies Lab Studies: Lab Studies 11/06/17 11/06/17 11/05/17 Range/Units 07:18 05:49 23:58 WBC 7.3 (4.8-10.8) K/uL RBC 3.14 L (3.80-5.20) Mil/uL Hgb 9.2 L (11.0-16.0) g/dL Hct 27.5 L (34.0-47.0) % MCV 87.5 (81.0-99.0) fL MCH 29.4 (27.0-31.0) pg MCHC 33.6 (33.0-37.0) g/dL RDW 16.1 H (11.5-14.5) % Plt Count 328 (130-400) K/uL MPV 8.5 (7.2-11.7) fL POC Glucose (mg/dL) 224 H 241 H (65-110) mg/dL Vancomycin Trough (5.0-10.0) ug/mL 11/05/17 11/05/17 11/05/17 Range/Units 17:33 17:18 11:17 WBC (4.8-10.8) K/uL RBC (3.80-5.20) Mil/uL Hgb (11.0-16.0) g/dL Hct (34.0-47.0) % MCV (81.0-99.0) fL MCH (27.0-31.0) pg MCHC (33.0-37.0) g/dL RDW (11.5-14.5) % Plt Count (130-400) K/uL MPV (7.2-11.7) fL POC Glucose (mg/dL) 159 H 212 H (65-110) mg/dL Vancomycin Trough 9.3 (5.0-10.0) ug/mL Laboratory Results - last 24 hr 11/05/17 11/05/17 11/05/17 11:17 17:18 17:33 WBC RBC Hgb Hct MCV MCH MCHC RDW Plt Count MPV POC Glucose (mg/dL) 212 H 159 H Vancomycin Trough 9.3 11/05/17 11/06/17 11/06/17 23:58 05:49 07:18 WBC 7.3 RBC 3.14 L Hgb 9.2 L Hct 27.5 L MCV 87.5 MCH 29.4 MCHC 33.6 RDW 16.1 H Plt Count 328 MPV 8.5 POC Glucose (mg/dL) 241 H 224 H Vancomycin Trough Critical Care Progress Note - Nutrition Nutrition: Nutrition Category Date Time Status NPO Diet [DIET] Diets 11/06/17 Breakfast Active Attending/Attestation - Attestation I have personally seen and examined this patient.: Yes I have fully participated in the care of the patient.: Yes I have reviewed all pertinent clinical information: Yes
[2017-10-30] MEDS: Vancomycin 1 gm/NS 200 ml 1 GM/200 ML BAG IVPB SCH (17:59)
[2017-10-30] MEDS ORDERED: PPN IV SCH (18:00)
--- NOTE | 2017-10-30 22:47 | CP.PCM.PN ---
Subjective - Date & Time of Evaluation Date of Evaluation: 10/30/17 Time of Evaluation: 18:30 - Subjective Subjective: PT is on TPN, pt is having tachycardia, some abdominal pain, generalized weakness, she is denying any shortness of breath Objective - Vital Signs/Intake and Output Vital Signs (last 24 hours): Temp Pulse Resp BP Pulse Ox 98.6 F 93 H 18 188/71 H 92 L 10/30/17 20:00 10/30/17 22:00 10/30/17 22:00 10/30/17 21:40 10/30/17 22:00 Intake and Output: 10/30/17 10/31/17 18:59 06:59 Intake Total 1210 240 Output Total 600 400 Balance 610 -160 - Medications Medications: Current Medications Al Hydrox/Mg Hydrox/Simethicone (Maalox Plus 30 Ml) 30 ml PO Q6H PRN PRN Reason: Indigestion / Heartburn Last Admin: 10/30/17 17:32 Dose: 30 ml Amlodipine Besylate (Norvasc) 10 mg PO DAILY [facility] Last Admin: 10/20/17 09:57 Dose: Not Given Enalaprilat (Vasotec) 1.25 mg IV Q6 [facility] Last Admin: 10/30/17 18:51 Dose: 1.25 mg Enoxaparin Sodium (Lovenox) 60 mg SC Q12 [facility] Last Admin: 10/30/17 21:17 Dose: 60 mg Ferric Sodium Gluconate Complex (Ferrlecit) 125 mg IVPB DAILY [facility] Stop: 11/06/17 10:01 Last Admin: 10/30/17 09:36 Dose: 125 mg Furosemide (Lasix) 20 mg IVP DAILY [facility] Last Admin: 10/30/17 09:45 Dose: 20 mg Hydralazine HCl (Apresoline) 10 mg IVP Q6H PRN PRN Reason: Hypertension Last Admin: 10/30/17 17:37 Dose: 10 mg Folic Acid 1 mg/ Sodium (Chloride) 100.2 mls @ 60 mls/hr IV DAILY [facility] Last Admin: 10/30/17 09:38 Dose: 60 mls/hr Insulin Human Regular 10 unit/Multivitamins/Vitamin C 10 ml / Amino Acids 1, 010.1 mls @ 60 mls/hr IV .[id number] [facility] Stop: 10/31/17 10:00 Last Admin: 10/30/17 17:33 Dose: 60 mls/hr Insulin Human Regular 10 unit/ (Amino Acids) 1,000.1 mls @ 60 mls/hr IV .[id number] [facility] Stop: 10/31/17 17:59 Insulin Aspart (Novolog) 0 unit SC Q6 [facility] PRN Reason: Protocol Last Admin: 10/30/17 17:46 Dose: 8 unit Metoprolol Tartrate (Lopressor) 5 mg IVP Q6H [facility] Last Admin: 10/30/17 21:16 Dose: 5 mg Morphine Sulfate (Morphine) 2 mg IVP Q4 PRN PRN Reason: Pain, moderate (4-7) Last Admin: 10/30/17 21:37 Dose: 2 mg Mupirocin (Bactroban 2% Nasal) 0.5 gm BROOK BID [facility] Last Admin: 10/30/17 17:39 Dose: 0.5 gm Nitroglycerin (Nitro-Bid 2% Oint) 1 ea TOP Q6 [facility] Last Admin: 10/30/17 17:40 Dose: 1 ea Ondansetron HCl (Zofran Inj) 4 mg IVP Q6H PRN PRN Reason: Nausea/Vomiting Last Admin: 10/30/17 08:51 Dose: 4 mg Pantoprazole Sodium (Protonix Inj) 40 mg IVP Q12H [facility] Last Admin: 10/30/17 17:58 Dose: 40 mg Phenytoin (Dilantin) 100 mg IVP Q8H [facility] Last Admin: 10/30/17 21:16 Dose: 100 mg - Labs Labs: 10/30/17 05:56 10/30/17 05:56 PT 11.1 SECONDS (9.7-12.2) 10/29/17 06:10 INR 1.0 10/29/17 06:10 APTT 29 SECONDS (21-34) 10/29/17 06:10 - Constitutional Appears: No Acute Distress - Head Exam Head Exam: ATRAUMATIC, NORMAL INSPECTION, NORMOCEPHALIC - Eye Exam Eye Exam: EOMI, Normal appearance, PERRL Pupil Exam: NORMAL ACCOMODATION, PERRL - Respiratory Exam Respiratory Exam: Decreased Breath Sounds, Rales, NORMAL BREATHING PATTERN - Cardiovascular Exam Cardiovascular Exam: Tachycardia, +S1, +S2 Additional comments: mettalic sound - GI/Abdominal Exam GI & Abdominal Exam: Soft, Normal Bowel Sounds. absent: Tenderness - Rectal Exam Rectal Exam: Deferred Assessment and Plan (1) GI bleed Status: Acute (2) Anemia Status: Acute (3) Toe gangrene Status: Acute (4) CAD (coronary artery disease) Status: Chronic
--- NOTE | 2017-10-30 23:01 | CP.PCM.PN ---
Subjective - Date & Time of Evaluation Date of Evaluation: 10/30/17 Time of Evaluation: 20:00 - Subjective Subjective: Feeling nauseous with abdominal pain. Objective - Vital Signs/Intake and Output Vital Signs (last 24 hours): Temp Pulse Resp BP Pulse Ox 98.6 F 93 H 18 188/71 H 92 L 10/30/17 20:00 10/30/17 22:00 10/30/17 22:00 10/30/17 21:40 10/30/17 22:00 Intake and Output: 10/30/17 10/31/17 18:59 06:59 Intake Total 1210 240 Output Total 600 400 Balance 610 -160 - Medications Medications: Current Medications Al Hydrox/Mg Hydrox/Simethicone (Maalox Plus 30 Ml) 30 ml PO Q6H PRN PRN Reason: Indigestion / Heartburn Last Admin: 10/30/17 17:32 Dose: 30 ml Amlodipine Besylate (Norvasc) 10 mg PO DAILY [facility] Last Admin: 10/20/17 09:57 Dose: Not Given Enalaprilat (Vasotec) 1.25 mg IV Q6 [facility] Last Admin: 10/30/17 18:51 Dose: 1.25 mg Enoxaparin Sodium (Lovenox) 60 mg SC Q12 [facility] Last Admin: 10/30/17 21:17 Dose: 60 mg Ferric Sodium Gluconate Complex (Ferrlecit) 125 mg IVPB DAILY [facility] Stop: 11/06/17 10:01 Last Admin: 10/30/17 09:36 Dose: 125 mg Furosemide (Lasix) 20 mg IVP DAILY [facility] Last Admin: 10/30/17 09:45 Dose: 20 mg Hydralazine HCl (Apresoline) 10 mg IVP Q6H PRN PRN Reason: Hypertension Last Admin: 10/30/17 17:37 Dose: 10 mg Folic Acid 1 mg/ Sodium (Chloride) 100.2 mls @ 60 mls/hr IV DAILY [facility] Last Admin: 10/30/17 09:38 Dose: 60 mls/hr Insulin Human Regular 10 unit/Multivitamins/Vitamin C 10 ml / Amino Acids 1, 010.1 mls @ 60 mls/hr IV .[id number] [facility] Stop: 10/31/17 10:00 Last Admin: 10/30/17 17:33 Dose: 60 mls/hr Insulin Human Regular 10 unit/ (Amino Acids) 1,000.1 mls @ 60 mls/hr IV .[id number] [facility] Stop: 10/31/17 17:59 Insulin Aspart (Novolog) 0 unit SC Q6 [facility] PRN Reason: Protocol Last Admin: 10/30/17 17:46 Dose: 8 unit Metoprolol Tartrate (Lopressor) 5 mg IVP Q6H [facility] Last Admin: 10/30/17 21:16 Dose: 5 mg Morphine Sulfate (Morphine) 2 mg IVP Q4 PRN PRN Reason: Pain, moderate (4-7) Last Admin: 10/30/17 21:37 Dose: 2 mg Mupirocin (Bactroban 2% Nasal) 0.5 gm BROOK BID [facility] Last Admin: 10/30/17 17:39 Dose: 0.5 gm Nitroglycerin (Nitro-Bid 2% Oint) 1 ea TOP Q6 [facility] Last Admin: 10/30/17 17:40 Dose: 1 ea Ondansetron HCl (Zofran Inj) 4 mg IVP Q6H PRN PRN Reason: Nausea/Vomiting Last Admin: 10/30/17 08:51 Dose: 4 mg Pantoprazole Sodium (Protonix Inj) 40 mg IVP Q12H [facility] Last Admin: 10/30/17 17:58 Dose: 40 mg Phenytoin (Dilantin) 100 mg IVP Q8H [facility] Last Admin: 10/30/17 21:16 Dose: 100 mg - Labs Labs: 10/30/17 05:56 10/30/17 05:56 PT 11.1 SECONDS (9.7-12.2) 10/29/17 06:10 INR 1.0 10/29/17 06:10 APTT 29 SECONDS (21-34) 10/29/17 06:10 - Head Exam Head Exam: ATRAUMATIC - Eye Exam Eye Exam: Normal appearance - ENT Exam ENT Exam: Mucous Membranes Dry - Respiratory Exam Respiratory Exam: NORMAL BREATHING PATTERN - Cardiovascular Exam Cardiovascular Exam: +S1, +S2 - GI/Abdominal Exam GI & Abdominal Exam: Normal Bowel Sounds Assessment and Plan (1) Anemia Assessment & Plan: multifactorial; hypoproliferative erythroid response likely chronic iron deficiency from chronic slow GI blood loss while on anticoagulation exacerbated by acute faster GI bleeding 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
[2017-10-31] MEDS: (Novolog) Insulin Aspart, Recombinant 100 u/ml 10 ml vial SC SCH ×4 (00:40→18:13)
[2017-10-31] MEDS: Metoprolol 1 mg/ml Inj IVP SCH ×4 (03:13→21:00)
[2017-10-31] MEDS: Morphine 4 MG/ML VIAL IVP PRN ×3 (03:17→18:14)
[2017-10-31] MEDS: Enalaprilat 2.5 MG/2 ML IV SCH ×3 (04:59→18:42)
[2017-10-31] MEDS: Nitroglycerin 2% Ointment Foilpak UD TOP SCH ×3 (05:00→18:15)
[2017-10-31] MEDS: Phenytoin 100 mg/2 ml Inj IVP SCH ×3 (05:23→21:00)
[2017-10-31 06:22] LABS: BASO # 0.1 K/uL (0.0-0.2); BASO % 1.3 % (0.0-2.0); EOS # 0.4 K/uL (0.0-0.7); EOS % 5.2 % (0.0-4.0); HEMOGLOBIN 9.9 g/dL (11.0-16.0); LYMPH # 1.3 K/uL (1.0-4.3); LYMPH % 16.5 % (20.0-40.0); MEAN CELL VOLUME 86.1 fL (81.0-99.0); MEAN CORPUSCULAR HGB CONC 33.7 g/dL (33.0-37.0); MEAN PLATELET VOLUME 8.8 fL (7.2-11.7); MONO # 0.9 K/uL (0.0-0.8); MONO % 10.6 % (0.0-10.0); NEUT # 5.3 K/uL (1.8-7.0); NEUT % 66.4 % (50.0-75.0); RBC 3.42 Mil/uL (3.80-5.20); RED CELL DISTRIBUTION WIDTH 15.8 % (11.5-14.5); WHITE BLOOD COUNT 8.1 K/uL (4.8-10.8)
[2017-10-31 06:41] LABS: ALB/GLOB RATIO 0.8 (1.0-2.1); ALBUMIN 2.6 g/dL (3.5-5.0); ALT/SGPT < 6 U/L (9-52); AST/SGOT 22 U/L (14-36); BLOOD UREA NITROGEN 18 mg/dL (7-17); CALCIUM 8.2 mg/dl (8.6-10.4); GFR AFRICAN-AMERICAN > 60; GFR NON-AFRICAN AMERICAN > 60
[2017-10-31] MEDS ORDERED: PPN IV SCH ×2 (10:00→18:00)
[2017-10-31] MEDS: Mupirocin 2% Ointment (NASAL) NAS SCH ×2 (10:00→18:19)
--- NOTE | 2017-10-31 10:13 | CP.PCM.PN ---
Subjective - Date & Time of Evaluation Date of Evaluation: 10/31/17 Time of Evaluation: 09:00 - Subjective Subjective: events noted still with pain no fever GI on board IV antibiotics renewed Objective - Vital Signs/Intake and Output Vital Signs (last 24 hours): Temp Pulse Resp BP Pulse Ox 98.5 F 91 H 20 150/51 L 95 10/31/17 04:00 10/31/17 06:00 10/31/17 06:00 10/31/17 05:31 10/31/17 06:00 Intake and Output: 10/31/17 10/31/17 06:59 18:59 Intake Total 780 Output Total 700 Balance 80 - Medications Medications: Current Medications Al Hydrox/Mg Hydrox/Simethicone (Maalox Plus 30 Ml) 30 ml PO Q6H PRN PRN Reason: Indigestion / Heartburn Last Admin: 10/30/17 17:32 Dose: 30 ml Amlodipine Besylate (Norvasc) 10 mg PO DAILY [facility] Last Admin: 10/20/17 09:57 Dose: Not Given Enalaprilat (Vasotec) 1.25 mg IV Q6 [facility] Last Admin: 10/31/17 04:59 Dose: 1.25 mg Enoxaparin Sodium (Lovenox) 60 mg SC Q12 [facility] Last Admin: 10/30/17 21:17 Dose: 60 mg Ferric Sodium Gluconate Complex (Ferrlecit) 125 mg IVPB DAILY [facility] Stop: 11/06/17 10:01 Last Admin: 10/30/17 09:36 Dose: 125 mg Furosemide (Lasix) 20 mg IVP DAILY [facility] Last Admin: 10/30/17 09:45 Dose: 20 mg Hydralazine HCl (Apresoline) 10 mg IVP Q6H PRN PRN Reason: Hypertension Last Admin: 10/30/17 17:37 Dose: 10 mg Folic Acid 1 mg/ Sodium (Chloride) 100.2 mls @ 60 mls/hr IV DAILY [facility] Last Admin: 10/30/17 09:38 Dose: 60 mls/hr Insulin Human Regular 10 unit/ (Amino Acids) 1,000.1 mls @ 60 mls/hr IV .[id number] [facility] Stop: 10/31/17 17:59 Insulin Aspart (Novolog) 0 unit SC Q6 [facility] PRN Reason: Protocol Last Admin: 10/31/17 05:00 Dose: Not Given Metoprolol Tartrate (Lopressor) 5 mg IVP Q6H [facility] Last Admin: 10/31/17 03:13 Dose: 5 mg Morphine Sulfate (Morphine) 2 mg IVP Q4 PRN PRN Reason: Pain, moderate (4-7) Last Admin: 10/31/17 03:17 Dose: 2 mg Mupirocin (Bactroban 2% Nasal) 0.5 gm BROOK BID [facility] Last Admin: 10/30/17 17:39 Dose: 0.5 gm Nitroglycerin (Nitro-Bid 2% Oint) 1 ea TOP Q6 [facility] Last Admin: 10/31/17 05:00 Dose: 1 ea Ondansetron HCl (Zofran Inj) 4 mg IVP Q6H PRN PRN Reason: Nausea/Vomiting Last Admin: 10/30/17 08:51 Dose: 4 mg Pantoprazole Sodium (Protonix Inj) 40 mg IVP Q12H [facility] Last Admin: 10/31/17 05:01 Dose: 40 mg Phenytoin (Dilantin) 100 mg IVP Q8H [facility] Last Admin: 10/31/17 05:23 Dose: 100 mg - Labs Labs: 10/31/17 06:12 10/31/17 06:14 PT 11.1 SECONDS (9.7-12.2) 10/29/17 06:10 INR 1.0 10/29/17 06:10 APTT 29 SECONDS (21-34) 10/29/17 06:10 - Constitutional Appears: Non-toxic, Chronically Ill - Head Exam Head Exam: NORMOCEPHALIC - Eye Exam Eye Exam: PERRL. absent: Scleral icterus - ENT Exam ENT Exam: Mucous Membranes Dry - Neck Exam Neck Exam: absent: Lymphadenopathy - Respiratory Exam Respiratory Exam: Decreased Breath Sounds - Cardiovascular Exam Cardiovascular Exam: REGULAR RHYTHM - GI/Abdominal Exam GI & Abdominal Exam: Distended, Soft, Tenderness, Diminished Bowel Sounds - Rectal Exam Rectal Exam: Deferred - Exam Exam: NORMAL INSPECTION - Back Exam Back Exam: absent: CVA tenderness (L), CVA tenderness (R) - Neurological Exam Neurological Exam: Alert, Awake, CN II-XII Intact, Oriented x3 - Psychiatric Exam Psychiatric exam: Depressed Assessment and Plan (1) Anemia Status: Acute (2) Toe gangrene Status: Acute (3) CAD (coronary artery disease) Status: Chronic (4) Dyslipidemia Status: Chronic (5) PVD (peripheral vascular disease) Status: Chronic (6) Uncontrolled diabetes mellitus Status: Chronic - Assessment and Plan (Free Text) Assessment: will cont iv antibiotics
[2017-10-31] MEDS: Enoxaparin 60 mg Syringe SC SCH ×2 (10:38→21:01)
[2017-10-31] MEDS ORDERED: Vancomycin 1 gm/NS 200 ml 1 GM/200 ML BAG IVPB SCH (12:00)
--- NOTE | 2017-10-31 12:36 | CP.CCUPN ---
<Nicolas Zavala - Last Filed: 10/31/17 12:32> CCU Subjective - Physician Review Subjective (Free Text): 10/30/17 16:48 Patient seen and examined. Patient feels overall bad this morning with nausea/ vomiting after meals. 10/31/17 12:32 Patient seen and examined. Patient feels much better today and was seen this morning after an advancement in diet. She appeared to tolerate a soft diet this morning. CCU Objective - Vital Signs / Intake & Output Vital Signs (Last 4 hours): Vital Signs BP 10/31/17 10:38 140/57 L Intake and Output (Last 8hrs): Intake & Output 10/30/17 10/31/17 10/31/17 22:59 06:59 14:59 Intake Total 710 540 Output Total 1000 300 Balance -290 240 Weight 208 lb 8 oz Intake: Intake, IV Amount 480 540 [place] Right Picc line 480 540 Oral 230 Output: Urine 1000 300 Urine, Voided 1000 300 Other: # Bowel Movements 1 - Physical Exam Head: Positive for: Atraumatic, Normocephalic Pupils: Positive for: PERRL Extroacular Muscles: Positive for: EOMI Conjunctiva: Positive for: Normal Mouth: Positive for: Moist Mucous Membranes Nose (External): Positive for: Other (NGT in place) Neck: Positive for: Normal Range of Motion Respiratory/Chest: Positive for: Clear to Auscultation, Good Air Exchange. Negative for: Respiratory Distress, Accessory Muscle Use Cardiovascular: Positive for: Regular Rate and Rhythm, Normal S1, S2, Other ( systolic murmur). Negative for: Tachycardic Abdomen: Positive for: Normal Bowel Sounds. Negative for: Tenderness, Distention Upper Extremity: Positive for: Normal Inspection Lower Extremity: Positive for: Other (Right toe dressing intact) Neurological: Positive for: GCS=15 Skin: Positive for: Warm, Dry, Normal Color Psychiatric: Positive for: Alert, Oriented x 3 - Medications Active Medications: Active Medications Generic Name Dose Route Start Last Admin Trade Name Freq PRN Reason Stop Dose Admin Al Hydrox/Mg Hydrox/Simethicone 30 ml 10/29/17 08:25 10/30/17 17:32 Maalox Plus 30 Ml PO 30 ml Q6H PRN Administration Indigestion / Heartburn Amlodipine Besylate 10 mg 10/15/17 10:00 10/20/17 09:57 Norvasc PO Not Given DAILY [facility] Enalaprilat 1.25 mg 10/27/17 12:26 10/31/17 04:59 Vasotec IV 1.25 mg Q6 [facility] Administration Enoxaparin Sodium 60 mg 10/30/17 12:00 10/31/17 10:38 Lovenox SC 60 mg Q12 [facility] Administration Ferric Sodium Gluconate Complex 125 mg 10/29/17 10:00 10/30/17 09:36 Ferrlecit IVPB 11/06/17 10:01 125 mg DAILY [facility] Administration Furosemide 20 mg 10/29/17 17:00 10/31/17 10:38 Lasix IVP 20 mg DAILY [facility] Administration Hydralazine HCl 10 mg 10/28/17 02:05 10/30/17 17:37 Apresoline IVP 10 mg Q6H PRN Administration Hypertension Folic Acid 1 mg/ Sodium 100.2 mls @ 60 mls/hr 10/27/17 10:00 10/31/17 10:39 Chloride IV 60 mls/hr DAILY [facility] Administration Insulin Human Regular 10 unit/ 1,000.1 mls @ 60 mls/hr 10/31/17 10:00 Amino Acids IV 10/31/17 17:59 .[id number] [facility] Insulin Human Regular 10 unit/ 1,010.1 mls @ 60 mls/hr 10/31/17 18:00 Multivitamins/Vitamin C 10 ml IV 11/01/17 10:00 / Amino Acids .[id number] [facility] Insulin Human Regular 10 unit/ 1,000.1 mls @ 60 mls/hr 11/01/17 10:00 Amino Acids IV 11/01/17 17:59 .[id number] [facility] Vancomycin/Sodium Chloride 1 gm in 200 mls @ 133.333 mls/hr 10/31/17 18:00 Vancomycin 1 Gm/Ns 200 Ml IVPB 11/05/17 18:01 Q24H [facility] Protocol Insulin Aspart 0 unit 10/26/17 18:00 10/31/17 05:00 Novolog SC Not Given Q6 [facility] Protocol Metoprolol Tartrate 5 mg 10/26/17 21:15 10/31/17 10:38 Lopressor IVP 5 mg Q6H [facility] Administration Morphine Sulfate 2 mg 10/28/17 20:19 10/31/17 11:41 Morphine IVP 2 mg Q4 PRN Administration Pain, moderate (4-7) Mupirocin 0.5 gm 10/21/17 10:00 10/30/17 17:39 Bactroban 2% Nasal BROOK 0.5 gm BID [facility] Administration Nitroglycerin 1 ea 10/28/17 00:00 10/31/17 05:00 Nitro-Bid 2% Oint TOP 1 ea Q6 [facility] Administration Ondansetron HCl 4 mg 10/27/17 19:35 10/30/17 08:51 Zofran Inj IVP 4 mg Q6H PRN Administration Nausea/Vomiting Pantoprazole Sodium 40 mg 10/25/17 18:00 10/31/17 05:01 Protonix Inj IVP 40 mg Q12H [facility] Administration Phenytoin 100 mg 10/18/17 20:45 10/31/17 05:23 Dilantin IVP 100 mg Q8H [facility] Administration - Patient Studies Lab Studies: Lab Studies 10/31/17 10/31/17 10/31/17 Range/Units 11:32 06:14 06:12 WBC 8.1 (4.8-10.8) K/uL RBC 3.42 L (3.80-5.20) Mil/uL Hgb 9.9 L (11.0-16.0) g/dL Hct 29.5 L (34.0-47.0) % MCV 86.1 (81.0-99.0) fL MCH 29.0 (27.0-31.0) pg MCHC 33.7 (33.0-37.0) g/dL RDW 15.8 H (11.5-14.5) % Plt Count 332 (130-400) K/uL MPV 8.8 (7.2-11.7) fL Neut % (Auto) 66.4 (50.0-75.0) % Lymph % (Auto) 16.5 L (20.0-40.0) % [place] % (Auto) 10.6 H (0.0-10.0) % Eos % (Auto) 5.2 H (0.0-4.0) % Baso % (Auto) 1.3 (0.0-2.0) % Neut # (Auto) 5.3 (1.8-7.0) K/uL Lymph # (Auto) 1.3 (1.0-4.3) K/uL [place] # (Auto) 0.9 H (0.0-0.8) K/uL Eos # (Auto) 0.4 (0.0-0.7) K/uL Baso # (Auto) 0.1 (0.0-0.2) K/uL Sodium 137 (132-148) mmol/L Potassium 3.4 L (3.6-5.2) mmol/L Chloride 101 (98-107) mmol/L Carbon Dioxide 29 (22-30) mmol/L Anion Gap 11 (10-20) BUN 18 H (7-17) mg/dL Creatinine 0.9 (0.7-1.2) mg/dL Est GFR ( Amer) > 60 Est GFR (Non-Af Amer) > 60 POC Glucose (mg/dL) 214 H (65-110) mg/dL Random Glucose 144 H (65-105) mg/dL Calcium 8.2 L (8.6-10.4) mg/dl Phosphorus 3.0 (2.5-4.5) mg/dL Magnesium 1.8 (1.6-2.3) mg/dL Total Bilirubin 0.5 (0.2-1.3) mg/dL AST 22 (14-36) U/L ALT < 6 L (9-52) U/L Alkaline Phosphatase 90 (38-126) U/L Total Protein 6.1 L (6.3-8.3) g/dL Albumin 2.6 L (3.5-5.0) g/dL Globulin 3.5 (2.2-3.9) gm/dL Albumin/Globulin Ratio 0.8 L (1.0-2.1) 10/31/17 10/31/17 10/30/17 Range/Units 04:50 00:01 17:45 WBC (4.8-10.8) K/uL RBC (3.80-5.20) Mil/uL Hgb (11.0-16.0) g/dL Hct (34.0-47.0) % MCV (81.0-99.0) fL MCH (27.0-31.0) pg MCHC (33.0-37.0) g/dL RDW (11.5-14.5) % Plt Count (130-400) K/uL MPV (7.2-11.7) fL Neut % (Auto) (50.0-75.0) % Lymph % (Auto) (20.0-40.0) % [place] % (Auto) (0.0-10.0) % Eos % (Auto) (0.0-4.0) % Baso % (Auto) (0.0-2.0) % Neut # (Auto) (1.8-7.0) K/uL Lymph # (Auto) (1.0-4.3) K/uL [place] # (Auto) (0.0-0.8) K/uL Eos # (Auto) (0.0-0.7) K/uL Baso # (Auto) (0.0-0.2) K/uL Sodium (132-148) mmol/L Potassium (3.6-5.2) mmol/L Chloride (98-107) mmol/L Carbon Dioxide (22-30) mmol/L Anion Gap (10-20) BUN (7-17) mg/dL Creatinine (0.7-1.2) mg/dL Est GFR ( Amer) Est GFR (Non-Af Amer) POC Glucose (mg/dL) 148 H 288 H 312 H (65-110) mg/dL Random Glucose (65-105) mg/dL Calcium (8.6-10.4) mg/dl Phosphorus (2.5-4.5) mg/dL Magnesium (1.6-2.3) mg/dL Total Bilirubin (0.2-1.3) mg/dL AST (14-36) U/L ALT (9-52) U/L Alkaline Phosphatase (38-126) U/L Total Protein (6.3-8.3) g/dL Albumin (3.5-5.0) g/dL Globulin (2.2-3.9) gm/dL Albumin/Globulin Ratio (1.0-2.1) Laboratory Results - last 24 hr 10/30/17 10/31/17 10/31/17 17:45 00:01 04:50 WBC RBC Hgb Hct MCV MCH MCHC RDW Plt Count MPV Neut % (Auto) Lymph % (Auto) [place] % (Auto) Eos % (Auto) Baso % (Auto) Neut # (Auto) Lymph # (Auto) [place] # (Auto) Eos # (Auto) Baso # (Auto) Sodium Potassium Chloride Carbon Dioxide Anion Gap BUN Creatinine Est GFR ( Amer) Est GFR (Non-Af Amer) POC Glucose (mg/dL) 312 H 288 H 148 H Random Glucose Calcium Phosphorus Magnesium Total Bilirubin AST ALT Alkaline Phosphatase Total Protein Albumin Globulin Albumin/Globulin Ratio 10/31/17 10/31/17 10/31/17 06:12 06:14 11:32 WBC 8.1 RBC 3.42 L Hgb 9.9 L Hct 29.5 L MCV 86.1 MCH 29.0 MCHC 33.7 RDW 15.8 H Plt Count 332 MPV 8.8 Neut % (Auto) 66.4 Lymph % (Auto) 16.5 L [place] % (Auto) 10.6 H Eos % (Auto) 5.2 H Baso % (Auto) 1.3 Neut # (Auto) 5.3 Lymph # (Auto) 1.3 [place] # (Auto) 0.9 H Eos # (Auto) 0.4 Baso # (Auto) 0.1 Sodium 137 Potassium 3.4 L Chloride 101 Carbon Dioxide 29 Anion Gap 11 BUN 18 H Creatinine 0.9 Est GFR ( Amer) > 60 Est GFR (Non-Af Amer) > 60 POC Glucose (mg/dL) 214 H Random Glucose 144 H Calcium 8.2 L Phosphorus 3.0 Magnesium 1.8 Total Bilirubin 0.5 AST 22 ALT < 6 L Alkaline Phosphatase 90 Total Protein 6.1 L Albumin 2.6 L Globulin 3.5 Albumin/Globulin Ratio 0.8 L Fingerstick Blood Sugar Results: 148 Critical Care Progress Note - Nutrition Nutrition: Nutrition Category Date Time Status Soft [Dysphagia/Modified Consistency Diet] [DIET] Diets 10/30/17 Dinner Active Assessment/Plan - Assessment and Plan (Free Text) Assessment: Patient is a 57 year old female with past medical history of Diabetes, Mechanical aortic/mitral valve, chronic smoker, seizure disorder, PVD presented to the hospital initially for left toe infection. Was started on heparin drip. While on the floor patient started having bloody bowel movements. All anticoagulation on hold. Went for EGD prior which showed non-bleeding gastric ulcers and duodenitis. Transferred to the ICU for further monitoring. On 10/24/17 , patient underwent exploratory laparotomy where a questionable lesion proximal to the ligament of Trietz was resected as well as the distal small bowel in an effort to stop the patient's GI bleed. The regions were then anastomosed. Neuro AAOx3 Seizure disorder on Dilantin 100 mg IV Q8 Cardio Monitor BP History of mitral and aortic mechanical valves, currently holding anticoagulation due to significant GI bleed Lopressor 5 mg IV Q6H with holding parameters Vasotec 1.25 mg IV Q6H with holding parameters Lasix 20 mg IV daily Pulmonary saturating well on room air GI Protonix 40 mg IV Q12H Prior EGD showed multiple non-bleeding gastric ulcers and duodenitis Prior colonoscopy had inadequate preparation but did show much melena/coffee ground material throughout the colon Repeat EGD up to the jejunum negative However, repeat colonoscopy showed fresh pooling of blood from the region of the ileocecal valve indicating likely small bowel bleed Surgery advanced to soft diet ID Left foot wound grew MRSA Vancomycin renewed by ID Contact precaution Endocrine Novolog sliding scale Y7V--wdor dose Accuchecks Q6H due to PPN Heme/Onc Hematology consult in place Patient receiving IV iron Continue to monitor GI/DVT Prophylaxis Lovenox 60 mg SC [id number] be progressed gradually before switching to Coumadin to assess for possible bleeding Protonix 40 mg IV Q12H Disposition: Transferred to telemetry Discussed with Dr. Otero <David Otero - Last Filed: 10/31/17 16:06> CCU Objective - Vital Signs / Intake & Output Intake and Output (Last 8hrs): Intake & Output 10/31/17 10/31/17 10/31/17 06:59 14:59 22:59 Intake Total 540 Output Total 300 Balance 240 Weight 208 lb 8 oz Intake: Intake, IV Amount 540 [place] Right Picc line 540 Output: Urine 300 Urine, Voided 300 - Medications Active Medications: Active Medications Generic Name Dose Route Start Last Admin Trade Name Freq PRN Reason Stop Dose Admin Al Hydrox/Mg Hydrox/Simethicone 30 ml 10/29/17 08:25 10/30/17 17:32 Maalox Plus 30 Ml PO 30 ml Q6H PRN Administration Indigestion / Heartburn Amlodipine Besylate 10 mg 10/15/17 10:00 10/20/17 09:57 Norvasc PO Not Given DAILY [facility] Enalaprilat 1.25 mg 10/27/17 12:26 10/31/17 04:59 Vasotec IV 1.25 mg Q6 [facility] Administration Enoxaparin Sodium 60 mg 10/30/17 12:00 10/31/17 10:38 Lovenox SC 60 mg Q12 [facility] Administration Ferric Sodium Gluconate Complex 125 mg 10/29/17 10:00 10/31/17 13:52 Ferrlecit IVPB 11/06/17 10:01 125 mg DAILY [facility] Administration Furosemide 20 mg 10/29/17 17:00 10/31/17 10:38 Lasix IVP 20 mg DAILY [facility] Administration Hydralazine HCl 10 mg 10/28/17 02:05 10/30/17 17:37 Apresoline IVP 10 mg Q6H PRN Administration Hypertension Folic Acid 1 mg/ Sodium 100.2 mls @ 60 mls/hr 10/27/17 10:00 10/31/17 10:39 Chloride IV 60 mls/hr DAILY [facility] Administration Insulin Human Regular 10 unit/ 1,000.1 mls @ 60 mls/hr 10/31/17 10:00 15:45 Amino Acids IV 10/31/17 17:59 60 mls/hr .[id number] [facility] Administration Insulin Human Regular 10 unit/ 1,010.1 mls @ 60 mls/hr 10/31/17 18:00 Multivitamins/Vitamin C 10 ml IV 11/01/17 10:00 / Amino Acids .[id number] [facility] Insulin Human Regular 10 unit/ 1,000.1 mls @ 60 mls/hr 11/01/17 10:00 Amino Acids IV 11/01/17 17:59 .[id number] [facility] Vancomycin/Sodium Chloride 1 gm in 200 mls @ 133.333 mls/hr 10/31/17 18:00 Vancomycin 1 Gm/Ns 200 Ml IVPB 11/05/17 18:01 Q24H [facility] Protocol Insulin Aspart 0 unit 10/26/17 18:00 10/31/17 13:50 Novolog SC 4 unit Q6 [facility] Administration Protocol Metoprolol Tartrate 5 mg 10/26/17 21:15 10/31/17 10:38 Lopressor IVP 5 mg Q6H [facility] Administration Morphine Sulfate 2 mg 10/28/17 20:19 10/31/17 11:41 Morphine IVP 2 mg Q4 PRN Administration Pain, moderate (4-7) Mupirocin 0.5 gm 10/21/17 10:00 10/30/17 17:39 Bactroban 2% Nasal BROOK 0.5 gm BID [facility] Administration Nitroglycerin 1 ea 10/28/17 00:00 10/31/17 13:51 Nitro-Bid 2% Oint TOP 1 ea Q6 [facility] Administration Ondansetron HCl 4 mg 10/27/17 19:35 10/30/17 08:51 Zofran Inj IVP 4 mg Q6H PRN Administration Nausea/Vomiting Pantoprazole Sodium 40 mg 10/25/17 18:00 10/31/17 05:01 Protonix Inj IVP 40 mg Q12H [facility] Administration Phenytoin 100 mg 10/18/17 20:45 10/31/17 13:52 Dilantin IVP 100 mg Q8H [facility] Administration - Patient Studies Lab Studies: Lab Studies 10/31/17 10/31/17 10/31/17 Range/Units 11:32 06:14 06:12 WBC 8.1 (4.8-10.8) K/uL RBC 3.42 L (3.80-5.20) Mil/uL Hgb 9.9 L (11.0-16.0) g/dL Hct 29.5 L (34.0-47.0) % MCV 86.1 (81.0-99.0) fL MCH 29.0 (27.0-31.0) pg MCHC 33.7 (33.0-37.0) g/dL RDW 15.8 H (11.5-14.5) % Plt Count 332 (130-400) K/uL MPV 8.8 (7.2-11.7) fL Neut % (Auto) 66.4 (50.0-75.0) % Lymph % (Auto) 16.5 L (20.0-40.0) % [place] % (Auto) 10.6 H (0.0-10.0) % Eos % (Auto) 5.2 H (0.0-4.0) % Baso % (Auto) 1.3 (0.0-2.0) % Neut # (Auto) 5.3 (1.8-7.0) K/uL Lymph # (Auto) 1.3 (1.0-4.3) K/uL [place] # (Auto) 0.9 H (0.0-0.8) K/uL Eos # (Auto) 0.4 (0.0-0.7) K/uL Baso # (Auto) 0.1 (0.0-0.2) K/uL Sodium 137 (132-148) mmol/L Potassium 3.4 L (3.6-5.2) mmol/L Chloride 101 (98-107) mmol/L Carbon Dioxide 29 (22-30) mmol/L Anion Gap 11 (10-20) BUN 18 H (7-17) mg/dL Creatinine 0.9 (0.7-1.2) mg/dL Est GFR ( Amer) > 60 Est GFR (Non-Af Amer) > 60 POC Glucose (mg/dL) 214 H (65-110) mg/dL Random Glucose 144 H (65-105) mg/dL Calcium 8.2 L (8.6-10.4) mg/dl Phosphorus 3.0 (2.5-4.5) mg/dL Magnesium 1.8 (1.6-2.3) mg/dL Total Bilirubin 0.5 (0.2-1.3) mg/dL AST 22 (14-36) U/L ALT < 6 L (9-52) U/L Alkaline Phosphatase 90 (38-126) U/L Total Protein 6.1 L (6.3-8.3) g/dL Albumin 2.6 L (3.5-5.0) g/dL Globulin 3.5 (2.2-3.9) gm/dL Albumin/Globulin Ratio 0.8 L (1.0-2.1) 10/31/17 10/31/17 10/30/17 Range/Units 04:50 00:01 17:45 WBC (4.8-10.8) K/uL RBC (3.80-5.20) Mil/uL Hgb (11.0-16.0) g/dL Hct (34.0-47.0) % MCV (81.0-99.0) fL MCH (27.0-31.0) pg MCHC (33.0-37.0) g/dL RDW (11.5-14.5) % Plt Count (130-400) K/uL MPV (7.2-11.7) fL Neut % (Auto) (50.0-75.0) % Lymph % (Auto) (20.0-40.0) % [place] % (Auto) (0.0-10.0) % Eos % (Auto) (0.0-4.0) % Baso % (Auto) (0.0-2.0) % Neut # (Auto) (1.8-7.0) K/uL Lymph # (Auto) (1.0-4.3) K/uL [place] # (Auto) (0.0-0.8) K/uL Eos # (Auto) (0.0-0.7) K/uL Baso # (Auto) (0.0-0.2) K/uL Sodium (132-148) mmol/L Potassium (3.6-5.2) mmol/L Chloride (98-107) mmol/L Carbon Dioxide (22-30) mmol/L Anion Gap (10-20) BUN (7-17) mg/dL Creatinine (0.7-1.2) mg/dL Est GFR ( Amer) Est GFR (Non-Af Amer) POC Glucose (mg/dL) 148 H 288 H 312 H (65-110) mg/dL Random Glucose (65-105) mg/dL Calcium (8.6-10.4) mg/dl Phosphorus (2.5-4.5) mg/dL Magnesium (1.6-2.3) mg/dL Total Bilirubin (0.2-1.3) mg/dL AST (14-36) U/L ALT (9-52) U/L Alkaline Phosphatase (38-126) U/L Total Protein (6.3-8.3) g/dL Albumin (3.5-5.0) g/dL Globulin (2.2-3.9) gm/dL Albumin/Globulin Ratio (1.0-2.1) Laboratory Results - last 24 hr 10/30/17 10/31/17 10/31/17 17:45 00:01 04:50 WBC RBC Hgb Hct MCV MCH MCHC RDW Plt Count MPV Neut % (Auto) Lymph % (Auto) [place] % (Auto) Eos % (Auto) Baso % (Auto) Neut # (Auto) Lymph # (Auto) [place] # (Auto) Eos # (Auto) Baso # (Auto) Sodium Potassium Chloride Carbon Dioxide Anion Gap BUN Creatinine Est GFR ( Amer) Est GFR (Non-Af Amer) POC Glucose (mg/dL) 312 H 288 H 148 H Random Glucose Calcium Phosphorus Magnesium Total Bilirubin AST ALT Alkaline Phosphatase Total Protein Albumin Globulin Albumin/Globulin Ratio 10/31/17 10/31/17 10/31/17 06:12 06:14 11:32 WBC 8.1 RBC 3.42 L Hgb 9.9 L Hct 29.5 L MCV 86.1 MCH 29.0 MCHC 33.7 RDW 15.8 H Plt Count 332 MPV 8.8 Neut % (Auto) 66.4 Lymph % (Auto) 16.5 L [place] % (Auto) 10.6 H Eos % (Auto) 5.2 H Baso % (Auto) 1.3 Neut # (Auto) 5.3 Lymph # (Auto) 1.3 [place] # (Auto) 0.9 H Eos # (Auto) 0.4 Baso # (Auto) 0.1 Sodium 137 Potassium 3.4 L Chloride 101 Carbon Dioxide 29 Anion Gap 11 BUN 18 H Creatinine 0.9 Est GFR ( Amer) > 60 Est GFR (Non-Af Amer) > 60 POC Glucose (mg/dL) 214 H Random Glucose 144 H Calcium 8.2 L Phosphorus 3.0 Magnesium 1.8 Total Bilirubin 0.5 AST 22 ALT < 6 L Alkaline Phosphatase 90 Total Protein 6.1 L Albumin 2.6 L Globulin 3.5 Albumin/Globulin Ratio 0.8 L Critical Care Progress Note - Nutrition Nutrition: Nutrition Category Date Time Status Soft [Dysphagia/Modified Consistency Diet] [DIET] Diets 10/30/17 Dinner Active Attending/Attestation - Attestation I have personally seen and examined this patient.: Yes I have fully participated in the care of the patient.: Yes I have reviewed all pertinent clinical information: Yes Notes (Text): 10/31/17 16:04 patient seen and examined in the intensive care unit. Case discussed with staff in the morning around no active bleeding noted Continue present treatment Transfer to title assistant H&H
[2017-10-31] MEDS ORDERED: (Novolin R) Insulin Human Regular 100 units/ml vial ONE (13:46)
[2017-10-31] MEDS: Ferric Sodium Gluconat Complex 62.5 mg/5 ml Vial IVPB SCH (13:52)
--- NOTE | 2017-10-31 14:08 | CP.PCM.PN ---
Subjective - Date & Time of Evaluation Date of Evaluation: 10/31/17 Time of Evaluation: 10:00 - Subjective Subjective: Podiatry Progress Note- Dr. 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 Pt seen resting in bed at time of visit, appears to be in NAD, and more alert. Reports well controlled pain to the L big toe. Denies f/v/c/sob/or cp. Reports same nausea, abdominal pain s/p ex-lap procedure. No other pedal complaints. Objective - Vital Signs/Intake and Output Vital Signs (last 24 hours): Temp Pulse Resp BP Pulse Ox 98.5 F 91 H 20 140/57 L 95 10/31/17 04:00 10/31/17 06:00 10/31/17 06:00 10/31/17 10:38 10/31/17 06:00 Intake and Output: 10/31/17 10/31/17 06:59 18:59 Intake Total 780 Output Total 700 Balance 80 - Medications Medications: Current Medications Al Hydrox/Mg Hydrox/Simethicone (Maalox Plus 30 Ml) 30 ml PO Q6H PRN PRN Reason: Indigestion / Heartburn Last Admin: 10/30/17 17:32 Dose: 30 ml Amlodipine Besylate (Norvasc) 10 mg PO DAILY [facility] Last Admin: 10/20/17 09:57 Dose: Not Given Enalaprilat (Vasotec) 1.25 mg IV Q6 [facility] Last Admin: 10/31/17 04:59 Dose: 1.25 mg Enoxaparin Sodium (Lovenox) 60 mg SC Q12 [facility] Last Admin: 10/31/17 10:38 Dose: 60 mg Ferric Sodium Gluconate Complex (Ferrlecit) 125 mg IVPB DAILY [facility] Stop: 11/06/17 10:01 Last Admin: 10/31/17 13:52 Dose: 125 mg Furosemide (Lasix) 20 mg IVP DAILY [facility] Last Admin: 10/31/17 10:38 Dose: 20 mg Hydralazine HCl (Apresoline) 10 mg IVP Q6H PRN PRN Reason: Hypertension Last Admin: 10/30/17 17:37 Dose: 10 mg Folic Acid 1 mg/ Sodium (Chloride) 100.2 mls @ 60 mls/hr IV DAILY [facility] Last Admin: 10/31/17 10:39 Dose: 60 mls/hr Insulin Human Regular 10 unit/ (Amino Acids) 1,000.1 mls @ 60 mls/hr IV .[id number] [facility] Stop: 10/31/17 17:59 Insulin Human Regular 10 unit/Multivitamins/Vitamin C 10 ml / Amino Acids 1, 010.1 mls @ 60 mls/hr IV .[id number] [facility] Stop: 11/01/17 10:00 Insulin Human Regular 10 unit/ (Amino Acids) 1,000.1 mls @ 60 mls/hr IV .[id number] [facility] Stop: 11/01/17 17:59 Vancomycin/Sodium Chloride (Vancomycin 1 Gm/Ns 200 Ml) 1 gm in 200 mls @ 133.333 mls/hr IVPB Q24H [facility] PRN Reason: Protocol Stop: 11/05/17 18:01 Insulin Aspart (Novolog) 0 unit SC Q6 [facility] PRN Reason: Protocol Last Admin: 10/31/17 13:50 Dose: 4 unit Metoprolol Tartrate (Lopressor) 5 mg IVP Q6H [facility] Last Admin: 10/31/17 10:38 Dose: 5 mg Morphine Sulfate (Morphine) 2 mg IVP Q4 PRN PRN Reason: Pain, moderate (4-7) Last Admin: 10/31/17 11:41 Dose: 2 mg Mupirocin (Bactroban 2% Nasal) 0.5 gm BROOK BID [facility] Last Admin: 10/30/17 17:39 Dose: 0.5 gm Nitroglycerin (Nitro-Bid 2% Oint) 1 ea TOP Q6 [facility] Last Admin: 10/31/17 13:51 Dose: 1 ea Ondansetron HCl (Zofran Inj) 4 mg IVP Q6H PRN PRN Reason: Nausea/Vomiting Last Admin: 10/30/17 08:51 Dose: 4 mg Pantoprazole Sodium (Protonix Inj) 40 mg IVP Q12H [facility] Last Admin: 10/31/17 05:01 Dose: 40 mg Phenytoin (Dilantin) 100 mg IVP Q8H [facility] Last Admin: 10/31/17 13:52 Dose: 100 mg - Labs Labs: 10/31/17 06:12 10/31/17 06:14 PT 11.1 SECONDS (9.7-12.2) 10/29/17 06:10 INR 1.0 10/29/17 06:10 APTT 29 SECONDS (21-34) 10/29/17 06:10 - Constitutional Appears: Well, Non-toxic, No Acute Distress - Extremities Exam Additional comments: LLE focused: Dressing to left foot clean, dry, and intact. Vasc: DP and PT pulses are non-palpable, skin temp runs cool to cool (proximal to distal) lower extremities cool to cool Ortho: Mild pain with palpation to the left hallux and surrounding periwound, MM is 4/5 in all four compartments consistent with age Neuro: gross sensation intact bilaterally, protective sensation diminished Derm: Dry gangrene noted to the distal left hallux to the level of the IPJ with nail plate absent from nail bed, wound base is 100% necrotic base, with distal mummification with demarcating process noted. No active drainage nor purulent discharge noted or expressed, no malodor, no appreciable erythema or streaking, no probe to bone, no tunneling, no undermining. 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 Discussed with attending Dr. Bhat, who endorsed the following plan. Chart, labs, and vitals reviewed, hypokalemic, afebrile, no leukocytosis CT angio: -Right- short segment moderate stenosis prox SFA w/ long segment severe stenosis of the mid/distal SFA stent. Mild tandem stenosis of right popliteal. Markedly limited evaluation of below knee arteries due to heavy arterial wall calcification -Left- short segment moderate stenosis of prox SFA. Patent indwelling mid/ distal SFA stent. Mild tandem stenoses of the superficial femoral and popliteal artery. Markedly limited eval of anterior tibial and peroneal arteries due to heavy arterial wall calcification -7 days s/p small bowel resection and anastamosis (DOS 10/24/17). - Discussed with Vascular specialist Dr. Cota, no vascular intervention planned at this time. -Anticoagulation therapy modified to isolated Lovenox 60mg to stop chronic slow GI blood loss while on anticoagulation -Continue conservative care for toe at this time, betadine + DSD applied -Continue renewed IV abx per ID -Planning for future podiatry surgical intervention for left hallux amputation. -Medical clearance recommended once pt transferred to telemetry., Podiatry will continue to follow while inhouse.
[2017-10-31] MEDS: Vancomycin 1 gm/NS 200 ml 1 GM/200 ML BAG IVPB SCH (18:21)
--- NOTE | 2017-10-31 19:30 | CP.PCM.PN ---
Subjective - Date & Time of Evaluation Date of Evaluation: 10/31/17 Time of Evaluation: 12:00 - Subjective Subjective: Feeling better today Objective - Vital Signs/Intake and Output Vital Signs (last 24 hours): Temp Pulse Resp BP Pulse Ox 98.6 F 91 H 14 123/57 L 99 10/31/17 16:00 10/31/17 16:31 10/31/17 16:31 10/31/17 16:31 10/31/17 11:31 Intake and Output: 10/31/17 11/01/17 18:59 06:59 Intake Total 200 Output Total 350 Balance -150 - Medications Medications: Current Medications Al Hydrox/Mg Hydrox/Simethicone (Maalox Plus 30 Ml) 30 ml PO Q6H PRN PRN Reason: Indigestion / Heartburn Last Admin: 10/30/17 17:32 Dose: 30 ml Amlodipine Besylate (Norvasc) 10 mg PO DAILY [facility] Last Admin: 10/20/17 09:57 Dose: Not Given Enalaprilat (Vasotec) 1.25 mg IV Q6 [facility] Last Admin: 10/31/17 18:42 Dose: Not Given Enoxaparin Sodium (Lovenox) 60 mg SC Q12 [facility] Last Admin: 10/31/17 10:38 Dose: 60 mg Ferric Sodium Gluconate Complex (Ferrlecit) 125 mg IVPB DAILY [facility] Stop: 11/06/17 10:01 Last Admin: 10/31/17 13:52 Dose: 125 mg Furosemide (Lasix) 20 mg IVP DAILY [facility] Last Admin: 10/31/17 10:38 Dose: 20 mg Hydralazine HCl (Apresoline) 10 mg IVP Q6H PRN PRN Reason: Hypertension Last Admin: 10/30/17 17:37 Dose: 10 mg Folic Acid 1 mg/ Sodium (Chloride) 100.2 mls @ 60 mls/hr IV DAILY [facility] Last Admin: 10/31/17 10:39 Dose: 60 mls/hr Insulin Human Regular 10 unit/Multivitamins/Vitamin C 10 ml / Amino Acids 1, 010.1 mls @ 60 mls/hr IV .[id number] [facility] Stop: 11/01/17 10:00 Last Admin: 10/31/17 18:33 Dose: 60 mls/hr Insulin Human Regular 10 unit/ (Amino Acids) 1,000.1 mls @ 60 mls/hr IV .[id number] [facility] Stop: 11/01/17 17:59 Vancomycin/Sodium Chloride (Vancomycin 1 Gm/Ns 200 Ml) 1 gm in 200 mls @ 133.333 mls/hr IVPB Q24H [facility] PRN Reason: Protocol Stop: 11/05/17 18:01 Last Admin: 10/31/17 18:21 Dose: 133.333 mls/hr Insulin Aspart (Novolog) 0 unit SC Q6 [facility] PRN Reason: Protocol Last Admin: 10/31/17 18:13 Dose: 2 unit Metoprolol Tartrate (Lopressor) 5 mg IVP Q6H [facility] Last Admin: 10/31/17 16:48 Dose: 5 mg Morphine Sulfate (Morphine) 2 mg IVP Q4 PRN PRN Reason: Pain, moderate (4-7) Last Admin: 10/31/17 18:14 Dose: 2 mg Mupirocin (Bactroban 2% Nasal) 0.5 gm BROOK BID [facility] Last Admin: 10/31/17 18:19 Dose: 0.5 gm Nitroglycerin (Nitro-Bid 2% Oint) 1 ea TOP Q6 [facility] Last Admin: 10/31/17 18:15 Dose: 1 ea Ondansetron HCl (Zofran Inj) 4 mg IVP Q6H PRN PRN Reason: Nausea/Vomiting Last Admin: 10/30/17 08:51 Dose: 4 mg Pantoprazole Sodium (Protonix Inj) 40 mg IVP Q12H [facility] Last Admin: 10/31/17 18:19 Dose: 40 mg Phenytoin (Dilantin) 100 mg IVP Q8H [facility] Last Admin: 10/31/17 13:52 Dose: 100 mg Warfarin Sodium (Coumadin) 7.5 mg PO 1800 [facility] Stop: 11/01/17 18:01 - Labs Labs: 10/31/17 06:12 10/31/17 06:14 PT 11.1 SECONDS (9.7-12.2) 10/29/17 06:10 INR 1.0 10/29/17 06:10 APTT 29 SECONDS (21-34) 10/29/17 06:10 - Head Exam Head Exam: ATRAUMATIC - Eye Exam Eye Exam: Normal appearance - ENT Exam ENT Exam: Mucous Membranes Dry - Respiratory Exam Respiratory Exam: NORMAL BREATHING PATTERN - Cardiovascular Exam Cardiovascular Exam: +S1, +S2 - GI/Abdominal Exam GI & Abdominal Exam: Normal Bowel Sounds Assessment and Plan (1) Anemia Assessment & Plan: multifactorial; hypoproliferative erythroid response likely chronic iron deficiency from chronic slow GI blood loss while on anticoagulation exacerbated by acute faster GI bleeding 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
--- NOTE | 2017-10-31 23:42 | CP.PCM.PN ---
Subjective - Date & Time of Evaluation Date of Evaluation: 10/31/17 Time of Evaluation: 19:00 - Subjective Subjective: Pt seen and examined, afebrile, no sob, is on levonox for metallic valve,more alert, on PPN,S/P RESECTION OF SMALL INTESTINE switch to COUMADIN WHEN APPROPRIATE Objective - Vital Signs/Intake and Output Vital Signs (last 24 hours): Temp Pulse Resp BP Pulse Ox 99 F 89 11 L 125/54 L 99 10/31/17 20:00 10/31/17 20:00 10/31/17 20:00 10/31/17 18:41 10/31/17 11:31 Intake and Output: 10/31/17 11/01/17 18:59 06:59 Intake Total 200 Output Total 350 Balance -150 - Medications Medications: Current Medications Al Hydrox/Mg Hydrox/Simethicone (Maalox Plus 30 Ml) 30 ml PO Q6H PRN PRN Reason: Indigestion / Heartburn Last Admin: 10/30/17 17:32 Dose: 30 ml Amlodipine Besylate (Norvasc) 10 mg PO DAILY [facility] Last Admin: 10/20/17 09:57 Dose: Not Given Enalaprilat (Vasotec) 1.25 mg IV Q6 [facility] Last Admin: 10/31/17 18:42 Dose: Not Given Enoxaparin Sodium (Lovenox) 60 mg SC Q12 [facility] Last Admin: 10/31/17 21:01 Dose: 60 mg Ferric Sodium Gluconate Complex (Ferrlecit) 125 mg IVPB DAILY [facility] Stop: 11/06/17 10:01 Last Admin: 10/31/17 13:52 Dose: 125 mg Furosemide (Lasix) 20 mg IVP DAILY [facility] Last Admin: 10/31/17 10:38 Dose: 20 mg Hydralazine HCl (Apresoline) 10 mg IVP Q6H PRN PRN Reason: Hypertension Last Admin: 10/30/17 17:37 Dose: 10 mg Folic Acid 1 mg/ Sodium (Chloride) 100.2 mls @ 60 mls/hr IV DAILY [facility] Last Admin: 10/31/17 10:39 Dose: 60 mls/hr Insulin Human Regular 10 unit/Multivitamins/Vitamin C 10 ml / Amino Acids 1, 010.1 mls @ 60 mls/hr IV .[id number] [facility] Stop: 11/01/17 10:00 Last Admin: 10/31/17 18:33 Dose: 60 mls/hr Insulin Human Regular 10 unit/ (Amino Acids) 1,000.1 mls @ 60 mls/hr IV .[id number] [facility] Stop: 11/01/17 17:59 Vancomycin/Sodium Chloride (Vancomycin 1 Gm/Ns 200 Ml) 1 gm in 200 mls @ 133.333 mls/hr IVPB Q24H [facility] PRN Reason: Protocol Stop: 11/05/17 18:01 Last Admin: 10/31/17 18:21 Dose: 133.333 mls/hr Insulin Aspart (Novolog) 0 unit SC Q6 [facility] PRN Reason: Protocol Last Admin: 10/31/17 18:13 Dose: 2 unit Metoprolol Tartrate (Lopressor) 5 mg IVP Q6H [facility] Last Admin: 10/31/17 21:00 Dose: 5 mg Morphine Sulfate (Morphine) 2 mg IVP Q4 PRN PRN Reason: Pain, moderate (4-7) Last Admin: 10/31/17 18:14 Dose: 2 mg Mupirocin (Bactroban 2% Nasal) 0.5 gm BROOK BID [facility] Last Admin: 10/31/17 18:19 Dose: 0.5 gm Nitroglycerin (Nitro-Bid 2% Oint) 1 ea TOP Q6 [facility] Last Admin: 10/31/17 18:15 Dose: 1 ea Ondansetron HCl (Zofran Inj) 4 mg IVP Q6H PRN PRN Reason: Nausea/Vomiting Last Admin: 10/30/17 08:51 Dose: 4 mg Pantoprazole Sodium (Protonix Inj) 40 mg IVP Q12H [facility] Last Admin: 10/31/17 18:19 Dose: 40 mg Phenytoin (Dilantin) 100 mg IVP Q8H [facility] Last Admin: 10/31/17 21:00 Dose: 100 mg Warfarin Sodium (Coumadin) 7.5 mg PO 1800 [facility] Stop: 11/01/17 18:01 - Labs Labs: 10/31/17 06:12 10/31/17 06:14 PT 11.1 SECONDS (9.7-12.2) 10/29/17 06:10 INR 1.0 10/29/17 06:10 APTT 29 SECONDS (21-34) 10/29/17 06:10 - Constitutional Appears: No Acute Distress - Head Exam Head Exam: ATRAUMATIC, NORMAL INSPECTION, NORMOCEPHALIC - Eye Exam Eye Exam: EOMI, Normal appearance, PERRL Pupil Exam: NORMAL ACCOMODATION, PERRL - ENT Exam ENT Exam: Mucous Membranes Moist, Normal Exam - Neck Exam Neck Exam: Full ROM, Normal Inspection. absent: Lymphadenopathy - Respiratory Exam Respiratory Exam: Clear to Ausculation Bilateral, NORMAL BREATHING PATTERN - Cardiovascular Exam Cardiovascular Exam: REGULAR RHYTHM, +S1, +S2. absent: Murmur - GI/Abdominal Exam GI & Abdominal Exam: Soft, Normal Bowel Sounds. 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
--- NOTE | 2017-11-01 00:06 | PN ---
DATE: SUBJECTIVE: The patient denies any melena. Abdominal pain has improved. She is tolerating soft diet. PHYSICAL EXAMINATION: VITAL SIGNS: Blood pressure 123/57, heart rate 91, temperature 98.6, respirations 14. HEENT: Pale conjunctivae. CHEST: Clear. HEART: S1 and S2 regular. Grade 2/6 ejection systolic murmur over the left sternal border. ABDOMEN: Positive bowel sounds. EXTREMITIES: 1+ pitting edema. LABORATORY DATA: Hemoglobin and hematocrit 9.9 and 29.5. White count and platelet count are within normal limits. SMA-7 is 137, potassium 3.4, chloride 101, CO2 of 29, glucose 144, BUN 18, creatinine 0.9. ASSESSMENT AND PLAN: 1. Status post distal small bowel resection for persistent gastrointestinal bleeding. 2. Status post mitral and aortic valve replacement. 3. Hypokalemia. 4. Status post stenting on the left lower extremity few weeks ago. RECOMMENDATIONS: The patient did receive IV potassium replacement today 20 mEq. Continue current Lopressor, subcutaneous NovoLog mg twice a day, Dilantin 100 mg intravenously every 8 hours, hydralazine 10 mg intravenously every 6 hours p.r.n. I will administer Coumadin 7.5 mg orally today. Kraig Sheldon MD
[2017-11-01] MEDS: Enalaprilat 2.5 MG/2 ML IV SCH ×3 (00:11→12:24)
[2017-11-01] MEDS: (Novolog) Insulin Aspart, Recombinant 100 u/ml 10 ml vial SC SCH ×5 (00:13→23:44)
[2017-11-01] MEDS: Nitroglycerin 2% Ointment Foilpak UD TOP SCH ×5 (00:21→23:51)
[2017-11-01] MEDS: Metoprolol 1 mg/ml Inj IVP SCH ×2 (04:07→10:20)
[2017-11-01] MEDS: Phenytoin 100 mg/2 ml Inj IVP SCH ×3 (04:07→21:05)
[2017-11-01] MEDS: Morphine 4 MG/ML VIAL IVP PRN ×3 (04:15→22:22)
[2017-11-01 06:19] LABS: INR 1.1; PROTHROMBIN TIME 12.3 SECONDS (9.7-12.2)
[2017-11-01] MEDS: Ferric Sodium Gluconat Complex 62.5 mg/5 ml Vial IVPB SCH (09:42)
[2017-11-01] MEDS: Mupirocin 2% Ointment (NASAL) NAS SCH ×2 (09:51→19:46)
[2017-11-01] MEDS: Enoxaparin 60 mg Syringe SC SCH ×2 (09:53→22:17)
[2017-11-01] MEDS ORDERED: PPN IV SCH (10:00)
[2017-11-01] MEDS ORDERED: PPN#12 IV SCH (10:51)
[2017-11-01 14:18] LABS: BASO # 0.1 K/uL (0.0-0.2); EOS # 0.3 K/uL (0.0-0.7); EOS % 4.5 % (0.0-4.0); HEMOGLOBIN 10.2 g/dL (11.0-16.0); LYMPH # 1.2 K/uL (1.0-4.3); LYMPH % 15.4 % (20.0-40.0); MEAN CELL VOLUME 86.8 fL (81.0-99.0); MEAN CORPUSCULAR HEMOGLOBIN 29.1 pg (27.0-31.0); MEAN CORPUSCULAR HGB CONC 33.5 g/dL (33.0-37.0); MEAN PLATELET VOLUME 8.4 fL (7.2-11.7); MONO # 0.9 K/uL (0.0-0.8); MONO % 11.2 % (0.0-10.0); NEUT # 5.2 K/uL (1.8-7.0); NEUT % 67.9 % (50.0-75.0); RBC 3.52 Mil/uL (3.80-5.20); RED CELL DISTRIBUTION WIDTH 15.7 % (11.5-14.5); WHITE BLOOD COUNT 7.6 K/uL (4.8-10.8)
[2017-11-01 14:30] LABS: BLOOD UREA NITROGEN 16 mg/dL (7-17); CALCIUM 8.4 mg/dl (8.6-10.4); GFR AFRICAN-AMERICAN > 60; GFR NON-AFRICAN AMERICAN 57
[2017-11-01] MEDS ORDERED: PPN#11 IV ONE (18:00)
[2017-11-01] MEDS: Vancomycin 1 gm/NS 200 ml 1 GM/200 ML BAG IVPB SCH (18:09)
--- NOTE | 2017-11-01 20:07 | PN ---
DATE: 11/01/2017 SUBJECTIVE: The patient denies any chest pain or abdominal pain. No reported melena. PHYSICAL EXAMINATION: VITAL SIGNS: Blood pressure 150/60, heart rate 88, temperature 99.1, respirations 21. HEENT: Normocephalic. CHEST: Clear. HEART: S1 and S2, regular. Grade 2/6 ejection systolic murmur over the left sternal border. ABDOMEN: Soft. EXTREMITIES: 1+ pitting edema. LABORATORY DATA: Today's hemoglobin and hematocrit 10.2 and 30.6, white count and platelet count are within normal limit. Today's INR is 1.1. Today's potassium is 3.4, glucose 119, and calcium is 8.4. Today's SMA-7 is within normal limit. ASSESSMENT: 1. Status post mitral and aortic valve replacement. 2. Lower GI bleeding, status post distal small bowel resection. 3. Peripheral vascular disease, status post recent stenting to the left lower extremity. 4. Hypokalemia. RECOMMENDATIONS: Continue IV hydralazine 10 mg every 6 hours p.r.n. The patient will receive Coumadin 7.5 mg tonight. We will follow up on PT/INR in a.m. The patient will start taking oral Cozaar mg orally today. Continue subcutaneous Lovenox for now at 60 mg twice a day. Continue IV Protonix and Toprol-XL at 25 mg daily. Continue IV vancomycin at 1 gm daily. Kraig Sheldon MD
--- NOTE | 2017-11-01 22:38 | CP.PCM.PN ---
Subjective - Date & Time of Evaluation Date of Evaluation: 11/01/17 Time of Evaluation: 19:40 - Subjective Subjective: Pt seen and examined at bedside, PT IS LESS SOB, POST OP S/P RESECTION , H AND H IS STABLE Objective - Vital Signs/Intake and Output Vital Signs (last 24 hours): Temp Pulse Resp BP Pulse Ox 98.7 F 85 20 131/66 99 11/01/17 22:21 11/01/17 22:21 11/01/17 22:21 11/01/17 22:21 11/01/17 22:21 - Medications Medications: Current Medications Al Hydrox/Mg Hydrox/Simethicone (Maalox Plus 30 Ml) 30 ml PO Q6H PRN PRN Reason: Indigestion / Heartburn Last Admin: 10/30/17 17:32 Dose: 30 ml Amlodipine Besylate (Norvasc) 10 mg PO DAILY [facility] Last Admin: 10/20/17 09:57 Dose: Not Given Enoxaparin Sodium (Lovenox) 60 mg SC Q12 [facility] Last Admin: 11/01/17 22:17 Dose: 60 mg Ferric Sodium Gluconate Complex (Ferrlecit) 125 mg IVPB DAILY [facility] Stop: 11/06/17 10:01 Last Admin: 11/01/17 09:42 Dose: 125 mg Furosemide (Lasix) 20 mg IVP DAILY [facility] Last Admin: 11/01/17 11:53 Dose: 20 mg Hydralazine HCl (Apresoline) 10 mg IVP Q6H PRN PRN Reason: Hypertension Last Admin: 10/30/17 17:37 Dose: 10 mg Folic Acid 1 mg/ Sodium (Chloride) 100.2 mls @ 60 mls/hr IV DAILY [facility] Last Admin: 11/01/17 09:49 Dose: 60 mls/hr Vancomycin/Sodium Chloride (Vancomycin 1 Gm/Ns 200 Ml) 1 gm in 200 mls @ 133.333 mls/hr IVPB Q24H [facility] PRN Reason: Protocol Stop: 11/05/17 18:01 Last Admin: 11/01/17 18:09 Dose: 133.333 mls/hr Multivitamins/Vitamin C 10 ml/Insulin Human Regular 10 unit / Amino Acids 1, 010.1 mls @ 60 mls/hr IV .[id number] [facility] Stop: 04/19/18 10:50 Last Admin: 11/01/17 18:07 Dose: 60 mls/hr Insulin Human Regular 10 unit/ (Amino Acids) 1,000.1 mls @ 60 mls/hr IV .[id number] [facility] Stop: 11/02/17 17:59 Insulin Aspart (Novolog) 0 unit SC Q6 [facility] PRN Reason: Protocol Last Admin: 11/01/17 18:08 Dose: 2 unit Losartan Potassium (Cozaar) 50 mg PO DAILY [facility] Metoprolol Succinate (Toprol Xl) 25 mg PO DAILY [facility] Morphine Sulfate (Morphine) 2 mg IVP Q4 PRN PRN Reason: Pain, moderate (4-7) Last Admin: 11/01/17 22:22 Dose: 2 mg Mupirocin (Bactroban 2% Nasal) 0.5 gm BROOK BID [facility] Last Admin: 11/01/17 19:46 Dose: 0.5 gm Nitroglycerin (Nitro-Bid 2% Oint) 1 ea TOP Q6 [facility] Last Admin: 11/01/17 18:09 Dose: 1 ea Ondansetron HCl (Zofran Inj) 4 mg IVP Q6H PRN PRN Reason: Nausea/Vomiting Last Admin: 10/30/17 08:51 Dose: 4 mg Pantoprazole Sodium (Protonix Inj) 40 mg IVP Q12H [facility] Last Admin: 11/01/17 18:08 Dose: 40 mg Phenytoin (Dilantin) 100 mg IVP Q8H [facility] Last Admin: 11/01/17 21:05 Dose: 100 mg - Labs Labs: 11/01/17 14:11 11/01/17 14:11 PT 12.3 SECONDS (9.7-12.2) H 11/01/17 06:04 INR 1.1 11/01/17 06:04 APTT 29 SECONDS (21-34) 10/29/17 06:10 - Constitutional Appears: No Acute Distress - Head Exam Head Exam: ATRAUMATIC, NORMAL INSPECTION, NORMOCEPHALIC - Eye Exam Eye Exam: EOMI, Normal appearance, PERRL Pupil Exam: NORMAL ACCOMODATION, PERRL - Respiratory Exam Respiratory Exam: Clear to Ausculation Bilateral, NORMAL BREATHING PATTERN - Cardiovascular Exam Cardiovascular Exam: REGULAR RHYTHM, +S1, +S2. absent: Murmur - GI/Abdominal Exam GI & Abdominal Exam: Soft, Normal Bowel Sounds. absent: Tenderness Assessment and Plan (1) GI bleed Status: Acute (2) Anemia Status: Acute (3) Toe gangrene Status: Acute (4) CAD (coronary artery disease) Status: Chronic
--- NOTE | 2017-11-01 23:35 | CP.PCM.PN ---
Subjective - Date & Time of Evaluation Date of Evaluation: 11/01/17 Time of Evaluation: 20:15 - Subjective Subjective: No complaints. Objective - Vital Signs/Intake and Output Vital Signs (last 24 hours): Temp Pulse Resp BP Pulse Ox 98.7 F 87 20 131/66 99 11/01/17 22:21 11/01/17 22:48 11/01/17 22:21 11/01/17 22:21 11/01/17 22:21 Intake and Output: 11/01/17 11/02/17 18:59 06:59 Intake Total 60 Balance 60 - Medications Medications: Current Medications Al Hydrox/Mg Hydrox/Simethicone (Maalox Plus 30 Ml) 30 ml PO Q6H PRN PRN Reason: Indigestion / Heartburn Last Admin: 10/30/17 17:32 Dose: 30 ml Amlodipine Besylate (Norvasc) 10 mg PO DAILY [facility] Last Admin: 10/20/17 09:57 Dose: Not Given Enoxaparin Sodium (Lovenox) 60 mg SC Q12 [facility] Last Admin: 11/01/17 22:17 Dose: 60 mg Ferric Sodium Gluconate Complex (Ferrlecit) 125 mg IVPB DAILY [facility] Stop: 11/06/17 10:01 Last Admin: 11/01/17 09:42 Dose: 125 mg Furosemide (Lasix) 20 mg IVP DAILY [facility] Last Admin: 11/01/17 11:53 Dose: 20 mg Hydralazine HCl (Apresoline) 10 mg IVP Q6H PRN PRN Reason: Hypertension Last Admin: 10/30/17 17:37 Dose: 10 mg Folic Acid 1 mg/ Sodium (Chloride) 100.2 mls @ 60 mls/hr IV DAILY [facility] Last Admin: 11/01/17 09:49 Dose: 60 mls/hr Vancomycin/Sodium Chloride (Vancomycin 1 Gm/Ns 200 Ml) 1 gm in 200 mls @ 133.333 mls/hr IVPB Q24H [facility] PRN Reason: Protocol Stop: 11/05/17 18:01 Last Admin: 11/01/17 18:09 Dose: 133.333 mls/hr Multivitamins/Vitamin C 10 ml/Insulin Human Regular 10 unit / Amino Acids 1, 010.1 mls @ 60 mls/hr IV .[id number] Stop: 11/02/17 10:50 Last Admin: 11/01/17 18:07 Dose: 60 mls/hr Insulin Human Regular 10 unit/ (Amino Acids) 1,000.1 mls @ 60 mls/hr IV .[id number] [facility] Stop: 11/02/17 17:59 Insulin Aspart (Novolog) 0 unit SC Q6 [facility] PRN Reason: Protocol Last Admin: 11/01/17 18:08 Dose: 2 unit Losartan Potassium (Cozaar) 50 mg PO DAILY [facility] Metoprolol Succinate (Toprol Xl) 25 mg PO DAILY [facility] Morphine Sulfate (Morphine) 2 mg IVP Q4 PRN PRN Reason: Pain, moderate (4-7) Last Admin: 11/01/17 22:22 Dose: 2 mg Mupirocin (Bactroban 2% Nasal) 0.5 gm BROOK BID [facility] Last Admin: 11/01/17 19:46 Dose: 0.5 gm Nitroglycerin (Nitro-Bid 2% Oint) 1 ea TOP Q6 [facility] Last Admin: 11/01/17 18:09 Dose: 1 ea Ondansetron HCl (Zofran Inj) 4 mg IVP Q6H PRN PRN Reason: Nausea/Vomiting Last Admin: 10/30/17 08:51 Dose: 4 mg Pantoprazole Sodium (Protonix Inj) 40 mg IVP Q12H [facility] Last Admin: 11/01/17 18:08 Dose: 40 mg Phenytoin (Dilantin) 100 mg IVP Q8H [facility] Last Admin: 11/01/17 21:05 Dose: 100 mg - Labs Labs: 11/01/17 14:11 11/01/17 14:11 PT 12.3 SECONDS (9.7-12.2) H 11/01/17 06:04 INR 1.1 11/01/17 06:04 APTT 29 SECONDS (21-34) 10/29/17 06:10 - Head Exam Head Exam: ATRAUMATIC - Eye Exam Eye Exam: Normal appearance - ENT Exam ENT Exam: Mucous Membranes Dry - Respiratory Exam Respiratory Exam: NORMAL BREATHING PATTERN - Cardiovascular Exam Cardiovascular Exam: +S1, +S2 - GI/Abdominal Exam GI & Abdominal Exam: Normal Bowel Sounds Assessment and Plan (1) Anemia Assessment & Plan: multifactorial; hypoproliferative erythroid response likely chronic iron deficiency from chronic slow GI blood loss while on anticoagulation exacerbated by acute faster GI bleeding 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
[2017-11-02] MEDS: Morphine 4 MG/ML VIAL IVP PRN ×3 (03:48→18:03)
[2017-11-02] MEDS: Phenytoin 100 mg/2 ml Inj IVP SCH ×3 (03:49→21:24)
[2017-11-02] MEDS: Nitroglycerin 2% Ointment Foilpak UD TOP SCH ×3 (05:50→17:51)
[2017-11-02] MEDS: (Novolog) Insulin Aspart, Recombinant 100 u/ml 10 ml vial SC SCH ×3 (05:51→18:20)
[2017-11-02] MEDS ORDERED: Metoprolol Succinate 25 mg XL Tab PO SCH (10:00)
[2017-11-02] MEDS: Ferric Sodium Gluconat Complex 62.5 mg/5 ml Vial IVPB SCH (10:15)
[2017-11-02] MEDS: Mupirocin 2% Ointment (NASAL) NAS SCH ×2 (10:15→17:51)
[2017-11-02] MEDS: Enoxaparin 60 mg Syringe SC SCH (10:16)
[2017-11-02] MEDS ORDERED: PPN#12 IV SCH (10:51)
[2017-11-02 14:07] LABS: BASO # 0.1 K/uL (0.0-0.2); BASO % 0.9 % (0.0-2.0); EOS # 0.3 K/uL (0.0-0.7); EOS % 4.7 % (0.0-4.0); HEMOGLOBIN 9.1 g/dL (11.0-16.0); MEAN CELL VOLUME 85.9 fL (81.0-99.0); MEAN CORPUSCULAR HEMOGLOBIN 29.2 pg (27.0-31.0); MEAN PLATELET VOLUME 8.3 fL (7.2-11.7); MONO # 0.8 K/uL (0.0-0.8); MONO % 12.4 % (0.0-10.0); NEUT # 4.5 K/uL (1.8-7.0); RBC 3.1 Mil/uL (3.80-5.20); RED CELL DISTRIBUTION WIDTH 15.5 % (11.5-14.5); WHITE BLOOD COUNT 6.8 K/uL (4.8-10.8)
[2017-11-02 14:09] LABS: INR 1.1; PROTHROMBIN TIME 12.5 SECONDS (9.7-12.2)
[2017-11-02 14:17] LABS: BLOOD UREA NITROGEN 15 mg/dL (7-17); CALCIUM 7.9 mg/dl (8.6-10.4); GFR AFRICAN-AMERICAN > 60; GFR NON-AFRICAN AMERICAN > 60
--- NOTE | 2017-11-02 14:32 | CP.PCM.PN ---
Subjective - Date & Time of Evaluation Date of Evaluation: 11/02/17 Time of Evaluation: 11:10 - Subjective Subjective: Podiatry Progress Note- Dr. 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 Pt seen resting in bed at time of visit, appears to be in NAD, and more alert. Reports well controlled pain to the L big toe. Denies f/v/c/sob/or cp. Reports no nausea, return of appetite, tolerance of solid food, and decreased abdominal pain. No new pedal complaints. Pt denies and acute overnight events. Objective - Vital Signs/Intake and Output Vital Signs (last 24 hours): Temp Pulse Resp BP Pulse Ox 98.2 F 87 20 123/69 97 11/02/17 07:05 11/02/17 13:27 11/02/17 07:05 11/02/17 13:27 11/02/17 07:05 Intake and Output: 11/02/17 11/02/17 06:59 18:59 Intake Total 60 Balance 60 - Medications Medications: Current Medications Al Hydrox/Mg Hydrox/Simethicone (Maalox Plus 30 Ml) 30 ml PO Q6H PRN PRN Reason: Indigestion / Heartburn Last Admin: 10/30/17 17:32 Dose: 30 ml Amlodipine Besylate (Norvasc) 10 mg PO DAILY [facility] Last Admin: 10/20/17 09:57 Dose: Not Given Enoxaparin Sodium (Lovenox) 90 mg SC Q12 [facility] Ferric Sodium Gluconate Complex (Ferrlecit) 125 mg IVPB DAILY [facility] Stop: 11/06/17 10:01 Last Admin: 11/02/17 10:15 Dose: 125 mg Hydralazine HCl (Apresoline) 10 mg IVP Q6H PRN PRN Reason: Hypertension Last Admin: 10/30/17 17:37 Dose: 10 mg Folic Acid 1 mg/ Sodium (Chloride) 100.2 mls @ 60 mls/hr IV DAILY [facility] Last Admin: 11/02/17 11:00 Dose: 60 mls/hr Vancomycin/Sodium Chloride (Vancomycin 1 Gm/Ns 200 Ml) 1 gm in 200 mls @ 133.333 mls/hr IVPB Q24H [facility] PRN Reason: Protocol Stop: 11/05/17 18:01 Last Admin: 11/01/17 18:09 Dose: 133.333 mls/hr Insulin Aspart (Novolog) 0 unit SC Q6 [facility] PRN Reason: Protocol Last Admin: 11/02/17 12:35 Dose: 4 unit Losartan Potassium (Cozaar) 50 mg PO DAILY [facility] Metoprolol Succinate (Toprol Xl) 25 mg PO DAILY [facility] Morphine Sulfate (Morphine) 2 mg IVP Q4 PRN PRN Reason: Pain, moderate (4-7) Last Admin: 11/02/17 10:15 Dose: 2 mg Mupirocin (Bactroban 2% Nasal) 0.5 gm BROOK BID [facility] Last Admin: 11/02/17 10:15 Dose: 0.5 gm Nitroglycerin (Nitro-Bid 2% Oint) 1 ea TOP Q6 [facility] Last Admin: 11/02/17 13:00 Dose: 1 ea Ondansetron HCl (Zofran Inj) 4 mg IVP Q6H PRN PRN Reason: Nausea/Vomiting Last Admin: 10/30/17 08:51 Dose: 4 mg Pantoprazole Sodium (Protonix Inj) 40 mg IVP Q12H [facility] Last Admin: 11/02/17 05:50 Dose: 40 mg Phenytoin (Dilantin) 100 mg IVP Q8H [facility] Last Admin: 11/02/17 13:26 Dose: 100 mg Warfarin Sodium (Coumadin) 7.5 mg PO 1800 [facility] Stop: 11/02/17 18:01 - Labs Labs: 11/02/17 14:00 11/02/17 14:00 PT 12.5 SECONDS (9.7-12.2) H 11/02/17 14:00 INR 1.1 11/02/17 14:00 APTT 29 SECONDS (21-34) 10/29/17 06:10 - Constitutional Appears: Well, Non-toxic, No Acute Distress - Extremities Exam Additional comments: LLE focused: Dressing to left foot clean, dry, and intact. Vasc: DP and PT pulses are non-palpable, skin temp runs cool to cool (proximal to distal) lower extremities cool to cool Ortho: Mild pain with palpation to the left hallux and surrounding periwound, MM is 4/5 in all four compartments consistent with age Neuro: gross sensation intact bilaterally, protective sensation diminished Derm: Dry gangrene noted to the distal left hallux to the level of the IPJ with nail plate absent from nail bed, wound base is 100% necrotic base, with distal mummification with demarcating process noted. No active drainage nor purulent discharge noted or expressed, no malodor, no appreciable erythema or streaking, no probe to bone, no tunneling, no undermining. 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 Discussed with attending Dr. Bhat, who endorsed the following plan. Chart, labs, and vitals reviewed; afebrile, no leukocytosis CT angio: -Right- short segment moderate stenosis prox SFA w/ long segment severe stenosis of the mid/distal SFA stent. Mild tandem stenosis of right popliteal. Markedly limited evaluation of below knee arteries due to heavy arterial wall calcification -Left- short segment moderate stenosis of prox SFA. Patent indwelling mid/ distal SFA stent. Mild tandem stenoses of the superficial femoral and popliteal artery. Markedly limited eval of anterior tibial and peroneal arteries due to heavy arterial wall calcification -Pt downgraded to telemetry from ICU. - Discussed with Vascular specialist Dr. Cota, no vascular intervention planned at this time. -Continue conservative care for toe at this time, betadine + DSD applied -Continue IV abx per ID -Podiatry surgical intervention for left hallux amputation Monday11/06/17. -Medical clearance requested. - Vascular clearance requested. Podiatry will continue to follow while inhouse.
[2017-11-02] MEDS: Enoxaparin 100 mg Syringe SC SCH ×2 (15:45→21:24)
--- NOTE | 2017-11-02 16:38 | PN ---
DATE: SUBJECTIVE: The patient has no reported rectal bleeding. She denies any chest pain. No shortness of breath at this time. PHYSICAL EXAMINATION: VITAL SIGNS: Blood pressure 123/69, heart rate 87, temperature 98.2, respirations 20. HEENT: Pale conjunctivae. CHEST: Basilar rhonchi. HEART: S1 and S2, regular. Grade 2/6 ejection systolic murmur over the left sternal border. ABDOMEN: Soft. EXTREMITIES: No edema. ASSESSMENT: 1. Lower gastrointestinal bleeding, status post distal small bowel resection. 2. Status post mitral and aortic valve replacement. 3. Mild hypokalemia. 4. Hypertension. 5. Peripheral vascular disease, status post recent left lower extremity stenting. RECOMMENDATIONS: Lovenox was increased to therapeutic regimen at 90 mg subcutaneously twice a day. We will order Coumadin 7.5 mg orally today. Obtain BNP, INR, and CBC in a.m. Kraig Sheldon MD
[2017-11-02 16:55] LABS: INR 1.1; PROTHROMBIN TIME 12.2 SECONDS (9.7-12.2)
--- NOTE | 2017-11-02 17:25 | CP.PCM.PCO ---
Physician Communication Note - Physician Communication Note Physician Communication Note: medically stable for or with average risk
[2017-11-02] MEDS: Vancomycin 1 gm/NS 200 ml 1 GM/200 ML BAG IVPB SCH (17:51)
--- NOTE | 2017-11-02 18:37 | CP.PCM.PN ---
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 s/p bypass for occlusive vascular disease cultures of toe grew MRSA Objective - Vital Signs/Intake and Output Vital Signs (last 24 hours): Temp Pulse Resp BP Pulse Ox 97.9 F 78 20 135/73 96 11/02/17 15:39 11/02/17 17:00 11/02/17 15:39 11/02/17 15:39 11/02/17 15:39 Intake and Output: 11/02/17 11/02/17 06:59 18:59 Intake Total 60 500 Balance 60 500 - Medications Medications: Current Medications Al Hydrox/Mg Hydrox/Simethicone (Maalox Plus 30 Ml) 30 ml PO Q6H PRN PRN Reason: Indigestion / Heartburn Last Admin: 10/30/17 17:32 Dose: 30 ml Amlodipine Besylate (Norvasc) 10 mg PO DAILY [facility] Last Admin: 10/20/17 09:57 Dose: Not Given Enoxaparin Sodium (Lovenox) 90 mg SC Q12 [facility] Last Admin: 11/02/17 15:45 Dose: Not Given Ferric Sodium Gluconate Complex (Ferrlecit) 125 mg IVPB DAILY [facility] Stop: 11/06/17 10:01 Last Admin: 11/02/17 10:15 Dose: 125 mg Hydralazine HCl (Apresoline) 10 mg IVP Q6H PRN PRN Reason: Hypertension Last Admin: 10/30/17 17:37 Dose: 10 mg Folic Acid 1 mg/ Sodium (Chloride) 100.2 mls @ 60 mls/hr IV DAILY [facility] Last Admin: 11/02/17 11:00 Dose: 60 mls/hr Vancomycin/Sodium Chloride (Vancomycin 1 Gm/Ns 200 Ml) 1 gm in 200 mls @ 133.333 mls/hr IVPB Q24H [facility] PRN Reason: Protocol Stop: 11/05/17 18:01 Last Admin: 11/02/17 17:51 Dose: 133.333 mls/hr Insulin Aspart (Novolog) 0 unit SC Q6 [facility] PRN Reason: Protocol Last Admin: 11/02/17 18:20 Dose: 2 unit Losartan Potassium (Cozaar) 50 mg PO DAILY [facility] Metoprolol Succinate (Toprol Xl) 25 mg PO DAILY [facility] Morphine Sulfate (Morphine) 2 mg IVP Q4 PRN PRN Reason: Pain, moderate (4-7) Last Admin: 11/02/17 18:03 Dose: 2 mg Mupirocin (Bactroban 2% Nasal) 0.5 gm BROOK BID [facility] Last Admin: 11/02/17 17:51 Dose: 0.5 gm Nitroglycerin (Nitro-Bid 2% Oint) 1 ea TOP Q6 [facility] Last Admin: 11/02/17 17:51 Dose: 1 ea Ondansetron HCl (Zofran Inj) 4 mg IVP Q6H PRN PRN Reason: Nausea/Vomiting Last Admin: 10/30/17 08:51 Dose: 4 mg Pantoprazole Sodium (Protonix Inj) 40 mg IVP Q12H [facility] Last Admin: 11/02/17 17:50 Dose: 40 mg Phenytoin (Dilantin) 100 mg IVP Q8H [facility] Last Admin: 11/02/17 13:26 Dose: 100 mg - Labs Labs: 11/02/17 14:00 11/02/17 14:00 PT 12.2 SECONDS (9.7-12.2) 11/02/17 16:41 INR 1.1 11/02/17 16:41 APTT 29 SECONDS (21-34) 10/29/17 06:10 - Constitutional Appears: Non-toxic, Chronically Ill - Head Exam Head Exam: NORMOCEPHALIC - Eye Exam Eye Exam: PERRL - ENT Exam ENT Exam: Mucous Membranes Dry - Neck Exam Neck Exam: absent: Lymphadenopathy - Respiratory Exam Respiratory Exam: Decreased Breath Sounds - Cardiovascular Exam Cardiovascular Exam: REGULAR RHYTHM - GI/Abdominal Exam GI & Abdominal Exam: Distended, Soft - Rectal Exam Rectal Exam: Deferred - Exam Exam: NORMAL INSPECTION - Extremities Exam Extremities Exam: Pedal Edema, Tenderness - Back Exam Back Exam: absent: CVA tenderness (L), CVA tenderness (R) - Neurological Exam Neurological Exam: Alert Assessment and Plan (1) Anemia Status: Acute (2) Toe gangrene Status: Acute (3) CAD (coronary artery disease) Status: Chronic (4) Dyslipidemia Status: Chronic (5) PVD (peripheral vascular disease) Status: Chronic (6) Uncontrolled diabetes mellitus Status: Chronic - Assessment and Plan (Free Text) Assessment: vanco levels ok cont wound care and IV antibiotics
[2017-11-02] MEDS ORDERED: Epoetin Alfa 20000 UNIT/ML Inj SC ONE (20:05)
--- NOTE | 2017-11-02 20:06 | CP.PCM.PN ---
Subjective - Date & Time of Evaluation Date of Evaluation: 11/02/17 Time of Evaluation: 19:00 - Subjective Subjective: Some abdominal pain, pain in foot. Objective - Vital Signs/Intake and Output Vital Signs (last 24 hours): Temp Pulse Resp BP Pulse Ox 97.9 F 78 20 135/73 96 11/02/17 15:39 11/02/17 17:00 11/02/17 15:39 11/02/17 15:39 11/02/17 15:39 Intake and Output: 11/02/17 11/03/17 18:59 06:59 Intake Total 500 Balance 500 - Medications Medications: Current Medications Al Hydrox/Mg Hydrox/Simethicone (Maalox Plus 30 Ml) 30 ml PO Q6H PRN PRN Reason: Indigestion / Heartburn Last Admin: 10/30/17 17:32 Dose: 30 ml Amlodipine Besylate (Norvasc) 10 mg PO DAILY [facility] Last Admin: 10/20/17 09:57 Dose: Not Given Enoxaparin Sodium (Lovenox) 90 mg SC Q12 [facility] Last Admin: 11/02/17 15:45 Dose: Not Given Epoetin Joaquin (Procrit) 20,000 unit SC ONCE [facility] Stop: 11/02/17 20:06 Ferric Sodium Gluconate Complex (Ferrlecit) 125 mg IVPB DAILY [facility] Stop: 11/06/17 10:01 Last Admin: 11/02/17 10:15 Dose: 125 mg Hydralazine HCl (Apresoline) 10 mg IVP Q6H PRN PRN Reason: Hypertension Last Admin: 10/30/17 17:37 Dose: 10 mg Folic Acid 1 mg/ Sodium (Chloride) 100.2 mls @ 60 mls/hr IV DAILY [facility] Last Admin: 11/02/17 11:00 Dose: 60 mls/hr Vancomycin/Sodium Chloride (Vancomycin 1 Gm/Ns 200 Ml) 1 gm in 200 mls @ 133.333 mls/hr IVPB Q24H [facility] PRN Reason: Protocol Stop: 11/05/17 18:01 Last Admin: 11/02/17 17:51 Dose: 133.333 mls/hr Insulin Aspart (Novolog) 0 unit SC Q6 [facility] PRN Reason: Protocol Last Admin: 11/02/17 18:20 Dose: 2 unit Losartan Potassium (Cozaar) 50 mg PO DAILY [facility] Metoprolol Succinate (Toprol Xl) 25 mg PO DAILY [facility] Morphine Sulfate (Morphine) 2 mg IVP Q4 PRN PRN Reason: Pain, moderate (4-7) Last Admin: 11/02/17 18:03 Dose: 2 mg Mupirocin (Bactroban 2% Nasal) 0.5 gm BROOK BID [facility] Last Admin: 11/02/17 17:51 Dose: 0.5 gm Nitroglycerin (Nitro-Bid 2% Oint) 1 ea TOP Q6 [facility] Last Admin: 11/02/17 17:51 Dose: 1 ea Ondansetron HCl (Zofran Inj) 4 mg IVP Q6H PRN PRN Reason: Nausea/Vomiting Last Admin: 10/30/17 08:51 Dose: 4 mg Pantoprazole Sodium (Protonix Inj) 40 mg IVP Q12H [facility] Last Admin: 11/02/17 17:50 Dose: 40 mg Phenytoin (Dilantin) 100 mg IVP Q8H [facility] Last Admin: 11/02/17 13:26 Dose: 100 mg - Labs Labs: 11/02/17 14:00 11/02/17 14:00 PT 12.2 SECONDS (9.7-12.2) 11/02/17 16:41 INR 1.1 11/02/17 16:41 APTT 29 SECONDS (21-34) 10/29/17 06:10 - Head Exam Head Exam: ATRAUMATIC - Eye Exam Eye Exam: Normal appearance - ENT Exam ENT Exam: Mucous Membranes Dry - Respiratory Exam Respiratory Exam: NORMAL BREATHING PATTERN - Cardiovascular Exam Cardiovascular Exam: +S1, +S2 - GI/Abdominal Exam GI & Abdominal Exam: Normal Bowel Sounds Assessment and Plan (1) Anemia Assessment & Plan: multifactorial; hypoproliferative erythroid response likely chronic iron deficiency from chronic slow GI blood loss while on anticoagulation exacerbated by acute faster GI bleeding 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
--- NOTE | 2017-11-02 23:26 | CP.PCM.PN ---
Subjective - Date & Time of Evaluation Date of Evaluation: 11/02/17 Time of Evaluation: 18:00 - Subjective Subjective: PT SEEN AND EVALUATED, PT IS ON LEVONIX, FOR OR Objective - Vital Signs/Intake and Output Vital Signs (last 24 hours): Temp Pulse Resp BP Pulse Ox 97.9 F 78 20 135/73 96 11/02/17 15:39 11/02/17 17:00 11/02/17 15:39 11/02/17 15:39 11/02/17 15:39 Intake and Output: 11/02/17 11/03/17 18:59 06:59 Intake Total 500 480 Balance 500 480 - Medications Medications: Current Medications Al Hydrox/Mg Hydrox/Simethicone (Maalox Plus 30 Ml) 30 ml PO Q6H PRN PRN Reason: Indigestion / Heartburn Last Admin: 10/30/17 17:32 Dose: 30 ml Amlodipine Besylate (Norvasc) 10 mg PO DAILY [facility] Last Admin: 10/20/17 09:57 Dose: Not Given Enoxaparin Sodium (Lovenox) 90 mg SC Q12 [facility] Last Admin: 11/02/17 21:24 Dose: 90 mg Ferric Sodium Gluconate Complex (Ferrlecit) 125 mg IVPB DAILY [facility] Stop: 11/06/17 10:01 Last Admin: 11/02/17 10:15 Dose: 125 mg Hydralazine HCl (Apresoline) 10 mg IVP Q6H PRN PRN Reason: Hypertension Last Admin: 10/30/17 17:37 Dose: 10 mg Folic Acid 1 mg/ Sodium (Chloride) 100.2 mls @ 60 mls/hr IV DAILY [facility] Last Admin: 11/02/17 11:00 Dose: 60 mls/hr Vancomycin/Sodium Chloride (Vancomycin 1 Gm/Ns 200 Ml) 1 gm in 200 mls @ 133.333 mls/hr IVPB Q24H [facility] PRN Reason: Protocol Stop: 11/05/17 18:01 Last Admin: 11/02/17 17:51 Dose: 133.333 mls/hr Insulin Aspart (Novolog) 0 unit SC Q6 [facility] PRN Reason: Protocol Last Admin: 11/02/17 18:20 Dose: 2 unit Losartan Potassium (Cozaar) 50 mg PO DAILY [facility] Metoprolol Succinate (Toprol Xl) 25 mg PO DAILY [facility] Morphine Sulfate (Morphine) 2 mg IVP Q4 PRN PRN Reason: Pain, moderate (4-7) Last Admin: 11/02/17 18:03 Dose: 2 mg Mupirocin (Bactroban 2% Nasal) 0.5 gm BROOK BID [facility] Last Admin: 11/02/17 17:51 Dose: 0.5 gm Nitroglycerin (Nitro-Bid 2% Oint) 1 ea TOP Q6 [facility] Last Admin: 11/02/17 17:51 Dose: 1 ea Ondansetron HCl (Zofran Inj) 4 mg IVP Q6H PRN PRN Reason: Nausea/Vomiting Last Admin: 10/30/17 08:51 Dose: 4 mg Pantoprazole Sodium (Protonix Inj) 40 mg IVP Q12H [facility] Last Admin: 11/02/17 17:50 Dose: 40 mg Phenytoin (Dilantin) 100 mg IVP Q8H [facility] Last Admin: 11/02/17 21:24 Dose: 100 mg - Labs Labs: 11/02/17 14:00 11/02/17 14:00 PT 12.2 SECONDS (9.7-12.2) 11/02/17 16:41 INR 1.1 11/02/17 16:41 APTT 29 SECONDS (21-34) 10/29/17 06:10 - Constitutional Appears: No Acute Distress - Head Exam Head Exam: ATRAUMATIC, NORMAL INSPECTION, NORMOCEPHALIC - Eye Exam Eye Exam: EOMI, Normal appearance, PERRL Pupil Exam: NORMAL ACCOMODATION, PERRL - Respiratory Exam Respiratory Exam: Clear to Ausculation Bilateral, NORMAL BREATHING PATTERN - Cardiovascular Exam Cardiovascular Exam: REGULAR RHYTHM, +S1, +S2. absent: Murmur - GI/Abdominal Exam GI & Abdominal Exam: Soft, Normal Bowel Sounds. absent: Tenderness Assessment and Plan (1) GI bleed Status: Acute (2) Anemia Status: Acute (3) Toe gangrene Status: Acute (4) CAD (coronary artery disease) Status: Chronic
[2017-11-03] MEDS: Nitroglycerin 2% Ointment Foilpak UD TOP SCH ×5 (00:02→23:47)
[2017-11-03] MEDS: (Novolog) Insulin Aspart, Recombinant 100 u/ml 10 ml vial SC SCH ×5 (00:24→23:49)
[2017-11-03] MEDS: Phenytoin 100 mg/2 ml Inj IVP SCH ×3 (05:42→21:41)
[2017-11-03 09:02] LABS: HEMOGLOBIN 8.6 g/dL (11.0-16.0); MEAN CELL VOLUME 86.7 fL (81.0-99.0); MEAN CORPUSCULAR HEMOGLOBIN 29.5 pg (27.0-31.0); MEAN PLATELET VOLUME 9.5 fL (7.2-11.7); RBC 2.93 Mil/uL (3.80-5.20); RED CELL DISTRIBUTION WIDTH 15.4 % (11.5-14.5)
[2017-11-03 09:04] LABS: INR 1.2; PROTHROMBIN TIME 13.6 SECONDS (9.7-12.2)
[2017-11-03 09:18] LABS: ALB/GLOB RATIO 0.7 (1.0-2.1); ALBUMIN 2.5 g/dL (3.5-5.0); ALT/SGPT 22 U/L (9-52); AST/SGOT 67 U/L (14-36); BLOOD UREA NITROGEN 11 mg/dL (7-17); CALCIUM 7.6 mg/dl (8.6-10.4); GFR AFRICAN-AMERICAN > 60; GFR NON-AFRICAN AMERICAN > 60
[2017-11-03] MEDS: Mupirocin 2% Ointment (NASAL) NAS SCH ×2 (09:20→18:03)
[2017-11-03] MEDS: Enoxaparin 100 mg Syringe SC SCH ×2 (09:21→21:41)
[2017-11-03] MEDS: Metoprolol Succinate 25 mg XL Tab PO SCH (09:23)
[2017-11-03] MEDS: Ferric Sodium Gluconat Complex 62.5 mg/5 ml Vial IVPB SCH (09:24)
--- NOTE | 2017-11-03 16:11 | CP.PCM.PN ---
Subjective - Date & Time of Evaluation Date of Evaluation: 11/03/17 Time of Evaluation: 10:05 - Subjective Subjective: Podiatry Progress Note- Dr. 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 Pt seen resting in bed at time of visit, appears to be in NAD, and more alert. Reports well controlled pain to the L big toe. Denies f/v/c/sob/or cp. Reports no nausea, return of appetite, tolerance of soft food diet, and decreased abdominal pain. No new pedal complaints. Pt denies and acute overnight events. Objective - Vital Signs/Intake and Output Vital Signs (last 24 hours): Temp Pulse Resp BP Pulse Ox 98.6 F 81 20 147/71 98 11/03/17 07:00 11/03/17 07:35 11/03/17 07:00 11/03/17 07:00 11/03/17 07:00 Intake and Output: 11/03/17 11/03/17 06:59 18:59 Intake Total 480 120 Balance 480 120 - Medications Medications: Current Medications Al Hydrox/Mg Hydrox/Simethicone (Maalox Plus 30 Ml) 30 ml PO Q6H PRN PRN Reason: Indigestion / Heartburn Last Admin: 10/30/17 17:32 Dose: 30 ml Amlodipine Besylate (Norvasc) 10 mg PO DAILY [facility] Last Admin: 10/20/17 09:57 Dose: Not Given Enoxaparin Sodium (Lovenox) 90 mg SC Q12 [facility] Last Admin: 11/03/17 09:21 Dose: 90 mg Ferric Sodium Gluconate Complex (Ferrlecit) 125 mg IVPB DAILY [facility] Stop: 11/06/17 10:01 Last Admin: 11/03/17 09:24 Dose: 125 mg Hydralazine HCl (Apresoline) 10 mg IVP Q6H PRN PRN Reason: Hypertension Last Admin: 10/30/17 17:37 Dose: 10 mg Folic Acid 1 mg/ Sodium (Chloride) 100.2 mls @ 60 mls/hr IV DAILY [facility] Last Admin: 11/03/17 11:00 Dose: 60 mls/hr Vancomycin/Sodium Chloride (Vancomycin 1 Gm/Ns 200 Ml) 1 gm in 200 mls @ 133.333 mls/hr IVPB Q24H [facility] PRN Reason: Protocol Stop: 11/05/17 18:01 Last Admin: 11/02/17 17:51 Dose: 133.333 mls/hr Insulin Aspart (Novolog) 0 unit SC Q6 [facility] PRN Reason: Protocol Last Admin: 11/03/17 11:37 Dose: 6 unit Losartan Potassium (Cozaar) 50 mg PO DAILY [facility] Last Admin: 11/03/17 09:23 Dose: 50 mg Metoprolol Succinate (Toprol Xl) 25 mg PO DAILY [facility] Last Admin: 11/03/17 09:23 Dose: 25 mg Morphine Sulfate (Morphine) 2 mg IVP Q4 PRN PRN Reason: Pain, moderate (4-7) Last Admin: 11/02/17 18:03 Dose: 2 mg Mupirocin (Bactroban 2% Nasal) 0.5 gm BROOK BID [facility] Last Admin: 11/03/17 09:20 Dose: 0.5 gm Nitroglycerin (Nitro-Bid 2% Oint) 1 ea TOP Q6 [facility] Last Admin: 11/03/17 11:37 Dose: 1 ea Ondansetron HCl (Zofran Inj) 4 mg IVP Q6H PRN PRN Reason: Nausea/Vomiting Last Admin: 10/30/17 08:51 Dose: 4 mg Pantoprazole Sodium (Protonix Inj) 40 mg IVP Q12H [facility] Last Admin: 11/03/17 06:45 Dose: 40 mg Phenytoin (Dilantin) 100 mg IVP Q8H [facility] Last Admin: 11/03/17 11:45 Dose: 100 mg - Labs Labs: 11/03/17 08:49 11/03/17 08:49 PT 13.6 SECONDS (9.7-12.2) H 11/03/17 08:49 INR 1.2 11/03/17 08:49 APTT 29 SECONDS (21-34) 10/29/17 06:10 - Constitutional Appears: Well, Non-toxic, No Acute Distress - Extremities Exam Additional comments: LLE focused: Dressing to left foot clean, dry, and intact. Vasc: DP and PT pulses are non-palpable, skin temp runs cool to cool (proximal to distal) lower extremities cool to cool Ortho: Mild pain with palpation to the left hallux and surrounding periwound, MM is 4/5 in all four compartments consistent with age Neuro: gross sensation intact bilaterally, protective sensation diminished Derm: Dry gangrene noted to the distal left hallux to the level of the IPJ with nail plate absent from nail bed, wound base is 100% necrotic base, with distal mummification with demarcating process noted. No active drainage nor purulent discharge noted or expressed, no malodor, no appreciable erythema or streaking, no probe to bone, no tunneling, no undermining. 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 Discussed with attending Dr. Bhat, who endorsed the following plan. Chart, labs, and vitals reviewed; afebrile, no leukocytosis -Continue conservative care for toe at this time, betadine + DSD applied -Continue IV abx per ID -Podiatry surgical intervention for left hallux amputation Monday11/06/17 midday. Pt desired for digital amputation to be performed on this admission. Discussed with pt at length potential risk (including potential loss of limb), benefits, complications, and alternatives por proposed sirgical procedure. No guarantees given nor implied. Pt agrees to proceed with surgical procedure and verbalizes understanding of the above. -Medical clearance obtained. Per PMD pt is medically stable for surgery with average risk -Vascular clearance-pending. -NPO ordered for 11/06/17 in AM. Pt currently on Soft diet. -Anticoagulants to be held Monday. Podiatry will continue to follow while inhouse.
[2017-11-03] MEDS: Vancomycin 1 gm/NS 200 ml 1 GM/200 ML BAG IVPB SCH (18:01)
--- NOTE | 2017-11-03 21:01 | PN ---
DATE: 11/03/2017 SUBJECTIVE: The patient denies any chest pain or shortness of breath. The patient is planning to have left big toe amputation on Monday. PHYSICAL EXAMINATION: VITAL SIGNS: Blood pressure 130/54, heart rate 82, temperature 99, and respirations 20. HEENT: Pale conjunctivae. CHEST: Clear. HEART: S1 and S2, regular. EXTREMITIES: 1+ pitting edema. LABORATORY DATA: Today's hemoglobin and hematocrit 8.6 and 25.4, white count and platelet count are within normal limits. Today's SMA-7 is within normal limits except for glucose of 206. Today's his INR is 1.2. ASSESSMENT: 1. Status post lower gastrointestinal bleeding. 2. Status post distal small bowel resection. 3. Peripheral vascular disease, status post recent left lower extremity stenting with gangrenous left big toe, for planned amputation of that toe on Monday. 4. Status post mitral and aortic valve replacement. RECOMMENDATIONS: Discontinue Coumadin. Continue hydralazine, Cozaar, Dilantin, and therapeutic subcutaneous Lovenox at 90 mg twice a day. The patient can undergo the left big toe amputation from the cardiac point of view. Postoperative telemetry monitoring. Hold Monday a.m. subcutaneous Lovenox. Kraig Sheldon MD
--- NOTE | 2017-11-03 23:08 | CP.PCM.PN ---
Subjective - Date & Time of Evaluation Date of Evaluation: 11/03/17 Time of Evaluation: 19:00 - Subjective Subjective: Patient seen and examined, POST OP. feeling better, post op wound is clean Objective - Vital Signs/Intake and Output Vital Signs (last 24 hours): Temp Pulse Resp BP Pulse Ox 99 F 4 L 20 130/54 L 95 11/03/17 16:00 11/03/17 16:00 11/03/17 16:00 11/03/17 16:00 11/03/17 16:00 Intake and Output: 11/03/17 11/04/17 18:59 06:59 Intake Total 120 50 Balance 120 50 - Medications Medications: Current Medications Al Hydrox/Mg Hydrox/Simethicone (Maalox Plus 30 Ml) 30 ml PO Q6H PRN PRN Reason: Indigestion / Heartburn Last Admin: 10/30/17 17:32 Dose: 30 ml Amlodipine Besylate (Norvasc) 10 mg PO DAILY [facility] Last Admin: 10/20/17 09:57 Dose: Not Given Enoxaparin Sodium (Lovenox) 90 mg SC Q12 [facility] Last Admin: 11/03/17 21:41 Dose: 90 mg Ferric Sodium Gluconate Complex (Ferrlecit) 125 mg IVPB DAILY [facility] Stop: 11/06/17 10:01 Last Admin: 11/03/17 09:24 Dose: 125 mg Hydralazine HCl (Apresoline) 10 mg IVP Q6H PRN PRN Reason: Hypertension Last Admin: 10/30/17 17:37 Dose: 10 mg Folic Acid 1 mg/ Sodium (Chloride) 100.2 mls @ 60 mls/hr IV DAILY [facility] Last Admin: 11/03/17 11:00 Dose: 60 mls/hr Vancomycin/Sodium Chloride (Vancomycin 1 Gm/Ns 200 Ml) 1 gm in 200 mls @ 133.333 mls/hr IVPB Q24H [facility] PRN Reason: Protocol Stop: 11/05/17 18:01 Last Admin: 11/03/17 18:01 Dose: 133.333 mls/hr Insulin Aspart (Novolog) 0 unit SC Q6 [facility] PRN Reason: Protocol Last Admin: 11/03/17 18:02 Dose: 4 unit Losartan Potassium (Cozaar) 50 mg PO DAILY [facility] Last Admin: 04/20/18 09:23 Dose: 50 mg Metoprolol Succinate (Toprol Xl) 25 mg PO DAILY [facility] Last Admin: 11/03/17 09:23 Dose: 25 mg Morphine Sulfate (Morphine) 2 mg IVP Q4 PRN PRN Reason: Pain, moderate (4-7) Last Admin: 11/02/17 18:03 Dose: 2 mg Mupirocin (Bactroban 2% Nasal) 0.5 gm BROOK BID [facility] Last Admin: 11/03/17 18:03 Dose: 0.5 gm Nitroglycerin (Nitro-Bid 2% Oint) 1 ea TOP Q6 [facility] Last Admin: 11/03/17 18:01 Dose: 1 ea Ondansetron HCl (Zofran Inj) 4 mg IVP Q6H PRN PRN Reason: Nausea/Vomiting Last Admin: 10/30/17 08:51 Dose: 4 mg Pantoprazole Sodium (Protonix Inj) 40 mg IVP Q12H [facility] Last Admin: 11/03/17 18:01 Dose: 40 mg Phenytoin (Dilantin) 100 mg IVP Q8H [facility] Last Admin: 11/03/17 21:41 Dose: 100 mg - Labs Labs: 11/03/17 08:49 11/03/17 08:49 PT 13.6 SECONDS (9.7-12.2) H 11/03/17 08:49 INR 1.2 11/03/17 08:49 APTT 29 SECONDS (21-34) 10/29/17 06:10 - Constitutional Appears: No Acute Distress - Head Exam Head Exam: ATRAUMATIC, NORMAL INSPECTION, NORMOCEPHALIC - Eye Exam Eye Exam: EOMI, Normal appearance, PERRL Pupil Exam: NORMAL ACCOMODATION, PERRL - ENT Exam ENT Exam: Mucous Membranes Moist, Normal Exam - Respiratory Exam Respiratory Exam: Clear to Ausculation Bilateral, NORMAL BREATHING PATTERN - Cardiovascular Exam Cardiovascular Exam: REGULAR RHYTHM, +S1, +S2. absent: Murmur - GI/Abdominal Exam GI & Abdominal Exam: Soft, Normal Bowel Sounds. absent: Tenderness - Rectal Exam Rectal Exam: Deferred Assessment and Plan (1) GI bleed Status: Acute (2) Anemia Status: Acute (3) Toe gangrene Status: Acute (4) CAD (coronary artery disease) Status: Chronic
[2017-11-04] MEDS: Phenytoin 100 mg/2 ml Inj IVP SCH ×3 (05:14→20:30)
[2017-11-04] MEDS: Nitroglycerin 2% Ointment Foilpak UD TOP SCH ×5 (06:01→23:57)
[2017-11-04] MEDS: (Novolog) Insulin Aspart, Recombinant 100 u/ml 10 ml vial SC SCH ×4 (06:09→23:51)
[2017-11-04 07:57] LABS: HEMOGLOBIN 8.6 g/dL (11.0-16.0); MEAN CELL VOLUME 86.8 fL (81.0-99.0); MEAN CORPUSCULAR HEMOGLOBIN 29.5 pg (27.0-31.0); MEAN PLATELET VOLUME 8.9 fL (7.2-11.7); RBC 2.9 Mil/uL (3.80-5.20); RED CELL DISTRIBUTION WIDTH 15.4 % (11.5-14.5)
[2017-11-04 08:00] LABS: INR 1.2; PROTHROMBIN TIME 13.9 SECONDS (9.7-12.2)
--- NOTE | 2017-11-04 09:34 | CP.PCM.PN ---
Subjective - Date & Time of Evaluation Date of Evaluation: 11/04/17 Time of Evaluation: 09:31 - Subjective Subjective: Podiatry Progress Note- Dr. 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 Pt seen resting in bed at time of visit, appears to be in NAD, and AAO x 3. Reports well controlled pain to the L big toe. Denies f/ v/c/sob/cp/d/posterior calf pain when squeezed. Reports no nausea, return of appetite, tolerance of soft food diet, and decreased abdominal pain. No new pedal complaints. Pt denies and acute overnight events. States that the swelling in both of her legs has decreased at this time. Objective - Vital Signs/Intake and Output Vital Signs (last 24 hours): Temp Pulse Resp BP Pulse Ox 97.9 F 69 18 126/66 95 11/04/17 07:25 11/04/17 07:40 11/04/17 07:25 11/04/17 07:25 11/04/17 07:25 Intake and Output: 11/04/17 11/04/17 06:59 18:59 Intake Total 50 Balance 50 - Medications Medications: Current Medications Al Hydrox/Mg Hydrox/Simethicone (Maalox Plus 30 Ml) 30 ml PO Q6H PRN PRN Reason: Indigestion / Heartburn Last Admin: 10/30/17 17:32 Dose: 30 ml Amlodipine Besylate (Norvasc) 10 mg PO DAILY [facility] Last Admin: 10/20/17 09:57 Dose: Not Given Enoxaparin Sodium (Lovenox) 90 mg SC Q12 [facility] Last Admin: 11/03/17 21:41 Dose: 90 mg Ferric Sodium Gluconate Complex (Ferrlecit) 125 mg IVPB DAILY [facility] Stop: 11/06/17 10:01 Last Admin: 11/03/17 09:24 Dose: 125 mg Hydralazine HCl (Apresoline) 10 mg IVP Q6H PRN PRN Reason: Hypertension Last Admin: 10/30/17 17:37 Dose: 10 mg Folic Acid 1 mg/ Sodium (Chloride) 100.2 mls @ 60 mls/hr IV DAILY [facility] Last Admin: 11/03/17 11:00 Dose: 60 mls/hr Vancomycin/Sodium Chloride (Vancomycin 1 Gm/Ns 200 Ml) 1 gm in 200 mls @ 133.333 mls/hr IVPB Q24H [facility] PRN Reason: Protocol Stop: 11/05/17 18:01 Last Admin: 11/03/17 18:01 Dose: 133.333 mls/hr Insulin Aspart (Novolog) 0 unit SC Q6 [facility] PRN Reason: Protocol Last Admin: 11/04/17 06:09 Dose: 4 unit Losartan Potassium (Cozaar) 50 mg PO DAILY [facility] Last Admin: 11/03/17 09:23 Dose: 50 mg Metoprolol Succinate (Toprol Xl) 25 mg PO DAILY [facility] Last Admin: 11/03/17 09:23 Dose: 25 mg Morphine Sulfate (Morphine) 2 mg IVP Q4 PRN PRN Reason: Pain, moderate (4-7) Last Admin: 11/02/17 18:03 Dose: 2 mg Mupirocin (Bactroban 2% Nasal) 0.5 gm BROOK BID [facility] Last Admin: 11/03/17 18:03 Dose: 0.5 gm Nitroglycerin (Nitro-Bid 2% Oint) 1 ea TOP Q6 [facility] Last Admin: 11/04/17 06:01 Dose: 1 ea Ondansetron HCl (Zofran Inj) 4 mg IVP Q6H PRN PRN Reason: Nausea/Vomiting Last Admin: 10/30/17 08:51 Dose: 4 mg Pantoprazole Sodium (Protonix Inj) 40 mg IVP Q12H [facility] Last Admin: 11/04/17 06:01 Dose: 40 mg Phenytoin (Dilantin) 100 mg IVP Q8H [facility] Last Admin: 11/04/17 05:14 Dose: 100 mg - Labs Labs: 11/04/17 07:49 11/03/17 08:49 PT 13.9 SECONDS (9.7-12.2) H 11/04/17 07:49 INR 1.2 11/04/17 07:49 APTT 29 SECONDS (21-34) 10/29/17 06:10 - Constitutional Appears: Well, Non-toxic, No Acute Distress - Extremities Exam Additional comments: LLE focused: Dressing to left foot clean, dry, and intact. Vasc: DP and PT pulses are non-palpable, skin temp runs cool to cool (proximal to distal) lower extremities cool to cool. Minimal 1+ pitting edema noted to leg Ortho: Mild pain with palpation to the left hallux and surrounding periwound, MM is 4/5 in all four compartments consistent with age Neuro: gross sensation intact bilaterally, protective sensation diminished Derm: Dry gangrene noted to the distal left hallux to the level of the IPJ with nail plate absent from nail bed, wound base is 100% necrotic base, with distal mummification with demarcating process noted. No active drainage nor purulent discharge noted or expressed, no malodor, no appreciable erythema or streaking, no probe to bone, no tunneling, no undermining. 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 Bhat Afebrile, absent leukocytosis Continue IV abx per ID recs Continue medical management per Medicine Team L foot xray: OM distal hallux Wound cx: + MRSA CT angio: R- short seg stenosis prox SFA w/ long segment severe stenosis of the mid/distal SFA stent; L- SHort seg stenosis prox SFA Wound dressed with Betadine, DSD Patient to OR on Monday 11/06 for amputation of left hallux Medical clearance obtained and appreciated NPO order placed for midnight on 11/06 Lovenox to be held on 11/05/17 Podiatry will continue to follow while patient in house
[2017-11-04] MEDS: Ferric Sodium Gluconat Complex 62.5 mg/5 ml Vial IVPB SCH (09:39)
[2017-11-04 09:40] LABS: BLOOD UREA NITROGEN 10 mg/dL (7-17); CALCIUM 7.8 mg/dl (8.6-10.4); GFR AFRICAN-AMERICAN > 60; GFR NON-AFRICAN AMERICAN 57
[2017-11-04] MEDS: Mupirocin 2% Ointment (NASAL) NAS SCH ×2 (09:47→18:00)
[2017-11-04] MEDS: Metoprolol Succinate 25 mg XL Tab PO SCH (09:47)
[2017-11-04] MEDS: Enoxaparin 100 mg Syringe SC SCH ×2 (09:52→21:29)
[2017-11-04] MEDS: Oxycodone/Acetaminophen 5/325 mg Tab PO PRN ×2 (12:45→20:04)
[2017-11-04] MEDS: Potassium Chloride 20 mEq/15 ml LIQ UD PO SCH ×2 (15:52→20:01)
--- NOTE | 2017-11-04 17:44 | CP.PCM.PN ---
Subjective - Date & Time of Evaluation Date of Evaluation: 11/04/17 Time of Evaluation: 17:40 - Subjective Subjective: pt seen and examined Objective - Vital Signs/Intake and Output Vital Signs (last 24 hours): Temp Pulse Resp BP Pulse Ox 98.0 F 67 18 154/73 H 100 11/04/17 15:05 11/04/17 15:05 11/04/17 15:05 11/04/17 15:05 11/04/17 15:05 Intake and Output: 11/04/17 11/04/17 06:59 18:59 Intake Total 50 200 Balance 50 200 - Medications Medications: Current Medications Al Hydrox/Mg Hydrox/Simethicone (Maalox Plus 30 Ml) 30 ml PO Q6H PRN PRN Reason: Indigestion / Heartburn Last Admin: 10/30/17 17:32 Dose: 30 ml Amlodipine Besylate (Norvasc) 10 mg PO DAILY [facility] Last Admin: 10/20/17 09:57 Dose: Not Given Enoxaparin Sodium (Lovenox) 90 mg SC Q12 [facility] Last Admin: 11/04/17 09:52 Dose: 90 mg Ferric Sodium Gluconate Complex (Ferrlecit) 125 mg IVPB DAILY [facility] Stop: 11/06/17 10:01 Last Admin: 11/04/17 09:39 Dose: 125 mg Hydralazine HCl (Apresoline) 10 mg IVP Q6H PRN PRN Reason: Hypertension Last Admin: 10/30/17 17:37 Dose: 10 mg Folic Acid 1 mg/ Sodium (Chloride) 100.2 mls @ 60 mls/hr IV DAILY [facility] Last Admin: 11/04/17 10:58 Dose: 60 mls/hr Vancomycin/Sodium Chloride (Vancomycin 1 Gm/Ns 200 Ml) 1 gm in 200 mls @ 133.333 mls/hr IVPB Q24H [facility] PRN Reason: Protocol Stop: 11/05/17 18:01 Last Admin: 11/03/17 18:01 Dose: 133.333 mls/hr Insulin Aspart (Novolog) 0 unit SC Q6 [facility] PRN Reason: Protocol Last Admin: 11/04/17 12:43 Dose: 6 unit Losartan Potassium (Cozaar) 50 mg PO DAILY [facility] Last Admin: 11/04/17 09:47 Dose: 50 mg Metoprolol Succinate (Toprol Xl) 25 mg PO DAILY [facility] Last Admin: 11/04/17 09:47 Dose: 25 mg Mupirocin (Bactroban 2% Nasal) 0.5 gm BROOK BID [facility] Last Admin: 11/04/17 09:47 Dose: 0.5 gm Nitroglycerin (Nitro-Bid 2% Oint) 1 ea TOP Q6 [facility] Last Admin: 11/04/17 12:45 Dose: 1 ea Ondansetron HCl (Zofran Inj) 4 mg IVP Q6H PRN PRN Reason: Nausea/Vomiting Last Admin: 10/30/17 08:51 Dose: 4 mg Oxycodone/Acetaminophen (Percocet 5/325 Mg Tab) 1 tab PO Q6H PRN PRN Reason: Pain, moderate (4-7) Stop: 11/07/17 11:38 Last Admin: 11/04/17 12:45 Dose: 1 tab Pantoprazole Sodium (Protonix Inj) 40 mg IVP Q12H [facility] Last Admin: 11/04/17 06:01 Dose: 40 mg Phenytoin (Dilantin) 100 mg IVP Q8H [facility] Last Admin: 11/04/17 12:39 Dose: 100 mg Potassium Chloride (Potassium Chloride Oral Soln) 40 meq PO Q4 [facility] Stop: 11/04/17 20:01 Last Admin: 11/04/17 15:52 Dose: 40 meq - Labs Labs: 11/04/17 07:49 11/04/17 07:49 PT 13.9 SECONDS (9.7-12.2) H 11/04/17 07:49 INR 1.2 11/04/17 07:49 APTT 29 SECONDS (21-34) 10/29/17 06:10 Assessment and Plan (1) GI bleed Status: Acute (2) Anemia Status: Acute (3) Toe gangrene Status: Acute (4) CAD (coronary artery disease) Status: Chronic
[2017-11-04] MEDS: Vancomycin 1 gm/NS 200 ml 1 GM/200 ML BAG IVPB SCH (17:48)
--- NOTE | 2017-11-04 19:50 | CP.PCM.PN ---
Subjective - Date & Time of Evaluation Date of Evaluation: 11/03/17 Time of Evaluation: 11:00 - Subjective Subjective: Feels tired Objective - Vital Signs/Intake and Output Vital Signs (last 24 hours): Temp Pulse Resp BP Pulse Ox 98.0 F 76 18 154/73 H 100 11/04/17 15:05 11/04/17 19:31 11/04/17 15:05 11/04/17 15:05 11/04/17 15:05 Intake and Output: 11/04/17 11/05/17 18:59 06:59 Intake Total 200 400 Balance 200 400 - Medications Medications: Current Medications Al Hydrox/Mg Hydrox/Simethicone (Maalox Plus 30 Ml) 30 ml PO Q6H PRN PRN Reason: Indigestion / Heartburn Last Admin: 10/30/17 17:32 Dose: 30 ml Amlodipine Besylate (Norvasc) 10 mg PO DAILY [facility] Last Admin: 10/20/17 09:57 Dose: Not Given Enoxaparin Sodium (Lovenox) 90 mg SC Q12 [facility] Last Admin: 11/04/17 09:52 Dose: 90 mg Ferric Sodium Gluconate Complex (Ferrlecit) 125 mg IVPB DAILY [facility] Stop: 11/06/17 10:01 Last Admin: 11/04/17 09:39 Dose: 125 mg Hydralazine HCl (Apresoline) 10 mg IVP Q6H PRN PRN Reason: Hypertension Last Admin: 10/30/17 17:37 Dose: 10 mg Folic Acid 1 mg/ Sodium (Chloride) 100.2 mls @ 60 mls/hr IV DAILY [facility] Last Admin: 11/04/17 10:58 Dose: 60 mls/hr Vancomycin/Sodium Chloride (Vancomycin 1 Gm/Ns 200 Ml) 1 gm in 200 mls @ 133.333 mls/hr IVPB Q24H [facility] PRN Reason: Protocol Stop: 11/05/17 18:01 Last Admin: 11/04/17 17:48 Dose: 133.333 mls/hr Insulin Aspart (Novolog) 0 unit SC Q6 [facility] PRN Reason: Protocol Last Admin: 11/04/17 17:44 Dose: 4 unit Losartan Potassium (Cozaar) 50 mg PO DAILY [facility] Last Admin: 11/04/17 09:47 Dose: 50 mg Metoprolol Succinate (Toprol Xl) 25 mg PO DAILY [facility] Last Admin: 11/04/17 09:47 Dose: 25 mg Mupirocin (Bactroban 2% Nasal) 0.5 gm [facility] BID [facility] Last Admin: 11/04/17 18:00 Dose: 0.5 gm Nitroglycerin (Nitro-Bid 2% Oint) 1 ea TOP Q6 [facility] Last Admin: 11/04/17 17:52 Dose: 1 ea Ondansetron HCl (Zofran Inj) 4 mg IVP Q6H PRN PRN Reason: Nausea/Vomiting Last Admin: 10/30/17 08:51 Dose: 4 mg Oxycodone/Acetaminophen (Percocet 5/325 Mg Tab) 1 tab PO Q6H PRN PRN Reason: Pain, moderate (4-7) Stop: 11/07/17 11:38 Last Admin: 11/04/17 12:45 Dose: 1 tab Pantoprazole Sodium (Protonix Inj) 40 mg IVP Q12H [facility] Last Admin: 11/04/17 17:45 Dose: 40 mg Phenytoin (Dilantin) 100 mg IVP Q8H [facility] Last Admin: 11/04/17 12:39 Dose: 100 mg Potassium Chloride (Potassium Chloride Oral Soln) 40 meq PO Q4 [facility] Stop: 11/04/17 20:01 Last Admin: 11/04/17 15:52 Dose: 40 meq - Labs Labs: 11/04/17 07:49 11/04/17 07:49 PT 13.9 SECONDS (9.7-12.2) H 11/04/17 07:49 INR 1.2 11/04/17 07:49 APTT 29 SECONDS (21-34) 10/29/17 06:10 - Head Exam Head Exam: ATRAUMATIC - Eye Exam Eye Exam: Normal appearance - ENT Exam ENT Exam: Mucous Membranes Dry - Respiratory Exam Respiratory Exam: NORMAL BREATHING PATTERN - Cardiovascular Exam Cardiovascular Exam: +S1, +S2 - GI/Abdominal Exam GI & Abdominal Exam: Normal Bowel Sounds Assessment and Plan (1) Anemia Assessment & Plan: multifactorial; hypoproliferative erythroid response likely chronic iron deficiency from chronic slow GI blood loss while on anticoagulation exacerbated by acute faster GI bleeding 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
--- NOTE | 2017-11-04 19:51 | CP.PCM.PN ---
Subjective - Date & Time of Evaluation Date of Evaluation: 11/04/17 Time of Evaluation: 16:00 - Subjective Subjective: Has some foot pain. Objective - Vital Signs/Intake and Output Vital Signs (last 24 hours): Temp Pulse Resp BP Pulse Ox 98.0 F 76 18 154/73 H 100 11/04/17 15:05 11/04/17 19:31 11/04/17 15:05 11/04/17 15:05 11/04/17 15:05 Intake and Output: 11/04/17 11/05/17 18:59 06:59 Intake Total 200 400 Balance 200 400 - Medications Medications: Current Medications Al Hydrox/Mg Hydrox/Simethicone (Maalox Plus 30 Ml) 30 ml PO Q6H PRN PRN Reason: Indigestion / Heartburn Last Admin: 10/30/17 17:32 Dose: 30 ml Amlodipine Besylate (Norvasc) 10 mg PO DAILY [facility] Last Admin: 10/20/17 09:57 Dose: Not Given Enoxaparin Sodium (Lovenox) 90 mg SC Q12 [facility] Last Admin: 11/04/17 09:52 Dose: 90 mg Ferric Sodium Gluconate Complex (Ferrlecit) 125 mg IVPB DAILY [facility] Stop: 11/06/17 10:01 Last Admin: 11/04/17 09:39 Dose: 125 mg Hydralazine HCl (Apresoline) 10 mg IVP Q6H PRN PRN Reason: Hypertension Last Admin: 10/30/17 17:37 Dose: 10 mg Folic Acid 1 mg/ Sodium (Chloride) 100.2 mls @ 60 mls/hr IV DAILY [facility] Last Admin: 11/04/17 10:58 Dose: 60 mls/hr Vancomycin/Sodium Chloride (Vancomycin 1 Gm/Ns 200 Ml) 1 gm in 200 mls @ 133.333 mls/hr IVPB Q24H [facility] PRN Reason: Protocol Stop: 11/05/17 18:01 Last Admin: 11/04/17 17:48 Dose: 133.333 mls/hr Insulin Aspart (Novolog) 0 unit SC Q6 [facility] PRN Reason: Protocol Last Admin: 11/04/17 17:44 Dose: 4 unit Losartan Potassium (Cozaar) 50 mg PO DAILY [facility] Last Admin: 11/04/17 09:47 Dose: 50 mg Metoprolol Succinate (Toprol Xl) 25 mg PO DAILY [facility] Last Admin: 11/04/17 09:47 Dose: 25 mg Mupirocin (Bactroban 2% Nasal) 0.5 gm BROOK BID [facility] Last Admin: 11/04/17 18:00 Dose: 0.5 gm Nitroglycerin (Nitro-Bid 2% Oint) 1 ea TOP Q6 [facility] Last Admin: 11/04/17 17:52 Dose: 1 ea Ondansetron HCl (Zofran Inj) 4 mg IVP Q6H PRN PRN Reason: Nausea/Vomiting Last Admin: 10/30/17 08:51 Dose: 4 mg Oxycodone/Acetaminophen (Percocet 5/325 Mg Tab) 1 tab PO Q6H PRN PRN Reason: Pain, moderate (4-7) Stop: 11/07/17 11:38 Last Admin: 11/04/17 12:45 Dose: 1 tab Pantoprazole Sodium (Protonix Inj) 40 mg IVP Q12H [facility] Last Admin: 11/04/17 17:45 Dose: 40 mg Phenytoin (Dilantin) 100 mg IVP Q8H [facility] Last Admin: 11/04/17 12:39 Dose: 100 mg Potassium Chloride (Potassium Chloride Oral Soln) 40 meq PO Q4 [facility] Stop: 11/04/17 20:01 Last Admin: 11/04/17 15:52 Dose: 40 meq - Labs Labs: 11/04/17 07:49 11/04/17 07:49 PT 13.9 SECONDS (9.7-12.2) H 11/04/17 07:49 INR 1.2 11/04/17 07:49 APTT 29 SECONDS (21-34) 10/29/17 06:10 - Head Exam Head Exam: ATRAUMATIC - Eye Exam Eye Exam: Normal appearance - ENT Exam ENT Exam: Mucous Membranes Dry - Respiratory Exam Respiratory Exam: NORMAL BREATHING PATTERN - Cardiovascular Exam Cardiovascular Exam: +S1, +S2 - GI/Abdominal Exam GI & Abdominal Exam: Normal Bowel Sounds Assessment and Plan (1) Anemia Assessment & Plan: multifactorial; hypoproliferative erythroid response likely chronic iron deficiency from chronic slow GI blood loss while on anticoagulation exacerbated by acute faster GI bleeding 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
[2017-11-04] MEDS ORDERED: Epoetin Alfa 20000 UNIT/ML Inj SC ONE (19:52)
--- NOTE | 2017-11-04 20:21 | PN ---
DATE: 11/04/2017 SUBJECTIVE: The patient denies chest pain. She ambulated in the room on her own. PHYSICAL EXAMINATION: VITAL SIGNS: Blood pressure 145/65, heart rate 60, temperature 98.4, respirations 20. HEENT: [place] conjunctivae. CHEST: Clear. HEART: S1 and S2, regular. ABDOMEN: Soft. EXTREMITIES: Trace leg edema. LABORATORIES: Today's SMA-7, sodium 136, potassium 3.2, chloride 103, CO2 24, glucose 167, BUN 10, creatinine 1. Today's INR is 1.2. Today's hemoglobin and hematocrit 8.6 and 25.2. White count and platelet count are within normal limits. ASSESSMENT: 1. Status post mitral and aortic valve replacement. 2. Gangrenous left big toe. 3. Status post distal small bowel resection for lower gastrointestinal bleeding. 4. Hypokalemia. 5. Anemia. RECOMMENDATIONS: Continue current Cozaar 50 mg once a day, Dilantin 100 mg every 8 hours, hydralazine 10 mg intravenously every 6 hours p.r.n., subcutaneous Lovenox at 90 mg twice a day, Norvasc 10 mg once a day. The patient is refusing oral potassium chloride replacement today. Obtain BMP in a.m. Continue Toprol-XL 25 mg once a day and IV vancomycin 1 gm daily. The patient can undergo left big toe amputation from cardiac point of view. Hold Lovenox Monday p.m. dose. Kraig Sheldon MD
[2017-11-05] MEDS: Phenytoin 100 mg/2 ml Inj IVP SCH ×3 (04:56→20:34)
[2017-11-05] MEDS: Nitroglycerin 2% Ointment Foilpak UD TOP SCH ×4 (05:00→23:57)
[2017-11-05] MEDS: (Novolog) Insulin Aspart, Recombinant 100 u/ml 10 ml vial SC SCH ×3 (06:00→17:34)
[2017-11-05 07:43] LABS: BLOOD UREA NITROGEN 6 mg/dL (7-17); CALCIUM 7.9 mg/dl (8.6-10.4); GFR AFRICAN-AMERICAN > 60; GFR NON-AFRICAN AMERICAN 57
[2017-11-05] MEDS: Ferric Sodium Gluconat Complex 62.5 mg/5 ml Vial IVPB SCH (09:55)
[2017-11-05] MEDS: Metoprolol Succinate 25 mg XL Tab PO SCH (09:56)
[2017-11-05] MEDS: Enoxaparin 100 mg Syringe SC SCH (09:56)
[2017-11-05] MEDS: Mupirocin 2% Ointment (NASAL) NAS SCH ×2 (12:23→17:29)
--- NOTE | 2017-11-05 14:56 | CP.PCM.PN ---
Subjective - Date & Time of Evaluation Date of Evaluation: 11/05/17 Time of Evaluation: 14:53 - Subjective Subjective: Podiatry Progress Note- Dr. 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 Pt seen resting in bed at time of visit, appears to be in NAD, and AAO x 3. Reports well controlled pain to the L big toe. Denies f/ v/c/sob/cp/d/posterior calf pain when squeezed. Reports no nausea, return of appetite, tolerance of soft food diet, and decreased abdominal pain. No new pedal complaints. Pt denies and acute overnight events. Patient is aware that she is going to OR for amputation of hallux tomorrow. Will be NPO after midnight Objective - Vital Signs/Intake and Output Vital Signs (last 24 hours): Temp Pulse Resp BP Pulse Ox 98.5 F 76 18 134/65 97 11/05/17 07:37 11/05/17 07:37 11/05/17 07:37 11/05/17 07:37 11/05/17 07:37 Intake and Output: 11/05/17 11/05/17 06:59 18:59 Intake Total 400 Output Total 140 Balance 260 - Medications Medications: Current Medications Al Hydrox/Mg Hydrox/Simethicone (Maalox Plus 30 Ml) 30 ml PO Q6H PRN PRN Reason: Indigestion / Heartburn Last Admin: 10/30/17 17:32 Dose: 30 ml Amlodipine Besylate (Norvasc) 10 mg PO DAILY [facility] Last Admin: 10/20/17 09:57 Dose: Not Given Enoxaparin Sodium (Lovenox) 90 mg SC Q12 [facility] Last Admin: 11/05/17 09:56 Dose: 90 mg Ferric Sodium Gluconate Complex (Ferrlecit) 125 mg IVPB DAILY [facility] Stop: 11/06/17 10:01 Last Admin: 11/05/17 09:55 Dose: 125 mg Hydralazine HCl (Apresoline) 10 mg IVP Q6H PRN PRN Reason: Hypertension Last Admin: 10/30/17 17:37 Dose: 10 mg Folic Acid 1 mg/ Sodium (Chloride) 100.2 mls @ 60 mls/hr IV DAILY [facility] Last Admin: 11/05/17 09:55 Dose: 60 mls/hr Vancomycin/Sodium Chloride (Vancomycin 1 Gm/Ns 200 Ml) 1 gm in 200 mls @ 133.333 mls/hr IVPB Q24H [facility] PRN Reason: Protocol Stop: 11/05/17 18:01 Last Admin: 11/04/17 17:48 Dose: 133.333 mls/hr Insulin Aspart (Novolog) 0 unit SC Q6 [facility] PRN Reason: Protocol Last Admin: 11/05/17 12:22 Dose: 4 unit Losartan Potassium (Cozaar) 50 mg PO DAILY [facility] Last Admin: 11/05/17 09:56 Dose: 50 mg Metoprolol Succinate (Toprol Xl) 25 mg PO DAILY [facility] Last Admin: 11/05/17 09:56 Dose: 25 mg Mupirocin (Bactroban 2% Nasal) 0.5 gm BROOK BID [facility] Last Admin: 11/05/17 12:23 Dose: 0.5 gm Nitroglycerin (Nitro-Bid 2% Oint) 1 ea TOP Q6 [facility] Last Admin: 11/05/17 12:23 Dose: Not Given Ondansetron HCl (Zofran Inj) 4 mg IVP Q6H PRN PRN Reason: Nausea/Vomiting Last Admin: 10/30/17 08:51 Dose: 4 mg Oxycodone/Acetaminophen (Percocet 5/325 Mg Tab) 1 tab PO Q6H PRN PRN Reason: Pain, moderate (4-7) Stop: 11/07/17 11:38 Last Admin: 11/04/17 20:04 Dose: 1 tab Pantoprazole Sodium (Protonix Inj) 40 mg IVP Q12H [facility] Last Admin: 11/05/17 05:59 Dose: 40 mg Phenytoin (Dilantin) 100 mg IVP Q8H [facility] Last Admin: 11/05/17 12:22 Dose: 100 mg - Labs Labs: 11/04/17 07:49 11/05/17 07:13 PT 13.9 SECONDS (9.7-12.2) H 11/04/17 07:49 INR 1.2 11/04/17 07:49 APTT 29 SECONDS (21-34) 10/29/17 06:10 - Constitutional Appears: Well, Non-toxic, No Acute Distress - Extremities Exam Additional comments: LLE focused: Dressing to left foot clean, dry, and intact. Vasc: DP and PT pulses are non-palpable, skin temp runs cool to cool (proximal to distal) lower extremities cool to cool. Minimal 1+ pitting edema noted to leg Ortho: Mild pain with palpation to the left hallux and surrounding periwound, MM is 4/5 in all four compartments consistent with age Neuro: gross sensation intact bilaterally, protective sensation diminished Derm: Dry gangrene noted to the distal left hallux to the level of the IPJ with nail plate absent from nail bed, wound base is 100% necrotic base, with distal mummification with demarcating process noted. No active drainage nor purulent discharge noted or expressed, no malodor, no appreciable erythema or streaking, no probe to bone, no tunneling, no undermining. 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 Bhat Charts, labs, vitals reviewed Continue IV abx per ID Continue medical management per medicine team L foot xray: OM distal hallux Wound cx: + MRSA CT angio: R- short seg stenosis prox SFA w/ long segment severe stenosis of the mid/distal SFA stent; L- SHort seg stenosis prox SFA Wound dressed with betadine, DSD Patient to OR tomorrow for amputation of L hallux with Dr. Bhat Patient to be NPO after midnight Hold Lovenox at 22:00 Podiatry will continue to follow while patient in house
--- NOTE | 2017-11-05 15:24 | CP.PCM.PN ---
Subjective - Date & Time of Evaluation Date of Evaluation: 11/05/17 Time of Evaluation: 07:00 - Subjective Subjective: doing well going for amp hallux in am cont Vancopost op for 7 days Objective - Vital Signs/Intake and Output Vital Signs (last 24 hours): Temp Pulse Resp BP Pulse Ox 98.5 F 76 18 134/65 97 11/05/17 07:37 11/05/17 07:37 11/05/17 07:37 11/05/17 07:37 11/05/17 07:37 Intake and Output: 11/05/17 11/05/17 06:59 18:59 Intake Total 400 Output Total 140 Balance 260 - Medications Medications: Current Medications Al Hydrox/Mg Hydrox/Simethicone (Maalox Plus 30 Ml) 30 ml PO Q6H PRN PRN Reason: Indigestion / Heartburn Last Admin: 10/30/17 17:32 Dose: 30 ml Amlodipine Besylate (Norvasc) 10 mg PO DAILY [facility] Last Admin: 10/20/17 09:57 Dose: Not Given Enoxaparin Sodium (Lovenox) 90 mg SC Q12 [facility] Last Admin: 11/05/17 09:56 Dose: 90 mg Ferric Sodium Gluconate Complex (Ferrlecit) 125 mg IVPB DAILY [facility] Stop: 11/06/17 10:01 Last Admin: 11/05/17 09:55 Dose: 125 mg Hydralazine HCl (Apresoline) 10 mg IVP Q6H PRN PRN Reason: Hypertension Last Admin: 10/30/17 17:37 Dose: 10 mg Folic Acid 1 mg/ Sodium (Chloride) 100.2 mls @ 60 mls/hr IV DAILY [facility] Last Admin: 11/05/17 09:55 Dose: 60 mls/hr Vancomycin/Sodium Chloride (Vancomycin 1 Gm/Ns 200 Ml) 1 gm in 200 mls @ 133.333 mls/hr IVPB Q24H [facility] PRN Reason: Protocol Stop: 11/05/17 18:01 Last Admin: 11/04/17 17:48 Dose: 133.333 mls/hr Insulin Aspart (Novolog) 0 unit SC Q6 [facility] PRN Reason: Protocol Last Admin: 11/05/17 12:22 Dose: 4 unit Losartan Potassium (Cozaar) 50 mg PO DAILY [facility] Last Admin: 11/05/17 09:56 Dose: 50 mg Metoprolol Succinate (Toprol Xl) 25 mg PO DAILY [facility] Last Admin: 11/05/17 09:56 Dose: 25 mg Mupirocin (Bactroban 2% Nasal) 0.5 gm BROOK BID [facility] Last Admin: 11/05/17 12:23 Dose: 0.5 gm Nitroglycerin (Nitro-Bid 2% Oint) 1 ea TOP Q6 [facility] Last Admin: 11/05/17 12:23 Dose: Not Given Ondansetron HCl (Zofran Inj) 4 mg IVP Q6H PRN PRN Reason: Nausea/Vomiting Last Admin: 10/30/17 08:51 Dose: 4 mg Oxycodone/Acetaminophen (Percocet 5/325 Mg Tab) 1 tab PO Q6H PRN PRN Reason: Pain, moderate (4-7) Stop: 11/07/17 11:38 Last Admin: 11/04/17 20:04 Dose: 1 tab Pantoprazole Sodium (Protonix Inj) 40 mg IVP Q12H [facility] Last Admin: 11/05/17 05:59 Dose: 40 mg Phenytoin (Dilantin) 100 mg IVP Q8H [facility] Last Admin: 11/05/17 12:22 Dose: 100 mg - Labs Labs: 11/04/17 07:49 11/05/17 07:13 PT 13.9 SECONDS (9.7-12.2) H 11/04/17 07:49 INR 1.2 11/04/17 07:49 APTT 29 SECONDS (21-34) 10/29/17 06:10 - Constitutional Appears: Non-toxic, Chronically Ill - Head Exam Head Exam: NORMOCEPHALIC - Eye Exam Eye Exam: PERRL - ENT Exam ENT Exam: Mucous Membranes Dry, Normal External Ear Exam - Neck Exam Neck Exam: absent: Lymphadenopathy - Respiratory Exam Respiratory Exam: Decreased Breath Sounds Assessment and Plan (1) Anemia Status: Acute (2) Toe gangrene Status: Acute (3) CAD (coronary artery disease) Status: Chronic (4) Dyslipidemia Status: Chronic (5) PVD (peripheral vascular disease) Status: Chronic (6) Uncontrolled diabetes mellitus Status: Chronic
[2017-11-05] MEDS: Vancomycin 1 gm/NS 200 ml 1 GM/200 ML BAG IVPB SCH (18:06)
[2017-11-05] MEDS: Oxycodone/Acetaminophen 5/325 mg Tab PO PRN (20:41)
--- NOTE | 2017-11-05 23:16 | CP.PCM.PN ---
Subjective - Date & Time of Evaluation Date of Evaluation: 11/05/17 Time of Evaluation: 17:00 - Subjective Subjective: Pt is seen and examined today during rounds Objective - Vital Signs/Intake and Output Vital Signs (last 24 hours): Temp Pulse Resp BP Pulse Ox 98.9 F 83 18 172/70 H 97 11/05/17 22:00 11/05/17 22:00 11/05/17 22:00 11/05/17 22:00 11/05/17 22:00 Intake and Output: 11/05/17 11/06/17 18:59 06:59 Intake Total 440 Balance 440 - Medications Medications: Current Medications Al Hydrox/Mg Hydrox/Simethicone (Maalox Plus 30 Ml) 30 ml PO Q6H PRN PRN Reason: Indigestion / Heartburn Last Admin: 10/30/17 17:32 Dose: 30 ml Amlodipine Besylate (Norvasc) 10 mg PO DAILY [facility] Last Admin: 10/20/17 09:57 Dose: Not Given Enoxaparin Sodium (Lovenox) 90 mg SC Q12 [facility] Last Admin: 11/05/17 09:56 Dose: 90 mg Ferric Sodium Gluconate Complex (Ferrlecit) 125 mg IVPB DAILY [facility] Stop: 11/06/17 10:01 Last Admin: 11/05/17 09:55 Dose: 125 mg Hydralazine HCl (Apresoline) 10 mg IVP Q6H PRN PRN Reason: Hypertension Last Admin: 10/30/17 17:37 Dose: 10 mg Folic Acid 1 mg/ Sodium (Chloride) 100.2 mls @ 60 mls/hr IV DAILY [facility] Last Admin: 11/05/17 09:55 Dose: 60 mls/hr Insulin Aspart (Novolog) 0 unit SC Q6 [facility] PRN Reason: Protocol Last Admin: 11/05/17 17:34 Dose: 2 unit Losartan Potassium (Cozaar) 50 mg PO DAILY [facility] Last Admin: 11/05/17 09:56 Dose: 50 mg Metoprolol Succinate (Toprol Xl) 25 mg PO DAILY [facility] Last Admin: 11/05/17 09:56 Dose: 25 mg Mupirocin (Bactroban 2% Nasal) 0.5 gm BROOK BID [facility] Last Admin: 11/05/17 17:29 Dose: 0.5 gm Nitroglycerin (Nitro-Bid 2% Oint) 1 ea TOP Q6 [facility] Last Admin: 11/05/17 17:24 Dose: 1 ea Ondansetron HCl (Zofran Inj) 4 mg IVP Q6H PRN PRN Reason: Nausea/Vomiting Last Admin: 10/30/17 08:51 Dose: 4 mg Oxycodone/Acetaminophen (Percocet 5/325 Mg Tab) 1 tab PO Q6H PRN PRN Reason: Pain, moderate (4-7) Stop: 11/07/17 11:38 Last Admin: 11/05/17 20:41 Dose: 1 tab Pantoprazole Sodium (Protonix Inj) 40 mg IVP Q12H [facility] Last Admin: 11/05/17 17:25 Dose: 40 mg Phenytoin (Dilantin) 100 mg IVP Q8H [facility] Last Admin: 11/05/17 20:34 Dose: 100 mg - Labs Labs: 11/04/17 07:49 11/05/17 07:13 PT 13.9 SECONDS (9.7-12.2) H 11/04/17 07:49 INR 1.2 11/04/17 07:49 APTT 29 SECONDS (21-34) 10/29/17 06:10 Assessment and Plan (1) GI bleed Status: Acute (2) Anemia Status: Acute (3) Toe gangrene Status: Acute (4) CAD (coronary artery disease) Status: Chronic
[2017-11-06] MEDS: Phenytoin 100 mg/2 ml Inj IVP SCH (04:45)
[2017-11-06] MEDS: Nitroglycerin 2% Ointment Foilpak UD TOP SCH ×4 (05:46→23:52)
[2017-11-06] MEDS: (Novolog) Insulin Aspart, Recombinant 100 u/ml 10 ml vial SC SCH ×5 (05:55→23:56)
[2017-11-06 07:25] LABS: HEMOGLOBIN 9.2 g/dL (11.0-16.0); MEAN CELL VOLUME 87.5 fL (81.0-99.0); MEAN CORPUSCULAR HEMOGLOBIN 29.4 pg (27.0-31.0); MEAN CORPUSCULAR HGB CONC 33.6 g/dL (33.0-37.0); MEAN PLATELET VOLUME 8.5 fL (7.2-11.7); RBC 3.14 Mil/uL (3.80-5.20); RED CELL DISTRIBUTION WIDTH 16.1 % (11.5-14.5); WHITE BLOOD COUNT 7.3 K/uL (4.8-10.8)
[2017-11-06] MEDS: Oxycodone/Acetaminophen 5/325 mg Tab PO PRN ×2 (07:55→21:05)
[2017-11-06] MEDS: Ferric Sodium Gluconat Complex 62.5 mg/5 ml Vial IVPB SCH (10:20)
[2017-11-06] MEDS: Metoprolol Succinate 25 mg XL Tab PO SCH (10:20)
[2017-11-06] MEDS: Mupirocin 2% Ointment (NASAL) NAS SCH ×2 (11:40→17:54)
[2017-11-06] MEDS: Vancomycin 1 gm/NS 200 ml 1 GM/200 ML BAG IVPB SCH (17:52)
--- NOTE | 2017-11-06 19:02 | PN ---
See Next report fot 11/06/2017 MTDD
--- NOTE | 2017-11-06 19:10 | PN ---
DATE: 11/06/2017 SUBJECTIVE: The patient denies any chest pain or shortness of breath. I did right big toe amputation. Plan for today is canceled and postponed to . PHYSICAL EXAMINATION: VITAL SIGNS: Blood pressure 160/69, heart rate 88, temperature 98.8, respirations 20. HEENT: [place] conjunctivae. CHEST: Clear. HEART: S1 and S2, regular. EXTREMITIES: Trace leg edema. Dressings applied to the left foot. LABORATORIES: Today's blood sugar is 224 and 180 respectively. Today's hemoglobin and hematocrit 9.2 and 27.5. White count and platelet count are within normal limits. ASSESSMENT: 1. Status post mitral and aortic valve replacement. 2. Status post small bowel resection for lower gastrointestinal bleeding. 3. Anemia. 4. Gangrenous left big toe. RECOMMENDATIONS: Continue current hydralazine 10 mg intravenously every six hours, Cozaar 50 mg once a day, therapeutic subcutaneous Lovenox will be resumed at 90 mg twice a day. Continue amlodipine. Continue Toprol-XL, Norvasc, IV vancomycin, and IV Phenytoin. Kraig Sheldon MD
--- NOTE | 2017-11-06 19:39 | CP.PCM.PN ---
Subjective - Date & Time of Evaluation Date of Evaluation: 11/06/17 Time of Evaluation: 10:10 - Subjective Subjective: Pt seen at bedside clinically same. Objective - Vital Signs/Intake and Output Vital Signs (last 24 hours): Temp Pulse Resp BP Pulse Ox 98.5 F 80 20 156/70 H 98 11/06/17 15:00 11/06/17 16:00 11/06/17 15:00 11/06/17 15:00 11/06/17 15:00 Intake and Output: 11/06/17 11/07/17 18:59 06:59 Intake Total 480 Balance 480 - Medications Medications: Current Medications Al Hydrox/Mg Hydrox/Simethicone (Maalox Plus 30 Ml) 30 ml PO Q6H PRN PRN Reason: Indigestion / Heartburn Last Admin: 10/30/17 17:32 Dose: 30 ml Amlodipine Besylate (Norvasc) 10 mg PO DAILY [facility] Last Admin: 10/20/17 09:57 Dose: Not Given Enoxaparin Sodium (Lovenox) 90 mg SC Q12 [facility] Last Admin: 11/05/17 09:56 Dose: 90 mg Hydralazine HCl (Apresoline) 10 mg IVP Q6H PRN PRN Reason: Hypertension Last Admin: 10/30/17 17:37 Dose: 10 mg Folic Acid 1 mg/ Sodium (Chloride) 100.2 mls @ 60 mls/hr IV DAILY [facility] Last Admin: 11/06/17 11:41 Dose: 60 mls/hr Vancomycin/Sodium Chloride (Vancomycin 1 Gm/Ns 200 Ml) 1 gm in 200 mls @ 133.333 mls/hr IVPB Q24H [facility] PRN Reason: Protocol Stop: 11/11/17 18:01 Last Admin: 11/06/17 17:52 Dose: 133.333 mls/hr Phenytoin 100 mg/ Sodium (Chloride) 52 mls @ 104 mls/hr IVPB Q8H [facility] Last Admin: 11/06/17 14:05 Dose: 104 mls/hr Insulin Aspart (Novolog) 0 unit SC Q6 [facility] PRN Reason: Protocol Last Admin: 11/06/17 17:53 Dose: 2 unit Losartan Potassium (Cozaar) 50 mg PO DAILY [facility] Last Admin: 11/06/17 10:20 Dose: 50 mg Metoprolol Succinate (Toprol Xl) 25 mg PO DAILY [facility] Last Admin: 11/06/17 10:20 Dose: 25 mg Mupirocin (Bactroban 2% Nasal) 0.5 gm BROOK BID [facility] Last Admin: 11/06/17 17:54 Dose: Not Given Nitroglycerin (Nitro-Bid 2% Oint) 1 ea TOP Q6 [facility] Last Admin: 11/06/17 17:53 Dose: 1 ea Ondansetron HCl (Zofran Inj) 4 mg IVP Q6H PRN PRN Reason: Nausea/Vomiting Last Admin: 10/30/17 08:51 Dose: 4 mg Oxycodone/Acetaminophen (Percocet 5/325 Mg Tab) 1 tab PO Q6H PRN PRN Reason: Pain, moderate (4-7) Stop: 11/07/17 11:38 Last Admin: 11/06/17 07:55 Dose: 1 tab Pantoprazole Sodium (Protonix Inj) 40 mg IVP Q12H [facility] Last Admin: 11/06/17 17:52 Dose: 40 mg - Labs Labs: 11/06/17 07:18 11/05/17 07:13 PT 13.9 SECONDS (9.7-12.2) H 11/04/17 07:49 INR 1.2 11/04/17 07:49 APTT 29 SECONDS (21-34) 10/29/17 06:10 Assessment and Plan - Assessment and Plan (Free Text) Assessment: 57 year old female with left hallux gangrene and distal great toe OM Plan: Pt seen and evaluated. Discussed with attending Dr. Bhat. \ Pt's left hallux amputation cancelled today due to scheduling conflict. Attending, would like to see stable consistent trend in H&H for additional day prior to taking pt to OR for amputation. -Procedure rescheduled for 11/09 in afternoon. Soft diet resumed. Anticoagulant Lovenox 90 BID resumed. Podiatry will follow while inhouse.
[2017-11-06] MEDS: Enoxaparin 100 mg Syringe SC SCH (21:13)
--- NOTE | 2017-11-06 21:45 | CP.PCM.PN ---
Subjective - Date & Time of Evaluation Date of Evaluation: 11/06/17 Time of Evaluation: 19:00 - Subjective Subjective: Has foot pain. Objective - Vital Signs/Intake and Output Vital Signs (last 24 hours): Temp Pulse Resp BP Pulse Ox 98.5 F 73 20 150/68 98 11/06/17 15:00 11/06/17 20:00 11/06/17 15:00 11/06/17 20:00 11/06/17 15:00 Intake and Output: 11/06/17 11/07/17 18:59 06:59 Intake Total 480 Balance 480 - Medications Medications: Current Medications Al Hydrox/Mg Hydrox/Simethicone (Maalox Plus 30 Ml) 30 ml PO Q6H PRN PRN Reason: Indigestion / Heartburn Last Admin: 10/30/17 17:32 Dose: 30 ml Amlodipine Besylate (Norvasc) 10 mg PO DAILY [facility] Last Admin: 10/20/17 09:57 Dose: Not Given Enoxaparin Sodium (Lovenox) 90 mg SC Q12 [facility] Last Admin: 11/06/17 21:13 Dose: 90 mg Hydralazine HCl (Apresoline) 10 mg IVP Q6H PRN PRN Reason: Hypertension Last Admin: 10/30/17 17:37 Dose: 10 mg Folic Acid 1 mg/ Sodium (Chloride) 100.2 mls @ 60 mls/hr IV DAILY [facility] Last Admin: 11/06/17 11:41 Dose: 60 mls/hr Vancomycin/Sodium Chloride (Vancomycin 1 Gm/Ns 200 Ml) 1 gm in 200 mls @ 133.333 mls/hr IVPB Q24H [facility] PRN Reason: Protocol Stop: 11/11/17 18:01 Last Admin: 11/06/17 17:52 Dose: 133.333 mls/hr Phenytoin 100 mg/ Sodium (Chloride) 52 mls @ 104 mls/hr IVPB Q8H [facility] Last Admin: 11/06/17 21:07 Dose: 104 mls/hr Insulin Aspart (Novolog) 0 unit SC Q6 [facility] PRN Reason: Protocol Last Admin: 11/06/17 17:53 Dose: 2 unit Losartan Potassium (Cozaar) 50 mg PO DAILY [facility] Last Admin: 11/06/17 10:20 Dose: 50 mg Metoprolol Succinate (Toprol Xl) 25 mg PO DAILY [facility] Last Admin: 11/06/17 10:20 Dose: 25 mg Mupirocin (Bactroban 2% Nasal) 0.5 gm BROOK BID [facility] Last Admin: 11/06/17 17:54 Dose: Not Given Nitroglycerin (Nitro-Bid 2% Oint) 1 ea TOP Q6 [facility] Last Admin: 11/06/17 17:53 Dose: 1 ea Ondansetron HCl (Zofran Inj) 4 mg IVP Q6H PRN PRN Reason: Nausea/Vomiting Last Admin: 10/30/17 08:51 Dose: 4 mg Oxycodone/Acetaminophen (Percocet 5/325 Mg Tab) 1 tab PO Q6H PRN PRN Reason: Pain, moderate (4-7) Stop: 11/07/17 11:38 Last Admin: 11/06/17 21:05 Dose: 1 tab Pantoprazole Sodium (Protonix Inj) 40 mg IVP Q12H [facility] Last Admin: 11/06/17 17:52 Dose: 40 mg - Labs Labs: 11/06/17 07:18 11/05/17 07:13 PT 13.9 SECONDS (9.7-12.2) H 11/04/17 07:49 INR 1.2 11/04/17 07:49 APTT 29 SECONDS (21-34) 10/29/17 06:10 - Head Exam Head Exam: ATRAUMATIC - Eye Exam Eye Exam: Normal appearance - ENT Exam ENT Exam: Mucous Membranes Dry - Respiratory Exam Respiratory Exam: NORMAL BREATHING PATTERN - Cardiovascular Exam Cardiovascular Exam: +S1, +S2 - GI/Abdominal Exam GI & Abdominal Exam: Normal Bowel Sounds Assessment and Plan (1) Anemia Assessment & Plan: multifactorial; hypoproliferative erythroid response likely chronic iron deficiency from chronic slow GI blood loss while on anticoagulation exacerbated by acute faster GI bleeding 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
--- NOTE | 2017-11-06 23:12 | CP.PCM.PN ---
Subjective - Date & Time of Evaluation Date of Evaluation: 11/06/17 Time of Evaluation: 19:00 - Subjective Subjective: Pt seen and evaluated at bedside Objective - Vital Signs/Intake and Output Vital Signs (last 24 hours): Temp Pulse Resp BP Pulse Ox 98.5 F 73 20 150/68 98 11/06/17 15:00 11/06/17 20:00 11/06/17 15:00 11/06/17 20:00 11/06/17 15:00 Intake and Output: 11/06/17 11/07/17 18:59 06:59 Intake Total 480 850 Balance 480 850 - Medications Medications: Current Medications Al Hydrox/Mg Hydrox/Simethicone (Maalox Plus 30 Ml) 30 ml PO Q6H PRN PRN Reason: Indigestion / Heartburn Last Admin: 10/30/17 17:32 Dose: 30 ml Amlodipine Besylate (Norvasc) 10 mg PO DAILY [facility] Last Admin: 10/20/17 09:57 Dose: Not Given Enoxaparin Sodium (Lovenox) 90 mg SC Q12 [facility] Last Admin: 11/06/17 21:13 Dose: 90 mg Hydralazine HCl (Apresoline) 10 mg IVP Q6H PRN PRN Reason: Hypertension Last Admin: 10/30/17 17:37 Dose: 10 mg Folic Acid 1 mg/ Sodium (Chloride) 100.2 mls @ 60 mls/hr IV DAILY [facility] Last Admin: 11/06/17 11:41 Dose: 60 mls/hr Vancomycin/Sodium Chloride (Vancomycin 1 Gm/Ns 200 Ml) 1 gm in 200 mls @ 133.333 mls/hr IVPB Q24H [facility] PRN Reason: Protocol Stop: 11/11/17 18:01 Last Admin: 11/06/17 17:52 Dose: 133.333 mls/hr Phenytoin 100 mg/ Sodium (Chloride) 52 mls @ 104 mls/hr IVPB Q8H [facility] Last Admin: 11/06/17 21:07 Dose: 104 mls/hr Insulin Aspart (Novolog) 0 unit SC Q6 [facility] PRN Reason: Protocol Last Admin: 11/06/17 17:53 Dose: 2 unit Losartan Potassium (Cozaar) 50 mg PO DAILY [facility] Last Admin: 11/06/17 10:20 Dose: 50 mg Metoprolol Succinate (Toprol Xl) 25 mg PO DAILY [facility] Last Admin: 11/06/17 10:20 Dose: 25 mg Mupirocin (Bactroban 2% Nasal) 0.5 gm BROOK BID [facility] Last Admin: 11/06/17 17:54 Dose: Not Given Nitroglycerin (Nitro-Bid 2% Oint) 1 ea TOP Q6 [facility] Last Admin: 11/06/17 17:53 Dose: 1 ea Ondansetron HCl (Zofran Inj) 4 mg IVP Q6H PRN PRN Reason: Nausea/Vomiting Last Admin: 10/30/17 08:51 Dose: 4 mg Oxycodone/Acetaminophen (Percocet 5/325 Mg Tab) 1 tab PO Q6H PRN PRN Reason: Pain, moderate (4-7) Stop: 11/07/17 11:38 Last Admin: 11/06/17 21:05 Dose: 1 tab Pantoprazole Sodium (Protonix Inj) 40 mg IVP Q12H [facility] Last Admin: 11/06/17 17:52 Dose: 40 mg - Labs Labs: 11/06/17 07:18 11/05/17 07:13 PT 13.9 SECONDS (9.7-12.2) H 11/04/17 07:49 INR 1.2 11/04/17 07:49 APTT 29 SECONDS (21-34) 10/29/17 06:10 Assessment and Plan (1) GI bleed Status: Acute (2) Anemia Status: Acute (3) Toe gangrene Status: Acute (4) CAD (coronary artery disease) Status: Chronic
[2017-11-07] MEDS: Nitroglycerin 2% Ointment Foilpak UD TOP SCH ×4 (05:53→23:59)
[2017-11-07] MEDS: (Novolog) Insulin Aspart, Recombinant 100 u/ml 10 ml vial SC SCH ×3 (05:53→17:23)
[2017-11-07 08:16] LABS: HEMOGLOBIN 8.9 g/dL (11.0-16.0); MEAN CELL VOLUME 87.7 fL (81.0-99.0); MEAN CORPUSCULAR HEMOGLOBIN 29.3 pg (27.0-31.0); MEAN CORPUSCULAR HGB CONC 33.4 g/dL (33.0-37.0); MEAN PLATELET VOLUME 8.2 fL (7.2-11.7); RBC 3.03 Mil/uL (3.80-5.20); RED CELL DISTRIBUTION WIDTH 16.3 % (11.5-14.5); WHITE BLOOD COUNT 8.2 K/uL (4.8-10.8)
[2017-11-07 08:36] LABS: BLOOD UREA NITROGEN 4 mg/dL (7-17); CALCIUM 8.1 mg/dl (8.6-10.4); GFR AFRICAN-AMERICAN > 60; GFR NON-AFRICAN AMERICAN > 60
[2017-11-07] MEDS: Metoprolol Succinate 25 mg XL Tab PO SCH (10:26)
[2017-11-07] MEDS: Enoxaparin 100 mg Syringe SC SCH ×2 (10:26→21:11)
[2017-11-07] MEDS: Mupirocin 2% Ointment (NASAL) NAS SCH ×2 (12:32→18:26)
[2017-11-07] MEDS ORDERED: Epoetin Alfa 20000 UNIT/ML Inj SC ONE (12:58)
--- NOTE | 2017-11-07 13:49 | CP.PCM.PCO ---
Physician Communication Note - Physician Communication Note Physician Communication Note: Pt is clear from a vascular standpoint for podiatry surgery
[2017-11-07] MEDS: Oxycodone/Acetaminophen 5/325 mg Tab PO PRN ×2 (15:03→21:12)
[2017-11-07] MEDS: Vancomycin 1 gm/NS 200 ml 1 GM/200 ML BAG IVPB SCH (17:24)
--- NOTE | 2017-11-07 19:15 | PN ---
DATE: 11/07/2017. SUBJECTIVE: The patient denies chest pain, abdominal pain or black stool. PHYSICAL EXAMINATION: VITAL SIGNS: Blood pressure 147/68, heart rate 74, temperature 98.3, respirations 20. HEENT: Pale conjunctiva. CHEST: Clear. HEART: S1 and S2 regular. EXTREMITIES: No edema. LABORATORY DATA: Hemoglobin and hematocrit 8.9 and 26.6, white count and platelet count today are within normal limits. Today's SMA-7 are within normal limits except for glucose of 145 and BUN of 4. ASSESSMENT: 1. Status post mitral and aortic valve replacement. 2. Peripheral vascular disease with gangrenous left big toe. 3. Status post history of small bowel resection for lower gastrointestinal bleeding. 4. Anemia. 5. Hypertension. RECOMMENDATION: Continue hydralazine 10 mg IV every 6 hours p.r.n. Continue Cozaar 60 mg once a day, therapeutic subcutaneous Lovenox at 90 mg twice a day, Norvasc 10 mg once a day, Toprol XL 25 mg once a day, vancomycin 1 gm daily. Planned toe amputation is for . Kraig Sheldon MD
--- NOTE | 2017-11-07 19:55 | CP.PCM.PN ---
Subjective - Date & Time of Evaluation Date of Evaluation: 11/07/17 Time of Evaluation: 12:00 - Subjective Subjective: Has some foot pain. Objective - Vital Signs/Intake and Output Vital Signs (last 24 hours): Temp Pulse Resp BP Pulse Ox 98.8 F 78 20 147/66 97 11/07/17 15:00 11/07/17 15:00 11/07/17 15:00 11/07/17 15:00 11/07/17 15:00 Intake and Output: 11/07/17 11/08/17 18:59 06:59 Intake Total 550 Balance 550 - Medications Medications: Current Medications Al Hydrox/Mg Hydrox/Simethicone (Maalox Plus 30 Ml) 30 ml PO Q6H PRN PRN Reason: Indigestion / Heartburn Last Admin: 10/30/17 17:32 Dose: 30 ml Amlodipine Besylate (Norvasc) 10 mg PO DAILY [facility] Last Admin: 10/20/17 09:57 Dose: Not Given Enoxaparin Sodium (Lovenox) 90 mg SC Q12 [facility] Last Admin: 11/07/17 10:26 Dose: 90 mg Hydralazine HCl (Apresoline) 10 mg IVP Q6H PRN PRN Reason: Hypertension Last Admin: 10/30/17 17:37 Dose: 10 mg Folic Acid 1 mg/ Sodium (Chloride) 100.2 mls @ 60 mls/hr IV DAILY [facility] Last Admin: 11/07/17 10:27 Dose: 60 mls/hr Vancomycin/Sodium Chloride (Vancomycin 1 Gm/Ns 200 Ml) 1 gm in 200 mls @ 133.333 mls/hr IVPB Q24H [facility] PRN Reason: Protocol Stop: 11/11/17 18:01 Last Admin: 11/07/17 17:24 Dose: 133.333 mls/hr Phenytoin 100 mg/ Sodium (Chloride) 52 mls @ 104 mls/hr IVPB Q8H [facility] Last Admin: 11/07/17 14:00 Dose: 104 mls/hr Insulin Aspart (Novolog) 0 unit SC Q6 [facility] PRN Reason: Protocol Last Admin: 11/07/17 17:23 Dose: 2 unit Losartan Potassium (Cozaar) 50 mg PO DAILY [facility] Last Admin: 11/07/17 10:26 Dose: 50 mg Metoprolol Succinate (Toprol Xl) 25 mg PO DAILY [facility] Last Admin: 11/07/17 10:26 Dose: 25 mg Mupirocin (Bactroban 2% Nasal) 0.25 gm BROOK BID [facility] Last Admin: 11/07/17 18:26 Dose: 0.25 gm Nitroglycerin (Nitro-Bid 2% Oint) 1 ea TOP Q6 [facility] Last Admin: 11/07/17 17:24 Dose: 1 ea Ondansetron HCl (Zofran Inj) 4 mg IVP Q6H PRN PRN Reason: Nausea/Vomiting Last Admin: 10/30/17 08:51 Dose: 4 mg Oxycodone/Acetaminophen (Percocet 5/325 Mg Tab) 1 tab PO Q6H PRN PRN Reason: Pain, moderate (4-7) Stop: 11/10/17 14:37 Last Admin: 11/07/17 15:03 Dose: 1 tab Pantoprazole Sodium (Protonix Inj) 40 mg IVP Q12H [facility] Last Admin: 11/07/17 17:23 Dose: 40 mg - Labs Labs: 11/07/17 08:02 11/07/17 08:02 PT 13.9 SECONDS (9.7-12.2) H 11/04/17 07:49 INR 1.2 11/04/17 07:49 APTT 29 SECONDS (21-34) 10/29/17 06:10 - Head Exam Head Exam: ATRAUMATIC - Eye Exam Eye Exam: Normal appearance - ENT Exam ENT Exam: Mucous Membranes Dry - Respiratory Exam Respiratory Exam: NORMAL BREATHING PATTERN - Cardiovascular Exam Cardiovascular Exam: +S1, +S2 - GI/Abdominal Exam GI & Abdominal Exam: Normal Bowel Sounds Assessment and Plan (1) Anemia Assessment & Plan: multifactorial; hypoproliferative erythroid response likely chronic iron deficiency from chronic slow GI blood loss while on anticoagulation exacerbated by acute faster GI bleeding 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
--- NOTE | 2017-11-07 23:28 | CP.PCM.PN ---
Subjective - Date & Time of Evaluation Date of Evaluation: 11/07/17 Time of Evaluation: 18:00 - Subjective Subjective: Pt seen and examined, c/o fatigue and weakness along with foot pain Objective - Vital Signs/Intake and Output Vital Signs (last 24 hours): Temp Pulse Resp BP Pulse Ox 98.8 F 78 20 147/66 97 11/07/17 15:00 11/07/17 15:00 11/07/17 15:00 11/07/17 15:00 11/07/17 15:00 Intake and Output: 11/07/17 11/08/17 18:59 06:59 Intake Total 550 Balance 550 - Medications Medications: Current Medications Al Hydrox/Mg Hydrox/Simethicone (Maalox Plus 30 Ml) 30 ml PO Q6H PRN PRN Reason: Indigestion / Heartburn Last Admin: 10/30/17 17:32 Dose: 30 ml Amlodipine Besylate (Norvasc) 10 mg PO DAILY [facility] Last Admin: 10/20/17 09:57 Dose: Not Given Enoxaparin Sodium (Lovenox) 90 mg SC Q12 [facility] Last Admin: 11/07/17 21:11 Dose: 90 mg Hydralazine HCl (Apresoline) 10 mg IVP Q6H PRN PRN Reason: Hypertension Last Admin: 10/30/17 17:37 Dose: 10 mg Folic Acid 1 mg/ Sodium (Chloride) 100.2 mls @ 60 mls/hr IV DAILY [facility] Last Admin: 11/07/17 10:27 Dose: 60 mls/hr Vancomycin/Sodium Chloride (Vancomycin 1 Gm/Ns 200 Ml) 1 gm in 200 mls @ 133.333 mls/hr IVPB Q24H [facility] PRN Reason: Protocol Stop: 11/11/17 18:01 Last Admin: 11/07/17 17:24 Dose: 133.333 mls/hr Phenytoin 100 mg/ Sodium (Chloride) 52 mls @ 104 mls/hr IVPB Q8H [facility] Last Admin: 11/07/17 21:11 Dose: 104 mls/hr Insulin Aspart (Novolog) 0 unit SC Q6 [facility] PRN Reason: Protocol Last Admin: 11/07/17 17:23 Dose: 2 unit Losartan Potassium (Cozaar) 50 mg PO DAILY [facility] Last Admin: 11/07/17 10:26 Dose: 50 mg Metoprolol Succinate (Toprol Xl) 25 mg PO DAILY [facility] Last Admin: 11/07/17 10:26 Dose: 25 mg Mupirocin (Bactroban 2% Nasal) 0.25 gm BROOK BID [facility] Last Admin: 11/07/17 18:26 Dose: 0.25 gm Nitroglycerin (Nitro-Bid 2% Oint) 1 ea TOP Q6 [facility] Last Admin: 11/07/17 17:24 Dose: 1 ea Ondansetron HCl (Zofran Inj) 4 mg IVP Q6H PRN PRN Reason: Nausea/Vomiting Last Admin: 10/30/17 08:51 Dose: 4 mg Oxycodone/Acetaminophen (Percocet 5/325 Mg Tab) 1 tab PO Q6H PRN PRN Reason: Pain, moderate (4-7) Stop: 11/10/17 14:37 Last Admin: 11/07/17 21:12 Dose: 1 tab Pantoprazole Sodium (Protonix Inj) 40 mg IVP Q12H [facility] Last Admin: 11/07/17 17:23 Dose: 40 mg - Labs Labs: 11/07/17 08:02 11/07/17 08:02 PT 13.9 SECONDS (9.7-12.2) H 11/04/17 07:49 INR 1.2 11/04/17 07:49 APTT 29 SECONDS (21-34) 10/29/17 06:10 Assessment and Plan (1) GI bleed Status: Acute (2) Anemia Assessment & Plan: (1) Anemia Assessment & Plan: multifactorial; hypoproliferative erythroid response likely chronic iron deficiency from chronic slow GI blood loss while on anticoagulation exacerbated by acute faster GI bleeding 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
[2017-11-08] MEDS: Nitroglycerin 2% Ointment Foilpak UD TOP SCH ×3 (05:06→17:31)
[2017-11-08] MEDS: (Novolog) Insulin Aspart, Recombinant 100 u/ml 10 ml vial SC SCH ×4 (06:30→17:31)
[2017-11-08] MEDS: Mupirocin 2% Ointment (NASAL) NAS SCH ×2 (09:44→17:38)
[2017-11-08] MEDS: Metoprolol Succinate 25 mg XL Tab PO SCH (09:44)
[2017-11-08] MEDS: Enoxaparin 100 mg Syringe SC SCH (09:45)
[2017-11-08] MEDS: Oxycodone/Acetaminophen 5/325 mg Tab PO PRN ×2 (09:56→18:54)
[2017-11-08] MEDS: Vancomycin 1 gm/NS 200 ml 1 GM/200 ML BAG IVPB SCH (17:30)
--- NOTE | 2017-11-08 18:19 | CP.PCM.PN ---
Subjective - Date & Time of Evaluation Date of Evaluation: 11/08/17 Time of Evaluation: 12:40 - Subjective Subjective: Podiatry Progress Note- Dr. Bhat 57 y/o female patient seen and evaluated at bedside for dry gangrene of L 1st hallux with underlying OM. Pt seen resting in bed at time of visit, appears to be in NAD, and more alert. Reports well controlled pain to the L big toe. Denies f/v/c/sob/or cp. Reports no nausea, return of appetite, tolerance of soft food diet, and decreased abdominal pain. No new pedal complaints. Pt denies and acute overnight events. Objective - Vital Signs/Intake and Output Vital Signs (last 24 hours): Temp Pulse Resp BP Pulse Ox 98.7 F 76 20 131/64 95 11/08/17 16:00 11/08/17 16:00 11/08/17 16:00 11/08/17 16:00 11/08/17 16:00 Intake and Output: 11/08/17 11/08/17 06:59 18:59 Intake Total 290 600 Balance 290 600 - Medications Medications: Current Medications Al Hydrox/Mg Hydrox/Simethicone (Maalox Plus 30 Ml) 30 ml PO Q6H PRN PRN Reason: Indigestion / Heartburn Last Admin: 10/30/17 17:32 Dose: 30 ml Amlodipine Besylate (Norvasc) 10 mg PO DAILY [facility] Last Admin: 10/20/17 09:57 Dose: Not Given Enoxaparin Sodium (Lovenox) 90 mg SC Q12 [facility] Last Admin: 11/08/17 09:45 Dose: 90 mg Hydralazine HCl (Apresoline) 10 mg IVP Q6H PRN PRN Reason: Hypertension Last Admin: 10/30/17 17:37 Dose: 10 mg Folic Acid 1 mg/ Sodium (Chloride) 100.2 mls @ 60 mls/hr IV DAILY [facility] Last Admin: 11/08/17 09:45 Dose: 60 mls/hr Vancomycin/Sodium Chloride (Vancomycin 1 Gm/Ns 200 Ml) 1 gm in 200 mls @ 133.333 mls/hr IVPB Q24H [facility] PRN Reason: Protocol Stop: 11/11/17 18:01 Last Admin: 11/08/17 17:30 Dose: 133.333 mls/hr Phenytoin 100 mg/ Sodium (Chloride) 52 mls @ 104 mls/hr IVPB Q8H [facility] Last Admin: 11/08/17 13:43 Dose: 104 mls/hr Insulin Aspart (Novolog) 0 unit SC Q6 [facility] PRN Reason: Protocol Last Admin: 11/08/17 17:31 Dose: 4 unit Losartan Potassium (Cozaar) 50 mg PO DAILY [facility] Last Admin: 11/08/17 09:44 Dose: 50 mg Metoprolol Succinate (Toprol Xl) 25 mg PO DAILY [facility] Last Admin: 11/08/17 09:44 Dose: 25 mg Mupirocin (Bactroban 2% Nasal) 0.25 gm BROOK BID [facility] Last Admin: 11/08/17 17:38 Dose: Not Given Nitroglycerin (Nitro-Bid 2% Oint) 1 ea TOP Q6 [facility] Last Admin: 11/08/17 17:31 Dose: 1 ea Ondansetron HCl (Zofran Inj) 4 mg IVP Q6H PRN PRN Reason: Nausea/Vomiting Last Admin: 10/30/17 08:51 Dose: 4 mg Oxycodone/Acetaminophen (Percocet 5/325 Mg Tab) 1 tab PO Q6H PRN PRN Reason: Pain, moderate (4-7) Stop: 11/10/17 14:37 Last Admin: 11/08/17 09:56 Dose: 1 tab Pantoprazole Sodium (Protonix Inj) 40 mg IVP Q12H [facility] Last Admin: 11/08/17 17:31 Dose: 40 mg - Labs Labs: 11/07/17 08:02 11/07/17 08:02 PT 13.9 SECONDS (9.7-12.2) H 11/04/17 07:49 INR 1.2 11/04/17 07:49 APTT 29 SECONDS (21-34) 10/29/17 06:10 - Constitutional Appears: Well, Non-toxic, No Acute Distress - Extremities Exam Additional comments: LLE focused: Dressing to left foot clean, dry, and intact. Vasc: DP and PT pulses are non-palpable, skin temp runs cool to cool (proximal to distal) lower extremities cool to cool Ortho: Mild pain with palpation to the left hallux and surrounding periwound, MM is 4/5 in all four compartments consistent with age Neuro: gross sensation intact bilaterally, protective sensation diminished Derm: Dry gangrene noted to the distal left hallux to the level of the IPJ with nail plate absent from nail bed, wound base is 100% necrotic base, with distal mummification with demarcating process noted. No active drainage nor purulent discharge noted or expressed, no malodor, no appreciable erythema or streaking, no probe to bone, no tunneling, no undermining. 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 Discussed with attending Dr. Bhat, who endorsed the following plan. Chart, labs, and vitals reviewed; afebrile, no leukocytosis -Continue conservative care for toe at this time, betadine + DSD applied -Continue IV abx per ID -Podiatry surgical intervention for left hallux amputation tomorrow 11/09/17 midday. -Discussed with pt at length potential risk (including potential subsequent amputations & eventual loss of limb), benefits, complications (delayed wound healing, infection, limited ambulation ability), and alternatives for proposed surgical procedure. No guarantees given nor implied. Detailed for pt extent of poor vascular condition and negative impact this has on beneficial desired surgical outcome. Pt agrees to proceed with surgical procedure and verbalizes understanding of the above. -Medical clearance obtained. Per PMD pt is medically stable for surgery with average risk -Vascular clearance-obtained -NPO ordered for 11/08/17 in AM. Pt currently on Soft diet. -Anticoagulants held. Podiatry will continue to follow while inhouse.
--- NOTE | 2017-11-08 18:46 | CP.PCM.PN ---
Subjective - Date & Time of Evaluation Date of Evaluation: 11/08/17 Time of Evaluation: 09:00 - Subjective Subjective: events noted afeb for or in am Objective - Vital Signs/Intake and Output Vital Signs (last 24 hours): Temp Pulse Resp BP Pulse Ox 98.7 F 78 20 131/64 95 11/08/17 16:00 11/08/17 16:00 11/08/17 16:00 11/08/17 16:00 11/08/17 16:00 Intake and Output: 11/08/17 11/08/17 06:59 18:59 Intake Total 290 600 Balance 290 600 - Medications Medications: Current Medications Al Hydrox/Mg Hydrox/Simethicone (Maalox Plus 30 Ml) 30 ml PO Q6H PRN PRN Reason: Indigestion / Heartburn Last Admin: 10/30/17 17:32 Dose: 30 ml Amlodipine Besylate (Norvasc) 10 mg PO DAILY [facility] Last Admin: 10/20/17 09:57 Dose: Not Given Enoxaparin Sodium (Lovenox) 90 mg SC Q12 [facility] Last Admin: 11/08/17 09:45 Dose: 90 mg Hydralazine HCl (Apresoline) 10 mg IVP Q6H PRN PRN Reason: Hypertension Last Admin: 10/30/17 17:37 Dose: 10 mg Folic Acid 1 mg/ Sodium (Chloride) 100.2 mls @ 60 mls/hr IV DAILY [facility] Last Admin: 11/08/17 09:45 Dose: 60 mls/hr Vancomycin/Sodium Chloride (Vancomycin 1 Gm/Ns 200 Ml) 1 gm in 200 mls @ 133.333 mls/hr IVPB Q24H [facility] PRN Reason: Protocol Stop: 11/11/17 18:01 Last Admin: 11/08/17 17:30 Dose: 133.333 mls/hr Phenytoin 100 mg/ Sodium (Chloride) 52 mls @ 104 mls/hr IVPB Q8H [facility] Last Admin: 11/08/17 13:43 Dose: 104 mls/hr Insulin Aspart (Novolog) 0 unit SC Q6 [facility] PRN Reason: Protocol Last Admin: 11/08/17 17:31 Dose: 4 unit Losartan Potassium (Cozaar) 50 mg PO DAILY [facility] Last Admin: 11/08/17 09:44 Dose: 50 mg Metoprolol Succinate (Toprol Xl) 25 mg PO DAILY [facility] Last Admin: 11/08/17 09:44 Dose: 25 mg Mupirocin (Bactroban 2% Nasal) 0.25 gm BROOK BID [facility] Last Admin: 11/08/17 17:38 Dose: Not Given Nitroglycerin (Nitro-Bid 2% Oint) 1 ea TOP Q6 [facility] Last Admin: 11/08/17 17:31 Dose: 1 ea Ondansetron HCl (Zofran Inj) 4 mg IVP Q6H PRN PRN Reason: Nausea/Vomiting Last Admin: 10/30/17 08:51 Dose: 4 mg Oxycodone/Acetaminophen (Percocet 5/325 Mg Tab) 1 tab PO Q6H PRN PRN Reason: Pain, moderate (4-7) Stop: 11/10/17 14:37 Last Admin: 11/08/17 09:56 Dose: 1 tab Pantoprazole Sodium (Protonix Inj) 40 mg IVP Q12H [facility] Last Admin: 11/08/17 17:31 Dose: 40 mg - Labs Labs: 11/07/17 08:02 11/07/17 08:02 PT 13.9 SECONDS (9.7-12.2) H 11/04/17 07:49 INR 1.2 11/04/17 07:49 APTT 29 SECONDS (21-34) 10/29/17 06:10 - Constitutional Appears: Non-toxic, Chronically Ill - Head Exam Head Exam: NORMOCEPHALIC - Eye Exam Eye Exam: PERRL - ENT Exam ENT Exam: Mucous Membranes Dry - Neck Exam Neck Exam: absent: Lymphadenopathy - Respiratory Exam Respiratory Exam: Decreased Breath Sounds - Cardiovascular Exam Cardiovascular Exam: REGULAR RHYTHM - GI/Abdominal Exam GI & Abdominal Exam: Distended, Soft Assessment and Plan (1) Anemia Status: Acute (2) Toe gangrene Status: Acute (3) CAD (coronary artery disease) Status: Chronic (4) Dyslipidemia Status: Chronic (5) PVD (peripheral vascular disease) Status: Chronic (6) Uncontrolled diabetes mellitus Status: Chronic
--- NOTE | 2017-11-08 21:14 | CP.PCM.PN ---
Subjective - Date & Time of Evaluation Date of Evaluation: 11/08/17 Time of Evaluation: 12:30 - Subjective Subjective: Has some foot pain. Objective - Vital Signs/Intake and Output Vital Signs (last 24 hours): Temp Pulse Resp BP Pulse Ox 98.7 F 78 20 179/77 H 95 11/08/17 16:00 11/08/17 16:00 11/08/17 16:00 11/08/17 19:50 11/08/17 16:00 Intake and Output: 11/08/17 11/09/17 18:59 06:59 Intake Total 600 Balance 600 - Medications Medications: Current Medications Al Hydrox/Mg Hydrox/Simethicone (Maalox Plus 30 Ml) 30 ml PO Q6H PRN PRN Reason: Indigestion / Heartburn Last Admin: 10/30/17 17:32 Dose: 30 ml Amlodipine Besylate (Norvasc) 10 mg PO DAILY [facility] Last Admin: 10/20/17 09:57 Dose: Not Given Enoxaparin Sodium (Lovenox) 90 mg SC Q12 [facility] Last Admin: 11/08/17 09:45 Dose: 90 mg Hydralazine HCl (Apresoline) 10 mg IVP Q6H PRN PRN Reason: Hypertension Last Admin: 11/08/17 19:45 Dose: 10 mg Folic Acid 1 mg/ Sodium (Chloride) 100.2 mls @ 60 mls/hr IV DAILY [facility] Last Admin: 11/08/17 09:45 Dose: 60 mls/hr Vancomycin/Sodium Chloride (Vancomycin 1 Gm/Ns 200 Ml) 1 gm in 200 mls @ 133.333 mls/hr IVPB Q24H [facility] PRN Reason: Protocol Stop: 11/11/17 18:01 Last Admin: 11/08/17 17:30 Dose: 133.333 mls/hr Phenytoin 100 mg/ Sodium (Chloride) 52 mls @ 104 mls/hr IVPB Q8H [facility] Last Admin: 11/08/17 20:41 Dose: 104 mls/hr Insulin Aspart (Novolog) 0 unit SC Q6 [facility] PRN Reason: Protocol Last Admin: 11/08/17 17:31 Dose: 4 unit Losartan Potassium (Cozaar) 50 mg PO DAILY [facility] Last Admin: 11/08/17 09:44 Dose: 50 mg Metoprolol Succinate (Toprol Xl) 25 mg PO DAILY [facility] Last Admin: 11/08/17 09:44 Dose: 25 mg Mupirocin (Bactroban 2% Nasal) 0.25 gm BROOK BID [facility] Last Admin: 11/08/17 17:38 Dose: Not Given Nitroglycerin (Nitro-Bid 2% Oint) 1 ea TOP Q6 [facility] Last Admin: 11/08/17 17:31 Dose: 1 ea Ondansetron HCl (Zofran Inj) 4 mg IVP Q6H PRN PRN Reason: Nausea/Vomiting Last Admin: 10/30/17 08:51 Dose: 4 mg Oxycodone/Acetaminophen (Percocet 5/325 Mg Tab) 1 tab PO Q6H PRN PRN Reason: Pain, moderate (4-7) Stop: 11/10/17 14:37 Last Admin: 11/08/17 18:54 Dose: 1 tab Pantoprazole Sodium (Protonix Inj) 40 mg IVP Q12H [facility] Last Admin: 11/08/17 17:31 Dose: 40 mg - Labs Labs: 11/07/17 08:02 11/07/17 08:02 PT 13.9 SECONDS (9.7-12.2) H 11/04/17 07:49 INR 1.2 11/04/17 07:49 APTT 29 SECONDS (21-34) 10/29/17 06:10 - Head Exam Head Exam: ATRAUMATIC - Eye Exam Eye Exam: Normal appearance - ENT Exam ENT Exam: Mucous Membranes Dry - Respiratory Exam Respiratory Exam: NORMAL BREATHING PATTERN - Cardiovascular Exam Cardiovascular Exam: +S1, +S2 - GI/Abdominal Exam GI & Abdominal Exam: Normal Bowel Sounds Assessment and Plan (1) Anemia Assessment & Plan: multifactorial; hypoproliferative erythroid response likely chronic iron deficiency from chronic slow GI blood loss while on anticoagulation exacerbated by acute faster GI bleeding 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
--- NOTE | 2017-11-08 22:42 | PN ---
DATE: 11/08/2017. SUBJECTIVE: The patient denies any chest pain. No rectal bleeding. No shortness of breath. PHYSICAL EXAMINATION: VITAL SIGNS: Blood pressure 131/64, heart rate 76, temperature 98.7, respirations 20. HEENT: Pale conjunctiva. CHEST: Clear. HEART: S1 and S2 regular. ABDOMEN: Soft. EXTREMITIES: Trace leg edema. ASSESSMENT: 1. Status post mitral and aortic valve replacement some 9 years ago. 2. Anemia. 3. Status post resection. 4. Lower gastrointestinal bleeding. 5. Gangrenous left big toe. 6. Peripheral vascular disease status post bilateral lower extremity intervention. Most recent one was on the left lower extremity few weeks ago. RECOMMENDATIONS: Continue hydralazine 10 mg IV every 6 hours p.r.n. Continue Cozaar 60 mg once a day. Hold tonight subcutaneous Lovenox dose. Continue Toprol XL 25 mg once a day. Continue IV vancomycin at 1 gm daily. The patient can undergo amputation tomorrow morning from the cardiac point of view with resumption of therapeutic subcutaneous Lovenox postoperatively. Kraig Sheldon MD
--- NOTE | 2017-11-08 23:58 | CP.PCM.PN ---
Subjective - Date & Time of Evaluation Date of Evaluation: 11/08/17 Time of Evaluation: 18:00 - Subjective Subjective: pt is seen and evaluated today Objective - Vital Signs/Intake and Output Vital Signs (last 24 hours): Temp Pulse Resp BP Pulse Ox 98.7 F 78 20 125/69 95 11/08/17 16:00 11/08/17 16:00 11/08/17 16:00 11/08/17 20:55 11/08/17 16:00 Intake and Output: 11/08/17 11/09/17 18:59 06:59 Intake Total 600 500 Balance 600 500 - Medications Medications: Current Medications Al Hydrox/Mg Hydrox/Simethicone (Maalox Plus 30 Ml) 30 ml PO Q6H PRN PRN Reason: Indigestion / Heartburn Last Admin: 10/30/17 17:32 Dose: 30 ml Amlodipine Besylate (Norvasc) 10 mg PO DAILY [facility] Last Admin: 10/20/17 09:57 Dose: Not Given Enoxaparin Sodium (Lovenox) 90 mg SC Q12 [facility] Last Admin: 11/08/17 09:45 Dose: 90 mg Hydralazine HCl (Apresoline) 10 mg IVP Q6H PRN PRN Reason: Hypertension Last Admin: 11/08/17 19:45 Dose: 10 mg Folic Acid 1 mg/ Sodium (Chloride) 100.2 mls @ 60 mls/hr IV DAILY [facility] Last Admin: 11/08/17 09:45 Dose: 60 mls/hr Vancomycin/Sodium Chloride (Vancomycin 1 Gm/Ns 200 Ml) 1 gm in 200 mls @ 133.333 mls/hr IVPB Q24H [facility] PRN Reason: Protocol Stop: 11/11/17 18:01 Last Admin: 11/08/17 17:30 Dose: 133.333 mls/hr Phenytoin 100 mg/ Sodium (Chloride) 52 mls @ 104 mls/hr IVPB Q8H [facility] Last Admin: 11/08/17 20:41 Dose: 104 mls/hr Insulin Aspart (Novolog) 0 unit SC Q6 [facility] PRN Reason: Protocol Last Admin: 11/08/17 17:31 Dose: 4 unit Losartan Potassium (Cozaar) 50 mg PO DAILY [facility] Last Admin: 11/08/17 09:44 Dose: 50 mg Metoprolol Succinate (Toprol Xl) 25 mg PO DAILY [facility] Last Admin: 11/08/17 09:44 Dose: 25 mg Mupirocin (Bactroban 2% Nasal) 0.25 gm BROOK BID [facility] Last Admin: 11/08/17 17:38 Dose: Not Given Nitroglycerin (Nitro-Bid 2% Oint) 1 ea TOP Q6 [facility] Last Admin: 11/08/17 17:31 Dose: 1 ea Ondansetron HCl (Zofran Inj) 4 mg IVP Q6H PRN PRN Reason: Nausea/Vomiting Last Admin: 10/30/17 08:51 Dose: 4 mg Oxycodone/Acetaminophen (Percocet 5/325 Mg Tab) 1 tab PO Q6H PRN PRN Reason: Pain, moderate (4-7) Stop: 11/10/17 14:37 Last Admin: 11/08/17 18:54 Dose: 1 tab Pantoprazole Sodium (Protonix Inj) 40 mg IVP Q12H [facility] Last Admin: 11/08/17 17:31 Dose: 40 mg - Labs Labs: 11/07/17 08:02 11/07/17 08:02 PT 13.9 SECONDS (9.7-12.2) H 11/04/17 07:49 INR 1.2 11/04/17 07:49 APTT 29 SECONDS (21-34) 10/29/17 06:10 Assessment and Plan (1) GI bleed Status: Acute (2) Anemia Status: Acute (3) Toe gangrene Status: Acute (4) CAD (coronary artery disease) Status: Chronic
[2017-11-09] MEDS: Nitroglycerin 2% Ointment Foilpak UD TOP SCH ×4 (00:02→17:12)
[2017-11-09] MEDS: (Novolog) Insulin Aspart, Recombinant 100 u/ml 10 ml vial SC SCH ×4 (00:52→17:10)
[2017-11-09 07:53] LABS: HEMOGLOBIN 8.8 g/dL (11.0-16.0); MEAN CELL VOLUME 89.2 fL (81.0-99.0); MEAN CORPUSCULAR HEMOGLOBIN 29.8 pg (27.0-31.0); MEAN CORPUSCULAR HGB CONC 33.4 g/dL (33.0-37.0); MEAN PLATELET VOLUME 8.2 fL (7.2-11.7); RBC 2.95 Mil/uL (3.80-5.20); RED CELL DISTRIBUTION WIDTH 16.4 % (11.5-14.5); WHITE BLOOD COUNT 8.2 K/uL (4.8-10.8)
[2017-11-09 07:57] LABS: INR 1.2; PROTHROMBIN TIME 12.9 SECONDS (9.7-12.2)
[2017-11-09 08:15] LABS: ALB/GLOB RATIO 0.8 (1.0-2.1); ALBUMIN 2.8 g/dL (3.5-5.0); ALT/SGPT 16 U/L (9-52); AST/SGOT 39 U/L (14-36); BLOOD UREA NITROGEN 6 mg/dL (7-17); CALCIUM 8.1 mg/dl (8.6-10.4); GFR AFRICAN-AMERICAN > 60; GFR NON-AFRICAN AMERICAN 57
[2017-11-09] MEDS ORDERED: ceFAZolin 1 gm in NS 0 GM/0 ML BAG IVPB ONE (08:46)
[2017-11-09] MEDS ORDERED: Bupivacaine HCl 0.5% PF (10 ml) Inj ONE (08:46)
[2017-11-09] MEDS ORDERED: Midazolam 2 MG/2 ML VIAL ONE (08:46)
[2017-11-09] MEDS ORDERED: Propofol 10 mg/ml Inj (20 ML) ONE (10:01)
[2017-11-09] MEDS: Lidocaine 2% Inj (20ml) IV ONE ×2 (10:03→10:13)
[2017-11-09] MEDS: Bupivacaine HCl 0.5% PF (30 ml) Inj ONE ×2 (10:04→10:13)
[2017-11-09] MEDS ORDERED: Labetalol 25mg/5ml Syringe ONE (10:22)
[2017-11-09] MEDS: Mupirocin 2% Ointment (NASAL) NAS SCH ×2 (10:29→17:12)
[2017-11-09] MEDS: Metoprolol Succinate 25 mg XL Tab PO SCH (10:30)
--- NOTE | 2017-11-09 11:10 | PCM.SURG1 ---
Surgeon's Initial Post Op Note - Surgeon's Notes Surgeon: Dr. Bhat Commercial Loan Analyst: Dr. Cinthia Boyce PGY-1, Dr. Angela Dodge PGY-2 Type of Anesthesia: IV Sedation, Local Anesthesia Administered By: Dr. Bowers Pre-Operative Diagnosis: left foot hallux gangrene with osteomyelitis Operative Findings: see operative report. I: 20cc 1:1 mix 2% Lidocaine plain and 0.5% Marcaine plain. M: 3-0 Vicryl, 4-0 Vicryl, 4-0 Nylon. Betadine soaked Adaptic, DSD Post-Operative Diagnosis: same Operation Performed: left foot hallux amputation with partial 1st metatarsal head resection Specimen/Specimens Removed: left hallux, 1st metatarsal head bone Estimated Blood Loss: EBL {In ML}: 5 Blood Products Given: N/A Drains Used: No Drains Post-Op Condition: Good Date of Surgery/Procedure: 11/09/17 Time of Surgery/Procedure: 11:09
[2017-11-09] MEDS ORDERED: HYDROmorphone 0.5 mg/0.5 ml ISec IVP PRN (11:12)
[2017-11-09] MEDS: Oxycodone/Acetaminophen 5/325 mg Tab PO PRN ×2 (15:03→21:07)
--- NOTE | 2017-11-09 15:41 | PN ---
DATE: 11/09/2017 SUBJECTIVE: The patient underwent left great toe amputation. She is back to her room. She denies any chest pain or shortness of breath. PHYSICAL EXAMINATION: VITAL SIGNS: Blood pressure 143/51, heart rate 78, temperature 97.2, respirations 16. HEENT: Pale conjunctivae. CHEST: Clear. HEART: S1 and S2 regular. Grade 2/6 ejection systolic murmur over the left sternal border. ABDOMEN: Soft. EXTREMITIES: No edema. LABORATORY DATA: Today's potassium is 3.3, glucose is 172. Today's hemoglobin and hematocrit are 8.8 and 26.3. Today's INR is 1.2. ASSESSMENT: 1. Status post left big toe amputation. 2. Anemia. 3. Hypokalemia. 4. Status post distal small bowel resection for lower gastrointestinal bleeding. 5. Status post mitral and aortic valve replacement. RECOMMENDATIONS: Continue current IV vancomycin at 1 gm daily. Resume Toprol-XL 25 mg once a day and resume therapeutic subcutaneous Lovenox at 90 mg twice a day once cleared by the rubber washer who performed the big toe amputation. I will administer KCl 20 mEq as intravenous replacement and follow up BMP in a.m. Obtain 12-lead EKG postoperatively. Kraig Sheldon MD
[2017-11-09] MEDS: Vancomycin 1 gm/NS 200 ml 1 GM/200 ML BAG IVPB SCH (17:11)
[2017-11-09] MEDS: Enoxaparin 100 mg Syringe SC SCH (21:51)
--- NOTE | 2017-11-09 23:52 | CP.PCM.PN ---
Subjective - Date & Time of Evaluation Date of Evaluation: 11/09/17 Time of Evaluation: 17:00 - Subjective Subjective: Pt seen and examined at bedside Objective - Vital Signs/Intake and Output Vital Signs (last 24 hours): Temp Pulse Resp BP Pulse Ox 98.8 F 80 20 122/65 96 11/09/17 15:52 11/09/17 19:10 11/09/17 15:52 11/09/17 15:52 11/09/17 15:52 Intake and Output: 11/09/17 11/10/17 18:59 06:59 Intake Total 800 900 Balance 800 900 - Medications Medications: Current Medications Al Hydrox/Mg Hydrox/Simethicone (Maalox Plus 30 Ml) 30 ml PO Q6H PRN PRN Reason: Indigestion / Heartburn Last Admin: 10/30/17 17:32 Dose: 30 ml Amlodipine Besylate (Norvasc) 10 mg PO DAILY [facility] Last Admin: 10/20/17 09:57 Dose: Not Given Enoxaparin Sodium (Lovenox) 90 mg SC Q12 [facility] Last Admin: 11/09/17 21:51 Dose: 90 mg Hydralazine HCl (Apresoline) 10 mg IVP Q6H PRN PRN Reason: Hypertension Last Admin: 11/08/17 19:45 Dose: 10 mg Folic Acid 1 mg/ Sodium (Chloride) 100.2 mls @ 60 mls/hr IV DAILY [facility] Last Admin: 11/09/17 10:29 Dose: Not Given Vancomycin/Sodium Chloride (Vancomycin 1 Gm/Ns 200 Ml) 1 gm in 200 mls @ 133.333 mls/hr IVPB Q24H [facility] PRN Reason: Protocol Stop: 11/11/17 18:01 Last Admin: 11/09/17 17:11 Dose: 133.333 mls/hr Phenytoin 100 mg/ Sodium (Chloride) 52 mls @ 104 mls/hr IVPB Q8H [facility] Last Admin: 11/09/17 21:53 Dose: 104 mls/hr Insulin Aspart (Novolog) 0 unit SC Q6 [facility] PRN Reason: Protocol Last Admin: 11/09/17 17:10 Dose: 6 unit Losartan Potassium (Cozaar) 50 mg PO DAILY [facility] Last Admin: 11/09/17 10:29 Dose: Not Given Metoprolol Succinate (Toprol Xl) 25 mg PO DAILY [facility] Last Admin: 11/09/17 10:30 Dose: Not Given Mupirocin (Bactroban 2% Nasal) 0.25 gm BROOK BID [facility] Last Admin: 11/09/17 17:12 Dose: 0.25 gm Nitroglycerin (Nitro-Bid 2% Oint) 1 ea TOP Q6 [facility] Last Admin: 11/09/17 17:12 Dose: 1 ea Ondansetron HCl (Zofran Inj) 4 mg IVP Q6H PRN PRN Reason: Nausea/Vomiting Last Admin: 10/30/17 08:51 Dose: 4 mg Oxycodone/Acetaminophen (Percocet 5/325 Mg Tab) 1 tab PO Q6H PRN PRN Reason: Pain, moderate (4-7) Stop: 11/10/17 14:37 Last Admin: 11/09/17 15:03 Dose: 1 tab Oxycodone/Acetaminophen (Percocet 5/325 Mg Tab) 2 tab PO Q4H PRN PRN Reason: Pain, severe (8-10) Stop: 11/12/17 20:43 Last Admin: 11/09/17 21:07 Dose: 2 tab Pantoprazole Sodium (Protonix Inj) 40 mg IVP Q12H [facility] Last Admin: 11/09/17 17:12 Dose: 40 mg - Labs Labs: 11/09/17 07:40 11/09/17 07:40 PT 12.9 SECONDS (9.7-12.2) H 11/09/17 07:40 INR 1.2 11/09/17 07:40 APTT 29 SECONDS (21-34) 10/29/17 06:10 Assessment and Plan (1) GI bleed Status: Acute (2) Anemia Status: Acute (3) Toe gangrene Status: Acute (4) CAD (coronary artery disease) Status: Chronic
[2017-11-10] MEDS: (Novolog) Insulin Aspart, Recombinant 100 u/ml 10 ml vial SC SCH ×4 (00:16→17:43)
[2017-11-10] MEDS: Nitroglycerin 2% Ointment Foilpak UD TOP SCH ×5 (00:38→23:40)
[2017-11-10] MEDS: Oxycodone/Acetaminophen 5/325 mg Tab PO PRN ×6 (01:57→19:11)
[2017-11-10 08:11] LABS: BASO % 0.6 % (0.0-2.0); EOS # 0.2 K/uL (0.0-0.7); EOS % 2.9 % (0.0-4.0); HEMOGLOBIN 8.9 g/dL (11.0-16.0); LYMPH # 1.2 K/uL (1.0-4.3); LYMPH % 15.4 % (20.0-40.0); MEAN CELL VOLUME 89.2 fL (81.0-99.0); MEAN CORPUSCULAR HEMOGLOBIN 30.3 pg (27.0-31.0); MEAN PLATELET VOLUME 8.2 fL (7.2-11.7); MONO # 0.7 K/uL (0.0-0.8); MONO % 9.5 % (0.0-10.0); NEUT # 5.6 K/uL (1.8-7.0); NEUT % 71.6 % (50.0-75.0); NRBC % 0.2 % (0.0-2.0); RBC 2.94 Mil/uL (3.80-5.20); RED CELL DISTRIBUTION WIDTH 17.2 % (11.5-14.5); WHITE BLOOD COUNT 7.8 K/uL (4.8-10.8)
[2017-11-10 08:22] LABS: BLOOD UREA NITROGEN 8 mg/dL (7-17); CALCIUM 8.1 mg/dl (8.6-10.4); GFR AFRICAN-AMERICAN > 60; GFR NON-AFRICAN AMERICAN > 60
[2017-11-10] MEDS: Mupirocin 2% Ointment (NASAL) NAS SCH ×2 (10:14→17:45)
[2017-11-10] MEDS: Metoprolol Succinate 25 mg XL Tab PO SCH (10:20)
[2017-11-10] MEDS: Enoxaparin 100 mg Syringe SC SCH ×2 (10:20→21:58)
[2017-11-10] MEDS ORDERED: Potassium Chloride 20 mEq ER Tab PO ONE (12:34)
--- NOTE | 2017-11-10 12:52 | CP.PCM.PCO ---
Physician Communication Note - Physician Communication Note Physician Communication Note: Removed mansi from abdominal incison at bedside
--- NOTE | 2017-11-10 12:53 | CP.PCM.PN ---
Subjective - Date & Time of Evaluation Date of Evaluation: 11/09/17 Time of Evaluation: 12:00 - Subjective Subjective: Has some foot pain. Objective - Vital Signs/Intake and Output Vital Signs (last 24 hours): Temp Pulse Resp BP Pulse Ox 98.6 F 84 20 172/68 H 97 11/10/17 07:54 11/10/17 12:27 11/10/17 07:54 11/10/17 12:27 11/10/17 07:54 Intake and Output: 11/10/17 11/10/17 06:59 18:59 Intake Total 900 Balance 900 - Medications Medications: Current Medications Al Hydrox/Mg Hydrox/Simethicone (Maalox Plus 30 Ml) 30 ml PO Q6H PRN PRN Reason: Indigestion / Heartburn Last Admin: 10/30/17 17:32 Dose: 30 ml Amlodipine Besylate (Norvasc) 10 mg PO DAILY [facility] Last Admin: 10/20/17 09:57 Dose: Not Given Enoxaparin Sodium (Lovenox) 90 mg SC Q12 [facility] Last Admin: 11/10/17 10:20 Dose: 90 mg Hydralazine HCl (Apresoline) 10 mg IVP Q6H PRN PRN Reason: Hypertension Last Admin: 11/08/17 19:45 Dose: 10 mg Folic Acid 1 mg/ Sodium (Chloride) 100.2 mls @ 60 mls/hr IV DAILY [facility] Last Admin: 11/10/17 10:15 Dose: 60 mls/hr Vancomycin/Sodium Chloride (Vancomycin 1 Gm/Ns 200 Ml) 1 gm in 200 mls @ 133.333 mls/hr IVPB Q24H [facility] PRN Reason: Protocol Stop: 11/11/17 18:01 Last Admin: 11/09/17 17:11 Dose: 133.333 mls/hr Phenytoin 100 mg/ Sodium (Chloride) 52 mls @ 104 mls/hr IVPB Q8H [facility] Last Admin: 11/10/17 05:59 Dose: 104 mls/hr Insulin Aspart (Novolog) 0 unit SC Q6 [facility] PRN Reason: Protocol Last Admin: 11/10/17 12:26 Dose: 2 unit Losartan Potassium (Cozaar) 50 mg PO DAILY [facility] Last Admin: 11/10/17 10:14 Dose: 50 mg Metoprolol Succinate (Toprol Xl) 25 mg PO DAILY [facility] Last Admin: 11/10/17 10:20 Dose: 25 mg Mupirocin (Bactroban 2% Nasal) 0.25 gm BROOK BID [facility] Last Admin: 11/10/17 10:14 Dose: 0.25 gm Nitroglycerin (Nitro-Bid 2% Oint) 1 ea TOP Q6 [facility] Last Admin: 11/10/17 12:26 Dose: 1 ea Ondansetron HCl (Zofran Inj) 4 mg IVP Q6H PRN PRN Reason: Nausea/Vomiting Last Admin: 10/30/17 08:51 Dose: 4 mg Oxycodone/Acetaminophen (Percocet 5/325 Mg Tab) 1 tab PO Q6H PRN PRN Reason: Pain, moderate (4-7) Stop: 11/10/17 14:37 Last Admin: 11/09/17 15:03 Dose: 1 tab Oxycodone/Acetaminophen (Percocet 5/325 Mg Tab) 2 tab PO Q4H PRN PRN Reason: Pain, severe (8-10) Stop: 11/12/17 20:43 Last Admin: 11/10/17 10:43 Dose: 2 tab Pantoprazole Sodium (Protonix Inj) 40 mg IVP Q12H [facility] Last Admin: 11/10/17 05:52 Dose: 40 mg - Labs Labs: 11/10/17 08:02 11/10/17 08:02 PT 12.9 SECONDS (9.7-12.2) H 11/09/17 07:40 INR 1.2 11/09/17 07:40 APTT 29 SECONDS (21-34) 10/29/17 06:10 - Head Exam Head Exam: ATRAUMATIC - Eye Exam Eye Exam: Normal appearance - ENT Exam ENT Exam: Mucous Membranes Dry - Respiratory Exam Respiratory Exam: NORMAL BREATHING PATTERN - Cardiovascular Exam Cardiovascular Exam: +S1, +S2 - GI/Abdominal Exam GI & Abdominal Exam: Normal Bowel Sounds Assessment and Plan (1) Anemia Assessment & Plan: multifactorial; hypoproliferative erythroid response likely chronic iron deficiency from chronic slow GI blood loss while on anticoagulation exacerbated by acute faster GI bleeding 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
--- NOTE | 2017-11-10 12:54 | CP.PCM.PN ---
Subjective - Date & Time of Evaluation Date of Evaluation: 11/10/17 Time of Evaluation: 12:00 - Subjective Subjective: Has some foot pain. Objective - Vital Signs/Intake and Output Vital Signs (last 24 hours): Temp Pulse Resp BP Pulse Ox 98.6 F 84 20 172/68 H 97 11/10/17 07:54 11/10/17 12:27 11/10/17 07:54 11/10/17 12:27 11/10/17 07:54 Intake and Output: 11/10/17 11/10/17 06:59 18:59 Intake Total 900 Balance 900 - Medications Medications: Current Medications Al Hydrox/Mg Hydrox/Simethicone (Maalox Plus 30 Ml) 30 ml PO Q6H PRN PRN Reason: Indigestion / Heartburn Last Admin: 10/30/17 17:32 Dose: 30 ml Amlodipine Besylate (Norvasc) 10 mg PO DAILY [facility] Last Admin: 10/20/17 09:57 Dose: Not Given Enoxaparin Sodium (Lovenox) 90 mg SC Q12 [facility] Last Admin: 11/10/17 10:20 Dose: 90 mg Hydralazine HCl (Apresoline) 10 mg IVP Q6H PRN PRN Reason: Hypertension Last Admin: 11/08/17 19:45 Dose: 10 mg Folic Acid 1 mg/ Sodium (Chloride) 100.2 mls @ 60 mls/hr IV DAILY [facility] Last Admin: 11/10/17 10:15 Dose: 60 mls/hr Vancomycin/Sodium Chloride (Vancomycin 1 Gm/Ns 200 Ml) 1 gm in 200 mls @ 133.333 mls/hr IVPB Q24H [facility] PRN Reason: Protocol Stop: 11/11/17 18:01 Last Admin: 11/09/17 17:11 Dose: 133.333 mls/hr Phenytoin 100 mg/ Sodium (Chloride) 52 mls @ 104 mls/hr IVPB Q8H [facility] Last Admin: 11/10/17 05:59 Dose: 104 mls/hr Insulin Aspart (Novolog) 0 unit SC Q6 [facility] PRN Reason: Protocol Last Admin: 11/10/17 12:26 Dose: 2 unit Losartan Potassium (Cozaar) 50 mg PO DAILY [facility] Last Admin: 11/10/17 10:14 Dose: 50 mg Metoprolol Succinate (Toprol Xl) 25 mg PO DAILY [facility] Last Admin: 11/10/17 10:20 Dose: 25 mg Mupirocin (Bactroban 2% Nasal) 0.25 gm BROOK BID [facility] Last Admin: 11/10/17 10:14 Dose: 0.25 gm Nitroglycerin (Nitro-Bid 2% Oint) 1 ea TOP Q6 [facility] Last Admin: 11/10/17 12:26 Dose: 1 ea Ondansetron HCl (Zofran Inj) 4 mg IVP Q6H PRN PRN Reason: Nausea/Vomiting Last Admin: 10/30/17 08:51 Dose: 4 mg Oxycodone/Acetaminophen (Percocet 5/325 Mg Tab) 1 tab PO Q6H PRN PRN Reason: Pain, moderate (4-7) Stop: 11/10/17 14:37 Last Admin: 11/09/17 15:03 Dose: 1 tab Oxycodone/Acetaminophen (Percocet 5/325 Mg Tab) 2 tab PO Q4H PRN PRN Reason: Pain, severe (8-10) Stop: 11/12/17 20:43 Last Admin: 11/10/17 10:43 Dose: 2 tab Pantoprazole Sodium (Protonix Inj) 40 mg IVP Q12H [facility] Last Admin: 11/10/17 05:52 Dose: 40 mg - Labs Labs: 11/10/17 08:02 11/10/17 08:02 PT 12.9 SECONDS (9.7-12.2) H 11/09/17 07:40 INR 1.2 11/09/17 07:40 APTT 29 SECONDS (21-34) 10/29/17 06:10 - Head Exam Head Exam: ATRAUMATIC - Eye Exam Eye Exam: Normal appearance - ENT Exam ENT Exam: Mucous Membranes Dry - Respiratory Exam Respiratory Exam: NORMAL BREATHING PATTERN - Cardiovascular Exam Cardiovascular Exam: +S1, +S2 - GI/Abdominal Exam GI & Abdominal Exam: Normal Bowel Sounds Assessment and Plan (1) Anemia Assessment & Plan: multifactorial; hypoproliferative erythroid response likely chronic iron deficiency from chronic slow GI blood loss while on anticoagulation exacerbated by acute faster GI bleeding 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
[2017-11-10] MEDS: Vancomycin 1 gm/NS 200 ml 1 GM/200 ML BAG IVPB SCH (17:47)
--- NOTE | 2017-11-10 18:13 | CP.PCM.PN ---
Subjective - Date & Time of Evaluation Date of Evaluation: 11/10/17 Time of Evaluation: 18:08 - Subjective Subjective: Podiatry Progress Note- Dr. Bhat 57 y/o female patient seen for evalaution POD# 1 s/p Left hallux amputation. Pt seen resting in bed at time of visit, appears to be in NAD, and more alert. Reports 7/10 pain which has occurred overnight and during physical therapy this morning, not well controlled with analgesics. Denies f/v/c/sob/or cp. Reports no nausea, return of appetite, tolerance of soft food diet, and decreased abdominal pain. No new pedal complaints. Objective - Vital Signs/Intake and Output Vital Signs (last 24 hours): Temp Pulse Resp BP Pulse Ox 99.1 F 85 20 184/66 H 97 11/10/17 16:13 11/10/17 16:13 11/10/17 16:13 11/10/17 16:13 11/10/17 16:13 Intake and Output: 11/10/17 11/10/17 06:59 18:59 Intake Total 900 600 Balance 900 600 - Medications Medications: Current Medications Al Hydrox/Mg Hydrox/Simethicone (Maalox Plus 30 Ml) 30 ml PO Q6H PRN PRN Reason: Indigestion / Heartburn Last Admin: 10/30/17 17:32 Dose: 30 ml Amlodipine Besylate (Norvasc) 10 mg PO DAILY [facility] Last Admin: 10/20/17 09:57 Dose: Not Given Enoxaparin Sodium (Lovenox) 90 mg SC Q12 [facility] Last Admin: 11/10/17 10:20 Dose: 90 mg Hydralazine HCl (Apresoline) 10 mg IVP Q6H PRN PRN Reason: Hypertension Last Admin: 11/08/17 19:45 Dose: 10 mg Folic Acid 1 mg/ Sodium (Chloride) 100.2 mls @ 60 mls/hr IV DAILY [facility] Last Admin: 11/10/17 10:15 Dose: 60 mls/hr Vancomycin/Sodium Chloride (Vancomycin 1 Gm/Ns 200 Ml) 1 gm in 200 mls @ 133.333 mls/hr IVPB Q24H [facility] PRN Reason: Protocol Stop: 11/11/17 18:01 Last Admin: 11/10/17 17:47 Dose: 133.333 mls/hr Insulin Aspart (Novolog) 0 unit SC Q6 [facility] PRN Reason: Protocol Last Admin: 11/10/17 17:43 Dose: 4 unit Losartan Potassium (Cozaar) 50 mg PO DAILY [facility] Last Admin: 11/10/17 10:14 Dose: 50 mg Metoprolol Succinate (Toprol Xl) 25 mg PO DAILY [facility] Last Admin: 11/10/17 10:20 Dose: 25 mg Mupirocin (Bactroban 2% Nasal) 0.25 gm BROOK BID [facility] Last Admin: 11/10/17 17:45 Dose: 0.25 gm Nitroglycerin (Nitro-Bid 2% Oint) 1 ea TOP Q6 [facility] Last Admin: 11/10/17 17:47 Dose: 1 ea Ondansetron HCl (Zofran Inj) 4 mg IVP Q6H PRN PRN Reason: Nausea/Vomiting Last Admin: 10/30/17 08:51 Dose: 4 mg Oxycodone/Acetaminophen (Percocet 5/325 Mg Tab) 2 tab PO Q4H PRN PRN Reason: Pain, severe (8-10) Stop: 11/12/17 20:43 Last Admin: 11/10/17 15:10 Dose: 2 tab Pantoprazole Sodium (Protonix Inj) 40 mg IVP Q12H [facility] Last Admin: 11/10/17 05:52 Dose: 40 mg Phenytoin Sodium (Dilantin) 100 mg PO TID [facility] Last Admin: 11/10/17 17:45 Dose: 100 mg Potassium Chloride (K-Dur 20 Meq Er Tab) 20 meq PO DAILY [facility] Warfarin Sodium (Coumadin) 10 mg PO 1800 [facility] Stop: 11/10/17 18:01 - Labs Labs: 11/10/17 08:02 11/10/17 08:02 PT 12.9 SECONDS (9.7-12.2) H 11/09/17 07:40 INR 1.2 11/09/17 07:40 APTT 29 SECONDS (21-34) 10/29/17 06:10 - Constitutional Appears: Well, Non-toxic, No Acute Distress - Extremities Exam Additional comments: LLE focused: Dressing to left foot clean, dry, and intact. Vasc: PT pulse weakly palpable. DP pulse is non-palpable, skin temp runs cool to cool (proximal to distal) lower extremities cool to cool Ortho: Mild pain with palpation to the left hallux and surrounding periwound, MM is 4/5 in all four compartments consistent with age Neuro: gross sensation intact bilaterally, protective sensation diminished Derm: Left hallux amputation site noted, well approximated, absent signs of strangulation and dehiscence. All sutures are intact. No ischemic or cyanotic presentation noted. Amputation site is warm, with prompt capillary refill time. 2nd digit distal tuft necrotic keratotic lesion noted, stable. No tristian-wound ischemic changes to digit noted. - Neurological Exam Neurological Exam: Alert, Awake, Oriented x3 - Psychiatric Exam Psychiatric exam: Normal Affect, Normal Mood Assessment and Plan - Assessment and Plan (Free Text) Assessment: 57 y.o female1 day s/p left hallux amputation secondary to gangrene and OM Plan: Patient Seen and examined at bedside. Discussed with attending Dr. Bhat, who endorsed the following plan. Chart, labs, and vitals reviewed; afebrile, no leukocytosis -Continue conservative care for toe at this time, dressed surgical site with Xeroform and DSD. -Continue IV abx per ID. - Weightbearing as tolerated. Podiatry will continue to follow pt while inhouse.
[2017-11-10] MEDS ORDERED: Morphine 15 mg SR Tab PO ONE (19:31)
[2017-11-10 20:10] LABS: INR 1.2; PROTHROMBIN TIME 13.8 SECONDS (9.7-12.2)
--- NOTE | 2017-11-10 20:36 | PN ---
DATE: 11/10/2017. SUBJECTIVE: The patient denies chest discomfort. She is currently experiencing pain in the left foot related to her recent surgery. PHYSICAL EXAMINATION: VITAL SIGNS: Blood pressure 171/89, heart rate 89, temperature 98.6, respirations 20. HEENT: Pale conjunctivae. CHEST: Clear. HEART: S1 and S2 regular. EXTREMITIES: Trace leg edema. LABORATORY DATA: Hemoglobin and hematocrit 8.9 and 26.2, platelet count and white count are within normal limits. SMA-7 sodium 142, potassium 3.5, chloride 109, CO2 23, glucose 197, BUN 8, creatinine 0.9. ASSESSMENT: 1. Status post left big toe amputation. 2. Status post mitral and aortic valve replacement. 3. Status post history of small bowel resection for lower gastrointestinal bleeding. 4. Hypokalemia. RECOMMENDATIONS: Continue hydralazine 10 mg IV every 6 hours, Cozaar 60 mg once a day, therapeutic subcutaneous Lovenox at 90 mg twice a day, Toprol XL 25 mg once a day, K-Dur 20 mEq orally once a day. I will administer Coumadin 10 mg p.o. today. Kraig Sheldon MD
--- NOTE | 2017-11-10 21:53 | CARD ---
APPROVED REPORT EKG Measurement Heart [id number] <Conclusion> Normal sinus rhythm Possible Left atrial enlargement Possible Anterolateral infarct, age undetermined Prolonged QT Abnormal ECG
[2017-11-10] MEDS: Potassium Chloride 20 mEq ER Tab PO SCH (21:58)
[2017-11-11] MEDS: (Novolog) Insulin Aspart, Recombinant 100 u/ml 10 ml vial SC SCH ×4 (00:11→21:25)
[2017-11-11] MEDS: Oxycodone/Acetaminophen 5/325 mg Tab PO PRN ×5 (01:57→23:50)
[2017-11-11] MEDS: Nitroglycerin 2% Ointment Foilpak UD TOP SCH ×4 (06:07→23:50)
[2017-11-11 06:22] LABS: BASO # 0.1 K/uL (0.0-0.2); BASO % 1.4 % (0.0-2.0); EOS # 0.3 K/uL (0.0-0.7); HEMOGLOBIN 8.9 g/dL (11.0-16.0); LYMPH # 1.6 K/uL (1.0-4.3); LYMPH % 16.9 % (20.0-40.0); MEAN CELL VOLUME 89.3 fL (81.0-99.0); MEAN CORPUSCULAR HEMOGLOBIN 28.9 pg (27.0-31.0); MEAN CORPUSCULAR HGB CONC 32.3 g/dL (33.0-37.0); MEAN PLATELET VOLUME 7.8 fL (7.2-11.7); MONO % 10.7 % (0.0-10.0); NEUT # 6.3 K/uL (1.8-7.0); NRBC % 0.1 % (0.0-2.0); RBC 3.07 Mil/uL (3.80-5.20); RED CELL DISTRIBUTION WIDTH 17.8 % (11.5-14.5); WHITE BLOOD COUNT 9.2 K/uL (4.8-10.8)
[2017-11-11 06:29] LABS: INR 1.3; PROTHROMBIN TIME 14.3 SECONDS (9.7-12.2)
[2017-11-11 07:50] LABS: ALB/GLOB RATIO 0.8 (1.0-2.1); ALBUMIN 2.8 g/dL (3.5-5.0); ALT/SGPT 12 U/L (9-52); AST/SGOT 36 U/L (14-36); BLOOD UREA NITROGEN 8 mg/dL (7-17); CALCIUM 8.2 mg/dl (8.6-10.4); GFR AFRICAN-AMERICAN > 60; GFR NON-AFRICAN AMERICAN 57
--- NOTE | 2017-11-11 08:55 | CP.PCM.PN ---
Subjective - Date & Time of Evaluation Date of Evaluation: 11/10/17 Time of Evaluation: 19:35 - Subjective Subjective: Pt seen and exained, pt is for coumadin, pt is s/p left fifth toe amputation Objective - Vital Signs/Intake and Output Vital Signs (last 24 hours): Temp Pulse Resp BP Pulse Ox 98.2 F 82 20 173/72 H 95 11/11/17 07:00 11/11/17 07:00 11/11/17 07:00 11/11/17 07:00 11/11/17 07:00 Intake and Output: 11/11/17 11/11/17 06:59 18:59 Intake Total 320 Balance 320 - Medications Medications: Current Medications Al Hydrox/Mg Hydrox/Simethicone (Maalox Plus 30 Ml) 30 ml PO Q6H PRN PRN Reason: Indigestion / Heartburn Last Admin: 10/30/17 17:32 Dose: 30 ml Amlodipine Besylate (Norvasc) 10 mg PO DAILY [facility] Last Admin: 10/20/17 09:57 Dose: Not Given Enoxaparin Sodium (Lovenox) 90 mg SC Q12 [facility] Last Admin: 11/10/17 21:58 Dose: 90 mg Hydralazine HCl (Apresoline) 10 mg IVP Q6H PRN PRN Reason: Hypertension Last Admin: 11/08/17 19:45 Dose: 10 mg Folic Acid 1 mg/ Sodium (Chloride) 100.2 mls @ 60 mls/hr IV DAILY [facility] Last Admin: 11/10/17 10:15 Dose: 60 mls/hr Vancomycin/Sodium Chloride (Vancomycin 1 Gm/Ns 200 Ml) 1 gm in 200 mls @ 133.333 mls/hr IVPB Q24H [facility] PRN Reason: Protocol Stop: 11/11/17 18:01 Last Admin: 11/10/17 17:47 Dose: 133.333 mls/hr Insulin Aspart (Novolog) 0 unit SC Q6 [facility] PRN Reason: Protocol Last Admin: 11/11/17 06:41 Dose: Not Given Losartan Potassium (Cozaar) 100 mg PO DAILY [facility] Metoprolol Succinate (Toprol Xl) 25 mg PO DAILY [facility] Last Admin: 11/10/17 10:20 Dose: 25 mg Mupirocin (Bactroban 2% Nasal) 0.25 gm BROOK BID [facility] Last Admin: 11/10/17 17:45 Dose: 0.25 gm Nitroglycerin (Nitro-Bid 2% Oint) 1 ea TOP Q6 [facility] Last Admin: 11/11/17 06:07 Dose: 1 ea Ondansetron HCl (Zofran Inj) 4 mg IVP Q6H PRN PRN Reason: Nausea/Vomiting Last Admin: 10/30/17 08:51 Dose: 4 mg Oxycodone/Acetaminophen (Percocet 5/325 Mg Tab) 2 tab PO Q4H PRN PRN Reason: Pain, severe (8-10) Stop: 11/12/17 20:43 Last Admin: 11/11/17 06:29 Dose: 2 tab Pantoprazole Sodium (Protonix Inj) 40 mg IVP Q12H [facility] Last Admin: 11/11/17 06:07 Dose: 40 mg Phenytoin Sodium (Dilantin) 100 mg PO TID [facility] Last Admin: 11/10/17 17:45 Dose: 100 mg Potassium Chloride (K-Dur 20 Meq Er Tab) 20 meq PO DAILY [facility] Last Admin: 11/10/17 21:58 Dose: 20 meq - Labs Labs: 11/11/17 06:16 11/11/17 06:16 PT 14.3 SECONDS (9.7-12.2) H 11/11/17 06:16 INR 1.3 11/11/17 06:16 APTT 29 SECONDS (21-34) 10/29/17 06:10 - Constitutional Appears: No Acute Distress - Head Exam Head Exam: ATRAUMATIC, NORMAL INSPECTION, NORMOCEPHALIC - Eye Exam Eye Exam: EOMI, Normal appearance, PERRL Pupil Exam: NORMAL ACCOMODATION, PERRL - Respiratory Exam Respiratory Exam: Clear to Ausculation Bilateral, NORMAL BREATHING PATTERN - Cardiovascular Exam Cardiovascular Exam: REGULAR RHYTHM, +S1, +S2. absent: Murmur - GI/Abdominal Exam GI & Abdominal Exam: Soft, Normal Bowel Sounds. absent: Tenderness - Rectal Exam Rectal Exam: Deferred Assessment and Plan (1) GI bleed Status: Acute (2) Anemia Status: Acute (3) Toe gangrene Status: Acute (4) CAD (coronary artery disease) Status: Chronic (5) Amputation of fifth toe, left, traumatic Status: Acute
--- NOTE | 2017-11-11 09:45 | CP.PCM.PN ---
Subjective - Subjective Subjective: Pt seen and evalauted today Objective - Vital Signs/Intake and Output Vital Signs (last 24 hours): Temp Pulse Resp BP Pulse Ox 98.2 F 82 20 173/72 H 95 11/11/17 07:00 11/11/17 07:00 11/11/17 07:00 11/11/17 07:00 11/11/17 07:00 Intake and Output: 11/11/17 11/11/17 06:59 18:59 Intake Total 320 Balance 320 - Medications Medications: Current Medications Al Hydrox/Mg Hydrox/Simethicone (Maalox Plus 30 Ml) 30 ml PO Q6H PRN PRN Reason: Indigestion / Heartburn Last Admin: 10/30/17 17:32 Dose: 30 ml Amlodipine Besylate (Norvasc) 10 mg PO DAILY [facility] Last Admin: 10/20/17 09:57 Dose: Not Given Enoxaparin Sodium (Lovenox) 90 mg SC Q12 [facility] Last Admin: 11/10/17 21:58 Dose: 90 mg Hydralazine HCl (Apresoline) 10 mg IVP Q6H PRN PRN Reason: Hypertension Last Admin: 11/08/17 19:45 Dose: 10 mg Folic Acid 1 mg/ Sodium (Chloride) 100.2 mls @ 60 mls/hr IV DAILY [facility] Last Admin: 11/10/17 10:15 Dose: 60 mls/hr Vancomycin/Sodium Chloride (Vancomycin 1 Gm/Ns 200 Ml) 1 gm in 200 mls @ 133.333 mls/hr IVPB Q24H [facility] PRN Reason: Protocol Stop: 11/11/17 18:01 Last Admin: 11/10/17 17:47 Dose: 133.333 mls/hr Insulin Aspart (Novolog) 0 unit SC Q6 [facility] PRN Reason: Protocol Last Admin: 11/11/17 06:41 Dose: Not Given Losartan Potassium (Cozaar) 100 mg PO DAILY [facility] Metoprolol Succinate (Toprol Xl) 25 mg PO DAILY [facility] Last Admin: 11/10/17 10:20 Dose: 25 mg Mupirocin (Bactroban 2% Nasal) 0.25 gm BROOK BID [facility] Last Admin: 11/10/17 17:45 Dose: 0.25 gm Nitroglycerin (Nitro-Bid 2% Oint) 1 ea TOP Q6 [facility] Last Admin: 11/11/17 06:07 Dose: 1 ea Ondansetron HCl (Zofran Inj) 4 mg IVP Q6H PRN PRN Reason: Nausea/Vomiting Last Admin: 10/30/17 08:51 Dose: 4 mg Oxycodone/Acetaminophen (Percocet 5/325 Mg Tab) 2 tab PO Q4H PRN PRN Reason: Pain, severe (8-10) Stop: 11/12/17 20:43 Last Admin: 11/11/17 06:29 Dose: 2 tab Pantoprazole Sodium (Protonix Inj) 40 mg IVP Q12H [facility] Last Admin: 11/11/17 06:07 Dose: 40 mg Phenytoin Sodium (Dilantin) 100 mg PO TID [facility] Last Admin: 11/10/17 17:45 Dose: 100 mg Potassium Chloride (K-Dur 20 Meq Er Tab) 20 meq PO DAILY [facility] Last Admin: 11/10/17 21:58 Dose: 20 meq - Labs Labs: 11/11/17 06:16 11/11/17 06:16 PT 14.3 SECONDS (9.7-12.2) H 11/11/17 06:16 INR 1.3 11/11/17 06:16 APTT 29 SECONDS (21-34) 10/29/17 06:10 Assessment and Plan (1) GI bleed Status: Acute (2) Anemia Status: Acute (3) Toe gangrene Status: Acute (4) CAD (coronary artery disease) Status: Chronic (5) Amputation of fifth toe, left, traumatic Status: Acute
[2017-11-11] MEDS: Enoxaparin 100 mg Syringe SC SCH ×2 (09:47→21:27)
[2017-11-11] MEDS: Metoprolol Succinate 25 mg XL Tab PO SCH (09:50)
[2017-11-11] MEDS: Potassium Chloride 20 mEq ER Tab PO SCH (09:50)
[2017-11-11] MEDS ORDERED: Potassium Chloride 20 mEq ER Tab PO ONE ×3 (12:15→13:15)
[2017-11-11] MEDS: Mupirocin 2% Ointment (NASAL) NAS SCH ×2 (12:52→18:27)
[2017-11-11] MEDS ORDERED: Metoprolol Succinate 50 mg XL Tab PO SCH (13:13)
[2017-11-11] MEDS: Vancomycin 1 gm/NS 200 ml 1 GM/200 ML BAG IVPB SCH (18:17)
--- NOTE | 2017-11-11 18:43 | PN ---
DATE: 11/11/2017. SUBJECTIVE: The patient denies any chest pain or shortness of breath. Blood pressure is still elevated. No reported melena. PHYSICAL EXAMINATION: VITAL SIGNS: Blood pressure 174/77, heart rate 81, temperature 98.3, respirations 20. HEENT: Pale conjunctivae. CHEST: Clear. HEART: S1 and S2 regular. Grade 2/6 ejection systolic murmur over left sternal border. ABDOMEN: Soft. EXTREMITIES: Trace leg edema. LABORATORY DATA: Hemoglobin and hematocrit 8.9 and 27.4, white counts and platelet counts are within normal limits. Today SMA-7 is within normal limits except for glucose 137, chloride of 108, anion gap of 9. Today's INR is 1.3. ASSESSMENT: 1. Uncontrolled hypertension. 2. Status post mitral and aortic valve replacement. 3. Status post history of small bowel resection for lower gastrointestinal bleeding. RECOMMENDATIONS: Continue current Cozaar at 100 mg once a day, folic acid 1 mg once a day, hydralazine 10 mg intravenous every 6 hours p.r.n., therapeutic subcutaneous Lovenox at 90 mg twice a day, IV vancomycin 1 gm daily. I will increase Toprol to 50 mg daily and the patient will receive Coumadin 10 mg p.o. today. Kraig Sheldon MD
[2017-11-12] MEDS: (Novolog) Insulin Aspart, Recombinant 100 u/ml 10 ml vial SC SCH ×4 (00:29→17:10)
[2017-11-12 01:17] VITALS: RESP 20
--- NOTE | 2017-11-12 02:02 | OP ---
PROCEDURE DATE: 11/09/2017 PREOPERATIVE DIAGNOSIS: Left foot hallux gangrene with osteomyelitis. POSTOPERATIVE DIAGNOSIS: Left foot hallux gangrene with osteomyelitis. PROCEDURE: Left foot hallux amputation at mPJ, 2. deep bone biopsy 1st metatarsal left foot. resection. SURGEON: Sheldon Bhat DPM CONTRACT ATTORNEY: Cinthia Boyce DPM, PGY1, Angela Dodge DPM, PGY-2 ANESTHESIOLOGIST: Dr. Bowers/Harvey Retana CRNA TYPE OF ANESTHESIA: IV sedation with local. INDICATIONS: The patient is a 57-year-old female with the above diagnosis. The patient has exhausted all conservative treatment at this time and now requires surgical intervention. The patient signed the consent after careful explanation of risks, benefits, complications, and alternatives for surgical procedure. No guarantees were given nor implied. N.p.o. status was confirmed prior to taking the patient to the operating room. PREPARATION: The patient was brought into the operating room and placed on the operating room table in a supine position. A time-out was performed for identification of the correct patient and procedure. After induction of IV sedation, the patient received a total of 20 mL of a 1:1 mixture of 2% lidocaine plain and 0.5% Marcaine plain in a Recio block fashion to the left foot. The left foot was then prepped and draped in normal sterile manner and the procedure begun. No tourniquet was utilized during the procedure. PROCEDURE: Attention was drawn to the left hallux, which was noted to have gangrenous skin changes extending approximately to the level of the metatarsophalangeal joint. It was also noted that the dorsal skin exhibited dusky and necrotic skin changes, extending approximately 1 cm proximal to the metatarsophalangeal joint. At this time, a #15 blade was utilized to make a circumferential incision at the level of the metatarsophalangeal joint, ensuring that a longer plantar skin flap was left intact for skin closure. The decision was made at this time that the dorsal skin at the level of the metatarsophalangeal joint was compromised and poor in quality, and therefore could not be salvaged. The #15 blade incision was carried down to the level of bone circumferentially, extending into the metatarsophalangeal joint. Using a bone clamp to stabilize the hallux, the proximal and distal phalanges were then disarticulated from the foot at the level of the metatarsophalangeal joint. Next, using a sagittal saw, the prominent medial eminence of the first metatarsal head was resected as it was noted to be of poor bone quality. The sagittal saw was then used remove some of 1st the metatarsal head, thereby decreasing the risk of nidus for infection and sending for deep bone biopsy proximal margin. At this time, the wound site was copiously flushed with sterile saline using a bulb syringe. The surgical site was then reapproximated with 3-0 Vicryl and 4-0 Vicryl deep sutures and 4-0 nylon for skin closure. The surgical site was then prepped with Betadine-soaked Adaptic and a dry sterile dressing. POSTOPERATIVE CONDITION: The patient tolerated the anesthesia and procedure well and was escorted to the recovery room with vital signs stable and neurovascular status intact to the left foot. The patient is to be full weightbearing with the use of an assistive device. The patient is to return to floor and Podiatry will continue to follow the patient. Upon discharge, the patient will follow up with Dr. Bhat in his office. Cinthia Boyce DPM [id number]
[2017-11-12] MEDS: Oxycodone/Acetaminophen 5/325 mg Tab PO PRN ×4 (04:09→20:40)
[2017-11-12] MEDS: Nitroglycerin 2% Ointment Foilpak UD TOP SCH ×3 (06:13→17:09)
[2017-11-12 08:12] LABS: INR 2.5
[2017-11-12] MEDS: Metoprolol Succinate 100 mg XL Tab PO SCH (09:19)
[2017-11-12] MEDS: Potassium Chloride 20 mEq ER Tab PO SCH (09:20)
[2017-11-12] MEDS: Mupirocin 2% Ointment (NASAL) NAS SCH ×2 (09:20→17:09)
--- NOTE | 2017-11-12 12:54 | CP.PCM.PN ---
Subjective - Date & Time of Evaluation Date of Evaluation: 11/12/17 Time of Evaluation: 12:54 - Subjective Subjective: Podiatry Progress Note- Dr. Bhat 57 y/o female patient seen for evaluation 3 days s/p left foot hallux amputation. Pt seen resting in bed at time of visit, in NAD. She states her pain comes and goes but has dramatically decreased since the days leading up to her surgery and the day immediately following. States she has not started walking yet with physical therapy. Denies F/C/N/V/CP/SOB. Objective - Vital Signs/Intake and Output Vital Signs (last 24 hours): Temp Pulse Resp BP Pulse Ox 98.3 F 88 20 180/66 H 96 11/12/17 07:40 11/12/17 08:17 11/12/17 07:40 11/12/17 07:40 11/12/17 07:40 Intake and Output: 11/12/17 11/12/17 06:59 18:59 Intake Total 650 Balance 650 - Medications Medications: Current Medications Al Hydrox/Mg Hydrox/Simethicone (Maalox Plus 30 Ml) 30 ml PO Q6H PRN PRN Reason: Indigestion / Heartburn Last Admin: 10/30/17 17:32 Dose: 30 ml Amlodipine Besylate (Norvasc) 10 mg PO DAILY [facility] Last Admin: 10/20/17 09:57 Dose: Not Given Hydralazine HCl (Apresoline) 10 mg IVP Q6H PRN PRN Reason: Hypertension Last Admin: 11/12/17 00:33 Dose: 10 mg Insulin Aspart (Novolog) 0 unit SC Q6 [facility] PRN Reason: Protocol Last Admin: 11/12/17 06:30 Dose: Not Given Losartan Potassium (Cozaar) 100 mg PO DAILY [facility] Last Admin: 11/12/17 09:20 Dose: 100 mg Metoprolol Succinate (Toprol Xl) 100 mg PO DAILY [facility] Last Admin: 11/12/17 09:19 Dose: 100 mg Mupirocin (Bactroban 2% Nasal) 0.25 gm BROOK BID [facility] Last Admin: 11/12/17 09:20 Dose: 0.25 gm Nitroglycerin (Nitro-Bid 2% Oint) 1 ea TOP Q6 [facility] Last Admin: 11/12/17 06:13 Dose: 1 ea Ondansetron HCl (Zofran Inj) 4 mg IVP Q6H PRN PRN Reason: Nausea/Vomiting Last Admin: 10/30/17 08:51 Dose: 4 mg Oxycodone/Acetaminophen (Percocet 5/325 Mg Tab) 2 tab PO Q4H PRN PRN Reason: Pain, severe (8-10) Stop: 11/12/17 20:43 Last Admin: 11/12/17 09:18 Dose: 2 tab Pantoprazole Sodium (Protonix Inj) 40 mg IVP Q12H [facility] Last Admin: 11/12/17 06:13 Dose: 40 mg Phenytoin Sodium (Dilantin) 100 mg PO TID [facility] Last Admin: 11/12/17 09:20 Dose: 100 mg Potassium Chloride (K-Dur 20 Meq Er Tab) 20 meq PO DAILY [facility] Last Admin: 11/12/17 09:20 Dose: 20 meq Warfarin Sodium (Coumadin) 5 mg PO 1800 [facility] Stop: 11/12/17 18:01 - Labs Labs: 11/11/17 06:16 11/11/17 06:16 PT 29.0 SECONDS (9.7-12.2) H D 11/12/17 07:44 INR 2.5 D 11/12/17 07:44 APTT 29 SECONDS (21-34) 10/29/17 06:10 - Constitutional Appears: Well, Non-toxic, No Acute Distress - Extremities Exam Additional comments: LLE focused: Dressing to left foot clean, dry, and intact. Vasc: PT pulse weakly palpable. DP pulse is non-palpable, skin temp runs cool to cool (proximal to distal) Derm: Left hallux amputation site noted with skin edges well approximated, absent signs of strangulation and dehiscence. All sutures are intact. No ischemic or cyanotic presentation noted. Amputation site is warm, with prompt capillary refill time. 2nd digit distal tuft necrotic keratotic lesion noted, stable. No tristian-wound ischemic changes to digit noted. Ortho: Mild pain with palpation to the left hallux and surrounding tristian wound area. MMT is 4/5 in all four compartments Neuro: gross sensation intact B/L; protective sensation diminished - Neurological Exam Neurological Exam: Alert, Awake, Oriented x3 - Psychiatric Exam Psychiatric exam: Normal Affect, Normal Mood Assessment and Plan - Assessment and Plan (Free Text) Assessment: 57 y/o female 3 days s/p left hallux amputation secondary to gangrene and OM Plan: Patient seen and examined at bedside Discussed with attending Dr. Bhat Chart, labs, and vitals reviewed - afebrile, no leukocytosis Surgical site cleansed with saline and dressed with xeroform, DSD Continue IV abx per ID. Pt to be weightbearing as tolerated Podiatry will continue to follow pt while in house
--- NOTE | 2017-11-12 14:28 | CP.PCM.PN ---
Subjective - Date & Time of Evaluation Date of Evaluation: 11/12/17 Time of Evaluation: 09:00 - Subjective Subjective: wound culture + MRSA s/p amp 1st digit left foot rx in progress Objective - Vital Signs/Intake and Output Vital Signs (last 24 hours): Temp Pulse Resp BP Pulse Ox 98.3 F 88 20 180/66 H 96 11/12/17 07:40 11/12/17 08:17 11/12/17 07:40 11/12/17 07:40 11/12/17 07:40 Intake and Output: 11/12/17 11/12/17 06:59 18:59 Intake Total 650 Balance 650 - Medications Medications: Current Medications Al Hydrox/Mg Hydrox/Simethicone (Maalox Plus 30 Ml) 30 ml PO Q6H PRN PRN Reason: Indigestion / Heartburn Last Admin: 10/30/17 17:32 Dose: 30 ml Amlodipine Besylate (Norvasc) 10 mg PO DAILY [facility] Last Admin: 10/20/17 09:57 Dose: Not Given Hydralazine HCl (Apresoline) 10 mg IVP Q6H PRN PRN Reason: Hypertension Last Admin: 11/12/17 00:33 Dose: 10 mg Insulin Aspart (Novolog) 0 unit SC Q6 [facility] PRN Reason: Protocol Last Admin: 11/12/17 12:47 Dose: 4 unit Losartan Potassium (Cozaar) 100 mg PO DAILY [facility] Last Admin: 11/12/17 09:20 Dose: 100 mg Metoprolol Succinate (Toprol Xl) 100 mg PO DAILY [facility] Last Admin: 11/12/17 09:19 Dose: 100 mg Mupirocin (Bactroban 2% Nasal) 0.25 gm BROOK BID [facility] Last Admin: 11/12/17 09:20 Dose: 0.25 gm Nitroglycerin (Nitro-Bid 2% Oint) 1 ea TOP Q6 [facility] Last Admin: 11/12/17 12:47 Dose: 1 ea Ondansetron HCl (Zofran Inj) 4 mg IVP Q6H PRN PRN Reason: Nausea/Vomiting Last Admin: 10/30/17 08:51 Dose: 4 mg Oxycodone/Acetaminophen (Percocet 5/325 Mg Tab) 2 tab PO Q4H PRN PRN Reason: Pain, severe (8-10) Stop: 11/12/17 20:43 Last Admin: 11/12/17 13:57 Dose: 2 tab Pantoprazole Sodium (Protonix Inj) 40 mg IVP Q12H [facility] Last Admin: 11/12/17 06:13 Dose: 40 mg Phenytoin Sodium (Dilantin) 100 mg PO TID [facility] Last Admin: 11/12/17 14:01 Dose: 100 mg Potassium Chloride (K-Dur 20 Meq Er Tab) 20 meq PO DAILY [facility] Last Admin: 11/12/17 09:20 Dose: 20 meq Warfarin Sodium (Coumadin) 5 mg PO 1800 [facility] Stop: 11/12/17 18:01 - Labs Labs: 11/11/17 06:16 11/11/17 06:16 PT 29.0 SECONDS (9.7-12.2) H D 11/12/17 07:44 INR 2.5 D 11/12/17 07:44 APTT 29 SECONDS (21-34) 10/29/17 06:10 - Constitutional Appears: Non-toxic, Chronically Ill - Head Exam Head Exam: NORMOCEPHALIC - Eye Exam Eye Exam: PERRL - ENT Exam ENT Exam: Mucous Membranes Dry - Neck Exam Neck Exam: absent: Lymphadenopathy - Respiratory Exam Respiratory Exam: Decreased Breath Sounds - Cardiovascular Exam Cardiovascular Exam: REGULAR RHYTHM - GI/Abdominal Exam GI & Abdominal Exam: Distended - Rectal Exam Rectal Exam: Deferred - Exam Exam: NORMAL INSPECTION Assessment and Plan (1) Anemia Status: Acute (2) Toe gangrene Status: Acute (3) CAD (coronary artery disease) Status: Chronic (4) Dyslipidemia Status: Chronic (5) PVD (peripheral vascular disease) Status: Chronic (6) Uncontrolled diabetes mellitus Status: Chronic
--- NOTE | 2017-11-12 20:22 | PN ---
DATE: 11/12/2017 SUBJECTIVE: The patient denied any chest pain. No rectal bleeding. No dizziness. PHYSICAL EXAMINATION: VITAL SIGNS: Blood pressure 180/66, heart rate 90, temperature 98.3, respirations 20. HEENT: [place] conjunctivae. CHEST: Clear. HEART: S1 and S2, regular. A grade 2/6 ejection systolic murmur over the left sternal border. EXTREMITIES: Trace leg edema. LABORATORY DATA: Today's INR is 2.5. ASSESSMENT: 1. Status post mitral and aortic valve replacement. 2. Status post distal small bowel resection for lower gastrointestinal bleeding. 3. Peripheral vascular disease, status post left big toe amputation. 4. Uncontrolled hypertension. RECOMMENDATIONS: Continue Cozaar at 100 mg once a day, K-Dur 20 mEq once a day, Toprol-XL at 100 mg once a day. Combivent will be administered at 5 mg today. In the meantime, I recommend continuing subcutaneous Lovenox therapy in a therapeutic regimen until an INR of 3 is reached. Kraig Sheldon MD
--- NOTE | 2017-11-12 21:34 | CP.PCM.PN ---
Subjective - Date & Time of Evaluation Date of Evaluation: 11/12/17 Time of Evaluation: 20:00 - Subjective Subjective: Has some foot pain. Objective - Vital Signs/Intake and Output Vital Signs (last 24 hours): Temp Pulse Resp BP Pulse Ox 98.2 F 76 20 154/73 H 100 11/12/17 15:58 11/12/17 16:17 11/12/17 15:58 11/12/17 15:58 11/12/17 15:58 Intake and Output: 11/12/17 11/13/17 18:59 06:59 Intake Total 400 Balance 400 - Medications Medications: Current Medications Al Hydrox/Mg Hydrox/Simethicone (Maalox Plus 30 Ml) 30 ml PO Q6H PRN PRN Reason: Indigestion / Heartburn Last Admin: 10/30/17 17:32 Dose: 30 ml Amlodipine Besylate (Norvasc) 10 mg PO DAILY [facility] Last Admin: 10/20/17 09:57 Dose: Not Given Hydralazine HCl (Apresoline) 10 mg IVP Q6H PRN PRN Reason: Hypertension Last Admin: 11/12/17 00:33 Dose: 10 mg Insulin Aspart (Novolog) 0 unit SC Q6 [facility] PRN Reason: Protocol Last Admin: 11/12/17 17:10 Dose: Not Given Losartan Potassium (Cozaar) 100 mg PO DAILY [facility] Last Admin: 11/12/17 09:20 Dose: 100 mg Metoprolol Succinate (Toprol Xl) 100 mg PO DAILY [facility] Last Admin: 11/12/17 09:19 Dose: 100 mg Mupirocin (Bactroban 2% Nasal) 0.25 gm BROOK BID [facility] Last Admin: 11/12/17 17:09 Dose: 0.25 gm Nitroglycerin (Nitro-Bid 2% Oint) 1 ea TOP Q6 [facility] Last Admin: 11/12/17 17:09 Dose: 1 ea Ondansetron HCl (Zofran Inj) 4 mg IVP Q6H PRN PRN Reason: Nausea/Vomiting Last Admin: 10/30/17 08:51 Dose: 4 mg Pantoprazole Sodium (Protonix Inj) 40 mg IVP Q12H [facility] Last Admin: 11/12/17 17:09 Dose: 40 mg Phenytoin Sodium (Dilantin) 100 mg PO TID [facility] Last Admin: 11/12/17 17:09 Dose: 100 mg Potassium Chloride (K-Dur 20 Meq Er Tab) 20 meq PO DAILY [facility] Last Admin: 11/12/17 09:20 Dose: 20 meq - Labs Labs: 11/11/17 06:16 11/11/17 06:16 PT 29.0 SECONDS (9.7-12.2) H D 11/12/17 07:44 INR 2.5 D 11/12/17 07:44 APTT 29 SECONDS (21-34) 10/29/17 06:10 - Head Exam Head Exam: ATRAUMATIC - Eye Exam Eye Exam: Normal appearance - ENT Exam ENT Exam: Mucous Membranes Dry - Respiratory Exam Respiratory Exam: NORMAL BREATHING PATTERN - Cardiovascular Exam Cardiovascular Exam: +S1, +S2 - GI/Abdominal Exam GI & Abdominal Exam: Normal Bowel Sounds Assessment and Plan (1) Anemia Assessment & Plan: multifactorial; hypoproliferative erythroid response likely chronic iron deficiency from chronic slow GI blood loss while on anticoagulation exacerbated by acute faster GI bleeding 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
[2017-11-13] MEDS: Nitroglycerin 2% Ointment Foilpak UD TOP SCH ×5 (00:13→23:47)
[2017-11-13] MEDS: (Novolog) Insulin Aspart, Recombinant 100 u/ml 10 ml vial SC SCH ×5 (00:25→21:29)
--- NOTE | 2017-11-13 00:47 | CP.PCM.PN ---
Subjective - Date & Time of Evaluation Date of Evaluation: 11/12/17 Time of Evaluation: 19:00 - Subjective Subjective: Pt seen and examined, wound culture + MRSA s/p amp 1st digit left foot rx in progress Objective - Vital Signs/Intake and Output Vital Signs (last 24 hours): Temp Pulse Resp BP Pulse Ox 98.2 F 76 20 154/73 H 100 11/12/17 15:58 11/12/17 16:17 11/12/17 15:58 11/12/17 15:58 11/12/17 15:58 Intake and Output: 11/12/17 11/13/17 18:59 06:59 Intake Total 400 Balance 400 - Medications Medications: Current Medications Al Hydrox/Mg Hydrox/Simethicone (Maalox Plus 30 Ml) 30 ml PO Q6H PRN PRN Reason: Indigestion / Heartburn Last Admin: 10/30/17 17:32 Dose: 30 ml Amlodipine Besylate (Norvasc) 10 mg PO DAILY [facility] Last Admin: 10/20/17 09:57 Dose: Not Given Epoetin Joaquin (Procrit) 20,000 unit SC ONCE ONE Stop: 11/13/17 10:01 Hydralazine HCl (Apresoline) 10 mg IVP Q6H PRN PRN Reason: Hypertension Last Admin: 11/12/17 00:33 Dose: 10 mg Insulin Aspart (Novolog) 0 unit SC Q6 [facility] PRN Reason: Protocol Last Admin: 11/13/17 00:25 Dose: Not Given Losartan Potassium (Cozaar) 100 mg PO DAILY [facility] Last Admin: 11/12/17 09:20 Dose: 100 mg Metoprolol Succinate (Toprol Xl) 100 mg PO DAILY [facility] Last Admin: 11/12/17 09:19 Dose: 100 mg Mupirocin (Bactroban 2% Nasal) 0.25 gm BROOK BID [facility] Last Admin: 11/12/17 17:09 Dose: 0.25 gm Nitroglycerin (Nitro-Bid 2% Oint) 1 ea TOP Q6 [facility] Last Admin: 11/13/17 00:13 Dose: 1 ea Ondansetron HCl (Zofran Inj) 4 mg IVP Q6H PRN PRN Reason: Nausea/Vomiting Last Admin: 10/30/17 08:51 Dose: 4 mg Pantoprazole Sodium (Protonix Inj) 40 mg IVP Q12H [facility] Last Admin: 11/12/17 17:09 Dose: 40 mg Phenytoin Sodium (Dilantin) 100 mg PO TID [facility] Last Admin: 11/12/17 17:09 Dose: 100 mg Potassium Chloride (K-Dur 20 Meq Er Tab) 20 meq PO DAILY [facility] Last Admin: 11/12/17 09:20 Dose: 20 meq - Labs Labs: 11/11/17 06:16 11/11/17 06:16 PT 29.0 SECONDS (9.7-12.2) H D 11/12/17 07:44 INR 2.5 D 11/12/17 07:44 APTT 29 SECONDS (21-34) 10/29/17 06:10 Assessment and Plan (1) GI bleed Status: Acute (2) Anemia Status: Acute (3) Toe gangrene Status: Acute (4) CAD (coronary artery disease) Status: Chronic (5) Amputation of fifth toe, left, traumatic Status: Acute
[2017-11-13 07:29] LABS: INR 3.8; PROTHROMBIN TIME 45.1 SECONDS (9.7-12.2)
[2017-11-13] MEDS: Metoprolol Succinate 100 mg XL Tab PO SCH (09:51)
[2017-11-13] MEDS: Mupirocin 2% Ointment (NASAL) NAS SCH ×2 (09:51→17:07)
[2017-11-13] MEDS: Potassium Chloride 20 mEq ER Tab PO SCH (09:51)
[2017-11-13] MEDS ORDERED: Epoetin Alfa Dialysis 20000 UNIT/ML Inj SC ONE (10:00)
[2017-11-13] MEDS: Oxycodone/Acetaminophen 5/325 mg Tab PO PRN ×2 (11:52→21:39)
--- NOTE | 2017-11-13 20:50 | PN ---
DATE: SUBJECTIVE: The patient denies any chest pain or black tarry stools. PHYSICAL EXAMINATION: VITAL SIGNS: Blood pressure 158/74, heart rate 85, respirations 20, temperature 98.3. HEENT: [place] conjunctivae. CHEST: Clear. HEART: S1 and S2 regular. EXTREMITIES: Trace leg edema. LABORATORY DATA: Today's blood sugars are 183, 151, 116 respectively. Today's INR is 3.8, PT 45.1. ASSESSMENT: 1. Mild coagulopathy. 2. Status post mitral aortic valve replacement. 3. Hypertension. 4. Peripheral vascular disease, status post left big toe amputation. 5. Status post distal small bowel resection for lower GI bleeding. RECOMMENDATIONS: No further Coumadin will be given today. Lovenox was discontinued. Continue Cozaar, hydralazine, Norvasc, Dilantin, and K-Dur. I will obtain a followup INR in a.m. Kraig Sheldon MD
--- NOTE | 2017-11-13 23:01 | CP.PCM.PN ---
Subjective - Date & Time of Evaluation Date of Evaluation: 11/13/17 Time of Evaluation: 20:00 - Subjective Subjective: Has foot pain. Objective - Vital Signs/Intake and Output Vital Signs (last 24 hours): Temp Pulse Resp BP Pulse Ox 98.4 F 75 20 154/68 H 99 11/13/17 15:56 11/13/17 15:56 11/13/17 15:56 11/13/17 15:56 11/13/17 15:56 Intake and Output: 11/13/17 11/14/17 18:59 06:59 Intake Total 400 Balance 400 - Medications Medications: Current Medications Amlodipine Besylate (Norvasc) 10 mg PO DAILY [facility] Last Admin: 10/20/17 09:57 Dose: Not Given Hydralazine HCl (Apresoline) 10 mg IVP Q6H PRN PRN Reason: Hypertension Last Admin: 11/12/17 00:33 Dose: 10 mg Insulin Aspart (Novolog) 0 unit SC ACHS [facility] PRN Reason: Protocol Last Admin: 11/13/17 21:29 Dose: Not Given Losartan Potassium (Cozaar) 100 mg PO DAILY [facility] Last Admin: 11/13/17 09:51 Dose: 100 mg Metoprolol Succinate (Toprol Xl) 100 mg PO DAILY [facility] Last Admin: 11/13/17 09:51 Dose: 100 mg Mupirocin (Bactroban 2% Nasal) 0.25 gm BROOK BID [facility] Last Admin: 11/13/17 17:07 Dose: 0.25 gm Nitroglycerin (Nitro-Bid 2% Oint) 1 ea TOP Q6 [facility] Last Admin: 11/13/17 17:07 Dose: 1 ea Ondansetron HCl (Zofran Inj) 4 mg IVP Q6H PRN PRN Reason: Nausea/Vomiting Last Admin: 10/30/17 08:51 Dose: 4 mg Oxycodone/Acetaminophen (Percocet 5/325 Mg Tab) 1 tab PO Q6H PRN PRN Reason: Pain, moderate (4-7) Stop: 11/16/17 10:18 Last Admin: 11/13/17 21:39 Dose: 1 tab Pantoprazole Sodium (Protonix Inj) 40 mg IVP Q12H [facility] Last Admin: 11/13/17 17:07 Dose: 40 mg Phenytoin Sodium (Dilantin) 100 mg PO TID [facility] Last Admin: 11/13/17 17:07 Dose: 100 mg Potassium Chloride (K-Dur 20 Meq Er Tab) 20 meq PO DAILY [facility] Last Admin: 11/13/17 09:51 Dose: 20 meq - Labs Labs: 11/11/17 06:16 11/11/17 06:16 PT 45.1 SECONDS (9.7-12.2) H* D 11/13/17 06:46 INR 3.8 D 11/13/17 06:46 APTT 29 SECONDS (21-34) 10/29/17 06:10 - Head Exam Head Exam: ATRAUMATIC - Eye Exam Eye Exam: Normal appearance - ENT Exam ENT Exam: Mucous Membranes Dry - Respiratory Exam Respiratory Exam: NORMAL BREATHING PATTERN - Cardiovascular Exam Cardiovascular Exam: +S1, +S2 - GI/Abdominal Exam GI & Abdominal Exam: Normal Bowel Sounds Assessment and Plan (1) Anemia Assessment & Plan: multifactorial; hypoproliferative erythroid response likely chronic iron deficiency from chronic slow GI blood loss while on anticoagulation; s/p IV iron supplementation 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
--- NOTE | 2017-11-13 23:19 | CP.PCM.PN ---
Subjective - Date & Time of Evaluation Date of Evaluation: 11/13/17 Time of Evaluation: 17:00 - Subjective Subjective: Pt seen and examined at bedside today s/p amputation of big toe she is on Physical therapy on coumadin Objective - Vital Signs/Intake and Output Vital Signs (last 24 hours): Temp Pulse Resp BP Pulse Ox 98.4 F 75 20 154/68 H 99 11/13/17 15:56 11/13/17 15:56 11/13/17 15:56 11/13/17 15:56 11/13/17 15:56 Intake and Output: 11/13/17 11/14/17 18:59 06:59 Intake Total 400 Balance 400 - Medications Medications: Current Medications Amlodipine Besylate (Norvasc) 10 mg PO DAILY [facility] Last Admin: 10/20/17 09:57 Dose: Not Given Hydralazine HCl (Apresoline) 10 mg IVP Q6H PRN PRN Reason: Hypertension Last Admin: 11/12/17 00:33 Dose: 10 mg Insulin Aspart (Novolog) 0 unit SC ACHS [facility] PRN Reason: Protocol Last Admin: 11/13/17 21:29 Dose: Not Given Losartan Potassium (Cozaar) 100 mg PO DAILY [facility] Last Admin: 11/13/17 09:51 Dose: 100 mg Metoprolol Succinate (Toprol Xl) 100 mg PO DAILY [facility] Last Admin: 11/13/17 09:51 Dose: 100 mg Mupirocin (Bactroban 2% Nasal) 0.25 gm BROOK BID [facility] Last Admin: 11/13/17 17:07 Dose: 0.25 gm Nitroglycerin (Nitro-Bid 2% Oint) 1 ea TOP Q6 [facility] Last Admin: 11/13/17 17:07 Dose: 1 ea Ondansetron HCl (Zofran Inj) 4 mg IVP Q6H PRN PRN Reason: Nausea/Vomiting Last Admin: 10/30/17 08:51 Dose: 4 mg Oxycodone/Acetaminophen (Percocet 5/325 Mg Tab) 1 tab PO Q6H PRN PRN Reason: Pain, moderate (4-7) Stop: 11/16/17 10:18 Last Admin: 11/13/17 21:39 Dose: 1 tab Pantoprazole Sodium (Protonix Inj) 40 mg IVP Q12H [facility] Last Admin: 11/13/17 17:07 Dose: 40 mg Phenytoin Sodium (Dilantin) 100 mg PO TID [facility] Last Admin: 11/13/17 17:07 Dose: 100 mg Potassium Chloride (K-Dur 20 Meq Er Tab) 20 meq PO DAILY [facility] Last Admin: 11/13/17 09:51 Dose: 20 meq - Labs Labs: 11/11/17 06:16 11/11/17 06:16 PT 45.1 SECONDS (9.7-12.2) H* D 11/13/17 06:46 INR 3.8 D 11/13/17 06:46 APTT 29 SECONDS (21-34) 10/29/17 06:10 - Constitutional Appears: No Acute Distress - Head Exam Head Exam: ATRAUMATIC, NORMAL INSPECTION, NORMOCEPHALIC - Eye Exam Eye Exam: EOMI, Normal appearance, PERRL Pupil Exam: NORMAL ACCOMODATION, PERRL - Respiratory Exam Respiratory Exam: Clear to Ausculation Bilateral, NORMAL BREATHING PATTERN - Cardiovascular Exam Cardiovascular Exam: REGULAR RHYTHM, +S1, +S2. absent: Murmur - GI/Abdominal Exam GI & Abdominal Exam: Soft, Normal Bowel Sounds. absent: Tenderness Assessment and Plan (1) GI bleed Status: Acute (2) Anemia Status: Acute (3) Toe gangrene Status: Acute (4) CAD (coronary artery disease) Status: Chronic (5) Amputation of fifth toe, left, traumatic Status: Acute
[2017-11-14] MEDS: Nitroglycerin 2% Ointment Foilpak UD TOP SCH ×2 (05:28→12:18)
[2017-11-14] MEDS: Oxycodone/Acetaminophen 5/325 mg Tab PO PRN ×2 (06:23→13:07)
[2017-11-14 07:09] LABS: BASO % 0.3 % (0.0-2.0); EOS # 0.2 K/uL (0.0-0.7); EOS % 3.1 % (0.0-4.0); HEMOGLOBIN 9.1 g/dL (11.0-16.0); LYMPH # 1.1 K/uL (1.0-4.3); LYMPH % 15.4 % (20.0-40.0); MEAN CELL VOLUME 88.1 fL (81.0-99.0); MEAN CORPUSCULAR HEMOGLOBIN 28.9 pg (27.0-31.0); MEAN CORPUSCULAR HGB CONC 32.8 g/dL (33.0-37.0); MEAN PLATELET VOLUME 7.9 fL (7.2-11.7); MONO # 0.7 K/uL (0.0-0.8); MONO % 9.6 % (0.0-10.0); NEUT # 4.9 K/uL (1.8-7.0); NEUT % 71.6 % (50.0-75.0); NRBC % 0.1 % (0.0-2.0); RBC 3.16 Mil/uL (3.80-5.20); RED CELL DISTRIBUTION WIDTH 16.8 % (11.5-14.5); WHITE BLOOD COUNT 6.9 K/uL (4.8-10.8)
[2017-11-14 07:39] VITALS: O2SAT 96
[2017-11-14 08:15] LABS: ALB/GLOB RATIO 0.7 (1.0-2.1); ALBUMIN 2.8 g/dL (3.5-5.0); ALT/SGPT 11 U/L (9-52); AST/SGOT 31 U/L (14-36); BLOOD UREA NITROGEN 10 mg/dL (7-17); CALCIUM 8.1 mg/dl (8.6-10.4); GFR AFRICAN-AMERICAN > 60; GFR NON-AFRICAN AMERICAN 57
[2017-11-14 08:24] LABS: INR 4.2
[2017-11-14 08:28] LABS: PROTHROMBIN TIME 50.3 SECONDS (9.7-12.2)
[2017-11-14] MEDS: (Novolog) Insulin Aspart, Recombinant 100 u/ml 10 ml vial SC SCH ×2 (08:44→12:18)
[2017-11-14] MEDS ORDERED: Phytonadione 10 mg/ml Inj (Adult) SC ONE (09:00)
[2017-11-14] MEDS: Metoprolol Succinate 100 mg XL Tab PO SCH (10:34)
[2017-11-14] MEDS: Potassium Chloride 20 mEq ER Tab PO SCH (10:34)
[2017-11-14] MEDS: Mupirocin 2% Ointment (NASAL) NAS SCH (10:34)
--- NOTE | 2017-11-14 11:17 | CP.PCM.PN ---
Subjective - Date & Time of Evaluation Date of Evaluation: 11/14/17 Time of Evaluation: 11:17 - Subjective Subjective: Podiatry Progress Note- Dr. Bhat 57 year old female patient seen for evaluation 5 days s/p left foot hallux amputation. Pt seen resting in bed at time of visit, in NAD. She admits she has some pain to the surgical site. Denies F/C/N/V/CP/SOB. Objective - Vital Signs/Intake and Output Vital Signs (last 24 hours): Temp Pulse Resp BP Pulse Ox 99.5 F 87 20 127/64 96 11/14/17 07:10 11/14/17 07:10 11/14/17 07:10 11/14/17 07:10 11/14/17 07:10 - Medications Medications: Current Medications Amlodipine Besylate (Norvasc) 10 mg PO DAILY [facility] Last Admin: 10/20/17 09:57 Dose: Not Given Hydralazine HCl (Apresoline) 10 mg IVP Q6H PRN PRN Reason: Hypertension Last Admin: 11/14/17 06:20 Dose: 10 mg Insulin Aspart (Novolog) 0 unit SC ACHS [facility] PRN Reason: Protocol Last Admin: 11/14/17 08:44 Dose: 4 unit Losartan Potassium (Cozaar) 100 mg PO DAILY [facility] Last Admin: 11/14/17 10:34 Dose: 100 mg Metoprolol Succinate (Toprol Xl) 100 mg PO DAILY [facility] Last Admin: 11/14/17 10:34 Dose: 100 mg Mupirocin (Bactroban 2% Nasal) 0.25 gm BROOK BID [facility] Last Admin: 11/14/17 10:34 Dose: 0.25 gm Nitroglycerin (Nitro-Bid 2% Oint) 1 ea TOP Q6 [facility] Last Admin: 11/14/17 05:28 Dose: 1 ea Ondansetron HCl (Zofran Inj) 4 mg IVP Q6H PRN PRN Reason: Nausea/Vomiting Last Admin: 10/30/17 08:51 Dose: 4 mg Oxycodone/Acetaminophen (Percocet 5/325 Mg Tab) 1 tab PO Q6H PRN PRN Reason: Pain, moderate (4-7) Stop: 11/16/17 10:18 Last Admin: 11/14/17 06:23 Dose: 1 tab Pantoprazole Sodium (Protonix Inj) 40 mg IVP Q12H [facility] Last Admin: 11/14/17 05:28 Dose: 40 mg Phenytoin Sodium (Dilantin) 100 mg PO TID [facility] Last Admin: 11/14/17 10:34 Dose: 100 mg Potassium Chloride (K-Dur 20 Meq Er Tab) 20 meq PO DAILY [facility] Last Admin: 11/14/17 10:34 Dose: 20 meq - Labs Labs: 11/14/17 06:54 11/14/17 06:54 PT 50.3 SECONDS (9.7-12.2) H* D 11/14/17 08:13 INR 4.2 11/14/17 08:13 APTT 29 SECONDS (21-34) 10/29/17 06:10 - Constitutional Appears: Well, Non-toxic, No Acute Distress - Extremities Exam Additional comments: Left lower extremity focused: Dressing to left foot clean, dry, and intact. Vasc: PT pulse weakly palpable. DP pulse is non-palpable, skin temp runs cool to cool (proximal to distal) Derm: Left hallux amputation site noted with skin edges well approximated, absent signs of strangulation and dehiscence. All sutures are intact. No ischemic or cyanotic presentation noted. Amputation site is warm, with prompt capillary refill time. 2nd digit distal tuft necrotic keratotic lesion noted, stable. No tristian-wound ischemic changes to digit noted. Ortho: Mild pain with palpation to the left hallux and surrounding tristian wound area. 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 Bhat Chart, labs, and vitals reviewed - afebrile, WBC 6.9 Surgical site cleansed with saline and dressed with xeroform, DSD Continue IV abx per ID. Pt to be weightbearing as tolerated Patient stable for discharge from podiatry standpoint Podiatry will continue to follow pt while in house
--- NOTE | 2017-11-14 13:03 | CP.PCM.PN ---
Subjective - Date & Time of Evaluation Date of Evaluation: 11/14/17 Time of Evaluation: 12:10 - Subjective Subjective: Has some pain at amputation site seen eating. Objective - Vital Signs/Intake and Output Vital Signs (last 24 hours): Temp Pulse Resp BP Pulse Ox 99.5 F 87 20 127/64 96 11/14/17 07:10 11/14/17 07:10 11/14/17 07:10 11/14/17 07:10 11/14/17 07:10 - Medications Medications: Current Medications Amlodipine Besylate (Norvasc) 10 mg PO DAILY [facility] Last Admin: 10/20/17 09:57 Dose: Not Given Hydralazine HCl (Apresoline) 10 mg IVP Q6H PRN PRN Reason: Hypertension Last Admin: 11/14/17 12:23 Dose: 10 mg Insulin Aspart (Novolog) 0 unit SC ACHS [facility] PRN Reason: Protocol Last Admin: 11/14/17 12:18 Dose: 2 unit Losartan Potassium (Cozaar) 100 mg PO DAILY [facility] Last Admin: 11/14/17 10:34 Dose: 100 mg Metoprolol Succinate (Toprol Xl) 100 mg PO DAILY [facility] Last Admin: 11/14/17 10:34 Dose: 100 mg Mupirocin (Bactroban 2% Nasal) 0.25 gm BROOK BID [facility] Last Admin: 11/14/17 10:34 Dose: 0.25 gm Nitroglycerin (Nitro-Bid 2% Oint) 1 ea TOP Q6 [facility] Last Admin: 11/14/17 12:18 Dose: 1 ea Ondansetron HCl (Zofran Inj) 4 mg IVP Q6H PRN PRN Reason: Nausea/Vomiting Last Admin: 10/30/17 08:51 Dose: 4 mg Oxycodone/Acetaminophen (Percocet 5/325 Mg Tab) 1 tab PO Q6H PRN PRN Reason: Pain, moderate (4-7) Stop: 11/16/17 10:18 Last Admin: 11/14/17 06:23 Dose: 1 tab Pantoprazole Sodium (Protonix Inj) 40 mg IVP Q12H [facility] Last Admin: 11/14/17 05:28 Dose: 40 mg Phenytoin Sodium (Dilantin) 100 mg PO TID [facility] Last Admin: 11/14/17 10:34 Dose: 100 mg Potassium Chloride (K-Dur 20 Meq Er Tab) 20 meq PO DAILY [facility] Last Admin: 11/14/17 10:34 Dose: 20 meq - Labs Labs: 11/14/17 06:54 11/14/17 06:54 PT 50.3 SECONDS (9.7-12.2) H* D 11/14/17 08:13 INR 4.2 11/14/17 08:13 APTT 29 SECONDS (21-34) 10/29/17 06:10 - Head Exam Head Exam: ATRAUMATIC - Eye Exam Eye Exam: Normal appearance - ENT Exam ENT Exam: Mucous Membranes Dry - Respiratory Exam Respiratory Exam: NORMAL BREATHING PATTERN - Cardiovascular Exam Cardiovascular Exam: +S1, +S2 - GI/Abdominal Exam GI & Abdominal Exam: Normal Bowel Sounds Assessment and Plan (1) Anemia Assessment & Plan: multifactorial; hypoproliferative erythroid response likely chronic iron deficiency from chronic slow GI blood loss while on anticoagulation; s/p IV iron supplementation 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
[2017-11-14] MEDS ORDERED: Vancomycin 1 gm/NS 200 ml 1 GM/200 ML BAG IVPB SCH (14:00)
[2017-11-14] MEDS ORDERED: Pneumococcal 23-Valent Vaccine IM ONE (14:22)
--- NOTE | 2017-11-14 14:37 | CP.PCM.PN ---
Subjective - Date & Time of Evaluation Date of Evaluation: 11/14/17 Time of Evaluation: 14:25 - Subjective Subjective: PATIENT IS ADMITTED FOR TOE GANGRENE AND UNCONTROL DM PATIENT AAO X 3 DENIES CHEST PAIN/ SOB NO SIGN OF DISTRESS NOTED Objective - Vital Signs/Intake and Output Vital Signs (last 24 hours): Temp Pulse Resp BP Pulse Ox 99.5 F 85 20 117/67 96 11/14/17 07:10 11/14/17 13:41 11/14/17 07:10 11/14/17 13:41 11/14/17 07:10 - Medications Medications: Current Medications Amlodipine Besylate (Norvasc) 10 mg PO DAILY [facility] Last Admin: 10/20/17 09:57 Dose: Not Given Hydralazine HCl (Apresoline) 10 mg IVP Q6H PRN PRN Reason: Hypertension Last Admin: 11/14/17 12:23 Dose: 10 mg Vancomycin/Sodium Chloride (Vancomycin 1 Gm/Ns 200 Ml) 1 gm in 200 mls @ 133 mls/hr IVPB Q24H [facility] PRN Reason: Protocol Stop: 11/19/17 14:01 Last Admin: 11/14/17 14:02 Dose: 133 mls/hr Insulin Aspart (Novolog) 0 unit SC ACHS [facility] PRN Reason: Protocol Last Admin: 11/14/17 12:18 Dose: 2 unit Losartan Potassium (Cozaar) 100 mg PO DAILY [facility] Last Admin: 11/14/17 10:34 Dose: 100 mg Metoprolol Succinate (Toprol Xl) 100 mg PO DAILY [facility] Last Admin: 11/14/17 10:34 Dose: 100 mg Mupirocin (Bactroban 2% Nasal) 0.25 gm BROOK BID [facility] Last Admin: 11/14/17 10:34 Dose: 0.25 gm Nitroglycerin (Nitro-Bid 2% Oint) 1 ea TOP Q6 [facility] Last Admin: 11/14/17 12:18 Dose: 1 ea Ondansetron HCl (Zofran Inj) 4 mg IVP Q6H PRN PRN Reason: Nausea/Vomiting Last Admin: 10/30/17 08:51 Dose: 4 mg Oxycodone/Acetaminophen (Percocet 5/325 Mg Tab) 1 tab PO Q6H PRN PRN Reason: Pain, moderate (4-7) Stop: 11/16/17 10:18 Last Admin: 11/14/17 13:07 Dose: 1 tab Pantoprazole Sodium (Protonix Inj) 40 mg IVP Q12H [facility] Last Admin: 11/14/17 05:28 Dose: 40 mg Phenytoin Sodium (Dilantin) 100 mg PO TID [facility] Last Admin: 11/14/17 13:03 Dose: 100 mg Pneumococcal Polyvalent Vaccine (Pneumovax 23 Vaccine) 0.5 ml IM .ONCE ONE Stop: 11/14/17 14:23 Potassium Chloride (K-Dur 20 Meq Er Tab) 20 meq PO DAILY [facility] Last Admin: 11/14/17 10:34 Dose: 20 meq - Labs Labs: 11/14/17 06:54 11/14/17 06:54 PT 50.3 SECONDS (9.7-12.2) H* D 11/14/17 08:13 INR 4.2 11/14/17 08:13 APTT 29 SECONDS (21-34) 10/29/17 06:10 Assessment and Plan - Assessment and Plan (Free Text) Assessment: PATIENT WAS SEEN AND EXAMINED AT THE BEDSIDE LUNG SOUND CLEAR JR AFEBRILE/ BLOOD WORK WNL LATEST INR IS 4.2 AND PATIENT IS ON COUMADIN THERAPY PLACE UNDER THE SERVICE AF DR WALDEN AT [facility]---CALL FOR ADMITTING ORDERS CONTINUE ALL YOUR HOME MEDICATION ORDER NEW PRESCRIPTION GIVEN VANCO 1G IVPB FOR [address] MOSES (INFECTIOUS DISEASE) BLOOD WORK PER DR SOTELO AND FACILITY PROTOCOL FOR ANTICOAGULANT THERAPY FOOT CARE PER CONDITIONER TUMBLER AND FACILITY PROTOCOL Surgical site cleansed with saline and dressed with xeroform, DSD
[2017-11-14 16:10] VITALS: BP 156/72; PULSE 84; TEMP 99.1
--- NOTE | 2017-11-14 16:30 | CP.PCM.PN ---
Subjective - Date & Time of Evaluation Date of Evaluation: 11/14/17 Time of Evaluation: 18:00 - Subjective Subjective: PATIENT IS ADMITTED FOR TOE GANGRENE AND UNCONTROL DM PATIENT AAO X 3 DENIES CHEST PAIN/ SOB NO SIGN OF DISTRESS NOTED Objective - Vital Signs/Intake and Output Vital Signs (last 24 hours): Temp Pulse Resp BP Pulse Ox 99.1 F 84 20 156/72 H 96 11/14/17 15:00 11/14/17 15:00 11/14/17 15:00 11/14/17 15:00 11/14/17 15:00 Intake and Output: 11/14/17 11/14/17 06:59 18:59 Intake Total 630 Balance 630 - Medications Medications: Current Medications Amlodipine Besylate (Norvasc) 10 mg PO DAILY [facility] Last Admin: 10/20/17 09:57 Dose: Not Given Hydralazine HCl (Apresoline) 10 mg IVP Q6H PRN PRN Reason: Hypertension Last Admin: 11/14/17 12:23 Dose: 10 mg Vancomycin/Sodium Chloride (Vancomycin 1 Gm/Ns 200 Ml) 1 gm in 200 mls @ 133 mls/hr IVPB Q24H [facility] PRN Reason: Protocol Stop: 11/19/17 14:01 Last Admin: 11/14/17 14:02 Dose: 133 mls/hr Insulin Aspart (Novolog) 0 unit SC ACHS [facility] PRN Reason: Protocol Last Admin: 11/14/17 12:18 Dose: 2 unit Losartan Potassium (Cozaar) 100 mg PO DAILY [facility] Last Admin: 11/14/17 10:34 Dose: 100 mg Metoprolol Succinate (Toprol Xl) 100 mg PO DAILY [facility] Last Admin: 11/14/17 10:34 Dose: 100 mg Mupirocin (Bactroban 2% Nasal) 0.25 gm BROOK BID [facility] Last Admin: 11/14/17 10:34 Dose: 0.25 gm Nitroglycerin (Nitro-Bid 2% Oint) 1 ea TOP Q6 [facility] Last Admin: 11/14/17 12:18 Dose: 1 ea Ondansetron HCl (Zofran Inj) 4 mg IVP Q6H PRN PRN Reason: Nausea/Vomiting Last Admin: 10/30/17 08:51 Dose: 4 mg Oxycodone/Acetaminophen (Percocet 5/325 Mg Tab) 1 tab PO Q6H PRN PRN Reason: Pain, moderate (4-7) Stop: 11/16/17 10:18 Last Admin: 11/14/17 13:07 Dose: 1 tab Pantoprazole Sodium (Protonix Inj) 40 mg IVP Q12H [facility] Last Admin: 11/14/17 05:28 Dose: 40 mg Phenytoin Sodium (Dilantin) 100 mg PO TID [facility] Last Admin: 11/14/17 13:03 Dose: 100 mg Potassium Chloride (K-Dur 20 Meq Er Tab) 20 meq PO DAILY [facility] Last Admin: 11/14/17 10:34 Dose: 20 meq - Labs Labs: 11/14/17 06:54 11/14/17 06:54 PT 50.3 SECONDS (9.7-12.2) H* D 11/14/17 08:13 INR 4.2 11/14/17 08:13 APTT 29 SECONDS (21-34) 10/29/17 06:10 Assessment and Plan (1) GI bleed Status: Acute (2) Anemia Status: Acute (3) Toe gangrene Status: Acute (4) CAD (coronary artery disease) Status: Chronic (5) Amputation of fifth toe, left, traumatic Status: Acute
--- NOTE | 2017-11-14 17:48 | PN ---
DATE: 11/14/2017 SUBJECTIVE: The patient denies rectal bleeding. No chest pain. PHYSICAL EXAMINATION: VITAL SIGNS: Blood pressure 127/64, heart rate 87, temperature 99.3, respirations 20. HEENT: Pale conjunctivae. CHEST: Clear. HEART: S1 and S2 regular. Grade 3/6 ejection systolic murmur over the left sternal border. EXTREMITIES: Trace leg edema. LABORATORY DATA: Today's INR is 4.2. Today's hemoglobin and hematocrit 9.1 and 27.8, white count and platelet count are within normal limits. Today SMA-7 is within normal limits except for glucose of 199. ASSESSMENT: 1. Iatrogenic coagulopathy. 2. Status post distal small bowel resection for lower gastrointestinal bleed. 3. Uncontrolled diabetes mellitus. 4. Hypertension. 5. Status post mitral and aortic valve replacement in 2008. 6. Status post left big toe amputation a few days ago. RECOMMENDATIONS: Continue Hydralazine 10 mg intravenously every 6 hours p.r.n. Continue Cozaar at 100 mg once a day, Dilantin 100 mg t.i.d., Norvasc at 10 mg once a day, Toprol-XL at 100 mg once a day, K-Dur 20 mEq once a day. I did order vitamin K 10 mg to be given subcutaneously, which was given already at around 9 a.m. and follow up INR in a.m. Kraig Sheldon MD
== END 2017-11-14 17:35 | DRG 617 ==
LOC: C.ER 12:04 → C.9E 14:31 → C.3T 15:11 → C.5S 10-18 14:47 → C.9I 10-18 19:19 → C.5S 11-01 21:50
PROVIDERS: ADMIT Internal Medicine; ATTEND Internal Medicine
PROC: 0DB68ZX Excision of Stomach, Via Natural or Artificial Opening Endoscopic, Diagnostic (ICD-10-PCS; 2017-10-18)
PROC: 30233N1 Transfusion of Nonautologous Red Blood Cells into Peripheral Vein, Percutaneous Approach (ICD-10-PCS; 2017-10-21)
PROC: 0DJD8ZZ Inspection of Lower Intestinal Tract, Via Natural or Artificial Opening Endoscopic (ICD-10-PCS; 2017-10-23)
PROC: 0DJ08ZZ Inspection of Upper Intestinal Tract, Via Natural or Artificial Opening Endoscopic (ICD-10-PCS; 2017-10-23)
PROC: 0WJJ0ZZ Inspection of Pelvic Cavity, Open Approach (ICD-10-PCS; 2017-10-24)
PROC: 0DB80ZZ Excision of Small Intestine, Open Approach (ICD-10-PCS; 2017-10-24)
PROC: 0QBP0ZX Excision of Left Metatarsal, Open Approach, Diagnostic (ICD-10-PCS; 2017-11-09)
PROC: 0QTP0ZZ Resection of Left Metatarsal, Open Approach (ICD-10-PCS; 2017-11-09)
PROC: 0Y6Q0Z0 Detachment at Left 1st Toe, Complete, Open Approach (ICD-10-PCS; principal; 2017-11-09 10:30)
DX: E11.69 Type 2 diabetes mellitus with other specified complication (principal); M86.9 Osteomyelitis, unspecified; E11.52 Type 2 diabetes mellitus with diabetic peripheral angiopathy with gangrene; I96 Gangrene, not elsewhere classified; D62 Acute posthemorrhagic anemia; K92.2 Gastrointestinal hemorrhage, unspecified; Q43.8 Other specified congenital malformations of intestine; E11.65 Type 2 diabetes mellitus with hyperglycemia; Z79.4 Long term (current) use of insulin; E78.00 Pure hypercholesterolemia, unspecified; E86.1 Hypovolemia; E87.6 Hypokalemia; G40.909 Epilepsy, unspecified, not intractable, without status epilepticus; I10 Essential (primary) hypertension; I25.10 Atherosclerotic heart disease of native coronary artery without angina pectoris; F17.210 Nicotine dependence, cigarettes, uncomplicated; J44.9 Chronic obstructive pulmonary disease, unspecified; K21.9 Gastro-esophageal reflux disease without esophagitis; K29.80 Duodenitis without bleeding; K57.30 Diverticulosis of large intestine without perforation or abscess without bleeding; B95.62 Methicillin resistant Staphylococcus aureus infection as the cause of diseases classified elsewhere; Z79.01 Long term (current) use of anticoagulants; Z95.2 Presence of prosthetic heart valve; K25.9 Gastric ulcer, unspecified as acute or chronic, without hemorrhage or perforation; K26.9 Duodenal ulcer, unspecified as acute or chronic, without hemorrhage or perforation; D63.8 Anemia in other chronic diseases classified elsewhere; K29.70 Gastritis, unspecified, without bleeding; D25.9 Leiomyoma of uterus, unspecified

== ENCOUNTER 2018-01-07 08:04 | Inpatient (IN) | payer MEDICARE ==
--- NOTE | 2018-01-07 09:10 | C.PDOC ---
History Of Present Illness 57 y/o female, w/ PMhx of diabetes ( insulin), HTN, anemia, hyperlipidemia, presents to the ER for evaluation of abnormal labs showing low hemoglobin levels , upon referral of Dr. Lane. Patient is complaining of having dizziness and generalized weakness which has been present since yesterday. Patient reports that she feels dizzy while standing. Otherwise, patient denies having CP and SOB. Time Seen by Provider: 01/07/18 08:46 Chief Complaint (Nursing): Abnormal Labs History Per: Patient History/Exam Limitations: no limitations Onset/Duration Of Symptoms: Days Current Symptoms Are (Timing): Still Present Severity: Moderate Past Medical History Reviewed: Historical Data, Nursing Documentation, Vital Signs Vital Signs: Last Vital Signs Temp 98.9 F 01/08/18 17:05 Pulse 88 01/08/18 17:05 Resp 18 01/08/18 17:05 BP 131/70 01/08/18 17:05 Pulse Ox 100 01/08/18 16:00 - Medical History PMH: Anemia, Asthma, Gastritis, HTN, Hypercholesterolemia, Seizures Denies: Chronic Kidney Disease Other Surgeries: Hx of surgeries - [facility] Procedures DETACHMENT AT LEFT 1ST TOE, COMPLETE, OPEN APPROACH (10/14/17) EXCISION OF LEFT METATARSAL, OPEN APPROACH, DIAGNOSTIC (10/14/17) EXCISION OF SMALL INTESTINE, OPEN APPROACH (10/14/17) EXCISION OF STOMACH, ENDO, DIAGN (10/14/17) INSPECTION OF LOWER INTESTINAL TRACT, ENDO (10/14/17) INSPECTION OF PELVIC CAVITY, OPEN APPROACH (10/14/17) INSPECTION OF UPPER INTESTINAL TRACT, ENDO (10/14/17) RESECTION OF LEFT METATARSAL, OPEN APPROACH (10/14/17) TRANSFUSE NONAUT RED BLOOD CELLS IN PERIPH VEIN, PERC (10/14/17) Family History: States: No Known Family Hx - Social History Hx Alcohol Use: No Hx Substance Use: No - Immunization History Hx Tetanus Toxoid Vaccination: No Hx Influenza Vaccination: No Hx Pneumococcal Vaccination: No Review Of Systems Except As Marked, All Systems Reviewed And Found Negative. Constitutional: Negative for: Fever, Chills Neurological: Positive for: Dizziness Physical Exam - Physical Exam Appears: Non-toxic, No Acute Distress Skin: Normal Color, Warm, Dry Head: Atraumatic, Normacephalic Eye(s): bilateral: Normal Inspection Nose: Normal Oral Mucosa: Moist Neck: Supple Chest: Symmetrical Cardiovascular: Rhythm Regular Respiratory: Normal Breath Sounds, No Rales, No Rhonchi, No Wheezing Gastrointestinal/Abdominal: Normal Exam, Soft, No Tenderness, No Guarding, No Rebound Rectal: Melena (black stool) Extremity: Normal ROM, Other (left great toe amputation) Neurological/Psych: Oriented x3, Normal Speech ED Course And Treatment - Laboratory Results Result Diagrams: 01/08/18 07:09 01/07/18 09:51 O2 Sat by Pulse Oximetry: 100 (RA) Pulse Ox Interpretation: Normal Medical Decision Making Medical Decision Making: Impression: GI Bleed, Symptomatic Anemia Plan: --Labs --IV Fluids --Blood Transfusion Disposition - Disposition Disposition: HOSPITALIZED Disposition Time: 10:59 Condition: FAIR - Clinical Impression Clinical Impression: Symptomatic anemia, GI bleed - Scribe Statement The provider has reviewed the documentation as recorded by the Luis Mancera Provider Attestation: All medical record entries made by the Felaibisaac were at my direction and personally dictated by me. I have reviewed the chart and agree that the record accurately reflects my personal performance of the history, physical exam, medical decision making, and the department course for this patient. I have also personally directed, reviewed, and agree with the discharge instructions and disposition.
[2018-01-07] MEDS ORDERED: Sodium Chloride 0.9% 1,000 ML IV ONE (09:14)
[2018-01-07 09:56] LABS: BASO # 0.1 K/uL (0.0-0.2); EOS # 0.1 K/uL (0.0-0.7); EOS % 0.9 % (0.0-4.0); LYMPH # 2.2 K/uL (1.0-4.3); MEAN CELL VOLUME 85.4 fL (81.0-99.0); MEAN CORPUSCULAR HGB CONC 32.8 g/dL (33.0-37.0); MEAN PLATELET VOLUME 7.9 fL (7.2-11.7); MONO # 0.4 K/uL (0.0-0.8); NEUT # 5.2 K/uL (1.8-7.0); NEUT % 65.1 % (50.0-75.0); RBC 1.98 Mil/uL (3.80-5.20); RED CELL DISTRIBUTION WIDTH 16.3 % (11.5-14.5)
[2018-01-07 10:03] LABS: HEMOGLOBIN 5.5 g/dL (11.0-16.0)
[2018-01-07 10:07] LABS: INR 6.1
[2018-01-07 10:10] LABS: ALBUMIN 3.6 g/dL (3.5-5.0); CALCIUM 8.2 mg/dl (8.6-10.4)
[2018-01-07 10:12] LABS: PROTHROMBIN TIME 66.7 SECONDS (9.7-12.2)
[2018-01-07] MEDS ORDERED: Potassium Chloride 10 mEq ER Tab PO STA ×2 (12:42→14:20)
--- NOTE | 2018-01-07 15:50 | CP.PCM.HP ---
Past Patient History - Past Medical History & Family History Past Medical History?: Yes - Past Social History Smoking Status: Light Smoker < 10 Cigarettes Daily - CARDIAC Hx Hypercholesterolemia: Yes Hx Hypertension: Yes - PULMONARY Hx Asthma: Yes - NEUROLOGICAL Hx Seizures: Yes - HEENT Hx HEENT Problems: No - RENAL Hx Chronic Kidney Disease: No - ENDOCRINE/METABOLIC Hx Diabetes Mellitus Type 2: Yes - HEMATOLOGICAL/ONCOLOGICAL Hx Anemia: Yes - INTEGUMENTARY Hx Dermatological Problems: No - MUSCULOSKELETAL/RHEUMATOLOGICAL Hx Falls: No - GASTROINTESTINAL Hx Gastritis: Yes - GENITOURINARY/GYNECOLOGICAL Hx Genitourinary Disorders: No - PSYCHIATRIC Hx Substance Use: No - SURGICAL HISTORY Hx Valve Replacement: Yes Other/Comment: left leg stent placement, lt foot 1st digit amputation, small bowel sx - ANESTHESIA Hx Anesthesia: Yes Hx Anesthesia Reactions: No Meds Allergies/Adverse Reactions: Allergies Allergy/AdvReac Type Severity Reaction Status Date / Time No Known Allergies Allergy Verified 10/14/17 12:13 Physical Exam - Constitutional Appears: Well - Head Exam Head Exam: ATRAUMATIC, NORMAL INSPECTION, NORMOCEPHALIC - Eye Exam Eye Exam: EOMI, Normal appearance, PERRL Pupil Exam: NORMAL ACCOMODATION, PERRL - ENT Exam ENT Exam: Mucous Membranes Moist, Normal Exam - Neck Exam Neck exam: Positive for: Normal Inspection - Respiratory Exam Respiratory Exam: Decreased Breath Sounds - Cardiovascular Exam Cardiovascular Exam: REGULAR RHYTHM, +S1, +S2 - GI/Abdominal Exam GI & Abdominal Exam: Diminished Bowel Sounds, Soft - Rectal Exam Rectal Exam: Deferred Results - Vital Signs Recent Vital Signs: Last Vital Signs Temp 99.8 F H 01/07/18 15:26 Pulse 96 H 01/07/18 14:17 Resp 20 01/07/18 14:17 BP 120/65 01/07/18 14:17 Pulse Ox 95 01/07/18 12:09 - Labs Result Diagrams: 01/07/18 09:51 01/07/18 09:51 Labs: Laboratory Results - last 24 hr 01/07/18 01/07/18 01/07/18 09:51 09:51 09:51 WBC 8.0 RBC 1.98 L Hgb 5.5 L* D Hct 16.9 L MCV 85.4 D MCH 28.0 MCHC 32.8 L RDW 16.3 H Plt Count 310 MPV 7.9 Neut % (Auto) 65.1 Lymph % (Auto) 28.0 [place] % (Auto) 5.0 Eos % (Auto) 0.9 Baso % (Auto) 1.0 Neut # (Auto) 5.2 Lymph # (Auto) 2.2 [place] # (Auto) 0.4 Eos # (Auto) 0.1 Baso # (Auto) 0.1 PT 66.7 H* INR 6.1 APTT 55 H Sodium Potassium Chloride Carbon Dioxide Anion Gap BUN Creatinine Est GFR ( Amer) Est GFR (Non-Af Amer) POC Glucose (mg/dL) Random Glucose Calcium Total Bilirubin AST ALT Alkaline Phosphatase Total Protein Albumin Globulin Albumin/Globulin Ratio Stool Occult Blood Positive H Blood Type Antibody Screen 01/07/18 01/07/18 01/07/18 09:51 09:51 12:44 WBC RBC Hgb Hct MCV MCH MCHC RDW Plt Count MPV Neut % (Auto) Lymph % (Auto) [place] % (Auto) Eos % (Auto) Baso % (Auto) Neut # (Auto) Lymph # (Auto) [place] # (Auto) Eos # (Auto) Baso # (Auto) PT INR APTT Sodium 138 Potassium 3.2 L Chloride 103 Carbon Dioxide 23 Anion Gap 15 BUN 28 H Creatinine 1.2 Est GFR ( Amer) 56 Est GFR (Non-Af Amer) 46 POC Glucose (mg/dL) 204 H Random Glucose 202 H Calcium 8.2 L Total Bilirubin 0.5 AST 30 ALT 18 Alkaline Phosphatase 178 H D Total Protein 7.2 Albumin 3.6 Globulin 3.7 Albumin/Globulin Ratio 1.0 Stool Occult Blood Blood Type A POSITIVE Antibody Screen Negative
--- NOTE | 2018-01-07 21:52 | CP.PCM.CON ---
History of Present Illness - History of Present Illness History of Present Illness: 57 year old female with a history of tobacco abuse, DM, PVD with vascular intervention and left big toe amputation, mechanical mitral and aortic valve replacement on coumadin, chronic anemia from GI blood loss s/p resection of distal small bowel, chronic valvular hemolysis, admitted with symptomatic anemia. The patient reports to being told to come to the hospital after being found to have a low hgb with Dr. Lane. She denies abnormal bleeding and bruising. She is s/p 1U PRBC and reports to feeling better. Past medical history: tobacco abuse, DM, PVC, mechanical mitral and aortic valve replacement, toe gangrene s/p amputation Past surgical history: Mitral/aortic valve replacement, left big toe amputation Family history: Denies hematologic and oncologic problems Social history: Tobacco abuse Allergies: NKA All remaining review of systems including HEENT, cardiovascular, respiratory, gastrointestinal, genitourinary, musculoskeletal, dermatologic, neurologic, and psychiatric are negative unless mentioned in the HPI. Past Patient History - Past Medical History & Family History Past Medical History?: Yes - Past Social History Smoking Status: Light Smoker < 10 Cigarettes Daily - CARDIAC Hx Hypercholesterolemia: Yes Hx Hypertension: Yes - PULMONARY Hx Asthma: Yes - NEUROLOGICAL Hx Seizures: Yes - HEENT Hx HEENT Problems: No Other/Comment: wears glasses - RENAL Hx Chronic Kidney Disease: No - ENDOCRINE/METABOLIC Hx Diabetes Mellitus Type 2: Yes - HEMATOLOGICAL/ONCOLOGICAL Hx Anemia: Yes Hx Blood Transfusions: Yes Hx Blood Transfusion Reaction: No - INTEGUMENTARY Hx Dermatological Problems: No - MUSCULOSKELETAL/RHEUMATOLOGICAL Hx Falls: No - GASTROINTESTINAL Hx Gastritis: Yes - GENITOURINARY/GYNECOLOGICAL Hx Genitourinary Disorders: No - PSYCHIATRIC Hx Substance Use: No - SURGICAL HISTORY Hx Amputation: Yes (left big toe amputation 09/2017) Hx Valve Replacement: Yes Other/Comment: left leg stent placement, lt foot 1st digit amputation, small bowel sx - ANESTHESIA Hx Anesthesia: Yes Hx Anesthesia Reactions: No Meds Allergies/Adverse Reactions: Allergies Allergy/AdvReac Type Severity Reaction Status Date / Time No Known Allergies Allergy Verified 10/14/17 12:13 - Medications Medications: Current Medications Amlodipine Besylate (Norvasc) 10 mg PO DAILY [facility] Folic Acid (Folic Acid) 1 mg PO DAILY [facility] Home Med (Insulin Degludec/Liraglutide [Xultophy 100 Unit-3.6mg/Ml Pen]) 22 unit SQ DAILY [facility] Hydrochlorothiazide (Hydrodiuril) 25 mg PO DAILY [facility] Ceftriaxone Sodium 1 gm/ (Sodium Chloride) 100 mls @ 100 mls/hr IVPB DAILY [facility] PRN Reason: Protocol Last Admin: 01/07/18 17:44 Dose: 100 mls/hr Losartan Potassium (Cozaar) 100 mg PO DAILY [facility] Metoprolol Succinate (Toprol Xl) 50 mg PO DAILY [facility] Pantoprazole Sodium (Protonix Ec Tab) 40 mg PO DAILY [facility] Phenytoin Sodium (Dilantin) 100 mg PO TID [facility] Last Admin: 01/07/18 17:44 Dose: 100 mg Potassium Chloride (K-Dur 20 Meq Er Tab) 20 meq PO DAILY [facility] Rosuvastatin Calcium (Crestor) 40 mg PO HS [facility] Last Admin: 01/07/18 21:40 Dose: 40 mg Theophylline (Jose C-24) 300 mg PO DAILY [facility] Physical Exam - Head Exam Head Exam: ATRAUMATIC - Eye Exam Eye Exam: Normal appearance - ENT Exam ENT Exam: Mucous Membranes Dry - Respiratory Exam Respiratory Exam: NORMAL BREATHING PATTERN - Cardiovascular Exam Cardiovascular Exam: +S1, +S2 - GI/Abdominal Exam GI & Abdominal Exam: Normal Bowel Sounds - Extremities Exam Additional comments: left foot dressing - Neurological Exam Neurological exam: Oriented x3 - Psychiatric Exam Psychiatric exam: Normal Affect, Normal Mood - Skin Skin Exam: Warm Results - Vital Signs Recent Vital Signs: Last Vital Signs Temp 98.7 F 01/07/18 17:26 Pulse 76 01/07/18 17:26 Resp 20 01/07/18 17:26 BP 135/73 01/07/18 17:26 Pulse Ox 94 L 01/07/18 17:14 - Labs Result Diagrams: 01/07/18 09:51 01/07/18 09:51 Labs: Laboratory Results - last 24 hr 01/07/18 01/07/18 01/07/18 09:51 09:51 09:51 WBC 8.0 RBC 1.98 L Hgb 5.5 L* D Hct 16.9 L MCV 85.4 D MCH 28.0 MCHC 32.8 L RDW 16.3 H Plt Count 310 MPV 7.9 Neut % (Auto) 65.1 Lymph % (Auto) 28.0 [place] % (Auto) 5.0 Eos % (Auto) 0.9 Baso % (Auto) 1.0 Neut # (Auto) 5.2 Lymph # (Auto) 2.2 [place] # (Auto) 0.4 Eos # (Auto) 0.1 Baso # (Auto) 0.1 PT 66.7 H* INR 6.1 APTT 55 H Sodium Potassium Chloride Carbon Dioxide Anion Gap BUN Creatinine Est GFR ( Amer) Est GFR (Non-Af Amer) POC Glucose (mg/dL) Random Glucose Calcium Total Bilirubin AST ALT Alkaline Phosphatase Total Protein Albumin Globulin Albumin/Globulin Ratio Stool Occult Blood Positive H Blood Type Antibody Screen 01/07/18 01/07/18 01/07/18 09:51 09:51 12:44 WBC RBC Hgb Hct MCV MCH MCHC RDW Plt Count MPV Neut % (Auto) Lymph % (Auto) [place] % (Auto) Eos % (Auto) Baso % (Auto) Neut # (Auto) Lymph # (Auto) [place] # (Auto) Eos # (Auto) Baso # (Auto) PT INR APTT Sodium 138 Potassium 3.2 L Chloride 103 Carbon Dioxide 23 Anion Gap 15 BUN 28 H Creatinine 1.2 Est GFR ( Amer) 56 Est GFR (Non-Af Amer) 46 POC Glucose (mg/dL) 204 H Random Glucose 202 H Calcium 8.2 L Total Bilirubin 0.5 AST 30 ALT 18 Alkaline Phosphatase 178 H D Total Protein 7.2 Albumin 3.6 Globulin 3.7 Albumin/Globulin Ratio 1.0 Stool Occult Blood Blood Type A POSITIVE Antibody Screen Negative 01/07/18 01/07/18 17:06 21:23 WBC RBC Hgb Hct MCV MCH MCHC RDW Plt Count MPV Neut % (Auto) Lymph % (Auto) [place] % (Auto) Eos % (Auto) Baso % (Auto) Neut # (Auto) Lymph # (Auto) [place] # (Auto) Eos # (Auto) Baso # (Auto) PT INR APTT Sodium Potassium Chloride Carbon Dioxide Anion Gap BUN Creatinine Est GFR ( Amer) Est GFR (Non-Af Amer) POC Glucose (mg/dL) 183 H 264 H Random Glucose Calcium Total Bilirubin AST ALT Alkaline Phosphatase Total Protein Albumin Globulin Albumin/Globulin Ratio Stool Occult Blood Blood Type Antibody Screen Assessment & Plan (1) Anemia Assessment and Plan: multifactorial prior GI blood loss; check FOBT prior valvular hemolysis; will check haptoglobin will check iron, b12, folate stores s/p 1U PRBC unable to transfuse further as pt does not have good IV access for vascular access in AM followed by 1U PRBC will consider procrit Status: Acute Priority: High (2) Coagulopathy Assessment and Plan: secondary to coumadin supratherapeutic INR; coumadin on hold goal INR 2.5 - 3.5 Thank you for this interesting consult. Status: Acute
[2018-01-08 07:25] LABS: BASO % 0.5 % (0.0-2.0); EOS # 0.2 K/uL (0.0-0.7); EOS % 3.7 % (0.0-4.0); HEMOGLOBIN 6.8 g/dL (11.0-16.0); LYMPH # 1.3 K/uL (1.0-4.3); LYMPH % 22.8 % (20.0-40.0); MEAN CELL VOLUME 85.6 fL (81.0-99.0); MEAN CORPUSCULAR HEMOGLOBIN 28.4 pg (27.0-31.0); MEAN CORPUSCULAR HGB CONC 33.2 g/dL (33.0-37.0); MEAN PLATELET VOLUME 7.7 fL (7.2-11.7); MONO # 0.4 K/uL (0.0-0.8); MONO % 7.2 % (0.0-10.0); NEUT # 3.6 K/uL (1.8-7.0); NEUT % 65.8 % (50.0-75.0); RBC 2.4 Mil/uL (3.80-5.20); WHITE BLOOD COUNT 5.5 K/uL (4.8-10.8)
[2018-01-08 08:59] LABS: FOLATE > 20.0 ng/mL
--- NOTE | 2018-01-08 09:52 | US ---
Renal ultrasound History: Abnormal potassium levels. Comparison: None available. Technique: Real-time sonography was performed through the kidneys. Findings: Right kidney: 10.5 x 5.4 x 5.5 centimeters. Increased echogenicity of the renal parenchymal cortex suggestive for medical renal disease. No calculi or hydronephrosis. Left kidney: 9.2 x 6.1 x 5.7 centimeters. Increased echogenicity of the renal parenchymal cortex suggestive for medical renal disease. No calculi or hydronephrosis. Visualized aorta is preserved. Limited evaluation of the urinary bladder appears grossly preserved. Impression: Increased echogenicity of the bilateral renal parenchymal cortices suggestive for medical renal disease. Clinical correlation.
[2018-01-08] MEDS: Metoprolol Succinate 50 mg XL Tab PO SCH (10:25)
[2018-01-08] MEDS: Theophylline 300mg ER 24 hrs Cap PO SCH (10:25)
[2018-01-08] MEDS: Potassium Chloride 20 mEq ER Tab PO SCH (10:27)
[2018-01-08] MEDS: Pantoprazole 40 mg EC Tab PO SCH (10:27)
--- NOTE | 2018-01-08 11:57 | RAD ---
HISTORY: PICC Insertion COMPARISON: Comparison chest 10/21/2027 . Comparison also made with CTA chest dated 10/28/2019 18 a.m. FINDINGS: In situ right-sided PICC line with tip in the SVC. LUNGS: Minor bibasilar atelectasis with what may represent some linear scarring left medial lung base. . PLEURA: No significant pleural effusion identified, no pneumothorax apparent. CARDIOVASCULAR: Sternotomy wires and prostatic valves unchanged OSSEOUS STRUCTURES: No significant abnormalities. VISUALIZED UPPER ABDOMEN: Normal. OTHER FINDINGS: None. IMPRESSION: In situ right-sided PICC line as described. Minor bibasilar atelectasis with what may represent some linear scarring left medial lung base Cardiomegaly.
[2018-01-08] MEDS: (Novolin R) Insulin Human Regular 100 units/ml vial SC SCH ×3 (12:13→22:18)
[2018-01-08 14:30] LABS: INR 4.3
[2018-01-08 14:34] LABS: PROTHROMBIN TIME 47.7 SECONDS (9.7-12.2)
--- NOTE | 2018-01-08 20:51 | CP.PCM.PN ---
Subjective - Date & Time of Evaluation Date of Evaluation: 01/08/18 Time of Evaluation: 08:20 - Subjective Subjective: clinically same Objective - Vital Signs/Intake and Output Vital Signs (last 24 hours): Temp Pulse Resp BP Pulse Ox 98.9 F 88 18 131/70 100 01/08/18 17:05 01/08/18 17:05 01/08/18 17:05 01/08/18 17:05 01/08/18 18:08 Intake and Output: 01/08/18 01/09/18 18:59 06:59 Intake Total 940 Balance 940 - Medications Medications: Current Medications Amlodipine Besylate (Norvasc) 10 mg PO DAILY [facility] Last Admin: 01/08/18 10:26 Dose: 10 mg Folic Acid (Folic Acid) 1 mg PO DAILY [facility] Last Admin: 01/08/18 10:25 Dose: 1 mg Home Med (Insulin Degludec/Liraglutide [Xultophy 100 Unit-3.6mg/Ml Pen]) 22 unit SQ DAILY [facility] Hydrochlorothiazide (Hydrodiuril) 25 mg PO DAILY [facility] Last Admin: 01/08/18 10:25 Dose: 25 mg Potassium Chloride (Potassium Chloride 20 Meq/100 Ml) 20 meq in 100 mls @ 50 mls/hr IVPB Q2 [facility] Stop: 01/09/18 01:59 Insulin Human Regular (Novolin R) 0 unit SC ACHS [facility] PRN Reason: Protocol Last Admin: 01/08/18 16:30 Dose: 4 units Losartan Potassium (Cozaar) 100 mg PO DAILY [facility] Last Admin: 01/08/18 10:28 Dose: 100 mg Metoprolol Succinate (Toprol Xl) 50 mg PO DAILY [facility] Last Admin: 01/08/18 10:25 Dose: 50 mg Pantoprazole Sodium (Protonix Ec Tab) 40 mg PO DAILY [facility] Last Admin: 01/08/18 10:27 Dose: 40 mg Phenytoin Sodium (Dilantin) 100 mg PO TID [facility] Last Admin: 01/08/18 18:12 Dose: 100 mg Potassium Chloride (K-Dur 20 Meq Er Tab) 20 meq PO DAILY [facility] Last Admin: 01/08/18 10:27 Dose: 20 meq Rosuvastatin Calcium (Crestor) 40 mg PO HS [facility] Last Admin: 01/07/18 21:40 Dose: 40 mg Theophylline (Jose C-24) 300 mg PO DAILY [facility] Last Admin: 01/08/18 10:25 Dose: Not Given - Labs Labs: 01/08/18 07:09 01/07/18 09:51 PT 47.7 SECONDS (9.7-12.2) H* D 01/08/18 14:09 INR 4.3 D 01/08/18 14:09 APTT 55 SECONDS (21-34) H 01/07/18 09:51 - Constitutional Appears: Well - Head Exam Head Exam: ATRAUMATIC, NORMAL INSPECTION, NORMOCEPHALIC - Eye Exam Eye Exam: EOMI, Normal appearance, PERRL Pupil Exam: NORMAL ACCOMODATION, PERRL - ENT Exam ENT Exam: Mucous Membranes Moist, Normal Exam - Neck Exam Neck Exam: Full ROM, Normal Inspection. absent: Lymphadenopathy - Respiratory Exam Respiratory Exam: Decreased Breath Sounds - Cardiovascular Exam Cardiovascular Exam: REGULAR RHYTHM, +S1, +S2 - GI/Abdominal Exam GI & Abdominal Exam: Soft, Diminished Bowel Sounds - Rectal Exam Rectal Exam: Deferred
[2018-01-09 07:44] LABS: BASO % 0.7 % (0.0-2.0); EOS # 0.3 K/uL (0.0-0.7); EOS % 4.3 % (0.0-4.0); HEMOGLOBIN 7.3 g/dL (11.0-16.0); LYMPH # 1.4 K/uL (1.0-4.3); LYMPH % 20.7 % (20.0-40.0); MEAN CELL VOLUME 85.6 fL (81.0-99.0); MEAN CORPUSCULAR HEMOGLOBIN 29.8 pg (27.0-31.0); MEAN CORPUSCULAR HGB CONC 34.8 g/dL (33.0-37.0); MEAN PLATELET VOLUME 8.2 fL (7.2-11.7); MONO # 0.6 K/uL (0.0-0.8); MONO % 8.2 % (0.0-10.0); NEUT # 4.4 K/uL (1.8-7.0); NEUT % 66.1 % (50.0-75.0); RBC 2.46 Mil/uL (3.80-5.20); RED CELL DISTRIBUTION WIDTH 15.3 % (11.5-14.5); WHITE BLOOD COUNT 6.7 K/uL (4.8-10.8)
[2018-01-09 07:58] LABS: PROTHROMBIN TIME 32.7 SECONDS (9.7-12.2)
[2018-01-09] MEDS: (Novolin R) Insulin Human Regular 100 units/ml vial SC SCH ×4 (08:00→21:47)
[2018-01-09 08:14] LABS: BLOOD UREA NITROGEN 20 mg/dL (7-17); CALCIUM 8.3 mg/dl (8.6-10.4); GFR AFRICAN-AMERICAN > 60; GFR NON-AFRICAN AMERICAN 57
[2018-01-09] MEDS ORDERED: Potassium Chloride 20 mEq ER Tab PO STA (09:20)
[2018-01-09] MEDS: XULTOPHY SC SCH (10:11)
[2018-01-09] MEDS: Pantoprazole 40 mg EC Tab PO SCH (10:17)
[2018-01-09] MEDS: Potassium Chloride 20 mEq ER Tab PO SCH (10:17)
[2018-01-09] MEDS: Metoprolol Succinate 50 mg XL Tab PO SCH (10:25)
[2018-01-09] MEDS: Theophylline 300mg ER 24 hrs Cap PO SCH ×2 (10:33→13:39)
--- NOTE | 2018-01-09 12:34 | CP.PCM.PN ---
Subjective - Date & Time of Evaluation Date of Evaluation: 01/09/18 Time of Evaluation: 08:20 - Subjective Subjective: clinically same Objective - Vital Signs/Intake and Output Vital Signs (last 24 hours): Temp Pulse Resp BP Pulse Ox 98.6 F 87 20 145/79 97 01/09/18 07:09 01/09/18 07:09 01/09/18 07:09 01/09/18 07:09 01/09/18 07:09 Intake and Output: 01/09/18 01/09/18 06:59 18:59 Intake Total 780 Balance 780 - Medications Medications: Current Medications Amlodipine Besylate (Norvasc) 10 mg PO DAILY [facility] Last Admin: 01/09/18 10:17 Dose: 10 mg Folic Acid (Folic Acid) 1 mg PO DAILY [facility] Last Admin: 01/09/18 10:16 Dose: 1 mg Home Med (Patient's Own Injectable) 22 unit SC DAILY [facility] Last Admin: 01/09/18 10:11 Dose: Not Given Hydrochlorothiazide (Hydrodiuril) 25 mg PO DAILY [facility] Last Admin: 01/09/18 10:17 Dose: 25 mg Insulin Human Regular (Novolin R) 0 unit SC [facility] PRN Reason: Protocol Last Admin: 01/09/18 08:00 Dose: 3 units Losartan Potassium (Cozaar) 100 mg PO DAILY [facility] Last Admin: 01/09/18 10:17 Dose: 100 mg Metoprolol Succinate (Toprol Xl) 50 mg PO DAILY [facility] Last Admin: 01/09/18 10:25 Dose: 50 mg Pantoprazole Sodium (Protonix Ec Tab) 40 mg PO DAILY [facility] Last Admin: 01/09/18 10:17 Dose: 40 mg Phenytoin Sodium (Dilantin) 100 mg PO TID [facility] Last Admin: 01/09/18 10:16 Dose: 100 mg Potassium Chloride (K-Dur 20 Meq Er Tab) 20 meq PO DAILY [facility] Last Admin: 01/09/18 10:17 Dose: 20 meq Rosuvastatin Calcium (Crestor) 40 mg PO HS [facility] Last Admin: 01/08/18 22:18 Dose: 40 mg Theophylline (Jose C-24) 300 mg PO DAILY [facility] Last Admin: 01/09/18 10:33 Dose: Not Given Tramadol HCl (Ultram) 50 mg PO Q6 PRN PRN Reason: pain Last Admin: 01/09/18 10:16 Dose: 50 mg - Labs Labs: 01/09/18 07:37 01/09/18 07:37 PT 32.7 SECONDS (9.7-12.2) H* D 01/09/18 07:37 INR 3.0 D 01/09/18 07:37 APTT 55 SECONDS (21-34) H 01/07/18 09:51 - Constitutional Appears: Well - Head Exam Head Exam: ATRAUMATIC, NORMAL INSPECTION, NORMOCEPHALIC - Eye Exam Eye Exam: EOMI, Normal appearance, PERRL Pupil Exam: NORMAL ACCOMODATION, PERRL - ENT Exam ENT Exam: Mucous Membranes Moist, Normal Exam - Neck Exam Neck Exam: Full ROM, Normal Inspection. absent: Lymphadenopathy - Respiratory Exam Respiratory Exam: Decreased Breath Sounds - Cardiovascular Exam Cardiovascular Exam: REGULAR RHYTHM, +S1, +S2 - GI/Abdominal Exam GI & Abdominal Exam: Soft, Diminished Bowel Sounds - Rectal Exam Rectal Exam: Deferred
[2018-01-09] MEDS ORDERED: Epoetin Alfa 20000 UNIT/ML Inj SC ONE (12:44)
--- NOTE | 2018-01-09 18:02 | CT ---
PROCEDURE: CT HEAD WITHOUT CONTRAST. HISTORY: r/o CVA COMPARISON: None available. TECHNIQUE: Axial computed tomography images were obtained through the head/brain without intravenous contrast. Coronal and sagittal reconstructed images. Radiation dose: Total exam DLP = 838.05 mGy-cm. This CT exam was performed using one or more of the following dose reduction techniques: Automated exposure control, adjustment of the mA and/or kV according to patient size, and/or use of iterative reconstruction technique. FINDINGS: HEMORRHAGE: No intracranial hemorrhage. BRAIN: No mass effect or edema. No atrophy or chronic microvascular ischemic changes. VENTRICLES: Unremarkable. No hydrocephalus. CALVARIUM: Unremarkable. PARANASAL SINUSES: Unremarkable as visualized. No significant inflammatory changes. MASTOID AIR CELLS: Unremarkable as visualized. No inflammatory changes. OTHER FINDINGS: None. IMPRESSION: No acute intracranial abnormalities. No significant findings to account for the clinical presentation.
--- NOTE | 2018-01-10 02:08 | CON ---
DATE: 01/09/2018 CARDIOLOGY CONSULTATION REASON FOR CONSULTATION: Mitral and aortic valve replacement as well as anemia and history of GI bleed. HISTORY OF PRESENT ILLNESS: The patient is a 57-year-old female who has a history of hypertension, diabetes mellitus, history of mitral and aortic valve replacements in 2008 at [facility] for which she was told leaky valve. The patient has also peripheral vascular disease and underwent multiple stenting to lower extremity. The most recent one was around 09/2017 followed by left big toe amputation while she was in the hospital at that time. The patient was treated for recurrent GI bleeding, recurrent melena. Bleeding scans were all negative. The patient eventually required distal small bowel resection which resulted no further recurrence of melena. The patient was admitted two days ago because of dizziness and generalized weakness. Her hemoglobin and hematocrit were found to be 6.8 and 20.6. The patient did receive 2 units of packed RBC and transfusion units. The patient denies any retrosternal chest pain or shortness of breath. She denies any recent history of stroke. SOCIAL HISTORY: Nonsmoker. She lives by herself with a friend who does help food shopping and sometimes takes her outside to shop for food. MEDICATIONS: Cozaar 100 mg once a day, Crestor 40 mg once a day, Dilantin 100 mg t.i.d., folic acid 1 mg once a day, hydrochlorothiazide 25 mg once a day, K-Dur 20 mEq once a day, Norvasc 10 mg once a day, Protonix 40 mg once a day, theophylline 300 mg daily, Lopressor 50 mg once a day, Ultram 50 mg p.o. every 6 hours p.r.n. PAST MEDICAL HISTORY: Hypertension, diabetes mellitus, status post aortic and mitral valve replacements, history of peripheral vascular disease, status post bilateral lower extremity stenting and recently left big toe amputation, history of GI bleeding, status post distal small bowel resection. PHYSICAL EXAMINATION: GENERAL: The patient is a middle-aged female who does not appear to be in acute distress; however, she sounds dysarthric, and she has apparent loss of right nasolabial fold. VITAL SIGNS: Blood pressure 123/73, heart rate 88, temperature 98.7, respirations 18. HEENT: Pale conjunctivae. CHEST: Clear. HEART: S1, S2 regular. ABDOMEN: Soft. EXTREMITIES: Trace leg edema. LABORATORY DATA: Today's SMA-7: Sodium 137, potassium 3.5, chloride 105, CO2 of 25, glucose 129, BUN 20, creatinine 1, calcium is below normal at 8.3. INR on admission was 6.1 and today is 3. Hemoglobin/hematocrit on admission was 5.5 and 16.9 and today 7.3 and 21. Echocardiographic study performed in September revealed [id number] concentric LVH with normal systolic function, prosthetic valves appear to be normal. The most recent EKG record is from 11/09/2017 which revealed sinus rhythm and prolonged QT interval, poor R-wave progression with possible anterolateral infarcts. ASSESSMENT: 1. Status post mitral and aortic valve replacement. 2. Iatrogenic coagulopathy and gastrointestinal bleeding. 3. Hypokalemia. 4. Uncontrolled diabetes mellitus. 5. History of recent distal small bowel resection for gastrointestinal bleeding. 6. Peripheral vascular disease, status post bilateral lower extremity stenting and recent left big toe amputation. RECOMMENDATIONS: Continue Cozaar 100 mg once a day, Crestor 40 mg once a day, Dilantin 100 mg t.i.d., hydrochlorothiazide 25 mg daily, K-Dur 20 mEq once a day, Norvasc 10 mg once a day, Toprol-XL 50 mg once a day. Obtain serum theophylline level. Obtain a 12-lead EKG. Hold on any further anticoagulation therapy. Kraig Sheldon MD
[2018-01-10 07:11] LABS: INR 1.9
[2018-01-10 07:12] LABS: BASO % 0.4 % (0.0-2.0); EOS # 0.3 K/uL (0.0-0.7); EOS % 4.4 % (0.0-4.0); HEMOGLOBIN 7.8 g/dL (11.0-16.0); LYMPH # 1.7 K/uL (1.0-4.3); MEAN CELL VOLUME 86.5 fL (81.0-99.0); MEAN CORPUSCULAR HEMOGLOBIN 29.5 pg (27.0-31.0); MEAN CORPUSCULAR HGB CONC 34.2 g/dL (33.0-37.0); MEAN PLATELET VOLUME 8.2 fL (7.2-11.7); MONO # 0.6 K/uL (0.0-0.8); MONO % 8.4 % (0.0-10.0); NEUT # 4.2 K/uL (1.8-7.0); NEUT % 61.8 % (50.0-75.0); RBC 2.63 Mil/uL (3.80-5.20); RED CELL DISTRIBUTION WIDTH 15.3 % (11.5-14.5); WHITE BLOOD COUNT 6.8 K/uL (4.8-10.8)
[2018-01-10 07:13] LABS: PROTHROMBIN TIME 20.3 SECONDS (9.7-12.2)
[2018-01-10 07:39] LABS: ALT/SGPT 17 U/L (9-52); AST/SGOT 23 U/L (14-36); BLOOD UREA NITROGEN 18 mg/dL (7-17); CALCIUM 8.3 mg/dl (8.6-10.4); GFR AFRICAN-AMERICAN > 60; GFR NON-AFRICAN AMERICAN 57
[2018-01-10] MEDS: (Novolin R) Insulin Human Regular 100 units/ml vial SC SCH ×4 (08:13→22:08)
[2018-01-10] MEDS: Metoprolol Succinate 50 mg XL Tab PO SCH (09:29)
--- NOTE | 2018-01-10 09:29 | CP.PCM.CON ---
<Adelita Scales - Last Filed: 01/10/18 09:30> History of Present Illness - History of Present Illness History of Present Illness: GI Fellow PGY4 Consult Note This is a 57yF with pmhx of DM, PVD with vascular intervention and left big toe amputation, mechanical mitral and aortic valve replacement on coumadin, chronic anemia from GI blood loss s/p resection of distal small bowel, chronic valvular hemolysis presenting with anemia. Pt was sent by primary Radiology Ct Technologist Dr. Lane for low Hgb on lab. Pt was found to have a Hgb of 5.5 on admission and has received 3U PRBCs with Hgb 7.8 today, Pt's INR was 6.0 on admission. Pt denied any rectal bleeding or hematemesis. Pt was admitted in October 2017 with active GI bleeding needing 10U PRBCs and colonoscopy found active bleeding from distal small bowel with blood by IC valve. Pt underwent distal small bowel resection with anastomosis. Push enteroscopy was negative for any bleeding from jejunum. She denies any issues after her discharge in October with no further rectal bleeding. ROS: A 12pt ROS was negative except as above PMHx: As stated above PSHx: coronory stents, distal revascularization procedure, mechanical aortic/ mitral valves, distal small bowel resection with anastomosis SHx: smoker x 30 yrs; denies EtOH, drugs FHx: Neg for colon cancer Past Patient History - Past Medical History & Family History Past Medical History?: Yes - Past Social History Smoking Status: Light Smoker < 10 Cigarettes Daily - CARDIAC Hx Hypercholesterolemia: Yes Hx Hypertension: Yes - PULMONARY Hx Asthma: Yes - NEUROLOGICAL Hx Seizures: Yes - HEENT Hx HEENT Problems: No Other/Comment: wears glasses - RENAL Hx Chronic Kidney Disease: No - ENDOCRINE/METABOLIC Hx Diabetes Mellitus Type 2: Yes - HEMATOLOGICAL/ONCOLOGICAL Hx Anemia: Yes - INTEGUMENTARY Hx Dermatological Problems: No - MUSCULOSKELETAL/RHEUMATOLOGICAL Hx Falls: No - GASTROINTESTINAL Hx Gastritis: Yes - GENITOURINARY/GYNECOLOGICAL Hx Genitourinary Disorders: No - PSYCHIATRIC Hx Substance Use: No - SURGICAL HISTORY Hx Amputation: Yes (left big toe amputation 09/2017) Hx Valve Replacement: Yes Other/Comment: left leg stent placement, lt foot 1st digit amputation, small bowel sx - ANESTHESIA Hx Anesthesia: Yes Hx Anesthesia Reactions: No Meds Allergies/Adverse Reactions: Allergies Allergy/AdvReac Type Severity Reaction Status Date / Time No Known Allergies Allergy Verified 10/14/17 12:13 - Medications Medications: Current Medications Amlodipine Besylate (Norvasc) 10 mg PO DAILY [facility] Last Admin: 01/09/18 10:17 Dose: 10 mg Folic Acid (Folic Acid) 1 mg PO DAILY [facility] Last Admin: 01/09/18 10:16 Dose: 1 mg Home Med (Patient's Own Injectable) 22 unit SC DAILY [facility] Last Admin: 01/09/18 10:11 Dose: Not Given Hydrochlorothiazide (Hydrodiuril) 25 mg PO DAILY [facility] Last Admin: 01/09/18 10:17 Dose: 25 mg Insulin Human Regular (Novolin R) 0 unit SC [facility] PRN Reason: Protocol Last Admin: 01/10/18 08:13 Dose: 3 units Losartan Potassium (Cozaar) 100 mg PO DAILY [facility] Last Admin: 01/09/18 10:17 Dose: 100 mg Metoprolol Succinate (Toprol Xl) 50 mg PO DAILY [facility] Last Admin: 01/09/18 10:25 Dose: 50 mg Pantoprazole Sodium (Protonix Ec Tab) 40 mg PO DAILY [facility] Last Admin: 01/09/18 10:17 Dose: 40 mg Phenytoin Sodium (Dilantin) 100 mg PO TID [facility] Last Admin: 01/09/18 17:14 Dose: 100 mg Potassium Chloride (K-Dur 20 Meq Er Tab) 20 meq PO DAILY [facility] Last Admin: 01/09/18 10:17 Dose: 20 meq Rosuvastatin Calcium (Crestor) 40 mg PO HS [facility] Last Admin: 01/09/18 21:07 Dose: 40 mg Theophylline (Jose C-24) 300 mg PO DAILY [facility] Last Admin: 01/09/18 13:39 Dose: 300 mg Tramadol HCl (Ultram) 50 mg PO Q6 PRN PRN Reason: pain Last Admin: 01/09/18 17:14 Dose: 50 mg Physical Exam - Constitutional Appears: Non-toxic, No Acute Distress - Head Exam Head Exam: ATRAUMATIC, NORMAL INSPECTION, NORMOCEPHALIC - Eye Exam Eye Exam: EOMI, Normal appearance, PERRL Pupil Exam: PERRL - ENT Exam ENT Exam: Mucous Membranes Moist, Normal Exam - Neck Exam Neck exam: Positive for: Full Rom, Normal Inspection - Respiratory Exam Respiratory Exam: Clear to Auscultation Bilateral, NORMAL BREATHING PATTERN - Cardiovascular Exam Cardiovascular Exam: RRR, +S1, +S2 - GI/Abdominal Exam GI & Abdominal Exam: Firm, Normal Bowel Sounds, Soft. absent: Organomegaly, Tenderness Additional comments: old surgical scar - Rectal Exam Rectal Exam: NORMAL INSPECTION. absent: Black Stool, Bloody Stool, Hemorrhoids Additional comments: light brown stool - Extremities Exam Extremities exam: Positive for: full ROM, normal inspection - Back Exam Back exam: NORMAL INSPECTION - Neurological Exam Neurological exam: Alert, Oriented x3 - Psychiatric Exam Psychiatric exam: Normal Affect, Normal Mood - Skin Skin Exam: Dry, Intact, Normal Color Results - Vital Signs Recent Vital Signs: Last Vital Signs Temp 98.4 F 01/10/18 00:06 Pulse 80 01/10/18 00:06 Resp 18 01/10/18 00:06 BP 115/73 01/10/18 00:06 Pulse Ox 98 01/10/18 00:06 - Labs Result Diagrams: 01/10/18 07:01 01/10/18 07:01 Labs: Laboratory Results - last 24 hr 01/07/18 01/09/18 01/09/18 09:51 02:32 11:25 WBC RBC Hgb Hct MCV MCH MCHC RDW Plt Count MPV Neut % (Auto) Lymph % (Auto) [place] % (Auto) Eos % (Auto) Baso % (Auto) Neut # (Auto) Lymph # (Auto) [place] # (Auto) Eos # (Auto) Baso # (Auto) PT INR Sodium Potassium Chloride Carbon Dioxide Anion Gap BUN Creatinine Est GFR ( Amer) Est GFR (Non-Af Amer) POC Glucose (mg/dL) 241 H 216 H Random Glucose Calcium Total Bilirubin AST ALT Alkaline Phosphatase Total Protein Albumin Globulin Albumin/Globulin Ratio Theophylline Blood Type A POSITIVE Antibody Screen Negative 01/09/18 01/09/18 01/09/18 16:28 20:19 21:18 WBC RBC Hgb Hct MCV MCH MCHC RDW Plt Count MPV Neut % (Auto) Lymph % (Auto) [place] % (Auto) Eos % (Auto) Baso % (Auto) Neut # (Auto) Lymph # (Auto) [place] # (Auto) Eos # (Auto) Baso # (Auto) PT INR Sodium Potassium Chloride Carbon Dioxide Anion Gap BUN Creatinine Est GFR ( Amer) Est GFR (Non-Af Amer) POC Glucose (mg/dL) 336 H 298 H Random Glucose Calcium Total Bilirubin AST ALT Alkaline Phosphatase Total Protein Albumin Globulin Albumin/Globulin Ratio Theophylline 7.7 L Blood Type Antibody Screen 01/10/18 01/10/18 01/10/18 07:01 07:01 07:01 WBC 6.8 RBC 2.63 L Hgb 7.8 L Hct 22.8 L MCV 86.5 MCH 29.5 MCHC 34.2 RDW 15.3 H Plt Count 245 MPV 8.2 Neut % (Auto) 61.8 Lymph % (Auto) 25.0 [place] % (Auto) 8.4 Eos % (Auto) 4.4 H Baso % (Auto) 0.4 Neut # (Auto) 4.2 Lymph # (Auto) 1.7 [place] # (Auto) 0.6 Eos # (Auto) 0.3 Baso # (Auto) 0.0 PT 20.3 H D INR 1.9 D Sodium 139 Potassium 4.0 Chloride 106 Carbon Dioxide 24 Anion Gap 13 BUN 18 H Creatinine 1.0 Est GFR ( Amer) > 60 Est GFR (Non-Af Amer) 57 POC Glucose (mg/dL) Random Glucose 246 H Calcium 8.3 L Total Bilirubin 0.5 AST 23 ALT 17 Alkaline Phosphatase 151 H Total Protein 5.9 L Albumin 3.0 L Globulin 3.0 Albumin/Globulin Ratio 1.0 Theophylline Blood Type Antibody Screen 01/10/18 07:37 WBC RBC Hgb Hct MCV MCH MCHC RDW Plt Count MPV Neut % (Auto) Lymph % (Auto) [place] % (Auto) Eos % (Auto) Baso % (Auto) Neut # (Auto) Lymph # (Auto) [place] # (Auto) Eos # (Auto) Baso # (Auto) PT INR Sodium Potassium Chloride Carbon Dioxide Anion Gap BUN Creatinine Est GFR ( Amer) Est GFR (Non-Af Amer) POC Glucose (mg/dL) 237 H Random Glucose Calcium Total Bilirubin AST ALT Alkaline Phosphatase Total Protein Albumin Globulin Albumin/Globulin Ratio Theophylline Blood Type Antibody Screen Assessment & Plan - Assessment and Plan (Free Text) Assessment: This is a 57yF with pmhx of DM, PVD with vascular intervention and left big toe amputation, mechanical mitral and aortic valve replacement on coumadin, chronic anemia from GI blood loss s/p resection of distal small bowel, chronic valvular hemolysis presenting with anemia. 1. Anemia 2. Coagulopathy, elevated INR 3. Hx of Small bowel GI bleeding s/p resection 4. Hx of mechanical mitral/aortic valve on OAC 5. Hx of chronic valvular hemolysis Plan: -Continue supportive care -No active GI bleeding, Hgb stable at 7.8 s/p 3U PRBCs -Monitor H/H and transfuse as needed -Avoid NSAIDs -Continue PPI daily -Elevated INR better now at 3.0 -Close management of OAC -Appreciate Hematology consultation -Pt with no overt GI bleeding at this time, no plan for nay GI intervention, if develops GI bleeding will reconsider -Please call with any questions or concerns <Bradley Cordoba - Last Filed: 01/10/18 10:08> Meds - Medications Medications: Current Medications Amlodipine Besylate (Norvasc) 10 mg PO DAILY [facility] Last Admin: 01/10/18 09:30 Dose: 10 mg Folic Acid (Folic Acid) 1 mg PO DAILY [facility] Last Admin: 01/10/18 09:28 Dose: 1 mg Home Med (Patient's Own Injectable) 22 unit SC DAILY [facility] Last Admin: 01/09/18 10:11 Dose: Not Given Hydrochlorothiazide (Hydrodiuril) 25 mg PO DAILY [facility] Last Admin: 01/10/18 09:29 Dose: 25 mg Insulin Human Regular (Novolin R) 0 unit SC [facility] PRN Reason: Protocol Last Admin: 01/10/18 08:13 Dose: 3 units Losartan Potassium (Cozaar) 100 mg PO DAILY [facility] Last Admin: 01/10/18 09:29 Dose: 100 mg Metoprolol Succinate (Toprol Xl) 50 mg PO DAILY [facility] Last Admin: 01/10/18 09:29 Dose: 50 mg Pantoprazole Sodium (Protonix Ec Tab) 40 mg PO DAILY [facility] Last Admin: 01/10/18 09:30 Dose: 40 mg Phenytoin Sodium (Dilantin) 100 mg PO TID [facility] Last Admin: 01/10/18 09:30 Dose: 100 mg Potassium Chloride (K-Dur 20 Meq Er Tab) 20 meq PO DAILY [facility] Last Admin: 01/10/18 09:30 Dose: 20 meq Rosuvastatin Calcium (Crestor) 40 mg PO HS [facility] Last Admin: 01/09/18 21:07 Dose: 40 mg Theophylline (Jose C-24) 300 mg PO DAILY [facility] Last Admin: 01/09/18 13:39 Dose: 300 mg Tramadol HCl (Ultram) 50 mg PO Q6 PRN PRN Reason: pain Last Admin: 01/10/18 09:46 Dose: 50 mg Results - Vital Signs Recent Vital Signs: Last Vital Signs Temp 98.7 F 01/10/18 09:00 Pulse 81 01/10/18 09:00 Resp 20 01/10/18 09:00 BP 121/73 01/10/18 09:00 Pulse Ox 98 01/10/18 09:00 - Labs Result Diagrams: 01/10/18 07:01 01/10/18 07:01 Labs: Laboratory Results - last 24 hr 01/07/18 01/09/18 01/09/18 09:51 02:32 11:25 WBC RBC Hgb Hct MCV MCH MCHC RDW Plt Count MPV Neut % (Auto) Lymph % (Auto) [place] % (Auto) Eos % (Auto) Baso % (Auto) Neut # (Auto) Lymph # (Auto) [place] # (Auto) Eos # (Auto) Baso # (Auto) PT INR Sodium Potassium Chloride Carbon Dioxide Anion Gap BUN Creatinine Est GFR ( Amer) Est GFR (Non-Af Amer) POC Glucose (mg/dL) 241 H 216 H Random Glucose Calcium Total Bilirubin AST ALT Alkaline Phosphatase Total Protein Albumin Globulin Albumin/Globulin Ratio Theophylline Blood Type A POSITIVE Antibody Screen Negative 01/09/18 01/09/18 01/09/18 16:28 20:19 21:18 WBC RBC Hgb Hct MCV MCH MCHC RDW Plt Count MPV Neut % (Auto) Lymph % (Auto) [place] % (Auto) Eos % (Auto) Baso % (Auto) Neut # (Auto) Lymph # (Auto) [place] # (Auto) Eos # (Auto) Baso # (Auto) PT INR Sodium Potassium Chloride Carbon Dioxide Anion Gap BUN Creatinine Est GFR ( Amer) Est GFR (Non-Af Amer) POC Glucose (mg/dL) 336 H 298 H Random Glucose Calcium Total Bilirubin AST ALT Alkaline Phosphatase Total Protein Albumin Globulin Albumin/Globulin Ratio Theophylline 7.7 L Blood Type Antibody Screen 01/10/18 01/10/18 01/10/18 07:01 07:01 07:01 WBC 6.8 RBC 2.63 L Hgb 7.8 L Hct 22.8 L MCV 86.5 MCH 29.5 MCHC 34.2 RDW 15.3 H Plt Count 245 MPV 8.2 Neut % (Auto) 61.8 Lymph % (Auto) 25.0 [place] % (Auto) 8.4 Eos % (Auto) 4.4 H Baso % (Auto) 0.4 Neut # (Auto) 4.2 Lymph # (Auto) 1.7 [place] # (Auto) 0.6 Eos # (Auto) 0.3 Baso # (Auto) 0.0 PT 20.3 H D INR 1.9 D Sodium 139 Potassium 4.0 Chloride 106 Carbon Dioxide 24 Anion Gap 13 BUN 18 H Creatinine 1.0 Est GFR ( Amer) > 60 Est GFR (Non-Af Amer) 57 POC Glucose (mg/dL) Random Glucose 246 H Calcium 8.3 L Total Bilirubin 0.5 AST 23 ALT 17 Alkaline Phosphatase 151 H Total Protein 5.9 L Albumin 3.0 L Globulin 3.0 Albumin/Globulin Ratio 1.0 Theophylline Blood Type Antibody Screen 01/10/18 07:37 WBC RBC Hgb Hct MCV MCH MCHC RDW Plt Count MPV Neut % (Auto) Lymph % (Auto) [place] % (Auto) Eos % (Auto) Baso % (Auto) Neut # (Auto) Lymph # (Auto) [place] # (Auto) Eos # (Auto) Baso # (Auto) PT INR Sodium Potassium Chloride Carbon Dioxide Anion Gap BUN Creatinine Est GFR ( Amer) Est GFR (Non-Af Amer) POC Glucose (mg/dL) 237 H Random Glucose Calcium Total Bilirubin AST ALT Alkaline Phosphatase Total Protein Albumin Globulin Albumin/Globulin Ratio Theophylline Blood Type Antibody Screen Attending/Attestation - Attestation I have personally seen and examined this patient.: Yes I have fully participated in the care of the patient.: Yes I have reviewed all pertinent clinical information: Yes Notes (Text): 01/10/18 10:06 57 year old female with h/o PAD, DM, MV/AV replacement on coumadin with chronic GI bleeding s/p SB resection, h/o hemolysis, a/w anemia. No overt Gi bleeding noted. Responded well to transfusion. Would monitor. Previous egd/colon performed. No acute intervention planned currently unless bleeding develops.
[2018-01-10] MEDS: Potassium Chloride 20 mEq ER Tab PO SCH (09:30)
[2018-01-10] MEDS: Pantoprazole 40 mg EC Tab PO SCH (09:30)
[2018-01-10] MEDS: XULTOPHY SC SCH ×2 (11:09→11:10)
[2018-01-10] MEDS: Theophylline 300mg ER 24 hrs Cap PO SCH (11:09)
--- NOTE | 2018-01-10 19:12 | CP.PCM.PN ---
Subjective - Date & Time of Evaluation Date of Evaluation: 01/10/18 Time of Evaluation: 07:40 - Subjective Subjective: clinically same Objective - Vital Signs/Intake and Output Vital Signs (last 24 hours): Temp Pulse Resp BP Pulse Ox 98.4 F 76 20 99/63 L 100 01/10/18 15:00 01/10/18 15:00 01/10/18 15:00 01/10/18 15:00 01/10/18 15:00 Intake and Output: 01/10/18 01/11/18 18:59 06:59 Output Total 350 Balance -350 - Medications Medications: Current Medications Amlodipine Besylate (Norvasc) 10 mg PO DAILY [facility] Last Admin: 01/10/18 09:30 Dose: 10 mg Folic Acid (Folic Acid) 1 mg PO DAILY [facility] Last Admin: 01/10/18 09:28 Dose: 1 mg Home Med (Patient's Own Injectable) 22 unit SC DAILY [facility] Last Admin: 01/10/18 11:10 Dose: 22 unit Hydrochlorothiazide (Hydrodiuril) 25 mg PO DAILY [facility] Last Admin: 01/10/18 09:29 Dose: 25 mg Insulin Human Regular (Novolin R) 0 unit SC [facility] PRN Reason: Protocol Last Admin: 01/10/18 17:29 Dose: 3 units Losartan Potassium (Cozaar) 100 mg PO DAILY [facility] Last Admin: 01/10/18 09:29 Dose: 100 mg Metoprolol Succinate (Toprol Xl) 50 mg PO DAILY [facility] Last Admin: 01/10/18 09:29 Dose: 50 mg Pantoprazole Sodium (Protonix Ec Tab) 40 mg PO DAILY [facility] Last Admin: 01/10/18 09:30 Dose: 40 mg Phenytoin Sodium (Dilantin) 100 mg PO TID [facility] Last Admin: 01/10/18 17:32 Dose: 100 mg Potassium Chloride (K-Dur 20 Meq Er Tab) 20 meq PO DAILY [facility] Last Admin: 01/10/18 09:30 Dose: 20 meq Rosuvastatin Calcium (Crestor) 40 mg PO HS [facility] Last Admin: 01/09/18 21:07 Dose: 40 mg Theophylline (Jose C-24) 300 mg PO DAILY [facility] Last Admin: 01/10/18 11:09 Dose: 300 mg Tramadol HCl (Ultram) 50 mg PO Q6 PRN PRN Reason: pain Last Admin: 01/10/18 09:46 Dose: 50 mg - Labs Labs: 01/10/18 07:01 01/10/18 07:01 PT 20.3 SECONDS (9.7-12.2) H D 01/10/18 07:01 INR 1.9 D 01/10/18 07:01 APTT 55 SECONDS (21-34) H 01/07/18 09:51 - Constitutional Appears: Well - Head Exam Head Exam: ATRAUMATIC, NORMAL INSPECTION, NORMOCEPHALIC - Eye Exam Eye Exam: EOMI, Normal appearance, PERRL Pupil Exam: NORMAL ACCOMODATION, PERRL - ENT Exam ENT Exam: Mucous Membranes Moist, Normal Exam - Neck Exam Neck Exam: Full ROM, Normal Inspection. absent: Lymphadenopathy - Respiratory Exam Respiratory Exam: Decreased Breath Sounds - Cardiovascular Exam Cardiovascular Exam: REGULAR RHYTHM, +S1, +S2 - GI/Abdominal Exam GI & Abdominal Exam: Soft, Diminished Bowel Sounds - Rectal Exam Rectal Exam: Deferred Assessment and Plan (1) GI bleed Status: Acute (2) Symptomatic anemia Status: Acute (3) Amputation of fifth toe, left, traumatic Status: Acute (4) Anemia Status: Acute (5) Coagulopathy Status: Acute (6) S/P MVR (mitral valve replacement) Status: Acute (7) Small intestinal hemorrhage requiring more than four units of blood in 24 hours, admission to ICU, or surgery Status: Acute (8) Toe gangrene Status: Acute (9) Uncontrolled hypertension Status: Acute (10) CAD (coronary artery disease) Status: Chronic (11) Dyslipidemia Status: Chronic (12) PVD (peripheral vascular disease) Status: Chronic (13) Uncontrolled diabetes mellitus Status: Chronic - Assessment and Plan (Free Text) Plan: Continue supportive care -No active GI bleeding, Hgb stable at 7.8 s/p 3U PRBCs -Monitor H/H and transfuse as needed -Avoid NSAIDs -Continue PPI daily -Elevated INR better now at 3.0 cardio follow up badiin -Close management of OAC -Appreciate Hematology consultation -Pt with no overt GI bleeding at this time, no plan for nay GI intervention, if develops GI bleeding will reconsider -Please call with any questions or concerns
--- NOTE | 2018-01-10 21:07 | CP.PCM.PN ---
Subjective - Date & Time of Evaluation Date of Evaluation: 01/08/18 Time of Evaluation: 18:00 - Subjective Subjective: No complaints. Objective - Vital Signs/Intake and Output Vital Signs (last 24 hours): Temp Pulse Resp BP Pulse Ox 98.4 F 76 20 99/63 L 100 01/10/18 15:00 01/10/18 15:00 01/10/18 15:00 01/10/18 15:00 01/10/18 15:00 Intake and Output: 01/10/18 01/11/18 18:59 06:59 Output Total 350 Balance -350 - Medications Medications: Current Medications Amlodipine Besylate (Norvasc) [address] [facility] Last Admin: 01/10/18 09:30 Dose: 10 mg Folic Acid (Folic Acid) [address] [facility] Last Admin: 01/10/18 09:28 Dose: 1 mg Home Med (Patient's Own Injectable) [address] [facility] Last Admin: 01/10/18 11:10 Dose: 22 unit Hydrochlorothiazide (Hydrodiuril) [address] [facility] Last Admin: 01/10/18 09:29 Dose: 25 mg Insulin Human Regular (Novolin R) [address] [facility] PRN Reason: Protocol Last Admin: 01/10/18 17:29 Dose: 3 units Losartan Potassium (Cozaar) [address] [facility] Last Admin: 01/10/18 09:29 Dose: 100 mg Metoprolol Succinate (Toprol Xl) [address] [facility] Last Admin: 01/10/18 09:29 Dose: 50 mg Pantoprazole Sodium (Protonix Ec Tab) [address] [facility] Last Admin: 01/10/18 09:30 Dose: 40 mg Phenytoin Sodium (Dilantin) [address] [facility] Last Admin: 01/10/18 17:32 Dose: 100 mg Potassium Chloride (K-Dur 20 Meq Er Tab) [address] [facility] Last Admin: 01/10/18 09:30 Dose: 20 meq Rosuvastatin Calcium (Crestor) [address] [facility] Last Admin: 01/09/18 21:07 Dose: 40 mg Theophylline (Jose C-24) [address] [facility] Last Admin: 01/10/18 11:09 Dose: 300 mg Tramadol HCl (Ultram) 50 mg PO Q6 PRN PRN Reason: pain Last Admin: 01/10/18 09:46 Dose: 50 mg - Labs Labs: 01/10/18 07:01 01/10/18 07:01 PT 20.3 SECONDS (9.7-12.2) H D 01/10/18 07:01 INR 1.9 D 01/10/18 07:01 APTT 55 SECONDS (21-34) H 01/07/18 09:51 - Head Exam Head Exam: ATRAUMATIC - Eye Exam Eye Exam: Normal appearance - ENT Exam ENT Exam: Mucous Membranes Dry - Respiratory Exam Respiratory Exam: NORMAL BREATHING PATTERN - Cardiovascular Exam Cardiovascular Exam: +S1, +S2 - GI/Abdominal Exam GI & Abdominal Exam: Normal Bowel Sounds Assessment and Plan (1) Anemia Assessment & Plan: multifactorial prior GI blood loss; FOBT positive valvular hemolysis; cardiology evaluation normal iron, b12, folate stores s/p PRBC transfusion Status: Acute (2) Coagulopathy Assessment & Plan: secondary to coumadin; on hold Status: Acute
--- NOTE | 2018-01-10 21:08 | CP.PCM.PN ---
Subjective - Date & Time of Evaluation Date of Evaluation: 01/09/18 Time of Evaluation: 14:00 - Subjective Subjective: No complaints. Objective - Vital Signs/Intake and Output Vital Signs (last 24 hours): Temp Pulse Resp BP Pulse Ox 98.4 F 76 20 99/63 L 100 01/10/18 15:00 01/10/18 15:00 01/10/18 15:00 01/10/18 15:00 01/10/18 15:00 Intake and Output: 01/10/18 01/11/18 18:59 06:59 Output Total 350 Balance -350 - Medications Medications: Current Medications Amlodipine Besylate (Norvasc) 10 mg PO DAILY [facility] Last Admin: 01/10/18 09:30 Dose: 10 mg Folic Acid (Folic Acid) 1 mg PO DAILY [facility] Last Admin: 01/10/18 09:28 Dose: 1 mg Home Med (Patient's Own Injectable) 22 unit SC DAILY [facility] Last Admin: 01/10/18 11:10 Dose: 22 unit Hydrochlorothiazide (Hydrodiuril) 25 mg PO DAILY [facility] Last Admin: 01/10/18 09:29 Dose: 25 mg Insulin Human Regular (Novolin R) 0 unit SC ACHS [facility] PRN Reason: Protocol Last Admin: 01/10/18 17:29 Dose: 3 units Losartan Potassium (Cozaar) 100 mg PO DAILY [facility] Last Admin: 01/10/18 09:29 Dose: 100 mg Metoprolol Succinate (Toprol Xl) 50 mg PO DAILY [facility] Last Admin: 01/10/18 09:29 Dose: 50 mg Pantoprazole Sodium (Protonix Ec Tab) 40 mg PO DAILY [facility] Last Admin: 01/10/18 09:30 Dose: 40 mg Phenytoin Sodium (Dilantin) 100 mg PO TID [facility] Last Admin: 01/10/18 17:32 Dose: 100 mg Potassium Chloride (K-Dur 20 Meq Er Tab) 20 meq PO DAILY [facility] Last Admin: 01/10/18 09:30 Dose: 20 meq Rosuvastatin Calcium (Crestor) 40 mg PO HS [facility] Last Admin: 01/09/18 21:07 Dose: 40 mg Theophylline (Jose C-24) 300 mg PO DAILY [facility] Last Admin: 01/10/18 11:09 Dose: 300 mg Tramadol HCl (Ultram) 50 mg PO Q6 PRN PRN Reason: pain Last Admin: 01/10/18 09:46 Dose: 50 mg - Labs Labs: 01/10/18 07:01 01/10/18 07:01 PT 20.3 SECONDS (9.7-12.2) H D 01/10/18 07:01 INR 1.9 D 01/10/18 07:01 APTT 55 SECONDS (21-34) H 01/07/18 09:51 - Head Exam Head Exam: ATRAUMATIC - Eye Exam Eye Exam: Normal appearance - ENT Exam ENT Exam: Mucous Membranes Dry - Respiratory Exam Respiratory Exam: NORMAL BREATHING PATTERN - Cardiovascular Exam Cardiovascular Exam: +S1, +S2 - GI/Abdominal Exam GI & Abdominal Exam: Normal Bowel Sounds Assessment and Plan (1) Anemia Assessment & Plan: multifactorial prior GI blood loss; FOBT positive valvular hemolysis; cardiology evaluation normal iron, b12, folate stores s/p PRBC transfusion Status: Acute (2) Coagulopathy Assessment & Plan: improving, coumadin on hold Status: Acute
--- NOTE | 2018-01-10 21:10 | CP.PCM.PN ---
Subjective - Date & Time of Evaluation Date of Evaluation: 01/10/18 Time of Evaluation: 19:30 - Subjective Subjective: No complaints. Objective - Vital Signs/Intake and Output Vital Signs (last 24 hours): Temp Pulse Resp BP Pulse Ox 98.4 F 76 20 99/63 L 100 01/10/18 15:00 01/10/18 15:00 01/10/18 15:00 01/10/18 15:00 01/10/18 15:00 Intake and Output: 01/10/18 01/11/18 18:59 06:59 Output Total 350 Balance -350 - Medications Medications: Current Medications Amlodipine Besylate (Norvasc) 10 mg PO DAILY [facility] Last Admin: 01/10/18 09:30 Dose: 10 mg Folic Acid (Folic Acid) 1 mg PO DAILY [facility] Last Admin: 01/10/18 09:28 Dose: 1 mg Home Med (Patient's Own Injectable) 22 unit SC DAILY [facility] Last Admin: 01/10/18 11:10 Dose: 22 unit Hydrochlorothiazide (Hydrodiuril) 25 mg PO DAILY [facility] Last Admin: 01/10/18 09:29 Dose: 25 mg Insulin Human Regular (Novolin R) 0 unit SC ACHS [facility] PRN Reason: Protocol Last Admin: 01/10/18 17:29 Dose: 3 units Losartan Potassium (Cozaar) 100 mg PO DAILY [facility] Last Admin: 01/10/18 09:29 Dose: 100 mg Metoprolol Succinate (Toprol Xl) 50 mg PO DAILY [facility] Last Admin: 01/10/18 09:29 Dose: 50 mg Pantoprazole Sodium (Protonix Ec Tab) 40 mg PO DAILY [facility] Last Admin: 01/10/18 09:30 Dose: 40 mg Phenytoin Sodium (Dilantin) 100 mg PO TID [facility] Last Admin: 01/10/18 17:32 Dose: 100 mg Potassium Chloride (K-Dur 20 Meq Er Tab) 20 meq PO DAILY [facility] Last Admin: 01/10/18 09:30 Dose: 20 meq Rosuvastatin Calcium (Crestor) 40 mg PO HS [facility] Last Admin: 01/09/18 21:07 Dose: 40 mg Theophylline (Jose C-24) 300 mg PO DAILY [facility] Last Admin: 01/10/18 11:09 Dose: 300 mg Tramadol HCl (Ultram) 50 mg PO Q6 PRN PRN Reason: pain Last Admin: 01/10/18 09:46 Dose: 50 mg - Labs Labs: 01/10/18 07:01 01/10/18 07:01 PT 20.3 SECONDS (9.7-12.2) H D 01/10/18 07:01 INR 1.9 D 01/10/18 07:01 APTT 55 SECONDS (21-34) H 01/07/18 09:51 - Head Exam Head Exam: ATRAUMATIC - Eye Exam Eye Exam: Normal appearance - ENT Exam ENT Exam: Mucous Membranes Dry - Respiratory Exam Respiratory Exam: NORMAL BREATHING PATTERN - Cardiovascular Exam Cardiovascular Exam: +S1, +S2 - GI/Abdominal Exam GI & Abdominal Exam: Normal Bowel Sounds Assessment and Plan (1) Anemia Assessment & Plan: multifactorial prior GI blood loss; FOBT positive valvular hemolysis; cardiology evaluation normal iron, b12, folate stores s/p PRBC transfusion Status: Acute (2) Coagulopathy Assessment & Plan: improving, coumadin on hold Status: Acute
--- NOTE | 2018-01-10 23:25 | PN ---
DATE: 01/10/2018 SUBJECTIVE: The patient denies chest pain or shortness of breath. She had her left foot dressing changed today. OBJECTIVE: VITAL SIGNS: Blood pressure 99/63, heart rate 76, temperature 98.4, respirations 20. HEENT: Pale conjunctivae. CHEST: Clear. HEART: S1, S2 regular. EXTREMITIES: Trace leg edema. LABORATORY DATA: Today's hemoglobin and hematocrit 7.8 and 22.8 respectively. White count and platelet count are within normal limit. Today's SMA-7 is within normal limits except for glucose 146 and BUN of 18. Today's INR is 1.9. Head CT scan without contrast, no acute findings. ASSESSMENT: 1. Status post mechanical aortic and mitral valve replacement in the past. 2. Iatrogenic coagulopathy and lower gastrointestinal bleeding. 3. Improved hypokalemia. 4. Uncontrolled diabetes mellitus. 5. Peripheral vascular disease, status post bilateral lower extremity stenting with recent left big toe amputation. 6. History of recent distal small bowel resection for gastrointestinal bleeding. 7. History of seizure disorder in the past. No recurrence over the past few years. RECOMMENDATIONS: Continue Cozaar 100 mg once a day, Crestor 40 mg once a day, Dilantin 100 mg t.i.d., folic acid 1 mg once a day, hydrochlorothiazide 25 mg once a day, K-Dur 20 mEq orally once a day, Norvasc 10 mg once a day, Toprol XL 50 mg once a day, Jose C-Dur 300 mg daily. Kraig Sheldon MD
--- NOTE | 2018-01-11 08:06 | CP.PCM.PN ---
Subjective - Date & Time of Evaluation Date of Evaluation: 01/11/18 Time of Evaluation: 06:30 Objective - Vital Signs/Intake and Output Vital Signs (last 24 hours): Temp Pulse Resp BP Pulse Ox 98.9 F 87 20 126/65 99 01/11/18 00:10 01/11/18 00:10 01/11/18 00:10 01/11/18 00:10 01/11/18 00:10 Intake and Output: 01/11/18 01/11/18 06:59 18:59 Intake Total 560 Balance 560 - Medications Medications: Current Medications Amlodipine Besylate (Norvasc) 10 mg PO DAILY [facility] Last Admin: 01/10/18 09:30 Dose: 10 mg Folic Acid (Folic Acid) 1 mg PO DAILY [facility] Last Admin: 01/10/18 09:28 Dose: 1 mg Home Med (Patient's Own Injectable) 22 unit SC DAILY [facility] Last Admin: 01/10/18 11:10 Dose: 22 unit Hydrochlorothiazide (Hydrodiuril) 25 mg PO DAILY [facility] Last Admin: 01/10/18 09:29 Dose: 25 mg Insulin Human Regular (Novolin R) 0 unit SC [facility] PRN Reason: Protocol Last Admin: 01/10/18 22:08 Dose: Not Given Losartan Potassium (Cozaar) 100 mg PO DAILY [facility] Last Admin: 01/10/18 09:29 Dose: 100 mg Metoprolol Succinate (Toprol Xl) 50 mg PO DAILY [facility] Last Admin: 01/10/18 09:29 Dose: 50 mg Pantoprazole Sodium (Protonix Ec Tab) 40 mg PO DAILY [facility] Last Admin: 01/10/18 09:30 Dose: 40 mg Phenytoin Sodium (Dilantin) 100 mg PO TID [facility] Last Admin: 01/10/18 17:32 Dose: 100 mg Potassium Chloride (K-Dur 20 Meq Er Tab) 20 meq PO DAILY [facility] Last Admin: 01/10/18 09:30 Dose: 20 meq Rosuvastatin Calcium (Crestor) 40 mg PO HS [facility] Last Admin: 01/10/18 22:07 Dose: 40 mg Theophylline (Jose C-24) 300 mg PO DAILY [facility] Last Admin: 01/10/18 11:09 Dose: 300 mg Tramadol HCl (Ultram) 50 mg PO Q6 PRN PRN Reason: pain Last Admin: 01/11/18 00:30 Dose: 50 mg - Labs Labs: 01/10/18 07:01 01/10/18 07:01 PT 20.3 SECONDS (9.7-12.2) H D 01/10/18 07:01 INR 1.9 D 01/10/18 07:01 APTT 55 SECONDS (21-34) H 01/07/18 09:51 - Constitutional Appears: Non-toxic, No Acute Distress - Head Exam Head Exam: ATRAUMATIC, NORMAL INSPECTION, NORMOCEPHALIC - Eye Exam Eye Exam: EOMI, Normal appearance, PERRL Pupil Exam: PERRL - ENT Exam ENT Exam: Mucous Membranes Moist, Normal Exam - Neck Exam Neck Exam: Full ROM, Normal Inspection - Respiratory Exam Respiratory Exam: Clear to Ausculation Bilateral, NORMAL BREATHING PATTERN - Cardiovascular Exam Cardiovascular Exam: REGULAR RHYTHM, +S1, +S2 - GI/Abdominal Exam GI & Abdominal Exam: Soft, Normal Bowel Sounds. absent: Distended, Guarding, Tenderness Assessment and Plan - Assessment and Plan (Free Text) Assessment: This is a 57yF with pmhx of DM, PVD with vascular intervention and left big toe amputation, mechanical mitral and aortic valve replacement on coumadin, chronic anemia from GI blood loss s/p resection of distal small bowel, chronic valvular hemolysis presenting with anemia. 1. Anemia 2. Coagulopathy, elevated INR 3. Hx of Small bowel GI bleeding s/p resection 4. Hx of mechanical mitral/aortic valve on OAC 5. Hx of chronic valvular hemolysis Plan: -Continue supportive care -No active GI bleeding, Hgb stable at 7.8 s/p 3U PRBCs -Monitor H/H and transfuse as needed -Avoid NSAIDs -Continue PPI daily -Elevated INR better now at 3.0 -Close management of OAC -Appreciate Hematology consultation -Pt with no overt GI bleeding at this time, no plan for nay GI intervention, if develops GI bleeding will reconsider -Please call with any questions or concerns
[2018-01-11] MEDS: (Novolin R) Insulin Human Regular 100 units/ml vial SC SCH ×4 (08:28→21:57)
[2018-01-11] MEDS: Potassium Chloride 20 mEq ER Tab PO SCH (10:09)
[2018-01-11] MEDS: Metoprolol Succinate 50 mg XL Tab PO SCH (10:09)
[2018-01-11] MEDS: Pantoprazole 40 mg EC Tab PO SCH (10:09)
[2018-01-11] MEDS: Theophylline 300mg ER 24 hrs Cap PO SCH (10:09)
[2018-01-11] MEDS: XULTOPHY SC SCH (10:10)
[2018-01-11 11:26] LABS: MEAN CELL VOLUME 86.8 fL (81.0-99.0); MEAN CORPUSCULAR HEMOGLOBIN 29.4 pg (27.0-31.0); MEAN CORPUSCULAR HGB CONC 33.8 g/dL (33.0-37.0); RBC 2.71 Mil/uL (3.80-5.20); RED CELL DISTRIBUTION WIDTH 15.8 % (11.5-14.5); WHITE BLOOD COUNT 6.9 K/uL (4.8-10.8)
--- NOTE | 2018-01-11 11:48 | CP.PCM.PN ---
<Adelita Scales - Last Filed: 01/11/18 11:44> Subjective - Date & Time of Evaluation Date of Evaluation: 01/11/18 Time of Evaluation: 06:30 - Subjective Subjective: GI Fellow PGY4 Progress Note Pt seen and evaluated at bedside, with no complaints, denies any rectal bleeding. Tolerating diet. ROS: A 12pt ROS was negative except as above. Objective - Vital Signs/Intake and Output Vital Signs (last 24 hours): Temp Pulse Resp BP Pulse Ox 98.9 F 87 20 126/65 99 01/11/18 00:10 01/11/18 00:10 01/11/18 00:10 01/11/18 00:10 01/11/18 00:10 Intake and Output: 01/11/18 01/11/18 06:59 18:59 Intake Total 560 Balance 560 - Medications Medications: Current Medications Amlodipine Besylate (Norvasc) 10 mg PO DAILY [facility] Last Admin: 01/11/18 10:09 Dose: 10 mg Folic Acid (Folic Acid) 1 mg PO DAILY [facility] Last Admin: 01/11/18 10:09 Dose: 1 mg Home Med (Patient's Own Injectable) 22 unit SC DAILY [facility] Last Admin: 01/11/18 10:10 Dose: 22 unit Hydrochlorothiazide (Hydrodiuril) 25 mg PO DAILY [facility] Last Admin: 01/11/18 10:09 Dose: 25 mg Insulin Human Regular (Novolin R) 0 unit SC [facility] PRN Reason: Protocol Last Admin: 01/11/18 08:28 Dose: 2 units Losartan Potassium (Cozaar) 100 mg PO DAILY [facility] Last Admin: 01/11/18 10:09 Dose: 100 mg Metoprolol Succinate (Toprol Xl) 50 mg PO DAILY [facility] Last Admin: 01/11/18 10:09 Dose: 50 mg Pantoprazole Sodium (Protonix Ec Tab) 40 mg PO DAILY [facility] Last Admin: 01/11/18 10:09 Dose: 40 mg Phenytoin Sodium (Dilantin) 100 mg PO TID [facility] Last Admin: 01/11/18 10:09 Dose: 100 mg Potassium Chloride (K-Dur 20 Meq Er Tab) 20 meq PO DAILY [facility] Last Admin: 01/11/18 10:09 Dose: 20 meq Rosuvastatin Calcium (Crestor) 40 mg PO [facility] Last Admin: 01/10/18 22:07 Dose: 40 mg Theophylline (Jose C-24) 300 mg PO DAILY [facility] Last Admin: 01/11/18 10:09 Dose: 300 mg Tramadol HCl (Ultram) 50 mg PO Q6 PRN PRN Reason: pain Last Admin: 01/11/18 00:30 Dose: 50 mg - Labs Labs: 01/11/18 11:21 01/10/18 07:01 PT 20.3 SECONDS (9.7-12.2) H D 01/10/18 07:01 INR 1.9 D 01/10/18 07:01 APTT 55 SECONDS (21-34) H 01/07/18 09:51 - Constitutional Appears: Non-toxic, No Acute Distress - Head Exam Head Exam: ATRAUMATIC, NORMAL INSPECTION, NORMOCEPHALIC - Eye Exam Eye Exam: EOMI, Normal appearance, PERRL - ENT Exam ENT Exam: Mucous Membranes Moist - Neck Exam Neck Exam: Full ROM, Normal Inspection - Respiratory Exam Respiratory Exam: Clear to Ausculation Bilateral, NORMAL BREATHING PATTERN - Cardiovascular Exam Cardiovascular Exam: REGULAR RHYTHM, RRR, +S1 - GI/Abdominal Exam GI & Abdominal Exam: Soft, Normal Bowel Sounds - Rectal Exam Rectal Exam: Deferred - Extremities Exam Extremities Exam: Full ROM, Normal Inspection - Back Exam Back Exam: NORMAL INSPECTION - Neurological Exam Neurological Exam: Alert, Awake, Oriented x3 - Psychiatric Exam Psychiatric exam: Normal Affect, Normal Mood - Skin Skin Exam: Dry, Intact, Normal Color, Warm Assessment and Plan - Assessment and Plan (Free Text) Assessment: This is a 57yF with pmhx of DM, PVD with vascular intervention and left big toe amputation, mechanical mitral and aortic valve replacement on coumadin, chronic anemia from GI blood loss s/p resection of distal small bowel, chronic valvular hemolysis presenting with anemia. 1. Anemia 2. Coagulopathy, elevated INR 3. Hx of Small bowel GI bleeding s/p resection 4. Hx of mechanical mitral/aortic valve on OAC 5. Hx of chronic valvular hemolysis Plan: -Continue supportive care -No active GI bleeding, Hgb stable at 8.0 s/p 3U PRBCs -Monitor H/H and transfuse as needed -Avoid NSAIDs -Continue PPI daily -Elevated INR better now at 1.9 -Close management of OAC -Appreciate Hematology consultation -Pt with no overt GI bleeding at this time, no plan for any GI intervention -Outpt colonoscopy -Please call with any questions or concerns <Urban Cesar - Last Filed: 01/11/18 12:58> Objective - Vital Signs/Intake and Output Vital Signs (last 24 hours): Temp Pulse Resp BP Pulse Ox 98.9 F 87 20 126/65 99 01/11/18 00:10 01/11/18 00:10 01/11/18 00:10 01/11/18 00:10 01/11/18 00:10 Intake and Output: 01/11/18 01/11/18 06:59 18:59 Intake Total 560 Balance 560 - Medications Medications: Current Medications Amlodipine Besylate (Norvasc) 10 mg PO DAILY [facility] Last Admin: 01/11/18 10:09 Dose: 10 mg Folic Acid (Folic Acid) 1 mg PO DAILY [facility] Last Admin: 01/11/18 10:09 Dose: 1 mg Home Med (Patient's Own Injectable) 22 unit SC DAILY [facility] Last Admin: 01/11/18 10:10 Dose: 22 unit Hydrochlorothiazide (Hydrodiuril) 25 mg PO DAILY [facility] Last Admin: 01/11/18 10:09 Dose: 25 mg Insulin Human Regular (Novolin R) 0 unit SC [facility] PRN Reason: Protocol Last Admin: 01/11/18 12:21 Dose: 3 units Losartan Potassium (Cozaar) 100 mg PO DAILY [facility] Last Admin: 01/11/18 10:09 Dose: 100 mg Metoprolol Succinate (Toprol Xl) 50 mg PO DAILY [facility] Last Admin: 01/11/18 10:09 Dose: 50 mg Pantoprazole Sodium (Protonix Ec Tab) 40 mg PO DAILY [facility] Last Admin: 01/11/18 10:09 Dose: 40 mg Phenytoin Sodium (Dilantin) 100 mg PO TID [facility] Last Admin: 01/11/18 10:09 Dose: 100 mg Potassium Chloride (K-Dur 20 Meq Er Tab) 20 meq PO DAILY [facility] Last Admin: 01/11/18 10:09 Dose: 20 meq Rosuvastatin Calcium (Crestor) 40 mg PO HS [facility] Last Admin: 01/10/18 22:07 Dose: 40 mg Theophylline (Jose C-24) 300 mg PO DAILY [facility] Last Admin: 01/11/18 10:09 Dose: 300 mg Tramadol HCl (Ultram) 50 mg PO Q6 PRN PRN Reason: pain Last Admin: 01/11/18 00:30 Dose: 50 mg - Labs Labs: 01/11/18 11:21 01/10/18 07:01 PT 20.3 SECONDS (9.7-12.2) H D 01/10/18 07:01 INR 1.9 D 01/10/18 07:01 APTT 55 SECONDS (21-34) H 01/07/18 09:51 Attending/Attestation - Attestation I have personally seen and examined this patient.: Yes I have fully participated in the care of the patient.: Yes I have reviewed all pertinent clinical information, including history, physical exam and plan: Yes Notes (Text): 01/11/18 12:56 I have seen and examined patient with GI fellow. No acute events overnight, she is seen resting in chair next to bed. She denies abdominal pain, nausea, vomiting, fever/chills. She had one dark colored bowel movement this morning, tolerating PO liquids without difficulty. Review of vitals from today are normal. DM PVD AVR on coumadin Iron deficiency anemia - Advance diet as tolerated - H/H stable, s/p PRBC transfusion - Worsening anemia with positive hemolysis on bloodwork - follow up hematology recommendations - Continue with PPI therapy - Patient may benefit from outpatient capsule endoscopy study which can be electively scheduled. Currently no further planned GI intervention, will sign off case. Please reconsult as necessary, thank you.
--- NOTE | 2018-01-11 19:02 | CP.PCM.PN ---
Subjective - Date & Time of Evaluation Date of Evaluation: 01/11/18 Time of Evaluation: 07:40 - Subjective Subjective: clinically same Objective - Vital Signs/Intake and Output Vital Signs (last 24 hours): Temp Pulse Resp BP Pulse Ox 98.6 F 91 H 20 127/74 98 01/11/18 16:33 01/11/18 16:33 01/11/18 16:33 01/11/18 16:33 01/11/18 16:33 Intake and Output: 01/11/18 01/12/18 18:59 06:59 Intake Total 500 Balance 500 - Medications Medications: Current Medications Amlodipine Besylate (Norvasc) 10 mg PO DAILY [facility] Last Admin: 01/11/18 10:09 Dose: 10 mg Folic Acid (Folic Acid) 1 mg PO DAILY [facility] Last Admin: 01/11/18 10:09 Dose: 1 mg Home Med (Patient's Own Injectable) 22 unit SC DAILY [facility] Last Admin: 01/11/18 10:10 Dose: 22 unit Hydrochlorothiazide (Hydrodiuril) 25 mg PO DAILY [facility] Last Admin: 01/11/18 10:09 Dose: 25 mg Insulin Human Regular (Novolin R) 0 unit SC ACHS [facility] PRN Reason: Protocol Last Admin: 01/11/18 17:10 Dose: 3 units Losartan Potassium (Cozaar) 100 mg PO DAILY [facility] Last Admin: 01/11/18 10:09 Dose: 100 mg Metoprolol Succinate (Toprol Xl) 50 mg PO DAILY [facility] Last Admin: 01/11/18 10:09 Dose: 50 mg Pantoprazole Sodium (Protonix Ec Tab) 40 mg PO DAILY [facility] Last Admin: 01/11/18 10:09 Dose: 40 mg Phenytoin Sodium (Dilantin) 100 mg PO TID [facility] Last Admin: 01/11/18 18:31 Dose: 100 mg Potassium Chloride (K-Dur 20 Meq Er Tab) 20 meq PO DAILY [facility] Last Admin: 01/11/18 10:09 Dose: 20 meq Rosuvastatin Calcium (Crestor) 40 mg PO HS [facility] Last Admin: 01/10/18 22:07 Dose: 40 mg Theophylline (Jose C-24) 300 mg PO DAILY [facility] Last Admin: 01/11/18 10:09 Dose: 300 mg Tramadol HCl (Ultram) 50 mg PO Q6 PRN PRN Reason: pain Last Admin: 01/11/18 00:30 Dose: 50 mg - Labs Labs: 01/11/18 11:21 01/10/18 07:01 PT 20.3 SECONDS (9.7-12.2) H D 01/10/18 07:01 INR 1.9 D 01/10/18 07:01 APTT 55 SECONDS (21-34) H 01/07/18 09:51 - Constitutional Appears: Well - Head Exam Head Exam: ATRAUMATIC, NORMAL INSPECTION, NORMOCEPHALIC - Eye Exam Eye Exam: EOMI, Normal appearance, PERRL Pupil Exam: NORMAL ACCOMODATION, PERRL - ENT Exam ENT Exam: Mucous Membranes Moist, Normal Exam - Neck Exam Neck Exam: Full ROM, Normal Inspection. absent: Lymphadenopathy - Respiratory Exam Respiratory Exam: Decreased Breath Sounds - Cardiovascular Exam Cardiovascular Exam: REGULAR RHYTHM, +S1, +S2 - GI/Abdominal Exam GI & Abdominal Exam: Soft, Diminished Bowel Sounds - Rectal Exam Rectal Exam: Deferred Assessment and Plan (1) GI bleed Status: Acute (2) Symptomatic anemia Status: Acute (3) Amputation of fifth toe, left, traumatic Status: Acute (4) Anemia Status: Acute (5) Coagulopathy Status: Acute (6) S/P MVR (mitral valve replacement) Status: Acute (7) Small intestinal hemorrhage requiring more than four units of blood in 24 hours, admission to ICU, or surgery Status: Acute (8) Toe gangrene Status: Acute (9) Uncontrolled hypertension Status: Acute (10) CAD (coronary artery disease) Status: Chronic (11) Dyslipidemia Status: Chronic (12) PVD (peripheral vascular disease) Status: Chronic (13) Uncontrolled diabetes mellitus Status: Chronic
--- NOTE | 2018-01-11 19:21 | PN ---
DATE: 01/11/2018 SUBJECTIVE: The patient denies any melena. Today, she denies any chest pain or shortness of breath. PHYSICAL EXAMINATION: VITAL SIGNS: Blood pressure 126/65, heart rate 87, temperature 98.9, respirations 20. HEENT: Pale conjunctivae. CHEST: Clear. HEART: S1 and S2, regular. EXTREMITIES: Left big toe amputation. LABORATORY DATA: Hemoglobin and hematocrit 8 and 23.6. White count and platelet count are within normal limits. Today's blood sugars are 161 and 278. ASSESSMENT: 1. Recurrent bleeding. 2. Status post iatrogenic coagulopathy. 3. Status post mechanical aortic and mitral valve replacement. 4. Peripheral vascular disease status post left big toe amputation. RECOMMENDATIONS: I did review the gastroenterology followup and the recommendation was to advance diet as tolerated. Follow up with Hematology as recommended and continue PPI therapy. The patient may benefit from outpatient capsule endoscopy study, which can be electively scheduled. Reconsult if necessary. Continue current Cozaar at 100 mg once a day, Crestor 40 mg once a day, Dilantin 100 mg once a day, folic acid 1 mg once a day, hydrochlorothiazide 25 mg once a day, K-Dur 20 mEq once a day, Norvasc 10 mg once a day, Toprol XL at 50 mg once a day, Jose C-Dur 300 mg once a day. I will start Coumadin at mg p.o. today if cleared by suture winder hand. Kraig Sheldon MD
[2018-01-12 07:40] LABS: INR 1.1; PROTHROMBIN TIME 12.5 SECONDS (9.7-12.2)
[2018-01-12 08:19] LABS: BASO # 0.1 K/uL (0.0-0.2); BASO % 1.3 % (0.0-2.0); EOS # 0.2 K/uL (0.0-0.7); EOS % 2.7 % (0.0-4.0); LYMPH # 1.5 K/uL (1.0-4.3); LYMPH % 24.2 % (20.0-40.0); MEAN CORPUSCULAR HEMOGLOBIN 28.6 pg (27.0-31.0); MEAN CORPUSCULAR HGB CONC 32.9 g/dL (33.0-37.0); MEAN PLATELET VOLUME 7.4 fL (7.2-11.7); MONO # 0.4 K/uL (0.0-0.8); MONO % 6.9 % (0.0-10.0); NEUT # 3.9 K/uL (1.8-7.0); NEUT % 64.9 % (50.0-75.0); RBC 2.46 Mil/uL (3.80-5.20)
[2018-01-12 08:32] LABS: BLOOD UREA NITROGEN 17 mg/dL (7-17); CALCIUM 8.3 mg/dl (8.6-10.4); GFR AFRICAN-AMERICAN > 60; GFR NON-AFRICAN AMERICAN 57
[2018-01-12] MEDS: (Novolin R) Insulin Human Regular 100 units/ml vial SC SCH ×4 (08:42→22:26)
--- NOTE | 2018-01-12 09:02 | CP.PCM.PN ---
Subjective - Date & Time of Evaluation Date of Evaluation: 01/12/18 Time of Evaluation: 09:02 - Subjective Subjective: Progress Note for Dr. Joanna Zhou Patient seen and examined at bedside. Nursing staff reports of dark stool in patient's BM. Patient is resting in bed comfortably. She reports to have good appetite and feeling fine. She does complains of left toe pain after dressing change by podiatry. She denies having fatigue, dizziness, headache, fever, chills, shortness of breath, chest pain, nausea ,vomiting, diarrhea or dysuria. Objective - Vital Signs/Intake and Output Vital Signs (last 24 hours): Temp Pulse Resp BP Pulse Ox 99.0 F 94 H 20 111/68 100 01/12/18 00:00 01/12/18 00:00 01/12/18 00:00 01/12/18 00:00 01/12/18 00:00 Intake and Output: 01/12/18 01/12/18 06:59 18:59 Intake Total 690 Balance 690 - Medications Medications: Current Medications Amlodipine Besylate (Norvasc) 10 mg PO DAILY [facility] Last Admin: 01/11/18 10:09 Dose: 10 mg Folic Acid (Folic Acid) 1 mg PO DAILY [facility] Last Admin: 01/11/18 10:09 Dose: 1 mg Home Med (Patient's Own Injectable) 22 unit SC DAILY [facility] Last Admin: 01/11/18 10:10 Dose: 22 unit Hydrochlorothiazide (Hydrodiuril) 25 mg PO DAILY [facility] Last Admin: 01/11/18 10:09 Dose: 25 mg Insulin Human Regular (Novolin R) 0 unit SC [facility] PRN Reason: Protocol Last Admin: 01/12/18 08:42 Dose: 3 units Losartan Potassium (Cozaar) 100 mg PO DAILY [facility] Last Admin: 01/11/18 10:09 Dose: 100 mg Metoprolol Succinate (Toprol Xl) 50 mg PO DAILY [facility] Last Admin: 01/11/18 10:09 Dose: 50 mg Pantoprazole Sodium (Protonix Ec Tab) 40 mg PO DAILY [facility] Last Admin: 01/11/18 10:09 Dose: 40 mg Phenytoin Sodium (Dilantin) 100 mg PO TID [facility] Last Admin: 01/11/18 18:31 Dose: 100 mg Potassium Chloride (K-Dur 20 Meq Er Tab) 20 meq PO DAILY [facility] Last Admin: 01/11/18 10:09 Dose: 20 meq Rosuvastatin Calcium (Crestor) 40 mg PO HS [facility] Last Admin: 01/11/18 21:58 Dose: 40 mg Theophylline (Jose C-24) 300 mg PO DAILY [facility] Last Admin: 01/11/18 10:09 Dose: 300 mg Tramadol HCl (Ultram) 50 mg PO Q6 PRN PRN Reason: pain Last Admin: 01/11/18 22:03 Dose: 50 mg - Labs Labs: 01/12/18 08:16 01/12/18 08:16 PT 12.5 SECONDS (9.7-12.2) H D 01/12/18 07:23 INR 1.1 D 01/12/18 07:23 APTT 55 SECONDS (21-34) H 01/07/18 09:51 - Additional Findings Additional findings: - Constitutional Appears: Non-toxic, No Acute Distress - Head Exam Head Exam: ATRAUMATIC, NORMAL INSPECTION, NORMOCEPHALIC - Eye Exam Eye Exam: EOMI, Normal appearance, PERRL Pupil Exam: PERRL - ENT Exam ENT Exam: Mucous Membranes Moist, Normal Exam - Neck Exam Neck exam: Positive for: Full Rom, Normal Inspection - Respiratory Exam Respiratory Exam: Clear to Auscultation Bilateral, NORMAL BREATHING PATTERN - Cardiovascular Exam Cardiovascular Exam: RRR, +S1, +S2 - GI/Abdominal Exam GI & Abdominal Exam: Firm, Normal Bowel Sounds, Soft. absent: Organomegaly, Tenderness - Extremities Exam Extremities exam: Positive for: full ROM, normal inspection Additional comments: Left great toe dressing dry, clean and intact - Back Exam Back exam: NORMAL INSPECTION - Neurological Exam Neurological exam: Alert, Oriented x3 - Psychiatric Exam Psychiatric exam: Normal Affect, Normal Mood - Skin Skin Exam: Dry, Intact, Normal Color Assessment and Plan - Assessment and Plan (Free Text) Assessment: Anemia, microcytic -Multifactorial: vavular hemolysis and GI blood loss -S/P 3u PRBC transfusion -Hgb 7.0 today, one unit PRBC ordered to be transfused -Stool occult positive x2 -Ferritin 110 -Follow heme/onc and GI recommendations History of valve replacement -Cardiology consulted, follow recommendations -Coumadin 4mg given last night -INR 1.1 today PVD s/p left hallux amputation -Podiatry and wound care consulted -Tramadol 50mg po Q6 DM -ISS -Finger stick ACHS -Hypoglycemia protocol HTN -Amlodipine 10mg -HCTZ 25mg -Losartan 100mg -Metoprolol 50mg PO HLD -Crestor 40mg po Prophylactic measures -SCD -VTE contraindication due to anemia -Protoxin All management per Dr. Zhou
[2018-01-12] MEDS: Potassium Chloride 20 mEq ER Tab PO SCH (10:12)
[2018-01-12] MEDS: Pantoprazole 40 mg EC Tab PO SCH (10:12)
[2018-01-12] MEDS: Metoprolol Succinate 50 mg XL Tab PO SCH (10:13)
[2018-01-12] MEDS: Theophylline 300mg ER 24 hrs Cap PO SCH (10:13)
--- NOTE | 2018-01-12 10:19 | CP.PCM.PN ---
Subjective - Date & Time of Evaluation Date of Evaluation: 01/12/18 Time of Evaluation: 07:40 - Subjective Subjective: Patient seen and examined at bedside. Nursing staff reports of dark stool in patient's BM. Patient is resting in bed comfortably. She reports to have good appetite and feeling fine. She does complains of left toe pain after dressing change by podiatry. She denies having fatigue, dizziness, headache, fever, chills, shortness of breath, chest pain, nausea ,vomiting, diarrhea or dysuria. Objective - Vital Signs/Intake and Output Vital Signs (last 24 hours): Temp Pulse Resp BP Pulse Ox 99.0 F 94 H 20 111/68 100 01/12/18 00:00 01/12/18 00:00 01/12/18 00:00 01/12/18 00:00 01/12/18 00:00 Intake and Output: 01/12/18 01/12/18 06:59 18:59 Intake Total 690 Balance 690 - Medications Medications: Current Medications Amlodipine Besylate (Norvasc) 10 mg PO DAILY [facility] Last Admin: 01/12/18 10:13 Dose: 10 mg Folic Acid (Folic Acid) 1 mg PO DAILY [facility] Last Admin: 01/12/18 10:13 Dose: 1 mg Home Med (Patient's Own Injectable) 22 unit SC DAILY [facility] Last Admin: 01/11/18 10:10 Dose: 22 unit Hydrochlorothiazide (Hydrodiuril) 25 mg PO DAILY [facility] Last Admin: 01/12/18 10:13 Dose: 25 mg Insulin Human Regular (Novolin R) 0 unit SC [facility] PRN Reason: Protocol Last Admin: 01/12/18 08:42 Dose: 3 units Losartan Potassium (Cozaar) 100 mg PO DAILY [facility] Last Admin: 01/12/18 10:13 Dose: 100 mg Metoprolol Succinate (Toprol Xl) 50 mg PO DAILY [facility] Last Admin: 01/12/18 10:13 Dose: 50 mg Pantoprazole Sodium (Protonix Ec Tab) 40 mg PO DAILY [facility] Last Admin: 01/12/18 10:12 Dose: 40 mg Phenytoin Sodium (Dilantin) 100 mg PO TID [facility] Last Admin: 01/12/18 10:12 Dose: 100 mg Potassium Chloride (K-Dur 20 Meq Er Tab) 20 meq PO DAILY [facility] Last Admin: 01/12/18 10:12 Dose: 20 meq Rosuvastatin Calcium (Crestor) 40 mg PO HS [facility] Last Admin: 01/11/18 21:58 Dose: 40 mg Theophylline (Jose C-24) 300 mg PO DAILY [facility] Last Admin: 01/12/18 10:13 Dose: 300 mg Tramadol HCl (Ultram) 50 mg PO Q6 PRN PRN Reason: pain Last Admin: 01/11/18 22:03 Dose: 50 mg - Labs Labs: 01/12/18 08:16 01/12/18 08:16 PT 12.5 SECONDS (9.7-12.2) H D 01/12/18 07:23 INR 1.1 D 01/12/18 07:23 APTT 55 SECONDS (21-34) H 01/07/18 09:51 - Constitutional Appears: Well - Head Exam Head Exam: ATRAUMATIC, NORMAL INSPECTION, NORMOCEPHALIC - Eye Exam Eye Exam: EOMI, Normal appearance, PERRL Pupil Exam: NORMAL ACCOMODATION, PERRL - ENT Exam ENT Exam: Mucous Membranes Moist, Normal Exam - Neck Exam Neck Exam: Full ROM, Normal Inspection. absent: Lymphadenopathy - Respiratory Exam Respiratory Exam: Decreased Breath Sounds - Cardiovascular Exam Cardiovascular Exam: REGULAR RHYTHM, +S1, +S2 - GI/Abdominal Exam GI & Abdominal Exam: Soft, Diminished Bowel Sounds - Rectal Exam Rectal Exam: Deferred Assessment and Plan (1) GI bleed Status: Acute (2) Symptomatic anemia Status: Acute (3) Amputation of fifth toe, left, traumatic Status: Acute (4) Anemia Status: Acute (5) Coagulopathy Status: Acute (6) S/P MVR (mitral valve replacement) Status: Acute (7) Small intestinal hemorrhage requiring more than four units of blood in 24 hours, admission to ICU, or surgery Status: Acute (8) Toe gangrene Status: Acute (9) Uncontrolled hypertension Status: Acute (10) CAD (coronary artery disease) Status: Chronic (11) Dyslipidemia Status: Chronic (12) PVD (peripheral vascular disease) Status: Chronic (13) Uncontrolled diabetes mellitus Status: Chronic - Assessment and Plan (Free Text) Plan: Anemia, microcytic -Multifactorial: vavular hemolysis and GI blood loss -S/P 3u PRBC transfusion -Hgb 7.0 today, one unit PRBC ordered to be transfused -Stool occult positive x2 -Ferritin 110 -Follow heme/onc and GI recommendations History of valve replacement -Cardiology consulted, follow recommendations -Coumadin 4mg given last night -INR 1.1 today PVD s/p left hallux amputation -Podiatry and wound care consulted -Tramadol 50mg po Q6 DM -ISS -Finger stick ACHS -Hypoglycemia protocol HTN -Amlodipine 10mg -HCTZ 25mg -Losartan 100mg -Metoprolol 50mg PO HLD -Crestor 40mg po Prophylactic measures -SCD -VTE contraindication due to anemia -Protoxin
--- NOTE | 2018-01-12 10:23 | CP.PCM.CON ---
History of Present Illness - History of Present Illness History of Present Illness: Podiatry consult notes for attending Sheldon Yousif A 57 Y/O F patient with PMH of mechanical mitral valve replacement, on Cumadin anticoagulant, DM and PVD. Podiatry consulted for an open wound at the site of L hallux amputation. Patient seen and evaluated at the bed side. Patient is AAO X # and is not in acute distress. Patient is well known to Ravi Yousif DPM and F/U with him at the wound care center at [place]. Patiet states that it' s a chronic non healing wound but notices improvement regarding the wound size. Patient states that she is feeling moderate pain at the wound site. Patient denies any other pedal complaint. Patient denies any recent F/N/V/C or SOB. Review of Systems - Constitutional Constitutional: As Per HPI - Cardiovascular Cardiovascular: As Per HPI Past Patient History - Past Medical History & Family History Past Medical History?: Yes - Past Social History Smoking Status: Light Smoker < 10 Cigarettes Daily - CARDIAC Hx Hypercholesterolemia: Yes Hx Hypertension: Yes - PULMONARY Hx Asthma: Yes - NEUROLOGICAL Hx Seizures: Yes - HEENT Hx HEENT Problems: No Other/Comment: wears glasses - RENAL Hx Chronic Kidney Disease: No - ENDOCRINE/METABOLIC Hx Diabetes Mellitus Type 2: Yes - HEMATOLOGICAL/ONCOLOGICAL Hx Anemia: Yes - INTEGUMENTARY Hx Dermatological Problems: No - MUSCULOSKELETAL/RHEUMATOLOGICAL Hx Falls: No - GASTROINTESTINAL Hx Gastritis: Yes - GENITOURINARY/GYNECOLOGICAL Hx Genitourinary Disorders: No - PSYCHIATRIC Hx Substance Use: No - SURGICAL HISTORY Hx Amputation: Yes (left big toe amputation 09/2017) Hx Valve Replacement: Yes Other/Comment: left leg stent placement, lt foot 1st digit amputation, small bowel sx - ANESTHESIA Hx Anesthesia: Yes Hx Anesthesia Reactions: No Meds Allergies/Adverse Reactions: Allergies Allergy/AdvReac Type Severity Reaction Status Date / Time No Known Allergies Allergy Verified 10/14/17 12:13 - Medications Medications: Current Medications Amlodipine Besylate (Norvasc) 10 mg PO DAILY [facility] Last Admin: 01/11/18 10:09 Dose: 10 mg Folic Acid (Folic Acid) 1 mg PO DAILY [facility] Last Admin: 01/11/18 10:09 Dose: 1 mg Home Med (Patient's Own Injectable) 22 unit SC DAILY [facility] Last Admin: 01/11/18 10:10 Dose: 22 unit Hydrochlorothiazide (Hydrodiuril) 25 mg PO DAILY [facility] Last Admin: 01/11/18 10:09 Dose: 25 mg Insulin Human Regular (Novolin R) 0 unit SC ACHS [facility] PRN Reason: Protocol Last Admin: 01/12/18 08:42 Dose: 3 units Losartan Potassium (Cozaar) 100 mg PO DAILY [facility] Last Admin: 01/11/18 10:09 Dose: 100 mg Metoprolol Succinate (Toprol Xl) 50 mg PO DAILY [facility] Last Admin: 01/11/18 10:09 Dose: 50 mg Pantoprazole Sodium (Protonix Ec Tab) 40 mg PO DAILY [facility] Last Admin: 01/11/18 10:09 Dose: 40 mg Phenytoin Sodium (Dilantin) 100 mg PO TID [facility] Last Admin: 01/11/18 18:31 Dose: 100 mg Potassium Chloride (K-Dur 20 Meq Er Tab) 20 meq PO DAILY [facility] Last Admin: 01/11/18 10:09 Dose: 20 meq Rosuvastatin Calcium (Crestor) 40 mg PO HS [facility] Last Admin: 01/11/18 21:58 Dose: 40 mg Theophylline (Jose C-24) 300 mg PO DAILY [facility] Last Admin: 01/11/18 10:09 Dose: 300 mg Tramadol HCl (Ultram) 50 mg PO Q6 PRN PRN Reason: pain Last Admin: 01/11/18 22:03 Dose: 50 mg Physical Exam - Constitutional Appears: Non-toxic, No Acute Distress - Head Exam Head Exam: ATRAUMATIC, NORMOCEPHALIC - Extremities Exam Additional comments: L lower extremity focused exam: Vasc: DP/PT non palpable, Cap refill < 3 sec in all digits, Temp gradient warm to cool. No edema. Neuro: Gross sensation intact, Protective sensation grossly diminished. Derm: At the site of L hallux amputation there is an open wound linear in shape [id number]. with minimal drainage, no malodor, minimal erythema around the edges. Edges are macerated, base is fibrotic 100%. No undermining, no tracking and no probing to bone. No signs of active bacterial infection. MSK: Pain on palpating the L hallux stump. - Psychiatric Exam Psychiatric exam: Normal Affect, Normal Mood - Skin Skin Exam: Dry Results - Vital Signs Recent Vital Signs: Last Vital Signs Temp 99.0 F 01/12/18 00:00 Pulse 94 H 01/12/18 00:00 Resp 20 01/12/18 00:00 BP 111/68 01/12/18 00:00 Pulse Ox 100 01/12/18 00:00 - Labs Result Diagrams: 01/12/18 08:16 01/12/18 08:16 Labs: Laboratory Results - last 24 hr 01/11/18 01/11/18 01/11/18 11:14 11:21 16:38 WBC 6.9 RBC 2.71 L Hgb 8.0 L Hct 23.6 L MCV 86.8 MCH 29.4 MCHC 33.8 RDW 15.8 H Plt Count 266 MPV 8.0 Neut % (Auto) Lymph % (Auto) [place] % (Auto) Eos % (Auto) Baso % (Auto) Neut # (Auto) Lymph # (Auto) [place] # (Auto) Eos # (Auto) Baso # (Auto) PT INR Sodium Potassium Chloride Carbon Dioxide Anion Gap BUN Creatinine Est GFR ( Amer) Est GFR (Non-Af Amer) POC Glucose (mg/dL) 207 H 224 H Random Glucose Calcium Blood Type Antibody Screen 01/11/18 01/12/18 01/12/18 21:24 07:12 07:23 WBC RBC Hgb Hct MCV MCH MCHC RDW Plt Count MPV Neut % (Auto) Lymph % (Auto) [place] % (Auto) Eos % (Auto) Baso % (Auto) Neut # (Auto) Lymph # (Auto) [place] # (Auto) Eos # (Auto) Baso # (Auto) PT 12.5 H D INR 1.1 D Sodium Potassium Chloride Carbon Dioxide Anion Gap BUN Creatinine Est GFR ( Amer) Est GFR (Non-Af Amer) POC Glucose (mg/dL) 264 H 207 H Random Glucose Calcium Blood Type Antibody Screen 01/12/18 01/12/18 01/12/18 08:16 08:16 09:17 WBC 6.0 RBC 2.46 L Hgb 7.0 L Hct 21.4 L MCV 87.0 MCH 28.6 MCHC 32.9 L RDW 16.0 H Plt Count 255 MPV 7.4 Neut % (Auto) 64.9 Lymph % (Auto) 24.2 [place] % (Auto) 6.9 Eos % (Auto) 2.7 Baso % (Auto) 1.3 Neut # (Auto) 3.9 Lymph # (Auto) 1.5 [place] # (Auto) 0.4 Eos # (Auto) 0.2 Baso # (Auto) 0.1 PT INR Sodium 140 Potassium 3.9 Chloride 107 Carbon Dioxide 25 Anion Gap 12 BUN 17 Creatinine 1.0 Est GFR ( Amer) > 60 Est GFR (Non-Af Amer) 57 POC Glucose (mg/dL) Random Glucose 172 H Calcium 8.3 L Blood Type A POSITIVE Antibody Screen Negative Assessment & Plan - Assessment and Plan (Free Text) Assessment: 57 Y/O F patient seen and evaluated at the bedside for L foot open wound at the site of amputated hallux. Plan: Patient was seen and evaluated at the bedside. Plan discussed with the attending DrSheldon DPM. Patient labs and vitals reviewed: afebrile and WBCs 6.0 Dressing was done for the open wound using Betadine, DSD, and diane. Discussed with the patient that the ulcer might need debridement tomorrow. All of patients questions and concerns answered Patient expressed verbal understanding. Thank you for consulting podiatry service. Podiatry will follow patient while in house - Date & Time Date: 01/12/18 Time: 10:40
[2018-01-12] MEDS: XULTOPHY SC SCH (11:00)
[2018-01-12] MEDS ORDERED: Glucagon Recombinant 1 mg Inj IM PRN (11:36)
[2018-01-12] MEDS ORDERED: Dextrose 50% SYRINGE Inj (50 ml) IVP PRN (11:36)
--- NOTE | 2018-01-12 21:08 | PN ---
DATE: 01/12/2018 SUBJECTIVE: The patient is currently receiving 1 unit of packed RBC transfusion. No reported melena. PHYSICAL EXAMINATION: VITAL SIGNS: Blood pressure 115/69, heart rate 96, temperature 98.3, and respirations 20. HEENT: Pale conjunctivae. CHEST: Clear. HEART: S1 and S2 regular. ABDOMEN: Soft. EXTREMITIES: No edema. LABORATORY DATA: Hemoglobin and hematocrit 7 and 21.4 this morning prior to the blood transfusion, which is a drop of 1 gm compared to yesterday. Today's INR is 1.1. Today's SMA-7 is within normal limits except for glucose of 172. ASSESSMENT: 1. Status post iatrogenic coagulopathy as well as lower gastrointestinal bleeding. 2. Status post aortic and mitral valve replacement. 3. Anemia. 4. Peripheral vascular disease, status post bilateral lower extremity stenting with recent left big toe amputation. RECOMMENDATIONS: Continue Cozaar 100 mg once a day, Crestor 40 mg once a day, Dilantin 100 mg t.i.d., hydrochlorothiazide 25 mg daily, K-Dur 20 mEq once a day, Norvasc 10 mg once a day, Jose C-Dur 300 mg daily, Toprol XL 50 mg once a day. I will order Coumadin 5 mg orally today. Kraig Sheldon MD
[2018-01-13 07:58] LABS: BASO % 0.5 % (0.0-2.0); EOS # 0.2 K/uL (0.0-0.7); EOS % 3.2 % (0.0-4.0); HEMOGLOBIN 8.5 g/dL (11.0-16.0); LYMPH # 1.6 K/uL (1.0-4.3); LYMPH % 24.5 % (20.0-40.0); MEAN CELL VOLUME 85.9 fL (81.0-99.0); MEAN CORPUSCULAR HEMOGLOBIN 28.8 pg (27.0-31.0); MEAN CORPUSCULAR HGB CONC 33.6 g/dL (33.0-37.0); MEAN PLATELET VOLUME 8.2 fL (7.2-11.7); MONO # 0.5 K/uL (0.0-0.8); MONO % 7.4 % (0.0-10.0); NEUT # 4.1 K/uL (1.8-7.0); NEUT % 64.4 % (50.0-75.0); NRBC % 0.1 % (0.0-2.0); RBC 2.94 Mil/uL (3.80-5.20); RED CELL DISTRIBUTION WIDTH 15.6 % (11.5-14.5); WHITE BLOOD COUNT 6.4 K/uL (4.8-10.8)
[2018-01-13 08:00] LABS: INR 1.1; PROTHROMBIN TIME 12.2 SECONDS (9.7-12.2)
[2018-01-13] MEDS: (Novolin R) Insulin Human Regular 100 units/ml vial SC SCH ×4 (08:19→21:38)
[2018-01-13] MEDS: Metoprolol Succinate 50 mg XL Tab PO SCH (11:00)
[2018-01-13] MEDS: Pantoprazole 40 mg EC Tab PO SCH (11:01)
[2018-01-13] MEDS: Potassium Chloride 20 mEq ER Tab PO SCH (11:05)
[2018-01-13] MEDS: XULTOPHY SC SCH (11:06)
--- NOTE | 2018-01-13 11:23 | CP.PCM.PN ---
Subjective - Date & Time of Evaluation Date of Evaluation: 01/13/18 Time of Evaluation: 11:19 - Subjective Subjective: 57 y/o female seen at bedside this morning regarding left hallux amputation site ulceration. States she is still having pain in the foot but it is controlled by medications. Denies any events overnight. Says she does not want any more tissue taken off from the wound site. Denies F/C/N/V/CP/SOB. Objective - Vital Signs/Intake and Output Vital Signs (last 24 hours): Temp Pulse Resp BP Pulse Ox 98.3 F 90 20 125/70 96 01/13/18 07:41 01/13/18 07:41 01/13/18 07:41 01/13/18 07:41 01/13/18 07:41 Intake and Output: 01/13/18 01/13/18 06:59 18:59 Intake Total 740 Balance 740 - Medications Medications: Current Medications Amlodipine Besylate (Norvasc) 10 mg PO DAILY [facility] Last Admin: 01/13/18 11:00 Dose: 10 mg Dextrose (Dextrose 50% Inj) 0 ml IVP .STAT PRN; Protocol PRN Reason: Hypoglycemia Protocol Dextrose (Glutose 15) 0 gm PO .ONCE PRN; Protocol PRN Reason: Hypoglycemia Protocol Folic Acid (Folic Acid) 1 mg PO DAILY [facility] Last Admin: 01/13/18 11:00 Dose: 1 mg Glucagon (Glucagen Diagnostic Kit) 0 mg IM .STAT PRN; Protocol PRN Reason: Hypoglycemia Protocol Home Med (Patient's Own Injectable) 22 unit SC DAILY [facility] Last Admin: 01/13/18 11:06 Dose: 22 unit Hydrochlorothiazide (Hydrodiuril) 25 mg PO DAILY [facility] Last Admin: 01/13/18 11:00 Dose: 25 mg Dextrose (Dextrose 5% In Water 1000 Ml) 1,000 mls @ 0 mls/hr IV .Q0M PRN; Protocol; Per Protocol PRN Reason: Hypoglycemia Protocol Insulin Human Regular (Novolin R) [address] [facility] PRN Reason: Protocol Last Admin: 01/13/18 08:19 Dose: 2 units Losartan Potassium (Cozaar) 100 mg PO DAILY [facility] Last Admin: 01/13/18 11:00 Dose: 100 mg Metoprolol Succinate (Toprol Xl) 50 mg PO DAILY [facility] Last Admin: 01/13/18 11:00 Dose: 50 mg Pantoprazole Sodium (Protonix Ec Tab) 40 mg PO DAILY [facility] Last Admin: 01/13/18 11:01 Dose: 40 mg Phenytoin Sodium (Dilantin) 100 mg PO TID [facility] Last Admin: 01/13/18 11:00 Dose: 100 mg Potassium Chloride (K-Dur 20 Meq Er Tab) 20 meq PO DAILY [facility] Last Admin: 01/13/18 11:05 Dose: 20 meq Rosuvastatin Calcium (Crestor) 40 mg PO HS [facility] Last Admin: 01/12/18 21:50 Dose: 40 mg Theophylline (Jose C-24) 300 mg PO DAILY [facility] Last Admin: 01/12/18 10:13 Dose: 300 mg Tramadol HCl (Ultram) 50 mg PO Q6 PRN PRN Reason: pain Last Admin: 01/13/18 08:39 Dose: 50 mg - Labs Labs: 01/13/18 07:46 01/12/18 08:16 PT 12.2 SECONDS (9.7-12.2) 01/13/18 07:46 INR 1.1 01/13/18 07:46 APTT 55 SECONDS (21-34) H 01/07/18 09:51 - Constitutional Appears: Well, Non-toxic, No Acute Distress - Extremities Exam Additional comments: Left lower extremity focused exam: Vasc: DP/PT non palpable pulses. Cap refill < 3 sec in all digits, Temp gradient warm to cool. No edema. Neuro: Gross sensation intact, Protective sensation grossly diminished. Derm: At the site of L hallux amputation there is an open wound linear in shape measuring approx 3.0cm x 1cm x 0.1cm with minimal drainage, no malodor, minimal erythema around the edges. Maceration to wound borders noted to have resolved.Wound base is 60% granular and 40% fibrotic in nature. No undermining, no tracking and no probing to bone. No signs of active bacterial infection. Ortho: Mild-moderate pain on palpation of the hallux stump ulceration site - Neurological Exam Neurological Exam: Alert, Awake, Oriented x3 - Psychiatric Exam Psychiatric exam: Normal Affect, Normal Mood Assessment and Plan - Assessment and Plan (Free Text) Assessment: 57 y/o F patient seen and evaluated at the bedside for L foot open wound at the site of amputated hallux Plan: Patient was seen and evaluated at the bedside Plan discussed with the attending Sheldon Yousif Dressing was done for the open wound using Betadine, DSD, and diane No further wound debridement to be done at this time Podiatry to continue with conservative local wound care Patient expressed verbal understanding Podiatry will follow patient while in house
[2018-01-13] MEDS: Theophylline 300mg ER 24 hrs Cap PO SCH (12:46)
--- NOTE | 2018-01-13 18:55 | PN ---
DATE: 01/13/2018 SUBJECTIVE: The patient denies any melena, dizziness, chest pain or shortness of breath. PHYSICAL EXAMINATION: VITAL SIGNS: Blood pressure 125/70, heart rate 90, temperature 98.3, respirations 20. HEENT: Pale conjunctivae. CHEST: Clear. HEART: S1 and S2 regular. ABDOMEN: Soft. EXTREMITIES: No edema. LABORATORY DATA: Today's blood sugars are 190, 151 and 277. Today's INR is 1.1. ASSESSMENT: 1. Status post lower gastrointestinal bleeding. 2. Status post iatrogenic coagulopathy. 3. History of mechanical mitral and aortic valve replacement. 4. Peripheral vascular disease, status post bilateral lower extremity stenting with recent left big toe amputation. RECOMMENDATIONS: Continue Cozaar 100 mg once a day, Crestor 40 mg once a day, Dilantin 100 mg t.i.d., Norvasc 10 mg once a day, K-Dur 20 mEq orally daily, Protonix 40 mg p.o. once a day, Toprol XL 50 mg once a day. I will order Coumadin 7.5 mg orally today. Kraig Sheldon MD
--- NOTE | 2018-01-13 19:02 | CP.PCM.PN ---
Subjective - Date & Time of Evaluation Date of Evaluation: 01/13/18 Time of Evaluation: 07:30 - Subjective Subjective: clinically same Objective - Vital Signs/Intake and Output Vital Signs (last 24 hours): Temp Pulse Resp BP Pulse Ox 98.3 F 91 H 20 110/50 L 98 01/13/18 16:00 01/13/18 16:00 01/13/18 16:00 01/13/18 16:00 01/13/18 16:00 Intake and Output: 01/13/18 01/14/18 18:59 06:59 Intake Total 360 Balance 360 - Medications Medications: Current Medications Amlodipine Besylate (Norvasc) 10 mg PO DAILY [facility] Last Admin: 01/13/18 11:00 Dose: 10 mg Dextrose (Dextrose 50% Inj) 0 ml IVP .STAT PRN; Protocol PRN Reason: Hypoglycemia Protocol Dextrose (Glutose 15) 0 gm PO .ONCE PRN; Protocol PRN Reason: Hypoglycemia Protocol Folic Acid (Folic Acid) 1 mg PO DAILY [facility] Last Admin: 01/13/18 11:00 Dose: 1 mg Glucagon (Glucagen Diagnostic Kit) 0 mg IM .STAT PRN; Protocol PRN Reason: Hypoglycemia Protocol Home Med (Patient's Own Injectable) 22 unit SC DAILY [facility] Last Admin: 01/13/18 11:06 Dose: 22 unit Hydrochlorothiazide (Hydrodiuril) 25 mg PO DAILY [facility] Last Admin: 01/13/18 11:00 Dose: 25 mg Dextrose (Dextrose 5% In Water 1000 Ml) 1,000 mls @ 0 mls/hr IV .Q0M PRN; Protocol; Per Protocol PRN Reason: Hypoglycemia Protocol Insulin Human Regular (Novolin R) 0 unit SC [facility] PRN Reason: Protocol Last Admin: 01/13/18 16:43 Dose: 3 units Losartan Potassium (Cozaar) 100 mg PO DAILY [facility] Last Admin: 01/13/18 11:00 Dose: 100 mg Metoprolol Succinate (Toprol Xl) 50 mg PO DAILY [facility] Last Admin: 01/13/18 11:00 Dose: 50 mg Pantoprazole Sodium (Protonix Ec Tab) 40 mg PO DAILY [facility] Last Admin: 01/13/18 11:01 Dose: 40 mg Phenytoin Sodium (Dilantin) 100 mg PO TID [facility] Last Admin: 01/13/18 17:26 Dose: 100 mg Potassium Chloride (K-Dur 20 Meq Er Tab) 20 meq PO DAILY [facility] Last Admin: 01/13/18 11:05 Dose: 20 meq Rosuvastatin Calcium (Crestor) 40 mg PO HS [facility] Last Admin: 01/12/18 21:50 Dose: 40 mg Theophylline (Jose C-24) 300 mg PO DAILY [facility] Last Admin: 01/13/18 12:46 Dose: 300 mg Tramadol HCl (Ultram) 50 mg PO Q6 PRN PRN Reason: pain Last Admin: 01/13/18 16:14 Dose: 50 mg - Labs Labs: 01/13/18 07:46 01/12/18 08:16 PT 12.2 SECONDS (9.7-12.2) 01/13/18 07:46 INR 1.1 01/13/18 07:46 APTT 55 SECONDS (21-34) H 01/07/18 09:51 - Constitutional Appears: Well - Head Exam Head Exam: ATRAUMATIC, NORMAL INSPECTION, NORMOCEPHALIC - Eye Exam Eye Exam: EOMI, Normal appearance, PERRL Pupil Exam: NORMAL ACCOMODATION, PERRL - ENT Exam ENT Exam: Mucous Membranes Moist, Normal Exam - Neck Exam Neck Exam: Full ROM, Normal Inspection. absent: Lymphadenopathy - Respiratory Exam Respiratory Exam: Decreased Breath Sounds - Cardiovascular Exam Cardiovascular Exam: REGULAR RHYTHM, +S1, +S2 - GI/Abdominal Exam GI & Abdominal Exam: Soft, Diminished Bowel Sounds - Rectal Exam Rectal Exam: Deferred Assessment and Plan (1) GI bleed Status: Acute (2) Symptomatic anemia Status: Acute (3) Amputation of fifth toe, left, traumatic Status: Acute (4) Anemia Status: Acute (5) Coagulopathy Status: Acute (6) S/P MVR (mitral valve replacement) Status: Acute (7) Small intestinal hemorrhage requiring more than four units of blood in 24 hours, admission to ICU, or surgery Status: Acute (8) Toe gangrene Status: Acute (9) Uncontrolled hypertension Status: Acute (10) CAD (coronary artery disease) Status: Chronic (11) Dyslipidemia Status: Chronic (12) PVD (peripheral vascular disease) Status: Chronic (13) Uncontrolled diabetes mellitus Status: Chronic - Assessment and Plan (Free Text) Plan: Continue same medicines continue phenytoin Discussed with Dr. José carvalho who signed off on the case Hemoglobin is also given 1 unit of PRBCs Hemoglobin has gone up to 8.5 We will repeat the CBC CMP Spoke to the patient Follow-up with the consultants
--- NOTE | 2018-01-13 22:57 | CP.PCM.PN ---
Subjective - Date & Time of Evaluation Date of Evaluation: 01/11/18 Time of Evaluation: 14:00 - Subjective Subjective: No complaints. Objective - Vital Signs/Intake and Output Vital Signs (last 24 hours): Temp Pulse Resp BP Pulse Ox 98.3 F 91 H 20 110/50 L 98 01/13/18 16:00 01/13/18 16:00 01/13/18 16:00 01/13/18 16:00 01/13/18 16:00 Intake and Output: 01/13/18 01/14/18 18:59 06:59 Intake Total 360 Balance 360 - Medications Medications: Current Medications Amlodipine Besylate (Norvasc) 10 mg PO DAILY [facility] Last Admin: 01/13/18 11:00 Dose: 10 mg Dextrose (Dextrose 50% Inj) 0 ml IVP .STAT PRN; Protocol PRN Reason: Hypoglycemia Protocol Dextrose (Glutose 15) 0 gm PO .ONCE PRN; Protocol PRN Reason: Hypoglycemia Protocol Folic Acid (Folic Acid) 1 mg PO DAILY [facility] Last Admin: 01/13/18 11:00 Dose: 1 mg Glucagon (Glucagen Diagnostic Kit) 0 mg IM .STAT PRN; Protocol PRN Reason: Hypoglycemia Protocol Home Med (Patient's Own Injectable) 22 unit SC DAILY [facility] Last Admin: 01/13/18 11:06 Dose: 22 unit Hydrochlorothiazide (Hydrodiuril) 25 mg PO DAILY [facility] Last Admin: 01/13/18 11:00 Dose: 25 mg Dextrose (Dextrose 5% In Water 1000 Ml) 1,000 mls @ 0 mls/hr IV .Q0M PRN; Protocol; Per Protocol PRN Reason: Hypoglycemia Protocol Insulin Human Regular (Novolin R) 0 unit SC [facility] PRN Reason: Protocol Last Admin: 01/13/18 21:38 Dose: Not Given Losartan Potassium (Cozaar) 100 mg PO DAILY [facility] Last Admin: 01/13/18 11:00 Dose: 100 mg Metoprolol Succinate (Toprol Xl) 50 mg PO DAILY [facility] Last Admin: 01/13/18 11:00 Dose: 50 mg Pantoprazole Sodium (Protonix Ec Tab) 40 mg PO DAILY [facility] Last Admin: 01/13/18 11:01 Dose: 40 mg Phenytoin Sodium (Dilantin) 100 mg PO TID [facility] Last Admin: 01/13/18 17:26 Dose: 100 mg Potassium Chloride (K-Dur 20 Meq Er Tab) 20 meq PO DAILY [facility] Last Admin: 01/13/18 11:05 Dose: 20 meq Rosuvastatin Calcium (Crestor) 40 mg PO HS [facility] Last Admin: 01/13/18 21:39 Dose: 40 mg Theophylline (Jose C-24) 300 mg PO DAILY [facility] Last Admin: 01/13/18 12:46 Dose: 300 mg Tramadol HCl (Ultram) 50 mg PO Q6 PRN PRN Reason: pain Last Admin: 01/13/18 22:25 Dose: 50 mg - Labs Labs: 01/13/18 07:46 01/12/18 08:16 PT 12.2 SECONDS (9.7-12.2) 01/13/18 07:46 INR 1.1 01/13/18 07:46 APTT 55 SECONDS (21-34) H 01/07/18 09:51 - Head Exam Head Exam: ATRAUMATIC - Eye Exam Eye Exam: Normal appearance - ENT Exam ENT Exam: Mucous Membranes Dry - Respiratory Exam Respiratory Exam: NORMAL BREATHING PATTERN - Cardiovascular Exam Cardiovascular Exam: +S1, +S2 - GI/Abdominal Exam GI & Abdominal Exam: Normal Bowel Sounds Assessment and Plan (1) Anemia Assessment & Plan: multifactorial prior GI blood loss; FOBT positive valvular hemolysis; cardiology evaluation normal iron, b12, folate stores s/p PRBC transfusion Status: Acute (2) Coagulopathy Assessment & Plan: secondary to coumadin Status: Acute
--- NOTE | 2018-01-13 22:59 | CP.PCM.PN ---
Subjective - Date & Time of Evaluation Date of Evaluation: 01/12/18 Time of Evaluation: 12:00 - Subjective Subjective: No complaints, receiving PRBC transfusion. Objective - Vital Signs/Intake and Output Vital Signs (last 24 hours): Temp Pulse Resp BP Pulse Ox 98.3 F 91 H 20 110/50 L 98 01/13/18 16:00 01/13/18 16:00 01/13/18 16:00 01/13/18 16:00 01/13/18 16:00 Intake and Output: 01/13/18 01/14/18 18:59 06:59 Intake Total 360 Balance 360 - Medications Medications: Current Medications Amlodipine Besylate (Norvasc) 10 mg PO DAILY [facility] Last Admin: 01/13/18 11:00 Dose: 10 mg Dextrose (Dextrose 50% Inj) 0 ml IVP .STAT PRN; Protocol PRN Reason: Hypoglycemia Protocol Dextrose (Glutose 15) 0 gm PO .ONCE PRN; Protocol PRN Reason: Hypoglycemia Protocol Folic Acid (Folic Acid) 1 mg PO DAILY [facility] Last Admin: 01/13/18 11:00 Dose: 1 mg Glucagon (Glucagen Diagnostic Kit) 0 mg IM .STAT PRN; Protocol PRN Reason: Hypoglycemia Protocol Home Med (Patient's Own Injectable) 22 unit SC DAILY [facility] Last Admin: 01/13/18 11:06 Dose: 22 unit Hydrochlorothiazide (Hydrodiuril) 25 mg PO DAILY [facility] Last Admin: 01/13/18 11:00 Dose: 25 mg Dextrose (Dextrose 5% In Water 1000 Ml) 1,000 mls @ 0 mls/hr IV .Q0M PRN; Protocol; Per Protocol PRN Reason: Hypoglycemia Protocol Insulin Human Regular (Novolin R) 0 unit SC [facility] PRN Reason: Protocol Last Admin: 01/13/18 21:38 Dose: Not Given Losartan Potassium (Cozaar) 100 mg PO DAILY [facility] Last Admin: 01/13/18 11:00 Dose: 100 mg Metoprolol Succinate (Toprol Xl) 50 mg PO DAILY [facility] Last Admin: 01/13/18 11:00 Dose: 50 mg Pantoprazole Sodium (Protonix Ec Tab) 40 mg PO DAILY [facility] Last Admin: 01/13/18 11:01 Dose: 40 mg Phenytoin Sodium (Dilantin) 100 mg PO TID [facility] Last Admin: 06/30/18 17:26 Dose: 100 mg Potassium Chloride (K-Dur 20 Meq Er Tab) 20 meq PO DAILY [facility] Last Admin: 01/13/18 11:05 Dose: 20 meq Rosuvastatin Calcium (Crestor) 40 mg PO HS [facility] Last Admin: 01/13/18 21:39 Dose: 40 mg Theophylline (Jose C-24) 300 mg PO DAILY [facility] Last Admin: 01/13/18 12:46 Dose: 300 mg Tramadol HCl (Ultram) 50 mg PO Q6 PRN PRN Reason: pain Last Admin: 01/13/18 22:25 Dose: 50 mg - Labs Labs: 01/13/18 07:46 01/12/18 08:16 PT 12.2 SECONDS (9.7-12.2) 01/13/18 07:46 INR 1.1 01/13/18 07:46 APTT 55 SECONDS (21-34) H 01/07/18 09:51 - Head Exam Head Exam: ATRAUMATIC - Eye Exam Eye Exam: Normal appearance - ENT Exam ENT Exam: Mucous Membranes Dry - Respiratory Exam Respiratory Exam: NORMAL BREATHING PATTERN - Cardiovascular Exam Cardiovascular Exam: +S1, +S2 - GI/Abdominal Exam GI & Abdominal Exam: Normal Bowel Sounds Assessment and Plan (1) Anemia Assessment & Plan: multifactorial prior GI blood loss; FOBT positive valvular hemolysis; cardiology evaluation normal iron, b12, folate stores s/p PRBC transfusion Status: Acute (2) Coagulopathy Assessment & Plan: secondary to anticoagulation. Status: Acute
--- NOTE | 2018-01-13 23:00 | CP.PCM.PN ---
Subjective - Date & Time of Evaluation Date of Evaluation: 01/13/18 Time of Evaluation: 13:00 - Subjective Subjective: Feeling better after PRBC transfusion Objective - Vital Signs/Intake and Output Vital Signs (last 24 hours): Temp Pulse Resp BP Pulse Ox 98.3 F 91 H 20 110/50 L 98 01/13/18 16:00 01/13/18 16:00 01/13/18 16:00 01/13/18 16:00 01/13/18 16:00 Intake and Output: 01/13/18 01/14/18 18:59 06:59 Intake Total 360 Balance 360 - Medications Medications: Current Medications Amlodipine Besylate (Norvasc) 10 mg PO DAILY [facility] Last Admin: 01/13/18 11:00 Dose: 10 mg Dextrose (Dextrose 50% Inj) 0 ml IVP .STAT PRN; Protocol PRN Reason: Hypoglycemia Protocol Dextrose (Glutose 15) 0 gm PO .ONCE PRN; Protocol PRN Reason: Hypoglycemia Protocol Folic Acid (Folic Acid) 1 mg PO DAILY [facility] Last Admin: 01/13/18 11:00 Dose: 1 mg Glucagon (Glucagen Diagnostic Kit) 0 mg IM .STAT PRN; Protocol PRN Reason: Hypoglycemia Protocol Home Med (Patient's Own Injectable) 22 unit SC DAILY [facility] Last Admin: 01/13/18 11:06 Dose: 22 unit Hydrochlorothiazide (Hydrodiuril) 25 mg PO DAILY [facility] Last Admin: 01/13/18 11:00 Dose: 25 mg Dextrose (Dextrose 5% In Water 1000 Ml) 1,000 mls @ 0 mls/hr IV .Q0M PRN; Protocol; Per Protocol PRN Reason: Hypoglycemia Protocol Insulin Human Regular (Novolin R) 0 unit SC [facility] PRN Reason: Protocol Last Admin: 01/13/18 21:38 Dose: Not Given Losartan Potassium (Cozaar) 100 mg PO DAILY [facility] Last Admin: 01/13/18 11:00 Dose: 100 mg Metoprolol Succinate (Toprol Xl) 50 mg PO DAILY [facility] Last Admin: 01/13/18 11:00 Dose: 50 mg Pantoprazole Sodium (Protonix Ec Tab) 40 mg PO DAILY [facility] Last Admin: 01/13/18 11:01 Dose: 40 mg Phenytoin Sodium (Dilantin) 100 mg PO TID [facility] Last Admin: 01/13/18 17:26 Dose: 100 mg Potassium Chloride (K-Dur 20 Meq Er Tab) 20 meq PO DAILY [facility] Last Admin: 01/13/18 11:05 Dose: 20 meq Rosuvastatin Calcium (Crestor) 40 mg PO HS [facility] Last Admin: 01/13/18 21:39 Dose: 40 mg Theophylline (Jose C-24) 300 mg PO DAILY [facility] Last Admin: 01/13/18 12:46 Dose: 300 mg Tramadol HCl (Ultram) 50 mg PO Q6 PRN PRN Reason: pain Last Admin: 01/13/18 22:25 Dose: 50 mg - Labs Labs: 01/13/18 07:46 01/12/18 08:16 PT 12.2 SECONDS (9.7-12.2) 01/13/18 07:46 INR 1.1 01/13/18 07:46 APTT 55 SECONDS (21-34) H 01/07/18 09:51 - Head Exam Head Exam: ATRAUMATIC - Eye Exam Eye Exam: Normal appearance - ENT Exam ENT Exam: Mucous Membranes Dry - Respiratory Exam Respiratory Exam: NORMAL BREATHING PATTERN - Cardiovascular Exam Cardiovascular Exam: +S1, +S2 - GI/Abdominal Exam GI & Abdominal Exam: Normal Bowel Sounds Assessment and Plan (1) Anemia Assessment & Plan: multifactorial prior GI blood loss; FOBT positive valvular hemolysis; cardiology evaluation normal iron, b12, folate stores s/p PRBC transfusion Status: Acute (2) Coagulopathy Assessment & Plan: on anticoagulation Status: Acute
[2018-01-14 06:57] LABS: INR 1.1; PROTHROMBIN TIME 12.4 SECONDS (9.7-12.2)
[2018-01-14 07:15] LABS: ALBUMIN 3.2 g/dL (3.5-5.0); ALT/SGPT 22 U/L (9-52); AST/SGOT 68 U/L (14-36); BLOOD UREA NITROGEN 16 mg/dL (7-17); CALCIUM 8.7 mg/dl (8.6-10.4); GFR AFRICAN-AMERICAN > 60; GFR NON-AFRICAN AMERICAN 51
[2018-01-14] MEDS: (Novolin R) Insulin Human Regular 100 units/ml vial SC SCH ×4 (07:42→21:29)
[2018-01-14 08:13] LABS: BASO % 0.7 % (0.0-2.0); EOS # 0.2 K/uL (0.0-0.7); EOS % 3.1 % (0.0-4.0); HEMOGLOBIN 7.2 g/dL (11.0-16.0); LYMPH # 1.4 K/uL (1.0-4.3); LYMPH % 26.4 % (20.0-40.0); MEAN CELL VOLUME 86.5 fL (81.0-99.0); MEAN CORPUSCULAR HGB CONC 33.5 g/dL (33.0-37.0); MONO # 0.4 K/uL (0.0-0.8); MONO % 7.3 % (0.0-10.0); NEUT # 3.2 K/uL (1.8-7.0); NEUT % 62.5 % (50.0-75.0); NRBC % 0.1 % (0.0-2.0); RBC 2.5 Mil/uL (3.80-5.20); RED CELL DISTRIBUTION WIDTH 15.5 % (11.5-14.5); WHITE BLOOD COUNT 5.1 K/uL (4.8-10.8)
--- NOTE | 2018-01-14 08:27 | CP.PCM.PN ---
Subjective - Date & Time of Evaluation Date of Evaluation: 01/14/18 Time of Evaluation: 08:24 - Subjective Subjective: 57 y/o female seen at bedside this morning regarding left hallux amputation site ulceration. States she is still having some pain in the foot near her big toe but it is manageable. Denies any acute events overnight. Denies F/C/N/V/CP/ SOB. Objective - Vital Signs/Intake and Output Vital Signs (last 24 hours): Temp Pulse Resp BP Pulse Ox 98.5 F 87 20 122/71 97 01/14/18 00:00 01/14/18 00:00 01/14/18 00:00 01/14/18 00:00 01/14/18 00:00 Intake and Output: 01/14/18 01/14/18 06:59 18:59 Intake Total 590 Balance 590 - Medications Medications: Current Medications Amlodipine Besylate (Norvasc) 10 mg PO DAILY [facility] Last Admin: 01/13/18 11:00 Dose: 10 mg Dextrose (Dextrose 50% Inj) 0 ml IVP .STAT PRN; Protocol PRN Reason: Hypoglycemia Protocol Dextrose (Glutose 15) 0 gm PO .ONCE PRN; Protocol PRN Reason: Hypoglycemia Protocol Folic Acid (Folic Acid) 1 mg PO DAILY [facility] Last Admin: 01/13/18 11:00 Dose: 1 mg Glucagon (Glucagen Diagnostic Kit) 0 mg IM .STAT PRN; Protocol PRN Reason: Hypoglycemia Protocol Home Med (Patient's Own Injectable) 22 unit SC DAILY [facility] Last Admin: 01/13/18 11:06 Dose: 22 unit Hydrochlorothiazide (Hydrodiuril) 25 mg PO DAILY [facility] Last Admin: 01/13/18 11:00 Dose: 25 mg Dextrose (Dextrose 5% In Water 1000 Ml) 1,000 mls @ 0 mls/hr IV .Q0M PRN; Protocol; Per Protocol PRN Reason: Hypoglycemia Protocol Insulin Human Regular (Novolin R) 0 unit SC [facility] PRN Reason: Protocol Last Admin: 01/14/18 07:42 Dose: 4 units Losartan Potassium (Cozaar) 100 mg PO DAILY [facility] Last Admin: 01/13/18 11:00 Dose: 100 mg Metoprolol Succinate (Toprol Xl) 50 mg PO DAILY [facility] Last Admin: 01/13/18 11:00 Dose: 50 mg Pantoprazole Sodium (Protonix Ec Tab) 40 mg PO DAILY [facility] Last Admin: 01/13/18 11:01 Dose: 40 mg Phenytoin Sodium (Dilantin) 100 mg PO TID [facility] Last Admin: 01/13/18 17:26 Dose: 100 mg Potassium Chloride (K-Dur 20 Meq Er Tab) 20 meq PO DAILY [facility] Last Admin: 01/13/18 11:05 Dose: 20 meq Rosuvastatin Calcium (Crestor) 40 mg PO HS [facility] Last Admin: 01/13/18 21:39 Dose: 40 mg Theophylline (Jose C-24) 300 mg PO DAILY [facility] Last Admin: 01/13/18 12:46 Dose: 300 mg Tramadol HCl (Ultram) 50 mg PO Q6 PRN PRN Reason: pain Last Admin: 01/14/18 07:45 Dose: 50 mg - Labs Labs: 01/14/18 07:59 01/14/18 06:47 PT 12.4 SECONDS (9.7-12.2) H 01/14/18 06:47 INR 1.1 01/14/18 06:47 APTT 55 SECONDS (21-34) H 01/07/18 09:51 - Constitutional Appears: Well, Non-toxic, No Acute Distress - Extremities Exam Additional comments: Left lower extremity focused exam: Vasc: DP/PT non palpable pulses. CFT < 3 sec in all digits, Temp gradient warm to cool. No edema. Neuro: Gross sensation intact. Protective sensation grossly diminished. Derm: At the site of L hallux amputation there is an open wound linear in shape measuring approx 3.0cm x 1cm x 0.1cm with minimal drainage, no malodor, minimal erythema around the edges. Maceration to wound borders noted to have resolved. Wound base is 50% granular and 50% fibrotic in nature. No undermining , no tracking and no probing to bone. No signs of active bacterial infection. Ortho: Mild-moderate pain on palpation of the hallux stump ulceration site - Neurological Exam Neurological Exam: Alert, Awake, Oriented x3 - Psychiatric Exam Psychiatric exam: Normal Affect, Normal Mood Assessment and Plan - Assessment and Plan (Free Text) Assessment: 57 y/o F patient seen and evaluated at the bedside for L foot open wound at the site of amputated hallux Plan: Patient was seen and evaluated at bedside Plan discussed with the attending Dr. Bhat Dressing was done for the open wound using Betadine, DSD, and Reina No further wound debridement to be performed Podiatry to continue with conservative local wound care Patient expressed verbal understanding Podiatry will follow patient while in house
[2018-01-14] MEDS: Potassium Chloride 20 mEq ER Tab PO SCH (09:52)
[2018-01-14] MEDS: Metoprolol Succinate 50 mg XL Tab PO SCH (09:52)
[2018-01-14] MEDS: Theophylline 300mg ER 24 hrs Cap PO SCH (09:52)
[2018-01-14] MEDS: Pantoprazole 40 mg EC Tab PO SCH (09:53)
[2018-01-14] MEDS: XULTOPHY SC SCH (09:54)
--- NOTE | 2018-01-14 12:20 | CP.PCM.PN ---
Subjective - Date & Time of Evaluation Date of Evaluation: 01/14/18 Time of Evaluation: 07:30 - Subjective Subjective: clinically same Objective - Vital Signs/Intake and Output Vital Signs (last 24 hours): Temp Pulse Resp BP Pulse Ox 97.3 F L 82 20 123/61 97 01/14/18 11:43 01/14/18 11:43 01/14/18 11:43 01/14/18 11:43 01/14/18 00:00 Intake and Output: 01/14/18 01/14/18 06:59 18:59 Intake Total 590 0 Balance 590 0 - Medications Medications: Current Medications Amlodipine Besylate (Norvasc) 10 mg PO DAILY [facility] Last Admin: 01/14/18 09:52 Dose: 10 mg Dextrose (Dextrose 50% Inj) 0 ml IVP .STAT PRN; Protocol PRN Reason: Hypoglycemia Protocol Dextrose (Glutose 15) 0 gm PO .ONCE PRN; Protocol PRN Reason: Hypoglycemia Protocol Folic Acid (Folic Acid) 1 mg PO DAILY [facility] Last Admin: 01/14/18 09:53 Dose: 1 mg Glucagon (Glucagen Diagnostic Kit) 0 mg IM .STAT PRN; Protocol PRN Reason: Hypoglycemia Protocol Home Med (Patient's Own Injectable) 22 unit SC DAILY [facility] Last Admin: 01/14/18 09:54 Dose: 22 unit Hydrochlorothiazide (Hydrodiuril) 25 mg PO DAILY [facility] Last Admin: 01/14/18 09:52 Dose: 25 mg Dextrose (Dextrose 5% In Water 1000 Ml) 1,000 mls @ 0 mls/hr IV .Q0M PRN; Protocol; Per Protocol PRN Reason: Hypoglycemia Protocol Insulin Human Regular (Novolin R) 0 unit SC [facility] PRN Reason: Protocol Last Admin: 01/14/18 11:36 Dose: 3 units Losartan Potassium (Cozaar) 100 mg PO DAILY [facility] Last Admin: 01/14/18 09:53 Dose: 100 mg Metoprolol Succinate (Toprol Xl) 50 mg PO DAILY [facility] Last Admin: 01/14/18 09:52 Dose: 50 mg Pantoprazole Sodium (Protonix Ec Tab) 40 mg PO DAILY [facility] Last Admin: 01/14/18 09:53 Dose: 40 mg Phenytoin Sodium (Dilantin) 100 mg PO TID [facility] Last Admin: 01/14/18 09:52 Dose: 100 mg Potassium Chloride (K-Dur 20 Meq Er Tab) 20 meq PO DAILY [facility] Last Admin: 01/14/18 09:52 Dose: 20 meq Rosuvastatin Calcium (Crestor) 40 mg PO HS [facility] Last Admin: 01/13/18 21:39 Dose: 40 mg Theophylline (Jose C-24) 300 mg PO DAILY [facility] Last Admin: 01/14/18 09:52 Dose: 300 mg Tramadol HCl (Ultram) 50 mg PO Q6 PRN PRN Reason: pain Last Admin: 01/14/18 07:45 Dose: 50 mg - Labs Labs: 01/14/18 07:59 01/14/18 06:47 PT 12.4 SECONDS (9.7-12.2) H 01/14/18 06:47 INR 1.1 01/14/18 06:47 APTT 55 SECONDS (21-34) H 01/07/18 09:51 - Constitutional Appears: Well - Head Exam Head Exam: ATRAUMATIC, NORMAL INSPECTION, NORMOCEPHALIC - Eye Exam Eye Exam: EOMI, Normal appearance, PERRL Pupil Exam: NORMAL ACCOMODATION, PERRL - ENT Exam ENT Exam: Mucous Membranes Moist, Normal Exam - Neck Exam Neck Exam: Full ROM, Normal Inspection. absent: Lymphadenopathy - Respiratory Exam Respiratory Exam: Decreased Breath Sounds - Cardiovascular Exam Cardiovascular Exam: REGULAR RHYTHM, +S1, +S2 - GI/Abdominal Exam GI & Abdominal Exam: Soft, Diminished Bowel Sounds - Rectal Exam Rectal Exam: Deferred Assessment and Plan (1) GI bleed Status: Acute (2) Symptomatic anemia Status: Acute (3) Amputation of fifth toe, left, traumatic Status: Acute (4) Anemia Status: Acute (5) Coagulopathy Status: Acute (6) S/P MVR (mitral valve replacement) Status: Acute (7) Small intestinal hemorrhage requiring more than four units of blood in 24 hours, admission to ICU, or surgery Status: Acute (8) Toe gangrene Status: Acute (9) Uncontrolled hypertension Status: Acute (10) CAD (coronary artery disease) Status: Chronic (11) Dyslipidemia Status: Chronic (12) PVD (peripheral vascular disease) Status: Chronic (13) Uncontrolled diabetes mellitus Status: Chronic - Assessment and Plan (Free Text) Plan: Hemoglobin is 7.2 potassium is 4.2 again dropped the hemoglobin we will transfuse [address] but Devang consult Again we need to notify GI Discussed with the patient's Continue losartan Christer amlodipine pantoprazole theophylline metoprolol Follow-up with other consultations CBC CMP every day Coumadin is on hold As ordered
[2018-01-14 17:37] LABS: BASO % 0.4 % (0.0-2.0); EOS # 0.2 K/uL (0.0-0.7); EOS % 3.2 % (0.0-4.0); HEMOGLOBIN 10.5 g/dL (11.0-16.0); LYMPH # 1.8 K/uL (1.0-4.3); LYMPH % 24.4 % (20.0-40.0); MEAN CELL VOLUME 86.5 fL (81.0-99.0); MEAN CORPUSCULAR HGB CONC 32.4 g/dL (33.0-37.0); MONO # 0.4 K/uL (0.0-0.8); MONO % 6.1 % (0.0-10.0); NEUT # 4.8 K/uL (1.8-7.0); NEUT % 65.9 % (50.0-75.0); RBC 3.74 Mil/uL (3.80-5.20); WHITE BLOOD COUNT 7.3 K/uL (4.8-10.8)
[2018-01-14 17:57] LABS: ALBUMIN 3.6 g/dL (3.5-5.0); ALT/SGPT 25 U/L (9-52); AST/SGOT 53 U/L (14-36); BLOOD UREA NITROGEN 16 mg/dL (7-17); CALCIUM 8.8 mg/dl (8.6-10.4); GFR AFRICAN-AMERICAN > 60; GFR NON-AFRICAN AMERICAN 57
--- NOTE | 2018-01-14 19:07 | PN ---
DATE: 01/14/2018 SUBJECTIVE: The patient did have melena and is currently receiving 1 unit of packed RBC transfusion. She denies any dizziness or shortness of breath. PHYSICAL EXAMINATION: VITAL SIGNS: Blood pressure 123/61, heart rate 82, temperature 97.3, respiration 20. HEENT: Pale conjunctivae. CHEST: Clear. HEART: S1 and S2, regular. EXTREMITIES: Trace left leg edema. LABORATORY DATA: Hemoglobin and hematocrit 7.2 and 21.6, white count and platelet count are within normal limits. Today's INR is 1.1. Today's SMA-7 is within normal limits except for glucose 97. ASSESSMENT: 1. Recurrent lower gastrointestinal bleeding. 2. Status post mechanical mitral and aortic valve replacement . 3. Anemia. 4. Peripheral vascular disease, status post bilateral lower extremity stenting as well as left big toe amputation. 5. Hypertension. RECOMMENDATION: Continue Cozaar 100 mg once a day, Crestor 40 mg once a day, Dilantin 100 mg t.i.d., folic acid 1 mg once a day, Norvasc 10 mg once a day, K-Dur 20 mEq once a day, Protonix 40 mg once a day, Toprol-XL 50 mg once a day. I will hold on further Coumadin therapy. Kraig Sheldon MD
[2018-01-15] MEDS: Ciprofloxacin 400mg/200ml D5W 400 MG/200 ML BAG IVPB SCH ×2 (00:38→11:39)
[2018-01-15 00:40] LABS: SQUAMOUS EPITHIAL 3 /hpf (0-5); URINE BILIRUBIN NEGATIVE (NEGATIVE); URINE BLOOD 1+ (NEGATIVE); URINE CLARITY Clear (Clear); URINE COLOR Yellow (YELLOW); URINE GLUCOSE (UA) NORMAL (Normal); URINE LEUKOCYTE ESTERASE 2+ Leu/uL (Negative); URINE PROTEIN 1+ mg/dL (NEGATIVE); URINE UROBILINOGEN NORMAL mg/dL (0.2-1.0)
[2018-01-15 07:22] LABS: BASO % 0.6 % (0.0-2.0); EOS # 0.2 K/uL (0.0-0.7); EOS % 3.7 % (0.0-4.0); HEMOGLOBIN 10.1 g/dL (11.0-16.0); LYMPH # 1.6 K/uL (1.0-4.3); LYMPH % 25.8 % (20.0-40.0); MEAN CELL VOLUME 86.3 fL (81.0-99.0); MEAN CORPUSCULAR HEMOGLOBIN 28.9 pg (27.0-31.0); MEAN CORPUSCULAR HGB CONC 33.4 g/dL (33.0-37.0); MEAN PLATELET VOLUME 8.1 fL (7.2-11.7); MONO # 0.4 K/uL (0.0-0.8); MONO % 6.8 % (0.0-10.0); NEUT # 3.9 K/uL (1.8-7.0); NEUT % 63.1 % (50.0-75.0); RBC 3.48 Mil/uL (3.80-5.20); RED CELL DISTRIBUTION WIDTH 15.3 % (11.5-14.5); WHITE BLOOD COUNT 6.3 K/uL (4.8-10.8)
[2018-01-15 07:49] LABS: ALBUMIN 3.4 g/dL (3.5-5.0); ALT/SGPT 26 U/L (9-52); AST/SGOT 46 U/L (14-36); BLOOD UREA NITROGEN 14 mg/dL (7-17); CALCIUM 9.1 mg/dl (8.6-10.4); GFR AFRICAN-AMERICAN > 60; GFR NON-AFRICAN AMERICAN 51
[2018-01-15 08:15] VITALS: BP 135/75; PULSE 90; RESP 18; TEMP 98.5; O2SAT 99
[2018-01-15] MEDS: (Novolin R) Insulin Human Regular 100 units/ml vial SC SCH ×2 (08:19→11:33)
--- NOTE | 2018-01-15 09:55 | CP.PCM.PN ---
Subjective - Date & Time of Evaluation Date of Evaluation: 01/15/18 Time of Evaluation: 09:20 - Subjective Subjective: PGY2 Medicine Note for Dr. Joanna Zhou Patient seen and examined at bedside. No acute events overnight. Patient states she is still feeling energized. She would like to go home today. She had two normal bowel movements yesterday and denies seeing blood or dark stools. Patient reports walking well on her foot but is still having some pain associated with her left toe. The pain has been well controlled. She has no other complaints at this time. Denies fevers, chills, nausea, vomiting, diarrhea , constipation, chest pain, shortness of breath, abdominal pain, dysuria, lightheadedness, dizziness or fatigue. Objective - Vital Signs/Intake and Output Vital Signs (last 24 hours): Temp Pulse Resp BP Pulse Ox 98.5 F 90 18 135/75 99 01/15/18 07:25 01/15/18 07:25 01/15/18 07:25 01/15/18 07:25 01/15/18 07:25 Intake and Output: 01/15/18 01/15/18 06:59 18:59 Intake Total 600 Balance 600 - Medications Medications: Current Medications Amlodipine Besylate (Norvasc) 10 mg PO DAILY [facility] Last Admin: 01/14/18 09:52 Dose: 10 mg Dextrose (Dextrose 50% Inj) 0 ml IVP .STAT PRN; Protocol PRN Reason: Hypoglycemia Protocol Dextrose (Glutose 15) 0 gm PO .ONCE PRN; Protocol PRN Reason: Hypoglycemia Protocol Folic Acid (Folic Acid) 1 mg PO DAILY [facility] Last Admin: 01/14/18 09:53 Dose: 1 mg Glucagon (Glucagen Diagnostic Kit) 0 mg IM .STAT PRN; Protocol PRN Reason: Hypoglycemia Protocol Home Med (Patient's Own Injectable) 22 unit SC DAILY [facility] Last Admin: 01/14/18 09:54 Dose: 22 unit Hydrochlorothiazide (Hydrodiuril) 25 mg PO DAILY [facility] Last Admin: 01/14/18 09:52 Dose: 25 mg Dextrose (Dextrose 5% In Water 1000 Ml) 1,000 mls @ 0 mls/hr IV .Q0M PRN; Protocol; Per Protocol PRN Reason: Hypoglycemia Protocol Ciprofloxacin (Cipro 400mg/200ml Dsw) 400 mg in 200 mls @ 133 mls/hr IVPB Q12H [facility] PRN Reason: Protocol Last Admin: 01/15/18 00:38 Dose: 133 mls/hr Insulin Human Regular (Novolin R) 0 unit SC ACHS [facility] PRN Reason: Protocol Last Admin: 01/15/18 08:19 Dose: Not Given Losartan Potassium (Cozaar) 100 mg PO DAILY [facility] Last Admin: 01/14/18 09:53 Dose: 100 mg Metoprolol Succinate (Toprol Xl) 50 mg PO DAILY [facility] Last Admin: 01/14/18 09:52 Dose: 50 mg Pantoprazole Sodium (Protonix Ec Tab) 40 mg PO DAILY [facility] Last Admin: 01/14/18 09:53 Dose: 40 mg Phenytoin Sodium (Dilantin) 100 mg PO TID [facility] Last Admin: 01/14/18 17:11 Dose: 100 mg Potassium Chloride (K-Dur 20 Meq Er Tab) 20 meq PO DAILY [facility] Last Admin: 01/14/18 09:52 Dose: 20 meq Rosuvastatin Calcium (Crestor) 40 mg PO HS [facility] Last Admin: 01/14/18 21:27 Dose: 40 mg Theophylline (Jose C-24) 300 mg PO DAILY [facility] Last Admin: 01/14/18 09:52 Dose: 300 mg Tramadol HCl (Ultram) 50 mg PO Q6 PRN PRN Reason: pain Last Admin: 01/14/18 17:10 Dose: 50 mg - Labs Labs: 01/15/18 07:16 01/15/18 07:16 PT 12.4 SECONDS (9.7-12.2) H 01/14/18 06:47 INR 1.1 01/14/18 06:47 APTT 55 SECONDS (21-34) H 01/07/18 09:51 - Constitutional Appears: Non-toxic, No Acute Distress - Head Exam Head Exam: ATRAUMATIC - Eye Exam Eye Exam: EOMI, Normal appearance - ENT Exam ENT Exam: Mucous Membranes Moist - Neck Exam Neck Exam: absent: Lymphadenopathy - Respiratory Exam Respiratory Exam: NORMAL BREATHING PATTERN. absent: Accessory Muscle Use, Rales , Rhonchi, Wheezes, Respiratory Distress - Cardiovascular Exam Cardiovascular Exam: REGULAR RHYTHM, +S1, +S2 - GI/Abdominal Exam GI & Abdominal Exam: Soft. absent: Distended, Firm, Guarding, Rigid, Tenderness - Extremities Exam Additional comments: Left great toe dressing c/d/i - Neurological Exam Neurological Exam: Alert, Awake, CN II-XII Intact, Oriented x3 - Psychiatric Exam Psychiatric exam: Normal Affect, Normal Mood - Skin Skin Exam: Dry, Warm Assessment and Plan - Assessment and Plan (Free Text) Plan: Anemia, microcytic -Multifactorial: vavular hemolysis and GI blood loss -S/P 3u PRBC transfusion -Stable Hgb 10.1 (yesterday 10.5) -Ferritin 110 -Follow heme/onc and GI recommendations History of Mitral valve replacement -Cardiology consulted, follow recommendations -Coumadin 4mg - on hold due to GI bleed -INR 1.1 on 01/14 PVD s/p left hallux amputation -Podiatry and wound care consulted * per Podiatry note, no further debridement needed. -Dressing per podiatry -Tramadol 50mg po Q6 prn DM -ISS -Finger stick ACHS -Hypoglycemia protocol HTN -Amlodipine 10mg -HCTZ 25mg -Losartan 100mg -Metoprolol 50mg PO HLD -Crestor 40mg po Prophylactic measures -SCD -VTE contraindication due to anemia -Protoxin Discharge instructions Patient is to be discharged home per Dr. Joanna Zhou. Patient is to continue taking her medications as directed. DO NOT TAKE COUMADIN New prescription given for Hydrochlorthiazide 25mg PO Daily - disp 30 Patient is to follow up with Dr. Joanna Zhou in his office this week. If patient experiences any new or concerning symptoms, please go directly to the nearest emergency room. All management per Dr. Joanna Zhou
[2018-01-15] MEDS: Theophylline 300mg ER 24 hrs Cap PO SCH (10:38)
[2018-01-15] MEDS: Pantoprazole 40 mg EC Tab PO SCH (10:38)
[2018-01-15] MEDS: Metoprolol Succinate 50 mg XL Tab PO SCH (10:39)
[2018-01-15] MEDS: Potassium Chloride 20 mEq ER Tab PO SCH (10:46)
[2018-01-15] MEDS: XULTOPHY SC SCH (10:47)
--- NOTE | 2018-01-15 11:40 | CP.PCM.PN ---
Subjective - Date & Time of Evaluation Date of Evaluation: 01/15/18 Time of Evaluation: 11:38 - Subjective Subjective: Podiatry Progress note: Dr. Bhat 57 year old female seen at bedside this morning regarding left hallux amputation site ulceration. Reports that she is feeling well. Denies any acute events overnight. Denies F/C/N/V/CP/SOB. Objective - Vital Signs/Intake and Output Vital Signs (last 24 hours): Temp Pulse Resp BP Pulse Ox 98.5 F 90 18 135/75 99 01/15/18 07:25 01/15/18 07:25 01/15/18 07:25 01/15/18 07:25 01/15/18 07:25 Intake and Output: 01/15/18 01/15/18 06:59 18:59 Intake Total 600 Balance 600 - Medications Medications: Current Medications Amlodipine Besylate (Norvasc) 10 mg PO DAILY [facility] Last Admin: 01/15/18 10:39 Dose: 10 mg Dextrose (Dextrose 50% Inj) 0 ml IVP .STAT PRN; Protocol PRN Reason: Hypoglycemia Protocol Dextrose (Glutose 15) 0 gm PO .ONCE PRN; Protocol PRN Reason: Hypoglycemia Protocol Folic Acid (Folic Acid) 1 mg PO DAILY [facility] Last Admin: 01/15/18 10:39 Dose: 1 mg Glucagon (Glucagen Diagnostic Kit) 0 mg IM .STAT PRN; Protocol PRN Reason: Hypoglycemia Protocol Home Med (Patient's Own Injectable) 22 unit SC DAILY [facility] Last Admin: 01/15/18 10:47 Dose: 22 unit Hydrochlorothiazide (Hydrodiuril) 25 mg PO DAILY [facility] Last Admin: 01/15/18 10:38 Dose: 25 mg Dextrose (Dextrose 5% In Water 1000 Ml) 1,000 mls @ 0 mls/hr IV .Q0M PRN; Protocol; Per Protocol PRN Reason: Hypoglycemia Protocol Ciprofloxacin (Cipro 400mg/200ml Dsw) 400 mg in 200 mls @ 133 mls/hr IVPB Q12H [facility] PRN Reason: Protocol Last Admin: 01/15/18 00:38 Dose: 133 mls/hr Insulin Human Regular (Novolin R) 0 unit SC ACHS [facility] PRN Reason: Protocol Last Admin: 01/15/18 11:33 Dose: 4 units Losartan Potassium (Cozaar) 100 mg PO DAILY [facility] Last Admin: 01/15/18 10:39 Dose: 100 mg Metoprolol Succinate (Toprol Xl) 50 mg PO DAILY [facility] Last Admin: 01/15/18 10:39 Dose: 50 mg Pantoprazole Sodium (Protonix Ec Tab) 40 mg PO DAILY [facility] Last Admin: 01/15/18 10:38 Dose: 40 mg Phenytoin Sodium (Dilantin) 100 mg PO TID [facility] Last Admin: 01/15/18 10:38 Dose: 100 mg Potassium Chloride (K-Dur 20 Meq Er Tab) 20 meq PO DAILY [facility] Last Admin: 01/15/18 10:46 Dose: Not Given Rosuvastatin Calcium (Crestor) 40 mg PO HS [facility] Last Admin: 01/14/18 21:27 Dose: 40 mg Theophylline (Jose C-24) 300 mg PO DAILY [facility] Last Admin: 01/15/18 10:38 Dose: 300 mg Tramadol HCl (Ultram) 50 mg PO Q6 PRN PRN Reason: pain Last Admin: 01/15/18 11:32 Dose: 50 mg - Labs Labs: 01/15/18 07:16 01/15/18 07:16 PT 12.4 SECONDS (9.7-12.2) H 01/14/18 06:47 INR 1.1 01/14/18 06:47 APTT 55 SECONDS (21-34) H 01/07/18 09:51 - Constitutional Appears: Well, Non-toxic, No Acute Distress - Extremities Exam Additional comments: Left lower extremity focused exam: Vasc: DP/PT non palpable pulses. CFT < 3 sec in all digits, Temp gradient warm to cool. No edema. Neuro: Gross sensation intact. Protective sensation grossly diminished. Derm: At the site of L hallux amputation there is an open wound linear in shape measuring approx 3.0cm x 1cm x 0.1cm with minimal drainage, no malodor, minimal erythema around the edges. Maceration to wound borders noted to have resolved. Wound base is 50% granular and 50% fibrotic in nature. No undermining , no tracking and no probing to bone. No signs of active bacterial infection. Ortho: Mild-moderate pain on palpation of the hallux stump ulceration site - Neurological Exam Neurological Exam: Alert, Awake, Oriented x3 - Psychiatric Exam Psychiatric exam: Normal Affect, Normal Mood Assessment and Plan - Assessment and Plan (Free Text) Assessment: 57 year old female patient seen and evaluated at the bedside for L foot open wound at the site of amputated hallux Plan: Patient was seen and evaluated at bedside Plan discussed with the attending Dr. Bhat Dressing was done for the open wound using Betadine, DSD, and Reina Wilson ordered No further wound debridement to be performed Podiatry to continue with conservative local wound care Patient expressed verbal understanding Podiatry will follow patient while in house
--- NOTE | 2018-01-15 17:09 | CP.PCM.PN ---
Subjective - Date & Time of Evaluation Date of Evaluation: 01/15/18 Time of Evaluation: 07:30 - Subjective Subjective: clinically same Objective - Vital Signs/Intake and Output Vital Signs (last 24 hours): Temp Pulse Resp BP Pulse Ox 98.5 F 90 18 135/75 99 01/15/18 07:25 01/15/18 07:25 01/15/18 07:25 01/15/18 07:25 01/15/18 07:25 Intake and Output: 01/15/18 01/15/18 06:59 18:59 Intake Total 600 700 Balance 600 700 - Labs Labs: 01/15/18 07:16 01/15/18 07:16 PT 12.4 SECONDS (9.7-12.2) H 01/14/18 06:47 INR 1.1 01/14/18 06:47 APTT 55 SECONDS (21-34) H 01/07/18 09:51 - Constitutional Appears: Well - Head Exam Head Exam: ATRAUMATIC, NORMAL INSPECTION, NORMOCEPHALIC - Eye Exam Eye Exam: EOMI, Normal appearance, PERRL Pupil Exam: NORMAL ACCOMODATION, PERRL - ENT Exam ENT Exam: Mucous Membranes Moist, Normal Exam - Neck Exam Neck Exam: Full ROM, Normal Inspection. absent: Lymphadenopathy - Respiratory Exam Respiratory Exam: Decreased Breath Sounds - Cardiovascular Exam Cardiovascular Exam: REGULAR RHYTHM, +S1, +S2 - GI/Abdominal Exam GI & Abdominal Exam: Soft, Diminished Bowel Sounds - Rectal Exam Rectal Exam: Deferred Assessment and Plan (1) GI bleed Status: Acute (2) Symptomatic anemia Status: Acute (3) Amputation of fifth toe, left, traumatic Status: Acute (4) Anemia Status: Acute (5) Coagulopathy Status: Acute (6) S/P MVR (mitral valve replacement) Status: Acute (7) Small intestinal hemorrhage requiring more than four units of blood in 24 hours, admission to ICU, or surgery Status: Acute (8) Toe gangrene Status: Acute (9) Uncontrolled hypertension Status: Acute (10) CAD (coronary artery disease) Status: Chronic (11) Dyslipidemia Status: Chronic (12) PVD (peripheral vascular disease) Status: Chronic (13) Uncontrolled diabetes mellitus Status: Chronic
--- NOTE | 2018-01-15 21:08 | PN ---
DATE: 01/15/2018 SUBJECTIVE: The patient denies any rectal bleeding. She denies any chest pain, dizziness, or weakness. PHYSICAL EXAMINATION: VITAL SIGNS: Blood pressure 135/75, heart rate 90, temperature 98.5, respirations 18. HEENT: Pale conjunctivae. CHEST: Clear. HEART: S1, S2 regular. EXTREMITIES: No edema. LABORATORY DATA: Today's SMA-7 is within normal limits except for glucose of 132. Today's hemoglobin and hematocrit 10.1 and 30.1, white count and platelet count are within normal limits. ASSESSMENT: 1. Status post lower gastrointestinal bleeding. 2. Improved iatrogenic coagulopathy. 3. Status post mitral and aortic mechanical valve replacement three days ago. 4. Peripheral vascular disease, status post bilateral lower extremity stenting and recently left big toe amputation. RECOMMENDATIONS: Continue current Cozaar 100 mg once a day, Crestor 40 mg once a day, folic acid 1 mg once a day, hydrochlorothiazide 25 mg once a day, Jose C-Dur 300 mg once a day, Toprol-XL 50 mg once a day. I have discussed the patient with the medical team, and patient is not cleared for Coumadin therapy by Dr. Zhou, butter melter. The plan is to discharge the patient today and have the patient follow up this coming i.e. in four [address] Zhou who will consider resumption of Coumadin therapy when he see the patient in the office. Unfortunately, the risks of thromboembolic disease would continue; however given the recent course of the patient GI bleeding during her last admission at [facility], I recommend that Coumadin will only be started once gastrointestinal evaluation and clearance has approved of the Coumadin. Kraig Sheldon MD
--- NOTE | 2018-01-16 06:39 | CARD ---
APPROVED REPORT EKG Measurement Heart [id number] HI [id number] <Conclusion> Normal sinus rhythm Prolonged QT Abnormal ECG
[2018-01-16] MEDS ORDERED: Collagenase 250 Units/gm Ointment(30 gm) TOP SCH (10:00)
== END 2018-01-15 17:05 | disposition home health service (06) | DRG 813 ==
LOC: C.ER 08:04 → C.3T 10:59
PROVIDERS: ADMIT Internal Medicine Nephrology; ATTEND Internal Medicine Nephrology
PROC: 30233N1 Transfusion of Nonautologous Red Blood Cells into Peripheral Vein, Percutaneous Approach (ICD-10-PCS; principal; 2018-01-07)
PROC: 02HV33Z Insertion of Infusion Device into Superior Vena Cava, Percutaneous Approach (ICD-10-PCS; 2018-01-08)
PROC: B548ZZA Ultrasonography of Superior Vena Cava, Guidance (ICD-10-PCS; 2018-01-08)
DX: D68.32 Hemorrhagic disorder due to extrinsic circulating anticoagulants (principal); D50.0 Iron deficiency anemia secondary to blood loss (chronic); K92.2 Gastrointestinal hemorrhage, unspecified; T45.515A Adverse effect of anticoagulants, initial encounter; E11.51 Type 2 diabetes mellitus with diabetic peripheral angiopathy without gangrene; E87.6 Hypokalemia; E11.621 Type 2 diabetes mellitus with foot ulcer; L97.529 Non-pressure chronic ulcer of other part of left foot with unspecified severity; T87.89 Other complications of amputation stump; E11.65 Type 2 diabetes mellitus with hyperglycemia; I10 Essential (primary) hypertension; I25.10 Atherosclerotic heart disease of native coronary artery without angina pectoris; J45.909 Unspecified asthma, uncomplicated; G40.909 Epilepsy, unspecified, not intractable, without status epilepticus; E78.5 Hyperlipidemia, unspecified; E78.00 Pure hypercholesterolemia, unspecified; F17.210 Nicotine dependence, cigarettes, uncomplicated; Z79.01 Long term (current) use of anticoagulants; Z95.2 Presence of prosthetic heart valve; Z79.4 Long term (current) use of insulin; Z89.412 Acquired absence of left great toe